=== PATIENT | male | born 1965 | race Caucasian/White ===

== ENCOUNTER 2018-03-10 09:50 | Emergency (ER) | payer BC, OTHER ==
[2018-03-10 09:58] VITALS: RESP 18; TEMP 98.2
[2018-03-10] MEDS ORDERED: DIPH,PERTUS(ACELL)TETVAC-LF 0.5 ML VIAL IM ONE (10:24)
--- NOTE | 2018-03-10 10:44 | ED ---
General Adult HPI - General Chief complaint: Fall Stated complaint: IHS-Head Lac Time Seen by Provider: 03/10/18 10:16 Source: patient, RN notes reviewed Mode of arrival: wheelchair Limitations: no limitations - History of Present Illness Initial comments: Patient 52-year-old male presented to the emergency room today with a chief complaint of a head injury that occurred just prior to arrival. Patient does admit that he was at work. He states he does not remember the fall. Does not remember: His boss. History is provided by his boss is at bedside. He states that he called them telling him that he slipped and hit his head and was bleeding. He does admit that he was at a house and couldn't tell by Lazarus in the snow that it appeared that he came out of the house slipped and believes that he hit the back of his head on a stair edge causing this laceration. Patient states he is unsure if he lost consciousness as he does not remember the accident. States is not on any blood thinners. He does admit some mild low back pain and neck pain. Patient denies any other complaints. Patient denies any recent fever, chills, shortness of breath, chest pain, abdominal pain , nausea or vomiting, numbness or tingling, visual changes, or any other complaints. - Related Data Home Medications Medication Instructions Recorded Confirmed No Known Home Medications 03/10/18 03/10/18 Allergies Allergy/AdvReac Type Severity Reaction Status Date / Time monosodium glutamate [MSG] AdvReac MIGRAINES Verified 03/10/18 10:25 Review of Systems ROS Statement: Those systems with pertinent positive or pertinent negative responses have been documented in the HPI. ROS Other: All systems not noted in ROS Statement are negative. Past Medical History Past Medical History: Osteoarthritis (OA) Additional Past Medical History / Comment(s): 03-20-15 ADMITTED W/ LT LEG SWELLING,PAIN SOB IF LYING DOWN BETTER IF SITS UP- HAD US POSITIVE FOR DVT. CLINCIAL IMPRESSION: PAULETTE PE, DVT, DYSPNEA ASBESTOS EXPOSURE BUT RECENT CHEST X RAY CLEAR, HIATAL HERNIA, MIGRAINES TRIGGERED BY MSG.KIDNEY STONES 11 YEARS AGO PASSED OWN OWN. History of Any Multi-Drug Resistant Organisms: None Reported Past Surgical History: Back Surgery, Orthopedic Surgery, Tonsillectomy Additional Past Surgical History / Comment(s): ROTATOR CUFF SURGERY APPROX 3 WEEKS AGO AT [facility], FUSION C5-C6, CYST REMOVED RT AXILLA AGE 8 Past Anesthesia/Blood Transfusion Reactions: No Reported Reaction Past Psychological History: No Psychological Hx Reported Smoking Status: Never smoker Past Alcohol Use History: None Reported Past Drug Use History: None Reported - Past Family History Father History Unknown: Yes Additional Family Medical History / Comment(s): PT WAS RAISED BY STEP FATHER Mother Family Medical History: Diabetes Mellitus, Hypertension Brother(s) Family Medical History: No Reported History Sister(s) Family Medical History: No Reported History Daughter(s) Family Medical History: Asthma General Exam - General Exam Comments Initial Comments: General: The patient is awake and alert, in no distress, and does not appear acutely ill. Eye: Pupils are equal, round and reactive to light, extra-ocular movements are intact. No nystagmus. There is normal conjunctiva bilaterally. No signs of icterus. Ears, nose, mouth and throat: There are moist mucous membranes and no oral lesions. Neck: The neck is supple, there is no tenderness or JVD. Cardiovascular: There is a regular rate and rhythm. No murmur, rub or gallop is appreciated. Respiratory: Lungs are clear to auscultation, respirations are non-labored, breath sounds are equal. No wheezes, stridor, rales, or rhonchi. Gastrointestinal: Soft, non-distended, non-tender abdomen without masses or organomegaly noted. There is no rebound or guarding present. No CVA tenderness Musculoskeletal: Normal ROM. Normal appearance of cervical, thoracic and lumbar spine with no step-off deformity. Patient has no tenderness midline in cervical, thoracic or lumbar spine. Strength 5/5. Sensation intact. Pulses equal bilaterally 2+. Normal finger nose testing. Normal rapid alternating movements. Strength 5/5 bilaterally both upper and lower extremities. Neurological: A&O x 3. CN II-XII intact, There are no obvious motor or sensory deficits. Coordination appears grossly intact. Speech is normal. Skin: Skin is warm and dry and no rashes or lesions are noted. Psychiatric: Cooperative, appropriate mood & affect, normal judgment. Limitations: no limitations Course Vital Signs 03/10/18 09:55 Temperature 98.2 F Pulse Rate 89 Respiratory 18 Rate Blood Pressure 141/94 O2 Sat by Pulse 94 L Oximetry Medical Decision Making - Medical Decision Making CT the head and neck is negative for any acute abnormality. Results were discussed with the patient. Patient will be discharged home as is doing well at this time. Signs and symptoms of concussion were discussed in detail. Patient does have laceration to back of the scalp. No suturing or nader required. Patient will be discharged home to follow-up family doctor in the next 2 days. Advised to return here to emergency room symptoms increase or worsen or for any other concerns. Disposition Clinical Impression: Concussion, Fall, Scalp laceration Disposition: HOME SELF-CARE Condition: Good Instructions: Concussion (ED) Additional Instructions: Please use medication as discussed. Please follow-up with family doctor in the next 2 days. Please return to emergency room if the symptoms increase or worsen or for any other concerns. Is patient prescribed a controlled substance at d/c from ED?: No Referrals: Alfonso Palm DO [Primary Care Provider] - 1-2 days Time of Disposition: 12:30
--- NOTE | 2018-03-10 11:35 | CT ---
EXAMINATION TYPE: CT brain [facility] DATE OF EXAM: 03/10/2018 COMPARISON: NONE HISTORY: Fall injury striking back of head with headache and neck pain CT DLP: 1521.3 mGycm. Automated Exposure Control for Dose Reduction was Utilized. TECHNIQUE: CT scan of the head and cervical spine are performed without contrast. FINDINGS: There is no acute intracranial hemorrhage, mass effect, or midline shift identified. The ventricles and sulci are within normal limits in size. Septum pellucidum vergae is incidentally see n. The globes are intact and the visualized sinuses are clear. The calvarium is intact. Cervical spine is visualized in its entirety from C1 through upper thoracic levels and demonstrates s traightened alignment without evidence of acute fracture or dislocation. Prevertebral soft tissue ap pears within normal limits. The C1-C2 articulation shows asymmetric right-sided mild to moderate rosey rowing and spurring on the coronal images. There is moderate narrowing of the atlantodental interval . There is anterior fusion plate with artificial disc material and ossific fusion C5-C6 level. There is mild to moderate disc space narrowing with moderate anterior spurring C4-C5 level. There is modera te anterior spurring C6-C7 level. Posterior spur disc complexes are effacing anterior thecal sac at C 3-C4 and C4-C5 level on sagittal images. Review of axial images shows left-sided uncovertebral facet spurring causing mild to moderate narrowi ng at C2-C3 level. Axial images at C4-C5 level show broad-based spur disc complex effacing anterior thecal sac and causi ng moderate to severe right greater than left bilateral neural foraminal narrowing. Lower cervical levels felt within normal limits. Thyroid gland is felt within normal limits. Lung api lyla are clear. IMPRESSION: 1. There is no acute fracture or dislocation evident in the cervical spine. 2. No acute intracranial hemorrhage or midline shift is seen.
--- NOTE | 2018-03-10 11:46 | XR ---
Lumbar spine history: Trauma and pain 3 views of the lumbar spine Correlation to lumbar MRI 01/21/2016 Anterolisthesis grade 1 L4-5 is stable. There is multilevel spondylosis. Loss of disc height present L4-5, L5-S1. Facet arthropathy changes are noted. Lumbar vertebral bodies show preserved height and b one mineralization. IMPRESSION: No acute fracture or subluxation. Degenerative disc disease and facet arthropathy.
[2018-03-10] MEDS ORDERED: IBUPROFEN 600 MG TAB PO STA (12:31)
[2018-03-10 12:53] VITALS: BP 112/74; PULSE 72
== END 2018-03-10 13:10 | disposition home or self-care (01) ==
LOC: EC 09:50
DX: S06.0X0A Concussion without loss of consciousness, initial encounter (principal); S01.01XA Laceration without foreign body of scalp, initial encounter; M54.2 Cervicalgia; M54.5 Low back pain; Z23 Encounter for immunization; Z86.711 Personal history of pulmonary embolism; Z86.718 Personal history of other venous thrombosis and embolism; Z87.442 Personal history of urinary calculi; Z98.1 Arthrodesis status; Z98.890 Other specified postprocedural states; Z88.8 Allergy status to other drugs, medicaments and biological substances; W01.10XA Fall on same level from slipping, tripping and stumbling with subsequent striking against unspecified object, initial encounter; Y92.69 Other specified industrial and construction area as the place of occurrence of the external cause; Y99.0 Civilian activity done for income or pay
CPT/HCPCS: 70450; 72100; 72125; 90471; 90715; 99284

== ENCOUNTER → 2018-04-01 | Outpatient (CLI) | payer OTHER ==
--- NOTE | 2018-04-01 22:48 | MR ---
EXAMINATION TYPE: MR brain wo con DATE OF EXAM: 04/01/2018 COMPARISON: CT brain March 10, 2018. HISTORY: Dizziness, headaches, off balance, hx head trauma TECHNIQUE: Multiplanar, multisequence imaging of the brain and brainstem is performed without IV cont rast. FINDINGS: Diffusion weighted images demonstrate no evidence of a recent infarct or other diffusion abnormality. There is no worrisome extra-axial fluid collection. The ventricular system and cisternal spaces are normal in size and appearance. The brain volume is age appropriate. Septum pellucidum vergae is rede monstrated. T2*weighted images show no suspicious intraparenchymal blood product. There are few scatt ered foci of T2 hyperintensity seen throughout the white matter bilaterally. Approximately 15-20 scat tered lesions are present, lesions are nonspecific in appearance and distribution but most likely on basis of product of chronic small vessel ischemic change in patient this age. Midline structures demonstrate normal morphology. The craniocervical junction appears within normal limits. Normal vascular flow voids are present. The visualized sinuses are clear and the globes are i ntact. IMPRESSION: Msas-ps-[id number] nonspecific white matter changes may be on the basis of product of chron ic small vessel ischemic change in a patient of this age. No suspicious intraparenchymal blood produc t is noted.
--- NOTE | 2018-04-01 23:22 | MR ---
EXAMINATION TYPE: MR lumbar spine wo con DATE OF EXAM: 04/01/2018 COMPARISON: Prior MRI lumbar spine January 21, 2016. Prior lumbar spine x-ray March 10 2018. HISTORY: LBP, tingling/numbness lt leg after fall on ice 3 wks ago TECHNIQUE: Multiplanar, multisequence imaging of the lumbar spine is performed without IV contrast. FINDINGS: Sagittal images of the lumbar spine show vertebral body heights and alignment to remain sat isfactory. Multilevel disc desiccation is redemonstrated but this space heights are fairly well maint ained. Small posterior disc herniation L5-S1 level is redemonstrated with increased posterior signal consistent with annular tear redemonstrated. The conus medullaris remains normal in position and sig nal ending at T12-L1 disc space level. The bone marrow signal intensity is within normal limits. Mil d multilevel anterior spurring is present. Axial images at T12-L1 and L1-L2 levels region is mild facet degenerative changes bilaterally but the spinal canal is preserved and bilateral neural foramina are patent. Axial images at L2-L3 level show kkcz-im-ochrnpjg broad disc bulge mildly effaces the anterior thecal sac 9 axial image 18. There are mild facet degenerative changes seen bilaterally. There is mild left and jlvz-ux-esuvmonl right-sided anterior inferior neural foraminal narrowing. Some progression fro m prior study is felt present. Axial images at L3-L4 level show moderate broad disc bulge effacing the anterior thecal sac on axial image 12. There is mild/moderate facet degenerative changes seen bilaterally. There is lqpp-fq-xxmtsc te bilateral anterior inferior neural foraminal narrowing redemonstrated. No significant change from prior. Axial images at L4-L5 level show moderate to advanced facet degenerative changes and ligamentum flavu m hypertrophy with some effacement of the posterior lateral thecal sac. There is eqpd-kz-fysvsyuv bro ad-based posterior disc protrusion effacing the anterior thecal sac. There is cthq-sp-itfsqxoz bilate ral anterior inferior neural foraminal narrowing seen. No significant change from prior MRI is noted. Axial images at the L5-S1 level shows moderate facet degenerative changes bilaterally. There is centr al disc protrusion seen in the spinal canal is preserved as is prominence of epidural fat at this lev el identified. Bilateral neural foramina are patent. Paraspinal muscle bulk is preserved. IMPRESSION: Multilevel degenerative changes in lumbar spine as detailed above with most prominent fin dings noted L4-L5 level. Some progression in degenerative changes L2-L3 level are noted from prior MR I.
== END | disposition home or self-care (01) ==
LOC: RADMRIMAIN 20:54
PROVIDERS: ATTEND Emergency Medicine
DX: M47.816 Spondylosis without myelopathy or radiculopathy, lumbar region (principal); R90.89 Other abnormal findings on diagnostic imaging of central nervous system; G44.321 Chronic post-traumatic headache, intractable; S00.03XA Contusion of scalp, initial encounter; S13.4XXA Sprain of ligaments of cervical spine, initial encounter; S30.0XXA Contusion of lower back and pelvis, initial encounter; R20.9 Unspecified disturbances of skin sensation
CPT/HCPCS: 70551; 72148

== ENCOUNTER 2021-01-11 08:05 | Inpatient (IN) | payer BC, OTHER ==
[2021-01-11] MEDS ORDERED: DEXAMETHASONE SOD PHOSPHATE 10 MG/ML 1 ML VIAL IVP STA (08:19)
[2021-01-11] MEDS ORDERED: SODIUM CHLORIDE 0.9% 1,000 ML IV STA (08:19)
[2021-01-11] MEDS ORDERED: ACETAMINOPHEN TAB 325 MG TAB PO STA (08:23)
[2021-01-11] MEDS ORDERED: IBUPROFEN 800 MG TAB PO STA (08:23)
[2021-01-11 09:03] LABS: Basophils % (A) 1 %; Eosinophils % (A) 0 %; HCT 50.1 % (39.0-53.0); HGB 16.8 gm/dL (13.0-17.5); Lymphocytes # (A) 0.9 k/uL (1.0-4.8); Lymphocytes % (A) 14 %; MCH 30.6 pg (25.0-35.0); MCHC 33.5 g/dL (31.0-37.0); MCV 91.2 fL (80.0-100.0); Mean Platelet Volume 7.9; Monocytes # (A) 0.2 k/uL (0-1.0); Monocytes % (A) 4 %; Neutrophils # (A) 4.9 k/uL (1.3-7.7); Neutrophils % (A) 80 %; Platelet Count 128 k/uL (150-450); RBC 5.49 m/uL (4.30-5.90); RDW 12.8 % (11.5-15.5); WBC 6.1 k/uL (3.8-10.6)
--- NOTE | 2021-01-11 09:12 | XR ---
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 There are patchy bilateral airspace opacity greatest in the mid and lower lungs. No pleural effusion. IMPRESSION: Patchy bilateral airspace disease especially mid and lower lungs. Correlate for multifocal pneumonia including the possibility of COVID pneumonia.
[2021-01-11 09:43] LABS: INR 0.9 (<1.2); Partial Thromboplastin Time 23.4 sec (22.0-30.0); Prothrombin Time 9.9 sec (9.0-12.0)
[2021-01-11 10:24] LABS: ALT 37 U/L (4-49); AST 36 U/L (17-59); African American GFR (CKD) >90 (>60 ml/min/1.73 sqM); Albumin 2.8 g/dL (3.5-5.0); Alkaline Phosphatase 48 U/L (38-126); Anion Gap 5 mmol/L; Blood Urea Nitrogen 15 mg/dL (9-20); Calcium 7.6 mg/dL (8.4-10.2); Carbon Dioxide 23 mmol/L (22-30); Chloride 103 mmol/L (98-107); Glucose 147 mg/dL (74-99); Non-African American GFR(CKD) 87 (>60 ml/min/1.73 sqM); Potassium 3.9 mmol/L (3.5-5.1); Sodium 131 mmol/L (137-145); Total Bilirubin 0.7 mg/dL (0.2-1.3); Total Protein 5.2 g/dL (6.3-8.2)
[2021-01-11] MEDS ORDERED: NALOXONE 0.4 MG/ML 1 ML VIAL IV PRN (10:47)
--- NOTE | 2021-01-11 11:18 | CT ---
EXAMINATION TYPE: CT chest angio for PE DATE OF EXAM: 01/11/2021 COMPARISON: Chest x-ray earlier today. CTA chest August 01, 2015 HISTORY: Positive d-dimer, shortness of breath, +covid. CT DLP: 513 mGycm. Automated Exposure Control for Dose Reduction was Utilized. CONTRAST: CTA scan of the thorax is performed with IV Contrast, patient injected with 100 mL of Isovue 370, pul monary embolism protocol. MIP Images are created on CT scanner and reviewed. FINDINGS: Exam is suboptimal as patient unable to hold breath. LUNGS: Bilateral multifocal groundglass opacities are confirmed greater in the right lung versus left lung and greater in the lower lungs worse upper lungs were they are more confluent in appearance. No significant pleural effusion or pneumothorax. MEDIASTINUM: There is suboptimal bolus with most dense contrast in the SVC and there is contrast in t he aorta versus pulmonary arteries. There is heterogeneity in the periphery, there is no central pulm onary embolism. Cannot entirely exclude segmental and subsegmental pulmonary emboli on this study. Th ere are prominent borderline enlarged prevascular along with AP window and subcarinal lymph nodes. Mi ldly enlarged bilateral hilar lymph nodes. No cardiomegaly or pericardial effusion is seen. Main pu lmonary artery mildly enlarged at 3.2 cm, CT findings suggesting underlying pulmonary artery hyperten freddy. OTHER: Visualized liver is markedly hypodense consistent with diffuse fatty infiltration. Subareolar flame-shaped gynecomastia. IMPRESSION: Suboptimal study without central acute pulmonary embolism. Bilateral multifocal and confl uent groundglass opacities right greater than left greater in the lower lungs consistent with known c ovid-19 infection correlates with same day x-ray.
[2021-01-11] MEDS: SODIUM CHLORIDE 0.9% 1,000 ML IV SCH ×2 (11:28→20:11)
--- NOTE | 2021-01-11 11:33 | ED ---
Fever HPI - General Chief Complaint: Fever Stated Complaint: SOB, fever, cough Time Seen by Provider: 01/11/21 08:16 Source: patient, RN notes reviewed Mode of arrival: ambulatory Limitations: physical limitation - History of Present Illness Initial Comments: Patient is a 55-year-old male that presents to the emergency department complaining of increased shortness of breath, fatigue He notes that he has become increasingly short of breath with minimal activity over the past several days. He notes this is what brought him into the emergency department get evaluated. Denied being vaccinated for Covid. Patient denied any previous lung issues and does not follow-up with a specialist. He denied any chest pain headache nausea vomiting diarrhea constipation chills. - Related Data Home Medications Medication Instructions Recorded Confirmed Betamethasone Dipropionate 1 applic TOPICAL BID 01/11/21 01/11/21 [Betamethasone Dipropionate 0.05%] Allergies Allergy/AdvReac Type Severity Reaction Status Date / Time monosodium glutamate [MSG] AdvReac MIGRAINES Verified 01/11/21 09:54 Review of Systems ROS Statement: Those systems with pertinent positive or pertinent negative responses have been documented in the HPI. ROS Other: All systems not noted in ROS Statement are negative. Past Medical History Past Medical History: Osteoarthritis (OA) Additional Past Medical History / Comment(s): 03-20-15 ADMITTED W/ LT LEG SWELLING,PAIN SOB IF LYING DOWN BETTER IF SITS UP- HAD US POSITIVE FOR DVT. CLINCIAL IMPRESSION: PAULETTE PE, DVT, DYSPNEA ASBESTOS EXPOSURE BUT RECENT CHEST X RAY CLEAR, HIATAL HERNIA, MIGRAINES TRIGGERED BY MSG.KIDNEY STONES 11 YEARS AGO PASSED OWN OWN. History of Any Multi-Drug Resistant Organisms: None Reported Past Surgical History: Back Surgery, Orthopedic Surgery, Tonsillectomy Additional Past Surgical History / Comment(s): ROTATOR CUFF SURGERY APPROX 3 WEEKS AGO AT [facility], FUSION C5-C6, CYST REMOVED RT AXILLA AGE 8 Past Anesthesia/Blood Transfusion Reactions: No Reported Reaction Past Psychological History: No Psychological Hx Reported Past Alcohol Use History: None Reported Past Drug Use History: None Reported - Past Family History Father History Unknown: Yes Additional Family Medical History / Comment(s): PT WAS RAISED BY STEP FATHER Mother Family Medical History: Diabetes Mellitus, Hypertension Brother(s) Family Medical History: No Reported History Sister(s) Family Medical History: No Reported History Daughter(s) Family Medical History: Asthma General Exam Limitations: no limitations General appearance: alert, in no apparent distress, obese Head exam: Present: atraumatic, normocephalic, normal inspection Eye exam: Present: normal appearance, PERRL, EOMI. Absent: scleral icterus, conjunctival injection, periorbital swelling ENT exam: Present: normal exam, mucous membranes moist Neck exam: Present: normal inspection Respiratory exam: Present: normal lung sounds bilaterally. Absent: respiratory distress, wheezes, rales, rhonchi, stridor Cardiovascular Exam: Present: regular rate, normal rhythm, normal heart sounds. Absent: systolic murmur, diastolic murmur, rubs, gallop, clicks GI/Abdominal exam: Present: soft, normal bowel sounds. Absent: distended, t enderness, guarding, rebound, rigid Extremities exam: Present: normal inspection, full ROM, normal capillary refill. Absent: tenderness, pedal edema, joint swelling, calf tenderness Neurological exam: Present: alert, oriented X3 Psychiatric exam: Present: normal affect, normal mood Skin exam: Present: warm, dry, intact, normal color. Absent: rash Course Vital Signs 01/11/21 01/11/21 08:07 09:32 Temperature 101.1 F H 100.1 F H Pulse Rate 90 86 Respiratory 22 18 Rate Blood Pressure 122/80 O2 Sat by Pulse 85 L 95 Oximetry Medical Decision Making - Medical Decision Making 55-year-old male complaining of shortness of breath, fever and fatigue. Covid test, labs, chest x-ray, 10 mg of Decadron ordered. 3 L of oxygen via nasal cannula ordered. Covid test positive. Labs: D-dimer 0.83, rest of labs unremarkable. 650 mg of Tylenol, 800 mg of Motrin ordered for fever. CTA of the chest ordered for possible pulmonary embolism. Dr. Gilliland was consulted and will accept the admit with pulmonary on consult. Upon arrival patient's oxygen saturation room air was 85% but increased to 95 with 3 L oxygen. Rest of vitals stable. Case discussed with Dr. Mcgovern. - Lab Data Result diagrams: 01/11/21 08:45 01/11/21 10:05 Lab Results 01/11/21 01/11/21 01/11/21 Range/Units 08:45 08:45 08:45 WBC 6.1 (3.8-10.6) k/uL RBC 5.49 (4.30-5.90) m/uL Hgb 16.8 (13.0-17.5) gm/dL Hct 50.1 (39.0-53.0) % MCV 91.2 (80.0-100.0) fL MCH 30.6 (25.0-35.0) pg MCHC 33.5 (31.0-37.0) g/dL RDW 12.8 (11.5-15.5) % Plt Count 128 L (150-450) k/uL MPV 7.9 Neutrophils % 80 % Lymphocytes % 14 % Monocytes % 4 % Eosinophils % 0 % Basophils % 1 % Neutrophils # 4.9 (1.3-7.7) k/uL Lymphocytes # 0.9 L (1.0-4.8) k/uL Monocytes # 0.2 (0-1.0) k/uL Eosinophils # 0.0 (0-0.7) k/uL Basophils # 0.0 (0-0.2) k/uL PT 9.9 (9.0-12.0) sec INR 0.9 (<1.2) APTT 23.4 (22.0-30.0) sec D-Dimer 0.82 H (<0.60) mg/L FEU Sodium (137-145) mmol/L Potassium (3.5-5.1) mmol/L Chloride (98-107) mmol/L Carbon Dioxide (22-30) mmol/L Anion Gap mmol/L BUN (9-20) mg/dL Creatinine (0.66-1.25) mg/dL Est GFR (CKD-EPI)AfAm (>60 ml/min/1.73 sqM) Est GFR (CKD-EPI)NonAf (>60 ml/min/1.73 sqM) Glucose (74-99) mg/dL Plasma Lactic Acid Brandan 1.1 (0.7-2.0) mmol/L Calcium (8.4-10.2) mg/dL Total Bilirubin (0.2-1.3) mg/dL AST (17-59) U/L ALT (4-49) U/L Alkaline Phosphatase (38-126) U/L Troponin I (0.000-0.034) ng/mL Total Protein (6.3-8.2) g/dL Albumin (3.5-5.0) g/dL Coronavirus (PCR) (Not Detectd) 01/11/21 01/11/21 01/11/21 Range/Units 08:45 10:05 10:05 WBC (3.8-10.6) k/uL RBC (4.30-5.90) m/uL Hgb (13.0-17.5) gm/dL Hct (39.0-53.0) % MCV (80.0-100.0) fL MCH (25.0-35.0) pg MCHC (31.0-37.0) g/dL RDW (11.5-15.5) % Plt Count (150-450) k/uL MPV Neutrophils % % Lymphocytes % % Monocytes % % Eosinophils % % Basophils % % Neutrophils # (1.3-7.7) k/uL Lymphocytes # (1.0-4.8) k/uL Monocytes # (0-1.0) k/uL Eosinophils # (0-0.7) k/uL Basophils # (0-0.2) k/uL PT (9.0-12.0) sec INR (<1.2) APTT (22.0-30.0) sec D-Dimer (<0.60) mg/L FEU Sodium 131 L (137-145) mmol/L Potassium 3.9 (3.5-5.1) mmol/L Chloride 103 (98-107) mmol/L Carbon Dioxide 23 (22-30) mmol/L Anion Gap 5 mmol/L BUN 15 (9-20) mg/dL Creatinine 0.98 (0.66-1.25) mg/dL Est GFR (CKD-EPI)AfAm >90 (>60 ml/min/1.73 sqM) Est GFR (CKD-EPI)NonAf 87 (>60 ml/min/1.73 sqM) Glucose 147 H (74-99) mg/dL Plasma Lactic Acid Brandan (0.7-2.0) mmol/L Calcium 7.6 L (8.4-10.2) mg/dL Total Bilirubin 0.7 (0.2-1.3) mg/dL AST 36 (17-59) U/L ALT 37 (4-49) U/L Alkaline Phosphatase 48 (38-126) U/L Troponin I <0.012 (0.000-0.034) ng/mL Total Protein 5.2 L (6.3-8.2) g/dL Albumin 2.8 L (3.5-5.0) g/dL Coronavirus (PCR) Detected A (Not Detectd) - Radiology Data Radiology results: report reviewed, image reviewed CT chest: Suboptimal study without central acute pulmonary embolism. Bilateral multifocal and confluent groundglass opacities right greater than left, greater in the lower lungs consistent with known COVID-19 infection correlates with same-day x-ray. Disposition Clinical Impression: COVID, Hypoxia Disposition: ADMITTED IP TO THIS HOSP Condition: Stable Referrals: Alfonso Palm DO [Primary Care Provider] - 1-2 days Time of Disposition: 11:33
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
[2021-01-11] MEDS: dexAMETHasone 2 MG TAB PO SCH (14:52)
[2021-01-11] MEDS: ENOXAPARIN 40 MG/0.4 ML SYRINGE SQ SCH (14:52)
[2021-01-11] MEDS: ZINC SULFATE 220 MG CAP PO SCH (14:52)
[2021-01-11] MEDS: ASCORBIC ACID 500 MG TAB PO SCH (14:53)
[2021-01-11] MEDS: CHOLECALCIFEROL 25 MCG (1000 IU) TABLET PO SCH (14:53)
[2021-01-11] MEDS ORDERED: REMDESIVIR 200 MG in SODIUM CHLORIDE 0.9% 250 ML IVPB ONE (15:00)
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
--- NOTE | 2021-01-11 19:43 | US ---
EXAMINATION TYPE: US venous doppler duplex LE DATE OF EXAM: 01/11/2021 7:23 PM COMPARISON: Left lower extremity venous Doppler dated 03/20/2015 CLINICAL HISTORY: elevated d-dimer. Prior DVT; Covid -19 SIDE PERFORMED: Bilateral TECHNIQUE: The lower extremity deep venous system is examined utilizing real time linear array sonog gaurav with graded compression, doppler sonography and color-flow sonography. VESSELS IMAGED: Common Femoral Vein Deep Femoral Vein Greater Saphenous Vein * Femoral Vein Popliteal Vein Small Saphenous Vein * Proximal Calf Veins (* superficial vessels) Grayscale, color doppler, spectral doppler imaging performed of the deep veins of the lower extremiti es. Right Leg: Negative for DVT Left Leg: Wall echoes are noted in distal Popliteal Vein and at valves in one of 2 upper calf veins suggestive of chronic changes. Color flow patency is documented here; otherwise left leg is negative for acute DVT. Tech called findings to patient's RN, Eryn, at exam's end. IMPRESSION: 1. Small amount of increased echogenicity arising from the wall of the distal popliteal vein/proximal calf veins with no obstruction of flow, given the history of prior left lower extremity DVT in the p osterior tibial veins (03/20/2015) findings are favored to be on the basis of chronic DVT no evidence for flow occluding acute DVT in the left lower extremity. 2. No sonographic evidence for acute deep vein thrombosis in the right lower extremity.
[2021-01-11] MEDS: ACETAMINOPHEN TAB 325 MG TAB PO PRN (21:12)
[2021-01-12] MEDS: SODIUM CHLORIDE 0.9% 1,000 ML IV SCH ×3 (02:36→17:01)
[2021-01-12] MEDS: ZINC SULFATE 220 MG CAP PO SCH (08:14)
[2021-01-12] MEDS: ENOXAPARIN 40 MG/0.4 ML SYRINGE SQ SCH (08:14)
[2021-01-12] MEDS: CHOLECALCIFEROL 25 MCG (1000 IU) TABLET PO SCH (08:14)
[2021-01-12] MEDS: dexAMETHasone 2 MG TAB PO SCH (08:14)
[2021-01-12] MEDS: ASCORBIC ACID 500 MG TAB PO SCH (08:14)
[2021-01-12] MEDS: ACETAMINOPHEN TAB 325 MG TAB PO PRN ×2 (08:21→17:02)
[2021-01-12] MEDS ORDERED: REMDESIVIR 100 MG in SODIUM CHLORIDE 0.9% 250 ML IVPB SCH (09:00)
--- NOTE | 2021-01-12 12:13 | P.PN ---
Subjective Progress Note Date: 01/12/21 Principal diagnosis: COVID-19 pneumonia 55-year-old male patient of Dr. Palm, with a past medical history of bilateral pulmonary emboli, and left leg DVT, migraine headaches, hiatal hernia, inguinal hernias, osteoarthritis with previous history of right shoulder arthroscopy, cervical fusion, nonsmoker, who came into the emergency department on 01/11/2021 for evaluation of shortness of breath, fatigue, cough, fever. His symptoms started on Thursday01/11/2021 and became progressive. Patient is not vaccinated against COVID-19. Chest x-ray today shows patchy bilateral airspace disease especially in the mid and lower lungs. COVID-19 PCR was negative, his white count is 6.1, hemoglobin is 16.8, platelet count is 128, lymphocyte count is 0.9, d-dimer is 0.82, coagulation profile was within normal limits, sodium is 131, the rest of electrolytes are within normal limits, troponin was less than 0.012, LFTs were within normal limits, lactic acid was 1.1. CT angiogram of the chest showed suboptimal study without central acute pulmonary embolism, and bilateral multifocal and confluent groundglass opacities right greater than left and greater in the lower lungs consistent with history of COVID-19 infection. Pulse ox was 85%, patient was febrile on presentation with a temp of 101.1F, he was placed on 3 L of supplemental oxygen, he is awake and alert, does not appear to be in any acute distress, he is ambulating, and does have exertional dyspnea but no acute distress. He was started on Decadron 10 mg IV push 1, prophylactic Lovenox, and multivitamins The patient is seen today 01/12/2021 in follow-up on the regular medical floor. He is currently sitting up in a chair at the bedside. His oxygen requirements to go up. He is currently on a 15 L nonrebreather mask with O2 saturation 91%. He was on 4 L yesterday. He is having more shortness of breath. 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 D-dimer 0.84. LDH 684. C-reactive protein 7.0. He is on day #2 of Remdesivir. He remains on Decadron, Lovenox, vitamin supplements. 0.9 normal saline at 130 ML's per hour. Objective - Vital Signs Vital signs: Vital Signs Temp 98.4 F 01/12/21 10:45 Pulse 83 01/12/21 10:45 Resp 22 01/12/21 10:45 BP 104/68 01/12/21 10:45 Pulse Ox 89 L 01/12/21 10:45 Intake & Output 01/11/21 01/12/21 01/12/21 18:59 06:59 18:59 Intake Total 222 Output Total 1 Balance -1 222 Weight 108.862 kg Intake: Oral 222 Output: Urine 1 - Exam GENERAL EXAM: Alert, pleasant 55-year-old gentleman, on 15 L high flow nasal cannula, in a chair at the bedside, make with minimal exertion. HEAD: Normocephalic. EYES: Normal reaction of pupils, equal size. NOSE: Clear with pink turbinates. THROAT: No erythema or exudates. NECK: No masses, no JVD. CHEST: No chest wall deformity. LUNGS: Equal air entry with coarse crackles in the bilateral bases. CVS: S1 and S2 normal with no audible murmur, regular rhythm. ABDOMEN: No hepatosplenomegaly, normal bowel sounds, no guarding or rigidity. SPINE: No scoliosis or deformity SKIN: No rashes CENTRAL NERVOUS SYSTEM: No focal deficits, tone is normal in all 4 extremities. EXTREMITIES: There is no peripheral edema. No clubbing, no cyanosis. Peripheral pulses are intact. - Labs CBC & Chem 7: 01/11/21 08:45 01/11/21 10:05 Labs: Abnormal Lab Results - Last 24 Hours (Table) 01/12/21 Range/Units 07:38 D-Dimer 0.84 H (<0.60) mg/L FEU Assessment and Plan Assessment: 1 Acute hypoxic respiratory failure related to COVID-19 pneumonia, onset of symptoms was 5 days prior to presentation. Patient is not vaccinated against COVID-19, Remdesivir started on 01/11/2021 however the patient's pressure requirements have gone up. Remdesivir we'll be discontinued today 01/12/2021 and the patient will be initiated on Baricitinib 2 Previous history of bilateral pulmonary emboli and left leg DVT back in 2016, currently not on any anticoagulation on a regular basis 3 History of osteoarthritis 4 Nonsmoker Plan: The patient was seen and evaluated by Dr. Canales His oxygen requirements have increased This patient AirVo room at 45 L and 90% FiO2 Titrate the FiO2 as tolerated Discontinue Remdesivir Initiate Baricitinib Continue Decadron, Lovenox, vitamin supplements Doppler with chronic DVT in the left leg, no acute DVT Follow-up chest x-ray and labs in the a.m. We will continue to follow I, the cosigning physician, performed a history & physical examination of the p atient. Lungs sounds crackles in the posterior bases. Maintaining O2 saturations in the 90s on AirVo high flow oxygen at 45 L and 90% FiO2. I discussed the assessment and plan of care with my nurse practitioner, Lakeshia Goldstein. I attest to the above note as dictated by her.
[2021-01-12] MEDS: BARICITINIB 2 MG TABLET PO SCH (14:01)
[2021-01-12 16:42] LABS: Glucose,Whole Blood 243 mg/dL (75-99)
--- NOTE | 2021-01-12 20:05 | P.PN ---
Subjective Progress Note Date: 01/12/21 HISTORY OF PRESENT ILLNESS This is a 55-year-old male patient of Dr. 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 Patient states he has not been feeling well since Thursday. He said shortness of breath cough is nonproductive along with fever and chills, exertional dyspnea. He denies having any nausea vomiting or diarrhea. He denies any close contacts to known Covid people. He states his temperature is been up to 102.7 at home. He is not vaccinated. Patient presented to [facility] emergency center and found to be febrile at 101.1, heart rate 90, blood pressure 122/80, pulse ox 85% on room air. CBC revealed platelet count of 128. D-dimer 0.82. Sodium 131 otherwise electrolytes and renal function were normal. Blood sugar 147. Troponin negative. Coronavirus PCR positive. Chest x-ray reveals patchy bilateral airspace disease especially in the mid and lower lungs. Correlate for multifocal pneumonia including Covid 19 pneumonia. CTA of the chest was suboptimal study without central acute pulmonary embolism. Bilateral multifocal and confluent groundglass opacities right greater than left and greater in the lower lungs consistent with known Covid 19 infection. Patient is seen today in the emergency center waiting for bed on the [facility] floor, started on Remdesivir, Lovenox, dexamethasone and vitamin supplements, consult with pulmonary medicine. 01/12: Patient is comfortable, however he requires 40 L of oxygen via airvo sats 88-89%, he feels better today compared to his nonrebreather mask yesterday, patient did not sleep well, patient does not have any cough, however he does have shortness of breath. Patient denies any aspiration, appetite is still marginal, patient has insomnia vitals, blood sugar currently is 243, creatinine of 0.98, d-dimer is 0.84, CRP is elevated, LDH is elevated, venous Doppler, shows chronic DVT, left popliteal, in the posterior tibial veins, without any obstruction of flow. No acute DVT identified CTA, shows suboptimal, without central acute pulmonary emboli, has bilateral multifocal and confluent groundglass opacities, right greater than left, lower lobe, consistent with COVID-19 infection and remdesivir discontinued by pulmonary today REVIEW OF SYSTEMS Constitutional: Reports fever, Reports chills, Reports night sweats. No weight change. Reports weakness,Reports fatigue Reports lethargy. No daytime sleepiness. EENT: No headache. No blurred vision or double vision, no loss of vision. No loss of Hearing, no ringing in the ears, no dizziness. No nasal drainage or congestion. No epistaxis. No sore throat. Lungs: Reports shortness of breath,Reports cough, no sputum production. No wheezing. Cardiovascular: No chest pain, no lower extremity edema. No palpitations. No paroxysmal nocturnal dyspnea. No orthopnea. No lightheadedness or dizziness. No syncopal episodes. Abdominal: No abdominal pain. No nausea, vomiting. No diarrhea. No constipation. No bloody or tarry stools. No loss of appetite. Genitourinary: No dysuria, increased frequency, urgency. No urinary retention. Musculoskeletal: No myalgias. Reports muscle weakness, no gait dysfunction, no frequent falls. No back pain. No neck pain. Integumentary: No wounds, no lesions. No rash or pruritus. No unusual bruising. No change in hair or nails. Neurologic: No aphasia. No facial droop. No change in mentation. No head injury. No headache. No paralysis. No paresthesia. Psychiatric: No depression. No anxiety. No mood swings. Endocrine: No abnormal blood sugars. No weight change. No excessive sweating or thirst. No cold intolerance. Objective - Vital Signs Vital signs: Vital Signs Temp 98.2 F 01/12/21 17:59 Pulse 88 01/12/21 17:59 Resp 24 01/12/21 17:59 BP 115/76 01/12/21 17:59 Pulse Ox 91 L 01/12/21 17:59 Intake & Output 01/12/21 01/12/21 01/13/21 06:59 18:59 06:59 Intake Total 222 Balance 222 Intake: Oral 222 Other: # Voids 4 - Constitutional General appearance: Present: cooperative, mild distress - EENT Eyes: Present: EOMI, PERRLA, dentition normal, poor dentition, normal appearance ENT: Present: NA/AT - Neck Neck: Present: normal ROM - Respiratory Respiratory: bilateral: diminished, negative: dullness, rales, rhonchi - Cardiovascular Rhythm: regular Heart sounds: normal: S1, S2 - Gastrointestinal General gastrointestinal: Present: normal bowel sounds - Integumentary Integumentary: Present: normal, normal turgor - Neurologic Neurologic: Present: CNII-XII intact - Musculoskeletal Musculoskeletal: Present: strength equal bilaterally - Psychiatric Psychiatric: Present: A&O x's 3, appropriate affect, intact judgment & insight - Labs CBC & Chem 7: 01/11/21 08:45 01/11/21 10:05 Labs: Abnormal Lab Results - Last 24 Hours (Table) 01/12/21 01/12/21 01/12/21 Range/Units 07:37 07:38 16:40 D-Dimer 0.84 H (<0.60) mg/L FEU POC Glucose (mg/dL) 243 H (75-99) mg/dL Lactate Dehydrogenase 684 H (120-246) U/L C-Reactive Protein 7.00 H (0.00-0.80) mg/dL Assessment and Plan Plan: ASSESSMENT AND PLAN 1. Acute hypoxic respiratory failure secondary to Covid 19 pneumonia non- vaccinated individual. Patient started on Remdesivir was discontinued by pulmonary, on December 2020 started on baricinib 4 mg d , Lovenox, dexamethasone 6 mg dailyand vitamin supplements, consult with pulmonary medicine., Oxygen supplementation airvo at 40 L 2. History of bilateral pulmonary emboli and DVT in 2015. CTA negative for PE. Not on chronic anticoagulation, patient is on Lovenox 3. Generalized osteoarthritis. 4. Degenerative changes in the cervical spine status post fusion of C5-6. 5. GI prophylaxis. Protonix. 6. DVT prophylaxis. Lovenox. Patient will be admitted to the hospital for a minimum of 2 night stay. DISCHARGE PLAN Home. Impression and plan of care have been directed as dictated by the signing physician. Shakila Mosqueda nurse practitioner acting as scribe for signing physician.
[2021-01-12] MEDS: MELATONIN 3 MG TABLET PO SCH (20:07)
[2021-01-13] MEDS: SODIUM CHLORIDE 0.9% 1,000 ML IV SCH ×3 (01:52→19:44)
[2021-01-13 08:01] LABS: Basophils % (A) 0 %; Eosinophils % (A) 0 %; HGB 13.9 gm/dL (13.0-17.5); Lymphocytes # (A) 0.9 k/uL (1.0-4.8); Lymphocytes % (A) 11 %; MCH 30.2 pg (25.0-35.0); MCV 91.4 fL (80.0-100.0); Mean Platelet Volume 8.2; Monocytes # (A) 0.4 k/uL (0-1.0); Monocytes % (A) 4 %; Neutrophils # (A) 7.4 k/uL (1.3-7.7); Neutrophils % (A) 84 %; Platelet Count 161 k/uL (150-450); RBC 4.59 m/uL (4.30-5.90); RDW 12.9 % (11.5-15.5); WBC 8.8 k/uL (3.8-10.6)
[2021-01-13 08:11] LABS: ALT 39 U/L (4-49); AST 49 U/L (17-59); African American GFR (CKD) >90 (>60 ml/min/1.73 sqM); Albumin 2.7 g/dL (3.5-5.0); Albumin/Globulin Ratio 1.2; Alkaline Phosphatase 53 U/L (38-126); Anion Gap 6 mmol/L; Blood Urea Nitrogen 22 mg/dL (9-20); Calcium 7.9 mg/dL (8.4-10.2); Carbon Dioxide 23 mmol/L (22-30); Chloride 108 mmol/L (98-107); Globulin 2.3 g/dL; Glucose 153 mg/dL (74-99); Non-African American GFR(CKD) >90 (>60 ml/min/1.73 sqM); Potassium 4.1 mmol/L (3.5-5.1); Sodium 137 mmol/L (137-145); Total Bilirubin 0.5 mg/dL (0.2-1.3)
[2021-01-13] MEDS: dexAMETHasone 2 MG TAB PO SCH (08:51)
[2021-01-13] MEDS: ENOXAPARIN 40 MG/0.4 ML SYRINGE SQ SCH (08:51)
[2021-01-13] MEDS: ASCORBIC ACID 500 MG TAB PO SCH (08:51)
[2021-01-13] MEDS: CHOLECALCIFEROL 25 MCG (1000 IU) TABLET PO SCH (08:51)
[2021-01-13] MEDS: ZINC SULFATE 220 MG CAP PO SCH (08:52)
[2021-01-13] MEDS: ACETAMINOPHEN TAB 325 MG TAB PO PRN (08:56)
--- NOTE | 2021-01-13 12:43 | P.PN ---
Subjective Progress Note Date: 01/13/21 HISTORY OF PRESENT ILLNESS This is a 55-year-old male patient of Dr. 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 Patient states he has not been feeling well since Thursday. He said shortness of breath cough is nonproductive along with fever and chills, exertional dyspnea. He denies having any nausea vomiting or diarrhea. He denies any close contacts to known Covid people. He states his temperature is been up to 102.7 at home. He is not vaccinated. Patient presented to [facility] emergency center and found to be febrile at 101.1, heart rate 90, blood pressure 122/80, pulse ox 85% on room air. CBC revealed platelet count of 128. D-dimer 0.82. Sodium 131 otherwise electrolytes and renal function were normal. Blood sugar 147. Troponin negative. Coronavirus PCR positive. Chest x-ray reveals patchy bilateral airspace disease especially in the mid and lower lungs. Correlate for multifocal pneumonia including Covid 19 pneumonia. CTA of the chest was suboptimal study without central acute pulmonary embolism. Bilateral multifocal and confluent groundglass opacities right greater than left and greater in the lower lungs consistent with known Covid 19 infection. Patient is seen today in the emergency center waiting for bed on the [facility] floor, started on Remdesivir, Lovenox, dexamethasone and vitamin supplements, consult with pulmonary medicine. 01/12: Patient is comfortable, however he requires 40 L of oxygen via airvo sats 88-89%, he feels better today compared to his nonrebreather mask yesterday, patient did not sleep well, patient does not have any cough, however he does have shortness of breath. Patient denies any aspiration, appetite is still marginal, patient has insomnia vitals, blood sugar currently is 243, creatinine of 0.98, d-dimer is 0.84, CRP is elevated, LDH is elevated, venous Doppler, shows chronic DVT, left popliteal, in the posterior tibial veins, without any obstruction of flow. No acute DVT identified CTA, shows suboptimal, without central acute pulmonary emboli, has bilateral multifocal and confluent groundglass opacities, right greater than left, lower lobe, consistent with COVID-19 infection and remdesivir discontinued by pulmonary today and is outside of the window for remdesivir 21: Patient is on aerosol 14 L, with nonrebreather mask, 15 L, hypoxemia noted on 88%, worse with coughing, however his nonrebreather mask is very loose. Nurse is worriedwith the turn of events, and requested an ICU transfer, Dr. Canales has seen the patient, and is stable for floor management at this time, patient is not significant tachypnea, and is not tiring out. There is no hemoptysis, and mucus is productive, patient's doing incentive spirometry, up 2 L. REVIEW OF SYSTEMS Constitutional: Reports fever, Reports chills, Reports night sweats. No weight change. Reports weakness,Reports fatigue Reports lethargy. No daytime sleepiness. EENT: No headache. No blurred vision or double vision, no loss of vision. No loss of Hearing, no ringing in the ears, no dizziness. No nasal drainage or congestion. No epistaxis. No sore throat. Lungs: Reports shortness of breath,Reports cough, no sputum production. No wheezing. Cardiovascular: No chest pain, no lower extremity edema. No palpitations. No paroxysmal nocturnal dyspnea. No orthopnea. No lightheadedness or dizziness. No syncopal episodes. Abdominal: No abdominal pain. No nausea, vomiting. No diarrhea. No constipation. No bloody or tarry stools. No loss of appetite. Genitourinary: No dysuria, increased frequency, urgency. No urinary retention. Musculoskeletal: No myalgias. Reports muscle weakness, no gait dysfunction, no frequent falls. No back pain. No neck pain. Integumentary: No wounds, no lesions. No rash or pruritus. No unusual bruising. No change in hair or nails. Neurologic: No aphasia. No facial droop. No change in mentation. No head injury. No headache. No paralysis. No paresthesia. Psychiatric: No depression. No anxiety. No mood swings. Endocrine: No abnormal blood sugars. No weight change. No excessive sweating or thirst. No cold intolerance. ASSESSMENT AND PLAN 1. Acute hypoxic respiratory failure secondary to Covid 19 pneumonia non- vaccinated individual. Patient started on Remdesivir was discontinued by pulmonary, on December 2020 started on baricinib 4 mg d , Lovenox, dexamethasone 6 mg dailyand vitamin supplements, consult with pulmonary medicine., Oxygen supplementation airvo at 40 L rebreather 15 L 2. History of bilateral pulmonary emboli and DVT in 2016. CTA negative for PE. Not on chronic anticoagulation, patient is on Lovenox high dose 3. Generalized osteoarthritis. 4. Degenerative changes in the cervical spine status post fusion of C5-6. 5. GI prophylaxis. Protonix. 6. DVT prophylaxis. Lovenox. Patient will be admitted to the hospital for a minimum of 2 night stay. DISCHARGE PLAN Home. vs IP rehab . will expect to stay here for covid protracted length of time Prognosis guarded Vital Signs Temp 98.4 F 01/13/21 05:20 Pulse 67 01/13/21 10:12 Resp 17 01/13/21 10:12 BP 108/71 01/13/21 10:12 Pulse Ox 90 L 01/13/21 10:12 Intake & Output 01/12/21 01/13/21 01/13/21 18:59 06:59 18:59 Other: # Voids 4 3 # Bowel Movements 1 Laboratory Results WBC 8.8 k/uL (3.8-10.6) 01/13/21 07:34 RBC 4.59 m/uL (4.30-5.90) 01/13/21 07:34 Hgb 13.9 gm/dL (13.0-17.5) 01/13/21 07:34 Hct 42.0 % (39.0-53.0) 01/13/21 07:34 MCV 91.4 fL (80.0-100.0) 01/13/21 07:34 MCH 30.2 pg (25.0-35.0) 01/13/21 07:34 MCHC 33.0 g/dL (31.0-37.0) 01/13/21 07:34 RDW 12.9 % (11.5-15.5) 01/13/21 07:34 Plt Count 161 k/uL (150-450) 01/13/21 07:34 MPV 8.2 01/13/21 07:34 Neutrophils % 84 % 01/13/21 07:34 Lymphocytes % 11 % 01/13/21 07:34 Monocytes % 4 % 01/13/21 07:34 Eosinophils % 0 % 01/13/21 07:34 Basophils % 0 % 01/13/21 07:34 Neutrophils # 7.4 k/uL (1.3-7.7) 01/13/21 07:34 Lymphocytes # 0.9 k/uL (1.0-4.8) L 01/13/21 07:34 Monocytes # 0.4 k/uL (0-1.0) 01/13/21 07:34 Eosinophils # 0.0 k/uL (0-0.7) 01/13/21 07:34 Basophils # 0.0 k/uL (0-0.2) 01/13/21 07:34 PT 9.9 sec (9.0-12.0) 01/11/21 08:45 INR 0.9 (<1.2) 01/11/21 08:45 APTT 23.4 sec (22.0-30.0) 01/11/21 08:45 D-Dimer 0.84 mg/L FEU (<0.60) H 01/12/21 07:38 Sodium 137 mmol/L (137-145) 01/13/21 07:30 Potassium 4.1 mmol/L (3.5-5.1) 01/13/21 07:30 Chloride 108 mmol/L (98-107) H 01/13/21 07:30 Carbon Dioxide 23 mmol/L (22-30) 01/13/21 07:30 Anion Gap 6 mmol/L 01/13/21 07:30 BUN 22 mg/dL (9-20) H 01/13/21 07:30 Creatinine 0.84 mg/dL (0.66-1.25) 01/13/21 07:30 Est GFR (CKD-EPI)AfAm >90 (>60 ml/min/1.73 sqM) 01/13/21 07:30 Est GFR (CKD-EPI)NonAf >90 (>60 ml/min/1.73 sqM) 01/13/21 07:30 Glucose 153 mg/dL (74-99) H 01/13/21 07:30 POC Glucose (mg/dL) 243 mg/dL (75-99) H 01/12/21 16:40 POC Glu [employer] Equipment [employer]er ID Kellie Russell 01/12/21 16:40 Plasma Lactic Acid Brandan 1.1 mmol/L (0.7-2.0) 01/11/21 08:45 Calcium 7.9 mg/dL (8.4-10.2) L 01/13/21 07:30 Total Bilirubin 0.5 mg/dL (0.2-1.3) 01/13/21 07:30 AST 49 U/L (17-59) 01/13/21 07:30 ALT 39 U/L (4-49) 01/13/21 07:30 Alkaline Phosphatase 53 U/L (38-126) 01/13/21 07:30 Lactate Dehydrogenase 684 U/L (120-246) H 01/12/21 07:37 Troponin I <0.012 ng/mL (0.000-0.034) 01/11/21 10:05 C-Reactive Protein 7.00 mg/dL (0.00-0.80) H 01/12/21 07:37 Total Protein 5.0 g/dL (6.3-8.2) L 01/13/21 07:30 Albumin 2.7 g/dL (3.5-5.0) L 01/13/21 07:30 Globulin 2.3 g/dL 01/13/21 07:30 Albumin/Globulin Ratio 1.2 01/13/21 07:30 Coronavirus (PCR) Detected (Not Detectd) A 01/11/21 08:45 Objective - Vital Signs Vital signs: Vital Signs Temp 98.4 F 01/13/21 05:20 Pulse 67 01/13/21 10:12 Resp 17 01/13/21 10:12 BP 108/71 01/13/21 10:12 Pulse Ox 90 L 01/13/21 10:12 Intake & Output 01/12/21 01/13/21 01/13/21 18:59 06:59 18:59 Other: # Voids 4 3 # Bowel Movements 1 - Labs CBC & Chem 7: 01/21/21 05:10 01/21/21 05:10 Labs: Abnormal Lab Results - Last 24 Hours (Table) 01/12/21 01/13/21 01/13/21 Range/Units 16:40 07:30 07:34 Lymphocytes # 0.9 L (1.0-4.8) k/uL Chloride 108 H (98-107) mmol/L BUN 22 H (9-20) mg/dL Glucose 153 H (74-99) mg/dL POC Glucose (mg/dL) 243 H (75-99) mg/dL Calcium 7.9 L (8.4-10.2) mg/dL Total Protein 5.0 L (6.3-8.2) g/dL Albumin 2.7 L (3.5-5.0) g/dL
--- NOTE | 2021-01-13 16:31 | P.PN ---
Subjective Progress Note Date: 01/13/21 Principal diagnosis: COVID-19 pneumonia 55-year-old male patient of Dr. Palm, with a past medical history of bilateral pulmonary emboli, and left leg DVT, migraine headaches, hiatal hernia, inguinal hernias, osteoarthritis with previous history of right shoulder arthroscopy, cervical fusion, nonsmoker, who came into the emergency department on 01/11/2021 for evaluation of shortness of breath, fatigue, cough, fever. His symptoms started on Thursday01/11/2021 and became progressive. Patient is not vaccinated against COVID-19. Chest x-ray today shows patchy bilateral airspace disease especially in the mid and lower lungs. COVID-19 PCR was negative, his white count is 6.1, hemoglobin is 16.8, platelet count is 128, lymphocyte count is 0.9, d-dimer is 0.82, coagulation profile was within normal limits, sodium is 131, the rest of electrolytes are within normal limits, troponin was less than 0.012, LFTs were within normal limits, lactic acid was 1.1. CT angiogram of the chest showed suboptimal study without central acute pulmonary embolism, and bilateral multifocal and confluent groundglass opacities right greater than left and greater in the lower lungs consistent with history of COVID-19 infection. Pulse ox was 85%, patient was febrile on presentation with a temp of 101.1F, he was placed on 3 L of supplemental oxygen, he is awake and alert, does not appear to be in any acute distress, he is ambulating, and does have exertional dyspnea but no acute distress. He was started on Decadron 10 mg IV push 1, prophylactic Lovenox, and multivitamins The patient is seen today 01/12/2021 in follow-up on the regular medical floor. He is currently sitting up in a chair at the bedside. His oxygen requirements to go up. He is currently on a 15 L nonrebreather mask with O2 saturation 91%. He was on 4 L yesterday. He is having more shortness of breath. 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 D-dimer 0.84. LDH 684. C-reactive protein 7.0. He is on day #2 of Remdesivir. He remains on Decadron, Lovenox, vitamin supplements. 0.9 normal saline at 130 ML's per hour. The patient is seen today 01/13/2021 in follow-up on the regular medical floor. He is currently sitting up in a chair at the bedside. Awake and alert. He did have some issues with worsening shortness of breath on minimal exertion. He is on the AirVo high flow oxygen at 4 L and 90% FiO2 plus a nonrebreather mask to maintain O2 saturations in the high 80s and low 90s. He's been afebrile. Hemodynamically stable. White count 8.8. Hemoglobin 13.9. Lymphocytes 0.9. Sodium 137. Potassium 4.1. Creatinine 0.4. He is continued on Baricitinib, Decadron, Lovenox, vitamin supplements. Objective - Vital Signs Vital signs: Vital Signs Temp 99.0 F 01/13/21 16:00 Pulse 66 01/13/21 16:00 Resp 14 01/13/21 16:00 BP 120/76 01/13/21 16:00 Pulse Ox 90 L 01/13/21 16:00 Intake & Output 01/12/21 01/13/21 01/13/21 18:59 06:59 18:59 Other: # Voids 4 3 # Bowel Movements 1 - Exam GENERAL EXAM: Alert, pleasant 55-year-old gentleman, on AirVo high flow oxygen at 40 L and 90% FiO2 plus a nonrebreather mask, in a chair at the bedside, dyspneic with minimal exertion. HEAD: Normocephalic. EYES: Normal reaction of pupils, equal size. NOSE: Clear with pink turbinates. THROAT: No erythema or exudates. NECK: No masses, no JVD. CHEST: No chest wall deformity. LUNGS: Equal air entry with coarse crackles in the bilateral bases. CVS: S1 and S2 normal with no audible murmur, regular rhythm. ABDOMEN: No hepatosplenomegaly, normal bowel sounds, no guarding or rigidity. SPINE: No scoliosis or deformity SKIN: No rashes CENTRAL NERVOUS SYSTEM: No focal deficits, tone is normal in all 4 extremities. EXTREMITIES: There is no peripheral edema. No clubbing, no cyanosis. Peripheral pulses are intact. - Labs CBC & Chem 7: 01/13/21 07:34 01/13/21 07:30 Labs: Abnormal Lab Results - Last 24 Hours (Table) 11/01/13/21 01/13/21 Range/Units 16:40 07:30 07:34 Lymphocytes # 0.9 L (1.0-4.8) k/uL Chloride 108 H (98-107) mmol/L BUN 22 H (9-20) mg/dL Glucose 153 H (74-99) mg/dL POC Glucose (mg/dL) 243 H (75-99) mg/dL Calcium 7.9 L (8.4-10.2) mg/dL Total Protein 5.0 L (6.3-8.2) g/dL Albumin 2.7 L (3.5-5.0) g/dL Assessment and Plan Assessment: 1 Acute hypoxic respiratory failure related to COVID-19 pneumonia, onset of symptoms was 5 days prior to presentation. Patient is not vaccinated against COVID-19, Remdesivir started on 01/11/2021 however the patient's oxygen requirements have gone up. Remdesivir we'll be discontinued today 01/12/2021 and the patient will be initiated on Baricitinib. He is now on AirVo high flow oxygen at 45 L and 90% FiO2 plus a nonrebreather mask. He transferred to the intensive care unit on 01/13/2021. 2 Previous history of bilateral pulmonary emboli and left leg DVT back in 2016, currently not on any anticoagulation on a regular basis. Doppler does reveal a chronic left leg DVT but no acute DVTs bilaterally 3 History of osteoarthritis 4 Nonsmoker Plan: The patient was seen and evaluated by Dr. Canales The patient is more dyspneic today His oxygen requirements have increased Currently on AirVo room at 45 L and 90% FiO2 plus a nonrebreather mask Continue Baricitinib, Decadron, Lovenox, vitamin supplements He'll be transferred to the ICU for closer monitoring Follow-up chest x-ray and labs in a.m. We will continue to follow I, the cosigning physician, performed a history & physical examination of the patient. Lungs sounds crackles in the posterior bases. Maintaining O2 saturations in the 90s on AirVo high flow oxygen at 40 L and 90% FiO2 plus a nonrebreather mask. I discussed the assessment and plan of care with my nurse practitioner, Lakeshia Goldstein. I attest to the above note as dictated by her.
[2021-01-13] MEDS: BARICITINIB 2 MG TABLET PO SCH (16:49)
[2021-01-13] MEDS: MELATONIN 3 MG TABLET PO SCH (19:43)
[2021-01-13] MEDS: DEXMEDETOMIDINE/0.9% NACL(PMX) 400 MCG in EMPTY BAG 1 BAG IV SCH (19:43)
[2021-01-14 04:02] LABS: Basophils % (A) 0 %; Eosinophils % (A) 0 %; HCT 43.8 % (39.0-53.0); HGB 14.4 gm/dL (13.0-17.5); Lymphocytes # (A) 0.8 k/uL (1.0-4.8); Lymphocytes % (A) 11 %; MCH 30.4 pg (25.0-35.0); MCHC 32.9 g/dL (31.0-37.0); MCV 92.2 fL (80.0-100.0); Mean Platelet Volume 8.1; Monocytes # (A) 0.3 k/uL (0-1.0); Monocytes % (A) 4 %; Neutrophils # (A) 6.2 k/uL (1.3-7.7); Neutrophils % (A) 83 %; Platelet Count 165 k/uL (150-450); RBC 4.75 m/uL (4.30-5.90); RDW 12.8 % (11.5-15.5); WBC 7.4 k/uL (3.8-10.6)
[2021-01-14 04:13] LABS: ALT 41 U/L (4-49); AST 49 U/L (17-59); African American GFR (CKD) >90 (>60 ml/min/1.73 sqM); Albumin 2.8 g/dL (3.5-5.0); Alkaline Phosphatase 70 U/L (38-126); Anion Gap 5 mmol/L; Blood Urea Nitrogen 24 mg/dL (9-20); C Reactive Protein 5.2 mg/dL (<1.0); Calcium 8.1 mg/dL (8.4-10.2); Carbon Dioxide 23 mmol/L (22-30); Chloride 107 mmol/L (98-107); Glucose 184 mg/dL (74-99); Non-African American GFR(CKD) >90 (>60 ml/min/1.73 sqM); Potassium 4.7 mmol/L (3.5-5.1); Sodium 135 mmol/L (137-145); Total Bilirubin 0.6 mg/dL (0.2-1.3); Total Protein 5.3 g/dL (6.3-8.2)
[2021-01-14 04:19] LABS: LDH 2929 U/L (313-618)
[2021-01-14] MEDS: DEXMEDETOMIDINE/0.9% NACL(PMX) 400 MCG in EMPTY BAG 1 BAG IV SCH (05:37)
[2021-01-14] MEDS: HEPARIN SOD,PORK IN 0.45% NACL 25,000 UNIT in 0.45% NACL 1 250ML.BAG IV SCH ×2 (08:56→21:04)
[2021-01-14] MEDS: CHOLECALCIFEROL 25 MCG (1000 IU) TABLET PO SCH (08:57)
[2021-01-14] MEDS: ZINC SULFATE 220 MG CAP PO SCH (08:57)
[2021-01-14] MEDS: dexAMETHasone 2 MG TAB PO SCH (08:58)
[2021-01-14] MEDS: ASCORBIC ACID 500 MG TAB PO SCH (08:58)
--- NOTE | 2021-01-14 09:07 | XR ---
EXAMINATION TYPE: XR chest 1V portable DATE OF EXAM: 01/14/2021 COMPARISON: Chest x-ray 01/11/2021 HISTORY: Covid pneumonia TECHNIQUE: Single frontal view of the chest is obtained. FINDINGS: Bilateral airspace disease is present. No evident pneumothorax or pleural effusion. Cardia c mediastinal silhouette is stable. Bones are unchanged. There are overlying artifacts. IMPRESSION: Findings consistent with patient's history
[2021-01-14 09:16] LABS: INR 0.9 (<1.2)
[2021-01-14] MEDS ORDERED: propofoL 100 ML IV ONE (09:17)
[2021-01-14] MEDS: SODIUM CHLORIDE 0.9% 1,000 ML IV SCH ×3 (09:47→21:05)
[2021-01-14 09:48] LABS: Partial Thromboplastin Time 21.7 sec (22.0-30.0)
--- NOTE | 2021-01-14 09:59 | P.PN ---
Subjective Progress Note Date: 01/14/21 Principal diagnosis: Coronavirus associated pneumonia. COVID-19 pneumonia 55-year-old male patient of Dr. Palm, with a past medical history of bilateral pulmonary emboli, and left leg DVT, migraine headaches, hiatal hernia, inguinal hernias, osteoarthritis with previous history of right shoulder arthroscopy, cervical fusion, nonsmoker, who came into the emergency department on 01/11/2021 for evaluation of shortness of breath, fatigue, cough, fever. His symptoms started on Thursday01/11/2021 and became progressive. Patient is not vaccinated against COVID-19. Chest x-ray today shows patchy bilateral airspace disease especially in the mid and lower lungs. COVID-19 PCR was negative, his white count is 6.1, hemoglobin is 16.8, platelet count is 128, lymphocyte count is 0.9, d-dimer is 0.82, coagulation profile was within normal limits, sodium is 131, the rest of electrolytes are within normal limits, troponin was less than 0.012, LFTs were within normal limits, lactic acid was 1.1. CT angiogram of the chest showed suboptimal study without central acute pulmonary embolism, and bilateral multifocal and confluent groundglass opacities right greater than left and greater in the lower lungs consistent with history of COVID-19 infection. Pulse ox was 85%, patient was febrile on presentation with a temp of 101.1F, he was placed on 3 L of supplemental oxygen, he is awake and alert, does not appear to be in any acute distress, he is ambulating, and does have exertional dyspnea but no acute distress. He was started on Decadron 10 mg IV push 1, prophyla ctic Lovenox, and multivitamins The patient is seen today 01/12/2021 in follow-up on the regular medical floor. He is currently sitting up in a chair at the bedside. His oxygen requirements to go up. He is currently on a 15 L nonrebreather mask with O2 saturation 91%. He was on 4 L yesterday. He is having more shortness of breath. 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 D-dimer 0.84. LDH 684. C-reactive protein 7.0. He is on day #2 of Remdesivir. He remains on Decadron, Lovenox, vitamin supplements. 0.9 normal saline at 130 ML's per hour. The patient is seen today 01/13/2021 in follow-up on the regular medical floor. He is currently sitting up in a chair at the bedside. Awake and alert. He did have some issues with worsening shortness of breath on minimal exertion. He is on the AirVo high flow oxygen at 4 L and 90% FiO2 plus a nonrebreather mask to maintain O2 saturations in the high 80s and low 90s. He's been afebrile. Hemodynamically stable. White count 8.8. Hemoglobin 13.9. Lymphocytes 0.9. Sodium 137. Potassium 4.1. Creatinine 0.4. He is continued on Baricitinib, Decadron, Lovenox, vitamin supplements. Progress note dated 01/14/2021. This morning, the patient was on BiPAP, with settings of 14/6 and 100%. He change IPAP of 14-16. The patient's getting saline at 130 mL an hour, and Precedex at 0.4 mcg/kg/h. I did speak to the patient about the possibility of intubation and mechanical ventilation. The patient was also placed on IV heparin, given his prior history of DVT and pulmonary embolism. White count 7.4, hemoglobin 14.4, hematocrit 43.8, platelet count 165,000. D-dimer was 12.04. Sodium 135, potassium 4.7, chlorides 107, CO2 23, anion gap 5, BUN 24, and creatinine 0.82. LDH was 2929. C-reactive protein was 5.2. The patient's chest x-ray shows diffuse bilateral infiltrates. This patient was admitted to the hospital on January 11, and moved to the intensive care unit on January 13 for worsening hypoxemic respiratory failure. Objective - Vital Signs Vital signs: Vital Signs Temp 98.2 F 01/14/21 08:00 Pulse 65 01/14/21 08:00 Resp 23 01/14/21 08:00 BP 127/68 01/14/21 08:00 Pulse Ox 82 L 01/14/21 08:00 Intake & Output 01/13/21 01/14/21 01/14/21 18:59 06:59 18:59 Intake Total 453.886 0.825 Output Total 0 1000 Balance 0 -546.114 0.825 Weight 110 kg Intake: Intake, IV Titration 53.886 0.825 Amount Dexmedetomidine/0.9% NaCl 53.886 (Pmx) 400 mcg In Empty Bag 1 bag @ 0.2 MCG/KG/HR 5.443 mls/hr IV .[id number] BRADY Rx#:[id number] propofoL 1,000 mg In 0.825 Empty Bag 1 bag @ Titrate IV .Q0M [facility] Rx#: [id number] Oral 400 Output: Urine 0 1000 Other: Voiding Method Urinal # Voids 500 - Exam No acute distress, oriented 3, BiPAP mask in place. HEENT examination is grossly unremarkable. Neck supple. Full range of motion. No adenopathy thyromegaly or neck vein distention. Cardiovascular examination reveals regular rhythm rate. S1-S2 normal. No S3 or S4. No discernible murmur noted. Heart sounds are distant. Heart rate 65 bpm. Lungs reveal diffuse bilateral coarse rhonchi. Diffuse bilateral crackles. Breath sounds equal bilaterally. Abdomen soft bowel sounds are heard. No masses or tenderness. Extremities are intact. No cyanosis clubbing or edema. Skin is without rash or lesion. Neurologic examination is brief but nonfocal. - Labs CBC & Chem 7: 01/14/21 03:27 01/14/21 03:27 Labs: Abnormal Lab Results - Last 24 Hours (Table) 01/14/21 01/14/21 01/14/21 Range/Units 03:27 03:27 03:27 Lymphocytes # 0.8 L (1.0-4.8) k/uL APTT (22.0-30.0) sec D-Dimer 12.04 H (<0.60) mg/L FEU Sodium 135 L (137-145) mmol/L BUN 24 H (9-20) mg/dL Glucose 184 H (74-99) mg/dL Calcium 8.1 L (8.4-10.2) mg/dL Lactate Dehydrogenase 2929 H (313-618) U/L C-Reactive Protein 5.2 H (<1.0) mg/dL Total Protein 5.3 L (6.3-8.2) g/dL Albumin 2.8 L (3.5-5.0) g/dL 01/14/21 Range/Units 03:27 Lymphocytes # (1.0-4.8) k/uL APTT 21.7 L (22.0-30.0) sec D-Dimer (<0.60) mg/L FEU Sodium (137-145) mmol/L BUN (9-20) mg/dL Glucose (74-99) mg/dL Calcium (8.4-10.2) mg/dL Lactate Dehydrogenase (313-618) U/L C-Reactive Protein (<1.0) mg/dL Total Protein (6.3-8.2) g/dL Albumin (3.5-5.0) g/dL Assessment and Plan Assessment: Acute hypoxemic respiratory failure secondary to coronavirus associated pneumonia. Previous history of bilateral pulmonary emboli, and left leg DVT, 2016. History of osteoarthritis. No prior history of tobacco use. Plan: Plan dated 01/14/2021. Currently, the patient's on appropriate medication. I did tell the patient, that he may require intubation and mechanical ventilation. Currently, he looks so good despite being on BiPAP, the patient will try to ride it out a bit longer. Should he fatigue, or should his saturations drop, we will do an suad ctive intubation and mechanical ventilation. Will likely need an art line and a central line. Labs are reviewed. Prognosis is guarded. We will continue to follow make recommendations where appropriate. Time with Patient: Greater than 30
--- NOTE | 2021-01-14 10:21 | XR ---
EXAMINATION TYPE: XR chest 1V portable DATE OF EXAM: 01/14/2021 Comparison: 01/14/2021, earlier today Clinical History: 55 year-old male tube placement Findings: ET tube tip 3.1 cm from the charity. NG tube courses below the diaphragm. There is worsening bilateral airspace disease, right greater than left, a new obscuration of the heart margins. No appreciable pn eumothorax. Impression: 1. Satisfactory ET and NG tubes. 2. Considerable interval worsening in bilateral diffuse airspace disease, right greater than left. Th e heart margins are now obscured.
[2021-01-14] MEDS: CISATRACURIUM 200 MG in SODIUM CHLORIDE 0.9% 180 ML IV SCH (10:32)
[2021-01-14 10:50] LABS: ABG Base Excess -1.2 mmol/L; ABG HCO3 26 mmol/L (21-25); ABG Oxygen Saturation 67.3 % (94-97); ABG PCO2 57 mmHg (35-45); ABG PH 7.26 (7.35-7.45); ABG TCO2 28 mmol/L (19-24); Allen Test Performed? Yes
[2021-01-14 10:51] LABS: ABG PO2 41 mmHg (83-108)
[2021-01-14] MEDS ORDERED: SODIUM CHLORIDE 0.9% 1,000 ML IV ONE (11:57)
[2021-01-14] MEDS: ARTIFICIAL TEARS-HYPROMELLOSE DROPS 15 ML BTL BOTH EYES SCH ×3 (12:04→20:03)
[2021-01-14] MEDS: DEXAMETHASONE SOD PHOSPHATE 10 MG/ML 1 ML VIAL IVP SCH (12:05)
--- NOTE | 2021-01-14 12:15 | OP ---
OPERATIVE REPORT PULMONARY/CRITICAL CARE PROCEDURE NOTES: PROCEDURE: Right radial arterial line placement. Indications: Hemodynamic monitoring. OPERATORS: 1. Dr. Steen. 2. Dr. Donis. DESCRIPTION: A time-out was completed verifying correct patient, procedure, site, positioning, and implant(s) or special equipment if applicable. Axel's test was performed to ensure adequate perfusion. The patient's right wrist was prepped and draped in sterile fashion. 1% Lidocaine was used to anesthetize the area. An 18G Arrow arterial line was introduced into the radial artery. The catheter was threaded over the guidewire and the needle was removed with appropriate pulsatile blood return. There was good blood return and waveform. Blood loss was minimal. The catheter was then sutured in place to the skin and a sterile dressing applied by the nurse. Perfusion to the extremity distal to the point of catheter insertion was checked and found to be adequate. The patient tolerated the procedure well and there were no immediate complications. PROCEDURE: Left subclavian triple-lumen catheter placement. PREOPERATIVE DIAGNOSES: 1. Administration of fluids and pressors. 2. Blood gases and blood gas monitoring. POSTOPERATIVE DIAGNOSES: 1. Administration of fluids and pressors. 2. Blood gases and blood gas monitoring. OPERATORS: 1. Dr. Steen. 2. Dr. Donis. DESCRIPTION: A time-out was completed verifying correct patient, procedure, site, positioning, and implant(s) or special equipment if applicable. The patient was placed in a dependent position appropriate for triple lumen catheter placement based on the vein to be cannulated. The patient's left shoulder was prepped and draped in sterile fashion. 1% Lidocaine was used to anesthetize the surrounding skin area. A triple-lumen 9F Cordis catheter was introduced into the left subclavian vein using Seldinger technique. The catheter was threaded smoothly over the guidewire and appropriate blood return was obtained. There was good blood return from all 3 ports. Each lumen of the catheter was evacuated of air and flushed with sterile saline. The catheter was then sutured in place to the skin and a sterile dressing was applied by the nurse. Perfusion to the extremity distal to the point of catheter insertion was checked and found to be adequate. The patient tolerated the procedure well. A chest x-ray was ordered to check placement and rule out pneumothorax. There was no immediate complication. MMODL / IJN: [id number] /
--- NOTE | 2021-01-14 12:33 | XR ---
EXAMINATION TYPE: XR chest 1V portable DATE OF EXAM: 01/14/2021 COMPARISON: Chest x-ray dated 01/14/2021 HISTORY: Status post central venous catheter placement TECHNIQUE: Single frontal view of the chest is obtained. FINDINGS: Left subclavian central venous catheters been placed, distal tip is overlying the cavoatri al junction. There is no evident pneumothorax or pleural effusion. Endotracheal tube and NG tube are overlying appropriate positions, there is bilateral airspace disease. IMPRESSION: No evident complication status post central venous catheter placement
[2021-01-14] MEDS: BARICITINIB 2 MG TABLET PO SCH (15:12)
--- NOTE | 2021-01-14 15:41 | P.PN ---
Subjective Progress Note Date: 01/14/21 HISTORY OF PRESENT ILLNESS This is a 55-year-old male patient of Dr. 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 Patient states he has not been feeling well since Thursday. He said shortness of breath cough is nonproductive along with fever and chills, exertional dyspnea. He denies having any nausea vomiting or diarrhea. He denies any close contacts to known Covid people. He states his temperature is been up to 102.7 at home. He is not vaccinated. Patient presented to [facility] emergency center and found to be febrile at 101.1, heart rate 90, blood pressure 122/80, pulse ox 85% on room air. CBC revealed platelet count of 128. D-dimer 0.82. Sodium 131 otherwise electrolytes and renal function were normal. Blood sugar 147. Troponin negative. Coronavirus PCR positive. Chest x-ray reveals patchy bilateral airspace disease especially in the mid and lower lungs. Correlate for multifocal pneumonia including Covid 19 pneumonia. CTA of the chest was suboptimal study without central acute pulmonary embolism. Bilateral multifocal and confluent groundglass opacities right greater than left and greater in the lower lungs consistent with known Covid 19 infection. Patient is seen today in the emergency center waiting for bed on the [facility] floor, started on Remdesivir, Lovenox, dexamethasone and vitamin supplements, consult with pulmonary medicine. 01/12: Patient is comfortable, however he requires 40 L of oxygen via airvo sats 88-89%, he feels better today compared to his nonrebreather mask yesterday, patient did not sleep well, patient does not have any cough, however he does have shortness of breath. Patient denies any aspiration, appetite is still marginal, patient has insomnia vitals, blood sugar currently is 243, creatinine of 0.98, d-dimer is 0.84, CRP is elevated, LDH is elevated, venous Doppler, shows chronic DVT, left popliteal, in the posterior tibial veins, without any obstruction of flow. No acute DVT identified CTA, shows suboptimal, without central acute pulmonary emboli, has bilateral multifocal and confluent groundglass opacities, right greater than left, lower lobe, consistent with COVID-19 infection and remdesivir discontinued by pulmonary today and is outside of the window for remdesivir 01/13: Patient is on aerosol 14 L, with nonrebreather mask, 15 L, hypoxemia n oted on 88%, worse with coughing, however his nonrebreather mask is very loose. Nurse is worriedwith the turn of events, and requested an ICU transfer, Dr. Canales has seen the patient, and is stable for floor management at this time, patient is not significant tachypnea, and is not tiring out. There is no hemoptysis, and mucus is productive, patient's doing incentive spirometry, up 2 L. 01/14: Patient remains in the intensive care unit, he was intubated this morning as he was desaturating with HIDA percent BiPAP. He has been afebrile, heart rate 73, blood pressure 93/47, pulse ox 90%. CBC is unremarkable. D-dimer 12.04. Sodium 135, creatinine 0.82. LDH 2929, C-reactive protein 5.2. Sputum culture is in progress. He has had good urine output. Chest x-ray reveals no evident convocation from catheters. Bilateral airspace disease. REVIEW OF SYSTEMS Unable to obtain due to intubation ASSESSMENT AND PLAN 1. Acute hypoxic respiratory failure secondary to Covid 19 pneumonia non- vaccinated individual. Patient required intubation 01/14. Patient started on Remdesivir was discontinued by pulmonary, on December 2020 started on baricinib 4 mg daily , heparin drip,, dexamethasone 6 mg daily and vitamin supplements, consult with pulmonary medicine. 2. History of bilateral pulmonary emboli and DVT in 2015. CTA negative for PE. Not on chronic anticoagulation, patient started on heparin drip 3. Generalized osteoarthritis. 4. Degenerative changes in the cervical spine status post fusion of C5-6. 5. GI prophylaxis. Protonix. 6. DVT prophylaxis. Lovenox. Patient will be admitted to the hospital for a minimum of 2 night stay. DISCHARGE PLAN Home. vs IP rehab . will expect to stay here for covid protracted length of time Prognosis guarded Impression and plan of care have been directed as dictated by the signing physician. Shakila Mosqueda nurse practitioner acting as scribe for signing physician. Objective - Vital Signs Vital signs: Vital Signs Temp 98.2 F 01/14/21 08:00 Pulse 89 01/14/21 10:20 Resp 26 H 01/14/21 10:20 BP 143/91 01/14/21 10:20 Pulse Ox 60 L 01/14/21 10:20 Intake & Output 01/13/21 01/14/21 01/14/21 18:59 06:59 18:59 Intake Total 453.886 42.066 Output Total 0 1000 Balance 0 -546.114 42.066 Weight 110 kg Intake: Intake, IV Titration 53.886 42.066 Amount Dexmedetomidine/0.9% NaCl 53.886 25.401 (Pmx) 400 mcg In Empty Bag 1 bag @ 0.2 MCG/KG/HR 5.443 mls/hr IV .[id number] [facility] Rx#:[id number] propofoL 1,000 mg In 16.665 Empty Bag 1 bag @ Titrate IV .Q0M [facility] Rx#: [id number] Oral 400 Output: Urine 0 1000 Other: Voiding Method Urinal # Voids 500 - Labs CBC & Chem 7: 01/14/21 03:27 01/14/21 03:27 Labs: Abnormal Lab Results - Last 24 Hours (Table) 01/14/21 01/14/21 01/14/21 Range/Units 03:27 03:27 03:27 Lymphocytes # 0.8 L (1.0-4.8) k/uL APTT (22.0-30.0) sec D-Dimer 12.04 H (<0.60) mg/L FEU Sodium 135 L (137-145) mmol/L BUN 24 H (9-20) mg/dL Glucose 184 H (74-99) mg/dL Calcium 8.1 L (8.4-10.2) mg/dL Lactate Dehydrogenase 2929 H (313-618) U/L C-Reactive Protein 5.2 H (<1.0) mg/dL Total Protein 5.3 L (6.3-8.2) g/dL Albumin 2.8 L (3.5-5.0) g/dL 01/14/21 Range/Units 03:27 Lymphocytes # (1.0-4.8) k/uL APTT 21.7 L (22.0-30.0) sec D-Dimer (<0.60) mg/L FEU Sodium (137-145) mmol/L BUN (9-20) mg/dL Glucose (74-99) mg/dL Calcium (8.4-10.2) mg/dL Lactate Dehydrogenase (313-618) U/L C-Reactive Protein (<1.0) mg/dL Total Protein (6.3-8.2) g/dL Albumin (3.5-5.0) g/dL
[2021-01-14 17:29] LABS: Glucose,Whole Blood 179 mg/dL (75-99)
[2021-01-14] MEDS: INSULIN ASPART (NovoLOG) 100 UNIT/ML VIAL SQ SCH ×2 (19:40→19:41)
[2021-01-14] MEDS: CHLORHEXIDINE GLUCONATE 15 ML CUP MUCOUS MEM SCH (21:06)
[2021-01-14] MEDS: NOREPINEPHRINE 8 MG in SODIUM CHLORIDE 0.9% 250 ML IV SCH (23:30)
[2021-01-14 23:52] LABS: Glucose,Whole Blood 200 mg/dL (75-99)
[2021-01-15] MEDS: INSULIN ASPART (NovoLOG) 100 UNIT/ML VIAL SQ SCH ×4 (00:04→18:34)
[2021-01-15] MEDS: ARTIFICIAL TEARS-HYPROMELLOSE DROPS 15 ML BTL BOTH EYES SCH ×6 (00:05→20:44)
[2021-01-15] MEDS: CISATRACURIUM 200 MG in SODIUM CHLORIDE 0.9% 180 ML IV SCH (03:53)
[2021-01-15 04:51] LABS: Basophils % (A) 0 %; Eosinophils % (A) 0 %; HCT 42.3 % (39.0-53.0); HGB 13.4 gm/dL (13.0-17.5); Lymphocytes # (A) 0.6 k/uL (1.0-4.8); Lymphocytes % (A) 7 %; MCH 29.8 pg (25.0-35.0); MCHC 31.7 g/dL (31.0-37.0); MCV 94.1 fL (80.0-100.0); Mean Platelet Volume 7.9; Monocytes # (A) 0.4 k/uL (0-1.0); Monocytes % (A) 5 %; Neutrophils # (A) 8.2 k/uL (1.3-7.7); Neutrophils % (A) 87 %; Platelet Count 205 k/uL (150-450); RDW 13.1 % (11.5-15.5); WBC 9.5 k/uL (3.8-10.6)
[2021-01-15 05:54] LABS: Glucose,Whole Blood 195 mg/dL (75-99)
[2021-01-15 06:04] LABS: ALT 183 U/L (4-49); AST 126 U/L (17-59); African American GFR (CKD) >90 (>60 ml/min/1.73 sqM); Albumin 2.7 g/dL (3.5-5.0); Alkaline Phosphatase 109 U/L (38-126); Anion Gap 4 mmol/L; Blood Urea Nitrogen 20 mg/dL (9-20); Calcium 7.9 mg/dL (8.4-10.2); Carbon Dioxide 25 mmol/L (22-30); Chloride 111 mmol/L (98-107); Glucose 215 mg/dL (74-99); Non-African American GFR(CKD) >90 (>60 ml/min/1.73 sqM); Potassium 4.9 mmol/L (3.5-5.1); Sodium 140 mmol/L (137-145); Total Bilirubin 0.5 mg/dL (0.2-1.3); Total Protein 5.4 g/dL (6.3-8.2)
[2021-01-15] MEDS: SODIUM CHLORIDE 0.9% 1,000 ML IV SCH ×3 (06:20→20:44)
[2021-01-15 06:29] LABS: Allen Test Performed? Yes
[2021-01-15 06:37] LABS: ABG HCO3 24 mmol/L (21-25); ABG PCO2 58 mmHg (35-45); ABG PH 7.24 (7.35-7.45); ABG PO2 129 mmHg (83-108)
[2021-01-15 06:38] LABS: ABG Base Excess -3.6 mmol/L; ABG TCO2 18 mmol/L (19-24)
--- NOTE | 2021-01-15 08:09 | XR ---
EXAMINATION TYPE: XR chest 1V portable DATE OF EXAM: 01/15/2021 COMPARISON: Chest x-ray 01/14/2021 HISTORY: Intubated TECHNIQUE: Single frontal view of the chest is obtained. FINDINGS: Endotracheal tube and NG tube, left subclavian central venous catheter are overlying appro priate positions. There are overlying artifacts. There is no evident pneumothorax or pleural effusion . Bilateral airspace disease is again seen. Cardiac mediastinal silhouette is stable. Lung volumes ar e low. IMPRESSION: Correlate for pneumonia versus edema, ARDS
[2021-01-15] MEDS: CHOLECALCIFEROL 25 MCG (1000 IU) TABLET PO SCH (08:32)
[2021-01-15] MEDS: ASCORBIC ACID 500 MG TAB PO SCH (08:32)
[2021-01-15] MEDS: CHLORHEXIDINE GLUCONATE 15 ML CUP MUCOUS MEM SCH ×2 (08:32→20:44)
[2021-01-15] MEDS: ZINC SULFATE 220 MG CAP PO SCH (08:33)
[2021-01-15] MEDS: DEXAMETHASONE SOD PHOSPHATE 10 MG/ML 1 ML VIAL IVP SCH (08:34)
[2021-01-15] MEDS: HYDROmorphone 1 MG/ML 1 ML SYRINGE IVP PRN ×3 (08:57→18:05)
[2021-01-15] MEDS: HEPARIN SOD,PORK IN 0.45% NACL 25,000 UNIT in 0.45% NACL 1 250ML.BAG IV SCH (11:21)
[2021-01-15] MEDS: BARICITINIB 2 MG TABLET PO SCH (11:22)
--- NOTE | 2021-01-15 11:29 | P.PN ---
Subjective Progress Note Date: 01/15/21 Principal diagnosis: Coronavirus associated pneumonia. COVID-19 pneumonia 55-year-old male patient of Dr. Palm, with a past medical history of bilateral pulmonary emboli, and left leg DVT, migraine headaches, hiatal hernia, inguinal hernias, osteoarthritis with previous history of right shoulder arthroscopy, cervical fusion, nonsmoker, who came into the emergency department on 01/11/2021 for evaluation of shortness of breath, fatigue, cough, fever. His symptoms started on Thursday01/11/2021 and became progressive. Patient is not vaccinated against COVID-19. Chest x-ray today shows patchy bilateral airspace disease especially in the mid and lower lungs. COVID-19 PCR was negative, his white count is 6.1, hemoglobin is 16.8, platelet count is 128, lymphocyte count is 0.9, d-dimer is 0.82, coagulation profile was within normal limits, sodium is 131, the rest of electrolytes are within normal limits, troponin was less than 0.012, LFTs were within normal limits, lactic acid was 1.1. CT angiogram of the chest showed suboptimal study without central acute pulmonary embolism, and bilateral multifocal and confluent groundglass opacities right greater than left and greater in the lower lungs consistent with history of COVID-19 infection. Pulse ox was 85%, patient was febrile on presentation with a temp of 101.1F, he was placed on 3 L of supplemental oxygen, he is awake and alert, does not appear to be in any acute distress, he is ambulating, and does have exertional dyspnea but no acute distress. He was started on Decadron 10 mg IV push 1, prophyla ctic Lovenox, and multivitamins The patient is seen today 01/12/2021 in follow-up on the regular medical floor. He is currently sitting up in a chair at the bedside. His oxygen requirements to go up. He is currently on a 15 L nonrebreather mask with O2 saturation 91%. He was on 4 L yesterday. He is having more shortness of breath. 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 D-dimer 0.84. LDH 684. C-reactive protein 7.0. He is on day #2 of Remdesivir. He remains on Decadron, Lovenox, vitamin supplements. 0.9 normal saline at 130 ML's per hour. The patient is seen today 01/13/2021 in follow-up on the regular medical floor. He is currently sitting up in a chair at the bedside. Awake and alert. He did have some issues with worsening shortness of breath on minimal exertion. He is on the AirVo high flow oxygen at 4 L and 90% FiO2 plus a nonrebreather mask to maintain O2 saturations in the high 80s and low 90s. He's been afebrile. Hemodynamically stable. White count 8.8. Hemoglobin 13.9. Lymphocytes 0.9. Sodium 137. Potassium 4.1. Creatinine 0.4. He is continued on Baricitinib, Decadron, Lovenox, vitamin supplements. Progress note dated 01/14/2021. This morning, the patient was on BiPAP, with settings of 14/6 and 100%. He change IPAP of 14-16. The patient's getting saline at 130 mL an hour, and Precedex at 0.4 mcg/kg/h. I did speak to the patient about the possibility of intubation and mechanical ventilation. The patient was also placed on IV heparin, given his prior history of DVT and pulmonary embolism. White count 7.4, hemoglobin 14.4, hematocrit 43.8, platelet count 165,000. D-dimer was 12.04. Sodium 135, potassium 4.7, chlorides 107, CO2 23, anion gap 5, BUN 24, and creatinine 0.82. LDH was 2929. C-reactive protein was 5.2. The patient's chest x-ray shows diffuse bilateral infiltrates. This patient was admitted to the hospital on January 11, and moved to the intensive care unit on January 13 for worsening hypoxemic respiratory failure. Progress note dated 01/15/2021. Yesterday, the patient was intubated and mechanically ventilated, after developing worsening hypoxemic respiratory failure. A central line was placed, as well as an art line. The patient remains on mechanical ventilator. Currently, he's on the volume assist control mode, rate 26, tidal volume 450, FiO2 100%, and PEEP of 15. Arterial blood gases show a PaO2 of 129, pCO2 58, and a pH is 7.24. With that, the rate is increased to 30 breaths per minute, and the FiO2 was reduced down to 80%. The patient remains on propofol, at 50 mcg/kg/m, Nimbex, at 2 mcg/kg/m, and norepinephrine at 0.03 mcg/kg/m. The patient's also getting saline at 130 mL an hour, IV heparin, and vital, at 23 mL an hour, which is goal. White count 9.5, hemoglobin 13.4, hematocrit 42.3, and platelet count 205,000. PTT is 119. Sodium 140, potassium 4.9, chlorides 111, CO2 25, anion gap 4, BUN 20, creatinine 0.88. The patient's albumin was 2.7. AST was 126 with an ALT of 183. The patient's chest x-ray is consistent with d iffuse bilateral infiltrates, consistent with coronavirus associated pneumonia, and acute respiratory distress syndrome. Objective - Vital Signs Vital signs: Vital Signs Temp 99.0 F 01/15/21 08:00 Pulse 56 L 01/15/21 10:15 Resp 20 01/15/21 10:15 BP 105/71 01/15/21 10:15 Pulse Ox 96 01/15/21 10:15 Intake & Output 01/14/21 01/15/21 01/15/21 18:59 06:59 18:59 Intake Total 3580.266 2825.47 787.09 Output Total 975 2170 560 Balance 2605.266 655.47 227.09 Weight 110 kg 111.5 kg Intake: IV 1170 1690 520 Sodium Chloride 0.9% 1, 1170 1690 520 000 ml @ 130 mls/hr IV . Q7H42M [facility] Rx#:[id number] Intake, IV Titration 2288.266 769.47 145.09 Amount Cisatracurium 200 mg In 166.54 65.34 Sodium Chloride 0.9% 180 ml @ 1 MCG/KG/MIN 6.6 mls /hr IV .Q24H [facility] Rx#: [id number] Dexmedetomidine/0.9% NaCl 25.401 (Pmx) 400 mcg In Empty Bag 1 bag @ 0.2 MCG/KG/HR 5.443 mls/hr IV .[id number] [facility] Rx#:[id number] Heparin Sod,Pork in 0.45% 402.93 NaCl 25,000 unit In 0.45 % NaCl 1 250ml.bag @ 18 UNITS/KG/HR 19.8 mls/hr IV .[id number] [facility] Rx#: [id number] Sodium Chloride 0.9% 1, 2000 000 ml @ 999 mls/hr IV . Q1H1M [facility] Rx#:[id number] propofoL 1,000 mg In 262.865 200 79.75 Empty Bag 1 bag @ Titrate IV .Q0M [facility] Rx#: [id number] Tube Feeding 92 276 92 Other 30 90 30 Output: Urine 975 2170 560 Other: Voiding Method Indwelling Catheter Indwelling Catheter Indwelling Catheter ABP, PAP, CO, CI - Last Documented Arterial Blood Pressure 126/55 - Exam No acute distress, sedated and paralyzed, with an orally placed endotracheal tube and NG tube. HEENT examination is grossly unremarkable. Neck supple. Full range of motion. No adenopathy thyromegaly or neck vein distention. Cardiovascular examination reveals regular rhythm rate. S1-S2 normal. No S3 or S4. No discernible murmur noted. Heart sounds are distant. Heart rate 56 bpm. Lungs reveal diffuse bilateral coarse rhonchi. Diffuse bilateral crackles. Breath sounds equal bilaterally. Abdomen soft bowel sounds are heard. No masses or tenderness. Extremities are intact. No cyanosis clubbing or edema. Skin is without rash or lesion. Neurologic examination cannot be adequately assessed given the fact the patient is sedated and paralyzed. - Labs CBC & Chem 7: 01/15/21 04:35 01/15/21 04:35 Labs: Abnormal Lab Results - Last 24 Hours (Table) 01/14/21 01/14/21 01/14/21 Range/Units 15:14 17:27 23:51 Neutrophils # (1.3-7.7) k/uL Lymphocytes # (1.0-4.8) k/uL APTT 58.7 H (22.0-30.0) sec ABG pH (7.35-7.45) ABG pCO2 (35-45) mmHg ABG pO2 (83-108) mmHg ABG Total CO2 (19-24) mmol/L ABG O2 Saturation (94-97) % Chloride (98-107) mmol/L Glucose (74-99) mg/dL POC Glucose (mg/dL) 179 H 200 H (75-99) mg/dL Calcium (8.4-10.2) mg/dL AST (17-59) U/L ALT (4-49) U/L Total Protein (6.3-8.2) g/dL Albumin (3.5-5.0) g/dL 01/15/21 01/15/21 01/15/21 Range/Units 04:35 04:35 04:35 Neutrophils # 8.2 H (1.3-7.7) k/uL Lymphocytes # 0.6 L (1.0-4.8) k/uL APTT 119.0 H* (22.0-30.0) sec ABG pH (7.35-7.45) ABG pCO2 (35-45) mmHg ABG pO2 (83-108) mmHg ABG Total CO2 (19-24) mmol/L ABG O2 Saturation (94-97) % Chloride 111 H (98-107) mmol/L Glucose 215 H (74-99) mg/dL POC Glucose (mg/dL) (75-99) mg/dL Calcium 7.9 L (8.4-10.2) mg/dL AST 126 H (17-59) U/L ALT 183 H (4-49) U/L Total Protein 5.4 L (6.3-8.2) g/dL Albumin 2.7 L (3.5-5.0) g/dL 01/15/21 01/15/21 Range/Units 05:53 06:20 Neutrophils # (1.3-7.7) k/uL Lymphocytes # (1.0-4.8) k/uL APTT (22.0-30.0) sec ABG pH 7.24 L (7.35-7.45) ABG pCO2 58 H (35-45) mmHg ABG pO2 129 H (83-108) mmHg ABG Total CO2 18 L (19-24) mmol/L ABG O2 Saturation 99.0 H (94-97) % Chloride (98-107) mmol/L Glucose (74-99) mg/dL POC Glucose (mg/dL) 195 H (75-99) mg/dL Calcium (8.4-10.2) mg/dL AST (17-59) U/L ALT (4-49) U/L Total Protein (6.3-8.2) g/dL Albumin (3.5-5.0) g/dL Microbiology - Last 24 Hours (Table) 01/14/21 09:40 Gram Stain - Preliminary Sputum Sputum Culture - Preliminary Assessment and Plan Assessment: Acute hypoxemic respiratory failure secondary to coronavirus associated pneumonia, with intubation and mechanical ventilation, initiated on January 14, for worsening hypoxemia. Acute respiratory distress syndrome, secondary to coronavirus associated pneumonia. Previous history of bilateral pulmonary emboli, and left leg DVT, 2016, currently on IV heparin empirically. History of osteoarthritis. No prior history of tobacco use. Plan: Plan dated 01/14/2021. Currently, the patient's on appropriate medication. I did tell the patient, that he may require intubation and mechanical ventilation. Currently, he looks so good despite being on BiPAP, the patient will try to ride it out a bit longer. Should he fatigue, or should his saturations drop, we will do an elective intubation and mechanical ventilation. Will likely need an art line and a central line. Labs are reviewed. Prognosis is guarded. We will continue to follow make recommendations where appropriate. Plan dated 01/15/2021. Yesterday, the patient developed worsening hypoxemic respiratory failure, and was intubated. The patient remains on vitamin C, vitamin D3, and zinc. In addition, the patient is being sedated with, and paralyzed with Nimbex. The patient is getting Dilaudid when necessary. The patient remains on IV heparin, and Decadron. The patient is also getting BASHIR. Obviously, the patient is very critically ill, and we will continue to follow the patient and make recommendations were appropriate. Prognosis is guarded. Time with Patient: Greater than 30
[2021-01-15 11:35] LABS: Glucose,Whole Blood 200 mg/dL (75-99)
--- NOTE | 2021-01-15 12:56 | P.PN ---
Subjective Progress Note Date: 01/15/21 HISTORY OF PRESENT ILLNESS This is a 55-year-old male patient of Dr. 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 Patient states he has not been feeling well since Thursday. He said shortness of breath cough is nonproductive along with fever and chills, exertional dyspnea. He denies having any nausea vomiting or diarrhea. He denies any close contacts to known Covid people. He states his temperature is been up to 102.7 at home. He is not vaccinated. Patient presented to [facility] emergency center and found to be febrile at 101.1, heart rate 90, blood pressure 122/80, pulse ox 85% on room air. CBC revealed platelet count of 128. D-dimer 0.82. Sodium 131 otherwise electrolytes and renal function were normal. Blood sugar 147. Troponin negative. Coronavirus PCR positive. Chest x-ray reveals patchy bilateral airspace disease especially in the mid and lower lungs. Correlate for multifocal pneumonia including Covid 19 pneumonia. CTA of the chest was suboptimal study without central acute pulmonary embolism. Bilateral multifocal and confluent groundglass opacities right greater than left and greater in the lower lungs consistent with known Covid 19 infection. Patient is seen today in the emergency center waiting for bed on the [facility] floor, started on Remdesivir, Lovenox, dexamethasone and vitamin supplements, consult with pulmonary medicine. 01/12: Patient is comfortable, however he requires 40 L of oxygen via airvo sats 88-89%, he feels better today compared to his nonrebreather mask yesterday, patient did not sleep well, patient does not have any cough, however he does have shortness of breath. Patient denies any aspiration, appetite is still marginal, patient has insomnia vitals, blood sugar currently is 243, creatinine of 0.98, d-dimer is 0.84, CRP is elevated, LDH is elevated, venous Doppler, shows chronic DVT, left popliteal, in the posterior tibial veins, without any obstruction of flow. No acute DVT identified CTA, shows suboptimal, without central acute pulmonary emboli, has bilateral multifocal and confluent groundglass opacities, right greater than left, lower lobe, consistent with COVID-19 infection and remdesivir discontinued by pulmonary today and is outside of the window for remdesivir 01/13: Patient is on aerosol 14 L, with nonrebreather mask, 15 L, hypoxemia n oted on 88%, worse with coughing, however his nonrebreather mask is very loose. Nurse is worriedwith the turn of events, and requested an ICU transfer, Dr. Canales has seen the patient, and is stable for floor management at this time, patient is not significant tachypnea, and is not tiring out. There is no hemoptysis, and mucus is productive, patient's doing incentive spirometry, up 2 L. 01/14: Patient remains in the intensive care unit, he was intubated this morning as he was desaturating with BiPAP. He has been afebrile, heart rate 73, blood pressure 93/47, pulse ox 90%. CBC is unremarkable. D-dimer 12.04. Sodium 135, creatinine 0.82. LDH 2929, C-reactive protein 5.2. Sputum culture is in progress. He has had good urine output. Chest x-ray reveals no evident convocation from catheters. Bilateral airspace disease. 01/15: Patient remains in the intensive care intubated and on mechanical ventilation with tidal volume 450, FiO2 80, PEEP of 15. Patient has been started on norepinephrine and remains on propofol, heparin drip, Nimbex. Repeat blood work revealed unremarkable CBC. Creatinine 0.88. Capillary blood glucose running between 195 and 215. AST 126, ALT 183, alkaline phosphatase 109. Sputum culture is in progress. Repeat chest x-ray reveals correlate for pneumonia versus edema, ARDS. Patient is continued on vitamin supplements, heparin drip, dexamethasone and Baricitinib. REVIEW OF SYSTEMS Unable to obtain due to intubation PHYSICAL EXAMINATION Gen: This is a 55-year-old male. He is resting in ICU bed, intubated and on mechanical ventilation, appears to be comfortable. Full examination deferred to the intensive is due to intubation and Covid 19. ASSESSMENT AND PLAN 1. Acute hypoxic respiratory failure secondary to Covid 19 pneumonia non- vaccinated individual. Patient required intubation 01/14. Patient started on Remdesivir was discontinued by pulmonary, on January 12 started on baricinib 4 mg daily , heparin drip, dexamethasone 6 mg daily and vitamin supplements, consult with pulmonary medicine. 2. History of bilateral pulmonary emboli and DVT in 2015. CTA negative for PE. Not on chronic anticoagulation, patient started on heparin drip 3. Generalized osteoarthritis. 4. Degenerative changes in the cervical spine status post fusion of C5-6. 5. GI prophylaxis. Protonix. 6. DVT prophylaxis. Lovenox. DISCHARGE PLAN Home. vs IP rehab . will expect to stay here for covid protracted length of time Prognosis guarded Impression and plan of care have been directed as dictated by the signing physician. Shakila Mosqueda nurse practitioner acting as scribe for signing physician. Objective - Vital Signs Vital signs: Vital Signs Temp 99.0 F 01/15/21 08:00 Pulse 56 L 01/15/21 10:15 Resp 20 01/15/21 10:15 BP 105/71 01/15/21 10:15 Pulse Ox 96 01/15/21 10:15 Intake & Output 01/14/21 01/15/21 01/15/21 18:59 06:59 18:59 Intake Total 3580.266 2825.47 634.09 Output Total 975 2170 460 Balance 2605.266 655.47 174.09 Weight 110 kg 111.5 kg Intake: IV 1170 1690 390 Sodium Chloride 0.9% 1, 1170 1690 390 000 ml @ 130 mls/hr IV . Q7H42M [facility] Rx#:[id number] Intake, IV Titration 2288.266 769.47 145.09 Amount Cisatracurium 200 mg In 166.54 65.34 Sodium Chloride 0.9% 180 ml @ 1 MCG/KG/MIN 6.6 mls /hr IV .Q24H [facility] Rx#: [id number] Dexmedetomidine/0.9% NaCl 25.401 (Pmx) 400 mcg In Empty Bag 1 bag @ 0.2 MCG/KG/HR 5.443 mls/hr IV .[id number] [facility] Rx#:[id number] Heparin Sod,Pork in 0.45% 402.93 NaCl 25,000 unit In 0.45 % NaCl 1 250ml.bag @ 18 UNITS/KG/HR 19.8 mls/hr IV .[id number] [facility] Rx#: [id number] Sodium Chloride 0.9% 1, 2000 000 ml @ 999 mls/hr IV . Q1H1M [facility] Rx#:[id number] propofoL 1,000 mg In 262.865 200 79.75 Empty Bag 1 bag @ Titrate IV .Q0M [facility] Rx#: [id number] Tube Feeding 92 276 69 Other 30 90 30 Output: Urine 975 2170 460 Other: Voiding Method Indwelling Catheter Indwelling Catheter Indwelling Catheter ABP, PAP, CO, CI - Last Documented Arterial Blood Pressure 126/55 - Labs CBC & Chem 7: 01/15/21 04:35 01/15/21 04:35 Labs: Abnormal Lab Results - Last 24 Hours (Table) 01/14/21 01/14/21 01/14/21 Range/Units 15:14 17:27 23:51 Neutrophils # (1.3-7.7) k/uL Lymphocytes # (1.0-4.8) k/uL APTT 58.7 H (22.0-30.0) sec ABG pH (7.35-7.45) ABG pCO2 (35-45) mmHg ABG pO2 (83-108) mmHg ABG Total CO2 (19-24) mmol/L ABG O2 Saturation (94-97) % Chloride (98-107) mmol/L Glucose (74-99) mg/dL POC Glucose (mg/dL) 179 H 200 H (75-99) mg/dL Calcium (8.4-10.2) mg/dL AST (17-59) U/L ALT (4-49) U/L Total Protein (6.3-8.2) g/dL Albumin (3.5-5.0) g/dL 01/15/21 01/15/21 01/15/21 Range/Units 04:35 04:35 04:35 Neutrophils # 8.2 H (1.3-7.7) k/uL Lymphocytes # 0.6 L (1.0-4.8) k/uL APTT 119.0 H* (22.0-30.0) sec ABG pH (7.35-7.45) ABG pCO2 (35-45) mmHg ABG pO2 (83-108) mmHg ABG Total CO2 (19-24) mmol/L ABG O2 Saturation (94-97) % Chloride 111 H (98-107) mmol/L Glucose 215 H (74-99) mg/dL POC Glucose (mg/dL) (75-99) mg/dL Calcium 7.9 L (8.4-10.2) mg/dL AST 126 H (17-59) U/L ALT 183 H (4-49) U/L Total Protein 5.4 L (6.3-8.2) g/dL Albumin 2.7 L (3.5-5.0) g/dL 01/15/21 01/15/21 Range/Units 05:53 06:20 Neutrophils # (1.3-7.7) k/uL Lymphocytes # (1.0-4.8) k/uL APTT (22.0-30.0) sec ABG pH 7.24 L (7.35-7.45) ABG pCO2 58 H (35-45) mmHg ABG pO2 129 H (83-108) mmHg ABG Total CO2 18 L (19-24) mmol/L ABG O2 Saturation 99.0 H (94-97) % Chloride (98-107) mmol/L Glucose (74-99) mg/dL POC Glucose (mg/dL) 195 H (75-99) mg/dL Calcium (8.4-10.2) mg/dL AST (17-59) U/L ALT (4-49) U/L Total Protein (6.3-8.2) g/dL Albumin (3.5-5.0) g/dL Microbiology - Last 24 Hours (Table) 01/14/21 09:40 Gram Stain - Preliminary Sputum Sputum Culture - Preliminary
[2021-01-15 18:16] LABS: Glucose,Whole Blood 233 mg/dL (75-99)
[2021-01-15 23:54] LABS: Glucose,Whole Blood 191 mg/dL (75-99)
[2021-01-16 01:01] LABS: Glucose,Whole Blood 184 mg/dL (75-99)
[2021-01-16] MEDS: ARTIFICIAL TEARS-HYPROMELLOSE DROPS 15 ML BTL BOTH EYES SCH ×6 (01:01→20:23)
[2021-01-16] MEDS: CISATRACURIUM 200 MG in SODIUM CHLORIDE 0.9% 180 ML IV SCH ×2 (01:02→21:32)
[2021-01-16] MEDS: INSULIN ASPART (NovoLOG) 100 UNIT/ML VIAL SQ SCH ×4 (01:04→17:43)
[2021-01-16] MEDS: HYDROmorphone 1 MG/ML 1 ML SYRINGE IVP PRN ×3 (01:49→21:31)
[2021-01-16 05:05] LABS: Glucose,Whole Blood 145 mg/dL (75-99)
[2021-01-16] MEDS: HEPARIN SOD,PORK IN 0.45% NACL 25,000 UNIT in 0.45% NACL 1 250ML.BAG IV SCH ×3 (05:16→19:15)
[2021-01-16 05:17] LABS: Basophils % (A) 0 %; Eosinophils # (A) 0.1 k/uL (0-0.7); Eosinophils % (A) 1 %; HCT 38.5 % (39.0-53.0); HGB 12.4 gm/dL (13.0-17.5); Lymphocytes # (A) 0.9 k/uL (1.0-4.8); Lymphocytes % (A) 10 %; MCH 30.1 pg (25.0-35.0); MCHC 32.3 g/dL (31.0-37.0); MCV 93.3 fL (80.0-100.0); Mean Platelet Volume 8.5; Monocytes # (A) 0.3 k/uL (0-1.0); Monocytes % (A) 3 %; Neutrophils % (A) 85 %; Platelet Count 199 k/uL (150-450); RBC 4.13 m/uL (4.30-5.90); RDW 13.1 % (11.5-15.5); WBC 9.5 k/uL (3.8-10.6)
[2021-01-16 06:06] LABS: ABG Base Excess 1.4 mmol/L; ABG HCO3 26 mmol/L (21-25); ABG Oxygen Saturation 88.6 % (94-97); ABG PCO2 43 mmHg (35-45); ABG TCO2 28 mmol/L (19-24); Allen Test Performed? Yes
[2021-01-16 06:12] LABS: ABG PO2 53 mmHg (83-108)
[2021-01-16] MEDS: HEPARIN SODIUM 1,000 UN/ML (10ML VL) IV PRN (06:45)
[2021-01-16] MEDS: SODIUM CHLORIDE 0.9% 1,000 ML IV SCH ×2 (06:50→15:11)
[2021-01-16] MEDS: NOREPINEPHRINE 8 MG in SODIUM CHLORIDE 0.9% 250 ML IV SCH (06:51)
[2021-01-16] MEDS ORDERED: FUROSEMIDE 10 MG/ML 4 ML VIAL IV STA (08:14)
[2021-01-16] MEDS: LACTULOSE 20 GM/30 ML CUP PO SCH ×3 (08:36→20:57)
[2021-01-16] MEDS: ASCORBIC ACID 500 MG TAB PO SCH (08:37)
[2021-01-16] MEDS: CHLORHEXIDINE GLUCONATE 15 ML CUP MUCOUS MEM SCH ×2 (08:37→20:23)
[2021-01-16] MEDS: CHOLECALCIFEROL 25 MCG (1000 IU) TABLET PO SCH (08:38)
[2021-01-16] MEDS: ZINC SULFATE 220 MG CAP PO SCH (08:39)
[2021-01-16] MEDS: DEXAMETHASONE SOD PHOSPHATE 10 MG/ML 1 ML VIAL IVP SCH (08:39)
--- NOTE | 2021-01-16 09:21 | XR ---
EXAMINATION TYPE: XR chest 1V portable DATE OF EXAM: 01/16/2021 COMPARISON: Chest x-ray 01/15/2021 HISTORY: Intubated TECHNIQUE: Single frontal view of the chest is obtained. FINDINGS: Endotracheal tube is overlying the level of approximately C7-T1. Left subclavian central v enous catheter shows the distal tip near the cavoatrial junction. There are overlying artifacts. No e vident pneumothorax. Lung volumes are low and the patient is rotated. Cardiac mediastinal silhouette is stable. Airspace disease is present bilaterally. IMPRESSION: Endotracheal tube as described. Correlate for pneumonia, ARDS, congestive heart failure . Endotracheal tube as described.
[2021-01-16] MEDS: ACETAMINOPHEN TAB 325 MG TAB PO PRN (09:46)
--- NOTE | 2021-01-16 12:12 | P.PN ---
Subjective Progress Note Date: 01/16/21 Principal diagnosis: Coronavirus associated pneumonia. COVID-19 pneumonia 55-year-old male patient of Dr. Palm, with a past medical history of bilateral pulmonary emboli, and left leg DVT, migraine headaches, hiatal hernia, inguinal hernias, osteoarthritis with previous history of right shoulder arthroscopy, cervical fusion, nonsmoker, who came into the emergency department on 01/11/2021 for evaluation of shortness of breath, fatigue, cough, fever. His symptoms started on Thursday01/11/2021 and became progressive. Patient is not vaccinated against COVID-19. Chest x-ray today shows patchy bilateral airspace disease especially in the mid and lower lungs. COVID-19 PCR was negative, his white count is 6.1, hemoglobin is 16.8, platelet count is 128, lymphocyte count is 0.9, d-dimer is 0.82, coagulation profile was within normal limits, sodium is 131, the rest of electrolytes are within normal limits, troponin was less than 0.012, LFTs were within normal limits, lactic acid was 1.1. CT angiogram of the chest showed suboptimal study without central acute pulmonary embolism, and bilateral multifocal and confluent groundglass opacities right greater than left and greater in the lower lungs consistent with history of COVID-19 infection. Pulse ox was 85%, patient was febrile on presentation with a temp of 101.1F, he was placed on 3 L of supplemental oxygen, he is awake and alert, does not appear to be in any acute distress, he is ambulating, and does have exertional dyspnea but no acute distress. He was started on Decadron 10 mg IV push 1, prophyla ctic Lovenox, and multivitamins The patient is seen today 01/12/2021 in follow-up on the regular medical floor. He is currently sitting up in a chair at the bedside. His oxygen requirements to go up. He is currently on a 15 L nonrebreather mask with O2 saturation 91%. He was on 4 L yesterday. He is having more shortness of breath. 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 D-dimer 0.84. LDH 684. C-reactive protein 7.0. He is on day #2 of Remdesivir. He remains on Decadron, Lovenox, vitamin supplements. 0.9 normal saline at 130 ML's per hour. The patient is seen today 01/13/2021 in follow-up on the regular medical floor. He is currently sitting up in a chair at the bedside. Awake and alert. He did have some issues with worsening shortness of breath on minimal exertion. He is on the AirVo high flow oxygen at 4 L and 90% FiO2 plus a nonrebreather mask to maintain O2 saturations in the high 80s and low 90s. He's been afebrile. Hemodynamically stable. White count 8.8. Hemoglobin 13.9. Lymphocytes 0.9. Sodium 137. Potassium 4.1. Creatinine 0.4. He is continued on Baricitinib, Decadron, Lovenox, vitamin supplements. Progress note dated 01/14/2021. This morning, the patient was on BiPAP, with settings of 14/6 and 100%. He change IPAP of 14-16. The patient's getting saline at 130 mL an hour, and Precedex at 0.4 mcg/kg/h. I did speak to the patient about the possibility of intubation and mechanical ventilation. The patient was also placed on IV heparin, given his prior history of DVT and pulmonary embolism. White count 7.4, hemoglobin 14.4, hematocrit 43.8, platelet count 165,000. D-dimer was 12.04. Sodium 135, potassium 4.7, chlorides 107, CO2 23, anion gap 5, BUN 24, and creatinine 0.82. LDH was 2929. C-reactive protein was 5.2. The patient's chest x-ray shows diffuse bilateral infiltrates. This patient was admitted to the hospital on January 11, and moved to the intensive care unit on January 13 for worsening hypoxemic respiratory failure. Progress note dated 01/15/2021. Yesterday, the patient was intubated and mechanically ventilated, after developing worsening hypoxemic respiratory failure. A central line was placed, as well as an art line. The patient remains on mechanical ventilator. Currently, he's on the volume assist control mode, rate 26, tidal volume 450, FiO2 100%, and PEEP of 15. Arterial blood gases show a PaO2 of 129, pCO2 58, and a pH is 7.24. With that, the rate is increased to 30 breaths per minute, and the FiO2 was reduced down to 80%. The patient remains on propofol, at 50 mcg/kg/m, Nimbex, at 2 mcg/kg/m, and norepinephrine at 0.03 mcg/kg/m. The patient's also getting saline at 130 mL an hour, IV heparin, and vital, at 23 mL an hour, which is goal. White count 9.5, hemoglobin 13.4, hematocrit 42.3, and platelet count 205,000. PTT is 119. Sodium 140, potassium 4.9, chlorides 111, CO2 25, anion gap 4, BUN 20, creatinine 0.88. The patient's albumin was 2.7. AST was 126 with an ALT of 183. The patient's chest x-ray is consistent with d iffuse bilateral infiltrates, consistent with coronavirus associated pneumonia, and acute respiratory distress syndrome. Progress note dated 01/16/2021. 55-year-old male, with coronavirus associated pneumonia. The patient was intubated and mechanically ventilated on January 14 for worsening hypoxemic respiratory failure. He remains on the ventilator. The patient is on the volume assist control mode, rate 30, tidal volume 450, FiO2 80%, PEEP of 15. Arterial blood gases show pO2 of 53, pCO2 43, and a pH is 7.39. Those blood gases were done on 50%, and subsequent currently, he was increased up to 80%. I've reduced him back down to 60%. In addition, the patient's getting saline at 130 mL an hour, which will be reduced down to KVO, heparin, via weightbase protocol, propofol, at 70 mcg/kg/m, Nimbex at 1.25 mcg/kg/m vital 1.2 at 23 mL an hour, which is goal, and norepinephrine, which is been weaned off recently. White count 9.5, hemoglobin 12.4, hematocrit 38.5, platelet count 199,000. PTT is 40.9, d-dimer is 4.98. Electrolytes, for some reason were not drawn. Chest x-ray shows diffuse bilateral infiltrates, consistent with coronavirus associated pneumonia. Objective - Vital Signs Vital signs: Vital Signs Temp 100.4 F H 01/16/21 08:00 Pulse 77 01/16/21 10:30 Resp 30 H 01/16/21 10:30 BP 99/63 01/16/21 11:00 Pulse Ox 88 L 01/16/21 10:30 Intake & Output 01/15/21 01/16/21 01/16/21 18:59 06:59 18:59 Intake Total 2601.862 2759.211 748.65 Output Total 1225 1055 2195 Balance 3695.295 5387.211 -1446.35 Weight 111.6 kg 111.6 kg Intake: IV 1430 1560 320 Sodium Chloride 0.9% 1, 1430 1560 320 000 ml @ 20 mls/hr IV . Q24H [facility] Rx#:[id number] Intake, IV Titration 728.862 847.211 197.65 Amount Cisatracurium 200 mg In 65.34 106.92 Sodium Chloride 0.9% 180 ml @ 1 MCG/KG/MIN 6.6 mls /hr IV .Q24H [facility] Rx#: [id number] Heparin Sod,Pork in 0.45% 102.025 249.432 NaCl 25,000 unit In 0.45 % NaCl 1 250ml.bag @ 18 UNITS/KG/HR 19.8 mls/hr IV .[id number] [facility] Rx#: [id number] Norepinephrine 8 mg In 109.272 4.152 Sodium Chloride 0.9% 250 ml @ 0.02 MCG/KG/MIN 4. 257 mls/hr IV .Q24H [facility] Rx#:[id number] propofoL 1,000 mg In 452.225 486.707 197.65 Empty Bag 1 bag @ Titrate IV .Q0M [facility] Rx#: [id number] Tube Feeding 253 262 101 Other 190 90 130 Output: Urine 1225 1055 2195 Other: Voiding Method Indwelling Catheter Indwelling Catheter Indwelling Catheter ABP, PAP, CO, CI - Last Documented Arterial Blood Pressure 176/173 - Exam No acute distress, sedated and paralyzed, with an orally placed endotracheal tube and NG tube. HEENT examination is grossly unremarkable. Neck supple. Full range of motion. No adenopathy thyromegaly or neck vein distention. Cardiovascular examination reveals regular rhythm rate. S1-S2 normal. No S3 or S4. No discernible murmur noted. Heart sounds are distant. Heart rate 77 bpm. Lungs reveal diffuse bilateral coarse rhonchi. Diffuse bilateral crackles. Breath sounds equal bilaterally. Abdomen soft bowel sounds are heard. No masses or tenderness. Extremities are intact. No cyanosis clubbing or edema. Skin is without rash or lesion. Neurologic examination cannot be adequately assessed given the fact the patient is sedated and paralyzed. - Labs CBC & Chem 7: 01/16/21 05:00 01/15/21 04:35 Labs: Abnormal Lab Results - Last 24 Hours (Table) 01/15/21 01/15/21 01/15/21 Range/Units 11:47 18:14 18:20 RBC (4.30-5.90) m/uL Hgb (13.0-17.5) gm/dL Hct (39.0-53.0) % Neutrophils # (1.3-7.7) k/uL Lymphocytes # (1.0-4.8) k/uL APTT 69.8 H 52.0 H (22.0-30.0) sec D-Dimer (<0.60) mg/L FEU ABG pO2 (83-108) mmHg ABG HCO3 (21-25) mmol/L ABG Total CO2 (19-24) mmol/L ABG O2 Saturation (94-97) % POC Glucose (mg/dL) 233 H (75-99) mg/dL Lactate Dehydrogenase (313-618) U/L 01/15/21 01/16/21 01/16/21 Range/Units 23:52 01:00 05:00 RBC (4.30-5.90) m/uL Hgb (13.0-17.5) gm/dL Hct (39.0-53.0) % Neutrophils # (1.3-7.7) k/uL Lymphocytes # (1.0-4.8) k/uL APTT 40.9 H (22.0-30.0) sec D-Dimer (<0.60) mg/L FEU ABG pO2 (83-108) mmHg ABG HCO3 (21-25) mmol/L ABG Total CO2 (19-24) mmol/L ABG O2 Saturation (94-97) % POC Glucose (mg/dL) 191 H 184 H (75-99) mg/dL Lactate Dehydrogenase (313-618) U/L 01/16/21 01/16/21 01/16/21 Range/Units 05:00 05:00 05:00 RBC 4.13 L (4.30-5.90) m/uL Hgb 12.4 L (13.0-17.5) gm/dL Hct 38.5 L (39.0-53.0) % Neutrophils # 8.0 H (1.3-7.7) k/uL Lymphocytes # 0.9 L (1.0-4.8) k/uL APTT (22.0-30.0) sec D-Dimer 4.98 H (<0.60) mg/L FEU ABG pO2 (83-108) mmHg ABG HCO3 (21-25) mmol/L ABG Total CO2 (19-24) mmol/L ABG O2 Saturation (94-97) % POC Glucose (mg/dL) (75-99) mg/dL Lactate Dehydrogenase 1564 H (313-618) U/L 01/16/21 01/16/21 Range/Units 05:03 06:02 RBC (4.30-5.90) m/uL Hgb (13.0-17.5) gm/dL Hct (39.0-53.0) % Neutrophils # (1.3-7.7) k/uL Lymphocytes # (1.0-4.8) k/uL APTT (22.0-30.0) sec D-Dimer (<0.60) mg/L FEU ABG pO2 53 L* (83-108) mmHg ABG HCO3 26 H (21-25) mmol/L ABG Total CO2 28 H (19-24) mmol/L ABG O2 Saturation 88.6 L (94-97) % POC Glucose (mg/dL) 145 H (75-99) mg/dL Lactate Dehydrogenase (313-618) U/L Microbiology - Last 24 Hours (Table) 01/14/21 09:40 Gram Stain - Preliminary Sputum Sputum Culture - Preliminary Aspergillus species Assessment and Plan Assessment: Acute hypoxemic respiratory failure secondary to coronavirus associated pneumonia, with intubation and mechanical ventilation, initiated on January 14, for worsening hypoxemia. Acute respiratory distress syndrome (ARDS), secondary to coronavirus associated pneumonia. Previous history of bilateral pulmonary emboli, and left leg DVT, 2016, currently on IV heparin empirically. History of osteoarthritis. No prior history of tobacco use. Plan: Plan dated 01/14/2021. Currently, the patient's on appropriate medication. I did tell the patient, that he may require intubation and mechanical ventilation. Currently, he looks so good despite being on BiPAP, the patient will try to ride it out a bit longer. Should he fatigue, or should his saturations drop, we will do an elective intubation and mechanical ventilation. Will likely need an art line and a central line. Labs are reviewed. Prognosis is guarded. We will continue to follow make recommendations where appropriate. Plan dated 01/15/2021. Yesterday, the patient developed worsening hypoxemic respiratory failure, and was intubated. The patient remains on vitamin C, vitamin D3, and zinc. In addition, the patient is being sedated with, and paralyzed with Nimbex. The patient is getting Dilaudid when necessary. The patient remains on IV heparin, and Decadron. The patient is also getting BASHIR. Obviously, the patient is very critically ill, and we will continue to follow the patient and make recommendations were appropriate. Prognosis is guarded. Plan dated 01/16/2021. The patient remains on the mechanical ventilator. We have been able to wean off the norepinephrine. Remains on propofol, and Nimbex. He is getting tube feeds at goal. The patient gets Lasix 40 mg IV push. We will attempt to prone the patient for 16 hours. The FiO2 was changed to 60%. We will continue to follow make recommendations where appropriate. Prognosis is guarded. In addition to vitamins, and Decadron, he remains on BASHIR. Time with Patient: Greater than 30
[2021-01-16 12:21] LABS: Glucose,Whole Blood 190 mg/dL (75-99)
[2021-01-16 12:56] LABS: African American GFR (CKD) >90 (>60 ml/min/1.73 sqM); Anion Gap 1 mmol/L; Blood Urea Nitrogen 19 mg/dL (9-20); Calcium 7.9 mg/dL (8.4-10.2); Carbon Dioxide 26 mmol/L (22-30); Chloride 111 mmol/L (98-107); Glucose 159 mg/dL (74-99); Non-African American GFR(CKD) >90 (>60 ml/min/1.73 sqM); Sodium 138 mmol/L (137-145)
--- NOTE | 2021-01-16 14:41 | P.PN ---
Subjective Progress Note Date: 01/16/21 HISTORY OF PRESENT ILLNESS This is a 55-year-old male patient of Dr. 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 Patient states he has not been feeling well since Thursday. He said shortness of breath cough is nonproductive along with fever and chills, exertional dyspnea. He denies having any nausea vomiting or diarrhea. He denies any close contacts to known Covid people. He states his temperature is been up to 102.7 at home. He is not vaccinated. Patient presented to [facility] emergency center and found to be febrile at 101.1, heart rate 90, blood pressure 122/80, pulse ox 85% on room air. CBC revealed platelet count of 128. D-dimer 0.82. Sodium 131 otherwise electrolytes and renal function were normal. Blood sugar 147. Troponin negative. Coronavirus PCR positive. Chest x-ray reveals patchy bilateral airspace disease especially in the mid and lower lungs. Correlate for multifocal pneumonia including Covid 19 pneumonia. CTA of the chest was suboptimal study without central acute pulmonary embolism. Bilateral multifocal and confluent groundglass opacities right greater than left and greater in the lower lungs consistent with known Covid 19 infection. Patient is seen today in the emergency center waiting for bed on the [facility] floor, started on Remdesivir, Lovenox, dexamethasone and vitamin supplements, consult with pulmonary medicine. 01/12: Patient is comfortable, however he requires 40 L of oxygen via airvo sats 88-89%, he feels better today compared to his nonrebreather mask yesterday, patient did not sleep well, patient does not have any cough, however he does have shortness of breath. Patient denies any aspiration, appetite is still marginal, patient has insomnia vitals, blood sugar currently is 243, creatinine of 0.98, d-dimer is 0.84, CRP is elevated, LDH is elevated, venous Doppler, shows chronic DVT, left popliteal, in the posterior tibial veins, without any obstruction of flow. No acute DVT identified CTA, shows suboptimal, without central acute pulmonary emboli, has bilateral multifocal and confluent groundglass opacities, right greater than left, lower lobe, consistent with COVID-19 infection and remdesivir discontinued by pulmonary today and is outside of the window for remdesivir 01/13: Patient is on aerosol 14 L, with nonrebreather mask, 15 L, hypoxemia n oted on 88%, worse with coughing, however his nonrebreather mask is very loose. Nurse is worriedwith the turn of events, and requested an ICU transfer, Dr. Canales has seen the patient, and is stable for floor management at this time, patient is not significant tachypnea, and is not tiring out. There is no hemoptysis, and mucus is productive, patient's doing incentive spirometry, up 2 L. 01/14: Patient remains in the intensive care unit, he was intubated this morning as he was desaturating with BiPAP. He has been afebrile, heart rate 73, blood pressure 93/47, pulse ox 90%. CBC is unremarkable. D-dimer 12.04. Sodium 135, creatinine 0.82. LDH 2929, C-reactive protein 5.2. Sputum culture is in progress. He has had good urine output. Chest x-ray reveals no evident convocation from catheters. Bilateral airspace disease. 01/15: Patient remains in the intensive care intubated and on mechanical ventilation with tidal volume 450, FiO2 80, PEEP of 15. Patient has been started on norepinephrine and remains on propofol, heparin drip, Nimbex. Repeat blood work revealed unremarkable CBC. Creatinine 0.88. Capillary blood glucose running between 195 and 215. AST 126, ALT 183, alkaline phosphatase 109. Sputum culture is in progress. Repeat chest x-ray reveals correlate for pneumonia versus edema, ARDS. Patient is continued on vitamin supplements, heparin drip, dexamethasone and Baricitinib. patient remains in intensive care intubated on mechanical ventilator at FiO2 60 percent PEEP respiratory rate of 30 tidal volume 450. Continues to maintain saturations between 94-95% on the current settings. Vitals otherwise stable labs reviewed today WBC is 9.5 hemoglobin 12.4 d-dimer is elevated at 4.98. ABG obtained today suggest pH of 7.4 pO2 53 bicarb 26 on 50% FiO2. Creatinine stable at 0.78 glucose is maintained between 145-190. LDH 1564 CRP is elevated at 4. Patient's inflammatory markers trending down. Patient's vent settings increased to 80% for inadequate oxygenation. Chest x-ray reviewed showed bilateral infiltrate consistent with coronavirus associated pneumonia. Patient continues intubated on propofol 70 bike but patient examined Nimbex 1.25 g daily per minute. Patient to receive 1 dose of Lasix today. Continue to remain on baricitinib day 2 REVIEW OF SYSTEMS Unable to obtain due to intubation PHYSICAL EXAMINATION Gen: This is a 55-year-old male. He is resting in ICU bed, intubated and on mechanical ventilation, appears to be comfortable. Full examination deferred to the intensive is due to intubation and Covid 19. ASSESSMENT AND PLAN 1. Acute hypoxic respiratory failure secondary to Covid 19 pneumonia non-vaccin ated individual. Patient required intubation 01/14. Patient started on Remdesivir was discontinued by pulmonary, on January 12 started on baricinib 4 mg daily , heparin drip, dexamethasone 6 mg daily and vitamin supplements, consult with pulmonary medicine. 2. History of bilateral pulmonary emboli and DVT in 2015. CTA negative for PE. Not on chronic anticoagulation, patient started on heparin drip 3. Generalized osteoarthritis. 4. Degenerative changes in the cervical spine status post fusion of C5-6. 5. GI prophylaxis. Protonix. 6. DVT prophylaxis. Lovenox. DISCHARGE PLAN Home. vs IP rehab . will expect to stay here for covid protracted length of time Objective - Vital Signs Vital signs: Vital Signs Temp 97.8 F 01/16/21 04:00 Pulse 66 01/16/21 05:00 Resp 30 H 01/16/21 05:00 BP 99/63 01/16/21 01:30 Pulse Ox 91 L 01/16/21 05:00 Intake & Output 01/15/21 01/15/21 01/16/21 06:59 18:59 06:59 Intake Total 2825.47 2601.862 2377.429 Output Total 2170 1225 980 Balance 655.47 1970.818 8218.429 Weight 111.5 kg 111.6 kg Intake: IV 1690 1430 1430 Sodium Chloride 0.9% 1, 1690 1430 1430 000 ml @ 130 mls/hr IV . [id number] [facility] Rx#:[id number] Intake, IV Titration 769.47 728.862 627.429 Amount Cisatracurium 200 mg In 166.54 65.34 106.92 Sodium Chloride 0.9% 180 ml @ 1 MCG/KG/MIN 6.6 mls /hr IV .Q24H [facility] Rx#: [id number] Heparin Sod,Pork in 0.45% 402.93 102.025 229.65 NaCl 25,000 unit In 0.45 % NaCl 1 250ml.bag @ 18 UNITS/KG/HR 19.8 mls/hr IV .[id number] [facility] Rx#: [id number] Norepinephrine 8 mg In 109.272 4.152 Sodium Chloride 0.9% 250 ml @ 0.02 MCG/KG/MIN 4. 257 mls/hr IV .Q24H [facility] Rx#:[id number] propofoL 1,000 mg In 200 452.225 286.707 Empty Bag 1 bag @ Titrate IV .Q0M [facility] Rx#: [id number] Tube Feeding 276 253 230 Other 90 190 90 Output: Urine 2170 1225 980 Other: Voiding Method Indwelling Catheter Indwelling Catheter Indwelling Catheter ABP, PAP, CO, CI - Last Documented Arterial Blood Pressure 101/60 - Labs CBC & Chem 7: 01/16/21 05:00 01/16/21 05:00 Labs: Abnormal Lab Results - Last 24 Hours (Table) 01/15/21 01/15/21 01/15/21 Range/Units 06:20 11:33 11:47 RBC (4.30-5.90) m/uL Hgb (13.0-17.5) gm/dL Hct (39.0-53.0) % Neutrophils # (1.3-7.7) k/uL Lymphocytes # (1.0-4.8) k/uL APTT 69.8 H (22.0-30.0) sec ABG pH 7.24 L (7.35-7.45) ABG pCO2 58 H (35-45) mmHg ABG pO2 129 H (83-108) mmHg ABG HCO3 (21-25) mmol/L ABG Total CO2 18 L (19-24) mmol/L ABG O2 Saturation 99.0 H (94-97) % POC Glucose (mg/dL) 200 H (75-99) mg/dL Lactate Dehydrogenase (313-618) U/L 01/15/21 01/15/21 01/15/21 Range/Units 18:14 18:20 23:52 RBC (4.30-5.90) m/uL Hgb (13.0-17.5) gm/dL Hct (39.0-53.0) % Neutrophils # (1.3-7.7) k/uL Lymphocytes # (1.0-4.8) k/uL APTT 52.0 H (22.0-30.0) sec ABG pH (7.35-7.45) ABG pCO2 (35-45) mmHg ABG pO2 (83-108) mmHg ABG HCO3 (21-25) mmol/L ABG Total CO2 (19-24) mmol/L ABG O2 Saturation (94-97) % POC Glucose (mg/dL) 233 H 191 H (75-99) mg/dL Lactate Dehydrogenase (313-618) U/L 01/16/21 01/16/21 01/16/21 Range/Units 01:00 05:00 05:00 RBC 4.13 L (4.30-5.90) m/uL Hgb 12.4 L (13.0-17.5) gm/dL Hct 38.5 L (39.0-53.0) % Neutrophils # 8.0 H (1.3-7.7) k/uL Lymphocytes # 0.9 L (1.0-4.8) k/uL APTT 40.9 H (22.0-30.0) sec ABG pH (7.35-7.45) ABG pCO2 (35-45) mmHg ABG pO2 (83-108) mmHg ABG HCO3 (21-25) mmol/L ABG Total CO2 (19-24) mmol/L ABG O2 Saturation (94-97) % POC Glucose (mg/dL) 184 H (75-99) mg/dL Lactate Dehydrogenase (313-618) U/L 01/16/21 01/16/21 01/16/21 Range/Units 05:00 05:03 06:02 RBC (4.30-5.90) m/uL Hgb (13.0-17.5) gm/dL Hct (39.0-53.0) % Neutrophils # (1.3-7.7) k/uL Lymphocytes # (1.0-4.8) k/uL APTT (22.0-30.0) sec ABG pH (7.35-7.45) ABG pCO2 (35-45) mmHg ABG pO2 53 L* (83-108) mmHg ABG HCO3 26 H (21-25) mmol/L ABG Total CO2 28 H (19-24) mmol/L ABG O2 Saturation 88.6 L (94-97) % POC Glucose (mg/dL) 145 H (75-99) mg/dL Lactate Dehydrogenase 1564 H (313-618) U/L
[2021-01-16] MEDS: BARICITINIB 2 MG TABLET PO SCH (14:56)
[2021-01-16 17:19] LABS: Glucose,Whole Blood 196 mg/dL (75-99)
[2021-01-16 23:52] LABS: Glucose,Whole Blood 147 mg/dL (75-99)
[2021-01-17] MEDS: ARTIFICIAL TEARS-HYPROMELLOSE DROPS 15 ML BTL BOTH EYES SCH ×6 (00:02→20:21)
[2021-01-17] MEDS: INSULIN ASPART (NovoLOG) 100 UNIT/ML VIAL SQ SCH ×4 (00:05→18:00)
[2021-01-17] MEDS: HYDROmorphone 1 MG/ML 1 ML SYRINGE IVP PRN ×4 (01:34→17:49)
[2021-01-17 05:24] LABS: Glucose,Whole Blood 126 mg/dL (75-99)
[2021-01-17 05:58] LABS: Basophils % (A) 0 %; Eosinophils # (A) 0.2 k/uL (0-0.7); Eosinophils % (A) 2 %; HCT 37.3 % (39.0-53.0); HGB 12.6 gm/dL (13.0-17.5); Lymphocytes # (A) 0.9 k/uL (1.0-4.8); Lymphocytes % (A) 10 %; MCHC 33.9 g/dL (31.0-37.0); MCV 91.6 fL (80.0-100.0); Mean Platelet Volume 8.2; Monocytes # (A) 0.3 k/uL (0-1.0); Monocytes % (A) 3 %; Neutrophils # (A) 7.8 k/uL (1.3-7.7); Neutrophils % (A) 84 %; Platelet Count 240 k/uL (150-450); RBC 4.07 m/uL (4.30-5.90); RDW 13.5 % (11.5-15.5); WBC 9.2 k/uL (3.8-10.6)
[2021-01-17 06:11] LABS: ABG Base Excess 4.2 mmol/L; ABG HCO3 30 mmol/L (21-25); ABG Oxygen Saturation 95.8 % (94-97); ABG PCO2 53 mmHg (35-45); ABG PH 7.35 (7.35-7.45); ABG PO2 79 mmHg (83-108); ABG TCO2 31 mmol/L (19-24)
[2021-01-17 06:34] LABS: Allen Test Performed? no
[2021-01-17 07:20] LABS: ALT 182 U/L (4-49); AST 71 U/L (17-59); African American GFR (CKD) >90 (>60 ml/min/1.73 sqM); Albumin 2.5 g/dL (3.5-5.0); Alkaline Phosphatase 93 U/L (38-126); Anion Gap 4 mmol/L; Blood Urea Nitrogen 20 mg/dL (9-20); Carbon Dioxide 27 mmol/L (22-30); Chloride 104 mmol/L (98-107); Glucose 135 mg/dL (74-99); Non-African American GFR(CKD) >90 (>60 ml/min/1.73 sqM); Potassium 4.1 mmol/L (3.5-5.1); Sodium 135 mmol/L (137-145); Total Bilirubin 0.5 mg/dL (0.2-1.3); Total Protein 4.8 g/dL (6.3-8.2)
--- NOTE | 2021-01-17 07:41 | XR ---
EXAMINATION TYPE: XR chest 1V portable DATE OF EXAM: 01/17/2021 CLINICAL HISTORY: Difficulty breathing progress study. TECHNIQUE: Single AP portable upright view of the chest is obtained. COMPARISON: Chest x-ray from one day earlier FINDINGS: Stable left subclavian central venous catheter. Stable orogastric tube. Bilateral multifocal mid to lower lung opacities redemonstrated. Some improvement in opacities left m id to lower lung thought present. Cardiac silhouette size stable and upper limits of normal. Surgical change to cervical spine noted. IMPRESSION: Bilateral mid to lower lung opacities consistent with known covid-19 infection, some impr dasia aeration in the left mid to lower lung thought present from one day earlier.
[2021-01-17] MEDS: ASCORBIC ACID 500 MG TAB PO SCH (08:39)
[2021-01-17] MEDS: ACETAMINOPHEN TAB 325 MG TAB PO PRN (08:39)
[2021-01-17] MEDS: ZINC SULFATE 220 MG CAP PO SCH (08:39)
[2021-01-17] MEDS: DEXAMETHASONE SOD PHOSPHATE 10 MG/ML 1 ML VIAL IVP SCH (08:40)
[2021-01-17] MEDS: CHOLECALCIFEROL 25 MCG (1000 IU) TABLET PO SCH (08:40)
[2021-01-17] MEDS: LACTULOSE 20 GM/30 ML CUP PO SCH ×3 (08:46→21:17)
[2021-01-17] MEDS: CHLORHEXIDINE GLUCONATE 15 ML CUP MUCOUS MEM SCH ×2 (08:47→20:22)
[2021-01-17] MEDS: HEPARIN SOD,PORK IN 0.45% NACL 25,000 UNIT in 0.45% NACL 1 250ML.BAG IV SCH (09:57)
[2021-01-17 11:36] LABS: Glucose,Whole Blood 172 mg/dL (75-99)
--- NOTE | 2021-01-17 11:55 | P.PN ---
Subjective Progress Note Date: 01/17/21 Principal diagnosis: Coronavirus associated pneumonia. COVID-19 pneumonia 55-year-old male patient of Dr. Palm, with a past medical history of bilateral pulmonary emboli, and left leg DVT, migraine headaches, hiatal hernia, inguinal hernias, osteoarthritis with previous history of right shoulder arthroscopy, cervical fusion, nonsmoker, who came into the emergency department on 01/11/2021 for evaluation of shortness of breath, fatigue, cough, fever. His symptoms started on Thursday01/11/2021 and became progressive. Patient is not vaccinated against COVID-19. Chest x-ray today shows patchy bilateral airspace disease especially in the mid and lower lungs. COVID-19 PCR was negative, his white count is 6.1, hemoglobin is 16.8, platelet count is 128, lymphocyte count is 0.9, d-dimer is 0.82, coagulation profile was within normal limits, sodium is 131, the rest of electrolytes are within normal limits, troponin was less than 0.012, LFTs were within normal limits, lactic acid was 1.1. CT angiogram of the chest showed suboptimal study without central acute pulmonary embolism, and bilateral multifocal and confluent groundglass opacities right greater than left and greater in the lower lungs consistent with history of COVID-19 infection. Pulse ox was 85%, patient was febrile on presentation with a temp of 101.1F, he was placed on 3 L of supplemental oxygen, he is awake and alert, does not appear to be in any acute distress, he is ambulating, and does have exertional dyspnea but no acute distress. He was started on Decadron 10 mg IV push 1, prophyla ctic Lovenox, and multivitamins The patient is seen today 01/12/2021 in follow-up on the regular medical floor. He is currently sitting up in a chair at the bedside. His oxygen requirements to go up. He is currently on a 15 L nonrebreather mask with O2 saturation 91%. He was on 4 L yesterday. He is having more shortness of breath. 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 D-dimer 0.84. LDH 684. C-reactive protein 7.0. He is on day #2 of Remdesivir. He remains on Decadron, Lovenox, vitamin supplements. 0.9 normal saline at 130 ML's per hour. The patient is seen today 01/13/2021 in follow-up on the regular medical floor. He is currently sitting up in a chair at the bedside. Awake and alert. He did have some issues with worsening shortness of breath on minimal exertion. He is on the AirVo high flow oxygen at 4 L and 90% FiO2 plus a nonrebreather mask to maintain O2 saturations in the high 80s and low 90s. He's been afebrile. Hemodynamically stable. White count 8.8. Hemoglobin 13.9. Lymphocytes 0.9. Sodium 137. Potassium 4.1. Creatinine 0.4. He is continued on Baricitinib, Decadron, Lovenox, vitamin supplements. Progress note dated 01/14/2021. This morning, the patient was on BiPAP, with settings of 14/6 and 100%. He change IPAP of 14-16. The patient's getting saline at 130 mL an hour, and Precedex at 0.4 mcg/kg/h. I did speak to the patient about the possibility of intubation and mechanical ventilation. The patient was also placed on IV heparin, given his prior history of DVT and pulmonary embolism. White count 7.4, hemoglobin 14.4, hematocrit 43.8, platelet count 165,000. D-dimer was 12.04. Sodium 135, potassium 4.7, chlorides 107, CO2 23, anion gap 5, BUN 24, and creatinine 0.82. LDH was 2929. C-reactive protein was 5.2. The patient's chest x-ray shows diffuse bilateral infiltrates. This patient was admitted to the hospital on January 11, and moved to the intensive care unit on January 13 for worsening hypoxemic respiratory failure. Progress note dated 01/15/2021. Yesterday, the patient was intubated and mechanically ventilated, after developing worsening hypoxemic respiratory failure. A central line was placed, as well as an art line. The patient remains on mechanical ventilator. Currently, he's on the volume assist control mode, rate 26, tidal volume 450, FiO2 100%, and PEEP of 15. Arterial blood gases show a PaO2 of 129, pCO2 58, and a pH is 7.24. With that, the rate is increased to 30 breaths per minute, and the FiO2 was reduced down to 80%. The patient remains on propofol, at 50 mcg/kg/m, Nimbex, at 2 mcg/kg/m, and norepinephrine at 0.03 mcg/kg/m. The patient's also getting saline at 130 mL an hour, IV heparin, and vital, at 23 mL an hour, which is goal. White count 9.5, hemoglobin 13.4, hematocrit 42.3, and platelet count 205,000. PTT is 119. Sodium 140, potassium 4.9, chlorides 111, CO2 25, anion gap 4, BUN 20, creatinine 0.88. The patient's albumin was 2.7. AST was 126 with an ALT of 183. The patient's chest x-ray is consistent with d iffuse bilateral infiltrates, consistent with coronavirus associated pneumonia, and acute respiratory distress syndrome. Progress note dated 01/16/2021. 55-year-old male, with coronavirus associated pneumonia. The patient was intubated and mechanically ventilated on January 14 for worsening hypoxemic respiratory failure. He remains on the ventilator. The patient is on the volume assist control mode, rate 30, tidal volume 450, FiO2 80%, PEEP of 15. Arterial blood gases show pO2 of 53, pCO2 43, and a pH is 7.39. Those blood gases were done on 50%, and subsequent currently, he was increased up to 80%. I've reduced him back down to 60%. In addition, the patient's getting saline at 130 mL an hour, which will be reduced down to KVO, heparin, via weightbase protocol, propofol, at 70 mcg/kg/m, Nimbex at 1.25 mcg/kg/m vital 1.2 at 23 mL an hour, which is goal, and norepinephrine, which is been weaned off recently. White count 9.5, hemoglobin 12.4, hematocrit 38.5, platelet count 199,000. PTT is 40.9, d-dimer is 4.98. Electrolytes, for some reason were not drawn. Chest x-ray shows diffuse bilateral infiltrates, consistent with coronavirus associated pneumonia. Progress note dated 01/17/2021. 55-year-old male, with coronavirus pneumonia. The patient was intubated and mechanically ventilated on January 14 for worsening hypoxemic respiratory failure. The patient remains on mechanical ventilator. He is on the volume assist control mode, rate 30, tidal volume 450, FiO2 60%, and PEEP of 15. Blood gases show a PaO2 of 79, CO2 53, and pH 7.35. The patient remains on Nimbex at 2.25 mcg/kg/m, a fall at 70 mcg/kg/m, heparin via weightbase protocol, saline at 20 mL an hour, and vital AF at 14, which is goal. The patient was prolonged for 16 hours yesterday. The patient does have a cuff leak on its endotracheal tube. We'll have anesthesia take a look at it. The 2 may need to be replaced. White count 9.2, he will been 12.6, hematocrit 37.3, and platelet count 340,000. PTT is 48.4. Sodium 135, potassium 4.1, chlorides 104, CO2 27, anion gap 4, BUN 20, with a creatinine 0.73. Albumin is 2.5. Chest x-ray shows diffuse bilateral infiltrates consistent with coronavirus pneumonia. Objective - Vital Signs Vital signs: Vital Signs Temp 100 F H 01/17/21 08:00 Pulse 87 01/17/21 11:00 Resp 30 H 01/17/21 11:00 BP 99/63 01/17/21 11:00 Pulse Ox 90 L 01/17/21 11:00 Intake & Output 01/16/21 01/17/21 01/17/21 18:59 06:59 18:59 Intake Total 1615.05 1356.068 996.680 Output Total 3400 975 330 Balance -1784.95 381.068 666.680 Weight 111.6 kg 111.2 kg Intake: IV 440 240 100 Sodium Chloride 0.9% 1, 440 240 100 000 ml @ 20 mls/hr IV . Q24H [facility] Rx#:[id number] Intake, IV Titration 634.05 706.068 506.680 Amount Cisatracurium 200 mg In 135.3 78.98 Sodium Chloride 0.9% 180 ml @ 1 MCG/KG/MIN 6.6 mls /hr IV .Q24H [facility] Rx#: [id number] Heparin Sod,Pork in 0.45% 136.4 71.5 242.55 NaCl 25,000 unit In 0.45 % NaCl 1 250ml.bag @ 18 UNITS/KG/HR 19.8 mls/hr IV .[id number] [facility] Rx#: [id number] propofoL 1,000 mg In 497.65 499.268 185.150 Empty Bag 1 bag @ Titrate IV .Q0M [facility] Rx#: [id number] Tube Feeding 171 140 70 Other 370 270 320 Output: Urine 3400 975 330 Other: Voiding Method Indwelling Catheter Indwelling Catheter Indwelling Catheter # Bowel Movements 1 ABP, PAP, CO, CI - Last Documented Arterial Blood Pressure 126/54 - Exam No acute distress, sedated and paralyzed, with an orally placed endotracheal tube and NG tube. HEENT examination is grossly unremarkable. Neck supple. Full range of motion. No adenopathy thyromegaly or neck vein distention. Cardiovascular examination reveals regular rhythm rate. S1-S2 normal. No S3 or S4. No discernible murmur noted. Heart sounds are distant. Heart rate 87 bpm. Lungs reveal diffuse bilateral coarse rhonchi. Diffuse bilateral crackles. Breath sounds equal bilaterally. Breath sounds are unchanged. Abdomen soft bowel sounds are heard. No masses or tenderness. Extremities are intact. No cyanosis clubbing or edema. Skin is without rash or lesion. Neurologic examination cannot be adequately assessed given the fact the patient is sedated and paralyzed. - Labs CBC & Chem 7: 01/17/21 05:10 01/17/21 05:10 Labs: Abnormal Lab Results - Last 24 Hours (Table) 01/16/21 01/16/21 01/16/21 Range/Units 05:00 12:15 12:19 RBC (4.30-5.90) m/uL Hgb (13.0-17.5) gm/dL Hct (39.0-53.0) % Neutrophils # (1.3-7.7) k/uL Lymphocytes # (1.0-4.8) k/uL APTT 56.1 H (22.0-30.0) sec ABG pCO2 (35-45) mmHg ABG pO2 (83-108) mmHg ABG HCO3 (21-25) mmol/L ABG Total CO2 (19-24) mmol/L Sodium (137-145) mmol/L Chloride 111 H (98-107) mmol/L Glucose 159 H (74-99) mg/dL POC Glucose (mg/dL) 190 H (75-99) mg/dL Calcium 7.9 L (8.4-10.2) mg/dL AST (17-59) U/L ALT (4-49) U/L C-Reactive Protein 4.0 H (<1.0) mg/dL Total Protein (6.3-8.2) g/dL Albumin (3.5-5.0) g/dL 01/16/21 01/16/21 01/17/21 Range/Units 17:16 23:52 05:10 RBC 4.07 L (4.30-5.90) m/uL Hgb 12.6 L (13.0-17.5) gm/dL Hct 37.3 L (39.0-53.0) % Neutrophils # 7.8 H (1.3-7.7) k/uL Lymphocytes # 0.9 L (1.0-4.8) k/uL APTT (22.0-30.0) sec ABG pCO2 (35-45) mmHg ABG pO2 (83-108) mmHg ABG HCO3 (21-25) mmol/L ABG Total CO2 (19-24) mmol/L Sodium (137-145) mmol/L Chloride (98-107) mmol/L Glucose (74-99) mg/dL POC Glucose (mg/dL) 196 H 147 H (75-99) mg/dL Calcium (8.4-10.2) mg/dL AST (17-59) U/L ALT (4-49) U/L C-Reactive Protein (<1.0) mg/dL Total Protein (6.3-8.2) g/dL Albumin (3.5-5.0) g/dL 01/17/21 01/17/21 01/17/21 Range/Units 05:10 05:10 05:10 RBC (4.30-5.90) m/uL Hgb (13.0-17.5) gm/dL Hct (39.0-53.0) % Neutrophils # (1.3-7.7) k/uL Lymphocytes # (1.0-4.8) k/uL APTT 48.4 H (22.0-30.0) sec ABG pCO2 53 H (35-45) mmHg ABG pO2 79 L (83-108) mmHg ABG HCO3 30 H (21-25) mmol/L ABG Total CO2 31 H (19-24) mmol/L Sodium 135 L (137-145) mmol/L Chloride (98-107) mmol/L Glucose 135 H (74-99) mg/dL POC Glucose (mg/dL) (75-99) mg/dL Calcium 8.0 L (8.4-10.2) mg/dL AST 71 H (17-59) U/L ALT 182 H (4-49) U/L C-Reactive Protein (<1.0) mg/dL Total Protein 4.8 L (6.3-8.2) g/dL Albumin 2.5 L (3.5-5.0) g/dL 01/17/21 01/17/21 Range/Units 05:23 11:34 RBC (4.30-5.90) m/uL Hgb (13.0-17.5) gm/dL Hct (39.0-53.0) % Neutrophils # (1.3-7.7) k/uL Lymphocytes # (1.0-4.8) k/uL APTT (22.0-30.0) sec ABG pCO2 (35-45) mmHg ABG pO2 (83-108) mmHg ABG HCO3 (21-25) mmol/L ABG Total CO2 (19-24) mmol/L Sodium (137-145) mmol/L Chloride (98-107) mmol/L Glucose (74-99) mg/dL POC Glucose (mg/dL) 126 H 172 H (75-99) mg/dL Calcium (8.4-10.2) mg/dL AST (17-59) U/L ALT (4-49) U/L C-Reactive Protein (<1.0) mg/dL Total Protein (6.3-8.2) g/dL Albumin (3.5-5.0) g/dL Microbiology - Last 24 Hours (Table) 01/14/21 09:40 Gram Stain - Preliminary Sputum Sputum Culture - Preliminary Aspergillus species Assessment and Plan Assessment: Acute hypoxemic respiratory failure secondary to coronavirus associated pneumonia, with intubation and mechanical ventilation, initiated on January 14, for worsening hypoxemia. Acute respiratory distress syndrome (ARDS), secondary to coronavirus associated pneumonia. Previous history of bilateral pulmonary emboli, and left leg DVT, 2016, currently on IV heparin empirically. History of osteoarthritis. No prior history of tobacco use. Plan: Plan dated 01/14/2021. Currently, the patient's on appropriate medication. I did tell the patient, that he may require intubation and mechanical ventilation. Currently, he looks so good despite being on BiPAP, the patient will try to ride it out a bit longer. Should he fatigue, or should his saturations drop, we will do an elective intubation and mechanical ventilation. Will likely need an art line and a central line. Labs are reviewed. Prognosis is guarded. We will continue to follow make recommendations where appropriate. Plan dated 01/15/2021. Yesterday, the patient developed worsening hypoxemic respiratory failure, and was intubated. The patient remains on vitamin C, vitamin D3, and zinc. In addition, the patient is being sedated with, and paralyzed with Nimbex. The patient is getting Dilaudid when necessary. The patient remains on IV heparin, and Decadron. The patient is also getting BASHIR. Obviously, the patient is very critically ill, and we will continue to follow the patient and make recommendations were appropriate. Prognosis is guarded. Plan dated 01/16/2021. The patient remains on the mechanical ventilator. We have been able to wean off the norepinephrine. Remains on propofol, and Nimbex. He is getting tube feeds at goal. The patient gets Lasix 40 mg IV push. We will attempt to prone the patient for 16 hours. The FiO2 was changed to 60%. We will continue to follow make recommendations where appropriate. Prognosis is guarded. In addition to vitamins, and Decadron, he remains on BASHIR. Plan dated 01/17/2021. The patient is not quite ready to come off the ventilator. He still requiring 6% FiO2, and PEEP of 15. The patient has shown some improvement since he was intubated a couple days ago. He remains on IV heparin, propofol, and paralysis with Nimbex. The patient was proned for 16 hours yesterday. His endotracheal tube may need to be changed. He remains on vital AF. We will continue to follow and make recommendations were appropriate. Prognosis is certainly guarded. He remains on vitamin C, vitamin D3, zinc, Decadron, and BASHIR. Time with Patient: Greater than 30
[2021-01-17] MEDS: BARICITINIB 2 MG TABLET PO SCH (15:11)
[2021-01-17] MEDS: CISATRACURIUM 200 MG in SODIUM CHLORIDE 0.9% 180 ML IV SCH (15:24)
[2021-01-17] MEDS: SODIUM CHLORIDE 0.9% 1,000 ML IV SCH (15:25)
[2021-01-17 17:42] LABS: Glucose,Whole Blood 174 mg/dL (75-99)
--- NOTE | 2021-01-17 18:56 | XR ---
EXAMINATION TYPE: XR chest 1V portable DATE OF EXAM: 01/17/2021 COMPARISON: 01/17/2021 HISTORY: 55 years Male. STUDY INDICATION GIVEN: reintubation, ngt placement . TECHNIQUE: AP portable chest x-ray in the semiupright position IMPRESSION: Tip of endotracheal tube 2.4 cm above charity. Left subclavian central venous catheter tip at the cavoatrial junction stable. Nasogastric tube courses into the stomach. Bilateral interstitial and airspace opacities are seen again without significant change. No pneumothorax or large effusion appreciated. The cardiomediastinal silhouette is within normal limit. Osseous structures are stable compared to prior.
--- NOTE | 2021-01-17 21:50 | P.PN ---
Subjective Progress Note Date: 01/17/21 HISTORY OF PRESENT ILLNESS This is a 55-year-old male patient of Dr. 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 Patient states he has not been feeling well since Thursday. He said shortness of breath cough is nonproductive along with fever and chills, exertional dyspnea. He denies having any nausea vomiting or diarrhea. He denies any close contacts to known Covid people. He states his temperature is been up to 102.7 at home. He is not vaccinated. Patient presented to [facility] emergency center and found to be febrile at 101.1, heart rate 90, blood pressure 122/80, pulse ox 85% on room air. CBC revealed platelet count of 128. D-dimer 0.82. Sodium 131 otherwise electrolytes and renal function were normal. Blood sugar 147. Troponin negative. Coronavirus PCR positive. Chest x-ray reveals patchy bilateral airspace disease especially in the mid and lower lungs. Correlate for multifocal pneumonia including Covid 19 pneumonia. CTA of the chest was suboptimal study without central acute pulmonary embolism. Bilateral multifocal and confluent groundglass opacities right greater than left and greater in the lower lungs consistent with known Covid 19 infection. Patient is seen today in the emergency center waiting for bed on the [facility] floor, started on Remdesivir, Lovenox, dexamethasone and vitamin supplements, consult with pulmonary medicine. 01/12: Patient is comfortable, however he requires 40 L of oxygen via airvo sats 88-89%, he feels better today compared to his nonrebreather mask yesterday, patient did not sleep well, patient does not have any cough, however he does have shortness of breath. Patient denies any aspiration, appetite is still marginal, patient has insomnia vitals, blood sugar currently is 243, creatinine of 0.98, d-dimer is 0.84, CRP is elevated, LDH is elevated, venous Doppler, shows chronic DVT, left popliteal, in the posterior tibial veins, without any obstruction of flow. No acute DVT identified CTA, shows suboptimal, without central acute pulmonary emboli, has bilateral multifocal and confluent groundglass opacities, right greater than left, lower lobe, consistent with COVID-19 infection and remdesivir discontinued by pulmonary today and is outside of the window for remdesivir 01/13: Patient is on aerosol 14 L, with nonrebreather mask, 15 L, hypoxemia n oted on 88%, worse with coughing, however his nonrebreather mask is very loose. Nurse is worriedwith the turn of events, and requested an ICU transfer, Dr. Canales has seen the patient, and is stable for floor management at this time, patient is not significant tachypnea, and is not tiring out. There is no hemoptysis, and mucus is productive, patient's doing incentive spirometry, up 2 L. 01/14: Patient remains in the intensive care unit, he was intubated this morning as he was desaturating with BiPAP. He has been afebrile, heart rate 73, blood pressure 93/47, pulse ox 90%. CBC is unremarkable. D-dimer 12.04. Sodium 135, creatinine 0.82. LDH 2929, C-reactive protein 5.2. Sputum culture is in progress. He has had good urine output. Chest x-ray reveals no evident convocation from catheters. Bilateral airspace disease. 01/15: Patient remains in the intensive care intubated and on mechanical ventilation with tidal volume 450, FiO2 80, PEEP of 15. Patient has been started on norepinephrine and remains on propofol, heparin drip, Nimbex. Repeat blood work revealed unremarkable CBC. Creatinine 0.88. Capillary blood glucose running between 195 and 215. AST 126, ALT 183, alkaline phosphatase 109. Sputum culture is in progress. Repeat chest x-ray reveals correlate for pneumonia versus edema, ARDS. Patient is continued on vitamin supplements, heparin drip, dexamethasone and Baricitinib. patient remains in intensive care intubated on mechanical ventilator at FiO2 60 percent PEEP respiratory rate of 30 tidal volume 450. Continues to maintain saturations between 94-95% on the current settings. Vitals otherwise stable labs reviewed today WBC is 9.5 hemoglobin 12.4 d-dimer is elevated at 4.98. ABG obtained today suggest pH of 7.4 pO2 53 bicarb 26 on 50% FiO2. Creatinine stable at 0.78 glucose is maintained between 145-190. LDH 1564 CRP is elevated at 4. Patient's inflammatory markers trending down. Patient's vent settings increased to 80% for inadequate oxygenation. Chest x-ray reviewed showed bilateral infiltrate consistent with coronavirus associated pneumonia. Patient continues intubated on propofol 70 bike but patient examined Nimbex 1.25 g daily per minute. Patient to receive 1 dose of Lasix today. Continue to remain on baricitinib day 2 PAtient remains intubaated since . patient continues too remain on assist control, TV 450 , peep 15 and fio2 of 60 %. patient was proned for 16 hours yesterday. CXR was reviewed, COVID pneumonia but no significant change was noted, Will repeat inflammatory markers tomorrow. Vent managment per sludge filtration operator. Patient contines to remain propofol , nimbex. Continue on lovenox, baricitinib, dexamethasone and vit supplement REVIEW OF SYSTEMS Unable to obtain due to intubation PHYSICAL EXAMINATION Gen: This is a 55-year-old male. He is resting in ICU bed, intubated and on mechanical ventilation, appears to be comfortable. Full examination deferred to the intensive is due to intubation and Covid 19. ASSESSMENT AND PLAN 1. Acute hypoxic respiratory failure secondary to Covid 19 pneumonia non- vaccinated individual. Patient required intubation 01/14. Patient started on Remdesivir was discontinued by pulmonary, on January 12 started on baricinib 4 mg daily , heparin drip, dexamethasone 6 mg daily and vitamin supplements, consult with pulmonary medicine. 2. History of bilateral pulmonary emboli and DVT in 2015. CTA negative for PE. Not on chronic anticoagulation, patient started on heparin drip 3. Generalized osteoarthritis. 4. Degenerative changes in the cervical spine status post fusion of C5-6. 5. GI prophylaxis. Protonix. 6. DVT prophylaxis. Lovenox. DISCHARGE PLAN Home. vs IP rehab . will expect to stay here for covid protracted length of time Objective - Vital Signs Vital signs: Vital Signs Temp 98.5 F 01/17/21 04:00 Pulse 69 01/17/21 06:00 Resp 30 H 01/17/21 06:00 BP 99/6 01/16/21 19:30 Pulse Ox 95 01/17/21 06:00 Intake & Output 01/16/21 01/16/21 01/17/21 06:59 18:59 06:59 Intake Total 2759.211 1615.05 1356.068 Output Total 1055 3400 975 Balance 1704.211 -1784.95 381.068 Weight 111.6 kg 111.6 kg Intake: IV 1560 440 240 Sodium Chloride 0.9% 1, 1560 440 240 000 ml @ 20 mls/hr IV . Q24H [facility] Rx#:[id number] Intake, IV Titration 847.211 634.05 706.068 Amount Cisatracurium 200 mg In 106.92 135.3 Sodium Chloride 0.9% 180 ml @ 1 MCG/KG/MIN 6.6 mls /hr IV .Q24H [facility] Rx#: [id number] Heparin Sod,Pork in 0.45% 249.432 136.4 71.5 NaCl 25,000 unit In 0.45 % NaCl 1 250ml.bag @ 18 UNITS/KG/HR 19.8 mls/hr IV .[id number] BRADY Rx#: [id number] Norepinephrine 8 mg In 4.152 Sodium Chloride 0.9% 250 ml @ 0.02 MCG/KG/MIN 4. 257 mls/hr IV .Q24H [facility]ADY Rx#:[id number] propofoL 1,000 mg In 486.707 497.65 499.268 Empty Bag 1 bag @ Titrate IV .Q0M [facility]Y Rx#: [id number] Tube Feeding 262 171 140 Other 90 370 270 Output: Urine 1055 3400 975 Other: Voiding Method Indwelling Catheter Indwelling Catheter Indwelling Catheter # Bowel Movements 1 ABP, PAP, CO, CI - Last Documented Arterial Blood Pressure 104/59 - Labs CBC & Chem 7: 01/17/21 05:10 01/17/21 05:10 Labs: Abnormal Lab Results - Last 24 Hours (Table) 01/16/21 01/16/21 01/16/21 Range/Units 05:00 12:15 12:19 RBC (4.30-5.90) m/uL Hgb (13.0-17.5) gm/dL Hct (39.0-53.0) % Neutrophils # (1.3-7.7) k/uL Lymphocytes # (1.0-4.8) k/uL APTT 56.1 H (22.0-30.0) sec Chloride 111 H (98-107) mmol/L Glucose 159 H (74-99) mg/dL POC Glucose (mg/dL) 190 H (75-99) mg/dL Calcium 7.9 L (8.4-10.2) mg/dL C-Reactive Protein 4.0 H (<1.0) mg/dL 01/16/21 01/16/21 01/17/21 Range/Units 17:16 23:52 05:10 RBC 4.07 L (4.30-5.90) m/uL Hgb 12.6 L (13.0-17.5) gm/dL Hct 37.3 L (39.0-53.0) % Neutrophils # 7.8 H (1.3-7.7) k/uL Lymphocytes # 0.9 L (1.0-4.8) k/uL APTT (22.0-30.0) sec Chloride (98-107) mmol/L Glucose (74-99) mg/dL POC Glucose (mg/dL) 196 H 147 H (75-99) mg/dL Calcium (8.4-10.2) mg/dL C-Reactive Protein (<1.0) mg/dL 01/17/21 Range/Units 05:23 RBC (4.30-5.90) m/uL Hgb (13.0-17.5) gm/dL Hct (39.0-53.0) % Neutrophils # (1.3-7.7) k/uL Lymphocytes # (1.0-4.8) k/uL APTT (22.0-30.0) sec Chloride (98-107) mmol/L Glucose (74-99) mg/dL POC Glucose (mg/dL) 126 H (75-99) mg/dL Calcium (8.4-10.2) mg/dL C-Reactive Protein (<1.0) mg/dL Microbiology - Last 24 Hours (Table) 01/14/21 09:40 Gram Stain - Preliminary Sputum Sputum Culture - Preliminary Aspergillus species
[2021-01-18 00:23] LABS: Glucose,Whole Blood 153 mg/dL (75-99)
[2021-01-18] MEDS: INSULIN ASPART (NovoLOG) 100 UNIT/ML VIAL SQ SCH ×4 (00:26→17:59)
[2021-01-18] MEDS: HYDROmorphone 1 MG/ML 1 ML SYRINGE IVP PRN (00:28)
[2021-01-18] MEDS: ARTIFICIAL TEARS-HYPROMELLOSE DROPS 15 ML BTL BOTH EYES SCH ×6 (00:29→21:55)
[2021-01-18] MEDS: HEPARIN SOD,PORK IN 0.45% NACL 25,000 UNIT in 0.45% NACL 1 250ML.BAG IV SCH ×2 (00:43→12:14)
[2021-01-18] MEDS: CISATRACURIUM 200 MG in SODIUM CHLORIDE 0.9% 180 ML IV SCH ×2 (04:24→14:14)
[2021-01-18 04:35] LABS: Basophils % (A) 0 %; Eosinophils # (A) 0.2 k/uL (0-0.7); Eosinophils % (A) 2 %; HCT 36.6 % (39.0-53.0); HGB 12.2 gm/dL (13.0-17.5); Lymphocytes # (A) 0.9 k/uL (1.0-4.8); Lymphocytes % (A) 12 %; MCH 30.2 pg (25.0-35.0); MCHC 33.2 g/dL (31.0-37.0); MCV 91.1 fL (80.0-100.0); Mean Platelet Volume 8.5; Monocytes # (A) 0.3 k/uL (0-1.0); Monocytes % (A) 4 %; Neutrophils # (A) 6.3 k/uL (1.3-7.7); Neutrophils % (A) 81 %; Platelet Count 249 k/uL (150-450); RBC 4.02 m/uL (4.30-5.90); RDW 13.4 % (11.5-15.5); WBC 7.7 k/uL (3.8-10.6)
[2021-01-18 05:28] LABS: ALT 244 U/L (4-49); AST 100 U/L (17-59); African American GFR (CKD) >90 (>60 ml/min/1.73 sqM); Albumin 2.6 g/dL (3.5-5.0); Alkaline Phosphatase 100 U/L (38-126); Anion Gap 4 mmol/L; Blood Urea Nitrogen 20 mg/dL (9-20); Calcium 8.4 mg/dL (8.4-10.2); Carbon Dioxide 31 mmol/L (22-30); Chloride 103 mmol/L (98-107); Glucose 129 mg/dL (74-99); Non-African American GFR(CKD) >90 (>60 ml/min/1.73 sqM); Sodium 138 mmol/L (137-145); Total Bilirubin 0.5 mg/dL (0.2-1.3); Total Protein 5.1 g/dL (6.3-8.2)
[2021-01-18 06:09] LABS: ABG Base Excess 8.9 mmol/L; ABG HCO3 32 mmol/L (21-25); ABG Oxygen Saturation 97.7 % (94-97); ABG PCO2 44 mmHg (35-45); ABG PH 7.48 (7.35-7.45); ABG PO2 88 mmHg (83-108); ABG TCO2 34 mmol/L (19-24); Allen Test Performed? Yes
--- NOTE | 2021-01-18 08:21 | XR ---
EXAMINATION TYPE: XR chest 1V portable DATE OF EXAM: 01/18/2021 COMPARISON: Chest x-ray 01/17/2021 HISTORY: Intubated TECHNIQUE: Single frontal view of the chest is obtained. FINDINGS: Endotracheal tube, NG tube, left subclavian central venous catheter are overlying appropri ate positions. There is no evident pneumothorax or pleural effusion. Bilateral airspace disease is pr esent. Cardiac mediastinal silhouette is unchanged. IMPRESSION: Correlate for pneumonia, ARDS
[2021-01-18] MEDS: DEXAMETHASONE SOD PHOSPHATE 10 MG/ML 1 ML VIAL IVP SCH (08:25)
[2021-01-18] MEDS: ZINC SULFATE 220 MG CAP PO SCH (08:25)
[2021-01-18] MEDS: CHOLECALCIFEROL 25 MCG (1000 IU) TABLET PO SCH (08:25)
[2021-01-18] MEDS: CHLORHEXIDINE GLUCONATE 15 ML CUP MUCOUS MEM SCH ×2 (08:25→21:55)
[2021-01-18] MEDS: ASCORBIC ACID 500 MG TAB PO SCH (08:25)
[2021-01-18 11:29] LABS: Glucose,Whole Blood 179 mg/dL (75-99)
[2021-01-18] MEDS: LACTULOSE 20 GM/30 ML CUP PO SCH ×3 (12:13→22:00)
[2021-01-18] MEDS: BARICITINIB 2 MG TABLET PO SCH (14:14)
[2021-01-18] MEDS: SODIUM CHLORIDE 0.9% 1,000 ML IV SCH (14:18)
--- NOTE | 2021-01-18 14:47 | P.PN ---
Subjective Progress Note Date: 01/18/21 Principal diagnosis: Coronavirus associated pneumonia. COVID-19 pneumonia 55-year-old male patient of Dr. Palm, with a past medical history of bilateral pulmonary emboli, and left leg DVT, migraine headaches, hiatal hernia, inguinal hernias, osteoarthritis with previous history of right shoulder arthroscopy, cervical fusion, nonsmoker, who came into the emergency department on 01/11/2021 for evaluation of shortness of breath, fatigue, cough, fever. His symptoms started on Thursday01/11/2021 and became progressive. Patient is not vaccinated against COVID-19. Chest x-ray today shows patchy bilateral airspace disease especially in the mid and lower lungs. COVID-19 PCR was negative, his white count is 6.1, hemoglobin is 16.8, platelet count is 128, lymphocyte count is 0.9, d-dimer is 0.82, coagulation profile was within normal limits, sodium is 131, the rest of electrolytes are within normal limits, troponin was less than 0.012, LFTs were within normal limits, lactic acid was 1.1. CT angiogram of the chest showed suboptimal study without central acute pulmonary embolism, and bilateral multifocal and confluent groundglass opacities right greater than left and greater in the lower lungs consistent with history of COVID-19 infection. Pulse ox was 85%, patient was febrile on presentation with a temp of 101.1F, he was placed on 3 L of supplemental oxygen, he is awake and alert, does not appear to be in any acute distress, he is ambulating, and does have exertional dyspnea but no acute distress. He was started on Decadron 10 mg IV push 1, prophyla ctic Lovenox, and multivitamins The patient is seen today 01/12/2021 in follow-up on the regular medical floor. He is currently sitting up in a chair at the bedside. His oxygen requirements to go up. He is currently on a 15 L nonrebreather mask with O2 saturation 91%. He was on 4 L yesterday. He is having more shortness of breath. 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 D-dimer 0.84. LDH 684. C-reactive protein 7.0. He is on day #2 of Remdesivir. He remains on Decadron, Lovenox, vitamin supplements. 0.9 normal saline at 130 ML's per hour. The patient is seen today 01/13/2021 in follow-up on the regular medical floor. He is currently sitting up in a chair at the bedside. Awake and alert. He did have some issues with worsening shortness of breath on minimal exertion. He is on the AirVo high flow oxygen at 4 L and 90% FiO2 plus a nonrebreather mask to maintain O2 saturations in the high 80s and low 90s. He's been afebrile. Hemodynamically stable. White count 8.8. Hemoglobin 13.9. Lymphocytes 0.9. Sodium 137. Potassium 4.1. Creatinine 0.4. He is continued on Baricitinib, Decadron, Lovenox, vitamin supplements. Progress note dated 01/14/2021. This morning, the patient was on BiPAP, with settings of 14/6 and 100%. He change IPAP of 14-16. The patient's getting saline at 130 mL an hour, and Precedex at 0.4 mcg/kg/h. I did speak to the patient about the possibility of intubation and mechanical ventilation. The patient was also placed on IV heparin, given his prior history of DVT and pulmonary embolism. White count 7.4, hemoglobin 14.4, hematocrit 43.8, platelet count 165,000. D-dimer was 12.04. Sodium 135, potassium 4.7, chlorides 107, CO2 23, anion gap 5, BUN 24, and creatinine 0.82. LDH was 2929. C-reactive protein was 5.2. The patient's chest x-ray shows diffuse bilateral infiltrates. This patient was admitted to the hospital on January 11, and moved to the intensive care unit on January 13 for worsening hypoxemic respiratory failure. Progress note dated 01/15/2021. Yesterday, the patient was intubated and mechanically ventilated, after developing worsening hypoxemic respiratory failure. A central line was placed, as well as an art line. The patient remains on mechanical ventilator. Currently, he's on the volume assist control mode, rate 26, tidal volume 450, FiO2 100%, and PEEP of 15. Arterial blood gases show a PaO2 of 129, pCO2 58, and a pH is 7.24. With that, the rate is increased to 30 breaths per minute, and the FiO2 was reduced down to 80%. The patient remains on propofol, at 50 mcg/kg/m, Nimbex, at 2 mcg/kg/m, and norepinephrine at 0.03 mcg/kg/m. The patient's also getting saline at 130 mL an hour, IV heparin, and vital, at 23 mL an hour, which is goal. White count 9.5, hemoglobin 13.4, hematocrit 42.3, and platelet count 205,000. PTT is 119. Sodium 140, potassium 4.9, chlorides 111, CO2 25, anion gap 4, BUN 20, creatinine 0.88. The patient's albumin was 2.7. AST was 126 with an ALT of 183. The patient's chest x-ray is consistent with d iffuse bilateral infiltrates, consistent with coronavirus associated pneumonia, and acute respiratory distress syndrome. Progress note dated 01/16/2021. 55-year-old male, with coronavirus associated pneumonia. The patient was intubated and mechanically ventilated on January 14 for worsening hypoxemic respiratory failure. He remains on the ventilator. The patient is on the volume assist control mode, rate 30, tidal volume 450, FiO2 80%, PEEP of 15. Arterial blood gases show pO2 of 53, pCO2 43, and a pH is 7.39. Those blood gases were done on 50%, and subsequent currently, he was increased up to 80%. I've reduced him back down to 60%. In addition, the patient's getting saline at 130 mL an hour, which will be reduced down to KVO, heparin, via weightbase protocol, propofol, at 70 mcg/kg/m, Nimbex at 1.25 mcg/kg/m vital 1.2 at 23 mL an hour, which is goal, and norepinephrine, which is been weaned off recently. White count 9.5, hemoglobin 12.4, hematocrit 38.5, platelet count 199,000. PTT is 40.9, d-dimer is 4.98. Electrolytes, for some reason were not drawn. Chest x-ray shows diffuse bilateral infiltrates, consistent with coronavirus associated pneumonia. Progress note dated 01/17/2021. 55-year-old male, with coronavirus pneumonia. The patient was intubated and mechanically ventilated on January 14 for worsening hypoxemic respiratory failure. The patient remains on mechanical ventilator. He is on the volume assist control mode, rate 30, tidal volume 450, FiO2 60%, and PEEP of 15. Blood gases show a PaO2 of 79, CO2 53, and pH 7.35. The patient remains on Nimbex at 2.25 mcg/kg/m, a fall at 70 mcg/kg/m, heparin via weightbase protocol, saline at 20 mL an hour, and vital AF at 14, which is goal. The patient was prolonged for 16 hours yesterday. The patient does have a cuff leak on its endotracheal tube. We'll have anesthesia take a look at it. The 2 may need to be replaced. White count 9.2, he will been 12.6, hematocrit 37.3, and platelet count 340,000. PTT is 48.4. Sodium 135, potassium 4.1, chlorides 104, CO2 27, anion gap 4, BUN 20, with a creatinine 0.73. Albumin is 2.5. Chest x-ray shows diffuse bilateral infiltrates consistent with coronavirus pneumonia. Progress note dated 01/18/2021. 55-year-old male, with coronavirus pneumonia. The patient was placed on the mechanical ventilator on January 14, for worsening hypoxemic respiratory failure. He remains on the ventilator. The patient is on the volume assist control mode, rate 30, tidal volume 450, FiO2 55%, and PEEP 15. Blood gases show pO2 of 88, pCO2 of 44, and a pH is 7.48. These blood gases were done actually on 60%. The patient remains on heparin via weightbase protocol, propofol at 70 mcg/kg/m, Nimbex at 2.25 mcg/kg/m, vital AF at 14 mL an hour which is goal. The patient was proned again for 16 hours. White count 7.7, hemoglobin 12.2, hematocrit 36.6, and platelet count 2 49,000. Sodium 138, potassium 4, chlorides 103, CO2 31, anion gap 4, BUN 20, and creatinine 0.73. Chest x-ray shows diffuse bilateral infiltrates, consistent with acute respiratory distress syndrome. Objective - Vital Signs Vital signs: Vital Signs Temp 99.3 F 01/18/21 04:00 Pulse 73 01/18/21 12:00 Resp 30 H 01/18/21 12:00 BP 99/63 01/18/21 10:00 Pulse Ox 93 L 01/18/21 12:00 Intake & Output 01/17/21 01/18/21 01/18/21 18:59 06:59 18:59 Intake Total 5547.478 2276.260 606.983 Output Total 1080 1975 850 Balance 770.993 -440.740 -243.017 Weight 111.2 kg Intake: IV 240 240 20 Sodium Chloride 0.9% 1, 240 240 20 000 ml @ 20 mls/hr IV . Q24H [facility]AD[facility] Rx#:[id number] Intake, IV Titration 882.993 794.260 572.983 Amount Cisatracurium 200 mg In 155.293 186.368 146.025 Sodium Chloride 0.9% 180 ml @ 1 MCG/KG/MIN 6.6 mls /hr IV .Q24H [facility] Rx#: [id number] Heparin Sod,Pork in 0.45% 242.55 243.65 206.958 NaCl 25,000 unit In 0.45 % NaCl 1 250ml.bag @ 18 UNITS/KG/HR 19.8 mls/hr IV .[id number] [facility]AD[facility] Rx#: [id number] Sodium Chloride 0.9% 1, 20 000 ml @ 20 mls/hr IV . Q24H [facility] Rx#:[id number] propofoL 1,000 mg In 485.150 364.242 200 Empty Bag 1 bag @ Titrate IV .Q0M [facility] Rx#: [id number] Tube Feeding 168 140 14 Other 560 360 Output: Urine 1080 1975 850 Other: Voiding Method Indwelling Catheter Indwelling Catheter Indwelling Catheter ABP, PAP, CO, CI - Last Documented Arterial Blood Pressure 108/48 - Exam No acute distress, sedated and paralyzed, with an orally placed endotracheal tube and NG tube. HEENT examination is grossly unremarkable. Neck supple. Full range of motion. No adenopathy thyromegaly or neck vein distention. Cardiovascular examination reveals regular rhythm rate. S1-S2 normal. No S3 or S4. No discernible murmur noted. Heart sounds are distant. Heart rate 73 bpm. Lungs reveal diffuse bilateral coarse rhonchi. Diffuse bilateral crackles. Breath sounds equal bilaterally. Breath sounds are unchanged. Saturations are 93%. Abdomen soft bowel sounds are heard. No masses or tenderness. Extremities are intact. No cyanosis clubbing or edema. Skin is without rash or lesion. Neurologic examination cannot be adequately assessed given the fact the patient is sedated and paralyzed. - Labs CBC & Chem 7: 11/26/21 04:15 01/18/21 04:15 Labs: Abnormal Lab Results - Last 24 Hours (Table) 01/17/21 01/18/21 01/18/21 Range/Units 17:40 00:21 04:15 RBC 4.02 L (4.30-5.90) m/uL Hgb 12.2 L (13.0-17.5) gm/dL Hct 36.6 L (39.0-53.0) % Lymphocytes # 0.9 L (1.0-4.8) k/uL APTT (22.0-30.0) sec ABG pH (7.35-7.45) ABG HCO3 (21-25) mmol/L ABG Total CO2 (19-24) mmol/L ABG O2 Saturation (94-97) % Carbon Dioxide (22-30) mmol/L Glucose (74-99) mg/dL POC Glucose (mg/dL) 174 H 153 H (75-99) mg/dL AST (17-59) U/L ALT (4-49) U/L Total Protein (6.3-8.2) g/dL Albumin (3.5-5.0) g/dL 01/18/21 01/18/21 01/18/21 Range/Units 04:15 06:08 06:23 RBC (4.30-5.90) m/uL Hgb (13.0-17.5) gm/dL Hct (39.0-53.0) % Lymphocytes # (1.0-4.8) k/uL APTT 34.2 H (22.0-30.0) sec ABG pH 7.48 H (7.35-7.45) ABG HCO3 32 H (21-25) mmol/L ABG Total CO2 34 H (19-24) mmol/L ABG O2 Saturation 97.7 H (94-97) % Carbon Dioxide 31 H (22-30) mmol/L Glucose 129 H (74-99) mg/dL POC Glucose (mg/dL) (75-99) mg/dL AST 100 H (17-59) U/L ALT 244 H (4-49) U/L Total Protein 5.1 L (6.3-8.2) g/dL Albumin 2.6 L (3.5-5.0) g/dL 01/18/21 Range/Units 11:27 RBC (4.30-5.90) m/uL Hgb (13.0-17.5) gm/dL Hct (39.0-53.0) % Lymphocytes # (1.0-4.8) k/uL APTT (22.0-30.0) sec ABG pH (7.35-7.45) ABG HCO3 (21-25) mmol/L ABG Total CO2 (19-24) mmol/L ABG O2 Saturation (94-97) % Carbon Dioxide (22-30) mmol/L Glucose (74-99) mg/dL POC Glucose (mg/dL) 179 H (75-99) mg/dL AST (17-59) U/L ALT (4-49) U/L Total Protein (6.3-8.2) g/dL Albumin (3.5-5.0) g/dL Microbiology - Last 24 Hours (Table) 01/14/21 09:40 Gram Stain - Final Sputum Sputum Culture - Final Aspergillus fumigatus Assessment and Plan Assessment: Acute hypoxemic respiratory failure secondary to coronavirus associated pneumonia, with intubation and mechanical ventilation, initiated on January 14, for worsening hypoxemia. Acute respiratory distress syndrome (ARDS), secondary to coronavirus associated pneumonia. Previous history of bilateral pulmonary emboli, and left leg DVT, 2015, currently on IV heparin empirically. History of osteoarthritis. No prior history of tobacco use. Plan: Plan dated 01/14/2021. Currently, the patient's on appropriate medication. I did tell the patient, that he may require intubation and mechanical ventilation. Currently, he looks so good despite being on BiPAP, the patient will try to ride it out a bit longer. Should he fatigue, or should his saturations drop, we will do an elective intubation and mechanical ventilation. Will likely need an art line and a central line. Labs are reviewed. Prognosis is guarded. We will continue to follow make recommendations where appropriate. Plan dated 01/15/2021. Yesterday, the patient developed worsening hypoxemic respiratory failure, and was intubated. The patient remains on vitamin C, vitamin D3, and zinc. In addition, the patient is being sedated with, and paralyzed with Nimbex. The patient is getting Dilaudid when necessary. The patient remains on IV heparin, and Decadron. The patient is also getting BASHIR. Obviously, the patient is very critically ill, and we will continue to follow the patient and make recommendations were appropriate. Prognosis is guarded. Plan dated 01/16/2021. The patient remains on the mechanical ventilator. We have been able to wean off the norepinephrine. Remains on propofol, and Nimbex. He is getting tube feeds at goal. The patient gets Lasix 40 mg IV push. We will attempt to prone the patient for 16 hours. The FiO2 was changed to 60%. We will continue to follow make recommendations where appropriate. Prognosis is guarded. In addition to vitamins, and Decadron, he remains on BASHIR. Plan dated 01/17/2021. The patient is not quite ready to come off the ventilator. He still requiring 6% FiO2, and PEEP of 15. The patient has shown some improvement since he was intubated a couple days ago. He remains on IV heparin, propofol, and paralysis with Nimbex. The patient was proned for 16 hours yesterday. His endotracheal tube may need to be changed. He remains on vital AF. We will continue to follow and make recommendations were appropriate. Prognosis is certainly guarded. He remains on vitamin C, vitamin D3, zinc, Decadron, and BASHIR. Plan dated 01/18/2021. The patient remains on the mechanical ventilator. He remains on heparin, propofol, Nimbex, and tube feeds. The patient's oxygenation has improved a bit, and once he hits an FiO2 of 50% or less, we will be able to start weaning down the PEEP. Patient remains on vitamin C, vitamin D3, zinc, Decadron, and BASHIR. We will continue to follow make recommendations where appropriate. The patient remains on BASHIR. Time with Patient: Greater than 30
[2021-01-18] MEDS: HEPARIN SODIUM 1,000 UN/ML (10ML VL) IV PRN (16:24)
--- NOTE | 2021-01-18 17:17 | P.PN ---
Subjective Progress Note Date: 01/18/21 HISTORY OF PRESENT ILLNESS This is a 55-year-old male patient of Dr. 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 Patient states he has not been feeling well since Thursday. He said shortness of breath cough is nonproductive along with fever and chills, exertional dyspnea. He denies having any nausea vomiting or diarrhea. He denies any close contacts to known Covid people. He states his temperature is been up to 102.7 at home. He is not vaccinated. Patient presented to [facility] emergency center and found to be febrile at 101.1, heart rate 90, blood pressure 122/80, pulse ox 85% on room air. CBC revealed platelet count of 128. D-dimer 0.82. Sodium 131 otherwise electrolytes and renal function were normal. Blood sugar 147. Troponin negative. Coronavirus PCR positive. Chest x-ray reveals patchy bilateral airspace disease especially in the mid and lower lungs. Correlate for multifocal pneumonia including Covid 19 pneumonia. CTA of the chest was suboptimal study without central acute pulmonary embolism. Bilateral multifocal and confluent groundglass opacities right greater than left and greater in the lower lungs consistent with known Covid 19 infection. Patient is seen today in the emergency center waiting for bed on the [facility] floor, started on Remdesivir, Lovenox, dexamethasone and vitamin supplements, consult with pulmonary medicine. 01/12: Patient is comfortable, however he requires 40 L of oxygen via airvo sats 88-89%, he feels better today compared to his nonrebreather mask yesterday, patient did not sleep well, patient does not have any cough, however he does have shortness of breath. Patient denies any aspiration, appetite is still marginal, patient has insomnia vitals, blood sugar currently is 243, creatinine of 0.98, d-dimer is 0.84, CRP is elevated, LDH is elevated, venous Doppler, shows chronic DVT, left popliteal, in the posterior tibial veins, without any obstruction of flow. No acute DVT identified CTA, shows suboptimal, without central acute pulmonary emboli, has bilateral multifocal and confluent groundglass opacities, right greater than left, lower lobe, consistent with COVID-19 infection and remdesivir discontinued by pulmonary today and is outside of the window for remdesivir 01/13: Patient is on aerosol 14 L, with nonrebreather mask, 15 L, hypoxemia n oted on 88%, worse with coughing, however his nonrebreather mask is very loose. Nurse is worriedwith the turn of events, and requested an ICU transfer, Dr. Canales has seen the patient, and is stable for floor management at this time, patient is not significant tachypnea, and is not tiring out. There is no hemoptysis, and mucus is productive, patient's doing incentive spirometry, up 2 L. 01/14: Patient remains in the intensive care unit, he was intubated this morning as he was desaturating with BiPAP. He has been afebrile, heart rate 73, blood pressure 93/47, pulse ox 90%. CBC is unremarkable. D-dimer 12.04. Sodium 135, creatinine 0.82. LDH 2929, C-reactive protein 5.2. Sputum culture is in progress. He has had good urine output. Chest x-ray reveals no evident convocation from catheters. Bilateral airspace disease. 01/15: Patient remains in the intensive care intubated and on mechanical ventilation with tidal volume 450, FiO2 80, PEEP of 15. Patient has been started on norepinephrine and remains on propofol, heparin drip, Nimbex. Repeat blood work revealed unremarkable CBC. Creatinine 0.88. Capillary blood glucose running between 195 and 215. AST 126, ALT 183, alkaline phosphatase 109. Sputum culture is in progress. Repeat chest x-ray reveals correlate for pneumonia versus edema, ARDS. Patient is continued on vitamin supplements, heparin drip, dexamethasone and Baricitinib. patient remains in intensive care intubated on mechanical ventilator at FiO2 60 percent PEEP respiratory rate of 30 tidal volume 450. Continues to maintain saturations between 94-95% on the current settings. Vitals otherwise stable labs reviewed today WBC is 9.5 hemoglobin 12.4 d-dimer is elevated at 4.98. ABG obtained today suggest pH of 7.4 pO2 53 bicarb 26 on 50% FiO2. Creatinine stable at 0.78 glucose is maintained between 145-190. LDH 1564 CRP is elevated at 4. Patient's inflammatory markers trending down. Patient's vent settings increased to 80% for inadequate oxygenation. Chest x-ray reviewed showed bilateral infiltrate consistent with coronavirus associated pneumonia. Patient continues intubated on propofol 70 bike but patient examined Nimbex 1.25 g daily per minute. Patient to receive 1 dose of Lasix today. Continue to remain on baricitinib day 2 PAtient remains intubaated since . patient continues too remain on assist control, TV 450 , peep 15 and fio2 of 60 %. patient was proned for 16 hours yesterday. CXR was reviewed, COVID pneumonia but no significant change was noted, Will repeat inflammatory markers tomorrow. Vent managment per air crew supervisor. Patient contines to remain propofol , nimbex. Continue on lovenox, baricitinib, dexamethasone and vit supplement 01/18 patient continues to remain intubated. Covid pneumonia. Is currently on assist control respiratory rate of 30 tidal volume 450 FiO2 of 55% and PEEP of 15. She is currently on heparin drip, propofol and Nimbex. Patient continues to tolerate prone positioning 16 hours overnight. Continues to receive dexamethasone, vitamin supplement, anticoagulation with heparin, baricitinib. Labs are reviewed patient has a hemoglobin stable at 12.2. This morning pH 7.48 PCO2 44 bicarb 32 creatinine 0.73 AST 100 chest x-ray done this morning suggestive of ARDS and pneumonia REVIEW OF SYSTEMS Unable to obtain due to intubation PHYSICAL EXAMINATION Gen: This is a 55-year-old male. He is resting in ICU bed, intubated and on mechanical ventilation, appears to be comfortable. Full examination deferred to the intensive is due to intubation and Covid 19. ASSESSMENT AND PLAN 1. Acute hypoxic respiratory failure secondary to Covid 19 pneumonia non- vaccinated individual. Patient required intubation 01/14. Patient started on Remdesivir was discontinued by pulmonary, on January 12 started on baricinib 4 mg daily , heparin drip, dexamethasone 6 mg daily and vitamin supplements, consult with pulmonary medicine. 2. History of bilateral pulmonary emboli and DVT in 2016. CTA negative for PE. Not on chronic anticoagulation, patient started on heparin drip 3. Generalized osteoarthritis. 4. Degenerative changes in the cervical spine status post fusion of C5-6. 5. GI prophylaxis. Protonix. 6. DVT prophylaxis. Lovenox. DISCHARGE PLAN Home. vs IP rehab . will expect to stay here for covid protracted length of time Objective - Vital Signs Vital signs: Vital Signs Temp 99.3 F 01/18/21 04:00 Pulse 74 11/26/21 09:00 Resp 30 H 01/18/21 09:00 BP 99/63 01/18/21 09:00 Pulse Ox 94 L 01/18/21 09:00 Intake & Output 01/17/21 01/18/21 01/18/21 18:59 06:59 18:59 Intake Total 8883.192 2819.260 254.175 Output Total 1080 1975 375 Balance 770.993 -440.740 -120.825 Weight 111.2 kg Intake: IV 240 240 20 Sodium Chloride 0.9% 1, 240 240 20 000 ml @ 20 mls/hr IV . Q24H [facility] Rx#:[id number] Intake, IV Titration 882.993 794.260 220.175 Amount Cisatracurium 200 mg In 155.293 186.368 Sodium Chloride 0.9% 180 ml @ 1 MCG/KG/MIN 6.6 mls /hr IV .Q24H [facility]AD[facility] Rx#: [id number] Heparin Sod,Pork in 0.45% 242.55 243.65 120.175 NaCl 25,000 unit In 0.45 % NaCl 1 250ml.bag @ 18 UNITS/KG/HR 19.8 mls/hr IV .[id number] BRADY Rx#: [id number] propofoL 1,000 mg In 485.150 364.242 100 Empty Bag 1 bag @ Titrate IV .Q0M BRADY Rx#: [id number] Tube Feeding 168 140 14 Other 560 360 Output: Urine 1080 1975 375 Other: Voiding Method Indwelling Catheter Indwelling Catheter Indwelling Catheter ABP, PAP, CO, CI - Last Documented Arterial Blood Pressure 112/58 - Labs CBC & Chem 7: 01/18/21 04:15 01/18/21 04:15 Labs: Abnormal Lab Results - Last 24 Hours (Table) 01/17/21 01/17/21 01/18/21 Range/Units 11:34 17:40 00:21 RBC (4.30-5.90) m/uL Hgb (13.0-17.5) gm/dL Hct (39.0-53.0) % Lymphocytes # (1.0-4.8) k/uL APTT (22.0-30.0) sec ABG pH (7.35-7.45) ABG HCO3 (21-25) mmol/L ABG Total CO2 (19-24) mmol/L ABG O2 Saturation (94-97) % Carbon Dioxide (22-30) mmol/L Glucose (74-99) mg/dL POC Glucose (mg/dL) 172 H 174 H 153 H (75-99) mg/dL AST (17-59) U/L ALT (4-49) U/L Total Protein (6.3-8.2) g/dL Albumin (3.5-5.0) g/dL 01/18/21 01/18/21 01/18/21 Range/Units 04:15 04:15 06:08 RBC 4.02 L (4.30-5.90) m/uL Hgb 12.2 L (13.0-17.5) gm/dL Hct 36.6 L (39.0-53.0) % Lymphocytes # 0.9 L (1.0-4.8) k/uL APTT (22.0-30.0) sec ABG pH 7.48 H (7.35-7.45) ABG HCO3 32 H (21-25) mmol/L ABG Total CO2 34 H (19-24) mmol/L ABG O2 Saturation 97.7 H (94-97) % Carbon Dioxide 31 H (22-30) mmol/L Glucose 129 H (74-99) mg/dL POC Glucose (mg/dL) (75-99) mg/dL AST 100 H (17-59) U/L ALT 244 H (4-49) U/L Total Protein 5.1 L (6.3-8.2) g/dL Albumin 2.6 L (3.5-5.0) g/dL 01/18/21 Range/Units 06:23 RBC (4.30-5.90) m/uL Hgb (13.0-17.5) gm/dL Hct (39.0-53.0) % Lymphocytes # (1.0-4.8) k/uL APTT 34.2 H (22.0-30.0) sec ABG pH (7.35-7.45) ABG HCO3 (21-25) mmol/L ABG Total CO2 (19-24) mmol/L ABG O2 Saturation (94-97) % Carbon Dioxide (22-30) mmol/L Glucose (74-99) mg/dL POC Glucose (mg/dL) (75-99) mg/dL AST (17-59) U/L ALT (4-49) U/L Total Protein (6.3-8.2) g/dL Albumin (3.5-5.0) g/dL Microbiology - Last 24 Hours (Table) 01/14/21 09:40 Gram Stain - Final Sputum Sputum Culture - Final Aspergillus fumigatus
[2021-01-18 17:57] LABS: Glucose,Whole Blood 186 mg/dL (75-99)
[2021-01-18] MEDS ORDERED: CISATRACURIUM 2 MG/ML 5 ML VIAL IV ONE (22:03)
[2021-01-19] MEDS: HEPARIN SOD,PORK IN 0.45% NACL 25,000 UNIT in 0.45% NACL 1 250ML.BAG IV SCH ×2 (01:13→15:00)
[2021-01-19] MEDS: ARTIFICIAL TEARS-HYPROMELLOSE DROPS 15 ML BTL BOTH EYES SCH ×6 (01:16→20:30)
[2021-01-19] MEDS: INSULIN ASPART (NovoLOG) 100 UNIT/ML VIAL SQ SCH ×4 (01:24→18:59)
[2021-01-19 01:25] LABS: Glucose,Whole Blood 115 mg/dL (75-99)
[2021-01-19] MEDS: CISATRACURIUM 200 MG in SODIUM CHLORIDE 0.9% 180 ML IV SCH ×3 (02:15→20:58)
[2021-01-19 05:43] LABS: Glucose,Whole Blood 115 mg/dL (75-99)
[2021-01-19 05:57] LABS: Basophils % (A) 0 %; Eosinophils # (A) 0.2 k/uL (0-0.7); Eosinophils % (A) 2 %; HCT 36.1 % (39.0-53.0); Lymphocytes % (A) 13 %; MCH 30.4 pg (25.0-35.0); MCHC 33.3 g/dL (31.0-37.0); MCV 91.2 fL (80.0-100.0); Mean Platelet Volume 8.8; Monocytes # (A) 0.3 k/uL (0-1.0); Monocytes % (A) 3 %; Neutrophils # (A) 6.3 k/uL (1.3-7.7); Neutrophils % (A) 80 %; Platelet Count 309 k/uL (150-450); RBC 3.95 m/uL (4.30-5.90); RDW 13.4 % (11.5-15.5); WBC 7.9 k/uL (3.8-10.6)
[2021-01-19 06:22] LABS: ABG HCO3 32 mmol/L (21-25); ABG Oxygen Saturation 95.6 % (94-97); ABG PCO2 46 mmHg (35-45); ABG PH 7.45 (7.35-7.45); ABG PO2 69 mmHg (83-108); Allen Test Performed? Yes
[2021-01-19 07:00] LABS: ALT 226 U/L (4-49); AST 80 U/L (17-59); African American GFR (CKD) >90 (>60 ml/min/1.73 sqM); Albumin 2.8 g/dL (3.5-5.0); Alkaline Phosphatase 106 U/L (38-126); Anion Gap 4 mmol/L; Blood Urea Nitrogen 23 mg/dL (9-20); Calcium 8.7 mg/dL (8.4-10.2); Carbon Dioxide 32 mmol/L (22-30); Chloride 103 mmol/L (98-107); Glucose 122 mg/dL (74-99); Non-African American GFR(CKD) >90 (>60 ml/min/1.73 sqM); Sodium 139 mmol/L (137-145); Total Bilirubin 0.7 mg/dL (0.2-1.3); Total Protein 5.8 g/dL (6.3-8.2)
--- NOTE | 2021-01-19 07:46 | XR ---
EXAMINATION TYPE: XR chest 1V portable DATE OF EXAM: 01/19/2021 CLINICAL HISTORY: Difficulty breathing progress study. TECHNIQUE: Single AP portable semiupright view of the chest is obtained. COMPARISON: Chest x-ray from one day earlier and older studies FINDINGS: Stable left subclavian central venous catheter. Stable endotracheal and orogastric tube. Bilateral multifocal mid to lower lung increased opacities redemonstrated. Findings may be slightly i mproved in the left lung but worsened in the right lung from one day earlier. Cardiac silhouette size stable and upper limits of normal. Anterior fusion plate lower cervical spine noted. IMPRESSION: Bilateral mid to lower lung opacities consistent with known covid-19 infection, slight im proved aeration in the left lung but worsening right lung opacity is identified from one day earlier.
[2021-01-19] MEDS: HYDROmorphone 1 MG/ML 1 ML SYRINGE IVP PRN ×3 (08:31→17:59)
[2021-01-19] MEDS: CHLORHEXIDINE GLUCONATE 15 ML CUP MUCOUS MEM SCH ×2 (08:31→20:30)
[2021-01-19] MEDS: LACTULOSE 20 GM/30 ML CUP PO SCH (08:31)
[2021-01-19] MEDS: ZINC SULFATE 220 MG CAP PO SCH (08:31)
[2021-01-19] MEDS: CHOLECALCIFEROL 25 MCG (1000 IU) TABLET PO SCH (08:32)
[2021-01-19] MEDS: ASCORBIC ACID 500 MG TAB PO SCH (08:33)
[2021-01-19] MEDS: DEXAMETHASONE SOD PHOSPHATE 10 MG/ML 1 ML VIAL IVP SCH (08:33)
--- NOTE | 2021-01-19 10:24 | P.PN ---
Subjective Progress Note Date: 01/19/21 On today's evaluation on 01/19/2021 patient is seen in the intensive care units, sedated and paralyzed on assist-control mode of ventilation, with a rate of 30, tidal volume was 450, FiO2 of 50% and PEEP of 15, this morning's blood gas shows pO2 of 69, pCO2 of 46, pH of 7.45, this was done on 50% FiO2 and above-mentioned ventilator settings, peak airway pressure is 33, and plateau pressure is 30. today's chest x-ray has been reviewed showing bilateral mid to lower lung opacities consistent with known COVID-19 infection, with slight improvement in aeration of the left lung however right lung opacity has worsened compared to the day earlier. Hemodynamically patient is stable, he is in sinus mechanism with a rate of 66, not requiring any pressor support, urine output and the order of 200-350 ML per hour, patient is tolerating tube feedings. Labs 7 reviewed, white blood cell count is stable at 7.9, hemoglobin is 12.0, PTT is 53.5, patient remains on heparin infusion for past history of DVT in the left leg, sodium is 139, potassium is 4.0, chloride is 103, CO2 32, BUN is 23, creatinine 0.82, AST is 80, ALT is 226, and both of those values are improved from yesterday, alkaline phosphatase at 106, last set of inflammatory markers from 01/16/2021 was showing improvement compared to the admission levels. Objective - Vital Signs Vital signs: Vital Signs Temp 98.6 F 01/19/21 04:00 Pulse 71 01/19/21 09:00 Resp 30 H 01/19/21 09:00 BP 99/63 01/18/21 14:00 Pulse Ox 91 L 01/19/21 09:00 Intake & Output 01/18/21 01/19/21 01/19/21 18:59 06:59 18:59 Intake Total 689.617 4266.800 138.983 Output Total 1985 2300 650 Balance -1100.800 -1286.200 -511.017 Weight 111.2 kg 110.5 kg Intake: IV 60 220 60 Sodium Chloride 0.9% 1, 60 220 60 000 ml @ 20 mls/hr IV . Q24H [facility] Rx#:[id number] Intake, IV Titration 810.200 793.800 78.983 Amount Cisatracurium 200 mg In 146.025 200.00 Sodium Chloride 0.9% 180 ml @ 1 MCG/KG/MIN 6.6 mls /hr IV .Q24H [facility] Rx#: [id number] Heparin Sod,Pork in 0.45% 284.175 172.783 NaCl 25,000 unit In 0.45 % NaCl 1 250ml.bag @ 18 UNITS/KG/HR 19.8 mls/hr IV .[id number] [facility] Rx#: [id number] Sodium Chloride 0.9% 1, 80 000 ml @ 20 mls/hr IV . Q24H [facility] Rx#:[id number] propofoL 1,000 mg In 300 421.017 78.983 Empty Bag 1 bag @ Titrate IV .Q0M [facility] Rx#: [id number] Tube Feeding 14 Output: Urine 1985 2300 650 Other: Voiding Method Indwelling Catheter Indwelling Catheter Indwelling Catheter ABP, PAP, CO, CI - Last Documented Arterial Blood Pressure 107/59 - Exam GENERAL EXAM: Sedated, paralyzed, 55-year-old white male, on assist-control mode of ventilation with a FiO2 of 50% and PEEP of 15 comfortable in no apparent distress. HEAD: Normocephalic/atraumatic. EYES: Normal reaction of pupils, equal size. Conjunctiva pink, sclera white. NOSE: Clear with pink turbinates. THROAT: No erythema or exudates. NECK: No masses, no JVD, no thyroid enlargement, no adenopathy. CHEST: No chest wall deformity. Symmetrical expansion. LUNGS: Equal air entry with no crackles, wheeze, rhonchi or dullness. CVS: Regular rate and rhythm, normal S1 and S2, no gallops, no murmurs, no rubs ABDOMEN: Soft, nontender. No hepatosplenomegaly, normal bowel sounds, no guarding or rigidity. EXTREMITIES: No clubbing, no edema, no cyanosis, 2+ pulses and upper and lower extremities. MUSCULOSKELETAL: Muscle strength and tone normal. SPINE: No scoliosis or deformity SKIN: No rashes CENTRAL NERVOUS SYSTEM: Sedated, and paralyzed No focal deficits, tone is normal in all 4 extremities. - Labs CBC & Chem 7: 01/19/21 05:45 01/19/21 05:45 Labs: Abnormal Lab Results - Last 24 Hours (Table) 01/18/21 01/18/21 01/18/21 Range/Units : 14:18 17:55 RBC (4.30-5.90) m/uL Hgb (13.0-17.5) gm/dL Hct (39.0-53.0) % APTT 35.9 H (22.0-30.0) sec ABG pCO2 (35-45) mmHg ABG pO2 (83-108) mmHg ABG HCO3 (21-25) mmol/L Carbon Dioxide (22-30) mmol/L BUN (9-20) mg/dL Glucose (74-99) mg/dL POC Glucose (mg/dL) 179 H 186 H (75-99) mg/dL AST (17-59) U/L ALT (4-49) U/L Total Protein (6.3-8.2) g/dL Albumin (3.5-5.0) g/dL 01/18/21 01/19/21 01/19/21 Range/Units 21:45 01:23 05:42 RBC (4.30-5.90) m/uL Hgb (13.0-17.5) gm/dL Hct (39.0-53.0) % APTT 78.3 H (22.0-30.0) sec ABG pCO2 (35-45) mmHg ABG pO2 (83-108) mmHg ABG HCO3 (21-25) mmol/L Carbon Dioxide (22-30) mmol/L BUN (9-20) mg/dL Glucose (74-99) mg/dL POC Glucose (mg/dL) 115 H 115 H (75-99) mg/dL AST (17-59) U/L ALT (4-49) U/L Total Protein (6.3-8.2) g/dL Albumin (3.5-5.0) g/dL 01/19/21 01/19/21 01/19/21 Range/Units 05:45 05:45 06:25 RBC 3.95 L (4.30-5.90) m/uL Hgb 12.0 L (13.0-17.5) gm/dL Hct 36.1 L (39.0-53.0) % APTT (22.0-30.0) sec ABG pCO2 46 H (35-45) mmHg ABG pO2 69 L (83-108) mmHg ABG HCO3 32 H (21-25) mmol/L Carbon Dioxide 32 H (22-30) mmol/L BUN 23 H (9-20) mg/dL Glucose 122 H (74-99) mg/dL POC Glucose (mg/dL) (75-99) mg/dL AST 80 H (17-59) U/L ALT 226 H (4-49) U/L Total Protein 5.8 L (6.3-8.2) g/dL Albumin 2.8 L (3.5-5.0) g/dL 01/19/21 Range/Units 07:50 RBC (4.30-5.90) m/uL Hgb (13.0-17.5) gm/dL Hct (39.0-53.0) % APTT 53.5 H (22.0-30.0) sec ABG pCO2 (35-45) mmHg ABG pO2 (83-108) mmHg ABG HCO3 (21-25) mmol/L Carbon Dioxide (22-30) mmol/L BUN (9-20) mg/dL Glucose (74-99) mg/dL POC Glucose (mg/dL) (75-99) mg/dL AST (17-59) U/L ALT (4-49) U/L Total Protein (6.3-8.2) g/dL Albumin (3.5-5.0) g/dL Microbiology - Last 24 Hours (Table) 01/14/21 09:40 Gram Stain - Final Sputum Sputum Culture - Final Aspergillus fumigatus Assessment and Plan Plan: Assessment: #1. Acute hypoxic respiratory failure related to COVID-19 pneumonia, onset of symptoms was 5 days prior to presentation. Patient is not vaccinated against COVID-19, Remdesivir started on 01/11/2021. Patient was intubated on 01/14/2021 and currently remains on assist-control mode of ventilation, FiO2 of 50% and PEEP of 15, sedated and paralyzed. Currently on Baricitinib and Decadron 6 mg daily #2. ARDS with severe hypoxic respiratory failure related to the above #3. Increased inflammatory markers related to acute COVID-19 pneumonia, improved compared to admission levels #4. Increased LFTs possibly related to a viral pneumonia, improving on today's labs #5. Previous history of bilateral pulmonary emboli and left leg DVT back in 2016, currently not on any anticoagulation on a regular basis #6. History of osteoarthritis #7. Nonsmoker Plan: Continue current vent settings Currently down to FiO2 of 50% and PEEP of 15 If remains stable and maintains stable O2 saturations we will attempt paralytic holiday today Continue Diprivan and when necessary Dilaudid for sedation Continue Baricitinib and Decadron Continue Heparin infusion for a possibility of trach and peg in the next few days Continue multivitamins including vitamin C, vitamin D and zinc Continue tube feedings and supportive treatment obtain follow up inflammatory markers, basic labs, cbc, cmp, abg, cxr in am I performed a history & physical examination of the patient and discussed their management with my nurse practitioner, Yuridia Donis. I reviewed the nurse practitioner's note and agree with the documented findings and plan of care. Lung sounds are positive for diminished breath sounds throughout the lung carter. The findings and the impression was discussed with the patient. I at test to the documentation by the nurse practitioner. Time with Patient: Greater than 30
[2021-01-19] MEDS: PANTOPRAZOLE 40 MG/10 ML VIAL IVP SCH (12:01)
[2021-01-19 12:10] LABS: Glucose,Whole Blood 208 mg/dL (75-99)
--- NOTE | 2021-01-19 13:11 | P.PN ---
Subjective Progress Note Date: 01/19/21 HISTORY OF PRESENT ILLNESS This is a 55-year-old male patient of Dr. 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 Patient states he has not been feeling well since Thursday. He said shortness of breath cough is nonproductive along with fever and chills, exertional dyspnea. He denies having any nausea vomiting or diarrhea. He denies any close contacts to known Covid people. He states his temperature is been up to 102.7 at home. He is not vaccinated. Patient presented to [facility] emergency center and found to be febrile at 101.1, heart rate 90, blood pressure 122/80, pulse ox 85% on room air. CBC revealed platelet count of 128. D-dimer 0.82. Sodium 131 otherwise electrolytes and renal function were normal. Blood sugar 147. Troponin negative. Coronavirus PCR positive. Chest x-ray reveals patchy bilateral airspace disease especially in the mid and lower lungs. Correlate for multifocal pneumonia including Covid 19 pneumonia. CTA of the chest was suboptimal study without central acute pulmonary embolism. Bilateral multifocal and confluent groundglass opacities right greater than left and greater in the lower lungs consistent with known Covid 19 infection. Patient is seen today in the emergency center waiting for bed on the [facility] floor, started on Remdesivir, Lovenox, dexamethasone and vitamin supplements, consult with pulmonary medicine. 01/12: Patient is comfortable, however he requires 40 L of oxygen via airvo sats 88-89%, he feels better today compared to his nonrebreather mask yesterday, patient did not sleep well, patient does not have any cough, however he does have shortness of breath. Patient denies any aspiration, appetite is still marginal, patient has insomnia vitals, blood sugar currently is 243, creatinine of 0.98, d-dimer is 0.84, CRP is elevated, LDH is elevated, venous Doppler, shows chronic DVT, left popliteal, in the posterior tibial veins, without any obstruction of flow. No acute DVT identified CTA, shows suboptimal, without central acute pulmonary emboli, has bilateral multifocal and confluent groundglass opacities, right greater than left, lower lobe, consistent with COVID-19 infection and remdesivir discontinued by pulmonary today and is outside of the window for remdesivir 01/13: Patient is on aerosol 14 L, with nonrebreather mask, 15 L, hypoxemia n oted on 88%, worse with coughing, however his nonrebreather mask is very loose. Nurse is worriedwith the turn of events, and requested an ICU transfer, Dr. Canales has seen the patient, and is stable for floor management at this time, patient is not significant tachypnea, and is not tiring out. There is no hemoptysis, and mucus is productive, patient's doing incentive spirometry, up 2 L. 01/14: Patient remains in the intensive care unit, he was intubated this morning as he was desaturating with BiPAP. He has been afebrile, heart rate 73, blood pressure 93/47, pulse ox 90%. CBC is unremarkable. D-dimer 12.04. Sodium 135, creatinine 0.82. LDH 2929, C-reactive protein 5.2. Sputum culture is in progress. He has had good urine output. Chest x-ray reveals no evident convocation from catheters. Bilateral airspace disease. 01/15: Patient remains in the intensive care intubated and on mechanical ventilation with tidal volume 450, FiO2 80, PEEP of 15. Patient has been started on norepinephrine and remains on propofol, heparin drip, Nimbex. Repeat blood work revealed unremarkable CBC. Creatinine 0.88. Capillary blood glucose running between 195 and 215. AST 126, ALT 183, alkaline phosphatase 109. Sputum culture is in progress. Repeat chest x-ray reveals correlate for pneumonia versus edema, ARDS. Patient is continued on vitamin supplements, heparin drip, dexamethasone and Baricitinib. patient remains in intensive care intubated on mechanical ventilator at FiO2 60 percent PEEP respiratory rate of 30 tidal volume 450. Continues to maintain saturations between 94-95% on the current settings. Vitals otherwise stable labs reviewed today WBC is 9.5 hemoglobin 12.4 d-dimer is elevated at 4.98. ABG obtained today suggest pH of 7.4 pO2 53 bicarb 26 on 50% FiO2. Creatinine stable at 0.78 glucose is maintained between 145-190. LDH 1564 CRP is elevated at 4. Patient's inflammatory markers trending down. Patient's vent settings increased to 80% for inadequate oxygenation. Chest x-ray reviewed showed bilateral infiltrate consistent with coronavirus associated pneumonia. Patient continues intubated on propofol 70 bike but patient examined Nimbex 1.25 g daily per minute. Patient to receive 1 dose of Lasix today. Continue to remain on baricitinib day 2 PAtient remains intubaated since . patient continues too remain on assist control, TV 450 , peep 15 and fio2 of 60 %. patient was proned for 16 hours yesterday. CXR was reviewed, COVID pneumonia but no significant change was noted, Will repeat inflammatory markers tomorrow. 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 Patient contines to remain propofol , nimbex. Continue on lovenox, baricitinib, dexamethasone and vit supplement 01/18 patient continues to remain intubated. Covid pneumonia. Is currently on assist control respiratory rate of 30 tidal volume 450 FiO2 of 55% and PEEP of 15. She is currently on heparin drip, propofol and Nimbex. Patient continues to tolerate prone positioning 16 hours overnight. Continues to receive dexamethasone, vitamin supplement, anticoagulation with heparin, baricitinib. Labs are reviewed patient has a hemoglobin stable at 12.2. This morning pH 7.48 PCO2 44 bicarb 32 creatinine 0.73 AST 100 chest x-ray done this morning suggestive of ARDS and pneumonia 01/19 patient continues to remain intubated currently on assist-control vent with a rate of 30 tidal volume 450 FiO2 50 and PEEP of 15. Continues to remain on propofol and Nimbex. Continue heparin drip for anticoagulation. Remains on Baricitinib , vitamin supplementation and dexamethasone. Labs reviewed hemoglobin stable at 12 PTT 53 blood gas obtained today suggest a pH of 7.45 pCO2 46 pO2 69 bicarb 32 BUN 23 creatinine 0.0.8 glucose 122 AST ED ALT 226. inflammation markers ordered for tomorrow last set was obtained on 01/12 REVIEW OF SYSTEMS Unable to obtain due to intubation PHYSICAL EXAMINATION Gen: This is a 55-year-old male. He is resting in ICU bed, intubated and on mechanical ventilation, appears to be comfortable. Full examination deferred to the intensive is due to intubation and Covid 19. ASSESSMENT AND PLAN 1. Acute hypoxic respiratory failure secondary to Covid 19 pneumonia non- vaccinated individual. Patient required intubation 01/14. Patient started on Remdesivir was discontinued by pulmonary, on January 12 started on baricinib 4 mg daily , heparin drip, dexamethasone 6 mg daily and vitamin supplements, vent care per pit worker power shovel 2. History of bilateral pulmonary emboli and DVT in 2016. CTA negative for PE. Not on chronic anticoagulation, patient started on heparin drip 3. Generalized osteoarthritis. 4. Degenerative changes in the cervical spine status post fusion of C5-6. 5. GI prophylaxis. Protonix. 6. DVT prophylaxis. Lovenox. DISCHARGE PLAN Home. vs IP rehab . will expect to stay here for covid protracted length of time Objective - Vital Signs Vital signs: Vital Signs Temp 98.6 F 01/19/21 04:00 Pulse 70 01/19/21 11:00 Resp 30 H 01/19/21 11:00 BP 99/63 01/18/21 14:00 Pulse Ox 94 L 01/19/21 11:00 Intake & Output 01/18/21 01/19/21 01/19/21 18:59 06:59 18:59 Intake Total 731.757 3905.800 478.983 Output Total 1984 2300 875 Balance -1100.800 -1286.200 -396.017 Weight 111.2 kg 110.5 kg Intake: IV 60 220 80 Sodium Chloride 0.9% 1, 60 220 80 000 ml @ 20 mls/hr IV . Q24H [facility] Rx#:[id number] Intake, IV Titration 810.200 793.800 398.983 Amount Cisatracurium 200 mg In 146.025 200.00 200 Sodium Chloride 0.9% 180 ml @ 1 MCG/KG/MIN 6.6 mls /hr IV .Q24H [facility] Rx#: [id number] Heparin Sod,Pork in 0.45% 284.175 172.783 NaCl 25,000 unit In 0.45 % NaCl 1 250ml.bag @ 18 UNITS/KG/HR 19.8 mls/hr IV .[id number] [facility] Rx#: [id number] Sodium Chloride 0.9% 1, 80 20 000 ml @ 20 mls/hr IV . Q24H [facility] Rx#:[id number] propofoL 1,000 mg In 300 421.017 178.983 Empty Bag 1 bag @ Titrate IV .Q0M [facility] Rx#: [id number] Tube Feeding 14 Output: Urine 1984 2300 875 Other: Voiding Method Indwelling Catheter Indwelling Catheter Indwelling Catheter ABP, PAP, CO, CI - Last Documented Arterial Blood Pressure 144/61 - Labs CBC & Chem 7: 01/19/21 05:45 01/19/21 05:45 Labs: Abnormal Lab Results - Last 24 Hours (Table) 01/18/21 01/18/21 01/18/21 Range/Units 14:18 17:55 21:45 RBC (4.30-5.90) m/uL Hgb (13.0-17.5) gm/dL Hct (39.0-53.0) % APTT 35.9 H 78.3 H (22.0-30.0) sec ABG pCO2 (35-45) mmHg ABG pO2 (83-108) mmHg ABG HCO3 (21-25) mmol/L Carbon Dioxide (22-30) mmol/L BUN (9-20) mg/dL Glucose (74-99) mg/dL POC Glucose (mg/dL) 186 H (75-99) mg/dL AST (17-59) U/L ALT (4-49) U/L Total Protein (6.3-8.2) g/dL Albumin (3.5-5.0) g/dL 01/19/21 01/19/21 01/19/21 Range/Units 01:23 05:42 05:45 RBC 3.95 L (4.30-5.90) m/uL Hgb 12.0 L (13.0-17.5) gm/dL Hct 36.1 L (39.0-53.0) % APTT (22.0-30.0) sec ABG pCO2 (35-45) mmHg ABG pO2 (83-108) mmHg ABG HCO3 (21-25) mmol/L Carbon Dioxide (22-30) mmol/L BUN (9-20) mg/dL Glucose (74-99) mg/dL POC Glucose (mg/dL) 115 H 115 H (75-99) mg/dL AST (17-59) U/L ALT (4-49) U/L Total Protein (6.3-8.2) g/dL Albumin (3.5-5.0) g/dL 01/19/21 01/19/21 01/19/21 Range/Units 05:45 06:25 07:50 RBC (4.30-5.90) m/uL Hgb (13.0-17.5) gm/dL Hct (39.0-53.0) % APTT 53.5 H (22.0-30.0) sec ABG pCO2 46 H (35-45) mmHg ABG pO2 69 L (83-108) mmHg ABG HCO3 32 H (21-25) mmol/L Carbon Dioxide 32 H (22-30) mmol/L BUN 23 H (9-20) mg/dL Glucose 122 H (74-99) mg/dL POC Glucose (mg/dL) (75-99) mg/dL AST 80 H (17-59) U/L ALT 226 H (4-49) U/L Total Protein 5.8 L (6.3-8.2) g/dL Albumin 2.8 L (3.5-5.0) g/dL 01/19/21 Range/Units 12:08 RBC (4.30-5.90) m/uL Hgb (13.0-17.5) gm/dL Hct (39.0-53.0) % APTT (22.0-30.0) sec ABG pCO2 (35-45) mmHg ABG pO2 (83-108) mmHg ABG HCO3 (21-25) mmol/L Carbon Dioxide (22-30) mmol/L BUN (9-20) mg/dL Glucose (74-99) mg/dL POC Glucose (mg/dL) 208 H (75-99) mg/dL AST (17-59) U/L ALT (4-49) U/L Total Protein (6.3-8.2) g/dL Albumin (3.5-5.0) g/dL Microbiology - Last 24 Hours (Table) 01/14/21 09:40 Gram Stain - Final Sputum Sputum Culture - Final Aspergillus fumigatus
[2021-01-19] MEDS: BARICITINIB 2 MG TABLET PO SCH (14:02)
[2021-01-19] MEDS: SODIUM CHLORIDE 0.9% 1,000 ML IV SCH (17:05)
[2021-01-19 19:05] LABS: Glucose,Whole Blood 129 mg/dL (75-99)
[2021-01-19 23:40] LABS: Glucose,Whole Blood 117 mg/dL (75-99)
[2021-01-20] MEDS: HEPARIN SOD,PORK IN 0.45% NACL 25,000 UNIT in 0.45% NACL 1 250ML.BAG IV SCH ×2 (01:26→12:25)
[2021-01-20] MEDS: INSULIN ASPART (NovoLOG) 100 UNIT/ML VIAL SQ SCH ×5 (01:28→23:30)
[2021-01-20] MEDS: ARTIFICIAL TEARS-HYPROMELLOSE DROPS 15 ML BTL BOTH EYES SCH ×6 (01:29→21:10)
[2021-01-20] MEDS: HYDROmorphone 1 MG/ML 1 ML SYRINGE IVP PRN ×6 (03:56→21:08)
[2021-01-20 05:43] LABS: Glucose,Whole Blood 106 mg/dL (75-99)
[2021-01-20 05:52] LABS: ABG Base Excess 7.4 mmol/L; ABG HCO3 31 mmol/L (21-25); ABG Oxygen Saturation 96.2 % (94-97); ABG PCO2 43 mmHg (35-45); ABG PH 7.47 (7.35-7.45); ABG PO2 77 mmHg (83-108); ABG TCO2 32 mmol/L (19-24); Allen Test Performed? Yes
[2021-01-20 06:03] LABS: Basophils % (A) 0 %; Eosinophils # (A) 0.2 k/uL (0-0.7); Eosinophils % (A) 3 %; HCT 34.9 % (39.0-53.0); HGB 11.7 gm/dL (13.0-17.5); Lymphocytes # (A) 1.2 k/uL (1.0-4.8); Lymphocytes % (A) 14 %; MCH 30.6 pg (25.0-35.0); MCHC 33.5 g/dL (31.0-37.0); MCV 91.1 fL (80.0-100.0); Mean Platelet Volume 8.7; Monocytes # (A) 0.4 k/uL (0-1.0); Monocytes % (A) 5 %; Neutrophils # (A) 6.2 k/uL (1.3-7.7); Neutrophils % (A) 77 %; Platelet Count 292 k/uL (150-450); RBC 3.83 m/uL (4.30-5.90); RDW 12.8 % (11.5-15.5)
[2021-01-20] MEDS: CISATRACURIUM 200 MG in SODIUM CHLORIDE 0.9% 180 ML IV SCH ×2 (06:59→14:56)
[2021-01-20 08:25] LABS: ALT 243 U/L (4-49); AST 118 U/L (17-59); African American GFR (CKD) >90 (>60 ml/min/1.73 sqM); Albumin 2.7 g/dL (3.5-5.0); Alkaline Phosphatase 120 U/L (38-126); Anion Gap 6 mmol/L; Blood Urea Nitrogen 24 mg/dL (9-20); C Reactive Protein 8.7 mg/dL (<1.0); Calcium 8.4 mg/dL (8.4-10.2); Carbon Dioxide 28 mmol/L (22-30); Chloride 103 mmol/L (98-107); Glucose 120 mg/dL (74-99); LDH 1228 U/L (313-618); Non-African American GFR(CKD) >90 (>60 ml/min/1.73 sqM); Sodium 137 mmol/L (137-145); Total Bilirubin 0.9 mg/dL (0.2-1.3); Total Protein 5.5 g/dL (6.3-8.2)
[2021-01-20] MEDS: CHOLECALCIFEROL 25 MCG (1000 IU) TABLET PO SCH (08:53)
[2021-01-20] MEDS: CHLORHEXIDINE GLUCONATE 15 ML CUP MUCOUS MEM SCH ×2 (08:53→21:08)
[2021-01-20] MEDS: PANTOPRAZOLE 40 MG/10 ML VIAL IVP SCH (08:53)
[2021-01-20] MEDS: ZINC SULFATE 220 MG CAP PO SCH (08:54)
[2021-01-20] MEDS: ASCORBIC ACID 500 MG TAB PO SCH (08:54)
[2021-01-20] MEDS: DEXAMETHASONE SOD PHOSPHATE 10 MG/ML 1 ML VIAL IVP SCH (08:55)
[2021-01-20] MEDS: LACTULOSE 20 GM/30 ML CUP PO SCH (08:55)
--- NOTE | 2021-01-20 11:29 | XR ---
EXAMINATION TYPE: XR chest 1V portable DATE OF EXAM: 01/20/2021 COMPARISON: 01/20/2020 HISTORY: 55 years Male. STUDY INDICATION GIVEN: Tube placement . TECHNIQUE: AP chest radiograph IMPRESSION: Tip of enteric tube at the level of the clavicle. Enteric tube courses into the stomach. Tip of left CVC at the superior cavoatrial junction. Bilateral airspace and interstitial opacities decreased in the interval. No pneumothorax or large effusion. No cardiomegaly. Stable osseous structures.
[2021-01-20 11:41] LABS: Glucose,Whole Blood 169 mg/dL (75-99)
[2021-01-20] MEDS: BARICITINIB 2 MG TABLET PO SCH (13:14)
--- NOTE | 2021-01-20 13:19 | P.PN ---
Subjective Progress Note Date: 01/20/21 Principal diagnosis: Coronavirus associated pneumonia. COVID-19 pneumonia 55-year-old male patient of Dr. Palm, with a past medical history of bilateral pulmonary emboli, and left leg DVT, migraine headaches, hiatal hernia, inguinal hernias, osteoarthritis with previous history of right shoulder arthroscopy, cervical fusion, nonsmoker, who came into the emergency department on 01/11/2021 for evaluation of shortness of breath, fatigue, cough, fever. His symptoms started on Thursday01/11/2021 and became progressive. Patient is not vaccinated against COVID-19. Chest x-ray today shows patchy bilateral airspace disease especially in the mid and lower lungs. COVID-19 PCR was negative, his white count is 6.1, hemoglobin is 16.8, platelet count is 128, lymphocyte count is 0.9, d-dimer is 0.82, coagulation profile was within normal limits, sodium is 131, the rest of electrolytes are within normal limits, troponin was less than 0.012, LFTs were within normal limits, lactic acid was 1.1. CT angiogram of the chest showed suboptimal study without central acute pulmonary embolism, and bilateral multifocal and confluent groundglass opacities right greater than left and greater in the lower lungs consistent with history of COVID-19 infection. Pulse ox was 85%, patient was febrile on presentation with a temp of 101.1F, he was placed on 3 L of supplemental oxygen, he is awake and alert, does not appear to be in any acute distress, he is ambulating, and does have exertional dyspnea but no acute distress. He was started on Decadron 10 mg IV push 1, prophyla ctic Lovenox, and multivitamins The patient is seen today 01/12/2021 in follow-up on the regular medical floor. He is currently sitting up in a chair at the bedside. His oxygen requirements to go up. He is currently on a 15 L nonrebreather mask with O2 saturation 91%. He was on 4 L yesterday. He is having more shortness of breath. 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 D-dimer 0.84. LDH 684. C-reactive protein 7.0. He is on day #2 of Remdesivir. He remains on Decadron, Lovenox, vitamin supplements. 0.9 normal saline at 130 ML's per hour. The patient is seen today 01/13/2021 in follow-up on the regular medical floor. He is currently sitting up in a chair at the bedside. Awake and alert. He did have some issues with worsening shortness of breath on minimal exertion. He is on the AirVo high flow oxygen at 4 L and 90% FiO2 plus a nonrebreather mask to maintain O2 saturations in the high 80s and low 90s. He's been afebrile. Hemodynamically stable. White count 8.8. Hemoglobin 13.9. Lymphocytes 0.9. Sodium 137. Potassium 4.1. Creatinine 0.4. He is continued on Baricitinib, Decadron, Lovenox, vitamin supplements. Progress note dated 01/14/2021. This morning, the patient was on BiPAP, with settings of 14/6 and 100%. He change IPAP of 14-16. The patient's getting saline at 130 mL an hour, and Precedex at 0.4 mcg/kg/h. I did speak to the patient about the possibility of intubation and mechanical ventilation. The patient was also placed on IV heparin, given his prior history of DVT and pulmonary embolism. White count 7.4, hemoglobin 14.4, hematocrit 43.8, platelet count 165,000. D-dimer was 12.04. Sodium 135, potassium 4.7, chlorides 107, CO2 23, anion gap 5, BUN 24, and creatinine 0.82. LDH was 2929. C-reactive protein was 5.2. The patient's chest x-ray shows diffuse bilateral infiltrates. This patient was admitted to the hospital on January 11, and moved to the intensive care unit on January 13 for worsening hypoxemic respiratory failure. Progress note dated 01/15/2021. Yesterday, the patient was intubated and mechanically ventilated, after developing worsening hypoxemic respiratory failure. A central line was placed, as well as an art line. The patient remains on mechanical ventilator. Currently, he's on the volume assist control mode, rate 26, tidal volume 450, FiO2 100%, and PEEP of 15. Arterial blood gases show a PaO2 of 129, pCO2 58, and a pH is 7.24. With that, the rate is increased to 30 breaths per minute, and the FiO2 was reduced down to 80%. The patient remains on propofol, at 50 mcg/kg/m, Nimbex, at 2 mcg/kg/m, and norepinephrine at 0.03 mcg/kg/m. The patient's also getting saline at 130 mL an hour, IV heparin, and vital, at 23 mL an hour, which is goal. White count 9.5, hemoglobin 13.4, hematocrit 42.3, and platelet count 205,000. PTT is 119. Sodium 140, potassium 4.9, chlorides 111, CO2 25, anion gap 4, BUN 20, creatinine 0.88. The patient's albumin was 2.7. AST was 126 with an ALT of 183. The patient's chest x-ray is consistent with d iffuse bilateral infiltrates, consistent with coronavirus associated pneumonia, and acute respiratory distress syndrome. Progress note dated 01/16/2021. 55-year-old male, with coronavirus associated pneumonia. The patient was intubated and mechanically ventilated on January 14 for worsening hypoxemic respiratory failure. He remains on the ventilator. The patient is on the volume assist control mode, rate 30, tidal volume 450, FiO2 80%, PEEP of 15. Arterial blood gases show pO2 of 53, pCO2 43, and a pH is 7.39. Those blood gases were done on 50%, and subsequent currently, he was increased up to 80%. I've reduced him back down to 60%. In addition, the patient's getting saline at 130 mL an hour, which will be reduced down to KVO, heparin, via weightbase protocol, propofol, at 70 mcg/kg/m, Nimbex at 1.25 mcg/kg/m vital 1.2 at 23 mL an hour, which is goal, and norepinephrine, which is been weaned off recently. White count 9.5, hemoglobin 12.4, hematocrit 38.5, platelet count 199,000. PTT is 40.9, d-dimer is 4.98. Electrolytes, for some reason were not drawn. Chest x-ray shows diffuse bilateral infiltrates, consistent with coronavirus associated pneumonia. Progress note dated 01/17/2021. 55-year-old male, with coronavirus pneumonia. The patient was intubated and mechanically ventilated on January 14 for worsening hypoxemic respiratory failure. The patient remains on mechanical ventilator. He is on the volume assist control mode, rate 30, tidal volume 450, FiO2 60%, and PEEP of 15. Blood gases show a PaO2 of 79, CO2 53, and pH 7.35. The patient remains on Nimbex at 2.25 mcg/kg/m, a fall at 70 mcg/kg/m, heparin via weightbase protocol, saline at 20 mL an hour, and vital AF at 14, which is goal. The patient was prolonged for 16 hours yesterday. The patient does have a cuff leak on its endotracheal tube. We'll have anesthesia take a look at it. The 2 may need to be replaced. White count 9.2, he will been 12.6, hematocrit 37.3, and platelet count 340,000. PTT is 48.4. Sodium 135, potassium 4.1, chlorides 104, CO2 27, anion gap 4, BUN 20, with a creatinine 0.73. Albumin is 2.5. Chest x-ray shows diffuse bilateral infiltrates consistent with coronavirus pneumonia. Progress note dated 01/18/2021. 55-year-old male, with coronavirus pneumonia. The patient was placed on the mechanical ventilator on January 14, for worsening hypoxemic respiratory failure. He remains on the ventilator. The patient is on the volume assist control mode, rate 30, tidal volume 450, FiO2 55%, and PEEP 15. Blood gases show pO2 of 88, pCO2 of 44, and a pH is 7.48. These blood gases were done actually on 60%. The patient remains on heparin via weightbase protocol, propofol at 70 mcg/kg/m, Nimbex at 2.25 mcg/kg/m, vital AF at 14 mL an hour which is goal. The patient was proned again for 16 hours. White count 7.7, hemoglobin 12.2, hematocrit 36.6, and platelet count 2 49,000. Sodium 138, potassium 4, chlorides 103, CO2 31, anion gap 4, BUN 20, and creatinine 0.73. Chest x-ray shows diffuse bilateral infiltrates, consistent with acute respiratory distress syndrome. Progress note dated 01/20/2021. 55-year-old male, admitted with a diagnosis of coronavirus associated pneumonia. The patient is again seen in room 254. He remains on the mechanical ventilator. He is on the volume assist control mode, rate 30, tidal volume 450, FiO2 50%, PEEP of 5. Arterial blood gases show a PaO2 of 77, PaCO2 42, and a pH is 7.47. The patient remains on Nimbex at 3 mcg/kg/m, propofol at 50 mcg/kg/m, heparin via weightbase protocol, and vital AF at 14 mL an hour, which is goal. Current labs include a white count of 8, hemoglobin 11.7, hematocrit 34.9, and a platelet count of 292,000. PTT is 44.2. Sodium 137, potassium 4, chlorides 103, CO2 28, anion gap 6, BUN 24, and creatinine 0.73. AST is 118 with an ALT of 243. LDH is 1228. C-reactive protein is 8.7. Chest x-ray continues to show bilateral airspace disease, which is essentially unchanged. Objective - Vital Signs Vital signs: Vital Signs Temp 99.2 F 01/20/21 00:00 Pulse 68 01/20/21 10:00 Resp 30 H 01/20/21 10:00 BP 99/63 01/19/21 18:00 Pulse Ox 91 L 01/20/21 10:00 Intake & Output 01/19/21 01/20/21 01/20/21 18:59 06:59 18:59 Intake Total 1114.180 954.730 302.907 Output Total 1900 2325 600 Balance -785.820 -1370.270 -297.093 Weight 109 kg Intake: IV 220 220 80 Sodium Chloride 0.9% 1, 220 220 80 000 ml @ 20 mls/hr IV . Q24H [facility] Rx#:[id number] Intake, IV Titration 894.180 734.730 222.907 Amount Cisatracurium 200 mg In 236.465 341.55 Sodium Chloride 0.9% 180 ml @ 1 MCG/KG/MIN 6.6 mls /hr IV .Q24H [facility] Rx#: [id number] Heparin Sod,Pork in 0.45% 250 211.744 222.907 NaCl 25,000 unit In 0.45 % NaCl 1 250ml.bag @ 18 UNITS/KG/HR 19.8 mls/hr IV .[id number] [facility] Rx#: [id number] Sodium Chloride 0.9% 1, 20 000 ml @ 20 mls/hr IV . Q24H [facility] Rx#:[id number] propofoL 1,000 mg In 387.715 181.436 Empty Bag 1 bag @ Titrate IV .Q0M PENDING SALE TO [facility] Rx#: [id number] Output: Urine 1900 2325 600 Other: Voiding Method Indwelling Catheter Indwelling Catheter Indwelling Catheter ABP, PAP, CO, CI - Last Documented Arterial Blood Pressure 94/56 - Exam No acute distress, sedated and paralyzed, with an orally placed endotracheal tube and NG tube. HEENT examination is grossly unremarkable. Neck supple. Full range of motion. No adenopathy thyromegaly or neck vein distention. Cardiovascular examination reveals regular rhythm rate. S1-S2 normal. No S3 or S4. No discernible murmur noted. Heart sounds are distant. Heart rate 68 bpm. Lungs reveal diffuse bilateral coarse rhonchi. Diffuse bilateral crackles. Breath sounds equal bilaterally. Breath sounds are unchanged. Saturations are 91%. Abdomen soft bowel sounds are heard. No masses or tenderness. Extremities are intact. No cyanosis clubbing or edema. Skin is without rash or lesion. Neurologic examination cannot be adequately assessed given the fact the patient is sedated and paralyzed. - Labs CBC & Chem 7: 01/20/21 05:40 01/20/21 05:40 Labs: Abnormal Lab Results - Last 24 Hours (Table) 01/19/21 01/19/21 01/20/21 Range/Units 18:54 23:38 05:40 RBC 3.83 L (4.30-5.90) m/uL Hgb 11.7 L (13.0-17.5) gm/dL Hct 34.9 L (39.0-53.0) % APTT (22.0-30.0) sec ABG pH (7.35-7.45) ABG pO2 (83-108) mmHg ABG HCO3 (21-25) mmol/L ABG Total CO2 (19-24) mmol/L BUN (9-20) mg/dL Glucose (74-99) mg/dL POC Glucose (mg/dL) 129 H 117 H (75-99) mg/dL AST (17-59) U/L ALT (4-49) U/L Lactate Dehydrogenase (313-618) U/L C-Reactive Protein (<1.0) mg/dL Total Protein (6.3-8.2) g/dL Albumin (3.5-5.0) g/dL 1101/20/21 01/20/21 Range/Units 05:40 05:40 05:41 RBC (4.30-5.90) m/uL Hgb (13.0-17.5) gm/dL Hct (39.0-53.0) % APTT 44.2 H (22.0-30.0) sec ABG pH (7.35-7.45) ABG pO2 (83-108) mmHg ABG HCO3 (21-25) mmol/L ABG Total CO2 (19-24) mmol/L BUN 24 H (9-20) mg/dL Glucose 120 H (74-99) mg/dL POC Glucose (mg/dL) 106 H (75-99) mg/dL AST 118 H (17-59) U/L ALT 243 H (4-49) U/L Lactate Dehydrogenase 1228 H (313-618) U/L C-Reactive Protein 8.7 H (<1.0) mg/dL Total Protein 5.5 L (6.3-8.2) g/dL Albumin 2.7 L (3.5-5.0) g/dL 01/20/21 01/20/21 Range/Units 05:48 11:39 RBC (4.30-5.90) m/uL Hgb (13.0-17.5) gm/dL Hct (39.0-53.0) % APTT (22.0-30.0) sec ABG pH 7.47 H (7.35-7.45) ABG pO2 77 L (83-108) mmHg ABG HCO3 31 H (21-25) mmol/L ABG Total CO2 32 H (19-24) mmol/L BUN (9-20) mg/dL Glucose (74-99) mg/dL POC Glucose (mg/dL) 169 H (75-99) mg/dL AST (17-59) U/L ALT (4-49) U/L Lactate Dehydrogenase (313-618) U/L C-Reactive Protein (<1.0) mg/dL Total Protein (6.3-8.2) g/dL Albumin (3.5-5.0) g/dL Assessment and Plan Assessment: Acute hypoxemic respiratory failure secondary to coronavirus associated pneumonia, with intubation and mechanical ventilation, initiated on January 14, for worsening hypoxemia. Acute respiratory distress syndrome (ARDS), secondary to coronavirus associated pneumonia. Previous history of bilateral pulmonary emboli, and left leg DVT, 2016, currently on IV heparin empirically. History of osteoarthritis. No prior history of tobacco use. Plan: Plan dated 01/14/2021. Currently, the patient's on appropriate medication. I did tell the patient, that he may require intubation and mechanical ventilation. Currently, he looks so good despite being on BiPAP, the patient will try to ride it out a bit longer. Should he fatigue, or should his saturations drop, we will do an elective intubation and mechanical ventilation. Will likely need an art line and a central line. Labs are reviewed. Prognosis is guarded. We will continue to follow make recommendations where appropriate. Plan dated 01/15/2021. Yesterday, the patient developed worsening hypoxemic respiratory failure, and was intubated. The patient remains on vitamin C, vitamin D3, and zinc. In addition, the patient is being sedated with, and paralyzed with Nimbex. The p atient is getting Dilaudid when necessary. The patient remains on IV heparin, and Decadron. The patient is also getting BASHIR. Obviously, the patient is very critically ill, and we will continue to follow the patient and make recommendations were appropriate. Prognosis is guarded. Plan dated 01/16/2021. The patient remains on the mechanical ventilator. We have been able to wean off the norepinephrine. Remains on propofol, and Nimbex. He is getting tube feeds at goal. The patient gets Lasix 40 mg IV push. We will attempt to prone the patient for 16 hours. The FiO2 was changed to 60%. We will continue to follow make recommendations where appropriate. Prognosis is guarded. In addition to vitamins, and Decadron, he remains on BASHIR. Plan dated 01/17/2021. The patient is not quite ready to come off the ventilator. He still requiring 6% FiO2, and PEEP of 15. The patient has shown some improvement since he was intubated a couple days ago. He remains on IV heparin, propofol, and paralysis with Nimbex. The patient was proned for 16 hours yesterday. His endotracheal tube may need to be changed. He remains on vital AF. We will continue to follow and make recommendations were appropriate. Prognosis is certainly guarded. He remains on vitamin C, vitamin D3, zinc, Decadron, and BASHIR. Plan dated 01/18/2021. The patient remains on the mechanical ventilator. He remains on heparin, propofol, Nimbex, and tube feeds. The patient's oxygenation has improved a bit, and once he hits an FiO2 of 50% or less, we will be able to start weaning down the PEEP. Patient remains on vitamin C, vitamin D3, zinc, Decadron, and BASHIR. We will continue to follow make recommendations where appropriate. The patient remains on BASHIR. Plan dated 01/20/2021. The patient was seen by my nurse practitioner along with me yesterday. The patient remains on the mechanical breathing machine. He remains on heparin, propofol, Nimbex, and tube feeds. In addition, the patient is on vitamin C, vitamin D3, zinc, Decadron, and BASHIR. In my opinion, although last couple of days, the patient's chest x-ray has shown some improvement, and his oxygenation has improved. He is currently on 50% with PEEP of 15. We will continue to follow make recommendations were appropriate. Prognosis is guarded. Medications, x-rays, and labs are all reviewed. Time with Patient: Greater than 30
--- NOTE | 2021-01-20 13:30 | P.PN ---
Subjective Progress Note Date: 01/20/21 HISTORY OF PRESENT ILLNESS This is a 55-year-old male patient of Dr. 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 Patient states he has not been feeling well since Thursday. He said shortness of breath cough is nonproductive along with fever and chills, exertional dyspnea. He denies having any nausea vomiting or diarrhea. He denies any close contacts to known Covid people. He states his temperature is been up to 102.7 at home. He is not vaccinated. Patient presented to [facility] emergency center and found to be febrile at 101.1, heart rate 90, blood pressure 122/80, pulse ox 85% on room air. CBC revealed platelet count of 128. D-dimer 0.82. Sodium 131 otherwise electrolytes and renal function were normal. Blood sugar 147. Troponin negative. Coronavirus PCR positive. Chest x-ray reveals patchy bilateral airspace disease especially in the mid and lower lungs. Correlate for multifocal pneumonia including Covid 19 pneumonia. CTA of the chest was suboptimal study without central acute pulmonary embolism. Bilateral multifocal and confluent groundglass opacities right greater than left and greater in the lower lungs consistent with known Covid 19 infection. Patient is seen today in the emergency center waiting for bed on the [facility] floor, started on Remdesivir, Lovenox, dexamethasone and vitamin supplements, consult with pulmonary medicine. 01/12: Patient is comfortable, however he requires 40 L of oxygen via airvo sats 88-89%, he feels better today compared to his nonrebreather mask yesterday, patient did not sleep well, patient does not have any cough, however he does have shortness of breath. Patient denies any aspiration, appetite is still marginal, patient has insomnia vitals, blood sugar currently is 243, creatinine of 0.98, d-dimer is 0.84, CRP is elevated, LDH is elevated, venous Doppler, shows chronic DVT, left popliteal, in the posterior tibial veins, without any obstruction of flow. No acute DVT identified CTA, shows suboptimal, without central acute pulmonary emboli, has bilateral multifocal and confluent groundglass opacities, right greater than left, lower lobe, consistent with COVID-19 infection and remdesivir discontinued by pulmonary today and is outside of the window for remdesivir 01/13: Patient is on aerosol 14 L, with nonrebreather mask, 15 L, hypoxemia n oted on 88%, worse with coughing, however his nonrebreather mask is very loose. Nurse is worriedwith the turn of events, and requested an ICU transfer, Dr. Canales has seen the patient, and is stable for floor management at this time, patient is not significant tachypnea, and is not tiring out. There is no hemoptysis, and mucus is productive, patient's doing incentive spirometry, up 2 L. 01/14: Patient remains in the intensive care unit, he was intubated this morning as he was desaturating with BiPAP. He has been afebrile, heart rate 73, blood pressure 93/47, pulse ox 90%. CBC is unremarkable. D-dimer 12.04. Sodium 135, creatinine 0.82. LDH 2929, C-reactive protein 5.2. Sputum culture is in progress. He has had good urine output. Chest x-ray reveals no evident convocation from catheters. Bilateral airspace disease. 01/15: Patient remains in the intensive care intubated and on mechanical ventilation with tidal volume 450, FiO2 80, PEEP of 15. Patient has been started on norepinephrine and remains on propofol, heparin drip, Nimbex. Repeat blood work revealed unremarkable CBC. Creatinine 0.88. Capillary blood glucose running between 195 and 215. AST 126, ALT 183, alkaline phosphatase 109. Sputum culture is in progress. Repeat chest x-ray reveals correlate for pneumonia versus edema, ARDS. Patient is continued on vitamin supplements, heparin drip, dexamethasone and Baricitinib. patient remains in intensive care intubated on mechanical ventilator at FiO2 60 percent PEEP respiratory rate of 30 tidal volume 450. Continues to maintain saturations between 94-95% on the current settings. Vitals otherwise stable labs reviewed today WBC is 9.5 hemoglobin 12.4 d-dimer is elevated at 4.98. ABG obtained today suggest pH of 7.4 pO2 53 bicarb 26 on 50% FiO2. Creatinine stable at 0.78 glucose is maintained between 145-190. LDH 1564 CRP is elevated at 4. Patient's inflammatory markers trending down. Patient's vent settings increased to 80% for inadequate oxygenation. Chest x-ray reviewed showed bilateral infiltrate consistent with coronavirus associated pneumonia. Patient continues intubated on propofol 70 bike but patient examined Nimbex 1.25 g daily per minute. Patient to receive 1 dose of Lasix today. Continue to remain on baricitinib day 2 PAtient remains intubaated since . patient continues too remain on assist control, TV 450 , peep 15 and fio2 of 60 %. patient was proned for 16 hours yesterday. CXR was reviewed, COVID pneumonia but no significant change was noted, Will repeat inflammatory markers tomorrow. Vent managment per gardening manager. Patient contines to remain propofol , nimbex. Continue on lovenox, baricitinib, dexamethasone and vit supplement 01/18 patient continues to remain intubated. Covid pneumonia. Is currently on assist control respiratory rate of 30 tidal volume 450 FiO2 of 55% and PEEP of 15. She is currently on heparin drip, propofol and Nimbex. Patient continues to tolerate prone positioning 16 hours overnight. Continues to receive dexamethasone, vitamin supplement, anticoagulation with heparin, baricitinib. Labs are reviewed patient has a hemoglobin stable at 12.2. This morning pH 7.48 PCO2 44 bicarb 32 creatinine 0.73 AST 100 chest x-ray done this morning suggestive of ARDS and pneumonia 01/19 patient continues to remain intubated currently on assist-control vent with a rate of 30 tidal volume 450 FiO2 50 and PEEP of 15. Continues to remain on propofol and Nimbex. Continue heparin drip for anticoagulation. Remains on Baricitinib , vitamin supplementation and dexamethasone. Labs reviewed hemoglobin stable at 12 PTT 53 blood gas obtained today suggest a pH of 7.45 pCO2 46 pO2 69 bicarb 32 BUN 23 creatinine 0.0.8 glucose 122 AST ED ALT 226. inflammation markers ordered for tomorrow last set was obtained on 01/12 01/20Intubated. Vitals reviewed patient's afebrile pulse of 68 respiratory rate 30 blood pressure. 94/56 oxygen 91% on 50% FiO2. Patient remains on assist control, tidal volume 450 respiratory rate 30 FiO2 of 50% and PEEP of 15. He is currently on Pneumovax at 3 mics per KG per minute propofol at 50 Micro-K to Coumadin and heparin drip. Patient labs are reviewed hemoglobin is 11.7. Arterial blood gas at 50% FiO2 has a pH of 7.47 pO2 of 77 bicarb of 31 BUN 24 creatinine 0.7 LDH [id number] CRP 8.70. CRP is slightly elevated with improvement in LDH. Continue to monitor patient with the goal with treatment on heparin, as dexamethasone, vitamin supplementation and Baricitinib . Blood sugar are well controlled. REVIEW OF SYSTEMS Unable to obtain due to intubation PHYSICAL EXAMINATION Gen: This is a 55-year-old male. He is resting in ICU bed, intubated and on mechanical ventilation, appears to be comfortable. Full examination deferred to the intensive is due to intubation and Covid 19. ASSESSMENT AND PLAN 1. Acute hypoxic respiratory failure secondary to Covid 19 pneumonia non- vaccinated individual. Patient required intubation 01/14. Patient started on Remdesivir was discontinued by pulmonary, on January 12 started on baricinib 4 mg daily , heparin drip, dexamethasone 6 mg daily and vitamin supplements, vent care per gardening manager 2. History of bilateral pulmonary emboli and DVT in 2015. CTA negative for PE. Not on chronic anticoagulation, patient started on heparin drip 3. Generalized osteoarthritis. 4. Degenerative changes in the cervical spine status post fusion of C5-6. 5. GI prophylaxis. Protonix. 6. DVT prophylaxis. Lovenox. DISCHARGE PLAN Home. vs IP rehab . will expect to stay here for covid protracted length of time Objective - Vital Signs Vital signs: Vital Signs Temp 99.2 F 01/20/21 00:00 Pulse 65 01/20/21 06:00 Resp 30 H 01/20/21 06:00 BP 99/63 01/19/21 18:00 Pulse Ox 94 L 01/20/21 06:00 Intake & Output 01/19/21 01/20/21 01/20/21 18:59 06:59 18:59 Intake Total 1114.180 954.730 20 Output Total 1900 2325 100 Balance -785.820 -1370.270 -80 Weight 109 kg Intake: IV 220 220 20 Sodium Chloride 0.9% 1, 220 220 20 000 ml @ 20 mls/hr IV . Q24H BRADY Rx#:[id number] Intake, IV Titration 894.180 734.730 Amount Cisatracurium 200 mg In 236.465 341.55 Sodium Chloride 0.9% 180 ml @ 1 MCG/KG/MIN 6.6 mls /hr IV .Q24H BRADY Rx#: [id number] Heparin Sod,Pork in 0.45% 250 211.744 NaCl 25,000 unit In 0.45 % NaCl 1 250ml.bag @ 18 UNITS/KG/HR 19.8 mls/hr IV .[id number] BRADY Rx#: [id number] Sodium Chloride 0.9% 1, 20 000 ml @ 20 mls/hr IV . Q24H BRADY Rx#:[id number] propofoL 1,000 mg In 387.715 181.436 Empty Bag 1 bag @ Titrate IV .Q0M BRADY Rx#: [id number] Output: Urine 1900 2325 100 Other: Voiding Method Indwelling Catheter Indwelling Catheter ABP, PAP, CO, CI - Last Documented Arterial Blood Pressure 124/64 - Labs CBC & Chem 7: 01/20/21 05:40 01/20/21 05:40 Labs: Abnormal Lab Results - Last 24 Hours (Table) 01/19/21 01/19/21 01/19/21 Range/Units 12:08 18:54 23:38 RBC (4.30-5.90) m/uL Hgb (13.0-17.5) gm/dL Hct (39.0-53.0) % APTT (22.0-30.0) sec ABG pH (7.35-7.45) ABG pO2 (83-108) mmHg ABG HCO3 (21-25) mmol/L ABG Total CO2 (19-24) mmol/L BUN (9-20) mg/dL Glucose (74-99) mg/dL POC Glucose (mg/dL) 208 H 129 H 117 H (75-99) mg/dL AST (17-59) U/L ALT (4-49) U/L Lactate Dehydrogenase (313-618) U/L C-Reactive Protein (<1.0) mg/dL Total Protein (6.3-8.2) g/dL Albumin (3.5-5.0) g/dL 01/20/21 01/20/21 01/20/21 Range/Units 05:40 05:40 05:40 RBC 3.83 L (4.30-5.90) m/uL Hgb 11.7 L (13.0-17.5) gm/dL Hct 34.9 L (39.0-53.0) % APTT 44.2 H (22.0-30.0) sec ABG pH (7.35-7.45) ABG pO2 (83-108) mmHg ABG HCO3 (21-25) mmol/L ABG Total CO2 (19-24) mmol/L BUN 24 H (9-20) mg/dL Glucose 120 H (74-99) mg/dL POC Glucose (mg/dL) (75-99) mg/dL AST 118 H (17-59) U/L ALT 243 H (4-49) U/L Lactate Dehydrogenase 1228 H (313-618) U/L C-Reactive Protein 8.7 H (<1.0) mg/dL Total Protein 5.5 L (6.3-8.2) g/dL Albumin 2.7 L (3.5-5.0) g/dL 01/20/21 01/20/21 Range/Units 05:41 05:48 RBC (4.30-5.90) m/uL Hgb (13.0-17.5) gm/dL Hct (39.0-53.0) % APTT (22.0-30.0) sec ABG pH 7.47 H (7.35-7.45) ABG pO2 77 L (83-108) mmHg ABG HCO3 31 H (21-25) mmol/L ABG Total CO2 32 H (19-24) mmol/L BUN (9-20) mg/dL Glucose (74-99) mg/dL POC Glucose (mg/dL) 106 H (75-99) mg/dL AST (17-59) U/L ALT (4-49) U/L Lactate Dehydrogenase (313-618) U/L C-Reactive Protein (<1.0) mg/dL Total Protein (6.3-8.2) g/dL Albumin (3.5-5.0) g/dL
[2021-01-20] MEDS: SODIUM CHLORIDE 0.9% 1,000 ML IV SCH (15:24)
[2021-01-20 18:26] LABS: Glucose,Whole Blood 164 mg/dL (75-99)
[2021-01-21 00:31] LABS: Glucose,Whole Blood 140 mg/dL (75-99)
[2021-01-21] MEDS: HEPARIN SOD,PORK IN 0.45% NACL 25,000 UNIT in 0.45% NACL 1 250ML.BAG IV SCH (00:53)
[2021-01-21] MEDS: CISATRACURIUM 200 MG in SODIUM CHLORIDE 0.9% 180 ML IV SCH ×3 (00:54→23:00)
[2021-01-21] MEDS: HYDROmorphone 1 MG/ML 1 ML SYRINGE IVP PRN ×4 (01:09→07:58)
[2021-01-21] MEDS: ARTIFICIAL TEARS-HYPROMELLOSE DROPS 15 ML BTL BOTH EYES SCH ×6 (01:10→21:48)
[2021-01-21 05:22] LABS: Basophils % (A) 0 %; Eosinophils # (A) 0.2 k/uL (0-0.7); Eosinophils % (A) 2 %; HCT 35.4 % (39.0-53.0); Lymphocytes # (A) 1.1 k/uL (1.0-4.8); Lymphocytes % (A) 14 %; MCH 30.8 pg (25.0-35.0); MCHC 33.8 g/dL (31.0-37.0); Mean Platelet Volume 8.9; Monocytes # (A) 0.4 k/uL (0-1.0); Monocytes % (A) 5 %; Neutrophils # (A) 5.7 k/uL (1.3-7.7); Neutrophils % (A) 78 %; Platelet Count 310 k/uL (150-450); RBC 3.89 m/uL (4.30-5.90); RDW 13.3 % (11.5-15.5); WBC 7.4 k/uL (3.8-10.6)
[2021-01-21 05:30] LABS: ABG Base Excess 8.2 mmol/L; ABG HCO3 32 mmol/L (21-25); ABG Oxygen Saturation 92.9 % (94-97); ABG PCO2 42 mmHg (35-45); ABG PH 7.49 (7.35-7.45); ABG PO2 62 mmHg (83-108); ABG TCO2 33 mmol/L (19-24)
[2021-01-21 06:04] LABS: Glucose,Whole Blood 101 mg/dL (75-99)
[2021-01-21] MEDS: INSULIN ASPART (NovoLOG) 100 UNIT/ML VIAL SQ SCH ×3 (06:07→19:04)
[2021-01-21 06:08] LABS: ALT 261 U/L (4-49); AST 105 U/L (17-59); African American GFR (CKD) >90 (>60 ml/min/1.73 sqM); Albumin 2.9 g/dL (3.5-5.0); Alkaline Phosphatase 135 U/L (38-126); Anion Gap 3 mmol/L; Blood Urea Nitrogen 24 mg/dL (9-20); Calcium 8.7 mg/dL (8.4-10.2); Carbon Dioxide 30 mmol/L (22-30); Chloride 101 mmol/L (98-107); Glucose 121 mg/dL (74-99); LDH 999 U/L (313-618); Non-African American GFR(CKD) >90 (>60 ml/min/1.73 sqM); Potassium 4.1 mmol/L (3.5-5.1); Sodium 134 mmol/L (137-145); Total Bilirubin 0.7 mg/dL (0.2-1.3); Total Protein 6.1 g/dL (6.3-8.2)
[2021-01-21 07:01] LABS: C Reactive Protein 13.5 mg/dL (<1.0)
--- NOTE | 2021-01-21 07:24 | P.PN ---
Subjective Progress Note Date: 01/21/21 This is a 55-year-old male patient who is being seen in the intensive care unit for respiratory failure secondary to COVID-19 related pneumonia. The patient became symptomatic on 01/11/2021 and the patient's condition progressively got worse. The patient is a nonvaccinated individual. The patient is known to have previous history of pulmonary emboli with a left lower extremity DVT and he is also known to have various other comorbidities including osteoarthritis, cervical neck fusion, previous right shoulder surgery related to arthritis. The patient had a CT angiogram at time of admission that showed bilateral multifocal confluent groundglass pulmonary opacities right more than left in the lower lungs and it was suboptimal for pulmonary embolism. He was started on Decadron. He was supported by BiPAP for respiratory support during the course of his illness as the patient became progressively more hypoxic and his oxygen requirements progressively got worse. Ultimately, the patient was intubated and placed on mechanical ventilator. At this point in time, the patient is sedated with propofol and paralyzed with Nimbex. Propofol is running at 50 mcg/kg per minute and Nimbex @ mcg kilogram per minute. The patient is quite secretions of the mechanical ventilator. At this point in time is an assist-control mode at the rate of 30, tidal volume of 450, FiO2 of 50% with a PEEP of 15. The patient continues to show diffuse bilateral pulmonary infiltrates. Chest x-ray was noted. Blood gases was noted and the patient's pH currently is at 7.49 with a pCO2 of 42 and pO2 of 62. His chest x-ray showed bilateral pulmonary infiltrates system was COVID 19 related pneumonia. Note of any pneumothorax. ET tube is sitting at least 3 cm above the charity.. The patient was kept on Decadron and he was also started on Baricitinib per protocol. The d-dimer during the course of the hospitalization was as high as 12 in the based on that the patient was placed on IV heparin on an empiric basis. The inflammatory markers were elevated and LDH was as high as 2929 and the levels have been g radually improving. The CRP level remains elevated at 8.7 the patient has normal renal function the chest x-ray from today shows bilateral pulmonary infiltrates, ET tube is at least 3 cm above the charity and the patient also has a left subclavian triple-lumen catheter in place. In terms of inflammatory markers, his LDH level is down to 999, the patient continues to have mild transaminitis, CRP is at 13.5. White cell count is 7.4. Her net fluid balance over the past several days has been -2.1 and later on 2.3 L as such the patient has been in a negative fluid balance and he has lost at least 6 kg Objective - Vital Signs Vital signs: Vital Signs Temp 97.8 F 01/21/21 04:00 Pulse 60 01/21/21 07:00 Resp 30 H 01/21/21 07:00 BP 99/63 01/20/21 23:00 Pulse Ox 89 L 01/21/21 07:00 Intake & Output 01/20/21 01/21/21 01/21/21 18:59 06:59 18:59 Intake Total 780.317 887.34 548 Output Total 1525 2475 200 Balance -744.683 -1587.66 348 Weight 105.7 kg Intake: IV 200 240 20 Sodium Chloride 0.9% 1, 200 240 20 000 ml @ 20 mls/hr IV . Q24H BRADY Rx#:[id number] Intake, IV Titration 580.317 647.34 Amount Cisatracurium 200 mg In 157.41 197.34 Sodium Chloride 0.9% 180 ml @ 1 MCG/KG/MIN 6.6 mls /hr IV .Q24H BRADY Rx#: [id number] Heparin Sod,Pork in 0.45% 222.907 250 NaCl 25,000 unit In 0.45 % NaCl 1 250ml.bag @ 18 UNITS/KG/HR 19.8 mls/hr IV .[id number] BRADY Rx#: [id number] propofoL 1,000 mg In 200 200 Empty Bag 1 bag @ Titrate IV .Q0M BRADY Rx#: [id number] Tube Feeding 168 Other 360 Output: Urine 1525 2475 200 Other: Voiding Method Indwelling Catheter Indwelling Catheter ABP, PAP, CO, CI - Last Documented Arterial Blood Pressure 107/63 - Exam Gen. appearance -No acute distress, sedated and paralyzed, with an orally placed endotracheal tube and NG tube. HEENT examination is grossly unremarkable. Neck supple. Full range of motion. No adenopathy thyromegaly or neck vein distention. Cardiac exam revealed the PMI to be normally situated and sized. The rhythm was regular and no extrasystoles were noted during several minutes of auscultation. The first and second heart sounds were normal and physiologic splitting of the second heart sound was noted. There were no murmurs, rubs, clicks, or gallops. Lungs reveal diffuse bilateral coarse rhonchi. Diffuse bilateral crackles. Breath sounds equal bilaterally. Breath sounds are unchanged. Saturations are 91%. Abdominal exam revealed normal bowel sounds. The abdomen was soft, non-tender, and without masses, organomegaly, or appreciable enlargement of the abdominal aorta. Extremities are intact. No cyanosis clubbing or edema. Examination of the skin revealed no evidence of significant rashes, suspicious appearing nevi or other concerning lesions.. Neurologic examination cannot be adequately assessed given the fact the patient is sedated and paralyzed. - Labs CBC & Chem 7: 01/21/21 05:10 01/21/21 05:10 Labs: Abnormal Lab Results - Last 24 Hours (Table) 01/20/21 01/20/21 01/20/21 Range/Units 05:40 11:39 18:24 RBC (4.30-5.90) m/uL Hgb (13.0-17.5) gm/dL Hct (39.0-53.0) % APTT (22.0-30.0) sec ABG pH (7.35-7.45) ABG pO2 (83-108) mmHg ABG HCO3 (21-25) mmol/L ABG Total CO2 (19-24) mmol/L ABG O2 Saturation (94-97) % Sodium (137-145) mmol/L BUN 24 H (9-20) mg/dL Glucose 120 H (74-99) mg/dL POC Glucose (mg/dL) 169 H 164 H (75-99) mg/dL AST 118 H (17-59) U/L ALT 243 H (4-49) U/L Alkaline Phosphatase (38-126) U/L Lactate Dehydrogenase 1228 H (313-618) U/L C-Reactive Protein 8.7 H (<1.0) mg/dL Total Protein 5.5 L (6.3-8.2) g/dL Albumin 2.7 L (3.5-5.0) g/dL 01/21/21 01/21/21 01/21/21 Range/Units 00:29 05:10 05:10 RBC 3.89 L (4.30-5.90) m/uL Hgb 12.0 L (13.0-17.5) gm/dL Hct 35.4 L (39.0-53.0) % APTT 47.2 H (22.0-30.0) sec ABG pH (7.35-7.45) ABG pO2 (83-108) mmHg ABG HCO3 (21-25) mmol/L ABG Total CO2 (19-24) mmol/L ABG O2 Saturation (94-97) % Sodium (137-145) mmol/L BUN (9-20) mg/dL Glucose (74-99) mg/dL POC Glucose (mg/dL) 140 H (75-99) mg/dL AST (17-59) U/L ALT (4-49) U/L Alkaline Phosphatase (38-126) U/L Lactate Dehydrogenase (313-618) U/L C-Reactive Protein (<1.0) mg/dL Total Protein (6.3-8.2) g/dL Albumin (3.5-5.0) g/dL 01/21/21 01/21/21 01/21/21 Range/Units 05:10 05:25 06:02 RBC (4.30-5.90) m/uL Hgb (13.0-17.5) gm/dL Hct (39.0-53.0) % APTT (22.0-30.0) sec ABG pH 7.49 H (7.35-7.45) ABG pO2 62 L (83-108) mmHg ABG HCO3 32 H (21-25) mmol/L ABG Total CO2 33 H (19-24) mmol/L ABG O2 Saturation 92.9 L (94-97) % Sodium 134 L (137-145) mmol/L BUN 24 H (9-20) mg/dL Glucose 121 H (74-99) mg/dL POC Glucose (mg/dL) 101 H (75-99) mg/dL AST 105 H (17-59) U/L ALT 261 H (4-49) U/L Alkaline Phosphatase 135 H (38-126) U/L Lactate Dehydrogenase 999 H (313-618) U/L C-Reactive Protein 13.5 H (<1.0) mg/dL Total Protein 6.1 L (6.3-8.2) g/dL Albumin 2.9 L (3.5-5.0) g/dL Assessment and Plan Plan: 1 Acute hypoxemic respiratory failure secondary to coronavirus associated pneumonia, with intubation and mechanical ventilation, initiated on January 14, for worsening hypoxemia. Noted the patient was initially on nasal cannula oxygen supplementation and following that the patient required BiPAP and ultimately the patient to be intubated on 01/14/2021 for respiratory failure se condary to COVID-19 related to pneumonia. Patient is currently on a combination of Decadron and Baricitinib per protocol. The patient is sedated and paralyzed. Chest x-ray was noted. Blood gases was noted. Inflammatory markers including LDH continued to improve. Currently on IV heparin taken account his previous history of DVT and for embolism. D-dimer was as high as 12 levels have been imp roving. 2 Acute respiratory distress syndrome (ARDS), secondary to coronavirus associated pneumonia. 3 Previous history of bilateral pulmonary emboli, and left leg DVT, 2015, currently on IV heparin empirically. 4 History of osteoarthritis. 5 Aspergillus fumigatus in the sputum, likely colonization 6 Liver function tests are mildly elevated as the patient has a mild component of transaminitis, rest of the inflammatory markers are essentially improving including an LDH which is down to 999 Plan: Continue ventilator support. Doppler tidal volume down to 400 and keep the FiO2 at 40% with a PEEP of 15. The peak airway pressures currently are 30. Static pressure is 29. I'm going to repeat the blood gas in 2 hours and make further adjustments. I'm hoping to gradually wean off the PEEP on this patient. Chest x-ray findings were noted. Blood gases was noted. He does have a component of mild alkalosis. Nevertheless, the patient is diuresing well and he has been a negative fluid balance. concerned about the Aspergillus in sputum. The patient remains on Decadron and Baricitinib. I'm going to continue the same coverage for now. I'm going to rep eat a sputum Gram stain and culture. He is afebrile. He is was hemodynamically stable. Recheck d-dimer Stopped IV heparin and put the patient on Lovenox 40 mg subcu for DVT prophylaxis We're going to ultimately give the patient and paralytic holiday. This will be done probably at around noontime today after the blood gases have been checked Continue enteral feeding for nutritional support Check a triglyceride level We'll continue to follow make further recommendations based on his progress. Condition is critical. This evaluation was done and more than 30 minutes Time with Patient: Greater than 30
[2021-01-21] MEDS: CHLORHEXIDINE GLUCONATE 15 ML CUP MUCOUS MEM SCH ×2 (08:22→21:48)
[2021-01-21] MEDS: ASCORBIC ACID 500 MG TAB PO SCH (08:22)
[2021-01-21] MEDS: PANTOPRAZOLE 40 MG/10 ML VIAL IVP SCH (08:23)
[2021-01-21] MEDS: DEXAMETHASONE SOD PHOSPHATE 10 MG/ML 1 ML VIAL IVP SCH (08:23)
[2021-01-21] MEDS: CHOLECALCIFEROL 25 MCG (1000 IU) TABLET PO SCH (08:23)
[2021-01-21] MEDS: ENOXAPARIN 40 MG/0.4 ML SYRINGE SQ SCH (08:23)
[2021-01-21] MEDS: LACTULOSE 20 GM/30 ML CUP PO SCH (08:24)
[2021-01-21] MEDS: ZINC SULFATE 220 MG CAP PO SCH (08:24)
[2021-01-21 08:46] LABS: Allen Test Performed? Yes
[2021-01-21 08:50] LABS: ABG Base Excess 7.6 mmol/L; ABG HCO3 32 mmol/L (21-25); ABG Oxygen Saturation 93.9 % (94-97); ABG PCO2 48 mmHg (35-45); ABG PH 7.43 (7.35-7.45); ABG PO2 70 mmHg (83-108); ABG TCO2 33 mmol/L (19-24)
[2021-01-21] MEDS: fentaNYL (PF). 1,000 MCG in SODIUM CHLORIDE 0.9% 80 ML IV SCH ×2 (08:55→18:06)
--- NOTE | 2021-01-21 09:18 | XR ---
EXAMINATION TYPE: XR chest 1V portable DATE OF EXAM: 01/21/2021 COMPARISON: 01/20/2021 HISTORY: Tube placement TECHNIQUE: Single frontal view of the chest is obtained. FINDINGS: ET tube and NG tube stable. Left-sided central line stable. Diffuse bilateral airspace dis ease stable. Heart size normal. No pneumothorax. Arthropathy of the shoulders. IMPRESSION: Bilateral patchy airspace disease stable.
[2021-01-21 11:40] LABS: Glucose,Whole Blood 174 mg/dL (75-99)
--- NOTE | 2021-01-21 12:28 | US ---
EXAMINATION TYPE: US gallbladder DATE OF EXAM: 01/21/2021 COMPARISON: CLINICAL HISTORY: elevated LFT's. ICU patient. Covid +. Intubated. Paralyzed. Has feeding tube. EXAM MEASUREMENTS: Liver Length: 16.1 cm Gallbladder Wall: 0.2 cm CBD: 0.4 cm Right Kidney: 10.8 x 5.7 x 6.1 cm Pancreas: Echogenic in appearance. Limited visualization of tail. Liver: Echogenic, coarse and slightly heterogenous Gallbladder: limited visualization, no prominent stone seen Evidence for sonographic York's sign: neg CBD: wnl Right Kidney: No hydronephrosis or masses seen IMPRESSION: 1. Nonspecific pattern of liver can be seen with hepatic steatosis or hepatocellular disease includin g hepatitis correlate clinically.
[2021-01-21] MEDS: BARICITINIB 2 MG TABLET PO SCH (13:15)
[2021-01-21 13:19] LABS: Glucose,Whole Blood 180 mg/dL (75-99)
--- NOTE | 2021-01-21 14:54 | P.PN ---
Subjective Progress Note Date: 01/21/21 HISTORY OF PRESENT ILLNESS This is a 55-year-old male patient of Dr. 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 Patient states he has not been feeling well since Thursday. He said shortness of breath cough is nonproductive along with fever and chills, exertional dyspnea. He denies having any nausea vomiting or diarrhea. He denies any close contacts to known Covid people. He states his temperature is been up to 102.7 at home. He is not vaccinated. Patient presented to [facility] emergency center and found to be febrile at 101.1, heart rate 90, blood pressure 122/80, pulse ox 85% on room air. CBC revealed platelet count of 128. D-dimer 0.82. Sodium 131 otherwise electrolytes and renal function were normal. Blood sugar 147. Troponin negative. Coronavirus PCR positive. Chest x-ray reveals patchy bilateral airspace disease especially in the mid and lower lungs. Correlate for multifocal pneumonia including Covid 19 pneumonia. CTA of the chest was suboptimal study without central acute pulmonary embolism. Bilateral multifocal and confluent groundglass opacities right greater than left and greater in the lower lungs consistent with known Covid 19 infection. Patient is seen today in the emergency center waiting for bed on the [facility] floor, started on Remdesivir, Lovenox, dexamethasone and vitamin supplements, consult with pulmonary medicine. 01/12: Patient is comfortable, however he requires 40 L of oxygen via airvo sats 88-89%, he feels better today compared to his nonrebreather mask yesterday, patient did not sleep well, patient does not have any cough, however he does have shortness of breath. Patient denies any aspiration, appetite is still marginal, patient has insomnia vitals, blood sugar currently is 243, creatinine of 0.98, d-dimer is 0.84, CRP is elevated, LDH is elevated, venous Doppler, shows chronic DVT, left popliteal, in the posterior tibial veins, without any obstruction of flow. No acute DVT identified CTA, shows suboptimal, without central acute pulmonary emboli, has bilateral multifocal and confluent groundglass opacities, right greater than left, lower lobe, consistent with COVID-19 infection and remdesivir discontinued by pulmonary today and is outside of the window for remdesivir 01/13: Patient is on aerosol 14 L, with nonrebreather mask, 15 L, hypoxemia n oted on 88%, worse with coughing, however his nonrebreather mask is very loose. Nurse is worriedwith the turn of events, and requested an ICU transfer, Dr. Canales has seen the patient, and is stable for floor management at this time, patient is not significant tachypnea, and is not tiring out. There is no hemoptysis, and mucus is productive, patient's doing incentive spirometry, up 2 L. 01/14: Patient remains in the intensive care unit, he was intubated this morning as he was desaturating with BiPAP. He has been afebrile, heart rate 73, blood pressure 93/47, pulse ox 90%. CBC is unremarkable. D-dimer 12.04. Sodium 135, creatinine 0.82. LDH 2929, C-reactive protein 5.2. Sputum culture is in progress. He has had good urine output. Chest x-ray reveals no evident convocation from catheters. Bilateral airspace disease. 01/15: Patient remains in the intensive care intubated and on mechanical ventilation with tidal volume 450, FiO2 80, PEEP of 15. Patient has been started on norepinephrine and remains on propofol, heparin drip, Nimbex. Repeat blood work revealed unremarkable CBC. Creatinine 0.88. Capillary blood glucose running between 195 and 215. AST 126, ALT 183, alkaline phosphatase 109. Sputum culture is in progress. Repeat chest x-ray reveals correlate for pneumonia versus edema, ARDS. Patient is continued on vitamin supplements, heparin drip, dexamethasone and Baricitinib. patient remains in intensive care intubated on mechanical ventilator at FiO2 60 percent PEEP respiratory rate of 30 tidal volume 450. Continues to maintain saturations between 94-95% on the current settings. Vitals otherwise stable labs reviewed today WBC is 9.5 hemoglobin 12.4 d-dimer is elevated at 4.98. ABG obtained today suggest pH of 7.4 pO2 53 bicarb 26 on 50% FiO2. Creatinine stable at 0.78 glucose is maintained between 145-190. LDH 1564 CRP is elevated at 4. Patient's inflammatory markers trending down. Patient's vent settings increased to 80% for inadequate oxygenation. Chest x-ray reviewed showed bilateral infiltrate consistent with coronavirus associated pneumonia. Patient continues intubated on propofol 70 bike but patient examined Nimbex 1.25 g daily per minute. Patient to receive 1 dose of Lasix today. Continue to remain on baricitinib day 2 PAtient remains intubaated since . patient continues too remain on assist control, TV 450 , peep 15 and fio2 of 60 %. patient was proned for 16 hours yesterday. CXR was reviewed, COVID pneumonia but no significant change was noted, Will repeat inflammatory markers tomorrow. Vent managment per dehydrogenation supervisor. Patient contines to remain propofol , nimbex. Continue on lovenox, baricitinib, dexamethasone and vit supplement 01/18 patient continues to remain intubated. Covid pneumonia. Is currently on assist control respiratory rate of 30 tidal volume 450 FiO2 of 55% and PEEP of 15. She is currently on heparin drip, propofol and Nimbex. Patient continues to tolerate prone positioning 16 hours overnight. Continues to receive dexamethasone, vitamin supplement, anticoagulation with heparin, baricitinib. Labs are reviewed patient has a hemoglobin stable at 12.2. This morning pH 7.48 PCO2 44 bicarb 32 creatinine 0.73 AST 100 chest x-ray done this morning suggestive of ARDS and pneumonia 01/19 patient continues to remain intubated currently on assist-control vent with a rate of 30 tidal volume 450 FiO2 50 and PEEP of 15. Continues to remain on propofol and Nimbex. Continue heparin drip for anticoagulation. Remains on Baricitinib , vitamin supplementation and dexamethasone. Labs reviewed hemoglobin stable at 12 PTT 53 blood gas obtained today suggest a pH of 7.45 pCO2 46 pO2 69 bicarb 32 BUN 23 creatinine 0.0.8 glucose 122 AST ED ALT 226. inflammation markers ordered for tomorrow last set was obtained on 01/12 01/20 Intubated. Vitals reviewed patient's afebrile pulse of 68 respiratory rate 30 blood pressure. 94/56 oxygen 91% on 50% FiO2. Patient remains on assist control, tidal volume 450 respiratory rate 30 FiO2 of 50% and PEEP of 15. He is currently on Pneumovax at 3 mics per KG per minute propofol at 50 Micro-K to Coumadin and heparin drip. Patient labs are reviewed hemoglobin is 11.7. Arterial blood gas at 50% FiO2 has a pH of 7.47 pO2 of 77 bicarb of 31 BUN 24 creatinine 0.7 LDH [id number] CRP 8.70. CRP is slightly elevated with improvement in LDH. Continue to monitor patient with the goal with treatment on heparin, as dexamethasone, vitamin supplementation and Baricitinib . Blood sugar are well controlled. 01/21: Patient remains intubated and on mechanical ventilation with tidal volume 400, FiO2 40 and PEEP of 16. Patient is on propofol and fentanyl drips. He is on tube feedings to be increased to 26 ML's per hour and tolerating. She he has had 100 250 ML's of urine output per hour. He has been afebrile, heart rate 70, respiratory rate 30, blood pressure 115/64, pulse ox 93%. Repeat blood work reveals WBC 7.4, hemoglobin 12, platelet count 310. D-dimer 1.23. Sodium 134, BUN 24 and creatinine 0.73. Blood sugars are running between 101 and 164. AST 105, ALT 261, alkaline phosphatase 135. LDH 999. C-reactive protein 13.5. Albumin 2.9. Gallbladder ultrasound reveals nonspecific pattern of liver can be seen with hepatic steatitis or hepatocellular disease including hepatitis. The chest x-ray reveals bilateral patchy airspace disease stable. REVIEW OF SYSTEMS Unable to obtain due to intubation PHYSICAL EXAMINATION Gen: This is a 55-year-old male. He is resting in ICU bed, intubated and on mechanical ventilation, appears to be comfortable. Full examination deferred to the intensive is due to intubation and Covid 19. ASSESSMENT AND PLAN 1. Acute hypoxic respiratory failure secondary to Covid 19 pneumonia. Patient required intubation 01/14. Patient started on Remdesivir was discontinued by pulmonary, on January 12/2021 started on baricinib 4 mg daily , continue Lovenox 40 mg subcu daily, dexamethasone 6 mg IV push and vitamin supplements, ventilatory management per dehydrogenation supervisor. 2. Acute respiratory distress syndrome secondary to coronavirus pneumonia. 3. History of bilateral pulmonary emboli and DVT in 2016. CTA negative for PE. Not on chronic anticoagulation, patient started on heparin drip 4. Generalized osteoarthritis. 5. Degenerative changes in the cervical spine status post fusion of C5-6. 6. 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 7. Elevated liver function tests, transaminitis. 8. GI prophylaxis. Protonix. 9. DVT prophylaxis. Lovenox. DISCHARGE PLAN Home. vs IP rehab . will expect to stay here for covid protracted length of time Impression and plan of care have been directed as dictated by the signing physician. Shakila Mosqueda nurse practitioner acting as scribe for signing lucero oliver. Objective - Vital Signs Vital signs: Vital Signs Temp 99.0 F 01/21/21 08:00 Pulse 60 01/21/21 11:00 Resp 30 H 01/21/21 11:00 BP 99/63 01/21/21 11:00 Pulse Ox 89 L 01/21/21 11:00 Intake & Output 01/20/21 01/21/21 01/21/21 18:59 06:59 18:59 Intake Total 780.317 987.34 784 Output Total 1525 2475 555 Balance -744.683 -1487.66 229 Weight 105.7 kg 105.7 kg Intake: IV 200 240 100 Sodium Chloride 0.9% 1, 200 240 100 000 ml @ 20 mls/hr IV . Q24H BRADY Rx#:[id number] Intake, IV Titration 580.317 747.34 Amount Cisatracurium 200 mg In 157.41 197.34 Sodium Chloride 0.9% 180 ml @ 1 MCG/KG/MIN 6.6 mls /hr IV .Q24H BRADY Rx#: [id number] Heparin Sod,Pork in 0.45% 222.907 250 NaCl 25,000 unit In 0.45 % NaCl 1 250ml.bag @ 18 UNITS/KG/HR 19.8 mls/hr IV .[id number] BRADY Rx#: [id number] propofoL 1,000 mg In 200 300 Empty Bag 1 bag @ Titrate IV .Q0M BRADY Rx#: [id number] Tube Feeding 224 Other 460 Output: Urine 1525 2475 555 Other: Voiding Method Indwelling Catheter Indwelling Catheter Indwelling Catheter ABP, PAP, CO, CI - Last Documented Arterial Blood Pressure 103/50 - Labs CBC & Chem 7: 01/21/21 05:10 01/21/21 05:10 Labs: Abnormal Lab Results - Last 24 Hours (Table) 01/20/21 01/20/21 01/21/21 Range/Units 11:39 18:24 00:29 RBC (4.30-5.90) m/uL Hgb (13.0-17.5) gm/dL Hct (39.0-53.0) % APTT (22.0-30.0) sec D-Dimer (<0.60) mg/L FEU ABG pH (7.35-7.45) ABG pCO2 (35-45) mmHg ABG pO2 (83-108) mmHg ABG HCO3 (21-25) mmol/L ABG Total CO2 (19-24) mmol/L ABG O2 Saturation (94-97) % Sodium (137-145) mmol/L BUN (9-20) mg/dL Glucose (74-99) mg/dL POC Glucose (mg/dL) 169 H 164 H 140 H (75-99) mg/dL AST (17-59) U/L ALT (4-49) U/L Alkaline Phosphatase (38-126) U/L Lactate Dehydrogenase (313-618) U/L C-Reactive Protein (<1.0) mg/dL Total Protein (6.3-8.2) g/dL Albumin (3.5-5.0) g/dL 01/21/21 01/21/21 01/21/21 Range/Units 05:10 05:10 05:10 RBC 3.89 L (4.30-5.90) m/uL Hgb 12.0 L (13.0-17.5) gm/dL Hct 35.4 L (39.0-53.0) % APTT 47.2 H (22.0-30.0) sec D-Dimer (<0.60) mg/L FEU ABG pH (7.35-7.45) ABG pCO2 (35-45) mmHg ABG pO2 (83-108) mmHg ABG HCO3 (21-25) mmol/L ABG Total CO2 (19-24) mmol/L ABG O2 Saturation (94-97) % Sodium 134 L (137-145) mmol/L BUN 24 H (9-20) mg/dL Glucose 121 H (74-99) mg/dL POC Glucose (mg/dL) (75-99) mg/dL AST 105 H (17-59) U/L ALT 261 H (4-49) U/L Alkaline Phosphatase 135 H (38-126) U/L Lactate Dehydrogenase 999 H (313-618) U/L C-Reactive Protein 13.5 H (<1.0) mg/dL Total Protein 6.1 L (6.3-8.2) g/dL Albumin 2.9 L (3.5-5.0) g/dL 01/21/21 01/21/21 01/21/21 Range/Units 05:10 05:25 06:02 RBC (4.30-5.90) m/uL Hgb (13.0-17.5) gm/dL Hct (39.0-53.0) % APTT (22.0-30.0) sec D-Dimer 1.23 H (<0.60) mg/L FEU ABG pH 7.49 H (7.35-7.45) ABG pCO2 (35-45) mmHg ABG pO2 62 L (83-108) mmHg ABG HCO3 32 H (21-25) mmol/L ABG Total CO2 33 H (19-24) mmol/L ABG O2 Saturation 92.9 L (94-97) % Sodium (137-145) mmol/L BUN (9-20) mg/dL Glucose (74-99) mg/dL POC Glucose (mg/dL) 101 H (75-99) mg/dL AST (17-59) U/L ALT (4-49) U/L Alkaline Phosphatase (38-126) U/L Lactate Dehydrogenase (313-618) U/L C-Reactive Protein (<1.0) mg/dL Total Protein (6.3-8.2) g/dL Albumin (3.5-5.0) g/dL 01/21/21 Range/Units 08:45 RBC (4.30-5.90) m/uL Hgb (13.0-17.5) gm/dL Hct (39.0-53.0) % APTT (22.0-30.0) sec D-Dimer (<0.60) mg/L FEU ABG pH (7.35-7.45) ABG pCO2 48 H (35-45) mmHg ABG pO2 70 L (83-108) mmHg ABG HCO3 32 H (21-25) mmol/L ABG Total CO2 33 H (19-24) mmol/L ABG O2 Saturation 93.9 L (94-97) % Sodium (137-145) mmol/L BUN (9-20) mg/dL Glucose (74-99) mg/dL POC Glucose (mg/dL) (75-99) mg/dL AST (17-59) U/L ALT (4-49) U/L Alkaline Phosphatase (38-126) U/L Lactate Dehydrogenase (313-618) U/L C-Reactive Protein (<1.0) mg/dL Total Protein (6.3-8.2) g/dL Albumin (3.5-5.0) g/dL
[2021-01-21] MEDS: SODIUM CHLORIDE 0.9% 1,000 ML IV SCH (15:04)
[2021-01-21 18:14] LABS: Glucose,Whole Blood 148 mg/dL (75-99)
[2021-01-22 00:20] LABS: Glucose,Whole Blood 94 mg/dL (75-99)
[2021-01-22 01:03] LABS: Glucose,Whole Blood 98 mg/dL (75-99)
[2021-01-22] MEDS: ARTIFICIAL TEARS-HYPROMELLOSE DROPS 15 ML BTL BOTH EYES SCH ×7 (01:03→23:31)
[2021-01-22] MEDS: INSULIN ASPART (NovoLOG) 100 UNIT/ML VIAL SQ SCH ×4 (01:04→18:48)
[2021-01-22] MEDS: fentaNYL (PF). 1,000 MCG in SODIUM CHLORIDE 0.9% 80 ML IV SCH ×4 (03:28→23:07)
[2021-01-22 05:41] LABS: ABG Base Excess 7.9 mmol/L; ABG HCO3 32 mmol/L (21-25); ABG Oxygen Saturation 92.4 % (94-97); ABG PCO2 50 mmHg (35-45); ABG PH 7.42 (7.35-7.45); ABG PO2 65 mmHg (83-108); ABG TCO2 34 mmol/L (19-24); Allen Test Performed? Yes
[2021-01-22 05:58] LABS: Glucose,Whole Blood 112 mg/dL (75-99)
[2021-01-22 06:26] LABS: Basophils % (A) 0 %; Eosinophils # (A) 0.1 k/uL (0-0.7); Eosinophils % (A) 2 %; HCT 34.9 % (39.0-53.0); HGB 11.6 gm/dL (13.0-17.5); Lymphocytes # (A) 1.4 k/uL (1.0-4.8); Lymphocytes % (A) 15 %; MCH 30.6 pg (25.0-35.0); MCHC 33.3 g/dL (31.0-37.0); MCV 91.8 fL (80.0-100.0); Mean Platelet Volume 8.4; Monocytes # (A) 0.5 k/uL (0-1.0); Monocytes % (A) 6 %; Neutrophils % (A) 76 %; Platelet Count 323 k/uL (150-450); RBC 3.81 m/uL (4.30-5.90); RDW 12.8 % (11.5-15.5); WBC 9.1 k/uL (3.8-10.6)
[2021-01-22 06:33] LABS: ALT 260 U/L (4-49); AST 85 U/L (17-59); African American GFR (CKD) >90 (>60 ml/min/1.73 sqM); Albumin 2.8 g/dL (3.5-5.0); Alkaline Phosphatase 132 U/L (38-126); Anion Gap 5 mmol/L; Blood Urea Nitrogen 22 mg/dL (9-20); Calcium 8.7 mg/dL (8.4-10.2); Carbon Dioxide 30 mmol/L (22-30); Chloride 100 mmol/L (98-107); Glucose 120 mg/dL (74-99); LDH 954 U/L (313-618); Non-African American GFR(CKD) >90 (>60 ml/min/1.73 sqM); Potassium 4.4 mmol/L (3.5-5.1); Sodium 135 mmol/L (137-145); Total Bilirubin 0.8 mg/dL (0.2-1.3); Total Protein 5.6 g/dL (6.3-8.2)
[2021-01-22 07:23] LABS: C Reactive Protein 6.8 mg/dL (<1.0)
--- NOTE | 2021-01-22 07:39 | P.PN ---
Subjective Progress Note Date: 01/22/21 This is a 55-year-old male patient who is being seen in the intensive care unit for respiratory failure secondary to COVID-19 related pneumonia. The patient became symptomatic on 01/11/2021 and the patient's condition progressively got worse. The patient is a nonvaccinated individual. The patient is known to have previous history of pulmonary emboli with a left lower extremity DVT and he is also known to have various other comorbidities including osteoarthritis, cervical neck fusion, previous right shoulder surgery related to arthritis. The patient had a CT angiogram at time of admission that showed bilateral multifocal confluent groundglass pulmonary opacities right more than left in the lower lungs and it was suboptimal for pulmonary embolism. He was started on Decadron. He was supported by BiPAP for respiratory support during the course of his illness as the patient became progressively more hypoxic and his oxygen requirements progressively got worse. Ultimately, the patient was intubated and placed on mechanical ventilator. At this point in time, the patient is sedated with propofol and paralyzed with Nimbex. Propofol is running at 50 mcg/kg per minute and Nimbex @ mcg kilogram per minute. The patient is quite secretions of the mechanical ventilator. At this point in time is an assist-control mode at the rate of 30, tidal volume of 450, FiO2 of 50% with a PEEP of 15. The patient continues to show diffuse bilateral pulmonary infiltrates. Chest x-ray was noted. Blood gases was noted and the patient's pH currently is at 7.49 with a pCO2 of 42 and pO2 of 62. His chest x-ray showed bilateral pulmonary infiltrates system was COVID 19 related pneumonia. Note of any pneumothorax. ET tube is sitting at least 3 cm above the charity.. The patient was kept on Decadron and he was also started on Baricitinib per protocol. The d-dimer during the course of the hospitalization was as high as 12 in the based on that the patient was placed on IV heparin on an empiric basis. The inflammatory markers were elevated and LDH was as high as 2929 and the levels have been gradually improving. The CRP level remains elevated at 8.7 the patient has normal renal function the chest x-ray from today shows bilateral pulmonary infiltrates, ET tube is at least 3 cm above the charity and the patient also has a left subclavian triple-lumen catheter in place. In terms of inflammatory markers, his LDH level is down to 999, the patient continues to have mild transaminitis, CRP is at 13.5. White cell count is 7.4. Her net fluid balance over the past several days has been -2.1 and later on 2.3 L as such the patient has been in a negative fluid balance and he has lost at least 6 kg On today's evaluation of 01/22/2021, patient is being seen for a follow-up. The patient is post COVID 19 related pneumonia with respiratory failure and the patient has been on mechanical ventilator, sedated and paralyzed. This morning, the patient is on propofol which is running at 50 mcg/kg per minute and Nimbex is running at 3 mcg/kg per minute. Patient is also on fentanyl at 1 mcg/kg/h. He is quite synchronous with the mechanical ventilator. On today's evaluation, the patient is an assist-control mode with a tidal volume of 400 FiO2 of 40%, PEEP of 13 and the patient has a respiratory rate of 30. The blood gases from today showed a pH of 7.42 with a pCO2 of 50 and pO2 of 65. The peak airway pressure on the mechanical ventilator is 21 which is considerably lower compared to yesterday. The chest x-ray from today is showing diffuse bilateral pulmonary infiltrates consistent with COVID 19 related pneumonia. ET tube is in a good location. No major interval change compared to yesterday. Meanwhile, the patient is still on a combination of Decadron and Baricitinib per protocol. Inflammatory markers have been gradually improving. The patient is LDH level is down to 954 and his CRP level is down to 6.8. The patient is a white cell count of 9.1 with a hemoglobin of 11.6. The patient's has some mild transaminitis which remains unchanged and the LFTs remain slightly elevated. Triglyceride level was 173 from yesterday. No fever. Most recent d-dimer is at 1.23. He is receiving enteral feeding for nutritional support in the form of white cell 1.2 at the rate of 26 mL an hour. He continues to make excellent urine output patient remains in a negative fluid balance of 2.2 L since yesterday. Objective - Vital Signs Vital signs: Vital Signs Temp 97.5 F L 01/22/21 04:00 Pulse 83 01/22/21 06:00 Resp 30 H 01/22/21 06:00 BP 99/63 11/30/21 03:00 Pulse Ox 94 L 01/22/21 06:00 Intake & Output 01/21/21 01/22/21 01/22/21 18:59 06:59 18:59 Intake Total 0036.688 9511.006 Output Total 1730 3175 Balance 54.871 -1617.994 Weight 105.7 kg 109.5 kg Intake: IV 240 260 Sodium Chloride 0.9% 1, 240 260 000 ml @ 20 mls/hr IV . Q24H [facility] Rx#:[id number] Intake, IV Titration 644.871 599.006 Amount Cisatracurium 200 mg In 200 200 Sodium Chloride 0.9% 180 ml @ 1 MCG/KG/MIN 6.6 mls /hr IV .Q24H [facility] Rx#: [id number] fentaNYL (PF). 1,000 mcg 80.772 99.006 In Sodium Chloride 0.9% 80 ml @ 0.5 MCG/KG/HR 5. 285 mls/hr IV .[id number] [facility] Rx#:[id number] propofoL 1,000 mg In 364.099 300 Empty Bag 1 bag @ Titrate IV .Q0M [facility] Rx#: [id number] Tube Feeding 380 338 Other 520 360 Output: Urine 1730 3175 Other: Voiding Method Indwelling Catheter Indwelling Catheter ABP, PAP, CO, CI - Last Documented Arterial Blood Pressure 160/64 - Exam Gen. appearance -No acute distress, sedated and paralyzed, with an orally placed endotracheal tube and NG tube. HEENT examination is grossly unremarkable. Neck supple. Full range of motion. No adenopathy thyromegaly or neck vein distention. Cardiac exam revealed the PMI to be normally situated and sized. The rhythm was regular and no extrasystoles were noted during several minutes of auscultation. The first and second heart sounds were normal and physiologic splitting of the second heart sound was noted. There were no murmurs, rubs, clicks, or gallops. Lungs reveal diffuse bilateral coarse rhonchi. Diffuse bilateral crackles. Breath sounds equal bilaterally. Breath sounds are unchanged. Saturations are 91%. Abdominal exam revealed normal bowel sounds. The abdomen was soft, non-tender, and without masses, organomegaly, or appreciable enlargement of the abdominal aorta. Extremities are intact. No cyanosis clubbing or edema. Examination of the skin revealed no evidence of significant rashes, suspicious appearing nevi or other concerning lesions.. Neurologic examination cannot be adequately assessed given the fact the patient is sedated and paralyzed. - Labs CBC & Chem 7: 01/22/21 05:40 01/22/21 05:40 Labs: Abnormal Lab Results - Last 24 Hours (Table) 01/21/21 01/21/21 01/21/21 Range/Units 05:10 05:10 08:45 RBC (4.30-5.90) m/uL Hgb (13.0-17.5) gm/dL Hct (39.0-53.0) % D-Dimer 1.23 H (<0.60) mg/L FEU ABG pCO2 48 H (35-45) mmHg ABG pO2 70 L (83-108) mmHg ABG HCO3 32 H (21-25) mmol/L ABG Total CO2 33 H (19-24) mmol/L ABG O2 Saturation 93.9 L (94-97) % Sodium (137-145) mmol/L BUN (9-20) mg/dL Glucose (74-99) mg/dL POC Glucose (mg/dL) (75-99) mg/dL AST (17-59) U/L ALT (4-49) U/L Alkaline Phosphatase (38-126) U/L Lactate Dehydrogenase (313-618) U/L C-Reactive Protein (<1.0) mg/dL Total Protein (6.3-8.2) g/dL Albumin (3.5-5.0) g/dL Triglycerides 173.00 H (0.00-149.00) mg/dL 01/21/21 01/21/21 01/21/21 Range/Units 11:38 13:17 18:12 RBC (4.30-5.90) m/uL Hgb (13.0-17.5) gm/dL Hct (39.0-53.0) % D-Dimer (<0.60) mg/L FEU ABG pCO2 (35-45) mmHg ABG pO2 (83-108) mmHg ABG HCO3 (21-25) mmol/L ABG Total CO2 (19-24) mmol/L ABG O2 Saturation (94-97) % Sodium (137-145) mmol/L BUN (9-20) mg/dL Glucose (74-99) mg/dL POC Glucose (mg/dL) 174 H 180 H 148 H (75-99) mg/dL AST (17-59) U/L ALT (4-49) U/L Alkaline Phosphatase (38-126) U/L Lactate Dehydrogenase (313-618) U/L C-Reactive Protein (<1.0) mg/dL Total Protein (6.3-8.2) g/dL Albumin (3.5-5.0) g/dL Triglycerides (0.00-149.00) mg/dL 01/22/21 01/22/21 01/22/21 Range/Units 05:37 05:40 05:40 RBC 3.81 L (4.30-5.90) m/uL Hgb 11.6 L (13.0-17.5) gm/dL Hct 34.9 L (39.0-53.0) % D-Dimer (<0.60) mg/L FEU ABG pCO2 50 H (35-45) mmHg ABG pO2 65 L (83-108) mmHg ABG HCO3 32 H (21-25) mmol/L ABG Total CO2 34 H (19-24) mmol/L ABG O2 Saturation 92.4 L (94-97) % Sodium 135 L (137-145) mmol/L BUN 22 H (9-20) mg/dL Glucose 120 H (74-99) mg/dL POC Glucose (mg/dL) (75-99) mg/dL AST 85 H (17-59) U/L ALT 260 H (4-49) U/L Alkaline Phosphatase 132 H (38-126) U/L Lactate Dehydrogenase 954 H (313-618) U/L C-Reactive Protein 6.8 H (<1.0) mg/dL Total Protein 5.6 L (6.3-8.2) g/dL Albumin 2.8 L (3.5-5.0) g/dL Triglycerides (0.00-149.00) mg/dL 01/22/21 Range/Units 05:57 RBC (4.30-5.90) m/uL Hgb (13.0-17.5) gm/dL Hct (39.0-53.0) % D-Dimer (<0.60) mg/L FEU ABG pCO2 (35-45) mmHg ABG pO2 (83-108) mmHg ABG HCO3 (21-25) mmol/L ABG Total CO2 (19-24) mmol/L ABG O2 Saturation (94-97) % Sodium (137-145) mmol/L BUN (9-20) mg/dL Glucose (74-99) mg/dL POC Glucose (mg/dL) 112 H (75-99) mg/dL AST (17-59) U/L ALT (4-49) U/L Alkaline Phosphatase (38-126) U/L Lactate Dehydrogenase (313-618) U/L C-Reactive Protein (<1.0) mg/dL Total Protein (6.3-8.2) g/dL Albumin (3.5-5.0) g/dL Triglycerides (0.00-149.00) mg/dL Microbiology - Last 24 Hours (Table) 01/21/21 20:18 Sputum Culture - Preliminary Sputum Assessment and Plan Plan: 1 Acute hypoxemic respiratory failure secondary to coronavirus associated pneumonia, with intubation and mechanical ventilation, initiated on January 14, for worsening hypoxemia. Noted the patient was initially on nasal cannula oxygen supplementation and following that the patient required BiPAP and ultimately the patient to be intubated on 01/14/2021 for respiratory failure secondary to COVID-19 related to pneumonia. Patient is currently on a combination of Decadron and Baricitinib per protocol. The patient is sedated and paralyzed. Chest x-ray was noted. Blood gases was noted. Inflammatory markers including LDH continued to improve. The patient is currently on a FiO2 of 40% with a PEEP of 13. There were pressures are not elevated. Chest x-ray findings are stable. He remains on a combination of Decadron and Baricitinib. He is also on Lovenox for DVT prophylaxis. Inflammatory markers are improving and the d-dimer is also low at 1.23. 2 Acute respiratory distress syndrome (ARDS), secondary to coronavirus associated pneumonia. 3 Previous history of bilateral pulmonary emboli, and left leg DVT, 2016, currently on IV heparin empirically. 4 History of osteoarthritis. 5 Aspergillus fumigatus in the sputum, likely colonization 6 Liver function tests are mildly elevated as the patient has a mild component of transaminitis, rest of the inflammatory markers are essentially improving including LDH Plan: Continue ventilator support. Repeat blood gases at around noontime and consider weaning down the PEEP further as long as there is some improvement in his pO2 Chest x-ray and blood gas was noted from today Give the patient another paralytic holiday today and attempt to keep him off paralytics and use a combination of propofol and fentanyl for sedation awaiting follow-up sputum culture, concerned about the Aspergillus in sputum. The patient remains on Decadron and Baricitinib. I'm going to continue the same coverage for now. I'm going to repeat a sputum Gram stain and culture. He is afebrile. He is was hemodynamically stable. d-dimer is lower Lovenox 40 mg subcu for DVT prophylaxis and dry heaving but the same inclusion and poor over Continue enteral feeding for nutritional support We'll continue to follow make further recommendations based on his progress. Condition is critical. This evaluation was done and more than 30 minutes Time with Patient: Greater than 30 Time with Patient: Greater than 30
--- NOTE | 2021-01-22 08:09 | XR ---
EXAMINATION TYPE: XR chest 1V portable DATE OF EXAM: 01/22/2021 COMPARISON: 01/21/2021 HISTORY: Shortness of breath TECHNIQUE: Single frontal view of the chest is obtained. FINDINGS: ET tube and NG tube stable. Left-sided central line stable. Diffuse bilateral airspace dis ease stable. Heart size normal. No pneumothorax. Arthropathy of the shoulders. IMPRESSION: Bilateral patchy diffuse airspace disease stable.
[2021-01-22] MEDS: CHOLECALCIFEROL 25 MCG (1000 IU) TABLET PO SCH (08:46)
[2021-01-22] MEDS: DEXAMETHASONE SOD PHOSPHATE 10 MG/ML 1 ML VIAL IVP SCH (08:46)
[2021-01-22] MEDS: ZINC SULFATE 220 MG CAP PO SCH (08:46)
[2021-01-22] MEDS: ASCORBIC ACID 500 MG TAB PO SCH (08:46)
[2021-01-22] MEDS: CHLORHEXIDINE GLUCONATE 15 ML CUP MUCOUS MEM SCH ×2 (08:46→20:39)
[2021-01-22] MEDS: LACTULOSE 20 GM/30 ML CUP PO SCH (08:46)
[2021-01-22] MEDS: PANTOPRAZOLE 40 MG/10 ML VIAL IVP SCH (08:47)
[2021-01-22] MEDS: ENOXAPARIN 40 MG/0.4 ML SYRINGE SQ SCH (08:47)
[2021-01-22 11:46] LABS: Glucose,Whole Blood 155 mg/dL (75-99)
[2021-01-22 12:52] LABS: ABG Base Excess 6.4 mmol/L; ABG HCO3 31 mmol/L (21-25); ABG Oxygen Saturation 93.2 % (94-97); ABG PCO2 51 mmHg (35-45); ABG PO2 68 mmHg (83-108); ABG TCO2 33 mmol/L (19-24); Allen Test Performed? Yes
--- NOTE | 2021-01-22 15:18 | P.PN ---
Subjective Progress Note Date: 01/22/21 HISTORY OF PRESENT ILLNESS This is a 55-year-old male patient of Dr. 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 Patient states he has not been feeling well since Thursday. He said shortness of breath cough is nonproductive along with fever and chills, exertional dyspnea. He denies having any nausea vomiting or diarrhea. He denies any close contacts to known Covid people. He states his temperature is been up to 102.7 at home. He is not vaccinated. Patient presented to [facility] emergency center and found to be febrile at 101.1, heart rate 90, blood pressure 122/80, pulse ox 85% on room air. CBC revealed platelet count of 128. D-dimer 0.82. Sodium 131 otherwise electrolytes and renal function were normal. Blood sugar 147. Troponin negative. Coronavirus PCR positive. Chest x-ray reveals patchy bilateral airspace disease especially in the mid and lower lungs. Correlate for multifocal pneumonia including Covid 19 pneumonia. CTA of the chest was suboptimal study without central acute pulmonary embolism. Bilateral multifocal and confluent groundglass opacities right greater than left and greater in the lower lungs consistent with known Covid 19 infection. Patient is seen today in the emergency center waiting for bed on the [facility] floor, started on Remdesivir, Lovenox, dexamethasone and vitamin supplements, consult with pulmonary medicine. 01/12: Patient is comfortable, however he requires 40 L of oxygen via airvo sats 88-89%, he feels better today compared to his nonrebreather mask yesterday, patient did not sleep well, patient does not have any cough, however he does have shortness of breath. Patient denies any aspiration, appetite is still marginal, patient has insomnia vitals, blood sugar currently is 243, creatinine of 0.98, d-dimer is 0.84, CRP is elevated, LDH is elevated, venous Doppler, shows chronic DVT, left popliteal, in the posterior tibial veins, without any obstruction of flow. No acute DVT identified CTA, shows suboptimal, without central acute pulmonary emboli, has bilateral multifocal and confluent groundglass opacities, right greater than left, lower lobe, consistent with COVID-19 infection and remdesivir discontinued by pulmonary today and is outside of the window for remdesivir 01/13: Patient is on aerosol 14 L, with nonrebreather mask, 15 L, hypoxemia n oted on 88%, worse with coughing, however his nonrebreather mask is very loose. Nurse is worriedwith the turn of events, and requested an ICU transfer, Dr. Canales has seen the patient, and is stable for floor management at this time, patient is not significant tachypnea, and is not tiring out. There is no hemoptysis, and mucus is productive, patient's doing incentive spirometry, up 2 L. 01/14: Patient remains in the intensive care unit, he was intubated this morning as he was desaturating with BiPAP. He has been afebrile, heart rate 73, blood pressure 93/47, pulse ox 90%. CBC is unremarkable. D-dimer 12.04. Sodium 135, creatinine 0.82. LDH 2929, C-reactive protein 5.2. Sputum culture is in progress. He has had good urine output. Chest x-ray reveals no evident convocation from catheters. Bilateral airspace disease. 01/15: Patient remains in the intensive care intubated and on mechanical ventilation with tidal volume 450, FiO2 80, PEEP of 15. Patient has been started on norepinephrine and remains on propofol, heparin drip, Nimbex. Repeat blood work revealed unremarkable CBC. Creatinine 0.88. Capillary blood glucose running between 195 and 215. AST 126, ALT 183, alkaline phosphatase 109. Sputum culture is in progress. Repeat chest x-ray reveals correlate for pneumonia versus edema, ARDS. Patient is continued on vitamin supplements, heparin drip, dexamethasone and Baricitinib. patient remains in intensive care intubated on mechanical ventilator at FiO2 60 percent PEEP respiratory rate of 30 tidal volume 450. Continues to maintain saturations between 94-95% on the current settings. Vitals otherwise stable labs reviewed today WBC is 9.5 hemoglobin 12.4 d-dimer is elevated at 4.98. ABG obtained today suggest pH of 7.4 pO2 53 bicarb 26 on 50% FiO2. Creatinine stable at 0.78 glucose is maintained between 145-190. LDH 1564 CRP is elevated at 4. Patient's inflammatory markers trending down. Patient's vent settings increased to 80% for inadequate oxygenation. Chest x-ray reviewed showed bilateral infiltrate consistent with coronavirus associated pneumonia. Patient continues intubated on propofol 70 bike but patient examined Nimbex 1.25 g daily per minute. Patient to receive 1 dose of Lasix today. Continue to remain on baricitinib day 2 PAtient remains intubaated since . patient continues too remain on assist control, TV 450 , peep 15 and fio2 of 60 %. patient was proned for 16 hours yesterday. CXR was reviewed, COVID pneumonia but no significant change was noted, Will repeat inflammatory markers tomorrow. Vent managment per stoneworker. Patient contines to remain propofol , nimbex. Continue on lovenox, baricitinib, dexamethasone and vit supplement 01/18 patient continues to remain intubated. Covid pneumonia. Is currently on assist control respiratory rate of 30 tidal volume 450 FiO2 of 55% and PEEP of 15. She is currently on heparin drip, propofol and Nimbex. Patient continues to tolerate prone positioning 16 hours overnight. Continues to receive dexamethasone, vitamin supplement, anticoagulation with heparin, baricitinib. Labs are reviewed patient has a hemoglobin stable at 12.2. This morning pH 7.48 PCO2 44 bicarb 32 creatinine 0.73 AST 100 chest x-ray done this morning suggestive of ARDS and pneumonia 01/19 patient continues to remain intubated currently on assist-control vent with a rate of 30 tidal volume 450 FiO2 50 and PEEP of 15. Continues to remain on propofol and Nimbex. Continue heparin drip for anticoagulation. Remains on Baricitinib , vitamin supplementation and dexamethasone. Labs reviewed hemoglobin stable at 12 PTT 53 blood gas obtained today suggest a pH of 7.45 pCO2 46 pO2 69 bicarb 32 BUN 23 creatinine 0.0.8 glucose 122 AST ED ALT 226. inflammation markers ordered for tomorrow last set was obtained on 01/12 01/20 Intubated. Vitals reviewed patient's afebrile pulse of 68 respiratory rate 30 blood pressure. 94/56 oxygen 91% on 50% FiO2. Patient remains on assist control, tidal volume 450 respiratory rate 30 FiO2 of 50% and PEEP of 15. He is currently on Pneumovax at 3 mics per KG per minute propofol at 50 Micro-K to Coumadin and heparin drip. Patient labs are reviewed hemoglobin is 11.7. Arterial blood gas at 50% FiO2 has a pH of 7.47 pO2 of 77 bicarb of 31 BUN 24 creatinine 0.7 LDH [id number] CRP 8.70. CRP is slightly elevated with improvement in LDH. Continue to monitor patient with the goal with treatment on heparin, as dexamethasone, vitamin supplementation and Baricitinib . Blood sugar are well controlled. 01/21: Patient remains intubated and on mechanical ventilation with tidal volume 400, FiO2 40 and PEEP of 16. Patient is on propofol and fentanyl drips. He is on tube feedings to be increased to 26 ML's per hour and tolerating. She he has had 100 250 ML's of urine output per hour. He has been afebrile, heart rate 70, respiratory rate 30, blood pressure 115/64, pulse ox 93%. Repeat blood work reveals WBC 7.4, hemoglobin 12, platelet count 310. D-dimer 1.23. Sodium 134, BUN 24 and creatinine 0.73. Blood sugars are running between 101 and 164. AST 105, ALT 261, alkaline phosphatase 135. LDH 999. C-reactive protein 13.5. Albumin 2.9. Gallbladder ultrasound reveals nonspecific pattern of liver can be seen with hepatic steatitis or hepatocellular disease including hepatitis. The chest x-ray reveals bilateral patchy airspace disease stable. 01/22: Remains in the intensive care unit intubated and on mechanical ventilation with tidal volume 400, FiO2 40, PEEP of 13. Paralytics for pause this morning and patient had significant drop in his pulse ox. He is currently on propofol, fentanyl and Nimbex. He has been afebrile, heart rate 73, blood pressure 99/63, pulse ox 90%. Repeat blood work reveals hemoglobin 11.6. Creatinine 0.81. Blood sugars are running between 98 and 155. AST 85, ALT 260, alkaline phosphatase 132. LDH 954, C-reactive protein 6.8. Repeat chest x-ray reveals bilateral patchy diffuse airspace disease stable. Patient is continued on Baricitinib, Lovenox 40 mg subcu daily, dexamethasone 6 mg IV push and vitamin supplements REVIEW OF SYSTEMS Unable to obtain due to intubation PHYSICAL EXAMINATION Gen: This is a 55-year-old male. He is resting in ICU bed, intubated and on mechanical ventilation, appears to be comfortable. Full examination deferred to the intensive due to intubation and Covid 19. ASSESSMENT AND PLAN 1. Acute hypoxic respiratory failure secondary to Covid 19 pneumonia. Patient required intubation 01/14. Patient started on Remdesivir was discontinued by pulmonary, on January 12/2021 started on baricinib 4 mg daily, continue Baricitinib, Lovenox 40 mg subcu daily, dexamethasone 6 mg IV push and vitamin supplements, ventilatory management per stoneworker. 2. Acute respiratory distress syndrome secondary to coronavirus pneumonia. 3. History of bilateral pulmonary emboli and DVT in 2016. CTA negative for PE. Not on chronic anticoagulation, patient started on heparin drip 4. Generalized osteoarthritis. 5. Degenerative changes in the cervical spine status post fusion of C5-6. 6. 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 7. Elevated liver function tests, transaminitis. 8. GI prophylaxis. Protonix. 9. DVT prophylaxis. Lovenox. DISCHARGE PLAN Home. vs IP rehab . will expect to stay here for covid protracted length of time Impression and plan of care have been directed as dictated by the signing physician. Shakila Mosqueda nurse practitioner acting as scribe for signing physician. Objective - Vital Signs Vital signs: Vital Signs Temp 98.9 F 01/22/21 08:00 Pulse 63 01/22/21 10:00 Resp 30 H 01/22/21 10:00 BP 99/63 01/22/21 10:00 Pulse Ox 93 L 01/22/21 10:00 Intake & Output 01/21/21 01/22/21 01/22/21 18:59 06:59 18:59 Intake Total 8911.172 5620.006 568.322 Output Total 1730 3175 400 Balance 54.871 -1517.994 168.322 Weight 105.7 kg 109.5 kg Intake: IV 240 260 60 Sodium Chloride 0.9% 1, 240 260 60 000 ml @ 20 mls/hr IV . Q24H [facility] Rx#:[id number] Intake, IV Titration 644.871 699.006 270.322 Amount Cisatracurium 200 mg In 200 200 192.72 Sodium Chloride 0.9% 180 ml @ 1 MCG/KG/MIN 6.6 mls /hr IV .Q24H [facility] Rx#: [id number] fentaNYL (PF). 1,000 mcg 80.772 99.006 77.602 In Sodium Chloride 0.9% 80 ml @ 0.5 MCG/KG/HR 5. 285 mls/hr IV .[id number] [facility] Rx#:[id number] propofoL 1,000 mg In 364.099 400 Empty Bag 1 bag @ Titrate IV .[facility] Rx#: [id number] Tube Feeding 380 338 78 Other 520 360 160 Output: Urine 1730 3175 400 Other: Voiding Method Indwelling Catheter Indwelling Catheter Indwelling Catheter ABP, PAP, CO, CI - Last Documented Arterial Blood Pressure 94/53 - Labs CBC & Chem 7: 01/22/21 05:40 01/22/21 05:40 Labs: Abnormal Lab Results - Last 24 Hours (Table) 01/21/21 01/21/21 01/21/21 Range/Units 05:10 11:38 13:17 RBC (4.30-5.90) m/uL Hgb (13.0-17.5) gm/dL Hct (39.0-53.0) % ABG pCO2 (35-45) mmHg ABG pO2 (83-108) mmHg ABG HCO3 (21-25) mmol/L ABG Total CO2 (19-24) mmol/L ABG O2 Saturation (94-97) % Sodium (137-145) mmol/L BUN (9-20) mg/dL Glucose (74-99) mg/dL POC Glucose (mg/dL) 174 H 180 H (75-99) mg/dL AST (17-59) U/L ALT (4-49) U/L Alkaline Phosphatase (38-126) U/L Lactate Dehydrogenase (313-618) U/L C-Reactive Protein (<1.0) mg/dL Total Protein (6.3-8.2) g/dL Albumin (3.5-5.0) g/dL Triglycerides 173.00 H (0.00-149.00) mg/dL 01/21/21 01/22/21 01/22/21 Range/Units 18:12 05:37 05:40 RBC 3.81 L (4.30-5.90) m/uL Hgb 11.6 L (13.0-17.5) gm/dL Hct 34.9 L (39.0-53.0) % ABG pCO2 50 H (35-45) mmHg ABG pO2 65 L (83-108) mmHg ABG HCO3 32 H (21-25) mmol/L ABG Total CO2 34 H (19-24) mmol/L ABG O2 Saturation 92.4 L (94-97) % Sodium (137-145) mmol/L BUN (9-20) mg/dL Glucose (74-99) mg/dL POC Glucose (mg/dL) 148 H (75-99) mg/dL AST (17-59) U/L ALT (4-49) U/L Alkaline Phosphatase (38-126) U/L Lactate Dehydrogenase (313-618) U/L C-Reactive Protein (<1.0) mg/dL Total Protein (6.3-8.2) g/dL Albumin (3.5-5.0) g/dL Triglycerides (0.00-149.00) mg/dL 01/22/21 01/22/21 Range/Units 05:40 05:57 RBC (4.30-5.90) m/uL Hgb (13.0-17.5) gm/dL Hct (39.0-53.0) % ABG pCO2 (35-45) mmHg ABG pO2 (83-108) mmHg ABG HCO3 (21-25) mmol/L ABG Total CO2 (19-24) mmol/L ABG O2 Saturation (94-97) % Sodium 135 L (137-145) mmol/L BUN 22 H (9-20) mg/dL Glucose 120 H (74-99) mg/dL POC Glucose (mg/dL) 112 H (75-99) mg/dL AST 85 H (17-59) U/L ALT 260 H (4-49) U/L Alkaline Phosphatase 132 H (38-126) U/L Lactate Dehydrogenase 954 H (313-618) U/L C-Reactive Protein 6.8 H (<1.0) mg/dL Total Protein 5.6 L (6.3-8.2) g/dL Albumin 2.8 L (3.5-5.0) g/dL Triglycerides (0.00-149.00) mg/dL Microbiology - Last 24 Hours (Table) 01/21/21 20:18 Gram Stain - Preliminary Sputum Sputum Culture - Preliminary
[2021-01-22] MEDS: BARICITINIB 2 MG TABLET PO SCH (15:30)
[2021-01-22] MEDS: SODIUM CHLORIDE 0.9% 1,000 ML IV SCH (15:34)
[2021-01-22 17:49] LABS: Glucose,Whole Blood 149 mg/dL (75-99)
[2021-01-22] MEDS: CISATRACURIUM 200 MG in SODIUM CHLORIDE 0.9% 180 ML IV SCH (18:15)
[2021-01-23] MEDS: INSULIN ASPART (NovoLOG) 100 UNIT/ML VIAL SQ SCH ×4 (00:03→18:53)
[2021-01-23 00:04] LABS: Glucose,Whole Blood 96 mg/dL (75-99)
[2021-01-23] MEDS: CISATRACURIUM 200 MG in SODIUM CHLORIDE 0.9% 180 ML IV SCH ×3 (02:02→20:19)
[2021-01-23] MEDS: ARTIFICIAL TEARS-HYPROMELLOSE DROPS 15 ML BTL BOTH EYES SCH ×6 (03:35→23:45)
[2021-01-23] MEDS: fentaNYL (PF). 1,000 MCG in SODIUM CHLORIDE 0.9% 80 ML IV SCH ×4 (03:56→23:19)
[2021-01-23 04:25] LABS: Basophils # (A) 0.1 k/uL (0-0.2); Basophils % (A) 1 %; Eosinophils # (A) 0.1 k/uL (0-0.7); Eosinophils % (A) 1 %; HCT 38.5 % (39.0-53.0); HGB 12.9 gm/dL (13.0-17.5); Lymphocytes # (A) 1.4 k/uL (1.0-4.8); Lymphocytes % (A) 17 %; MCH 30.8 pg (25.0-35.0); MCHC 33.4 g/dL (31.0-37.0); MCV 92.2 fL (80.0-100.0); Mean Platelet Volume 8.2; Monocytes # (A) 0.5 k/uL (0-1.0); Monocytes % (A) 6 %; Neutrophils # (A) 6.1 k/uL (1.3-7.7); Neutrophils % (A) 73 %; Platelet Count 337 k/uL (150-450); RBC 4.17 m/uL (4.30-5.90); RDW 13.4 % (11.5-15.5); WBC 8.3 k/uL (3.8-10.6)
[2021-01-23 04:37] LABS: ALT 328 U/L (4-49); AST 111 U/L (17-59); African American GFR (CKD) >90 (>60 ml/min/1.73 sqM); Alkaline Phosphatase 153 U/L (38-126); Anion Gap 6 mmol/L; Blood Urea Nitrogen 18 mg/dL (9-20); Calcium 9.1 mg/dL (8.4-10.2); Carbon Dioxide 30 mmol/L (22-30); Chloride 100 mmol/L (98-107); Glucose 125 mg/dL (74-99); Non-African American GFR(CKD) >90 (>60 ml/min/1.73 sqM); Sodium 136 mmol/L (137-145); Total Bilirubin 0.9 mg/dL (0.2-1.3)
[2021-01-23 05:51] LABS: Glucose,Whole Blood 92 mg/dL (75-99)
[2021-01-23 05:59] LABS: ABG Base Excess 5.8 mmol/L; ABG HCO3 30 mmol/L (21-25); ABG Oxygen Saturation 94.9 % (94-97); ABG PCO2 44 mmHg (35-45); ABG PH 7.45 (7.35-7.45); ABG PO2 72 mmHg (83-108); ABG TCO2 31 mmol/L (19-24); Allen Test Performed? Yes
--- NOTE | 2021-01-23 08:14 | P.PN ---
Subjective Progress Note Date: 01/23/21 This is a 55-year-old male patient who is being seen in the intensive care unit for respiratory failure secondary to COVID-19 related pneumonia. The patient became symptomatic on 01/11/2021 and the patient's condition progressively got worse. The patient is a nonvaccinated individual. The patient is known to have previous history of pulmonary emboli with a left lower extremity DVT and he is also known to have various other comorbidities including osteoarthritis, cervical neck fusion, previous right shoulder surgery related to arthritis. The patient had a CT angiogram at time of admission that showed bilateral multifocal confluent groundglass pulmonary opacities right more than left in the lower lungs and it was suboptimal for pulmonary embolism. He was started on Decadron. He was supported by BiPAP for respiratory support during the course of his illness as the patient became progressively more hypoxic and his oxygen requirements progressively got worse. Ultimately, the patient was intubated and placed on mechanical ventilator. At this point in time, the patient is sedated with propofol and paralyzed with Nimbex. Propofol is running at 50 mcg/kg per minute and Nimbex @ mcg kilogram per minute. The patient is quite secretions of the mechanical ventilator. At this point in time is an assist-control mode at the rate of 30, tidal volume of 450, FiO2 of 50% with a PEEP of 15. The patient continues to show diffuse bilateral pulmonary infiltrates. Chest x-ray was noted. Blood gases was noted and the patient's pH currently is at 7.49 with a pCO2 of 42 and pO2 of 62. His chest x-ray showed bilateral pulmonary infiltrates system was COVID 19 related pneumonia. Note of any pneumothorax. ET tube is sitting at least 3 cm above the charity.. The patient was kept on Decadron and he was also started on Baricitinib per protocol. The d-dimer during the course of the hospitalization was as high as 12 in the based on that the patient was placed on IV heparin on an empiric basis. The inflammatory markers were elevated and LDH was as high as 2929 and the levels have been gradually improving. The CRP level remains elevated at 8.7 the patient has normal renal function the chest x-ray from today shows bilateral pulmonary infiltrates, ET tube is at least 3 cm above the charity and the patient also has a left subclavian triple-lumen catheter in place. In terms of inflammatory markers, his LDH level is down to 999, the patient continues to have mild transaminitis, CRP is at 13.5. White cell count is 7.4. Her net fluid balance over the past several days has been -2.1 and later on 2.3 L as such the patient has been in a negative fluid balance and he has lost at least 6 kg On today's evaluation of 01/22/2021, patient is being seen for a follow-up. The patient is post COVID 19 related pneumonia with respiratory failure and the patient has been on mechanical ventilator, sedated and paralyzed. This morning, the patient is on propofol which is running at 50 mcg/kg per minute and Nimbex is running at 3 mcg/kg per minute. Patient is also on fentanyl at 1 mcg/kg/h. He is quite synchronous with the mechanical ventilator. On today's evaluation, the patient is an assist-control mode with a tidal volume of 400 FiO2 of 40%, PEEP of 13 and the patient has a respiratory rate of 30. The blood gases from today showed a pH of 7.42 with a pCO2 of 50 and pO2 of 65. The peak airway pressure on the mechanical ventilator is 21 which is considerably lower compared to yesterday. The chest x-ray from today is showing diffuse bilateral pulmonary infiltrates consistent with COVID 19 related pneumonia. ET tube is in a good location. No major interval change compared to yesterday. Meanwhile, the patient is still on a combination of Decadron and Baricitinib per protocol. Inflammatory markers have been gradually improving. The patient is LDH level is down to 954 and his CRP level is down to 6.8. The patient is a white cell count of 9.1 with a hemoglobin of 11.6. The patient's has some mild transaminitis which remains unchanged and the LFTs remain slightly elevated. Triglyceride level was 173 from yesterday. No fever. Most recent d-dimer is at 1.23. He is receiving enteral feeding for nutritional support in the form of white cell 1.2 at the rate of 26 mL an hour. He continues to make excellent urine output patient remains in a negative fluid balance of 2.2 L since yesterday. 01/23/2021, patient is being seen for a follow-up. The patient remains intubated on a mechanical ventilator. The patient remains sedated and paralyzed. The patient is a case of COVID 19 related pneumonia with respiratory failure. He has been on a mechanical ventilator since 01/14/2021. This morning, the patient is on propofol running at 75 mcg/kg per minute and the patient is also on fentanyl at 2 mcg/kg/h and the patient is also Nimbex running at 3 mcg/kg per minute. The patient is quite suggestive mechanical ventilator as of yesterday. The patient remains on a mechanical ventilator on assist control mode with a tidal volume of 400 and FiO2 of 40% and a PEEP of 12 which was gradually reduced and a respiratory rate of 30. The blood gases from today shows a pH of 7.45 with a pCO2 of 44 and pO2 of 72. The chest x-ray findings are essentially stable without any interval change compared to yesterday. ET tube remains in a good location. The patient remains on a combination of Decadron and Baricitinib per protocol. Aspergillus was cultured in the sputum which is probably a colonizer. We are repeating the sputum sample for now. The patient is afebrile. No significant leukocytosis the white cell count at 8.3. The rest of the labs are all stable. Normal renal function. He does have abnormalities in his liver function tests and there is some limited rise in the AST and ALP compared to yesterday and the levels being at around 28 and 153 respectively. The LDH level from yesterday was down to 954. The most recent d- dimer was at 1.23. The patient is on Lovenox for DVT prophylaxis. IV heparin was been discontinued. The peak airway pressures 25. The static pressure is 22 on today's evaluation. Objective - Vital Signs Vital signs: Vital Signs Temp 97.6 F 01/23/21 04:00 Pulse 64 01/23/21 07:00 Resp 30 H 01/23/21 07:00 BP 108/65 01/23/21 07:00 Pulse Ox 94 L 01/23/21 07:00 Intake & Output 01/22/21 01/23/21 01/23/21 18:59 06:59 18:59 Intake Total 4594.157 8804.441 52 Output Total 1810 2350 150 Balance -452.039 -820.559 -98 Weight 102.1 kg Intake: IV 220 306 26 Pressure Bags 66 6 Sodium Chloride 0.9% 1 220 240 20 000 ml @ 20 mls/hr IV . Q24H [facility] Rx#:[id number] Intake, IV Titration 571.961 791.441 Amount Cisatracurium 200 mg In 200.00 154.11 Sodium Chloride 0.9% 180 ml @ 1 MCG/KG/MIN 6.6 mls /hr IV .Q24H [facility] Rx#: [id number] fentaNYL (PF). 1,000 mcg 176.696 155.643 In Sodium Chloride 0.9% 80 ml @ 0.5 MCG/KG/HR 5. 285 mls/hr IV .[id number] [facility] Rx#:[id number] propofoL 1,000 mg In 195.265 481.688 Empty Bag 1 bag @ Titrate IV .Q0M [facility] Rx#: [id number] Tube Feeding 286 312 26 Other 280 120 Output: Urine 1810 2350 150 Other: Voiding Method Indwelling Catheter Indwelling Catheter ABP, PAP, CO, CI - Last Documented Arterial Blood Pressure 125/62 - Exam Gen. appearance -No acute distress, sedated and paralyzed, with an orally placed endotracheal tube and NG tube. HEENT examination is grossly unremarkable. Neck supple. Full range of motion. No adenopathy thyromegaly or neck vein distention. Cardiac exam revealed the PMI to be normally situated and sized. The rhythm was regular and no extrasystoles were noted during several minutes of auscultation. The first and second heart sounds were normal and physiologic splitting of the second heart sound was noted. There were no murmurs, rubs, clicks, or gallops. Lungs reveal diffuse bilateral coarse rhonchi. Diffuse bilateral crackles. Breath sounds equal bilaterally. Breath sounds are unchanged. Saturations are 91%. Abdominal exam revealed normal bowel sounds. The abdomen was soft, non-tender, and without masses, organomegaly, or appreciable enlargement of the abdominal aorta. Extremities are intact. No cyanosis clubbing or edema. Examination of the skin revealed no evidence of significant rashes, suspicious appearing nevi or other concerning lesions.. Neurologic examination cannot be adequately assessed given the fact the patient is sedated and paralyzed. - Labs CBC & Chem 7: 01/23/21 04:00 01/23/21 04:00 Labs: Abnormal Lab Results - Last 24 Hours (Table) 01/22/21 01/22/21 01/22/21 Range/Units 11:45 12:47 17:38 RBC (4.30-5.90) m/uL Hgb (13.0-17.5) gm/dL Hct (39.0-53.0) % ABG pCO2 51 H (35-45) mmHg ABG pO2 68 L (83-108) mmHg ABG HCO3 31 H (21-25) mmol/L ABG Total CO2 33 H (19-24) mmol/L ABG O2 Saturation 93.2 L (94-97) % Sodium (137-145) mmol/L Glucose (74-99) mg/dL POC Glucose (mg/dL) 155 H 149 H (75-99) mg/dL AST (17-59) U/L ALT (4-49) U/L Alkaline Phosphatase (38-126) U/L Total Protein (6.3-8.2) g/dL Albumin (3.5-5.0) g/dL 01/23/21 01/23/21 01/23/21 Range/Units 04:00 04:00 05:51 RBC 4.17 L (4.30-5.90) m/uL Hgb 12.9 L (13.0-17.5) gm/dL Hct 38.5 L (39.0-53.0) % ABG pCO2 (35-45) mmHg ABG pO2 72 L (83-108) mmHg ABG HCO3 30 H (21-25) mmol/L ABG Total CO2 31 H (19-24) mmol/L ABG O2 Saturation (94-97) % Sodium 136 L (137-145) mmol/L Glucose 125 H (74-99) mg/dL POC Glucose (mg/dL) (75-99) mg/dL AST 111 H (17-59) U/L ALT 328 H (4-49) U/L Alkaline Phosphatase 153 H (38-126) U/L Total Protein 6.0 L (6.3-8.2) g/dL Albumin 3.0 L (3.5-5.0) g/dL Microbiology - Last 24 Hours (Table) 01/21/21 20:18 Gram Stain - Preliminary Sputum Sputum Culture - Preliminary Assessment and Plan Plan: 1 Acute hypoxemic respiratory failure secondary to coronavirus associated pneumonia, with intubation and mechanical ventilation, initiated on January 14, for worsening hypoxemia. Noted the patient was initially on nasal cannula oxygen supplementation and following that the patient required BiPAP and ul timately the patient to be intubated on 01/14/2021 for respiratory failure secondary to COVID-19 related to pneumonia. Patient is currently on a combination of Decadron and Baricitinib per protocol. The patient is sedated and paralyzed. Chest x-ray was noted. Blood gases was noted. Inflammatory markers including LDH continued to improve. The patient is currently on a FiO2 of 40% with a PEEP of 12. There were pressures are not elevated. Chest x-ray findings are stable. He remains on a combination of Decadron and Baricitinib. He is also on Lovenox for DVT prophylaxis. Inflammatory markers are improving and the d-dimer is also low at 1.23. On today's evaluation of 01/23/2021, the patient is essentially stable and airway pressures remained quite low and the patient is adequately oxygenating and ventilating on the above-mentioned ventilator setting. No significant events over the past 24 hours. 2 Acute respiratory distress syndrome (ARDS), secondary to coronavirus associated pneumonia. 3 Previous history of bilateral pulmonary emboli, and left leg DVT, 2015, currently on LLovenox. 4 History of osteoarthritis. 5 Aspergillus fumigatus in the sputum, likely colonization 6 Liver function tests are mildly elevated as the patient has a mild component of transaminitis, rest of the inflammatory markers are essentially improving including LDH Plan: Continue ventilator support. Reduce the PEEP down to 10 Chest x-ray and blood gas was noted from today, no interval change in the findings are essentially stable Give the patient another paralytic holiday today and attempt to keep him off paralytics and use a combination of propofol and fentanyl for sedation awaiting follow-up sputum culture, concerned about the Aspergillus in sputum. The patient remains on Decadron and Baricitinib. I'm going to continue the same coverage for now. I'm going to repeat a sputum Gram stain and culture. He is afebrile. He is was hemodynamically stable. d-dimer is lower Lovenox 40 mg subcu for DVT prophylaxis and dry heaving but the same inclusion and poor over Continue enteral feeding for nutritional support Patient has been intubated on 01/14/2021. As such, due to the slow on the limited recovered and he is incontinent of the past few days, I think it's reasonable to consider a tracheostomy tube and a PEG tube insertion. I discussed this with the family. I contacted the . She was agreeable to our approach. Based on this, I'm going to put the general surgical consultation for a PEG and trach and hopefully this will help us with his weaning process. We'll continue to follow make further recommendations based on his progress. We'll continue to follow make further recommendations based on his progress. Condition is critical. This evaluation was done and more than 30 minutes Time with Patient: Greater than 30
[2021-01-23] MEDS: CHOLECALCIFEROL 25 MCG (1000 IU) TABLET PO SCH (08:37)
[2021-01-23] MEDS: ASCORBIC ACID 500 MG TAB PO SCH (08:37)
[2021-01-23] MEDS: LACTULOSE 20 GM/30 ML CUP PO SCH (08:37)
[2021-01-23] MEDS: ZINC SULFATE 220 MG CAP PO SCH (08:37)
[2021-01-23] MEDS: PANTOPRAZOLE 40 MG/10 ML VIAL IVP SCH (08:39)
[2021-01-23] MEDS: CHLORHEXIDINE GLUCONATE 15 ML CUP MUCOUS MEM SCH ×2 (08:39→19:47)
[2021-01-23] MEDS: ENOXAPARIN 40 MG/0.4 ML SYRINGE SQ SCH (08:39)
[2021-01-23] MEDS: DEXAMETHASONE SOD PHOSPHATE 10 MG/ML 1 ML VIAL IVP SCH (08:39)
--- NOTE | 2021-01-23 09:05 | XR ---
EXAMINATION TYPE: XR chest 1V portable DATE OF EXAM: 01/23/2021 COMPARISON: 01/22/2021 HISTORY: Shortness of breath TECHNIQUE: Single frontal view of the chest is obtained. FINDINGS: ET tube and NG tube stable. Left-sided central line stable. Diffuse bilateral airspace dis ease stable. Heart size normal. No pneumothorax. Arthropathy of the shoulders. Postsurgical change ov erlying the cervical spine. IMPRESSION: Bilateral patchy diffuse airspace disease stable.
[2021-01-23] MEDS ORDERED: PROPOFOL 10 MG/ML 20 ML VIAL IV ONE ×3 (13:00→17:41)
[2021-01-23 13:18] LABS: Glucose,Whole Blood 193 mg/dL (75-99)
--- NOTE | 2021-01-23 14:24 | P.GSCN ---
History of Present Illness Consult date: 01/23/21 History of present illness: CHIEF COMPLAINT: Shortness of breath and cough Recent consult trach and PEG HISTORY OF PRESENT ILLNESS: This is a 55-year-old male who presented to the hospital on 01/11/2021 with complaints of shortness of breath, fatigue and cough and was diagnosed with COVID-19 pneumonia. Patient required to be intubated on January 14. Patient's PEEP is currently 12. Surgical consult was requested for tracheostomy and PEG tube placement. PAST MEDICAL HISTORY: See list. PAST SURGICAL HISTORY: See list. MEDICATIONS: See list. ALLERGIES: See list. SOCIAL HISTORY: No illicit drug use. REVIEW OF SYSTEMS: CONSTITUTIONAL: Denies fever or chills. HEENT: Denies blurred vision, vision changes, or eye pain. Denies hemoptysis CARDIOVASCULAR: Denies chest pain or pressure. RESPIRATORY: No shortness of breath. GASTROINTESTINAL: Denies any abdominal pain. Denies any nausea or vomiting HEMATOLOGIC: Denies bleeding disorders. GENITOURINARY: Denies any blood in urine or increased urinary frequency. SKIN: Denies pruitis. Denies rash. PHYSICAL EXAM: VITAL SIGNS: Reviewed GENERAL: Well-developed in no acute distress. HEENT: No sclera icterus. Extraocular movements grossly intact. Moist buccal mucosa. Head is atraumatic, normocephalic. No nasal drainage. ABDOMEN: Soft. Nondistended. Nontender NEUROLOGIC: Patient is intubated and being weaned off his sedation. He is able to open his eyes. LABORATORY DATA: WBC is 8.3 Hgb is 12.9 platelets 337 Sodium 136 potassium 4.0 creatinine 0.71 Albumin 3.0 IMAGING: ASSESSMENT: 1. Acute hypoxic respiratory failure secondary to COVID-19 pneumonia requiring mechanical ventilation 2. Moderate protein calorie malnutrition PLAN: -Patient scheduled for tracheostomy and PEG tube placement today with Dr. noble -Hold tube feedings -Hold Lovenox Thank you for this consultation Physician [employer] note has been reviewed by physician. Signing provider agrees with the documented findings, assessment, and plan of care. Past Medical History Past Medical History: Deep Vein Thrombosis (DVT), Osteoarthritis (OA) Additional Past Medical History / Comment(s): PAULETTE PE, DVT. ASBESTOS EXPOSURE, HIATAL HERNIA, MIGRAINES TRIGGERED BY MSG. KIDNEY STONES, PASSED OWN OWN. 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 [employer] Smoking Status: Never smoker Past Alcohol Use History: None Reported Past Drug Use History: None Reported - Past Family History Father History Unknown: Yes Additional Family Medical History / Comment(s): PT WAS RAISED BY STEP FATHER Mother Family Medical History: Diabetes Mellitus, Hypertension Brother(s) Family Medical History: No Reported History Sister(s) Family Medical History: No Reported History Daughter(s) Family Medical History: Asthma Medications and Allergies Home Medications Medication Instructions Recorded Confirmed Type Betamethasone Dipropionate 1 applic TOPICAL BID 01/11/21 01/11/21 History [Betamethasone Dipropionate 0.05%] Allergies Allergy/AdvReac Type Severity Reaction Status Date / Time monosodium glutamate [MSG] AdvReac MIGRAINES Verified 01/11/21 09:54 Surgical - Exam Vital Signs Temp Pulse Resp BP Pulse Ox 101.1 F H 90 22 122/80 85 L 01/11/21 08:07 01/11/21 08:07 01/11/21 08:07 01/11/21 08:07 01/11/21 08:07 Results - Labs 01/23/21 04:00 01/23/21 04:00 Abnormal Lab Results - Last 24 Hours (Table) 01/22/21 01/23/21 01/23/21 Range/Units 17:38 04:00 04:00 RBC 4.17 L (4.30-5.90) m/uL Hgb 12.9 L (13.0-17.5) gm/dL Hct 38.5 L (39.0-53.0) % ABG pO2 (83-108) mmHg ABG HCO3 (21-25) mmol/L ABG Total CO2 (19-24) mmol/L Sodium 136 L (137-145) mmol/L Glucose 125 H (74-99) mg/dL POC Glucose (mg/dL) 149 H (75-99) mg/dL AST 111 H (17-59) U/L ALT 328 H (4-49) U/L Alkaline Phosphatase 153 H (38-126) U/L Total Protein 6.0 L (6.3-8.2) g/dL Albumin 3.0 L (3.5-5.0) g/dL 01/23/21 01/23/21 Range/Units 05:51 13:16 RBC (4.30-5.90) m/uL Hgb (13.0-17.5) gm/dL Hct (39.0-53.0) % ABG pO2 72 L (83-108) mmHg ABG HCO3 30 H (21-25) mmol/L ABG Total CO2 31 H (19-24) mmol/L Sodium (137-145) mmol/L Glucose (74-99) mg/dL POC Glucose (mg/dL) 193 H (75-99) mg/dL AST (17-59) U/L ALT (4-49) U/L Alkaline Phosphatase (38-126) U/L Total Protein (6.3-8.2) g/dL Albumin (3.5-5.0) g/dL Microbiology - Last 24 Hours (Table) 01/21/21 20:18 Gram Stain - Preliminary Sputum Sputum Culture - Preliminary Corynebacterium species Diabetes panel 01/23/21 Range/Units 04:00 Sodium 136 L (137-145) mmol/L Potassium 4.0 (3.5-5.1) mmol/L Chloride 100 (98-107) mmol/L Carbon Dioxide 30 (22-30) mmol/L BUN 18 (9-20) mg/dL Creatinine 0.71 (0.66-1.25) mg/dL Glucose 125 H (74-99) mg/dL Calcium 9.1 (8.4-10.2) mg/dL AST 111 H (17-59) U/L ALT 328 H (4-49) U/L Alkaline Phosphatase 153 H (38-126) U/L Total Protein 6.0 L (6.3-8.2) g/dL Albumin 3.0 L (3.5-5.0) g/dL Calcium panel 01/23/21 Range/Units 04:00 Calcium 9.1 (8.4-10.2) mg/dL Albumin 3.0 L (3.5-5.0) g/dL Pituitary panel 01/23/21 Range/Units 04:00 Sodium 136 L (137-145) mmol/L Potassium 4.0 (3.5-5.1) mmol/L Chloride 100 (98-107) mmol/L Carbon Dioxide 30 (22-30) mmol/L BUN 18 (9-20) mg/dL Creatinine 0.71 (0.66-1.25) mg/dL Glucose 125 H (74-99) mg/dL Calcium 9.1 (8.4-10.2) mg/dL Adrenal panel 01/23/21 Range/Units 04:00 Sodium 136 L (137-145) mmol/L Potassium 4.0 (3.5-5.1) mmol/L Chloride 100 (98-107) mmol/L Carbon Dioxide 30 (22-30) mmol/L BUN 18 (9-20) mg/dL Creatinine 0.71 (0.66-1.25) mg/dL Glucose 125 H (74-99) mg/dL Calcium 9.1 (8.4-10.2) mg/dL Total Bilirubin 0.9 (0.2-1.3) mg/dL AST 111 H (17-59) U/L ALT 328 H (4-49) U/L Alkaline Phosphatase 153 H (38-126) U/L Total Protein 6.0 L (6.3-8.2) g/dL Albumin 3.0 L (3.5-5.0) g/dL
[2021-01-23] MEDS ORDERED: MIDAZOLAM 2 MG/2 ML VIAL ONE (17:41)
[2021-01-23] MEDS ORDERED: fentaNYL (PF) 50 MCG/ML 2 ML AMP ONE (17:41)
[2021-01-23] MEDS ORDERED: KETAMINE 10 MG/ML 20 ML VIAL ONE (17:41)
[2021-01-23 18:42] LABS: Glucose,Whole Blood 93 mg/dL (75-99)
[2021-01-23] MEDS: SODIUM CHLORIDE 0.9% 1,000 ML IV SCH (18:52)
[2021-01-23] MEDS: BARICITINIB 2 MG TABLET PO SCH (19:48)
[2021-01-23 23:44] LABS: Glucose,Whole Blood 87 mg/dL (75-99)
[2021-01-24] MEDS: INSULIN ASPART (NovoLOG) 100 UNIT/ML VIAL SQ SCH ×4 (01:25→18:40)
[2021-01-24] MEDS: fentaNYL (PF). 1,000 MCG in SODIUM CHLORIDE 0.9% 80 ML IV SCH (03:03)
[2021-01-24] MEDS: ARTIFICIAL TEARS-HYPROMELLOSE DROPS 15 ML BTL BOTH EYES SCH ×5 (03:58→19:55)
[2021-01-24 04:02] LABS: Basophils # (A) 0.1 k/uL (0-0.2); Basophils % (A) 1 %; Eosinophils # (A) 0.2 k/uL (0-0.7); Eosinophils % (A) 1 %; HCT 36.8 % (39.0-53.0); HGB 12.3 gm/dL (13.0-17.5); Lymphocytes # (A) 0.8 k/uL (1.0-4.8); Lymphocytes % (A) 5 %; MCH 30.5 pg (25.0-35.0); MCHC 33.4 g/dL (31.0-37.0); MCV 91.3 fL (80.0-100.0); Mean Platelet Volume 7.9; Monocytes # (A) 0.9 k/uL (0-1.0); Monocytes % (A) 5 %; Neutrophils # (A) 15.2 k/uL (1.3-7.7); Neutrophils % (A) 88 %; Platelet Count 329 k/uL (150-450); RBC 4.03 m/uL (4.30-5.90); RDW 12.7 % (11.5-15.5); WBC 17.2 k/uL (3.8-10.6)
[2021-01-24 04:12] LABS: ALT 248 U/L (4-49); AST 54 U/L (17-59); African American GFR (CKD) >90 (>60 ml/min/1.73 sqM); Albumin 2.9 g/dL (3.5-5.0); Alkaline Phosphatase 132 U/L (38-126); Anion Gap 5 mmol/L; Blood Urea Nitrogen 21 mg/dL (9-20); Calcium 8.3 mg/dL (8.4-10.2); Carbon Dioxide 27 mmol/L (22-30); Chloride 98 mmol/L (98-107); Glucose 123 mg/dL (74-99); Non-African American GFR(CKD) >90 (>60 ml/min/1.73 sqM); Potassium 4.5 mmol/L (3.5-5.1); Sodium 130 mmol/L (137-145); Total Protein 5.8 g/dL (6.3-8.2)
[2021-01-24 05:38] LABS: Glucose,Whole Blood 80 mg/dL (75-99)
[2021-01-24 05:44] LABS: ABG Base Excess 3.7 mmol/L; ABG HCO3 29 mmol/L (21-25); ABG Oxygen Saturation 94.2 % (94-97); ABG PCO2 50 mmHg (35-45); ABG PH 7.37 (7.35-7.45); ABG PO2 72 mmHg (83-108); ABG TCO2 30 mmol/L (19-24); Allen Test Performed? Yes
[2021-01-24] MEDS ORDERED: ACETAMINOPHEN IV (For NPO) 1,000 MG in EMPTY BAG 1 BAG IVPB STA (08:13)
[2021-01-24] MEDS: PANTOPRAZOLE 40 MG/10 ML VIAL IVP SCH (08:14)
[2021-01-24] MEDS: DEXAMETHASONE SOD PHOSPHATE 10 MG/ML 1 ML VIAL IVP SCH (08:14)
[2021-01-24] MEDS: CHLORHEXIDINE GLUCONATE 15 ML CUP MUCOUS MEM SCH ×2 (08:14→21:23)
[2021-01-24] MEDS: ENOXAPARIN 40 MG/0.4 ML SYRINGE SQ SCH (08:14)
--- NOTE | 2021-01-24 08:41 | P.PN ---
Subjective Progress Note Date: 01/24/21 This is a 55-year-old male patient who is being seen in the intensive care unit for respiratory failure secondary to COVID-19 related pneumonia. The patient became symptomatic on 01/11/2021 and the patient's condition progressively got worse. The patient is a nonvaccinated individual. The patient is known to have previous history of pulmonary emboli with a left lower extremity DVT and he is also known to have various other comorbidities including osteoarthritis, cervical neck fusion, previous right shoulder surgery related to arthritis. The patient had a CT angiogram at time of admission that showed bilateral multifocal confluent groundglass pulmonary opacities right more than left in the lower lungs and it was suboptimal for pulmonary embolism. He was started on Decadron. He was supported by BiPAP for respiratory support during the course of his illness as the patient became progressively more hypoxic and his oxygen requirements progressively got worse. Ultimately, the patient was intubated and placed on mechanical ventilator. At this point in time, the patient is sedated with propofol and paralyzed with Nimbex. Propofol is running at 50 mcg/kg per minute and Nimbex @ mcg kilogram per minute. The patient is quite secretions of the mechanical ventilator. At this point in time is an assist-control mode at the rate of 30, tidal volume of 450, FiO2 of 50% with a PEEP of 15. The patient continues to show diffuse bilateral pulmonary infiltrates. Chest x-ray was noted. Blood gases was noted and the patient's pH currently is at 7.49 with a pCO2 of 42 and pO2 of 62. His chest x-ray showed bilateral pulmonary infiltrates system was COVID 19 related pneumonia. Note of any pneumothorax. ET tube is sitting at least 3 cm above the charity.. The patient was kept on Decadron and he was also started on Baricitinib per protocol. The d-dimer during the course of the hospitalization was as high as 12 in the based on that the patient was placed on IV heparin on an empiric basis. The inflammatory markers were elevated and LDH was as high as 2929 and the levels have been gradually improving. The CRP level remains elevated at 8.7 the patient has normal renal function the chest x-ray from today shows bilateral pulmonary infiltrates, ET tube is at least 3 cm above the charity and the patient also has a left subclavian triple-lumen catheter in place. In terms of inflammatory markers, his LDH level is down to 999, the patient continues to have mild transaminitis, CRP is at 13.5. White cell count is 7.4. Her net fluid balance over the past several days has been -2.1 and later on 2.3 L as such the patient has been in a negative fluid balance and he has lost at least 6 kg On today's evaluation of 01/22/2021, patient is being seen for a follow-up. The patient is post COVID 19 related pneumonia with respiratory failure and the patient has been on mechanical ventilator, sedated and paralyzed. This morning, the patient is on propofol which is running at 50 mcg/kg per minute and Nimbex is running at 3 mcg/kg per minute. Patient is also on fentanyl at 1 mcg/kg/h. He is quite synchronous with the mechanical ventilator. On today's evaluation, the patient is an assist-control mode with a tidal volume of 400 FiO2 of 40%, PEEP of 13 and the patient has a respiratory rate of 30. The blood gases from today showed a pH of 7.42 with a pCO2 of 50 and pO2 of 65. The peak airway pressure on the mechanical ventilator is 21 which is considerably lower compared to yesterday. The chest x-ray from today is showing diffuse bilateral pulmonary infiltrates consistent with COVID 19 related pneumonia. ET tube is in a good location. No major interval change compared to yesterday. Meanwhile, the patient is still on a combination of Decadron and Baricitinib per protocol. Inflammatory markers have been gradually improving. The patient is LDH level is down to 954 and his CRP level is down to 6.8. The patient is a white cell count of 9.1 with a hemoglobin of 11.6. The patient's has some mild transaminitis which remains unchanged and the LFTs remain slightly elevated. Triglyceride level was 173 from yesterday. No fever. Most recent d-dimer is at 1.23. He is receiving enteral feeding for nutritional support in the form of white cell 1.2 at the rate of 26 mL an hour. He continues to make excellent urine output patient remains in a negative fluid balance of 2.2 L since yesterday. 01/23/2021, patient is being seen for a follow-up. The patient remains intubated on a mechanical ventilator. The patient remains sedated and paralyzed. The patient is a case of COVID 19 related pneumonia with respiratory failure. He has been on a mechanical ventilator since 01/14/2021. This morning, the patient is on propofol running at 75 mcg/kg per minute and the patient is also on fentanyl at 2 mcg/kg/h and the patient is also Nimbex running at 3 mcg/kg per minute. The patient is quite suggestive mechanical ventilator as of yesterday. The patient remains on a mechanical ventilator on assist control mode with a tidal volume of 400 and FiO2 of 40% and a PEEP of 12 which was gradually reduced and a respiratory rate of 30. The blood gases from today shows a pH of 7.45 with a pCO2 of 44 and pO2 of 72. The chest x-ray findings are essentially stable without any interval change compared to yesterday. ET tube remains in a good location. The patient remains on a combination of Decadron and Baricitinib per protocol. Aspergillus was cultured in the sputum which is probably a colonizer. We are repeating the sputum sample for now. The patient is afebrile. No significant leukocytosis the white cell count at 8.3. The rest of the labs are all stable. Normal renal function. He does have abnormalities in his liver function tests and there is some limited rise in the AST and ALP compared to yesterday and the levels being at around 28 and 153 respectively. The LDH level from yesterday was down to 954. The most recent d- dimer was at 1.23. The patient is on Lovenox for DVT prophylaxis. IV heparin was been discontinued. The peak airway pressures 25. The static pressure is 22 on today's evaluation. 01/24/2021, THE PATIENT IS BEING SEEN FOR A FOLLOW-UP IN THE INTENSIVE CARE UNIT. NOTE THAT THE PATIENT HAS BEEN ON A MECHANICAL VENTILATOR FOR 10 DAYS AT LEAST. THE PATIENT WAS PLACED ON A MECHANICAL VENTILATOR ON 01/14/2021. He was sedated and paralyzed. Based on all this, I made recommendations to proceed with a PEG and trach and the family was agreeable. As such the procedures were done yesterday without any major difficulties. The patient is currently off Nimbex. He remains sedated patient is currently on propofol which is running at 55 mcg/kg per minute. This morning, the patient was taken off the paralytics. He open up his eyes. He is not following any commands.. Nevertheless, he is doing sports as eye-opening and his looking around and trying to do some motor activity while laying down in bed. He remains on a mechanical ventilator. For now, the patient has a #[address] tube in [address]. In terms of his vent management, the patient remains on assist control mode at the rate of 30 with a tidal volume of 400 and FiO2 of 50% with a PEEP of 10. No significant orotracheal secretions. Nevertheless, the chest x-ray from today has shown some worsening in the bilateral pulmonary infiltrates more so in the lower lobes. Another concerning thing is that the patient has spiked a temperature and the T- max was 102 and the patient also has developed an acute leukocytosis with a white cell count of 17. Note that he was on a combination of Decadron and Baricitinib. The patient is also has cultures Aspergillus fumigatus in the sputum and the most recent sputum culture was positive for corynebacterium species. As such, infection is obviously a concern in this patient. Hemodynamically stable. Blood work from today shows a white cell count 17, hemoglobin is at 12.3 with a platelet count of 329. Blood gases from today showed a pH of 7.37 with a pCO2 of 50 and pO2 of 72. Sodium is at 1:30, BUN is at 21 with a creatinine of 0.8. LFTs are slightly abnormal with a ALT of 132, AST of 248 and these are essentially lower compared to yesterday's values. The LDH level is down to 954 from few days back. On today's chest x-ray, the tracheostomy tube is in a good location. Fluid balance over the past 24 hours has been in the order of -500 mL. He has been essentially developing a negative fluid balance as the patient is producing adequate amount of urine output over the past several days and this is without diuresis Objective - Vital Signs Vital signs: Vital Signs Temp 102.0 F H 01/24/21 08:00 Pulse 84 01/24/21 08:00 Resp 30 H 01/24/21 08:00 BP 81/53 01/24/21 08:00 Pulse Ox 94 L 01/24/21 08:00 Intake & Output 01/23/21 01/24/21 01/24/21 18:59 06:59 18:59 Intake Total 913.938 4212.044 322.9 Output Total 1680 910 40 Balance -741.020 232.044 282.9 Weight 102.1 kg 102.7 kg Intake: IV 92 312 26 Pressure Bags 72 72 6 Sodium Chloride 0.9% 1, 20 240 20 000 ml @ 20 mls/hr IV . Q24H [facility]AD[facility] Rx#:[id number] Intake, IV Titration 734.980 830.044 296.9 Amount Cisatracurium 200 mg In 179.135 114.4 196.9 Sodium Chloride 0.9% 180 ml @ 1 MCG/KG/MIN 6.6 mls /hr IV .Q24H [facility] Rx#: [id number] fentaNYL (PF). 1,000 mcg 200 155.203 In Sodium Chloride 0.9% 80 ml @ 0.5 MCG/KG/HR 5. 285 mls/hr IV .[id number] [facility]AD[facility] Rx#:[id number] propofoL 1,000 mg In 355.845 560.441 100 Empty Bag 1 bag @ Titrate IV .Q0M [facility]AD[facility] Rx#: [id number] Tube Feeding 52 Other 60 Output: Urine 1675 910 40 Estimated Blood Loss 5 Other: Voiding Method Indwelling Catheter Indwelling Catheter ABP, PAP, CO, CI - Last Documented Arterial Blood Pressure 92/47 - Exam Gen. appearance -No acute distress, sedated and not paralyzed , and the patient has a tracheostomy tube and #[address]iley tracheostomy tube in place. He seems to be opening his eyes spontaneously and moving. Is currently off paralytics. He still sedated. HEENT examination is grossly unremarkable. Neck supple. Full range of motion. No adenopathy thyromegaly or neck vein distention. Cardiac exam revealed the PMI to be normally situated and sized. The rhythm was regular and no extrasystoles were noted during several minutes of auscultation. The first and second heart sounds were normal and physiologic splitting of the second heart sound was noted. There were no murmurs, rubs, clicks, or gallops. Lungs reveal diffuse bilateral coarse rhonchi. Diffuse bilateral crackles. Breath sounds equal bilaterally. Breath sounds are unchanged. Saturations are 91%. Abdominal exam revealed normal bowel sounds. The abdomen was soft, non-tender, and without masses, organomegaly, or appreciable enlargement of the abdominal aorta. The PEG tube is in a good location and there is no abdominal distention. No bleeding around the PEG tube site. Extremities are intact. No cyanosis clubbing or edema. Examination of the skin revealed no evidence of significant rashes, suspicious appearing nevi or other concerning lesions.. Neurologic examination cannot be adequately assessed given the fact the patient is sedated and paralyzed. - Labs CBC & Chem 7: 01/24/21 03:55 01/24/21 03:55 Labs: Abnormal Lab Results - Last 24 Hours (Table) 01/23/21 01/24/21 01/24/21 Range/Units 13:16 03:55 03:55 WBC 17.2 H (3.8-10.6) k/uL RBC 4.03 L (4.30-5.90) m/uL Hgb 12.3 L (13.0-17.5) gm/dL Hct 36.8 L (39.0-53.0) % Neutrophils # 15.2 H (1.3-7.7) k/uL Lymphocytes # 0.8 L (1.0-4.8) k/uL ABG pCO2 (35-45) mmHg ABG pO2 (83-108) mmHg ABG HCO3 (21-25) mmol/L ABG Total CO2 (19-24) mmol/L Sodium 130 L (137-145) mmol/L BUN 21 H (9-20) mg/dL Glucose 123 H (74-99) mg/dL POC Glucose (mg/dL) 193 H (75-99) mg/dL Calcium 8.3 L (8.4-10.2) mg/dL Total Bilirubin 2.0 H (0.2-1.3) mg/dL ALT 248 H (4-49) U/L Alkaline Phosphatase 132 H (38-126) U/L Total Protein 5.8 L (6.3-8.2) g/dL Albumin 2.9 L (3.5-5.0) g/dL 01/24/21 Range/Units 05:40 WBC (3.8-10.6) k/uL RBC (4.30-5.90) m/uL Hgb (13.0-17.5) gm/dL Hct (39.0-53.0) % Neutrophils # (1.3-7.7) k/uL Lymphocytes # (1.0-4.8) k/uL ABG pCO2 50 H (35-45) mmHg ABG pO2 72 L (83-108) mmHg ABG HCO3 29 H (21-25) mmol/L ABG Total CO2 30 H (19-24) mmol/L Sodium (137-145) mmol/L BUN (9-20) mg/dL Glucose (74-99) mg/dL POC Glucose (mg/dL) (75-99) mg/dL Calcium (8.4-10.2) mg/dL Total Bilirubin (0.2-1.3) mg/dL ALT (4-49) U/L Alkaline Phosphatase (38-126) U/L Total Protein (6.3-8.2) g/dL Albumin (3.5-5.0) g/dL Microbiology - Last 24 Hours (Table) 01/21/21 20:18 Gram Stain - Preliminary Sputum Sputum Culture - Preliminary Corynebacterium species Assessment and Plan Plan: 1 Acute hypoxemic respiratory failure secondary to coronavirus associated pneumonia, with intubation and mechanical ventilation, initiated on January 14, for worsening hypoxemia. Noted the patient was initially on nasal cannula oxygen supplementation and following that the patient required BiPAP and ultimat bee the patient to be intubated on 01/14/2021 for respiratory failure secondary to COVID-19 related to pneumonia. Patient is currently on a combination of Decadron and Baricitinib per protocol. The patient is sedated and paralyzed. Chest x-ray was noted. Blood gases was noted. Inflammatory markers including LDH continued to improve. Due to his prolonged respiratory failure, the patient underwent a tracheostomy tube insertion yesterday and this was performed on 01/23/2021. The procedure was not successful and the patient has a #[address] trache[address] tube in place for now. Meanwhile, there is a concern of a superinfection as the patient spiked a fever and he has developed leukocytosis and the patient Aspergillus and charity bacterium and the lungs based on the sputum cultures. Colonization versus infection is being entertained although infections becoming more possible based on new infiltration of the lungs, fever and leukocytosis. 2 Acute respiratory distress syndrome (ARDS), secondary to coronavirus associated pneumonia. 3 Previous history of bilateral pulmonary emboli, and left leg DVT, 2016, currently on Lovenox. 4 History of osteoarthritis. 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 The patient is a tracheostomy tube in place for now. I'm going to switch him to ABC plus mode and keep the tidal volume of 400, dropped a respiratory rate down to 22, inspiratory time is at 0.8 seconds and keep the FiO2 of 50% with a PEEP of 10. We'll monitor the blood gases. Tracheostomy tube is in a good location. Chest x-ray showing some interval worsening of the patient's condition is stable over infection is of concern and the patient will be started on broad-spectrum antibiotics. Check pro calcitonin level Start the patient on voriconazole and monitor LFTs Start the patient on IV cefepime Monitor fever pattern Monitor white count Stop the Baricitinib and continue the Decadron for now Enteral feeding will be started 24 hours after insertion of the PEG Lovenox 40 mg SC prophylaxis We'll continue to follow make further recommendations based on his progress. Condition remains critical. The has been updated on his condition. I had a lengthy discussion with her. This evaluation was done and more than 30 jessie walt. Time with Patient: Greater than 30 Time with Patient: Greater than 30
[2021-01-24] MEDS: CEFEPIME 2 GM in SODIUM CHLORIDE 0.9% 100 ML IVPB SCH ×2 (09:14→16:04)
[2021-01-24] MEDS ORDERED: SODIUM CHLORIDE 0.9% 1,000 ML IV ONE (09:39)
[2021-01-24] MEDS: ASCORBIC ACID 500 MG TAB PO SCH (09:40)
[2021-01-24] MEDS: LACTULOSE 20 GM/30 ML CUP PO SCH (09:40)
[2021-01-24] MEDS: CHOLECALCIFEROL 25 MCG (1000 IU) TABLET PO SCH (09:40)
[2021-01-24] MEDS: ZINC SULFATE 220 MG CAP PO SCH (09:41)
[2021-01-24] MEDS: VORICONAZOLE 200 MG in SODIUM CHLORIDE 0.9% 100 ML IVPB SCH ×2 (09:58→22:50)
--- NOTE | 2021-01-24 10:18 | XR ---
EXAMINATION TYPE: XR chest 1V portable DATE OF EXAM: 01/24/2021 COMPARISON: 01/23/2021 HISTORY: Cough TECHNIQUE: Single frontal view of the chest is obtained. FINDINGS: Tracheostomy tube is new from prior exam with the tip at the proximal thoracic level. Post surgical change cervical spine. NG tube is been removed. Central line stable. Diffuse bilateral infil trate and small effusion stable. Heart enlarged. No pneumothorax. IMPRESSION: Diffuse bilateral infiltrate stable.
[2021-01-24] MEDS: DEXMEDETOMIDINE/0.9% NACL(PMX) 400 MCG in EMPTY BAG 1 BAG IV SCH ×2 (11:25→19:54)
[2021-01-24 12:59] LABS: Glucose,Whole Blood 153 mg/dL (75-99)
--- NOTE | 2021-01-24 14:19 | P.PN ---
Subjective Progress Note Date: 01/23/21 HISTORY OF PRESENT ILLNESS This is a 55-year-old male patient of Dr. 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 Patient states he has not been feeling well since Thursday. He said shortness of breath cough is nonproductive along with fever and chills, exertional dyspnea. He denies having any nausea vomiting or diarrhea. He denies any close contacts to known Covid people. He states his temperature is been up to 102.7 at home. He is not vaccinated. Patient presented to [facility] emergency center and found to be febrile at 101.1, heart rate 90, blood pressure 122/80, pulse ox 85% on room air. CBC revealed platelet count of 128. D-dimer 0.82. Sodium 131 otherwise electrolytes and renal function were normal. Blood sugar 147. Troponin negative. Coronavirus PCR positive. Chest x-ray reveals patchy bilateral airspace disease especially in the mid and lower lungs. Correlate for multifocal pneumonia including Covid 19 pneumonia. CTA of the chest was suboptimal study without central acute pulmonary embolism. Bilateral multifocal and confluent groundglass opacities right greater than left and greater in the lower lungs consistent with known Covid 19 infection. Patient is seen today in the emergency center waiting for bed on the [facility] floor, started on Remdesivir, Lovenox, dexamethasone and vitamin supplements, consult with pulmonary medicine. 01/12: Patient is comfortable, however he requires 40 L of oxygen via airvo sats 88-89%, he feels better today compared to his nonrebreather mask yesterday, patient did not sleep well, patient does not have any cough, however he does have shortness of breath. Patient denies any aspiration, appetite is still marginal, patient has insomnia vitals, blood sugar currently is 243, creatinine of 0.98, d-dimer is 0.84, CRP is elevated, LDH is elevated, venous Doppler, shows chronic DVT, left popliteal, in the posterior tibial veins, without any obstruction of flow. No acute DVT identified CTA, shows suboptimal, without central acute pulmonary emboli, has bilateral multifocal and confluent groundglass opacities, right greater than left, lower lobe, consistent with COVID-19 infection and remdesivir discontinued by pulmonary today and is outside of the window for remdesivir 01/13: Patient is on aerosol 14 L, with nonrebreather mask, 15 L, hypoxemia n oted on 88%, worse with coughing, however his nonrebreather mask is very loose. Nurse is worriedwith the turn of events, and requested an ICU transfer, Dr. Canales has seen the patient, and is stable for floor management at this time, patient is not significant tachypnea, and is not tiring out. There is no hemoptysis, and mucus is productive, patient's doing incentive spirometry, up 2 L. 01/14: Patient remains in the intensive care unit, he was intubated this morning as he was desaturating with BiPAP. He has been afebrile, heart rate 73, blood pressure 93/47, pulse ox 90%. CBC is unremarkable. D-dimer 12.04. Sodium 135, creatinine 0.82. LDH 2929, C-reactive protein 5.2. Sputum culture is in progress. He has had good urine output. Chest x-ray reveals no evident convocation from catheters. Bilateral airspace disease. 01/15: Patient remains in the intensive care intubated and on mechanical ventilation with tidal volume 450, FiO2 80, PEEP of 15. Patient has been started on norepinephrine and remains on propofol, heparin drip, Nimbex. Repeat blood work revealed unremarkable CBC. Creatinine 0.88. Capillary blood glucose running between 195 and 215. AST 126, ALT 183, alkaline phosphatase 109. Sputum culture is in progress. Repeat chest x-ray reveals correlate for pneumonia versus edema, ARDS. Patient is continued on vitamin supplements, heparin drip, dexamethasone and Baricitinib. patient remains in intensive care intubated on mechanical ventilator at FiO2 60 percent PEEP respiratory rate of 30 tidal volume 450. Continues to maintain saturations between 94-95% on the current settings. Vitals otherwise stable labs reviewed today WBC is 9.5 hemoglobin 12.4 d-dimer is elevated at 4.98. ABG obtained today suggest pH of 7.4 pO2 53 bicarb 26 on 50% FiO2. Creatinine stable at 0.78 glucose is maintained between 145-190. LDH 1564 CRP is elevated at 4. Patient's inflammatory markers trending down. Patient's vent settings increased to 80% for inadequate oxygenation. Chest x-ray reviewed showed bilateral infiltrate consistent with coronavirus associated pneumonia. Patient continues intubated on propofol 70 bike but patient examined Nimbex 1.25 g daily per minute. Patient to receive 1 dose of Lasix today. Continue to remain on baricitinib day 2 PAtient remains intubaated since . patient continues too remain on assist control, TV 450 , peep 15 and fio2 of 60 %. patient was proned for 16 hours yesterday. CXR was reviewed, COVID pneumonia but no significant change was noted, Will repeat inflammatory markers tomorrow. Vent managment per talent acquisition specialist. Patient contines to remain propofol , nimbex. Continue on lovenox, baricitinib, dexamethasone and vit supplement 01/18 patient continues to remain intubated. Covid pneumonia. Is currently on assist control respiratory rate of 30 tidal volume 450 FiO2 of 55% and PEEP of 15. She is currently on heparin drip, propofol and Nimbex. Patient continues to tolerate prone positioning 16 hours overnight. Continues to receive dexamethasone, vitamin supplement, anticoagulation with heparin, baricitinib. Labs are reviewed patient has a hemoglobin stable at 12.2. This morning pH 7.48 PCO2 44 bicarb 32 creatinine 0.73 AST 100 chest x-ray done this morning suggestive of ARDS and pneumonia 01/19 patient continues to remain intubated currently on assist-control vent with a rate of 30 tidal volume 450 FiO2 50 and PEEP of 15. Continues to remain on propofol and Nimbex. Continue heparin drip for anticoagulation. Remains on Baricitinib , vitamin supplementation and dexamethasone. Labs reviewed hemoglobin stable at 12 PTT 53 blood gas obtained today suggest a pH of 7.45 pCO2 46 pO2 69 bicarb 32 BUN 23 creatinine 0.0.8 glucose 122 AST ED ALT 226. inflammation markers ordered for tomorrow last set was obtained on 01/12 01/20 Intubated. Vitals reviewed patient's afebrile pulse of 68 respiratory rate 30 blood pressure. 94/56 oxygen 91% on 50% FiO2. Patient remains on assist control, tidal volume 450 respiratory rate 30 FiO2 of 50% and PEEP of 15. He is currently on Pneumovax at 3 mics per KG per minute propofol at 50 Micro-K to Coumadin and heparin drip. Patient labs are reviewed hemoglobin is 11.7. Arterial blood gas at 50% FiO2 has a pH of 7.47 pO2 of 77 bicarb of 31 BUN 24 creatinine 0.7 LDH [id number] CRP 8.70. CRP is slightly elevated with improvement in LDH. Continue to monitor patient with the goal with treatment on heparin, as dexamethasone, vitamin supplementation and Baricitinib . Blood sugar are well controlled. 01/21: Patient remains intubated and on mechanical ventilation with tidal volume 400, FiO2 40 and PEEP of 16. Patient is on propofol and fentanyl drips. He is on tube feedings to be increased to 26 ML's per hour and tolerating. She he has had 100 250 ML's of urine output per hour. He has been afebrile, heart rate 70, respiratory rate 30, blood pressure 115/64, pulse ox 93%. Repeat blood work reveals WBC 7.4, hemoglobin 12, platelet count 310. D-dimer 1.23. Sodium 134, BUN 24 and creatinine 0.73. Blood sugars are running between 101 and 164. AST 105, ALT 261, alkaline phosphatase 135. LDH 999. C-reactive protein 13.5. Albumin 2.9. Gallbladder ultrasound reveals nonspecific pattern of liver can be seen with hepatic steatitis or hepatocellular disease including hepatitis. The chest x-ray reveals bilateral patchy airspace disease stable. 01/22: Remains in the intensive care unit intubated and on mechanical ventilation with tidal volume 400, FiO2 40, PEEP of 13. Paralytics for pause this morning and patient had significant drop in his pulse ox. He is currently on propofol, fentanyl and Nimbex. He has been afebrile, heart rate 73, blood pressure 99/63, pulse ox 90%. Repeat blood work reveals hemoglobin 11.6. Creatinine 0.81. Blood sugars are running between 98 and 155. AST 85, ALT 260, alkaline phosphatase 132. LDH 954, C-reactive protein 6.8. Repeat chest x-ray reveals bilateral patchy diffuse airspace disease stable. Patient is continued on Baricitinib, Lovenox 40 mg subcu daily, dexamethasone 6 mg IV push and vitamin supplements 01/23: Remains in the intensive care unit on mechanical ventilation with tidal volume 400, FiO2 40 and PEEP of 10. Patient is scheduled for trach and PEG tube placement today. He is currently on propofol, fentanyl and Nimbex. Patient remains afebrile, heart rate 69, respiratory rate 30, blood pressure 120/76, pulse ox 93%. Repeat blood work reveals creatinine is 0.71. WBC 8.3, hemoglobin 12.9. AST 111, ALT 328, alkaline phosphatase 153. Blood sugars have been running between 92 and 193. Sputum culture is showing Corynebacterium species from 01/21 and as for callus from 01/14. Repeat chest x-ray reveals bilateral patchy diffuse airspace disease stable. Patient is continued on Baricitinib, Lovenox 40 mg subcu daily, dexamethasone 6 mg IV push and vitamin supplements REVIEW OF SYSTEMS Unable to obtain due to intubation PHYSICAL EXAMINATION Gen: This is a 55-year-old male. He is resting in ICU bed, intubated and on mechanical ventilation, appears to be comfortable. Full examination deferred to the intensive due to intubation and Covid 19. ASSESSMENT AND PLAN 1. Acute hypoxic respiratory failure secondary to Covid 19 pneumonia. Patient required intubation 01/14. Patient is scheduled for trach and PEG tube placement today. Patient started on Remdesivir was discontinued by pulmonary, on January 12/2021 started on baricinib 4 mg daily, continue Baricitinib, Lovenox 40 mg subcu daily, dexamethasone 6 mg IV push and vitamin supplements, ventilatory management per talent acquisition specialist. 2. Acute respiratory distress syndrome secondary to coronavirus pneumonia. 3. History of bilateral pulmonary emboli and DVT in 2016. CTA negative for PE. Not on chronic anticoagulation, patient started on heparin drip 4. Generalized osteoarthritis. 5. Degenerative changes in the cervical spine status post fusion of C5-6. 6. 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 7. Elevated liver function tests, transaminitis. 8. GI prophylaxis. Protonix. 9. DVT prophylaxis. Lovenox. DISCHARGE PLAN Home. vs IP rehab . will expect to stay here for covid protracted length of time Impression and plan of care have been directed as dictated by the signing physician. Shakila Mosqueda nurse practitioner acting as scribe for signing [email or web address] [email or web address]. Objective - Vital Signs Vital signs: Vital Signs Temp 98.8 F 01/23/21 08:00 Pulse 72 01/23/21 10:00 Resp 30 H 01/23/21 10:00 BP 126/77 01/23/21 10:00 Pulse Ox 92 L 01/23/21 10:00 Intake & Output 01/22/21 01/23/21 01/23/21 18:59 06:59 18:59 Intake Total 1914.821 6217.441 455.835 Output Total 1810 2350 525 Balance -452.039 -820.559 -69.165 Weight 102.1 kg 102.1 kg Intake: IV 220 306 44 Pressure Bags 66 24 Sodium Chloride 0.9% 1, 220 240 20 000 ml @ 20 mls/hr IV . Q24H BRADY Rx#:[id number] Intake, IV Titration 571.961 791.441 299.835 Amount Cisatracurium 200 mg In 200.00 154.11 143.99 Sodium Chloride 0.9% 180 ml @ 1 MCG/KG/MIN 6.6 mls /hr IV .Q24H BRADY Rx#: [id number] fentaNYL (PF). 1,000 mcg 176.696 155.643 In Sodium Chloride 0.9% 80 ml @ 0.5 MCG/KG/HR 5. 285 mls/hr IV .[id number] BRADY Rx#:[id number] propofoL 1,000 mg In 195.265 481.688 155.845 Empty Bag 1 bag @ Titrate IV .Q0M BRADY Rx#: [id number] Tube Feeding 286 312 52 Other 280 120 60 Output: Urine 1810 2350 525 Other: Voiding Method Indwelling Catheter Indwelling Catheter Indwelling Catheter ABP, PAP, CO, CI - Last Documented Arterial Blood Pressure 153/70 - Labs CBC & Chem 7: 01/24/21 03:55 01/24/21 03:55 Labs: Abnormal Lab Results - Last 24 Hours (Table) 01/22/21 01/22/21 01/22/21 Range/Units 11:45 12:47 17:38 RBC (4.30-5.90) m/uL Hgb (13.0-17.5) gm/dL Hct (39.0-53.0) % ABG pCO2 51 H (35-45) mmHg ABG pO2 68 L (83-108) mmHg ABG HCO3 31 H (21-25) mmol/L ABG Total CO2 33 H (19-24) mmol/L ABG O2 Saturation 93.2 L (94-97) % Sodium (137-145) mmol/L Glucose (74-99) mg/dL POC Glucose (mg/dL) 155 H 149 H (75-99) mg/dL AST (17-59) U/L ALT (4-49) U/L Alkaline Phosphatase (38-126) U/L Total Protein (6.3-8.2) g/dL Albumin (3.5-5.0) g/dL 01/23/21 01/23/21 01/23/21 Range/Units 04:00 04:00 05:51 RBC 4.17 L (4.30-5.90) m/uL Hgb 12.9 L (13.0-17.5) gm/dL Hct 38.5 L (39.0-53.0) % ABG pCO2 (35-45) mmHg ABG pO2 72 L (83-108) mmHg ABG HCO3 30 H (21-25) mmol/L ABG Total CO2 31 H (19-24) mmol/L ABG O2 Saturation (94-97) % Sodium 136 L (137-145) mmol/L Glucose 125 H (74-99) mg/dL POC Glucose (mg/dL) (75-99) mg/dL AST 111 H (17-59) U/L ALT 328 H (4-49) U/L Alkaline Phosphatase 153 H (38-126) U/L Total Protein 6.0 L (6.3-8.2) g/dL Albumin 3.0 L (3.5-5.0) g/dL Microbiology - Last 24 Hours (Table) 01/21/21 20:18 Gram Stain - Preliminary Sputum Sputum Culture - Preliminary
--- NOTE | 2021-01-24 14:26 | P.PN ---
Subjective Progress Note Date: 01/24/21 HISTORY OF PRESENT ILLNESS This is a 55-year-old male patient of Dr. 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 Patient states he has not been feeling well since Thursday. He said shortness of breath cough is nonproductive along with fever and chills, exertional dyspnea. He denies having any nausea vomiting or diarrhea. He denies any close contacts to known Covid people. He states his temperature is been up to 102.7 at home. He is not vaccinated. Patient presented to [facility] emergency center and found to be febrile at 101.1, heart rate 90, blood pressure 122/80, pulse ox 85% on room air. CBC revealed platelet count of 128. D-dimer 0.82. Sodium 131 otherwise electrolytes and renal function were normal. Blood sugar 147. Troponin negative. Coronavirus PCR positive. Chest x-ray reveals patchy bilateral airspace disease especially in the mid and lower lungs. Correlate for multifocal pneumonia including Covid 19 pneumonia. CTA of the chest was suboptimal study without central acute pulmonary embolism. Bilateral multifocal and confluent groundglass opacities right greater than left and greater in the lower lungs consistent with known Covid 19 infection. Patient is seen today in the emergency center waiting for bed on the [facility] floor, started on Remdesivir, Lovenox, dexamethasone and vitamin supplements, consult with pulmonary medicine. 01/12: Patient is comfortable, however he requires 40 L of oxygen via airvo sats 88-89%, he feels better today compared to his nonrebreather mask yesterday, patient did not sleep well, patient does not have any cough, however he does have shortness of breath. Patient denies any aspiration, appetite is still marginal, patient has insomnia vitals, blood sugar currently is 243, creatinine of 0.98, d-dimer is 0.84, CRP is elevated, LDH is elevated, venous Doppler, shows chronic DVT, left popliteal, in the posterior tibial veins, without any obstruction of flow. No acute DVT identified CTA, shows suboptimal, without central acute pulmonary emboli, has bilateral multifocal and confluent groundglass opacities, right greater than left, lower lobe, consistent with COVID-19 infection and remdesivir discontinued by pulmonary today and is outside of the window for remdesivir 01/13: Patient is on aerosol 14 L, with nonrebreather mask, 15 L, hypoxemia n oted on 88%, worse with coughing, however his nonrebreather mask is very loose. Nurse is worriedwith the turn of events, and requested an ICU transfer, Dr. Canales has seen the patient, and is stable for floor management at this time, patient is not significant tachypnea, and is not tiring out. There is no hemoptysis, and mucus is productive, patient's doing incentive spirometry, up 2 L. 01/14: Patient remains in the intensive care unit, he was intubated this morning as he was desaturating with BiPAP. He has been afebrile, heart rate 73, blood pressure 93/47, pulse ox 90%. CBC is unremarkable. D-dimer 12.04. Sodium 135, creatinine 0.82. LDH 2929, C-reactive protein 5.2. Sputum culture is in progress. He has had good urine output. Chest x-ray reveals no evident convocation from catheters. Bilateral airspace disease. 01/15: Patient remains in the intensive care intubated and on mechanical ventilation with tidal volume 450, FiO2 80, PEEP of 15. Patient has been started on norepinephrine and remains on propofol, heparin drip, Nimbex. Repeat blood work revealed unremarkable CBC. Creatinine 0.88. Capillary blood glucose running between 195 and 215. AST 126, ALT 183, alkaline phosphatase 109. Sputum culture is in progress. Repeat chest x-ray reveals correlate for pneumonia versus edema, ARDS. Patient is continued on vitamin supplements, heparin drip, dexamethasone and Baricitinib. patient remains in intensive care intubated on mechanical ventilator at FiO2 60 percent PEEP respiratory rate of 30 tidal volume 450. Continues to maintain saturations between 94-95% on the current settings. Vitals otherwise stable labs reviewed today WBC is 9.5 hemoglobin 12.4 d-dimer is elevated at 4.98. ABG obtained today suggest pH of 7.4 pO2 53 bicarb 26 on 50% FiO2. Creatinine stable at 0.78 glucose is maintained between 145-190. LDH 1564 CRP is elevated at 4. Patient's inflammatory markers trending down. Patient's vent settings increased to 80% for inadequate oxygenation. Chest x-ray reviewed showed bilateral infiltrate consistent with coronavirus associated pneumonia. Patient continues intubated on propofol 70 bike but patient examined Nimbex 1.25 g daily per minute. Patient to receive 1 dose of Lasix today. Continue to remain on baricitinib day 2 PAtient remains intubaated since . patient continues too remain on assist control, TV 450 , peep 15 and fio2 of 60 %. patient was proned for 16 hours yesterday. CXR was reviewed, COVID pneumonia but no significant change was noted, Will repeat inflammatory markers tomorrow. Vent managment per panel lay up worker. Patient contines to remain propofol , nimbex. Continue on lovenox, baricitinib, dexamethasone and vit supplement 01/18 patient continues to remain intubated. Covid pneumonia. Is currently on assist control respiratory rate of 30 tidal volume 450 FiO2 of 55% and PEEP of 15. She is currently on heparin drip, propofol and Nimbex. Patient continues to tolerate prone positioning 16 hours overnight. Continues to receive dexamethasone, vitamin supplement, anticoagulation with heparin, baricitinib. Labs are reviewed patient has a hemoglobin stable at 12.2. This morning pH 7.48 PCO2 44 bicarb 32 creatinine 0.73 AST 100 chest x-ray done this morning suggestive of ARDS and pneumonia 01/19 patient continues to remain intubated currently on assist-control vent with a rate of 30 tidal volume 450 FiO2 50 and PEEP of 15. Continues to remain on propofol and Nimbex. Continue heparin drip for anticoagulation. Remains on Baricitinib , vitamin supplementation and dexamethasone. Labs reviewed hemoglobin stable at 12 PTT 53 blood gas obtained today suggest a pH of 7.45 pCO2 46 pO2 69 bicarb 32 BUN 23 creatinine 0.0.8 glucose 122 AST ED ALT 226. inflammation markers ordered for tomorrow last set was obtained on 01/12 01/20 Intubated. Vitals reviewed patient's afebrile pulse of 68 respiratory rate 30 blood pressure. 94/56 oxygen 91% on 50% FiO2. Patient remains on assist control, tidal volume 450 respiratory rate 30 FiO2 of 50% and PEEP of 15. He is currently on Pneumovax at 3 mics per KG per minute propofol at 50 Micro-K to Coumadin and heparin drip. Patient labs are reviewed hemoglobin is 11.7. Arterial blood gas at 50% FiO2 has a pH of 7.47 pO2 of 77 bicarb of 31 BUN 24 creatinine 0.7 LDH [id number] CRP 8.70. CRP is slightly elevated with improvement in LDH. Continue to monitor patient with the goal with treatment on heparin, as dexamethasone, vitamin supplementation and Baricitinib . Blood sugar are well controlled. 01/21: Patient remains intubated and on mechanical ventilation with tidal volume 400, FiO2 40 and PEEP of 16. Patient is on propofol and fentanyl drips. He is on tube feedings to be increased to 26 ML's per hour and tolerating. She he has had 100 250 ML's of urine output per hour. He has been afebrile, heart rate 70, respiratory rate 30, blood pressure 115/64, pulse ox 93%. Repeat blood work reveals WBC 7.4, hemoglobin 12, platelet count 310. D-dimer 1.23. Sodium 134, BUN 24 and creatinine 0.73. Blood sugars are running between 101 and 164. AST 105, ALT 261, alkaline phosphatase 135. LDH 999. C-reactive protein 13.5. Albumin 2.9. Gallbladder ultrasound reveals nonspecific pattern of liver can be seen with hepatic steatitis or hepatocellular disease including hepatitis. The chest x-ray reveals bilateral patchy airspace disease stable. 01/22: Remains in the intensive care unit intubated and on mechanical ventilation with tidal volume 400, FiO2 40, PEEP of 13. Paralytics for pause this morning and patient had significant drop in his pulse ox. He is currently on propofol, fentanyl and Nimbex. He has been afebrile, heart rate 73, blood pressure 99/63, pulse ox 90%. Repeat blood work reveals hemoglobin 11.6. Creatinine 0.81. Blood sugars are running between 98 and 155. AST 85, ALT 260, alkaline phosphatase 132. LDH 954, C-reactive protein 6.8. Repeat chest x-ray reveals bilateral patchy diffuse airspace disease stable. Patient is continued on Baricitinib, Lovenox 40 mg subcu daily, dexamethasone 6 mg IV push and vitamin supplements 01/23: Remains in the intensive care unit on mechanical ventilation with tidal volume 400, FiO2 40 and PEEP of 10. Patient is scheduled for trach and PEG tube placement today. He is currently on propofol, fentanyl and Nimbex. Patient remains afebrile, heart rate 69, respiratory rate 30, blood pressure 120/76, pulse ox 93%. Repeat blood work reveals creatinine is 0.71. WBC 8.3, hemoglobin 12.9. AST 111, ALT 328, alkaline phosphatase 153. Blood sugars have been running between 92 and 193. Sputum culture is showing Corynebacterium species from 01/21 and Aspergillus from 01/14. Repeat chest x-ray reveals bilateral patchy diffuse airspace disease stable. Patient is continued on Baricitinib, Lovenox 40 mg subcu daily, dexamethasone 6 mg IV push and vitamin supplements 01/24: Patient is status post trach and PEG tube done yesterday by Dr. Olivares. Patient is off Nimbex and he has his eyes open but not following commands. Patient's is planning to come in today to see him. He remains on ventilator with tidal volume 300, FiO2 50 and PEEP of 10. Repeat chest x-ray reveals diffuse bilateral infiltrate stable. Antibiotics have been changed to ce fepime and patient started on IV Voriconazole. Patient is continued on dexamethasone, Lovenox and vitamin supplements. WBC 17.2, hemoglobin 12.3. Sodium 130, BUN 21 creatinine 0.83. Total bilirubin 2, AST 54, ALT 248, alkaline phosphatase 132. Capillary blood glucose running between 80 and 193. REVIEW OF SYSTEMS. Unable to obtain due to mechanical ventilation PHYSICAL EXAMINATION Gen: This is a 55-year-old male. He is resting in ICU bed, intubated and on mechanical ventilation, appears to be comfortable. Full examination deferred to the intensive due to mechanical ventilation and Covid 19. ASSESSMENT AND PLAN 1. Acute hypoxic respiratory failure secondary to Covid 19 pneumonia. Patient required intubation 01/14. Patient is status post trach and PEG tube placement 01/[address] Olivares. Patient started on Remdesivir was discontinued by pulmonary, on January 12/2021 started on baricinib 4 mg daily, continue Baricitinib, Lovenox 40 mg subcu daily, dexamethasone 6 mg IV push and vitamin supplements, ventilatory management per panel lay up worker. 2. Acute respiratory distress syndrome secondary to coronavirus pneumonia. 3. History of bilateral pulmonary emboli and DVT in 2016. CTA negative for PE. Not on chronic anticoagulation, patient started on heparin drip 4. Generalized osteoarthritis. 5. Degenerative changes in the cervical spine status post fusion of C5-6. 6. 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 7. Elevated liver function tests, transaminitis. 8. GI prophylaxis. Protonix. 9. DVT prophylaxis. Lovenox. DISCHARGE PLAN Home. vs IP rehab . will expect to stay here for covid protracted length of time Impression and plan of care have been directed as dictated by the signing physician. Shakila Mosqueda nurse practitioner acting as scribe for signing physician. Objective - Vital Signs Vital signs: Vital Signs Temp 102.0 F H 01/24/21 08:00 Pulse 98 01/24/21 10:00 Resp 31 H 01/24/21 10:00 BP 81/51 01/24/21 10:00 Pulse Ox 89 L 01/24/21 10:00 Intake & Output 01/23/21 01/24/21 01/24/21 18:59 06:59 18:59 Intake Total 069.471 4377.044 1556.574 Output Total 1680 910 190 Balance -741.020 283.535 0807.574 Weight 102.1 kg 102.7 kg 102.7 kg Intake: IV 92 312 104 Pressure Bags 72 72 24 Sodium Chloride 0.9% 1, 20 240 80 000 ml @ 20 mls/hr IV . Q24H [facility] Rx#:[id number] Intake, IV Titration 734.980 147.343 4951.574 Amount Cisatracurium 200 mg In 179.135 114.4 196.9 Sodium Chloride 0.9% 180 ml @ 1 MCG/KG/MIN 6.6 mls /hr IV .Q24H [facility] Rx#: [id number] Sodium Chloride 0.9% 1, 1000 000 ml @ 999 mls/hr IV . Q1H1M [facility] Rx#:[id number] fentaNYL (PF). 1,000 mcg 200 155.203 69.611 In Sodium Chloride 0.9% 80 ml @ 0.5 MCG/KG/HR 5. 285 mls/hr IV .[id number] [facility] Rx#:[id number] propofoL 1,000 mg In 355.845 560.441 186.063 Empty Bag 1 bag @ Titrate IV .Q0M [facility] Rx#: [id number] Tube Feeding 52 Other 60 Output: Urine 1675 910 190 Estimated Blood Loss 5 Other: Voiding Method Indwelling Catheter Indwelling Catheter ABP, PAP, CO, CI - Last Documented Arterial Blood Pressure 71/33 - Labs CBC & Chem 7: 01/24/21 03:55 01/24/21 03:55 Labs: Abnormal Lab Results - Last 24 Hours (Table) 01/23/21 01/24/21 01/24/21 Range/Units 13:16 03:55 03:55 WBC 17.2 H (3.8-10.6) k/uL RBC 4.03 L (4.30-5.90) m/uL Hgb 12.3 L (13.0-17.5) gm/dL Hct 36.8 L (39.0-53.0) % Neutrophils # 15.2 H (1.3-7.7) k/uL Lymphocytes # 0.8 L (1.0-4.8) k/uL ABG pCO2 (35-45) mmHg ABG pO2 (83-108) mmHg ABG HCO3 (21-25) mmol/L ABG Total CO2 (19-24) mmol/L Sodium 130 L (137-145) mmol/L BUN 21 H (9-20) mg/dL Glucose 123 H (74-99) mg/dL POC Glucose (mg/dL) 193 H (75-99) mg/dL Calcium 8.3 L (8.4-10.2) mg/dL Total Bilirubin 2.0 H (0.2-1.3) mg/dL ALT 248 H (4-49) U/L Alkaline Phosphatase 132 H (38-126) U/L Total Protein 5.8 L (6.3-8.2) g/dL Albumin 2.9 L (3.5-5.0) g/dL 01/24/21 Range/Units 05:40 WBC (3.8-10.6) k/uL RBC (4.30-5.90) m/uL Hgb (13.0-17.5) gm/dL Hct (39.0-53.0) % Neutrophils # (1.3-7.7) k/uL Lymphocytes # (1.0-4.8) k/uL ABG pCO2 50 H (35-45) mmHg ABG pO2 72 L (83-108) mmHg ABG HCO3 29 H (21-25) mmol/L ABG Total CO2 30 H (19-24) mmol/L Sodium (137-145) mmol/L BUN (9-20) mg/dL Glucose (74-99) mg/dL POC Glucose (mg/dL) (75-99) mg/dL Calcium (8.4-10.2) mg/dL Total Bilirubin (0.2-1.3) mg/dL ALT (4-49) U/L Alkaline Phosphatase (38-126) U/L Total Protein (6.3-8.2) g/dL Albumin (3.5-5.0) g/dL Microbiology - Last 24 Hours (Table) 01/21/21 20:18 Gram Stain - Final Sputum Sputum Culture - Final Corynebacterium species
--- NOTE | 2021-01-24 15:03 | P.PN ---
Subjective Progress Note Date: 01/24/21 CHIEF COMPLAINT: COVID-19 pneumonia HISTORY OF PRESENT ILLNESS: Patient remains in the ICU. He is being weaned off of sedation. He status post trach and PEG tube placement. Patient does have some bleeding noted around tracheostomy site. And some dried blood around the PEG tube site. Per nursing staff they've noticed some air escaping from the tracheostomy. Oxygen saturation intact. Patient was hypotensive and had a fever of 102. They had started him on antibiotics, given a fluid bolus and ord ered blood cultures. WBC is up to 17.2 Hgb 12.3 platelets 329 PHYSICAL EXAM: VITAL SIGNS: Reviewed. GENERAL: Well-developed in no acute distress. HEENT: No sclera icterus. Extraocular movements grossly intact. Moist buccal mucosa. Head is atraumatic, normocephalic. Bleeding from tracheostomy site ABDOMEN: Soft. Nondistended. Nontender. PEG tube site with dried blood noted NEUROLOGIC: Alert and oriented. Cranial nerves II through XII grossly intact. ASSESSMENT: 1. Acute hypoxic respiratory failure secondary to COVID-19 pneumonia status post tracheostomy placement 2. Severe protein calorie malnutrition status post PEG tube placement PLAN: -Okay to initiate PEG tube feedings -Continue to monitor tracheostomy -Continue ICU management -Continue supportive care Physician Resource Forester note has been reviewed by physician. Signing provider agrees with the documented findings, assessment, and plan of care. Objective - Vital Signs Vital signs: Vital Signs Temp 101.7 F H 01/24/21 10:00 Pulse 76 01/24/21 13:00 Resp 32 H 01/24/21 13:00 BP 91/54 01/24/21 13:00 Pulse Ox 94 L 01/24/21 13:00 Intake & Output 01/23/21 01/24/21 01/24/21 18:59 06:59 18:59 Intake Total 530.472 7735.044 1720.140 Output Total 1680 910 410 Balance -741.020 693.408 5694.140 Weight 102.1 kg 102.7 kg 102.7 kg Intake: IV 92 312 208 Pressure Bags 72 72 48 Sodium Chloride 0.9% 1, 20 240 160 000 ml @ 20 mls/hr IV . Q24H ON LICENSE OF [facility] Rx#:[id number] Intake, IV Titration 734.980 449.842 4899.140 Amount Cisatracurium 200 mg In 179.135 114.4 196.9 Sodium Chloride 0.9% 180 ml @ 1 MCG/KG/MIN 6.6 mls /hr IV .Q24H ON LICENSE OF [facility] Rx#: [id number] Sodium Chloride 0.9% 1, 1000 000 ml @ 999 mls/hr IV . Q1H1M [facility] Rx#:[id number] fentaNYL (PF). 1,000 mcg 200 155.203 69.611 In Sodium Chloride 0.9% 80 ml @ 0.5 MCG/KG/HR 5. 285 mls/hr IV .[id number] ON LICENSE OF [facility] Rx#:[id number] propofoL 1,000 mg In 355.845 560.441 245.629 Empty Bag 1 bag @ Titrate IV .Q0M ON LICENSE OF [facility] Rx#: [id number] Tube Feeding 52 Other 60 Output: Urine 1675 910 410 Estimated Blood Loss 5 Other: Voiding Method Indwelling Catheter Indwelling Catheter ABP, PAP, CO, CI - Last Documented Arterial Blood Pressure 71/33 - Labs CBC & Chem 7: 01/24/21 03:55 01/24/21 03:55 Labs: Abnormal Lab Results - Last 24 Hours (Table) 01/24/21 01/24/21 01/24/21 Range/Units 03:55 03:55 05:40 WBC 17.2 H (3.8-10.6) k/uL RBC 4.03 L (4.30-5.90) m/uL Hgb 12.3 L (13.0-17.5) gm/dL Hct 36.8 L (39.0-53.0) % Neutrophils # 15.2 H (1.3-7.7) k/uL Lymphocytes # 0.8 L (1.0-4.8) k/uL ABG pCO2 50 H (35-45) mmHg ABG pO2 72 L (83-108) mmHg ABG HCO3 29 H (21-25) mmol/L ABG Total CO2 30 H (19-24) mmol/L Sodium 130 L (137-145) mmol/L BUN 21 H (9-20) mg/dL Glucose 123 H (74-99) mg/dL POC Glucose (mg/dL) (75-99) mg/dL Calcium 8.3 L (8.4-10.2) mg/dL Total Bilirubin 2.0 H (0.2-1.3) mg/dL ALT 248 H (4-49) U/L Alkaline Phosphatase 132 H (38-126) U/L Total Protein 5.8 L (6.3-8.2) g/dL Albumin 2.9 L (3.5-5.0) g/dL 01/24/21 Range/Units 12:57 WBC (3.8-10.6) k/uL RBC (4.30-5.90) m/uL Hgb (13.0-17.5) gm/dL Hct (39.0-53.0) % Neutrophils # (1.3-7.7) k/uL Lymphocytes # (1.0-4.8) k/uL ABG pCO2 (35-45) mmHg ABG pO2 (83-108) mmHg ABG HCO3 (21-25) mmol/L ABG Total CO2 (19-24) mmol/L Sodium (137-145) mmol/L BUN (9-20) mg/dL Glucose (74-99) mg/dL POC Glucose (mg/dL) 153 H (75-99) mg/dL Calcium (8.4-10.2) mg/dL Total Bilirubin (0.2-1.3) mg/dL ALT (4-49) U/L Alkaline Phosphatase (38-126) U/L Total Protein (6.3-8.2) g/dL Albumin (3.5-5.0) g/dL Microbiology - Last 24 Hours (Table) 01/21/21 20:18 Gram Stain - Final Sputum Sputum Culture - Final Corynebacterium species
[2021-01-24] MEDS: SODIUM CHLORIDE 0.9% 1,000 ML IV SCH (15:52)
[2021-01-24] MEDS: ACETAMINOPHEN TAB 325 MG TAB PO PRN (15:52)
[2021-01-24] MEDS: HYDROmorphone 1 MG/ML 1 ML SYRINGE IVP PRN (17:01)
--- NOTE | 2021-01-24 18:00 | XR ---
EXAMINATION: XR chest 1V portable DATE AND TIME: 01/24/2021 5:50 PM CLINICAL INDICATION: PHH; SOB TECHNIQUE: AP portable semiupright COMPARISON: 01/24/2021 5:17 AM FINDINGS: Tracheostomy tube tip at the level of the head of the clavicles, unchanged. Left subclavian central line tip superimposed over the cavoatrial junction, unchanged. EKG leads. A markedly abnormal air space filling processes throughout the right and left lung parenchyma are red emonstrated, overall similar in appearance when compared to the prior study obtained approximately 12 hours ago. No new pulmonary findings. No evidence of pneumothorax or other abnormal gas collection. IMPRESSION: Overall similar lung inflation pattern when compared the prior study.
[2021-01-24 18:33] LABS: Glucose,Whole Blood 134 mg/dL (75-99)
[2021-01-24] MEDS ORDERED: QUEtiapine 50 MG TAB PO SCH (21:00)
[2021-01-24] MEDS ORDERED: SODIUM CHLORIDE 0.9% 2,000 ML IV ONE (21:49)
[2021-01-24] MEDS: NOREPINEPHRINE 4 MG in SODIUM CHLORIDE 0.9% 250 ML IV SCH (22:42)
--- NOTE | 2021-01-24 22:50 | XR ---
EXAMINATION TYPE: XR chest 1V portable DATE OF EXAM: 01/24/2021 COMPARISON: Today HISTORY: Respiratory failure TECHNIQUE: Single view FINDINGS: There is tracheostomy tube. There is a moderate interstitial and airspace edema. Heart size is fairly normal. There is left subclavian catheter with tip in the right atrium. No pneumothorax. T here are chest leads. IMPRESSION: There is bilateral pulmonary airspace edema which is the same or slightly worse than exam 5 hours ago.
[2021-01-24 22:53] LABS: HCT 33.7 % (39.0-53.0); HGB 11.3 gm/dL (13.0-17.5); MCH 31.2 pg (25.0-35.0); MCHC 33.6 g/dL (31.0-37.0); MCV 92.8 fL (80.0-100.0); Mean Platelet Volume 8.4; Platelet Count 266 k/uL (150-450); RBC 3.63 m/uL (4.30-5.90); RDW 12.8 % (11.5-15.5); WBC 7.6 k/uL (3.8-10.6)
[2021-01-24 23:12] LABS: ALT 170 U/L (4-49); AST 58 U/L (17-59); African American GFR (CKD) >90 (>60 ml/min/1.73 sqM); Albumin 2.5 g/dL (3.5-5.0); Alkaline Phosphatase 122 U/L (38-126); Anion Gap 5 mmol/L; Blood Urea Nitrogen 23 mg/dL (9-20); Carbon Dioxide 25 mmol/L (22-30); Chloride 102 mmol/L (98-107); Glucose 113 mg/dL (74-99); Non-African American GFR(CKD) 82 (>60 ml/min/1.73 sqM); Potassium 4.6 mmol/L (3.5-5.1); Sodium 132 mmol/L (137-145); Total Bilirubin 2.9 mg/dL (0.2-1.3); Total Protein 5.2 g/dL (6.3-8.2)
[2021-01-24 23:33] LABS: Glucose,Whole Blood 97 mg/dL (75-99)
[2021-01-25] MEDS: LINEZOLID 600 MG in DEXTROSE/WATER 1 300ML.BAG IVPB SCH ×3 (00:08→23:29)
[2021-01-25] MEDS: INSULIN ASPART (NovoLOG) 100 UNIT/ML VIAL SQ SCH ×4 (00:09→18:31)
[2021-01-25] MEDS: ARTIFICIAL TEARS-HYPROMELLOSE DROPS 15 ML BTL BOTH EYES SCH ×6 (00:09→20:48)
[2021-01-25] MEDS: ACETAMINOPHEN TAB 325 MG TAB PO PRN (00:10)
[2021-01-25] MEDS: HYDROmorphone 1 MG/ML 1 ML SYRINGE IVP PRN ×3 (01:27→11:56)
[2021-01-25] MEDS: CEFEPIME 2 GM in SODIUM CHLORIDE 0.9% 100 ML IVPB SCH ×3 (02:04→15:20)
[2021-01-25] MEDS: DEXMEDETOMIDINE/0.9% NACL(PMX) 400 MCG in EMPTY BAG 1 BAG IV SCH ×2 (04:45→15:08)
[2021-01-25 05:19] LABS: Basophils % (A) 0 %; Eosinophils # (A) 0.1 k/uL (0-0.7); Eosinophils % (A) 1 %; HCT 33.3 % (39.0-53.0); Lymphocytes # (A) 0.4 k/uL (1.0-4.8); Lymphocytes % (A) 5 %; MCH 30.6 pg (25.0-35.0); MCHC 33.1 g/dL (31.0-37.0); MCV 92.3 fL (80.0-100.0); Mean Platelet Volume 7.9; Monocytes # (A) 0.3 k/uL (0-1.0); Monocytes % (A) 3 %; Neutrophils # (A) 7.5 k/uL (1.3-7.7); Neutrophils % (A) 89 %; Platelet Count 280 k/uL (150-450); RBC 3.61 m/uL (4.30-5.90); RDW 12.9 % (11.5-15.5); WBC 8.3 k/uL (3.8-10.6)
[2021-01-25 05:41] LABS: ALT 171 U/L (4-49); AST 64 U/L (17-59); African American GFR (CKD) >90 (>60 ml/min/1.73 sqM); Albumin 2.5 g/dL (3.5-5.0); Alkaline Phosphatase 127 U/L (38-126); Anion Gap 6 mmol/L; Blood Urea Nitrogen 17 mg/dL (9-20); Calcium 7.9 mg/dL (8.4-10.2); Carbon Dioxide 22 mmol/L (22-30); Chloride 108 mmol/L (98-107); Glucose 139 mg/dL (74-99); LDH 1187 U/L (313-618); Non-African American GFR(CKD) >90 (>60 ml/min/1.73 sqM); Potassium 4.8 mmol/L (3.5-5.1); Sodium 136 mmol/L (137-145); Total Bilirubin 2.7 mg/dL (0.2-1.3); Total Protein 5.1 g/dL (6.3-8.2)
[2021-01-25 05:58] LABS: ABG Base Excess -0.8 mmol/L; ABG HCO3 25 mmol/L (21-25); ABG Oxygen Saturation 91.8 % (94-97); ABG PCO2 47 mmHg (35-45); ABG PH 7.34 (7.35-7.45); ABG PO2 64 mmHg (83-108); ABG TCO2 27 mmol/L (19-24); Allen Test Performed? Yes
[2021-01-25 06:13] LABS: C Reactive Protein 32.6 mg/dL (<1.0)
[2021-01-25 06:18] LABS: Glucose,Whole Blood 133 mg/dL (75-99)
--- NOTE | 2021-01-25 07:50 | P.PN ---
Subjective Progress Note Date: 01/25/21 This is a 55-year-old male patient who is being seen in the intensive care unit for respiratory failure secondary to COVID-19 related pneumonia. The patient became symptomatic on 01/11/2021 and the patient's condition progressively got worse. The patient is a nonvaccinated individual. The patient is known to have previous history of pulmonary emboli with a left lower extremity DVT and he is also known to have various other comorbidities including osteoarthritis, cervical neck fusion, previous right shoulder surgery related to arthritis. The patient had a CT angiogram at time of admission that showed bilateral multifocal confluent groundglass pulmonary opacities right more than left in the lower lungs and it was suboptimal for pulmonary embolism. He was started on Decadron. He was supported by BiPAP for respiratory support during the course of his illness as the patient became progressively more hypoxic and his oxygen requirements progressively got worse. Ultimately, the patient was intubated and placed on mechanical ventilator. At this point in time, the patient is sedated with propofol and paralyzed with Nimbex. Propofol is running at 50 mcg/kg per minute and Nimbex @ mcg kilogram per minute. The patient is quite secretions of the mechanical ventilator. At this point in time is an assist-control mode at the rate of 30, tidal volume of 450, FiO2 of 50% with a PEEP of 15. The patient continues to show diffuse bilateral pulmonary infiltrates. Chest x-ray was noted. Blood gases was noted and the patient's pH currently is at 7.49 with a pCO2 of 42 and pO2 of 62. His chest x-ray showed bilateral pulmonary infiltrates system was COVID 19 related pneumonia. Note of any pneumothorax. ET tube is sitting at least 3 cm above the charity.. The patient was kept on Decadron and he was also started on Baricitinib per protocol. The d-dimer during the course of the hospitalization was as high as 12 in the based on that the patient was placed on IV heparin on an empiric basis. The inflammatory markers were elevated and LDH was as high as 2929 and the levels have been gradually improving. The CRP level remains elevated at 8.7 the patient has normal renal function the chest x-ray from today shows bilateral pulmonary infiltrates, ET tube is at least 3 cm above the charity and the patient also has a left subclavian triple-lumen catheter in place. In terms of inflammatory markers, his LDH level is down to 999, the patient continues to have mild transaminitis, CRP is at 13.5. White cell count is 7.4. Her net fluid balance over the past several days has been -2.1 and later on 2.3 L as such the patient has been in a negative fluid balance and he has lost at least 6 kg On today's evaluation of 01/22/2021, patient is being seen for a follow-up. The patient is post COVID 19 related pneumonia with respiratory failure and the patient has been on mechanical ventilator, sedated and paralyzed. This morning, the patient is on propofol which is running at 50 mcg/kg per minute and Nimbex is running at 3 mcg/kg per minute. Patient is also on fentanyl at 1 mcg/kg/h. He is quite synchronous with the mechanical ventilator. On today's evaluation, the patient is an assist-control mode with a tidal volume of 400 FiO2 of 40%, PEEP of 13 and the patient has a respiratory rate of 30. The blood gases from today showed a pH of 7.42 with a pCO2 of 50 and pO2 of 65. The peak airway pressure on the mechanical ventilator is 21 which is considerably lower compared to yesterday. The chest x-ray from today is showing diffuse bilateral pulmonary infiltrates consistent with COVID 19 related pneumonia. ET tube is in a good location. No major interval change compared to yesterday. Meanwhile, the patient is still on a combination of Decadron and Baricitinib per protocol. Inflammatory markers have been gradually improving. The patient is LDH level is down to 954 and his CRP level is down to 6.8. The patient is a white cell count of 9.1 with a hemoglobin of 11.6. The patient's has some mild transaminitis which remains unchanged and the LFTs remain slightly elevated. Triglyceride level was 173 from yesterday. No fever. Most recent d-dimer is at 1.23. He is receiving enteral feeding for nutritional support in the form of white cell 1.2 at the rate of 26 mL an hour. He continues to make excellent urine output patient remains in a negative fluid balance of 2.2 L since yesterday. 01/23/2021, patient is being seen for a follow-up. The patient remains intubated on a mechanical ventilator. The patient remains sedated and paralyzed. The patient is a case of COVID 19 related pneumonia with respiratory failure. He has been on a mechanical ventilator since 01/14/2021. This morning, the patient is on propofol running at 75 mcg/kg per minute and the patient is also on fentanyl at 2 mcg/kg/h and the patient is also Nimbex running at 3 mcg/kg per minute. The patient is quite suggestive mechanical ventilator as of yesterday. The patient remains on a mechanical ventilator on assist control mode with a tidal volume of 400 and FiO2 of 40% and a PEEP of 12 which was gradually reduced and a respiratory rate of 30. The blood gases from today shows a pH of 7.45 with a pCO2 of 44 and pO2 of 72. The chest x-ray findings are essentially stable without any interval change compared to yesterday. ET tube remains in a good location. The patient remains on a combination of Decadron and Baricitinib per protocol. Aspergillus was cultured in the sputum which is probably a colonizer. We are repeating the sputum sample for now. The patient is afebrile. No significant leukocytosis the white cell count at 8.3. The rest of the labs are all stable. Normal renal function. He does have abnormalities in his liver function tests and there is some limited rise in the AST and ALP compared to yesterday and the levels being at around 28 and 153 respectively. The LDH level from yesterday was down to 954. The most recent d- dimer was at 1.23. The patient is on Lovenox for DVT prophylaxis. IV heparin was been discontinued. The peak airway pressures 25. The static pressure is 22 on today's evaluation. 01/24/2021, THE PATIENT IS BEING SEEN FOR A FOLLOW-UP IN THE INTENSIVE CARE UNIT. NOTE THAT THE PATIENT HAS BEEN ON A MECHANICAL VENTILATOR FOR 10 DAYS AT LEAST. THE PATIENT WAS PLACED ON A MECHANICAL VENTILATOR ON 01/14/2021. He was sedated and paralyzed. Based on all this, I made recommendations to proceed with a PEG and trach and the family was agreeable. As such the procedures were done yesterday without any major difficulties. The patient is currently off Nimbex. He remains sedated patient is currently on propofol which is running at 55 mcg/kg per minute. This morning, the patient was taken off the paralytics. He open up his eyes. He is not following any commands.. Nevertheless, he is doing sports as eye-opening and his looking around and trying to do some motor activity while laying down in bed. He remains on a mechanical ventilator. For now, the patient has a #[address] In terms of his vent management, the patient remains on assist control mode at the rate of 30 with a tidal volume of 400 and FiO2 of 50% with a PEEP of 10. No significant orotracheal secretions. Nevertheless, the chest x-ray from today has shown some worsening in the bilateral pulmonary infiltrates more so in the lower lobes. Another concerning thing is that the patient has spiked a temperature and the T- max was 102 and the patient also has developed an acute leukocytosis with a white cell count of 17. Note that he was on a combination of Decadron and Baricitinib. The patient is also has cultures Aspergillus fumigatus in the sputum and the most recent sputum culture was positive for corynebacterium species. As such, infection is obviously a concern in this patient. Hemodynamically stable. Blood work from today shows a white cell count 17, hemoglobin is at 12.3 with a platelet count of 329. Blood gases from today showed a pH of 7.37 with a pCO2 of 50 and pO2 of 72. Sodium is at 1:30, BUN is at 21 with a creatinine of 0.8. LFTs are slightly abnormal with a ALT of 132, AST of 248 and these are essentially lower compared to yesterday's values. The LDH level is down to 954 from few days back. On today's chest x-ray, the tracheostomy tube is in a good location. Fluid balance over the past 24 hours has been in the order of -500 mL. He has been essentially developing a negative fluid balance as the patient is producing adequate amount of urine output over the past several days and this is without diuresis All 3 2020, the patient is being seen for a follow-up. 55-year-old male patient, post COVID 19 related pneumonia with respiratory failure, post PEG and tracheostomy tube insertion. The patient was doing some good progress yesterday. We managed to discontinue the paralytics. We managed also to wean off the sedation and he got to the point where he was fully alert and awake and was following commands. Nevertheless, as the day went on yesterday, the patient became progressively more asynchronous a mechanical ventilator, agitated, tachypneic, hypotensive. Repeat blood work was done. Repeat chest x-ray was done. Repeat blood gases was done. He was becoming obvious that the patient was developing a right lung pneumonia and the patient had worsening consolidation of the right lung and the patient was developing worsening bilateral pulmonary infiltrates. At that point, his antibiotic for further broaden. I had him currently on a combination of cefepime, Zyvox, and voriconazole. Note that his earlier sputum samples have cultures Aspergillus an d Rhino bacteria. He is fever broke and he is currently afebrile. In terms of his blood work, the patient's white cell count currently is at 8.3. He is off the Baricitinib. Pro-calcitonin level is pending for now. Meanwhile, the patient received a total of 2 L of IV fluids. He was started on pressors and norepinephrine infusion is currently running at 0.05 mcg/kg per minute. He is also sedated on propofol which is currently running at 75 g kilogram per minute and the patient is also on Precedex at 0.3 mcg/kg per minute. He is quite 6 is a mechanical ventilator at this point in time. He was started on enteral feeding for nutritional support through his PEG tube. In terms of his blood work, his LDH level is 1108 7 and his CRP level is 32. LFTs are being monitored and the patient is currently on voriconazole. LFTs remains stable with a ALT of 171, AST of 64 patient was started on enteral feeding for nutritional support. He is currently receiving vitamin A at the rate of 20 this is an hour. Urine output is adequate. As mentioned, he is afebrile. He is having respiratory secretions and going we are going to reculture the sputum sample. The patient is also on Decadron. Blood culture and urine culture were sent yesterday. He jumped up to 9.04 and the patient remains on Lovenox for DVT prophylaxis. She remains on a mechanical ventilator. This morning, he is an assist-control at the rate of 22 with a tidal volume of 400 and FiO2 of 40% with a PEEP of 12. The blood gases from today shows a pH of 7.34 with a pCO2 of 47 and pO2 of 64. Current pulse ox is around 96%. Objective - Vital Signs Vital signs: Vital Signs Temp 99.7 F H 01/25/21 04:00 Pulse 73 01/25/21 07:00 Resp 27 H 01/25/21 07:00 BP 95/59 01/25/21 07:00 Pulse Ox 95 01/25/21 07:00 Intake & Output 01/24/21 01/25/21 01/25/21 18:59 06:59 18:59 Intake Total 2607.480 2199.149 45 Output Total 640 2220 40 Balance 9341.229 4234.149 5 Weight 102.7 kg 104.7 kg Intake: IV 309 276 23 Pressure Bags 69 36 3 Sodium Chloride 0.9% 1, 240 240 20 000 ml @ 20 mls/hr IV . Q24H [facility] Rx#:[id number] Intake, IV Titration 8481.590 7587.149 Amount Cisatracurium 200 mg In 196.9 Sodium Chloride 0.9% 180 ml @ 1 MCG/KG/MIN 6.6 mls /hr IV .Q24H [facility] Rx#: [id number] Dexmedetomidine/0.9% NaCl 69.066 84.900 (Pmx) 400 mcg In Empty Bag 1 bag @ 0.2 MCG/KG/HR 5.135 mls/hr IV .[id number] [facility] Rx#:[id number] Linezolid 600 mg In 300 Dextrose/Water 1 300ml. bag @ 150 mls/hr IVPB Q12H [facility] Rx#:[id number] Norepinephrine 4 mg In 142.360 Sodium Chloride 0.9% 250 ml @ 0.05 MCG/KG/MIN 19. 564 mls/hr IV .[id number] [facility] Rx#:[id number] Sodium Chloride 0.9% 1, 1000 2000 000 ml @ 999 mls/hr IV . Q1H1M ONE Rx#:[id number] Voriconazole 200 mg In 100 Sodium Chloride 0.9% 100 ml @ 125 mls/hr IVPB Q12HR [facility] Rx#:[id number] fentaNYL (PF). 1,000 mcg 69.611 In Sodium Chloride 0.9% 80 ml @ 0.5 MCG/KG/HR 5. 285 mls/hr IV .[id number] [facility] Rx#:[id number] propofoL 1,000 mg In 286.063 363.889 Empty Bag 1 bag @ Titrate IV .Q0M [facility] Rx#: [id number] Tube Feeding 30 192 22 Other 180 Output: Urine 640 2220 40 Other: Voiding Method Indwelling Catheter Indwelling Catheter ABP, PAP, CO, CI - Last Documented Arterial Blood Pressure 71/33 - Exam Gen. appearance -No acute distress, sedated and not paralyzed , and the patient has a tracheostomy tube and #[address] in [address]. He seems to be opening his eyes spontaneously and moving. Is currently off paralytics. He still sedated. She remains off paralytics for now. HEENT examination is grossly unremarkable. Neck supple. Full range of motion. No adenopathy thyromegaly or neck vein distention. Cardiac exam revealed the PMI to be normally situated and sized. The rhythm was regular and no extrasystoles were noted during several minutes of auscultation. The first and second heart sounds were normal and physiologic splitting of the second heart sound was noted. There were no murmurs, rubs, clicks, or gallops. Lungs reveal diffuse bilateral coarse rhonchi. Diffuse bilateral crackles. Breath sounds equal bilaterally. Breath sounds are unchanged. Abdominal exam revealed normal bowel sounds. The abdomen was soft, non-tender, and without masses, organomegaly, or appreciable enlargement of the abdominal aorta. The PEG tube is in a good location and there is no abdominal distention. No bleeding around the PEG tube site. Extremities are intact. No cyanosis clubbing or edema. Examination of the skin revealed no evidence of significant rashes, suspicious appearing nevi or other concerning lesions.. Neurologic examination , was done one the patient was off sedation patient was fully awake and he got to the point where he was watching television and he was following simple commands. Nevertheless, he had generalized motor weakness in all 4 extremities due to prolonged mechanical ventilation and sedation paralysis. - Labs CBC & Chem 7: 01/25/21 04:42 01/25/21 04:42 Labs: Abnormal Lab Results - Last 24 Hours (Table) 01/24/21 01/24/21 01/24/21 Range/Units 10:22 12:57 18:31 RBC (4.30-5.90) m/uL Hgb (13.0-17.5) gm/dL Hct (39.0-53.0) % Lymphocytes # (1.0-4.8) k/uL D-Dimer (<0.60) mg/L FEU ABG pH (7.35-7.45) ABG pCO2 (35-45) mmHg ABG pO2 (83-108) mmHg ABG Total CO2 (19-24) mmol/L ABG O2 Saturation (94-97) % Sodium (137-145) mmol/L Chloride (98-107) mmol/L BUN (9-20) mg/dL Glucose (74-99) mg/dL POC Glucose (mg/dL) 153 H 134 H (75-99) mg/dL Calcium (8.4-10.2) mg/dL Total Bilirubin (0.2-1.3) mg/dL AST (17-59) U/L ALT (4-49) U/L Alkaline Phosphatase (38-126) U/L Lactate Dehydrogenase (313-618) U/L C-Reactive Protein (<1.0) mg/dL Total Protein (6.3-8.2) g/dL Albumin (3.5-5.0) g/dL Procalcitonin 0.97 H (0.02-0.09) ng/mL 01/24/21 01/24/21 01/25/21 Range/Units 22:24 22:24 04:42 RBC 3.63 L 3.61 L (4.30-5.90) m/uL Hgb 11.3 L 11.0 L (13.0-17.5) gm/dL Hct 33.7 L 33.3 L (39.0-53.0) % Lymphocytes # 0.4 L (1.0-4.8) k/uL D-Dimer (<0.60) mg/L FEU ABG pH (7.35-7.45) ABG pCO2 (35-45) mmHg ABG pO2 (83-108) mmHg ABG Total CO2 (19-24) mmol/L ABG O2 Saturation (94-97) % Sodium 132 L (137-145) mmol/L Chloride (98-107) mmol/L BUN 23 H (9-20) mg/dL Glucose 113 H (74-99) mg/dL POC Glucose (mg/dL) (75-99) mg/dL Calcium 8.0 L (8.4-10.2) mg/dL Total Bilirubin 2.9 H (0.2-1.3) mg/dL AST (17-59) U/L ALT 170 H (4-49) U/L Alkaline Phosphatase (38-126) U/L Lactate Dehydrogenase (313-618) U/L C-Reactive Protein (<1.0) mg/dL Total Protein 5.2 L (6.3-8.2) g/dL Albumin 2.5 L (3.5-5.0) g/dL Procalcitonin (0.02-0.09) ng/mL 01/25/21 01/25/21 01/25/21 Range/Units 04:42 04:42 05:55 RBC (4.30-5.90) m/uL Hgb (13.0-17.5) gm/dL Hct (39.0-53.0) % Lymphocytes # (1.0-4.8) k/uL D-Dimer 9.04 H (<0.60) mg/L FEU ABG pH 7.34 L (7.35-7.45) ABG pCO2 47 H (35-45) mmHg ABG pO2 64 L (83-108) mmHg ABG Total CO2 27 H (19-24) mmol/L ABG O2 Saturation 91.8 L (94-97) % Sodium 136 L (137-145) mmol/L Chloride 108 H (98-107) mmol/L BUN (9-20) mg/dL Glucose 139 H (74-99) mg/dL POC Glucose (mg/dL) (75-99) mg/dL Calcium 7.9 L (8.4-10.2) mg/dL Total Bilirubin 2.7 H (0.2-1.3) mg/dL AST 64 H (17-59) U/L ALT 171 H (4-49) U/L Alkaline Phosphatase 127 H (38-126) U/L Lactate Dehydrogenase 1187 H (313-618) U/L C-Reactive Protein 32.6 H (<1.0) mg/dL Total Protein 5.1 L (6.3-8.2) g/dL Albumin 2.5 L (3.5-5.0) g/dL Procalcitonin (0.02-0.09) ng/mL 01/25/21 Range/Units 06:06 RBC (4.30-5.90) m/uL Hgb (13.0-17.5) gm/dL Hct (39.0-53.0) % Lymphocytes # (1.0-4.8) k/uL D-Dimer (<0.60) mg/L FEU ABG pH (7.35-7.45) ABG pCO2 (35-45) mmHg ABG pO2 (83-108) mmHg ABG Total CO2 (19-24) mmol/L ABG O2 Saturation (94-97) % Sodium (137-145) mmol/L Chloride (98-107) mmol/L BUN (9-20) mg/dL Glucose (74-99) mg/dL POC Glucose (mg/dL) 133 H (75-99) mg/dL Calcium (8.4-10.2) mg/dL Total Bilirubin (0.2-1.3) mg/dL AST (17-59) U/L ALT (4-49) U/L Alkaline Phosphatase (38-126) U/L Lactate Dehydrogenase (313-618) U/L C-Reactive Protein (<1.0) mg/dL Total Protein (6.3-8.2) g/dL Albumin (3.5-5.0) g/dL Procalcitonin (0.02-0.09) ng/mL Microbiology - Last 24 Hours (Table) 01/24/21 09:55 Urine Culture - Preliminary Urine,Catheterized 01/21/21 20:18 Gram Stain - Final Sputum Sputum Culture - Final Corynebacterium species Assessment and Plan Plan: 1 Acute hypoxemic respiratory failure secondary to coronavirus associated pneumonia, with intubation and mechanical ventilation, initiated on January 14, for worsening hypoxemia. Noted the patient was initially on nasal cannula oxygen supplementation and following that the patient required BiPAP and ultimately the patient to be intubated on 01/14/2021 for respiratory failure secondary to COVID-19 related to pneumonia. Patient is currently on a combination of Decadron and Baricitinib per protocol. The patient is post tracheostomy tube insertion and suggested was inserted on 01/23/2021. Meanwhile the patient has developed superinfection. This could be potentially hospital- acquired with a ventilator associated pneumonia. The patient has grown Aspergillus and Corynebacterium and his sputum. The patient became septic accordingly. The patient became hypotensive. The patient also developed worse nas in his oxygenation. Currently is on a PEEP of salt with an FiO2 of 100%. Chest x-ray shows worsening consolidation of the right lung. The patient is currently covered with a combination of antibiotics and he is on a cefepime, Zyvox and voriconazole combination. Repeat cultures will be done 2 Acute respiratory distress syndrome (ARDS), secondary to coronavirus associated pneumonia. 3 Previous history of bilateral pulmonary emboli, and left leg DVT, 2016, currently on Lovenox. 4 History of osteoarthritis. 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 Acute sepsis with hypotension probably related to respiratory infection/pneumonia, consider a ventilator associated pneumonia. The patient is currently off Baricitinib and the patient on broad-spectrum antibiotics as mentioned the patient is on low-dose norepinephrine infusion. The patient was given a total of 2 L of IV fluids. 8 fever Plan: Continue ventilator support. The patient is a tracheostomy tube in place for now. I'm going to switch him to ABC plus mode and keep the tidal volume of 400, dropped a respiratory rate down to 22, inspiratory time is at 0.8 seconds and keep the FiO2 of 100% with a PEEP of 12. We'll monitor the blood gases. Tracheostomy tube is in a good location. Chest x-ray showing some interval worsening Continue pressors and wean it off gradually to maintain a mean arterial pressure above Continue cefepime, Zyvox and voriconazole as broad-spectrum antibiotic coverage for now. Repeat sputum sample and cultures. Blood cultures were also sent.. The patient remains on Decadron. Baricitinib has been discontinued. Check pro calcitonin level Start the patient on voriconazole and monitor LFTs Start the patient on IV cefepime Monitor fever pattern Monitor white count Stop the Baricitinib and continue the Decadron for now Enteral feeding will be started 24 hours after insertion of the PEG Lovenox 40 mg SC prophylaxis We'll continue to follow make further recommendations based on his progress. Condition remains critical. The has been updated on his condition. I had a lengthy discussion with her. This evaluation was done and more than 30 minutes. Time with Patient: Greater than 30
[2021-01-25] MEDS: DEXAMETHASONE SOD PHOSPHATE 10 MG/ML 1 ML VIAL IVP SCH (08:01)
[2021-01-25] MEDS: PANTOPRAZOLE 40 MG/10 ML VIAL IVP SCH (08:01)
[2021-01-25] MEDS: CHOLECALCIFEROL 25 MCG (1000 IU) TABLET PO SCH (08:03)
[2021-01-25] MEDS: ENOXAPARIN 40 MG/0.4 ML SYRINGE SQ SCH (08:03)
[2021-01-25] MEDS: ASCORBIC ACID 500 MG TAB PO SCH (08:03)
[2021-01-25] MEDS: CHLORHEXIDINE GLUCONATE 15 ML CUP MUCOUS MEM SCH ×2 (08:03→20:48)
[2021-01-25] MEDS: ZINC SULFATE 220 MG CAP PO SCH (08:03)
[2021-01-25] MEDS: LACTULOSE 20 GM/30 ML CUP PO SCH (08:44)
--- NOTE | 2021-01-25 09:13 | XR ---
EXAMINATION TYPE: XR chest 1V portable DATE OF EXAM: 01/25/2021 COMPARISON: 01/24/2021 HISTORY: Shortness of breath TECHNIQUE: Single frontal view of the chest is obtained. FINDINGS: Tracheostomy tube with the tip at the proximal thoracic level. Postsurgical change cervica l spine. NG tube is been removed. Central line stable. Diffuse bilateral infiltrate and small effusio n stable. Heart enlarged. No pneumothorax. IMPRESSION: Diffuse bilateral infiltrate stable.
[2021-01-25] MEDS: VORICONAZOLE 200 MG in SODIUM CHLORIDE 0.9% 100 ML IVPB SCH ×2 (09:22→20:48)
--- NOTE | 2021-01-25 10:16 | P.PCN ---
Date of Procedure: 01/25/21 Operative Findings: Preoperative Diagnosis: COVID pneumonia Postoperative Diagnosis: COVID pneumonia Procedure(s) Performed: Arterial Line: Anesthesia: local Surgeon: Alexandrea Green Plumber Pipe Fitting #1: Yuridia Donis Estimated Blood Loss (ml): 0 Condition: critical Disposition: ICU Description of Procedure: Arterial Line: Indication: Hemodynamic monitoring. A time-out was completed verifying correct patient, procedure, site, positioning, and implant(s) or special equipment if applicable. Allens test was performed to ensure adequate perfusion. The patients left wrist was prepped and draped in sterile fashion. 1% Lidocaine was used to anesthetize the area. An 18G Arrow arterial line was introduced into the radial artery. The catheter was threaded over the guide wire and the needle was removed with appropriate pulsatile blood return. Blood loss was minimal. The catheter was then sutured in place to the skin and a sterile dressing applied. Perfusion to the extremity distal to the point of catheter insertion was checked and found to be adequate. The patient tolerated the procedure well and there were no complications.
[2021-01-25 11:27] LABS: Glucose,Whole Blood 167 mg/dL (75-99)
[2021-01-25 11:54] LABS: Glucose,Whole Blood 173 mg/dL (75-99)
[2021-01-25] MEDS: CISATRACURIUM 200 MG in SODIUM CHLORIDE 0.9% 180 ML IV SCH (12:37)
--- NOTE | 2021-01-25 13:47 | XR ---
EXAMINATION TYPE: XR chest 1V portable DATE OF EXAM: 01/25/2021 CLINICAL HISTORY: Difficulty breathing and hypoxia. TECHNIQUE: Single AP portable semiupright view of the chest is obtained. COMPARISON: Chest x-ray from earlier today and older studies FINDINGS: Stable left internal jugular central venous catheter. Stable tracheostomy tube. Persistent confluent opacities in the mid to lower lungs. Cardiac silhouette size stable and mildly e nlarged. Surgical change cervical spine is partially imaged. IMPRESSION: Cardiomegaly with bilateral confluent mid to lower lung opacities consistent with covid-1 9 infection redemonstrated. No significant change from x-ray earlier today.
--- NOTE | 2021-01-25 14:07 | P.PN ---
Subjective Progress Note Date: 01/25/21 CHIEF COMPLAINT: COVID-19 pneumonia HISTORY OF PRESENT ILLNESS: Patient in the ICU and required mechanical ventilation. Patient is having leaking from history trach site and losing volumes. Oxygen saturation has remained stable. Patient is going to be evaluated by critical care service. Surgeon has been notified. Patient is tolerating tube feeds. Low-grade temp 99.7 WBC 8.3 PHYSICAL EXAM: VITAL SIGNS: Reviewed. GENERAL: Well-developed in no acute distress. HEENT: No sclera icterus. Extraocular movements grossly intact. Moist buccal mucosa. Head is atraumatic, normocephalic. Bleeding from tracheostomy site ABDOMEN: Soft. Nondistended. Nontender. PEG tube site with dried blood noted NEUROLOGIC: Alert and oriented. Cranial nerves II through XII grossly intact. ASSESSMENT: 1. Acute hypoxic respiratory failure secondary to COVID-19 pneumonia status post tracheostomy placement 2. Severe protein calorie malnutrition status post PEG tube placement PLAN: -Continue to monitor tracheostomy air leak -Continue ICU management -Continue supportive care Physician Paper Ruler note has been reviewed by physician. Signing provider agrees with the documented findings, assessment, and plan of care. Objective - Vital Signs Vital signs: Vital Signs Temp 99.7 F H 01/25/21 12:00 Pulse 87 01/25/21 12:00 Resp 33 H 01/25/21 12:00 BP 109/63 01/25/21 11:00 Pulse Ox 95 01/25/21 12:00 Intake & Output 01/24/21 01/25/21 01/25/21 18:59 06:59 18:59 Intake Total 9970.984 7152.149 539.129 Output Total 640 2220 315 Balance 6644.573 3372.149 224.129 Weight 102.7 kg 104.7 kg 104.7 kg Intake: IV 309 276 138 Pressure Bags 69 36 18 Sodium Chloride 0.9% 1, 240 240 120 000 ml @ 20 mls/hr IV . Q24H [facility] Rx#:[id number] Intake, IV Titration 5279.811 3091.149 157.129 Amount Cisatracurium 200 mg In 196.9 0 Sodium Chloride 0.9% 180 ml @ 1 MCG/KG/MIN 6.6 mls /hr IV .Q24H [facility] Rx#: [id number] Dexmedetomidine/0.9% NaCl 69.066 84.900 46.346 (Pmx) 400 mcg In Empty Bag 1 bag @ 0.2 MCG/KG/HR 5.135 mls/hr IV .[id number] [facility] Rx#:[id number] Linezolid 600 mg In 300 Dextrose/Water 1 300ml. bag @ 150 mls/hr IVPB Q12H [facility] Rx#:[id number] Norepinephrine 4 mg In 142.360 Sodium Chloride 0.9% 250 ml @ 0.05 MCG/KG/MIN 19. 564 mls/hr IV .[id number] [facility] Rx#:[id number] Sodium Chloride 0.9% 1, 1000 2000 000 ml @ 999 mls/hr IV . Q1H1M [facility] Rx#:[id number] Voriconazole 200 mg In 100 Sodium Chloride 0.9% 100 ml @ 125 mls/hr IVPB Q12HR [facility] Rx#:[id number] fentaNYL (PF). 1,000 mcg 69.611 In Sodium Chloride 0.9% 80 ml @ 0.5 MCG/KG/HR 5. 285 mls/hr IV .[id number] [facility] Rx#:[id number] propofoL 1,000 mg In 286.063 363.889 110.783 Empty Bag 1 bag @ Titrate IV .Q0M [facility] Rx#: [id number] Tube Feeding 30 192 124 Other 180 120 Output: Urine 640 2220 315 Other: Voiding Method Indwelling Catheter Indwelling Catheter ABP, PAP, CO, CI - Last Documented Arterial Blood Pressure 128/57 - Labs CBC & Chem 7: 01/25/21 04:42 01/25/21 04:42 Labs: Abnormal Lab Results - Last 24 Hours (Table) 01/24/21 01/24/21 01/24/21 Range/Units 10:22 18:31 22:24 RBC 3.63 L (4.30-5.90) m/uL Hgb 11.3 L (13.0-17.5) gm/dL Hct 33.7 L (39.0-53.0) % Lymphocytes # (1.0-4.8) k/uL D-Dimer (<0.60) mg/L FEU ABG pH (7.35-7.45) ABG pCO2 (35-45) mmHg ABG pO2 (83-108) mmHg ABG Total CO2 (19-24) mmol/L ABG O2 Saturation (94-97) % Sodium (137-145) mmol/L Chloride (98-107) mmol/L BUN (9-20) mg/dL Glucose (74-99) mg/dL POC Glucose (mg/dL) 134 H (75-99) mg/dL Calcium (8.4-10.2) mg/dL Total Bilirubin (0.2-1.3) mg/dL AST (17-59) U/L ALT (4-49) U/L Alkaline Phosphatase (38-126) U/L Lactate Dehydrogenase (313-618) U/L C-Reactive Protein (<1.0) mg/dL Total Protein (6.3-8.2) g/dL Albumin (3.5-5.0) g/dL Procalcitonin 0.97 H (0.02-0.09) ng/mL 01/24/21 01/25/21 01/25/21 Range/Units 22:24 04:42 04:42 RBC 3.61 L (4.30-5.90) m/uL Hgb 11.0 L (13.0-17.5) gm/dL Hct 33.3 L (39.0-53.0) % Lymphocytes # 0.4 L (1.0-4.8) k/uL D-Dimer 9.04 H (<0.60) mg/L FEU ABG pH (7.35-7.45) ABG pCO2 (35-45) mmHg ABG pO2 (83-108) mmHg ABG Total CO2 (19-24) mmol/L ABG O2 Saturation (94-97) % Sodium 132 L (137-145) mmol/L Chloride (98-107) mmol/L BUN 23 H (9-20) mg/dL Glucose 113 H (74-99) mg/dL POC Glucose (mg/dL) (75-99) mg/dL Calcium 8.0 L (8.4-10.2) mg/dL Total Bilirubin 2.9 H (0.2-1.3) mg/dL AST (17-59) U/L ALT 170 H (4-49) U/L Alkaline Phosphatase (38-126) U/L Lactate Dehydrogenase (313-618) U/L C-Reactive Protein (<1.0) mg/dL Total Protein 5.2 L (6.3-8.2) g/dL Albumin 2.5 L (3.5-5.0) g/dL Procalcitonin (0.02-0.09) ng/mL 01/25/21 01/25/21 01/25/21 Range/Units 04:42 05:55 06:06 RBC (4.30-5.90) m/uL Hgb (13.0-17.5) gm/dL Hct (39.0-53.0) % Lymphocytes # (1.0-4.8) k/uL D-Dimer (<0.60) mg/L FEU ABG pH 7.34 L (7.35-7.45) ABG pCO2 47 H (35-45) mmHg ABG pO2 64 L (83-108) mmHg ABG Total CO2 27 H (19-24) mmol/L ABG O2 Saturation 91.8 L (94-97) % Sodium 136 L (137-145) mmol/L Chloride 108 H (98-107) mmol/L BUN (9-20) mg/dL Glucose 139 H (74-99) mg/dL POC Glucose (mg/dL) 133 H (75-99) mg/dL Calcium 7.9 L (8.4-10.2) mg/dL Total Bilirubin 2.7 H (0.2-1.3) mg/dL AST 64 H (17-59) U/L ALT 171 H (4-49) U/L Alkaline Phosphatase 127 H (38-126) U/L Lactate Dehydrogenase 1187 H (313-618) U/L C-Reactive Protein 32.6 H (<1.0) mg/dL Total Protein 5.1 L (6.3-8.2) g/dL Albumin 2.5 L (3.5-5.0) g/dL Procalcitonin (0.02-0.09) ng/mL 01/25/21 01/25/21 Range/Units 11:24 11:52 RBC (4.30-5.90) m/uL Hgb (13.0-17.5) gm/dL Hct (39.0-53.0) % Lymphocytes # (1.0-4.8) k/uL D-Dimer (<0.60) mg/L FEU ABG pH (7.35-7.45) ABG pCO2 (35-45) mmHg ABG pO2 (83-108) mmHg ABG Total CO2 (19-24) mmol/L ABG O2 Saturation (94-97) % Sodium (137-145) mmol/L Chloride (98-107) mmol/L BUN (9-20) mg/dL Glucose (74-99) mg/dL POC Glucose (mg/dL) 167 H 173 H (75-99) mg/dL Calcium (8.4-10.2) mg/dL Total Bilirubin (0.2-1.3) mg/dL AST (17-59) U/L ALT (4-49) U/L Alkaline Phosphatase (38-126) U/L Lactate Dehydrogenase (313-618) U/L C-Reactive Protein (<1.0) mg/dL Total Protein (6.3-8.2) g/dL Albumin (3.5-5.0) g/dL Procalcitonin (0.02-0.09) ng/mL Microbiology - Last 24 Hours (Table) 01/24/21 10:22 Blood Culture - Preliminary Blood No Growth after 24 hours 01/24/21 09:55 Urine Culture - Preliminary Urine,Catheterized 01/21/21 20:18 Gram Stain - Final Sputum Sputum Culture - Final Corynebacterium species
--- NOTE | 2021-01-25 14:56 | P.PN ---
Subjective Progress Note Date: 01/25/21 HISTORY OF PRESENT ILLNESS This is a 55-year-old male patient of Dr. 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 Patient states he has not been feeling well since Thursday. He said shortness of breath cough is nonproductive along with fever and chills, exertional dyspnea. He denies having any nausea vomiting or diarrhea. He denies any close contacts to known Covid people. He states his temperature is been up to 102.7 at home. He is not vaccinated. Patient presented to [facility] emergency center and found to be febrile at 101.1, heart rate 90, blood pressure 122/80, pulse ox 85% on room air. CBC revealed platelet count of 128. D-dimer 0.82. Sodium 131 otherwise electrolytes and renal function were normal. Blood sugar 147. Troponin negative. Coronavirus PCR positive. Chest x-ray reveals patchy bilateral airspace disease especially in the mid and lower lungs. Correlate for multifocal pneumonia including Covid 19 pneumonia. CTA of the chest was suboptimal study without central acute pulmonary embolism. Bilateral multifocal and confluent groundglass opacities right greater than left and greater in the lower lungs consistent with known Covid 19 infection. Patient is seen today in the emergency center waiting for bed on the [facility] floor, started on Remdesivir, Lovenox, dexamethasone and vitamin supplements, consult with pulmonary medicine. 01/12: Patient is comfortable, however he requires 40 L of oxygen via airvo sats 88-89%, he feels better today compared to his nonrebreather mask yesterday, patient did not sleep well, patient does not have any cough, however he does have shortness of breath. Patient denies any aspiration, appetite is still marginal, patient has insomnia vitals, blood sugar currently is 243, creatinine of 0.98, d-dimer is 0.84, CRP is elevated, LDH is elevated, venous Doppler, shows chronic DVT, left popliteal, in the posterior tibial veins, without any obstruction of flow. No acute DVT identified CTA, shows suboptimal, without central acute pulmonary emboli, has bilateral multifocal and confluent groundglass opacities, right greater than left, lower lobe, consistent with COVID-19 infection and remdesivir discontinued by pulmonary today and is outside of the window for remdesivir 01/13: Patient is on aerosol 14 L, with nonrebreather mask, 15 L, hypoxemia n oted on 88%, worse with coughing, however his nonrebreather mask is very loose. Nurse is worriedwith the turn of events, and requested an ICU transfer, Dr. Canales has seen the patient, and is stable for floor management at this time, patient is not significant tachypnea, and is not tiring out. There is no hemoptysis, and mucus is productive, patient's doing incentive spirometry, up 2 L. 01/14: Patient remains in the intensive care unit, he was intubated this morning as he was desaturating with BiPAP. He has been afebrile, heart rate 73, blood pressure 93/47, pulse ox 90%. CBC is unremarkable. D-dimer 12.04. Sodium 135, creatinine 0.82. LDH 2929, C-reactive protein 5.2. Sputum culture is in progress. He has had good urine output. Chest x-ray reveals no evident convocation from catheters. Bilateral airspace disease. 01/15: Patient remains in the intensive care intubated and on mechanical ventilation with tidal volume 450, FiO2 80, PEEP of 15. Patient has been started on norepinephrine and remains on propofol, heparin drip, Nimbex. Repeat blood work revealed unremarkable CBC. Creatinine 0.88. Capillary blood glucose running between 195 and 215. AST 126, ALT 183, alkaline phosphatase 109. Sputum culture is in progress. Repeat chest x-ray reveals correlate for pneumonia versus edema, ARDS. Patient is continued on vitamin supplements, heparin drip, dexamethasone and Baricitinib. patient remains in intensive care intubated on mechanical ventilator at FiO2 60 percent PEEP respiratory rate of 30 tidal volume 450. Continues to maintain saturations between 94-95% on the current settings. Vitals otherwise stable labs reviewed today WBC is 9.5 hemoglobin 12.4 d-dimer is elevated at 4.98. ABG obtained today suggest pH of 7.4 pO2 53 bicarb 26 on 50% FiO2. Creatinine stable at 0.78 glucose is maintained between 145-190. LDH 1564 CRP is elevated at 4. Patient's inflammatory markers trending down. Patient's vent settings increased to 80% for inadequate oxygenation. Chest x-ray reviewed showed bilateral infiltrate consistent with coronavirus associated pneumonia. Patient continues intubated on propofol 70 bike but patient examined Nimbex 1.25 g daily per minute. Patient to receive 1 dose of Lasix today. Continue to remain on baricitinib day 2 PAtient remains intubaated since . patient continues too remain on assist control, TV 450 , peep 15 and fio2 of 60 %. patient was proned for 16 hours yesterday. CXR was reviewed, COVID pneumonia but no significant change was noted, Will repeat inflammatory markers tomorrow. Vent managment per medical staff credentialing coordinator. Patient contines to remain propofol , nimbex. Continue on lovenox, baricitinib, dexamethasone and vit supplement 01/18 patient continues to remain intubated. Covid pneumonia. Is currently on assist control respiratory rate of 30 tidal volume 450 FiO2 of 55% and PEEP of 15. She is currently on heparin drip, propofol and Nimbex. Patient continues to tolerate prone positioning 16 hours overnight. Continues to receive dexamethasone, vitamin supplement, anticoagulation with heparin, baricitinib. Labs are reviewed patient has a hemoglobin stable at 12.2. This morning pH 7.48 PCO2 44 bicarb 32 creatinine 0.73 AST 100 chest x-ray done this morning suggestive of ARDS and pneumonia 01/19 patient continues to remain intubated currently on assist-control vent with a rate of 30 tidal volume 450 FiO2 50 and PEEP of 15. Continues to remain on propofol and Nimbex. Continue heparin drip for anticoagulation. Remains on Baricitinib , vitamin supplementation and dexamethasone. Labs reviewed hemoglobin stable at 12 PTT 53 blood gas obtained today suggest a pH of 7.45 pCO2 46 pO2 69 bicarb 32 BUN 23 creatinine 0.0.8 glucose 122 AST ED ALT 226. inflammation markers ordered for tomorrow last set was obtained on 01/12 01/20 Intubated. Vitals reviewed patient's afebrile pulse of 68 respiratory rate 30 blood pressure. 94/56 oxygen 91% on 50% FiO2. Patient remains on assist control, tidal volume 450 respiratory rate 30 FiO2 of 50% and PEEP of 15. He is currently on Pneumovax at 3 mics per KG per minute propofol at 50 Micro-K to Coumadin and heparin drip. Patient labs are reviewed hemoglobin is 11.7. Arterial blood gas at 50% FiO2 has a pH of 7.47 pO2 of 77 bicarb of 31 BUN 24 creatinine 0.7 LDH [id number] CRP 8.70. CRP is slightly elevated with improvement in LDH. Continue to monitor patient with the goal with treatment on heparin, as dexamethasone, vitamin supplementation and Baricitinib . Blood sugar are well controlled. 01/21: Patient remains intubated and on mechanical ventilation with tidal volume 400, FiO2 40 and PEEP of 16. Patient is on propofol and fentanyl drips. He is on tube feedings to be increased to 26 ML's per hour and tolerating. She he has had 100 250 ML's of urine output per hour. He has been afebrile, heart rate 70, respiratory rate 30, blood pressure 115/64, pulse ox 93%. Repeat blood work reveals WBC 7.4, hemoglobin 12, platelet count 310. D-dimer 1.23. Sodium 134, BUN 24 and creatinine 0.73. Blood sugars are running between 101 and 164. AST 105, ALT 261, alkaline phosphatase 135. LDH 999. C-reactive protein 13.5. Albumin 2.9. Gallbladder ultrasound reveals nonspecific pattern of liver can be seen with hepatic steatitis or hepatocellular disease including hepatitis. The chest x-ray reveals bilateral patchy airspace disease stable. 01/22: Remains in the intensive care unit intubated and on mechanical ventilation with tidal volume 400, FiO2 40, PEEP of 13. Paralytics for pause this morning and patient had significant drop in his pulse ox. He is currently on propofol, fentanyl and Nimbex. He has been afebrile, heart rate 73, blood pressure 99/63, pulse ox 90%. Repeat blood work reveals hemoglobin 11.6. Creatinine 0.81. Blood sugars are running between 98 and 155. AST 85, ALT 260, alkaline phosphatase 132. LDH 954, C-reactive protein 6.8. Repeat chest x-ray reveals bilateral patchy diffuse airspace disease stable. Patient is continued on Baricitinib, Lovenox 40 mg subcu daily, dexamethasone 6 mg IV push and vitamin supplements 01/23: Remains in the intensive care unit on mechanical ventilation with tidal volume 400, FiO2 40 and PEEP of 10. Patient is scheduled for trach and PEG tube placement today. He is currently on propofol, fentanyl and Nimbex. Patient remains afebrile, heart rate 69, respiratory rate 30, blood pressure 120/76, pulse ox 93%. Repeat blood work reveals creatinine is 0.71. WBC 8.3, hemoglobin 12.9. AST 111, ALT 328, alkaline phosphatase 153. Blood sugars have been running between 92 and 193. Sputum culture is showing Corynebacterium species from 01/21 and Aspergillus from 01/14. Repeat chest x-ray reveals bilateral patchy diffuse airspace disease stable. Patient is continued on Baricitinib, Lovenox 40 mg subcu daily, dexamethasone 6 mg IV push and vitamin supplements 01/24: Patient is status post trach and PEG tube done yesterday by Dr. Olivares. Patient is off Nimbex and he has his eyes open but not following commands. Patient's is planning to come in today to see him. He remains on ventilator with tidal volume 300, FiO2 50 and PEEP of 10. Repeat chest x-ray reveals diffuse bilateral infiltrate stable. Antibiotics have been changed to ce fepime and patient started on IV Voriconazole. Patient is continued on dexamethasone, Lovenox and vitamin supplements. WBC 17.2, hemoglobin 12.3. Sodium 130, BUN 21 creatinine 0.83. Total bilirubin 2, AST 54, ALT 248, alkaline phosphatase 132. Capillary blood glucose running between 80 and 193. 01/25: Patient remains in the intensive care unit on mechanical ventilation with tidal volume 400, FiO2 is been increased to 100 and PEEP of 12. Patient is currently on propofol, and was started on vasopressors yesterday and is status post 2 L of IV fluid. Temperature max 101.3. Pulse 87, respiratory rate 33, blood pressure 120/57, pulse ox 95%. cafeteria monitor is a sinus rhythm. Repeat blood work reveals WBC 8.3, hemoglobin 11. Sodium 136, chloride 108. Creatinine is 0.83. Calcium 7.9. Total bilirubin 2.7, AST 64, ALT 171, alkaline phosphatase 127. LDH 1187. C-reactive protein 32.6. Blood sugars are running between 133 and 173. Urine culture is showing gram-negative bacilli. Blood culture from 01/24 showing no growth at 24 hours. Repeat chest x-ray reveals clear to megaly with bilateral confluent mid to lower lung opacities consistent with: 19 infection redemonstrated. No significant change. Patient is currently on cefepime, Zyvox and there, so for worsening bilateral pulmonary infiltrate, pneumonia. REVIEW OF SYSTEMS. Unable to obtain due to mechanical ventilation PHYSICAL EXAMINATION Gen: This is a 55-year-old male. He is resting in ICU bed, on mechanical ventilation status post trach and PEG, appears to be comfortable. Full examination deferred to the intensive due to mechanical ventilation and Covid 19. ASSESSMENT AND PLAN 1. Acute hypoxic respiratory failure secondary to Covid 19 pneumonia and possible secondary pneumonia, gram-negative and fungal. Patient required intubation 01/14. Patient is status post trach and PEG tube placement 01/[address] Olivares. Patient started on Remdesivir was discontinued by pulmonary, on January 12/2021 started on baricinib 4 mg daily, Baricitinib discontinued on 01/24. Continue cefepime, dexamethasone, Lovenox, Zyvox, voriconazole, continue ventilatory management per medical staff credentialing coordinator. 2. Acute respiratory distress syndrome secondary to coronavirus pneumonia. 3. Acute septic shock requiring vasopressors. Patient is status post IV fluid bolus and started on vasopressors. 4. History of bilateral pulmonary emboli and DVT in 2015. CTA negative for PE. Not on chronic anticoagulation. 5. Acute transaminitis secondary to Covid 19. 6. Generalized osteoarthritis. 7. Degenerative changes in the cervical spine status post fusion of C5-6. 8. 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 9. Elevated liver function tests, transaminitis. 10. GI prophylaxis. Protonix. 11. DVT prophylaxis. Lovenox. DISCHARGE PLAN Home. vs IP rehab . will expect to stay here for covid protracted length of time Impression and plan of care have been directed as dictated by the signing physician. Shakila Mosqueda nurse practitioner acting as scribe for signing physician. Objective - Vital Signs Vital signs: Vital Signs Temp 99.3 F 01/25/21 08:00 Pulse 82 01/25/21 10:00 Resp 22 01/25/21 10:00 BP 99/57 01/25/21 10:00 Pulse Ox 93 L 01/25/21 10:00 Intake & Output 01/24/21 01/25/21 01/25/21 18:59 06:59 18:59 Intake Total 4474.273 0802.149 305.783 Output Total 640 2220 115 Balance 8110.862 8285.149 190.783 Weight 102.7 kg 104.7 kg 104.7 kg Intake: IV 309 276 69 Pressure Bags 69 36 9 Sodium Chloride 0.9% 1, 240 240 60 000 ml @ 20 mls/hr IV . Q24H [facility] Rx#:[id number] Intake, IV Titration 3612.850 3738.149 110.783 Amount Cisatracurium 200 mg In 196.9 Sodium Chloride 0.9% 180 ml @ 1 MCG/KG/MIN 6.6 mls /hr IV .Q24H [facility] Rx#: [id number] Dexmedetomidine/0.9% NaCl 69.066 84.900 (Pmx) 400 mcg In Empty Bag 1 bag @ 0.2 MCG/KG/HR 5.135 mls/hr IV .[id number] [facility] Rx#:[id number] Linezolid 600 mg In 300 Dextrose/Water 1 300ml. bag @ 150 mls/hr IVPB Q12H [facility] Rx#:[id number] Norepinephrine 4 mg In 142.360 Sodium Chloride 0.9% 250 ml @ 0.05 MCG/KG/MIN 19. 564 mls/hr IV .[id number] [facility] Rx#:[id number] Sodium Chloride 0.9% 1, 1000 2000 000 ml @ 999 mls/hr IV . Q1H1M [facility] Rx#:[id number] Voriconazole 200 mg In 100 Sodium Chloride 0.9% 100 ml @ 125 mls/hr IVPB Q12HR [facility] Rx#:[id number] fentaNYL (PF). 1,000 mcg 69.611 In Sodium Chloride 0.9% 80 ml @ 0.5 MCG/KG/HR 5. 285 mls/hr IV .[id number] [facility] Rx#:[id number] propofoL 1,000 mg In 286.063 363.889 110.783 Empty Bag 1 bag @ Titrate IV .Q0M [facility] Rx#: [id number] Tube Feeding 30 192 66 Other 180 60 Output: Urine 640 2220 115 Other: Voiding Method Indwelling Catheter Indwelling Catheter ABP, PAP, CO, CI - Last Documented Arterial Blood Pressure 71/33 - Labs CBC & Chem 7: 01/25/21 04:42 01/25/21 04:42 Labs: Abnormal Lab Results - Last 24 Hours (Table) 01/24/21 01/24/21 01/24/21 Range/Units 10:22 12:57 18:31 RBC (4.30-5.90) m/uL Hgb (13.0-17.5) gm/dL Hct (39.0-53.0) % Lymphocytes # (1.0-4.8) k/uL D-Dimer (<0.60) mg/L FEU ABG pH (7.35-7.45) ABG pCO2 (35-45) mmHg ABG pO2 (83-108) mmHg ABG Total CO2 (19-24) mmol/L ABG O2 Saturation (94-97) % Sodium (137-145) mmol/L Chloride (98-107) mmol/L BUN (9-20) mg/dL Glucose (74-99) mg/dL POC Glucose (mg/dL) 153 H 134 H (75-99) mg/dL Calcium (8.4-10.2) mg/dL Total Bilirubin (0.2-1.3) mg/dL AST (17-59) U/L ALT (4-49) U/L Alkaline Phosphatase (38-126) U/L Lactate Dehydrogenase (313-618) U/L C-Reactive Protein (<1.0) mg/dL Total Protein (6.3-8.2) g/dL Albumin (3.5-5.0) g/dL Procalcitonin 0.97 H (0.02-0.09) ng/mL 01/24/21 01/24/21 01/25/21 Range/Units 22:24 22:24 04:42 RBC 3.63 L 3.61 L (4.30-5.90) m/uL Hgb 11.3 L 11.0 L (13.0-17.5) gm/dL Hct 33.7 L 33.3 L (39.0-53.0) % Lymphocytes # 0.4 L (1.0-4.8) k/uL D-Dimer (<0.60) mg/L FEU ABG pH (7.35-7.45) ABG pCO2 (35-45) mmHg ABG pO2 (83-108) mmHg ABG Total CO2 (19-24) mmol/L ABG O2 Saturation (94-97) % Sodium 132 L (137-145) mmol/L Chloride (98-107) mmol/L BUN 23 H (9-20) mg/dL Glucose 113 H (74-99) mg/dL POC Glucose (mg/dL) (75-99) mg/dL Calcium 8.0 L (8.4-10.2) mg/dL Total Bilirubin 2.9 H (0.2-1.3) mg/dL AST (17-59) U/L ALT 170 H (4-49) U/L Alkaline Phosphatase (38-126) U/L Lactate Dehydrogenase (313-618) U/L C-Reactive Protein (<1.0) mg/dL Total Protein 5.2 L (6.3-8.2) g/dL Albumin 2.5 L (3.5-5.0) g/dL Procalcitonin (0.02-0.09) ng/mL 01/25/21 01/25/21 01/25/21 Range/Units 04:42 04:42 05:55 RBC (4.30-5.90) m/uL Hgb (13.0-17.5) gm/dL Hct (39.0-53.0) % Lymphocytes # (1.0-4.8) k/uL D-Dimer 9.04 H (<0.60) mg/L FEU ABG pH 7.34 L (7.35-7.45) ABG pCO2 47 H (35-45) mmHg ABG pO2 64 L (83-108) mmHg ABG Total CO2 27 H (19-24) mmol/L ABG O2 Saturation 91.8 L (94-97) % Sodium 136 L (137-145) mmol/L Chloride 108 H (98-107) mmol/L BUN (9-20) mg/dL Glucose 139 H (74-99) mg/dL POC Glucose (mg/dL) (75-99) mg/dL Calcium 7.9 L (8.4-10.2) mg/dL Total Bilirubin 2.7 H (0.2-1.3) mg/dL AST 64 H (17-59) U/L ALT 171 H (4-49) U/L Alkaline Phosphatase 127 H (38-126) U/L Lactate Dehydrogenase 1187 H (313-618) U/L C-Reactive Protein 32.6 H (<1.0) mg/dL Total Protein 5.1 L (6.3-8.2) g/dL Albumin 2.5 L (3.5-5.0) g/dL Procalcitonin (0.02-0.09) ng/mL 01/25/21 01/25/21 Range/Units 06:06 11:24 RBC (4.30-5.90) m/uL Hgb (13.0-17.5) gm/dL Hct (39.0-53.0) % Lymphocytes # (1.0-4.8) k/uL D-Dimer (<0.60) mg/L FEU ABG pH (7.35-7.45) ABG pCO2 (35-45) mmHg ABG pO2 (83-108) mmHg ABG Total CO2 (19-24) mmol/L ABG O2 Saturation (94-97) % Sodium (137-145) mmol/L Chloride (98-107) mmol/L BUN (9-20) mg/dL Glucose (74-99) mg/dL POC Glucose (mg/dL) 133 H 167 H (75-99) mg/dL Calcium (8.4-10.2) mg/dL Total Bilirubin (0.2-1.3) mg/dL AST (17-59) U/L ALT (4-49) U/L Alkaline Phosphatase (38-126) U/L Lactate Dehydrogenase (313-618) U/L C-Reactive Protein (<1.0) mg/dL Total Protein (6.3-8.2) g/dL Albumin (3.5-5.0) g/dL Procalcitonin (0.02-0.09) ng/mL Microbiology - Last 24 Hours (Table) 01/24/21 09:55 Urine Culture - Preliminary Urine,Catheterized 01/21/21 20:18 Gram Stain - Final Sputum Sputum Culture - Final Corynebacterium species
[2021-01-25] MEDS: NOREPINEPHRINE 4 MG in SODIUM CHLORIDE 0.9% 250 ML IV SCH (15:43)
[2021-01-25] MEDS: SODIUM CHLORIDE 0.9% 1,000 ML IV SCH (15:51)
[2021-01-25 17:34] LABS: Glucose,Whole Blood 165 mg/dL (75-99)
[2021-01-25 18:03] LABS: Glucose,Whole Blood 176 mg/dL (75-99)
[2021-01-26 00:34] LABS: Glucose,Whole Blood 163 mg/dL (75-99)
[2021-01-26] MEDS: CEFEPIME 2 GM in SODIUM CHLORIDE 0.9% 100 ML IVPB SCH ×3 (01:01→15:09)
[2021-01-26] MEDS: INSULIN ASPART (NovoLOG) 100 UNIT/ML VIAL SQ SCH ×4 (01:03→18:11)
[2021-01-26] MEDS: ARTIFICIAL TEARS-HYPROMELLOSE DROPS 15 ML BTL BOTH EYES SCH ×6 (01:03→20:06)
[2021-01-26] MEDS: CISATRACURIUM 200 MG in SODIUM CHLORIDE 0.9% 180 ML IV SCH (02:58)
[2021-01-26 04:29] LABS: Basophils % (A) 0 %; Eosinophils % (A) 0 %; HCT 35.1 % (39.0-53.0); HGB 11.1 gm/dL (13.0-17.5); Lymphocytes # (A) 0.5 k/uL (1.0-4.8); Lymphocytes % (A) 6 %; MCHC 31.7 g/dL (31.0-37.0); Mean Platelet Volume 8.4; Monocytes # (A) 0.3 k/uL (0-1.0); Monocytes % (A) 4 %; Neutrophils % (A) 88 %; Platelet Count 291 k/uL (150-450); RBC 3.58 m/uL (4.30-5.90); RDW 13.4 % (11.5-15.5)
[2021-01-26 04:40] LABS: MCV 97.8 fL (80.0-100.0)
[2021-01-26 04:41] LABS: Albumin 2.6 g/dL (3.5-5.0); Calcium 8.4 mg/dL (8.4-10.2); Potassium 5.8 mmol/L (3.5-5.1); Total Bilirubin 1.8 mg/dL (0.2-1.3); Total Protein 5.5 g/dL (6.3-8.2)
[2021-01-26 05:19] LABS: C Reactive Protein 35.7 mg/dL (<1.0)
[2021-01-26 05:41] LABS: ABG Base Excess -4.2 mmol/L; ABG HCO3 24 mmol/L (21-25); ABG Oxygen Saturation 97.7 % (94-97); ABG PCO2 65 mmHg (35-45); ABG PO2 108 mmHg (83-108); ABG TCO2 26 mmol/L (19-24); Allen Test Performed? Yes
[2021-01-26 05:44] LABS: ABG PH 7.18 (7.35-7.45)
[2021-01-26] MEDS: NOREPINEPHRINE 4 MG in SODIUM CHLORIDE 0.9% 250 ML IV SCH ×2 (06:01→13:59)
[2021-01-26 06:44] LABS: Glucose,Whole Blood 154 mg/dL (75-99)
--- NOTE | 2021-01-26 07:25 | XR ---
EXAMINATION TYPE: XR chest 1V portable DATE OF EXAM: 01/26/2021 COMPARISON: 01/25/2021 HISTORY: Shortness of breath. TECHNIQUE: Single frontal view of the chest is obtained. FINDINGS: There is a tracheostomy tube. There is a PICC line entering the left arm and terminating i n the SVC/R junction. There are diffuse airspace opacities unchanged compared to previous. There is no pneumothorax. There is no large pleural effusion. The heart size is normal. The osseous s tructures are intact IMPRESSION: No interval change in the airspace infiltrates.
--- NOTE | 2021-01-26 08:06 | P.PN ---
Subjective Progress Note Date: 01/26/21 This is a 55-year-old male patient who is being seen in the intensive care unit for respiratory failure secondary to COVID-19 related pneumonia. The patient became symptomatic on 01/11/2021 and the patient's condition progressively got worse. The patient is a nonvaccinated individual. The patient is known to have previous history of pulmonary emboli with a left lower extremity DVT and he is also known to have various other comorbidities including osteoarthritis, cervical neck fusion, previous right shoulder surgery related to arthritis. The patient had a CT angiogram at time of admission that showed bilateral multifocal confluent groundglass pulmonary opacities right more than left in the lower lungs and it was suboptimal for pulmonary embolism. He was started on Decadron. He was supported by BiPAP for respiratory support during the course of his illness as the patient became progressively more hypoxic and his oxygen requirements progressively got worse. Ultimately, the patient was intubated and placed on mechanical ventilator. At this point in time, the patient is sedated with propofol and paralyzed with Nimbex. Propofol is running at 50 mcg/kg per minute and Nimbex @ mcg kilogram per minute. The patient is quite secretions of the mechanical ventilator. At this point in time is an assist-control mode at the rate of 30, tidal volume of 450, FiO2 of 50% with a PEEP of 15. The patient continues to show diffuse bilateral pulmonary infiltrates. Chest x-ray was noted. Blood gases was noted and the patient's pH currently is at 7.49 with a pCO2 of 42 and pO2 of 62. His chest x-ray showed bilateral pulmonary infiltrates system was COVID 19 related pneumonia. Note of any pneumothorax. ET tube is sitting at least 3 cm above the charity.. The patient was kept on Decadron and he was also started on Baricitinib per protocol. The d-dimer during the course of the hospitalization was as high as 12 in the based on that the patient was placed on IV heparin on an empiric basis. The inflammatory markers were elevated and LDH was as high as 2929 and the levels have been gradually improving. The CRP level remains elevated at 8.7 the patient has normal renal function the chest x-ray from today shows bilateral pulmonary infiltrates, ET tube is at least 3 cm above the charity and the patient also has a left subclavian triple-lumen catheter in place. In terms of inflammatory markers, his LDH level is down to 999, the patient continues to have mild transaminitis, CRP is at 13.5. White cell count is 7.4. Her net fluid balance over the past several days has been -2.1 and later on 2.3 L as such the patient has been in a negative fluid balance and he has lost at least 6 kg On today's evaluation of 01/22/2021, patient is being seen for a follow-up. The patient is post COVID 19 related pneumonia with respiratory failure and the patient has been on mechanical ventilator, sedated and paralyzed. This morning, the patient is on propofol which is running at 50 mcg/kg per minute and Nimbex is running at 3 mcg/kg per minute. Patient is also on fentanyl at 1 mcg/kg/h. He is quite synchronous with the mechanical ventilator. On today's evaluation, the patient is an assist-control mode with a tidal volume of 400 FiO2 of 40%, PEEP of 13 and the patient has a respiratory rate of 30. The blood gases from today showed a pH of 7.42 with a pCO2 of 50 and pO2 of 65. The peak airway pressure on the mechanical ventilator is 21 which is considerably lower compared to yesterday. The chest x-ray from today is showing diffuse bilateral pulmonary infiltrates consistent with COVID 19 related pneumonia. ET tube is in a good location. No major interval change compared to yesterday. Meanwhile, the patient is still on a combination of Decadron and Baricitinib per protocol. Inflammatory markers have been gradually improving. The patient is LDH level is down to 954 and his CRP level is down to 6.8. The patient is a white cell count of 9.1 with a hemoglobin of 11.6. The patient's has some mild transaminitis which remains unchanged and the LFTs remain slightly elevated. Triglyceride level was 173 from yesterday. No fever. Most recent d-dimer is at 1.23. He is receiving enteral feeding for nutritional support in the form of white cell 1.2 at the rate of 26 mL an hour. He continues to make excellent urine output patient remains in a negative fluid balance of 2.2 L since yesterday. 01/23/2021, patient is being seen for a follow-up. The patient remains intubated on a mechanical ventilator. The patient remains sedated and paralyzed. The patient is a case of COVID 19 related pneumonia with respiratory failure. He has been on a mechanical ventilator since 01/14/2021. This morning, the patient is on propofol running at 75 mcg/kg per minute and the patient is also on fentanyl at 2 mcg/kg/h and the patient is also Nimbex running at 3 mcg/kg per minute. The patient is quite suggestive mechanical ventilator as of yesterday. The patient remains on a mechanical ventilator on assist control mode with a tidal volume of 400 and FiO2 of 40% and a PEEP of 12 which was gradually reduced and a respiratory rate of 30. The blood gases from today shows a pH of 7.45 with a pCO2 of 44 and pO2 of 72. The chest x-ray findings are essentially stable without any interval change compared to yesterday. ET tube remains in a good location. The patient remains on a combination of Decadron and Baricitinib per protocol. Aspergillus was cultured in the sputum which is probably a colonizer. We are repeating the sputum sample for now. The patient is afebrile. No significant leukocytosis the white cell count at 8.3. The rest of the labs are all stable. Normal renal function. He does have abnormalities in his liver function tests and there is some limited rise in the AST and ALP compared to yesterday and the levels being at around 28 and 153 respectively. The LDH level from yesterday was down to 954. The most recent d- dimer was at 1.23. The patient is on Lovenox for DVT prophylaxis. IV heparin was been discontinued. The peak airway pressures 25. The static pressure is 22 on today's evaluation. 01/24/2021, THE PATIENT IS BEING SEEN FOR A FOLLOW-UP IN THE INTENSIVE CARE UNIT. NOTE THAT THE PATIENT HAS BEEN ON A MECHANICAL VENTILATOR FOR 10 DAYS AT LEAST. THE PATIENT WAS PLACED ON A MECHANICAL VENTILATOR ON 01/14/2021. He was sedated and paralyzed. Based on all this, I made recommendations to proceed with a PEG and trach and the family was agreeable. As such the procedures were done yesterday without any major difficulties. The patient is currently off Nimbex. He remains sedated patient is currently on propofol which is running at 55 mcg/kg per minute. This morning, the patient was taken off the paralytics. He open up his eyes. He is not following any commands.. Nevertheless, he is doing sports as eye-opening and his looking around and trying to do some motor activity while laying down in bed. He remains on a mechanical ventilator. For now, the patient has a #[address] In terms of his vent management, the patient remains on assist control mode at the rate of 30 with a tidal volume of 400 and FiO2 of 50% with a PEEP of 10. No significant orotracheal secretions. Nevertheless, the chest x-ray from today has shown some worsening in the bilateral pulmonary infiltrates more so in the lower lobes. Another concerning thing is that the patient has spiked a temperature and the T- max was 102 and the patient also has developed an acute leukocytosis with a white cell count of 17. Note that he was on a combination of Decadron and Baricitinib. The patient is also has cultures Aspergillus fumigatus in the sputum and the most recent sputum culture was positive for corynebacterium species. As such, infection is obviously a concern in this patient. Hemodynamically stable. Blood work from today shows a white cell count 17, hemoglobin is at 12.3 with a platelet count of 329. Blood gases from today showed a pH of 7.37 with a pCO2 of 50 and pO2 of 72. Sodium is at 1:30, BUN is at 21 with a creatinine of 0.8. LFTs are slightly abnormal with a ALT of 132, AST of 248 and these are essentially lower compared to yesterday's values. The LDH level is down to 954 from few days back. On today's chest x-ray, the tracheostomy tube is in a good location. Fluid balance over the past 24 hours has been in the order of -500 mL. He has been essentially developing a negative fluid balance as the patient is producing adequate amount of urine output over the past several days and this is without diuresis All 3 2020, the patient is being seen for a follow-up. 55-year-old male patient, post COVID 19 related pneumonia with respiratory failure, post PEG and tracheostomy tube insertion. The patient was doing some good progress yesterday. We managed to discontinue the paralytics. We managed also to wean off the sedation and he got to the point where he was fully alert and awake and was following commands. Nevertheless, as the day went on yesterday, the patient became progressively more asynchronous a mechanical ventilator, agitated, tachypneic, hypotensive. Repeat blood work was done. Repeat chest x-ray was done. Repeat blood gases was done. He was becoming obvious that the patient was developing a right lung pneumonia and the patient had worsening consolidation of the right lung and the patient was developing worsening bilateral pulmonary infiltrates. At that point, his antibiotic for further broaden. I had him currently on a combination of cefepime, Zyvox, and voriconazole. Note that his earlier sputum samples have cultures Aspergillus an d Rhino bacteria. He is fever broke and he is currently afebrile. In terms of his blood work, the patient's white cell count currently is at 8.3. He is off the Baricitinib. Pro-calcitonin level is pending for now. Meanwhile, the patient received a total of 2 L of IV fluids. He was started on pressors and norepinephrine infusion is currently running at 0.05 mcg/kg per minute. He is also sedated on propofol which is currently running at 75 g kilogram per minute and the patient is also on Precedex at 0.3 mcg/kg per minute. He is quite 6 is a mechanical ventilator at this point in time. He was started on enteral feeding for nutritional support through his PEG tube. In terms of his blood work, his LDH level is 1108 7 and his CRP level is 32. LFTs are being monitored and the patient is currently on voriconazole. LFTs remains stable with a ALT of 171, AST of 64 patient was started on enteral feeding for nutritional support. He is currently receiving vitamin A at the rate of 20 this is an hour. Urine output is adequate. As mentioned, he is afebrile. He is having respiratory secretions and going we are going to reculture the sputum sample. The patient is also on Decadron. Blood culture and urine culture were sent yesterday. He jumped up to 9.04 and the patient remains on Lovenox for DVT prophylaxis. She remains on a mechanical ventilator. This morning, he is an assist-control at the rate of 22 with a tidal volume of 400 and FiO2 of 40% with a PEEP of 12. The blood gases from today shows a pH of 7.34 with a pCO2 of 47 and pO2 of 64. Current pulse ox is around 96%. 01/26/2021, the patient is still sedated and paralyzed. As mentioned earlier, the patient is post tracheostomy tube insertion of PEG tube insertion for prolonge respiratory failure for COVID 19 related pneumonia. He was doing following this procedure and we got to a point where we took him off the paralytics and he was being weaned off the sedation. Nevertheless, he became acutely restless, asynchronous, febrile, hypotensive, and the same time the tracheostomy tube started leaking air due to leaks around the tracheostomy tube stoma. At that point, I had to 3 sedated back and currently is on accommodation propofol and Precedex. Propofol is running at 75 mcg/kg per minute and Precedex currently is at 0.3 mcg/kg per minute. The patient is also paralyzed with Nimbex. He is on a mechanical ventilator. At this point, there is an assist- control mode at the rate of 22 with a tidal volume of 450, PEEP currently is at 12 with an FiO2 of 100%. Chest x-ray still showing bilateral pulmonary infiltrates although there is some limited inferior improvement and infiltration on the left. The patient has a #8 Shiley tracheostomy tube which is high in the trachea and there is you've was very positional in terms of leaks and appropriate positioning was done with the flexion of the neck to reduce the amount of leak down to 25 mL in terms of the returned tidal volume. His current peak airway pressures 33. His pH is at 7.18 with a pCO2 of 65 and pO2 of 108 and accordingly to his FiO2 was dropped down to 80%. Hemodynamically stable. He is afebrile. White cell count is at 8. He is currently on a broad-spectrum antibiotic coverage using a combination of voriconazole, Zyvox and cefepime. He remains on Decadron. A repeat sputum sample was obtained and the urine cultures positive for gram-negative bacillus. Activity being utilized and the patient's enteral feeding for nutritional support. The plan for today is to gradually wean down the FiO2 and give the patient and paralytic holiday. Otherwise, is doing well. He remains on Decadron. Rest of medication was reviewed. Labs were reviewed. Chest x-ray was reviewed. White cell count is at 8 with a hemoglobin of 11.1. Inflammatory markers continue to be elevated. His LDH level is at 1156 and the CRP level is at 5.5. LFTs are still abnormal this being monitored very closely. His AST is at 184 and ALT is at 135 and a bilirubin currently is at 1.8. Calcium level is at 8.4. Serum albumin is at 2.6. Objective - Vital Signs Vital signs: Vital Signs Temp 99.0 F 01/26/21 04:00 Pulse 97 01/26/21 07:00 Resp 22 01/26/21 07:00 BP 104/65 01/26/21 05:00 Pulse Ox 96 01/26/21 07:00 Intake & Output 01/25/21 01/26/21 01/26/21 18:59 06:59 18:59 Intake Total 8034.882 2934.791 40 Output Total 595 480 40 Balance 758.344 787.791 0 Weight 104.7 kg Intake: IV 294 312 26 Pressure Bags 54 72 6 Sodium Chloride 0.9% 1, 240 240 20 000 ml @ 20 mls/hr IV . Q24H [facility] Rx#:[id number] Intake, IV Titration 671.344 697.791 Amount Cisatracurium 200 mg In 0 94.71 Sodium Chloride 0.9% 180 ml @ 1 MCG/KG/MIN 6.6 mls /hr IV .Q24H [facility] Rx#: [id number] Dexmedetomidine/0.9% NaCl 150.922 43.733 (Pmx) 400 mcg In Empty Bag 1 bag @ 0.2 MCG/KG/HR 5.135 mls/hr IV .[id number] [facility] Rx#:[id number] Norepinephrine 4 mg In 147.116 27.782 Sodium Chloride 0.9% 250 ml @ 0.05 MCG/KG/MIN 19. 564 mls/hr IV .[id number] [facility] Rx#:[id number] propofoL 1,000 mg In 373.306 531.566 Empty Bag 1 bag @ Titrate IV .Q0M [facility] Rx#: [id number] Tube Feeding 208 168 14 Other 180 90 Output: Urine 595 480 40 Other: Voiding Method Indwelling Catheter Indwelling Catheter ABP, PAP, CO, CI - Last Documented Arterial Blood Pressure 134/56 - Exam Gen. appearance -No acute distress, sedated and not paralyzed , and the patient has a tracheostomy tube and #[address] tube in place. He seems to be opening his eyes spontaneously and moving. . He still sedated. She remains on paralytics for now. HEENT examination is grossly unremarkable. Neck supple. Full range of motion. No adenopathy thyromegaly or neck vein distention. Cardiac exam revealed the PMI to be normally situated and sized. The rhythm was regular and no extrasystoles were noted during several minutes of auscultation. The first and second heart sounds were normal and physiologic splitting of the second heart sound was noted. There were no murmurs, rubs, clicks, or gallops. Lungs reveal diffuse bilateral coarse rhonchi. Diffuse bilateral crackles. Breath sounds equal bilaterally. Breath sounds are unchanged. Abdominal exam revealed normal bowel sounds. The abdomen was soft, non-tender, and without masses, organomegaly, or appreciable enlargement of the abdominal aorta. The PEG tube is in a good location and there is no abdominal distention. No bleeding around the PEG tube site. Extremities are intact. No cyanosis clubbing or edema. Examination of the skin revealed no evidence of significant rashes, suspicious appearing nevi or other concerning lesions.. Neurologic examination , sedated and paralyzed for now - Labs CBC & Chem 7: 01/26/21 04:05 01/26/21 04:05 Labs: Abnormal Lab Results - Last 24 Hours (Table) 01/25/21 01/25/21 01/25/21 Range/Units 11:24 11:52 17:32 RBC (4.30-5.90) m/uL Hgb (13.0-17.5) gm/dL Hct (39.0-53.0) % Lymphocytes # (1.0-4.8) k/uL ABG pH (7.35-7.45) ABG pCO2 (35-45) mmHg ABG Total CO2 (19-24) mmol/L ABG O2 Saturation (94-97) % Sodium (137-145) mmol/L Potassium (3.5-5.1) mmol/L BUN (9-20) mg/dL Glucose (74-99) mg/dL POC Glucose (mg/dL) 167 H 173 H 165 H (75-99) mg/dL Total Bilirubin (0.2-1.3) mg/dL AST (17-59) U/L ALT (4-49) U/L Alkaline Phosphatase (38-126) U/L Lactate Dehydrogenase (313-618) U/L C-Reactive Protein (<1.0) mg/dL Total Protein (6.3-8.2) g/dL Albumin (3.5-5.0) g/dL 01/25/21 01/26/21 01/26/21 Range/Units 18:02 00:32 04:05 RBC 3.58 L (4.30-5.90) m/uL Hgb 11.1 L (13.0-17.5) gm/dL Hct 35.1 L (39.0-53.0) % Lymphocytes # 0.5 L (1.0-4.8) k/uL ABG pH (7.35-7.45) ABG pCO2 (35-45) mmHg ABG Total CO2 (19-24) mmol/L ABG O2 Saturation (94-97) % Sodium (137-145) mmol/L Potassium (3.5-5.1) mmol/L BUN (9-20) mg/dL Glucose (74-99) mg/dL POC Glucose (mg/dL) 176 H 163 H (75-99) mg/dL Total Bilirubin (0.2-1.3) mg/dL AST (17-59) U/L ALT (4-49) U/L Alkaline Phosphatase (38-126) U/L Lactate Dehydrogenase (313-618) U/L C-Reactive Protein (<1.0) mg/dL Total Protein (6.3-8.2) g/dL Albumin (3.5-5.0) g/dL 01/26/21 01/26/21 01/26/21 Range/Units 04:05 05:37 06:42 RBC (4.30-5.90) m/uL Hgb (13.0-17.5) gm/dL Hct (39.0-53.0) % Lymphocytes # (1.0-4.8) k/uL ABG pH 7.18 L* (7.35-7.45) ABG pCO2 65 H (35-45) mmHg ABG Total CO2 26 H (19-24) mmol/L ABG O2 Saturation 97.7 H (94-97) % Sodium 135 L (137-145) mmol/L Potassium 5.8 H (3.5-5.1) mmol/L BUN 28 H (9-20) mg/dL Glucose 198 H (74-99) mg/dL POC Glucose (mg/dL) 154 H (75-99) mg/dL Total Bilirubin 1.8 H (0.2-1.3) mg/dL AST 101 H (17-59) U/L ALT 194 H (4-49) U/L Alkaline Phosphatase 135 H (38-126) U/L Lactate Dehydrogenase 1156 H (313-618) U/L C-Reactive Protein 35.7 H (<1.0) mg/dL Total Protein 5.5 L (6.3-8.2) g/dL Albumin 2.6 L (3.5-5.0) g/dL Microbiology - Last 24 Hours (Table) 01/25/21 11:50 Sputum Culture - Preliminary Sputum 01/24/21 09:55 Urine Culture - Preliminary Urine,Catheterized Gram Neg Bacilli 01/24/21 10:22 Blood Culture - Preliminary Blood No Growth after 24 hours Assessment and Plan Plan: 1 Acute hypoxemic respiratory failure secondary to coronavirus associated pneumonia, with intubation and mechanical ventilation, initiated on January 14, for worsening hypoxemia. Noted the patient was initially on nasal cannula oxyg en supplementation and following that the patient required BiPAP and ultimately the patient to be intubated on 01/14/2021 for respiratory failure secondary to COVID-19 related to pneumonia. Patient is currently on a combination of Decadron and Baricitinib per protocol. The patient is post tracheostomy tube insertion and suggested was inserted on 01/23/2021. Meanwhile the patient has developed superinfection. This could be potentially hospital-acquired with a ventilator associated pneumonia. Repeat cultures are pending. The current cultures are showing Aspergillus and corynobacterium. The patient had worsening infiltration bilaterally. He was covered with broad-spectrum antibiotics. The pro calcitonin level came back at 0.9. The patient is currently on a combination of Zyvox, cefepime and voriconazole. He is off the Baricitinib for now. Doing essentially stable for now. He was having some leaking around the tracheostomy stoma and the leak was managed by some had positioning. The leak is in order of 25-50 mL with each tidal volume. The catheter pressures are measured. Is still elevated. FIO 00%% with a PEEP of 12. PO2 has improved and the patient will be having his FiO2 weaned 2 Acute respiratory distress syndrome (ARDS), secondary to coronavirus associated pneumonia. 3 Previous history of bilateral pulmonary emboli, and left leg DVT, 2016, currently on Lovenox. 4 History of osteoarthritis. 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 Acute sepsis with hypotension probably related to respiratory infection/pneumonia, consider a ventilator associated pneumonia. The patient is currently off Baricitinib and the patient on broad-spectrum antibiotics as mentioned the patient is on low-dose norepinephrine infusion. The patient was given a total of 2 L of IV fluids.THE PATIENT IS CURRENTLY OFF PRESSORS. THE PATIENT IS NORMOTENSIVE. 8 fever Plan: Continue ventilator support. The patient is a tracheostomy tube in place . He is on VC plus mode and keep the tidal volume of 450, dropped a respiratory rate down to 22, inspiratory time is at 0.8 seconds and keep the FiO2 of 80% with a PEEP of 12. We'll monitor the blood gases. Tracheostomy tube is in a good location. Air leak is positional and a chest x-ray is showing some limited improvement in the bilateral pulmonary infiltration. The patient is currently off pressors Pro calcitonin level is at 0.9 Continue cefepime, Zyvox and voriconazole as broad-spectrum antibiotic coverage for now. Repeat sputum sample and cultures. Blood cultures were also sent.. The patient remains on Decadron. Baricitinib has been discontinued. monitor LFTs Monitor fever pattern Monitor white count Stop the Baricitinib and continue the Decadron for now Enteral feeding will be started 24 hours after insertion of the PEG Lovenox 40 mg SC prophylaxis We'll continue to follow make further recommendations based on his progress. Condition remains critical. The has been updated on his condition. I had a lengthy discussion with her. This evaluation was done and more than 30 minutes. Time with Patient: Greater than 30 Time with Patient: Greater than 30
[2021-01-26] MEDS: HYDROmorphone 1 MG/ML 1 ML SYRINGE IVP PRN ×2 (08:13→17:44)
[2021-01-26] MEDS: ZINC SULFATE 220 MG CAP PO SCH (08:14)
[2021-01-26] MEDS: DEXAMETHASONE SOD PHOSPHATE 10 MG/ML 1 ML VIAL IVP SCH (08:14)
[2021-01-26] MEDS: ENOXAPARIN 40 MG/0.4 ML SYRINGE SQ SCH (08:14)
[2021-01-26] MEDS: LACTULOSE 20 GM/30 ML CUP PO SCH (08:15)
[2021-01-26] MEDS: ASCORBIC ACID 500 MG TAB PO SCH (08:15)
[2021-01-26] MEDS: CHLORHEXIDINE GLUCONATE 15 ML CUP MUCOUS MEM SCH ×2 (08:15→20:41)
[2021-01-26] MEDS: PANTOPRAZOLE 40 MG/10 ML VIAL IVP SCH (08:15)
[2021-01-26] MEDS: CHOLECALCIFEROL 25 MCG (1000 IU) TABLET PO SCH (08:15)
[2021-01-26] MEDS: DEXMEDETOMIDINE/0.9% NACL(PMX) 400 MCG in EMPTY BAG 1 BAG IV SCH (09:44)
--- NOTE | 2021-01-26 11:04 | P.PN ---
Progress Note - Text Progress Note Date: 01/26/21 Patient remains on the ventilator in the ICU. He's had some trouble with his tidal volume. The nursing staff suggested his tracheostomy tubing which appears to help this. On exam his trach site is clean. Packs is clean. COVID-19 pneumonitis., Malnutrition. We'll continue supportive care..
[2021-01-26] MEDS ORDERED: DEXTROSE 50% SYRINGE 50 ML IVP STA (11:05)
[2021-01-26] MEDS ORDERED: SODIUM BICARB 8.4% 50 ML SYR (1 MEQ/ML) IV STA (11:08)
[2021-01-26] MEDS ORDERED: INSULIN REGULAR 100 UNIT/ML VIAL (IV) IV ONE (11:15)
[2021-01-26] MEDS: VORICONAZOLE 200 MG in SODIUM CHLORIDE 0.9% 100 ML IVPB SCH ×2 (11:20→20:41)
[2021-01-26] MEDS ORDERED: SODIUM BICARB 8.4% 50 ML SYR (1 MEQ/ML) ONE (11:22)
[2021-01-26 11:43] LABS: Glucose,Whole Blood 183 mg/dL (75-99)
[2021-01-26] MEDS ORDERED: CALCIUM GLUCONATE 1 GM in SODIUM CHLORIDE 0.9% 100 ML IVPB ONE (11:45)
[2021-01-26] MEDS: LINEZOLID 600 MG in DEXTROSE/WATER 1 300ML.BAG IVPB SCH ×2 (12:16→23:18)
--- NOTE | 2021-01-26 14:18 | P.PN ---
Subjective Progress Note Date: 01/26/21 HISTORY OF PRESENT ILLNESS This is a 55-year-old male patient of Dr. 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 Patient states he has not been feeling well since Thursday. He said shortness of breath cough is nonproductive along with fever and chills, exertional dyspnea. He denies having any nausea vomiting or diarrhea. He denies any close contacts to known Covid people. He states his temperature is been up to 102.7 at home. He is not vaccinated. Patient presented to [facility] emergency center and found to be febrile at 101.1, heart rate 90, blood pressure 122/80, pulse ox 85% on room air. CBC revealed platelet count of 128. D-dimer 0.82. Sodium 131 otherwise electrolytes and renal function were normal. Blood sugar 147. Troponin negative. Coronavirus PCR positive. Chest x-ray reveals patchy bilateral airspace disease especially in the mid and lower lungs. Correlate for multifocal pneumonia including Covid 19 pneumonia. CTA of the chest was suboptimal study without central acute pulmonary embolism. Bilateral multifocal and confluent groundglass opacities right greater than left and greater in the lower lungs consistent with known Covid 19 infection. Patient is seen today in the emergency center waiting for bed on the [facility] floor, started on Remdesivir, Lovenox, dexamethasone and vitamin supplements, consult with pulmonary medicine. 01/12: Patient is comfortable, however he requires 40 L of oxygen via airvo sats 88-89%, he feels better today compared to his nonrebreather mask yesterday, patient did not sleep well, patient does not have any cough, however he does have shortness of breath. Patient denies any aspiration, appetite is still marginal, patient has insomnia vitals, blood sugar currently is 243, creatinine of 0.98, d-dimer is 0.84, CRP is elevated, LDH is elevated, venous Doppler, shows chronic DVT, left popliteal, in the posterior tibial veins, without any obstruction of flow. No acute DVT identified CTA, shows suboptimal, without central acute pulmonary emboli, has bilateral multifocal and confluent groundglass opacities, right greater than left, lower lobe, consistent with COVID-19 infection and remdesivir discontinued by pulmonary today and is outside of the window for remdesivir 01/13: Patient is on aerosol 14 L, with nonrebreather mask, 15 L, hypoxemia n oted on 88%, worse with coughing, however his nonrebreather mask is very loose. Nurse is worriedwith the turn of events, and requested an ICU transfer, Dr. Canales has seen the patient, and is stable for floor management at this time, patient is not significant tachypnea, and is not tiring out. There is no hemoptysis, and mucus is productive, patient's doing incentive spirometry, up 2 L. 01/14: Patient remains in the intensive care unit, he was intubated this morning as he was desaturating with BiPAP. He has been afebrile, heart rate 73, blood pressure 93/47, pulse ox 90%. CBC is unremarkable. D-dimer 12.04. Sodium 135, creatinine 0.82. LDH 2929, C-reactive protein 5.2. Sputum culture is in progress. He has had good urine output. Chest x-ray reveals no evident convocation from catheters. Bilateral airspace disease. 01/15: Patient remains in the intensive care intubated and on mechanical ventilation with tidal volume 450, FiO2 80, PEEP of 15. Patient has been started on norepinephrine and remains on propofol, heparin drip, Nimbex. Repeat blood work revealed unremarkable CBC. Creatinine 0.88. Capillary blood glucose running between 195 and 215. AST 126, ALT 183, alkaline phosphatase 109. Sputum culture is in progress. Repeat chest x-ray reveals correlate for pneumonia versus edema, ARDS. Patient is continued on vitamin supplements, heparin drip, dexamethasone and Baricitinib. patient remains in intensive care intubated on mechanical ventilator at FiO2 60 percent PEEP respiratory rate of 30 tidal volume 450. Continues to maintain saturations between 94-95% on the current settings. Vitals otherwise stable labs reviewed today WBC is 9.5 hemoglobin 12.4 d-dimer is elevated at 4.98. ABG obtained today suggest pH of 7.4 pO2 53 bicarb 26 on 50% FiO2. Creatinine stable at 0.78 glucose is maintained between 145-190. LDH 1564 CRP is elevated at 4. Patient's inflammatory markers trending down. Patient's vent settings increased to 80% for inadequate oxygenation. Chest x-ray reviewed showed bilateral infiltrate consistent with coronavirus associated pneumonia. Patient continues intubated on propofol 70 bike but patient examined Nimbex 1.25 g daily per minute. Patient to receive 1 dose of Lasix today. Continue to remain on baricitinib day 2 PAtient remains intubaated since . patient continues too remain on assist control, TV 450 , peep 15 and fio2 of 60 %. patient was proned for 16 hours yesterday. CXR was reviewed, COVID pneumonia but no significant change was noted, Will repeat inflammatory markers tomorrow. Vent managment per boring machine set up operator jig. Patient contines to remain propofol , nimbex. Continue on lovenox, baricitinib, dexamethasone and vit supplement 01/18 patient continues to remain intubated. Covid pneumonia. Is currently on assist control respiratory rate of 30 tidal volume 450 FiO2 of 55% and PEEP of 15. She is currently on heparin drip, propofol and Nimbex. Patient continues to tolerate prone positioning 16 hours overnight. Continues to receive dexamethasone, vitamin supplement, anticoagulation with heparin, baricitinib. Labs are reviewed patient has a hemoglobin stable at 12.2. This morning pH 7.48 PCO2 44 bicarb 32 creatinine 0.73 AST 100 chest x-ray done this morning suggestive of ARDS and pneumonia 01/19 patient continues to remain intubated currently on assist-control vent with a rate of 30 tidal volume 450 FiO2 50 and PEEP of 15. Continues to remain on propofol and Nimbex. Continue heparin drip for anticoagulation. Remains on Baricitinib , vitamin supplementation and dexamethasone. Labs reviewed hemoglobin stable at 12 PTT 53 blood gas obtained today suggest a pH of 7.45 pCO2 46 pO2 69 bicarb 32 BUN 23 creatinine 0.0.8 glucose 122 AST ED ALT 226. inflammation markers ordered for tomorrow last set was obtained on 01/12 01/20 Intubated. Vitals reviewed patient's afebrile pulse of 68 respiratory rate 30 blood pressure. 94/56 oxygen 91% on 50% FiO2. Patient remains on assist control, tidal volume 450 respiratory rate 30 FiO2 of 50% and PEEP of 15. He is currently on Pneumovax at 3 mics per KG per minute propofol at 50 Micro-K to Coumadin and heparin drip. Patient labs are reviewed hemoglobin is 11.7. Arterial blood gas at 50% FiO2 has a pH of 7.47 pO2 of 77 bicarb of 31 BUN 24 creatinine 0.7 LDH [id number] CRP 8.70. CRP is slightly elevated with improvement in LDH. Continue to monitor patient with the goal with treatment on heparin, as dexamethasone, vitamin supplementation and Baricitinib . Blood sugar are well controlled. 01/21: Patient remains intubated and on mechanical ventilation with tidal volume 400, FiO2 40 and PEEP of 16. Patient is on propofol and fentanyl drips. He is on tube feedings to be increased to 26 ML's per hour and tolerating. She he has had 100 250 ML's of urine output per hour. He has been afebrile, heart rate 70, respiratory rate 30, blood pressure 115/64, pulse ox 93%. Repeat blood work reveals WBC 7.4, hemoglobin 12, platelet count 310. D-dimer 1.23. Sodium 134, BUN 24 and creatinine 0.73. Blood sugars are running between 101 and 164. AST 105, ALT 261, alkaline phosphatase 135. LDH 999. C-reactive protein 13.5. Albumin 2.9. Gallbladder ultrasound reveals nonspecific pattern of liver can be seen with hepatic steatitis or hepatocellular disease including hepatitis. The chest x-ray reveals bilateral patchy airspace disease stable. 01/22: Remains in the intensive care unit intubated and on mechanical ventilation with tidal volume 400, FiO2 40, PEEP of 13. Paralytics for pause this morning and patient had significant drop in his pulse ox. He is currently on propofol, fentanyl and Nimbex. He has been afebrile, heart rate 73, blood pressure 99/63, pulse ox 90%. Repeat blood work reveals hemoglobin 11.6. Creatinine 0.81. Blood sugars are running between 98 and 155. AST 85, ALT 260, alkaline phosphatase 132. LDH 954, C-reactive protein 6.8. Repeat chest x-ray reveals bilateral patchy diffuse airspace disease stable. Patient is continued on Baricitinib, Lovenox 40 mg subcu daily, dexamethasone 6 mg IV push and vitamin supplements 01/23: Remains in the intensive care unit on mechanical ventilation with tidal volume 400, FiO2 40 and PEEP of 10. Patient is scheduled for trach and PEG tube placement today. He is currently on propofol, fentanyl and Nimbex. Patient remains afebrile, heart rate 69, respiratory rate 30, blood pressure 120/76, pulse ox 93%. Repeat blood work reveals creatinine is 0.71. WBC 8.3, hemoglobin 12.9. AST 111, ALT 328, alkaline phosphatase 153. Blood sugars have been running between 92 and 193. Sputum culture is showing Corynebacterium species from 01/21 and Aspergillus from 01/14. Repeat chest x-ray reveals bilateral patchy diffuse airspace disease stable. Patient is continued on Baricitinib, Lovenox 40 mg subcu daily, dexamethasone 6 mg IV push and vitamin supplements 01/24: Patient is status post trach and PEG tube done yesterday by Dr. Olivares. Patient is off Nimbex and he has his eyes open but not following commands. Patient's is planning to come in today to see him. He remains on ventilator with tidal volume 300, FiO2 50 and PEEP of 10. Repeat chest x-ray reveals diffuse bilateral infiltrate stable. Antibiotics have been changed to ce fepime and patient started on IV Voriconazole. Patient is continued on dexamethasone, Lovenox and vitamin supplements. WBC 17.2, hemoglobin 12.3. Sodium 130, BUN 21 creatinine 0.83. Total bilirubin 2, AST 54, ALT 248, alkaline phosphatase 132. Capillary blood glucose running between 80 and 193. 01/25: Patient remains in the intensive care unit on mechanical ventilation with tidal volume 400, FiO2 is been increased to 100 and PEEP of 12. Patient is currently on propofol, and was started on vasopressors yesterday and is status post 2 L of IV fluid. Temperature max 101.3. Pulse 87, respiratory rate 33, blood pressure 120/57, pulse ox 95%. nuclear monitoring technician is a sinus rhythm. Repeat blood work reveals WBC 8.3, hemoglobin 11. Sodium 136, chloride 108. Creatinine is 0.83. Calcium 7.9. Total bilirubin 2.7, AST 64, ALT 171, alkaline phosphatase 127. LDH 1187. C-reactive protein 32.6. Blood sugars are running between 133 and 173. Urine culture is showing gram-negative bacilli. Blood culture from 01/24 showing no growth at 24 hours. Repeat chest x-ray reveals clear to megaly with bilateral confluent mid to lower lung opacities consistent with: 19 infection redemonstrated. No significant change. Patient is currently on cefepime, Zyvox and there, so for worsening bilateral pulmonary infiltrate, pneumonia. 01/26: Patient remains in intensive care unit on mechanical ventilation with tidal volume 450, FiO2 80 and PEEP of 12. He has been afebrile for greater than 24 hours. Heart rate 80, blood pressure 132/70, pulse ox 86%. He does have leaking around the tracheostomy site. Repeat blood work reveals WBC 8, hemoglobin 11.1, platelet count 291. Sodium 135, potassium 5.8, creatinine 1.15. Total bilirubin 1.8, AST 101, ALT 194, alkaline phosphatase 135. LDH 1156. C-reactive protein 35.7. Blood sugars are running between 154 and 183. Patient will be started on Levemir 10 units at bedtime. He is continued on cef epime, Zyvox and voriconazole. REVIEW OF SYSTEMS. Unable to obtain due to mechanical ventilation PHYSICAL EXAMINATION Gen: This is a 55-year-old male. He is resting in ICU bed, on mechanical ventilation status post trach and PEG, appears to be comfortable. Full examination deferred to the intensive due to mechanical ventilation and Covid 19. ASSESSMENT AND PLAN 1. Acute hypoxic respiratory failure secondary to Covid 19 pneumonia and possible secondary pneumonia, gram-negative and fungal. Patient required intubation 01/14. Patient is status post trach and PEG tube placement 01/[address] Olivares. Patient started on Remdesivir was discontinued by pulmonary, on January 12/2021 started on baricinib 4 mg daily, Baricitinib discontinued on 01/24. Continue cefepime, dexamethasone, Lovenox, Zyvox, voriconazole, continue ventilatory management per boring machine set up operator jig. 2. Acute respiratory distress syndrome secondary to coronavirus pneumonia. 3. Acute septic shock requiring vasopressors. Patient is status post IV fluid bolus and started on vasopressors. 4. History of bilateral pulmonary emboli and DVT in 2015. CTA negative for PE. Not on chronic anticoagulation. 5. Acute transaminitis secondary to Covid 19. 6. Generalized osteoarthritis. 7. Degenerative changes in the cervical spine status post fusion of C5-6. 8. 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 9. Elevated liver function tests, transaminitis. 10. Hyperglycemia secondary to steroids. Patient is on NovoLog scale, Levemir 10 units at bedtime added. 11. Severe hyperkalemia status post IV push calcium gluconate, dextrose and regular insulin, IV push sodium bicarb. 12. GI prophylaxis. Protonix. 13. DVT prophylaxis. Lovenox. DISCHARGE PLAN Home. vs IP rehab . will expect to stay here for covid protracted length of time Impression and plan of care have been directed as dictated by the signing physician. Shakila Mosqueda nurse practitioner acting as scribe for signing physician. Objective - Vital Signs Vital signs: Vital Signs Temp 98.5 F 01/26/21 08:00 Pulse 80 01/26/21 10:00 Resp 18 01/26/21 10:00 BP 132/70 01/26/21 10:00 Pulse Ox 99 01/26/21 10:00 Intake & Output 01/25/21 01/26/21 01/26/21 18:59 06:59 18:59 Intake Total 1137.715 8072.791 640.949 Output Total 595 480 340 Balance 758.344 787.791 300.949 Weight 104.7 kg Intake: IV 294 312 104 Pressure Bags 54 72 24 Sodium Chloride 0.9% 1, 240 240 80 000 ml @ 20 mls/hr IV . Q24H BRADY Rx#:[id number] Intake, IV Titration 671.344 697.791 323.949 Amount Cefepime 2 gm In Sodium 100 Chloride 0.9% 100 ml @ 25 mls/hr IVPB Q8HR [facility]AD[facility] Rx# :[id number] Cisatracurium 200 mg In 0 94.71 80.3 Sodium Chloride 0.9% 180 ml @ 1 MCG/KG/MIN 6.6 mls /hr IV .Q24H [facility]ADY Rx#: [id number] Dexmedetomidine/0.9% NaCl 150.922 43.733 4.66 (Pmx) 400 mcg In Empty Bag 1 bag @ 0.2 MCG/KG/HR 5.135 mls/hr IV .[id number] [facility]ADY Rx#:[id number] Norepinephrine 4 mg In 147.116 27.782 Sodium Chloride 0.9% 250 ml @ 0.05 MCG/KG/MIN 19. 564 mls/hr IV .[id number] [facility]ADY Rx#:[id number] propofoL 1,000 mg In 373.306 531.566 138.989 Empty Bag 1 bag @ Titrate IV .Q0M [facility]ADY Rx#: [id number] Tube Feeding 208 168 53 Other 180 90 160 Output: Urine 595 480 340 Other: Voiding Method Indwelling Catheter Indwelling Catheter Indwelling Catheter ABP, PAP, CO, CI - Last Documented Arterial Blood Pressure 86/62 - Labs CBC & Chem 7: 01/26/21 04:05 01/26/21 10:00 Labs: Abnormal Lab Results - Last 24 Hours (Table) 01/25/21 01/25/21 01/25/21 Range/Units 11:24 11:52 17:32 RBC (4.30-5.90) m/uL Hgb (13.0-17.5) gm/dL Hct (39.0-53.0) % Lymphocytes # (1.0-4.8) k/uL ABG pH (7.35-7.45) ABG pCO2 (35-45) mmHg ABG Total CO2 (19-24) mmol/L ABG O2 Saturation (94-97) % Sodium (137-145) mmol/L Potassium (3.5-5.1) mmol/L BUN (9-20) mg/dL Glucose (74-99) mg/dL POC Glucose (mg/dL) 167 H 173 H 165 H (75-99) mg/dL Total Bilirubin (0.2-1.3) mg/dL AST (17-59) U/L ALT (4-49) U/L Alkaline Phosphatase (38-126) U/L Lactate Dehydrogenase (313-618) U/L C-Reactive Protein (<1.0) mg/dL Total Protein (6.3-8.2) g/dL Albumin (3.5-5.0) g/dL 01/25/21 01/26/21 01/26/21 Range/Units 18:02 00:32 04:05 RBC 3.58 L (4.30-5.90) m/uL Hgb 11.1 L (13.0-17.5) gm/dL Hct 35.1 L (39.0-53.0) % Lymphocytes # 0.5 L (1.0-4.8) k/uL ABG pH (7.35-7.45) ABG pCO2 (35-45) mmHg ABG Total CO2 (19-24) mmol/L ABG O2 Saturation (94-97) % Sodium (137-145) mmol/L Potassium (3.5-5.1) mmol/L BUN (9-20) mg/dL Glucose (74-99) mg/dL POC Glucose (mg/dL) 176 H 163 H (75-99) mg/dL Total Bilirubin (0.2-1.3) mg/dL AST (17-59) U/L ALT (4-49) U/L Alkaline Phosphatase (38-126) U/L Lactate Dehydrogenase (313-618) U/L C-Reactive Protein (<1.0) mg/dL Total Protein (6.3-8.2) g/dL Albumin (3.5-5.0) g/dL 01/26/21 01/26/21 01/26/21 Range/Units 04:05 05:37 06:42 RBC (4.30-5.90) m/uL Hgb (13.0-17.5) gm/dL Hct (39.0-53.0) % Lymphocytes # (1.0-4.8) k/uL ABG pH 7.18 L* (7.35-7.45) ABG pCO2 65 H (35-45) mmHg ABG Total CO2 26 H (19-24) mmol/L ABG O2 Saturation 97.7 H (94-97) % Sodium 135 L (137-145) mmol/L Potassium 5.8 H (3.5-5.1) mmol/L BUN 28 H (9-20) mg/dL Glucose 198 H (74-99) mg/dL POC Glucose (mg/dL) 154 H (75-99) mg/dL Total Bilirubin 1.8 H (0.2-1.3) mg/dL AST 101 H (17-59) U/L ALT 194 H (4-49) U/L Alkaline Phosphatase 135 H (38-126) U/L Lactate Dehydrogenase 1156 H (313-618) U/L C-Reactive Protein 35.7 H (<1.0) mg/dL Total Protein 5.5 L (6.3-8.2) g/dL Albumin 2.6 L (3.5-5.0) g/dL 01/26/21 Range/Units 10:00 RBC (4.30-5.90) m/uL Hgb (13.0-17.5) gm/dL Hct (39.0-53.0) % Lymphocytes # (1.0-4.8) k/uL ABG pH (7.35-7.45) ABG pCO2 (35-45) mmHg ABG Total CO2 (19-24) mmol/L ABG O2 Saturation (94-97) % Sodium (137-145) mmol/L Potassium 6.2 H* (3.5-5.1) mmol/L BUN (9-20) mg/dL Glucose (74-99) mg/dL POC Glucose (mg/dL) (75-99) mg/dL Total Bilirubin (0.2-1.3) mg/dL AST (17-59) U/L ALT (4-49) U/L Alkaline Phosphatase (38-126) U/L Lactate Dehydrogenase (313-618) U/L C-Reactive Protein (<1.0) mg/dL Total Protein (6.3-8.2) g/dL Albumin (3.5-5.0) g/dL Microbiology - Last 24 Hours (Table) 01/24/21 09:55 Urine Culture - Final Urine,Catheterized Escherichia coli 01/25/21 11:50 Sputum Culture - Preliminary Sputum 01/24/21 10:22 Blood Culture - Preliminary Blood No Growth after 24 hours
[2021-01-26] MEDS: SODIUM CHLORIDE 0.9% 1,000 ML IV SCH (15:09)
[2021-01-26 17:55] LABS: Glucose,Whole Blood 201 mg/dL (75-99)
[2021-01-26] MEDS: INSULIN DETEMIR (LEVEMIR) 100 UNIT/ML SYR SQ SCH (20:41)
[2021-01-26 23:33] LABS: Glucose,Whole Blood 171 mg/dL (75-99)
[2021-01-26] MEDS: fentaNYL (PF). 1,000 MCG in SODIUM CHLORIDE 0.9% 80 ML IV SCH (23:41)
[2021-01-27] MEDS: ARTIFICIAL TEARS-HYPROMELLOSE DROPS 15 ML BTL BOTH EYES SCH ×6 (00:39→21:11)
[2021-01-27] MEDS: CEFEPIME 2 GM in SODIUM CHLORIDE 0.9% 100 ML IVPB SCH ×3 (00:39→15:46)
[2021-01-27] MEDS: INSULIN ASPART (NovoLOG) 100 UNIT/ML VIAL SQ SCH ×4 (00:39→18:15)
[2021-01-27] MEDS: NOREPINEPHRINE 4 MG in SODIUM CHLORIDE 0.9% 250 ML IV SCH ×2 (02:46→14:18)
[2021-01-27 04:58] LABS: Basophils % (A) 0 %; Eosinophils % (A) 0 %; HCT 31.9 % (39.0-53.0); HGB 10.7 gm/dL (13.0-17.5); Lymphocytes # (A) 0.6 k/uL (1.0-4.8); Lymphocytes % (A) 6 %; MCH 31.8 pg (25.0-35.0); MCHC 33.4 g/dL (31.0-37.0); Mean Platelet Volume 8.8; Monocytes # (A) 0.4 k/uL (0-1.0); Monocytes % (A) 4 %; Neutrophils # (A) 8.6 k/uL (1.3-7.7); Neutrophils % (A) 88 %; Platelet Count 317 k/uL (150-450); RBC 3.36 m/uL (4.30-5.90); RDW 13.4 % (11.5-15.5); WBC 9.8 k/uL (3.8-10.6)
[2021-01-27 05:05] LABS: ABG Base Excess 2.1 mmol/L; ABG HCO3 27 mmol/L (21-25); ABG Oxygen Saturation 93.3 % (94-97); ABG PCO2 45 mmHg (35-45); ABG PH 7.39 (7.35-7.45); ABG PO2 61 mmHg (83-108); ABG TCO2 29 mmol/L (19-24); Allen Test Performed? Yes
[2021-01-27 05:16] LABS: Albumin 2.5 g/dL (3.5-5.0); Calcium 8.8 mg/dL (8.4-10.2); Potassium 4.4 mmol/L (3.5-5.1); Total Bilirubin 1.4 mg/dL (0.2-1.3); Total Protein 5.3 g/dL (6.3-8.2)
[2021-01-27 05:35] LABS: C Reactive Protein 16.3 mg/dL (<1.0)
--- NOTE | 2021-01-27 06:36 | XR ---
EXAMINATION TYPE: XR chest 1V portable DATE OF EXAM: 01/27/2021 COMPARISON: 01/26/2021 HISTORY: Shortness of breath TECHNIQUE: Single frontal view of the chest is obtained. FINDINGS: There has been no change in the tracheostomy tube and left-sided central venous catheter. There is been no significant interval change in the diffuse partially consolidative infiltrates. There is no pneumothorax or large pleural effusion. IMPRESSION: No significant interval change in the bilateral infiltrates.
--- NOTE | 2021-01-27 08:05 | P.PN ---
Subjective Progress Note Date: 01/27/21 This is a 55-year-old male patient who is being seen in the intensive care unit for respiratory failure secondary to COVID-19 related pneumonia. The patient became symptomatic on 01/11/2021 and the patient's condition progressively got worse. The patient is a nonvaccinated individual. The patient is known to have previous history of pulmonary emboli with a left lower extremity DVT and he is also known to have various other comorbidities including osteoarthritis, cervical neck fusion, previous right shoulder surgery related to arthritis. The patient had a CT angiogram at time of admission that showed bilateral multifocal confluent groundglass pulmonary opacities right more than left in the lower lungs and it was suboptimal for pulmonary embolism. He was started on Decadron. He was supported by BiPAP for respiratory support during the course of his illness as the patient became progressively more hypoxic and his oxygen requirements progressively got worse. Ultimately, the patient was intubated and placed on mechanical ventilator. At this point in time, the patient is sedated with propofol and paralyzed with Nimbex. Propofol is running at 50 mcg/kg per minute and Nimbex @ mcg kilogram per minute. The patient is quite secretions of the mechanical ventilator. At this point in time is an assist-control mode at the rate of 30, tidal volume of 450, FiO2 of 50% with a PEEP of 15. The patient continues to show diffuse bilateral pulmonary infiltrates. Chest x-ray was noted. Blood gases was noted and the patient's pH currently is at 7.49 with a pCO2 of 42 and pO2 of 62. His chest x-ray showed bilateral pulmonary infiltrates system was COVID 19 related pneumonia. Note of any pneumothorax. ET tube is sitting at least 3 cm above the charity.. The patient was kept on Decadron and he was also started on Baricitinib per protocol. The d-dimer during the course of the hospitalization was as high as 12 in the based on that the patient was placed on IV heparin on an empiric basis. The inflammatory markers were elevated and LDH was as high as 2929 and the levels have been gradually improving. The CRP level remains elevated at 8.7 the patient has normal renal function the chest x-ray from today shows bilateral pulmonary infiltrates, ET tube is at least 3 cm above the charity and the patient also has a left subclavian triple-lumen catheter in place. In terms of inflammatory markers, his LDH level is down to 999, the patient continues to have mild transaminitis, CRP is at 13.5. White cell count is 7.4. Her net fluid balance over the past several days has been -2.1 and later on 2.3 L as such the patient has been in a negative fluid balance and he has lost at least 6 kg On today's evaluation of 01/22/2021, patient is being seen for a follow-up. The patient is post COVID 19 related pneumonia with respiratory failure and the patient has been on mechanical ventilator, sedated and paralyzed. This morning, the patient is on propofol which is running at 50 mcg/kg per minute and Nimbex is running at 3 mcg/kg per minute. Patient is also on fentanyl at 1 mcg/kg/h. He is quite synchronous with the mechanical ventilator. On today's evaluation, the patient is an assist-control mode with a tidal volume of 400 FiO2 of 40%, PEEP of 13 and the patient has a respiratory rate of 30. The blood gases from today showed a pH of 7.42 with a pCO2 of 50 and pO2 of 65. The peak airway pressure on the mechanical ventilator is 21 which is considerably lower compared to yesterday. The chest x-ray from today is showing diffuse bilateral pulmonary infiltrates consistent with COVID 19 related pneumonia. ET tube is in a good location. No major interval change compared to yesterday. Meanwhile, the patient is still on a combination of Decadron and Baricitinib per protocol. Inflammatory markers have been gradually improving. The patient is LDH level is down to 954 and his CRP level is down to 6.8. The patient is a white cell count of 9.1 with a hemoglobin of 11.6. The patient's has some mild transaminitis which remains unchanged and the LFTs remain slightly elevated. Triglyceride level was 173 from yesterday. No fever. Most recent d-dimer is at 1.23. He is receiving enteral feeding for nutritional support in the form of white cell 1.2 at the rate of 26 mL an hour. He continues to make excellent urine output patient remains in a negative fluid balance of 2.2 L since yesterday. 01/23/2021, patient is being seen for a follow-up. The patient remains intubated on a mechanical ventilator. The patient remains sedated and paralyzed. The patient is a case of COVID 19 related pneumonia with respiratory failure. He has been on a mechanical ventilator since 01/14/2021. This morning, the patient is on propofol running at 75 mcg/kg per minute and the patient is also on fentanyl at 2 mcg/kg/h and the patient is also Nimbex running at 3 mcg/kg per minute. The patient is quite suggestive mechanical ventilator as of yesterday. The patient remains on a mechanical ventilator on assist control mode with a tidal volume of 400 and FiO2 of 40% and a PEEP of 12 which was gradually reduced and a respiratory rate of 30. The blood gases from today shows a pH of 7.45 with a pCO2 of 44 and pO2 of 72. The chest x-ray findings are essentially stable without any interval change compared to yesterday. ET tube remains in a good location. The patient remains on a combination of Decadron and Baricitinib per protocol. Aspergillus was cultured in the sputum which is probably a colonizer. We are repeating the sputum sample for now. The patient is afebrile. No significant leukocytosis the white cell count at 8.3. The rest of the labs are all stable. Normal renal function. He does have abnormalities in his liver function tests and there is some limited rise in the AST and ALP compared to yesterday and the levels being at around 28 and 153 respectively. The LDH level from yesterday was down to 954. The most recent d- dimer was at 1.23. The patient is on Lovenox for DVT prophylaxis. IV heparin was been discontinued. The peak airway pressures 25. The static pressure is 22 on today's evaluation. 01/24/2021, THE PATIENT IS BEING SEEN FOR A FOLLOW-UP IN THE INTENSIVE CARE UNIT. NOTE THAT THE PATIENT HAS BEEN ON A MECHANICAL VENTILATOR FOR 10 DAYS AT LEAST. THE PATIENT WAS PLACED ON A MECHANICAL VENTILATOR ON 01/14/2021. He was sedated and paralyzed. Based on all this, I made recommendations to proceed with a PEG and trach and the family was agreeable. As such the procedures were done yesterday without any major difficulties. The patient is currently off Nimbex. He remains sedated patient is currently on propofol which is running at 55 mcg/kg per minute. This morning, the patient was taken off the paralytics. He open up his eyes. He is not following any commands.. Nevertheless, he is doing sports as eye-opening and his looking around and trying to do some motor activity while laying down in bed. He remains on a mechanical ventilator. For now, the patient has a #[address] In terms of his vent management, the patient remains on assist control mode at the rate of 30 with a tidal volume of 400 and FiO2 of 50% with a PEEP of 10. No significant orotracheal secretions. Nevertheless, the chest x-ray from today has shown some worsening in the bilateral pulmonary infiltrates more so in the lower lobes. Another concerning thing is that the patient has spiked a temperature and the T- max was 102 and the patient also has developed an acute leukocytosis with a white cell count of 17. Note that he was on a combination of Decadron and Baricitinib. The patient is also has cultures Aspergillus fumigatus in the sputum and the most recent sputum culture was positive for corynebacterium species. As such, infection is obviously a concern in this patient. Hemodynamically stable. Blood work from today shows a white cell count 17, hemoglobin is at 12.3 with a platelet count of 329. Blood gases from today showed a pH of 7.37 with a pCO2 of 50 and pO2 of 72. Sodium is at 1:30, BUN is at 21 with a creatinine of 0.8. LFTs are slightly abnormal with a ALT of 132, AST of 248 and these are essentially lower compared to yesterday's values. The LDH level is down to 954 from few days back. On today's chest x-ray, the tracheostomy tube is in a good location. Fluid balance over the past 24 hours has been in the order of -500 mL. He has been essentially developing a negative fluid balance as the patient is producing adequate amount of urine output over the past several days and this is without diuresis All 3 2020, the patient is being seen for a follow-up. 55-year-old male patient, post COVID 19 related pneumonia with respiratory failure, post PEG and tracheostomy tube insertion. The patient was doing some good progress yesterday. We managed to discontinue the paralytics. We managed also to wean off the sedation and he got to the point where he was fully alert and awake and was following commands. Nevertheless, as the day went on yesterday, the patient became progressively more asynchronous a mechanical ventilator, agitated, tachypneic, hypotensive. Repeat blood work was done. Repeat chest x-ray was done. Repeat blood gases was done. He was becoming obvious that the patient was developing a right lung pneumonia and the patient had worsening consolidation of the right lung and the patient was developing worsening bilateral pulmonary infiltrates. At that point, his antibiotic for further broaden. I had him currently on a combination of cefepime, Zyvox, and voriconazole. Note that his earlier sputum samples have cultures Aspergillus an d Rhino bacteria. He is fever broke and he is currently afebrile. In terms of his blood work, the patient's white cell count currently is at 8.3. He is off the Baricitinib. Pro-calcitonin level is pending for now. Meanwhile, the patient received a total of 2 L of IV fluids. He was started on pressors and norepinephrine infusion is currently running at 0.05 mcg/kg per minute. He is also sedated on propofol which is currently running at 75 g kilogram per minute and the patient is also on Precedex at 0.3 mcg/kg per minute. He is quite 6 is a mechanical ventilator at this point in time. He was started on enteral feeding for nutritional support through his PEG tube. In terms of his blood work, his LDH level is 1108 7 and his CRP level is 32. LFTs are being monitored and the patient is currently on voriconazole. LFTs remains stable with a ALT of 171, AST of 64 patient was started on enteral feeding for nutritional support. He is currently receiving vitamin A at the rate of 20 this is an hour. Urine output is adequate. As mentioned, he is afebrile. He is having respiratory secretions and going we are going to reculture the sputum sample. The patient is also on Decadron. Blood culture and urine culture were sent yesterday. He jumped up to 9.04 and the patient remains on Lovenox for DVT prophylaxis. She remains on a mechanical ventilator. This morning, he is an assist-control at the rate of 22 with a tidal volume of 400 and FiO2 of 40% with a PEEP of 12. The blood gases from today shows a pH of 7.34 with a pCO2 of 47 and pO2 of 64. Current pulse ox is around 96%. 01/26/2021, the patient is still sedated and paralyzed. As mentioned earlier, the patient is post tracheostomy tube insertion of PEG tube insertion for prolonge respiratory failure for COVID 19 related pneumonia. He was doing following this procedure and we got to a point where we took him off the paralytics and he was being weaned off the sedation. Nevertheless, he became acutely restless, asynchronous, febrile, hypotensive, and the same time the tracheostomy tube started leaking air due to leaks around the tracheostomy tube stoma. At that point, I had to 3 sedated back and currently is on accommodation propofol and Precedex. Propofol is running at 75 mcg/kg per minute and Precedex currently is at 0.3 mcg/kg per minute. The patient is also paralyzed with Nimbex. He is on a mechanical ventilator. At this point, there is an assist- control mode at the rate of 22 with a tidal volume of 450, PEEP currently is at 12 with an FiO2 of 100%. Chest x-ray still showing bilateral pulmonary infiltrates although there is some limited inferior improvement and infiltration on the left. The patient has a #8 Shiley tracheostomy tube which is high in the trachea and there is you've was very positional in terms of leaks and appropriate positioning was done with the flexion of the neck to reduce the amount of leak down to 25 mL in terms of the returned tidal volume. His current peak airway pressures 33. His pH is at 7.18 with a pCO2 of 65 and pO2 of 108 and accordingly to his FiO2 was dropped down to 80%. Hemodynamically stable. He is afebrile. White cell count is at 8. He is currently on a broad-spectrum antibiotic coverage using a combination of voriconazole, Zyvox and cefepime. He remains on Decadron. A repeat sputum sample was obtained and the urine cultures positive for gram-negative bacillus. Activity being utilized and the patient's enteral feeding for nutritional support. The plan for today is to gradually wean down the FiO2 and give the patient and paralytic holiday. Otherwise, is doing well. He remains on Decadron. Rest of medication was reviewed. Labs were reviewed. Chest x-ray was reviewed. White cell count is at 8 with a hemoglobin of 11.1. Inflammatory markers continue to be elevated. His LDH level is at 1156 and the CRP level is at 5.5. LFTs are still abnormal this being monitored very closely. His AST is at 184 and ALT is at 135 and a bilirubin currently is at 1.8. Calcium level is at 8.4. Serum albumin is at 2.6. 01/27/2021, the patient's condition has a more stabilized. Since yesterday, the patient was taken off paralytics and the patient is currently on propofol running at 75 mcg/kg per minute. He seems to be quite intense a mechanical ventilator. He is also arousable with stimulation. He does have some occa sional cough. No spontaneous eye opening. He is quite synchronous with the mechanical ventilator. I have him on VC plus mode at the rate of 22 with a tidal volume of 450 and PEEP of 12 and FiO2 is currently down to 60%. Chest x- ray shows bilateral pulmonary infiltrates, slightly improved compared to yesterday. He was having significant amount of air leak around his tracheostomy tube and we were able to manage that with some had manipulation and positioning of the tracheostomy tube. The patient has a #[address] On today's evaluation, the leaks are minimal. His peak airway pressures around 33. 70 pressures around 30. The patient had a blood gas today that s howed a pH of 7.39 with a pCO2 of 45 and a pO2 of 61 and this was on FiO2 of 60%. The sputum sample is positive for Aspergillus and charity bacterium and the patient remains on a broad-spectrum antibiotics including Zyvox, voriconazole, and IV cefepime. His urine culture also turner and former automatic to be positive for E. coli. Meanwhile, the patient is hemodynamically stable. I'm a bit concerned about his kidney function. Creatinine today was up to 1.28 and the patient is producing adequate amount of urine output in the order of 50-60 mL an hour. In terms of his inflammatory markers, the patient has a d-dimer of 5.45 and LDH is 1073, improved compared to yesterday and his CRP level is down to 16.3. Meanwhile, he is still being treated with Decadron at a dose of 60 mg IV every 24 hours. He was taken off the Baricitinib several days ago. He remains on Lovenox for DVT prophylaxis at a dose of 40 mg subcu every 24 hours. He remains on Levemir insulin 10 units a day in addition to NovoLog sliding scale coverage. No other significant events overnight. He did have a bout of hyperkalemia and the potassium level was as high as 6.2 and this was managed appropriately and the potassium level is improved. Hemodynamically stable. No pressors. Liver function tests have been abnormal yet stable. The patient has not produced any bowel movement activity at. The patient was started on lactulose. Objective - Vital Signs Vital signs: Vital Signs Temp 98.5 F 01/26/21 08:00 Pulse 77 01/27/21 07:00 Resp 36 H 01/27/21 07:00 BP 108/63 01/27/21 05:00 Pulse Ox 94 L 01/27/21 07:00 Intake & Output 01/26/21 01/27/21 01/27/21 18:59 06:59 18:59 Intake Total 1820.775 906.733 39 Output Total 865 780 50 Balance 955.775 126.733 -11 Intake: IV 364 312 26 Pressure Bags 84 72 6 Sodium Chloride 0.9% 1, 280 240 20 000 ml @ 20 mls/hr IV . Q24H [facility] Rx#:[id number] Intake, IV Titration 1032.775 288.733 Amount Cefepime 2 gm In Sodium 100 Chloride 0.9% 100 ml @ 25 mls/hr IVPB Q8HR [facility] Rx# :[id number] Cisatracurium 200 mg In 80.3 Sodium Chloride 0.9% 180 ml @ 1 MCG/KG/MIN 6.6 mls /hr IV .Q24H [facility] Rx#: [id number] Dexmedetomidine/0.9% NaCl 4.66 (Pmx) 400 mcg In Empty Bag 1 bag @ 0.2 MCG/KG/HR 5.135 mls/hr IV .[id number] [facility] Rx#:[id number] Linezolid 600 mg In 300 Dextrose/Water 1 300ml. bag @ 150 mls/hr IVPB Q12H [facility] Rx#:[id number] Norepinephrine 4 mg In 14.869 Sodium Chloride 0.9% 250 ml @ 0.05 MCG/KG/MIN 19. 564 mls/hr IV .[id number] [facility] Rx#:[id number] Voriconazole 200 mg In 100 Sodium Chloride 0.9% 100 ml @ 125 mls/hr IVPB Q12HR [facility] Rx#:[id number] propofoL 1,000 mg In 432.946 288.733 Empty Bag 1 bag @ Titrate IV .Q0M [facility] Rx#: [id number] Tube Feeding 144 156 13 Other 280 150 Output: Urine 865 780 50 Other: Voiding Method Indwelling Catheter Indwelling Catheter ABP, PAP, CO, CI - Last Documented Arterial Blood Pressure 118/59 - Exam Gen. appearance -No acute distress, sedated and not paralyzed , and the patient has a tracheostomy tube and #[address] tube in place. He seems to be opening his eyes spontaneously and moving. . He still sedated. She remains off paralytics for now. HEENT examination is grossly unremarkable. Neck supple. Full range of motion. No adenopathy thyromegaly or neck vein distention. Cardiac exam revealed the PMI to be normally situated and sized. The rhythm was regular and no extrasystoles were noted during several minutes of auscultation. The first and second heart sounds were normal and physiologic splitting of the second heart sound was noted. There were no murmurs, rubs, clicks, or gallops. Lungs reveal diffuse bilateral coarse rhonchi. Diffuse bilateral crackles. Breath sounds equal bilaterally. Breath sounds are unchanged. Abdominal exam revealed normal bowel sounds. The abdomen was soft, non-tender, and without masses, organomegaly, or appreciable enlargement of the abdominal aorta. The PEG tube is in a good location and there is no abdominal distention. No bleeding around the PEG tube site. Extremities are intact. No cyanosis clubbing or edema. Examination of the skin revealed no evidence of significant rashes, suspicious appearing nevi or other concerning lesions.. Neurologic examination , sedated and off paralyzed for now - Labs CBC & Chem 7: 01/27/21 04:15 01/27/21 04:15 Labs: Abnormal Lab Results - Last 24 Hours (Table) 01/26/21 01/26/21 01/26/21 Range/Units 10:00 11:41 17:54 RBC (4.30-5.90) m/uL Hgb (13.0-17.5) gm/dL Hct (39.0-53.0) % Neutrophils # (1.3-7.7) k/uL Lymphocytes # (1.0-4.8) k/uL D-Dimer (<0.60) mg/L FEU ABG pO2 (83-108) mmHg ABG HCO3 (21-25) mmol/L ABG Total CO2 (19-24) mmol/L ABG O2 Saturation (94-97) % Sodium (137-145) mmol/L Potassium 6.2 H* (3.5-5.1) mmol/L BUN (9-20) mg/dL Creatinine (0.66-1.25) mg/dL Glucose (74-99) mg/dL POC Glucose (mg/dL) 183 H 201 H (75-99) mg/dL Total Bilirubin (0.2-1.3) mg/dL AST (17-59) U/L ALT (4-49) U/L Alkaline Phosphatase (38-126) U/L Lactate Dehydrogenase (313-618) U/L C-Reactive Protein (<1.0) mg/dL Total Protein (6.3-8.2) g/dL Albumin (3.5-5.0) g/dL 01/26/21 01/27/21 01/27/21 Range/Units 23:32 04:15 04:15 RBC 3.36 L (4.30-5.90) m/uL Hgb 10.7 L (13.0-17.5) gm/dL Hct 31.9 L (39.0-53.0) % Neutrophils # 8.6 H (1.3-7.7) k/uL Lymphocytes # 0.6 L (1.0-4.8) k/uL D-Dimer 5.45 H (<0.60) mg/L FEU ABG pO2 (83-108) mmHg ABG HCO3 (21-25) mmol/L ABG Total CO2 (19-24) mmol/L ABG O2 Saturation (94-97) % Sodium (137-145) mmol/L Potassium (3.5-5.1) mmol/L BUN (9-20) mg/dL Creatinine (0.66-1.25) mg/dL Glucose (74-99) mg/dL POC Glucose (mg/dL) 171 H (75-99) mg/dL Total Bilirubin (0.2-1.3) mg/dL AST (17-59) U/L ALT (4-49) U/L Alkaline Phosphatase (38-126) U/L Lactate Dehydrogenase (313-618) U/L C-Reactive Protein (<1.0) mg/dL Total Protein (6.3-8.2) g/dL Albumin (3.5-5.0) g/dL 01/27/21 01/27/21 Range/Units 04:15 05:04 RBC (4.30-5.90) m/uL Hgb (13.0-17.5) gm/dL Hct (39.0-53.0) % Neutrophils # (1.3-7.7) k/uL Lymphocytes # (1.0-4.8) k/uL D-Dimer (<0.60) mg/L FEU ABG pO2 61 L (83-108) mmHg ABG HCO3 27 H (21-25) mmol/L ABG Total CO2 29 H (19-24) mmol/L ABG O2 Saturation 93.3 L (94-97) % Sodium 135 L (137-145) mmol/L Potassium (3.5-5.1) mmol/L BUN 37 H (9-20) mg/dL Creatinine 1.28 H (0.66-1.25) mg/dL Glucose 162 H (74-99) mg/dL POC Glucose (mg/dL) (75-99) mg/dL Total Bilirubin 1.4 H (0.2-1.3) mg/dL AST 153 H (17-59) U/L ALT 282 H (4-49) U/L Alkaline Phosphatase 138 H (38-126) U/L Lactate Dehydrogenase 1073 H (313-618) U/L C-Reactive Protein 16.3 H (<1.0) mg/dL Total Protein 5.3 L (6.3-8.2) g/dL Albumin 2.5 L (3.5-5.0) g/dL Microbiology - Last 24 Hours (Table) 01/25/21 11:50 Gram Stain - Preliminary Sputum Sputum Culture - Preliminary 01/24/21 10:22 Blood Culture - Preliminary Blood No Growth after 48 hours 01/24/21 09:55 Urine Culture - Final Urine,Catheterized Escherichia coli Assessment and Plan Plan: 1 Acute hypoxemic respiratory failure secondary to coronavirus associated pneumonia, with intubation and mechanical ventilation, initiated on January 14, for worsening hypoxemia. Noted the patient was initially on nasal cannula oxygen supplementation and following that the patient required BiPAP and ultimately the patient to be intubated on 01/14/2021 for respiratory failure secondary to COVID-19 related to pneumonia. Patient is currently on a combination of Decadron and Baricitinib per protocol. The patient is post tracheostomy tube insertion and suggested was inserted on 01/23/2021. Meanwhile the patient has developed superinfection. This could be potentially hospital- acquired with a ventilator associated pneumonia. Repeat cultures are pending. The current cultures are showing Aspergillus and corynobacterium. The patient had worsening infiltration bilaterally. He was covered with broad-spectrum antibiotics. The pro calcitonin level came back at 0.9. The patient is currently on a combination of Zyvox, cefepime and voriconazole. He is off the B aricitinib for now. Doing essentially stable for now. He was having some leaking around the tracheostomy stoma and the leak was managed by some had positioning. The leak is in order of 25-50 mL with each tidal volume. The catheter pressures are measured. Is still elevated. FIO 60%% with a PEEP of 12. I would suggest getting the same treatment. No ventilator changes for today. Repeat a sputum Gram stain and culture to make sure there is no new microorganism growing. His chest x-ray on today's evaluation is slightly improved although the patient continues to have bilateral pulmonary infiltrates. The air leak around the tracheostomy tube is also improving with positional adjustments in the leak is minimal at this point in time. 2 Acute respiratory distress syndrome (ARDS), secondary to coronavirus associated pneumonia. 3 Previous history of bilateral pulmonary emboli, and left leg DVT, 2016, currently on Lovenox. 4 History of osteoarthritis. 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 Acute sepsis with hypotension probably related to respiratory infection/pneumonia, consider a ventilator associated pneumonia. The patient is currently off Baricitinib and the patient on broad-spectrum antibiotics as mentioned the patient is on low-dose norepinephrine infusion. The patient was given a total of 2 L of IV fluids.THE PATIENT IS CURRENTLY OFF PRESSORS. THE PATIENT IS NORMOTENSIVE. 8 fever 9 ITZEL and cr is 1.28, adequate UO Plan: Continue ventilator support. The patient is a tracheostomy tube in place . He is on VC plus mode and keep the tidal volume of 450, dropped a respiratory rate down to 22, inspiratory time is at 0.8 seconds and keep the FiO2 of 60% with a PEEP of 12. We'll monitor the blood gases. Tracheostomy tube is in a good location. Air leak is positional and a chest x-ray is showing some limited improvement in the bilateral pulmonary infiltration. The patient is currently off pressors Pro calcitonin level is to be repeated Continue cefepime, Zyvox and voriconazole as broad-spectrum antibiotic coverage for now. Repeat sputum sample and cultures. Blood cultures were also sent.. The patient remains on Decadron. Baricitinib has been discontinued. monitor LFTs Monitor fever pattern Monitor white count, currently @ 9.8 Stop the Baricitinib and continue the Decadron for now Enteral feeding will be started 24 hours after insertion of the PEG Lovenox 40 mg SC prophylaxis We'll continue to follow make further recommendations based on his progress. Condition remains critical. The has been updated on his condition. I had a lengthy discussion with her. This evaluation was done and more than 30 minutes. Time with Patient: Greater than 30 Time with Patient: Greater than 30
[2021-01-27] MEDS: CHLORHEXIDINE GLUCONATE 15 ML CUP MUCOUS MEM SCH ×2 (08:39→21:11)
[2021-01-27] MEDS: CHOLECALCIFEROL 25 MCG (1000 IU) TABLET PO SCH (08:39)
[2021-01-27] MEDS: ZINC SULFATE 220 MG CAP PO SCH (08:39)
[2021-01-27] MEDS: LACTULOSE 20 GM/30 ML CUP PO SCH (08:40)
[2021-01-27] MEDS: DEXAMETHASONE SOD PHOSPHATE 10 MG/ML 1 ML VIAL IVP SCH (08:40)
[2021-01-27] MEDS: ENOXAPARIN 40 MG/0.4 ML SYRINGE SQ SCH (08:40)
[2021-01-27] MEDS: ASCORBIC ACID 500 MG TAB PO SCH (08:40)
[2021-01-27] MEDS: PANTOPRAZOLE 40 MG/10 ML VIAL IVP SCH (08:40)
[2021-01-27] MEDS: VORICONAZOLE 200 MG in SODIUM CHLORIDE 0.9% 100 ML IVPB SCH ×2 (09:48→22:03)
[2021-01-27] MEDS: LINEZOLID 600 MG in DEXTROSE/WATER 1 300ML.BAG IVPB SCH ×2 (10:33→23:38)
[2021-01-27] MEDS: HYDROmorphone 1 MG/ML 1 ML SYRINGE IVP PRN ×2 (11:29→16:27)
[2021-01-27] MEDS: ACETAMINOPHEN TAB 325 MG TAB PO PRN (11:30)
[2021-01-27 12:13] LABS: ABG Base Excess 0.9 mmol/L; ABG HCO3 26 mmol/L (21-25); ABG Oxygen Saturation 97.1 % (94-97); ABG PCO2 47 mmHg (35-45); ABG PH 7.36 (7.35-7.45); ABG PO2 88 mmHg (83-108); ABG TCO2 28 mmol/L (19-24); Allen Test Performed? Yes
[2021-01-27 12:18] LABS: Glucose,Whole Blood 168 mg/dL (75-99)
[2021-01-27] MEDS: fentaNYL (PF). 1,000 MCG in SODIUM CHLORIDE 0.9% 80 ML IV SCH (14:18)
--- NOTE | 2021-01-27 14:22 | P.PN ---
Subjective Progress Note Date: 01/27/21 HISTORY OF PRESENT ILLNESS This is a 55-year-old male patient of Dr. 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 Patient states he has not been feeling well since Thursday. He said shortness of breath cough is nonproductive along with fever and chills, exertional dyspnea. He denies having any nausea vomiting or diarrhea. He denies any close contacts to known Covid people. He states his temperature is been up to 102.7 at home. He is not vaccinated. Patient presented to [facility] emergency center and found to be febrile at 101.1, heart rate 90, blood pressure 122/80, pulse ox 85% on room air. CBC revealed platelet count of 128. D-dimer 0.82. Sodium 131 otherwise electrolytes and renal function were normal. Blood sugar 147. Troponin negative. Coronavirus PCR positive. Chest x-ray reveals patchy bilateral airspace disease especially in the mid and lower lungs. Correlate for multifocal pneumonia including Covid 19 pneumonia. CTA of the chest was suboptimal study without central acute pulmonary embolism. Bilateral multifocal and confluent groundglass opacities right greater than left and greater in the lower lungs consistent with known Covid 19 infection. Patient is seen today in the emergency center waiting for bed on the [facility] floor, started on Remdesivir, Lovenox, dexamethasone and vitamin supplements, consult with pulmonary medicine. 01/12: Patient is comfortable, however he requires 40 L of oxygen via airvo sats 88-89%, he feels better today compared to his nonrebreather mask yesterday, patient did not sleep well, patient does not have any cough, however he does have shortness of breath. Patient denies any aspiration, appetite is still marginal, patient has insomnia vitals, blood sugar currently is 243, creatinine of 0.98, d-dimer is 0.84, CRP is elevated, LDH is elevated, venous Doppler, shows chronic DVT, left popliteal, in the posterior tibial veins, without any obstruction of flow. No acute DVT identified CTA, shows suboptimal, without central acute pulmonary emboli, has bilateral multifocal and confluent groundglass opacities, right greater than left, lower lobe, consistent with COVID-19 infection and remdesivir discontinued by pulmonary today and is outside of the window for remdesivir 01/13: Patient is on aerosol 14 L, with nonrebreather mask, 15 L, hypoxemia n oted on 88%, worse with coughing, however his nonrebreather mask is very loose. Nurse is worriedwith the turn of events, and requested an ICU transfer, Dr. Canales has seen the patient, and is stable for floor management at this time, patient is not significant tachypnea, and is not tiring out. There is no hemoptysis, and mucus is productive, patient's doing incentive spirometry, up 2 L. 01/14: Patient remains in the intensive care unit, he was intubated this morning as he was desaturating with BiPAP. He has been afebrile, heart rate 73, blood pressure 93/47, pulse ox 90%. CBC is unremarkable. D-dimer 12.04. Sodium 135, creatinine 0.82. LDH 2929, C-reactive protein 5.2. Sputum culture is in progress. He has had good urine output. Chest x-ray reveals no evident convocation from catheters. Bilateral airspace disease. 01/15: Patient remains in the intensive care intubated and on mechanical ventilation with tidal volume 450, FiO2 80, PEEP of 15. Patient has been started on norepinephrine and remains on propofol, heparin drip, Nimbex. Repeat blood work revealed unremarkable CBC. Creatinine 0.88. Capillary blood glucose running between 195 and 215. AST 126, ALT 183, alkaline phosphatase 109. Sputum culture is in progress. Repeat chest x-ray reveals correlate for pneumonia versus edema, ARDS. Patient is continued on vitamin supplements, heparin drip, dexamethasone and Baricitinib. patient remains in intensive care intubated on mechanical ventilator at FiO2 60 percent PEEP respiratory rate of 30 tidal volume 450. Continues to maintain saturations between 94-95% on the current settings. Vitals otherwise stable labs reviewed today WBC is 9.5 hemoglobin 12.4 d-dimer is elevated at 4.98. ABG obtained today suggest pH of 7.4 pO2 53 bicarb 26 on 50% FiO2. Creatinine stable at 0.78 glucose is maintained between 145-190. LDH 1564 CRP is elevated at 4. Patient's inflammatory markers trending down. Patient's vent settings increased to 80% for inadequate oxygenation. Chest x-ray reviewed showed bilateral infiltrate consistent with coronavirus associated pneumonia. Patient continues intubated on propofol 70 bike but patient examined Nimbex 1.25 g daily per minute. Patient to receive 1 dose of Lasix today. Continue to remain on baricitinib day 2 PAtient remains intubaated since . patient continues too remain on assist control, TV 450 , peep 15 and fio2 of 60 %. patient was proned for 16 hours yesterday. CXR was reviewed, COVID pneumonia but no significant change was noted, Will repeat inflammatory markers tomorrow. Vent managment per teacher dancing. Patient contines to remain propofol , nimbex. Continue on lovenox, baricitinib, dexamethasone and vit supplement 01/18 patient continues to remain intubated. Covid pneumonia. Is currently on assist control respiratory rate of 30 tidal volume 450 FiO2 of 55% and PEEP of 15. She is currently on heparin drip, propofol and Nimbex. Patient continues to tolerate prone positioning 16 hours overnight. Continues to receive dexamethasone, vitamin supplement, anticoagulation with heparin, baricitinib. Labs are reviewed patient has a hemoglobin stable at 12.2. This morning pH 7.48 PCO2 44 bicarb 32 creatinine 0.73 AST 100 chest x-ray done this morning suggestive of ARDS and pneumonia 01/19 patient continues to remain intubated currently on assist-control vent with a rate of 30 tidal volume 450 FiO2 50 and PEEP of 15. Continues to remain on propofol and Nimbex. Continue heparin drip for anticoagulation. Remains on Baricitinib , vitamin supplementation and dexamethasone. Labs reviewed hemoglobin stable at 12 PTT 53 blood gas obtained today suggest a pH of 7.45 pCO2 46 pO2 69 bicarb 32 BUN 23 creatinine 0.0.8 glucose 122 AST ED ALT 226. inflammation markers ordered for tomorrow last set was obtained on 01/12 01/20 Intubated. Vitals reviewed patient's afebrile pulse of 68 respiratory rate 30 blood pressure. 94/56 oxygen 91% on 50% FiO2. Patient remains on assist control, tidal volume 450 respiratory rate 30 FiO2 of 50% and PEEP of 15. He is currently on Pneumovax at 3 mics per KG per minute propofol at 50 Micro-K to Coumadin and heparin drip. Patient labs are reviewed hemoglobin is 11.7. Arterial blood gas at 50% FiO2 has a pH of 7.47 pO2 of 77 bicarb of 31 BUN 24 creatinine 0.7 LDH [id number] CRP 8.70. CRP is slightly elevated with improvement in LDH. Continue to monitor patient with the goal with treatment on heparin, as dexamethasone, vitamin supplementation and Baricitinib . Blood sugar are well controlled. 01/21: Patient remains intubated and on mechanical ventilation with tidal volume 400, FiO2 40 and PEEP of 16. Patient is on propofol and fentanyl drips. He is on tube feedings to be increased to 26 ML's per hour and tolerating. She he has had 100 250 ML's of urine output per hour. He has been afebrile, heart rate 70, respiratory rate 30, blood pressure 115/64, pulse ox 93%. Repeat blood work reveals WBC 7.4, hemoglobin 12, platelet count 310. D-dimer 1.23. Sodium 134, BUN 24 and creatinine 0.73. Blood sugars are running between 101 and 164. AST 105, ALT 261, alkaline phosphatase 135. LDH 999. C-reactive protein 13.5. Albumin 2.9. Gallbladder ultrasound reveals nonspecific pattern of liver can be seen with hepatic steatitis or hepatocellular disease including hepatitis. The chest x-ray reveals bilateral patchy airspace disease stable. 01/22: Remains in the intensive care unit intubated and on mechanical ventilation with tidal volume 400, FiO2 40, PEEP of 13. Paralytics for pause this morning and patient had significant drop in his pulse ox. He is currently on propofol, fentanyl and Nimbex. He has been afebrile, heart rate 73, blood pressure 99/63, pulse ox 90%. Repeat blood work reveals hemoglobin 11.6. Creatinine 0.81. Blood sugars are running between 98 and 155. AST 85, ALT 260, alkaline phosphatase 132. LDH 954, C-reactive protein 6.8. Repeat chest x-ray reveals bilateral patchy diffuse airspace disease stable. Patient is continued on Baricitinib, Lovenox 40 mg subcu daily, dexamethasone 6 mg IV push and vitamin supplements 01/23: Remains in the intensive care unit on mechanical ventilation with tidal volume 400, FiO2 40 and PEEP of 10. Patient is scheduled for trach and PEG tube placement today. He is currently on propofol, fentanyl and Nimbex. Patient remains afebrile, heart rate 69, respiratory rate 30, blood pressure 120/76, pulse ox 93%. Repeat blood work reveals creatinine is 0.71. WBC 8.3, hemoglobin 12.9. AST 111, ALT 328, alkaline phosphatase 153. Blood sugars have been running between 92 and 193. Sputum culture is showing Corynebacterium species from 01/21 and Aspergillus from 01/14. Repeat chest x-ray reveals bilateral patchy diffuse airspace disease stable. Patient is continued on Baricitinib, Lovenox 40 mg subcu daily, dexamethasone 6 mg IV push and vitamin supplements 01/24: Patient is status post trach and PEG tube done yesterday by Dr. Olivares. Patient is off Nimbex and he has his eyes open but not following commands. Patient's is planning to come in today to see him. He remains on ventilator with tidal volume 300, FiO2 50 and PEEP of 10. Repeat chest x-ray reveals diffuse bilateral infiltrate stable. Antibiotics have been changed to ce fepime and patient started on IV Voriconazole. Patient is continued on dexamethasone, Lovenox and vitamin supplements. WBC 17.2, hemoglobin 12.3. Sodium 130, BUN 21 creatinine 0.83. Total bilirubin 2, AST 54, ALT 248, alkaline phosphatase 132. Capillary blood glucose running between 80 and 193. 01/25: Patient remains in the intensive care unit on mechanical ventilation with tidal volume 400, FiO2 is been increased to 100 and PEEP of 12. Patient is currently on propofol, and was started on vasopressors yesterday and is status post 2 L of IV fluid. Temperature max 101.3. Pulse 87, respiratory rate 33, blood pressure 120/57, pulse ox 95%. monitor car operator is a sinus rhythm. Repeat blood work reveals WBC 8.3, hemoglobin 11. Sodium 136, chloride 108. Creatinine is 0.83. Calcium 7.9. Total bilirubin 2.7, AST 64, ALT 171, alkaline phosphatase 127. LDH 1187. C-reactive protein 32.6. Blood sugars are running between 133 and 173. Urine culture is showing gram-negative bacilli. Blood culture from 01/24 showing no growth at 24 hours. Repeat chest x-ray reveals clear to megaly with bilateral confluent mid to lower lung opacities consistent with: 19 infection redemonstrated. No significant change. Patient is currently on cefepime, Zyvox and there, so for worsening bilateral pulmonary infiltrate, pneumonia. 01/26: Patient remains in intensive care unit on mechanical ventilation with tidal volume 450, FiO2 80 and PEEP of 12. He has been afebrile for greater than 24 hours. Heart rate 80, blood pressure 132/70, pulse ox 86%. He does have leaking around the tracheostomy site. Repeat blood work reveals WBC 8, hemoglobin 11.1, platelet count 291. Sodium 135, potassium 5.8, creatinine 1.15. Total bilirubin 1.8, AST 101, ALT 194, alkaline phosphatase 135. LDH 1156. C-reactive protein 35.7. Blood sugars are running between 154 and 183. Patient will be started on Levemir 10 units at bedtime. He is continued on cef epime, Zyvox and voriconazole. 01/27: Patient remains intubated and on mechanical ventilation with tidal volume 400 50, FiO2 60, PEEP of 12. Plan is to try and wean oxygen down today. Tracheostomy tube has been manipulated and repositioned. He is not requiring vasopressors, currently on propofol. Chest x-ray reveals no significant interval change. Patient has had good urine output with BUN of 37 creatinine 1.28. Other lab work reveals WBC 9.8, hemoglobin 10.7. D-dimer 5.45. Total bilirubin 1.4, AST 153, ALT 282, alkaline phosphatase 138, LDH 1073. C-reactive protein 16.3. ProCalcitonin 10.1. REVIEW OF SYSTEMS. Unable to obtain due to mechanical ventilation PHYSICAL EXAMINATION Gen: This is a 55-year-old male. He is resting in ICU bed, on mechanical ventilation status post trach and PEG, appears to be comfortable. Full examination deferred to the intensive due to mechanical ventilation and Covid 19. ASSESSMENT AND PLAN 1. Acute hypoxic respiratory failure secondary to Covid 19 pneumonia and possible secondary pneumonia, gram-negative and fungal. Patient required intubation 01/14. Patient is status post trach and PEG tube placement 01/[address] Olivares. Patient started on Remdesivir was discontinued by pulmonary, on January 12/2021 started on baricinib 4 mg daily, Baricitinib discontinued on 01/24. Continue cefepime, dexamethasone, Lovenox, Zyvox, voriconazole, continue ventilatory management per teacher dancing. 2. Acute respiratory distress syndrome secondary to coronavirus pneumonia. 3. Acute septic shock requiring vasopressors. Patient is status post IV fluid bolus and off vasopressors. 4. History of bilateral pulmonary emboli and DVT in 2015. CTA negative for PE. Not on chronic anticoagulation. 5. Acute transaminitis secondary to Covid 19. 6. Generalized osteoarthritis. 7. Degenerative changes in the cervical spine status post fusion of C5-6. 8. 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 9. Elevated liver function tests, transaminitis. 10. Hyperglycemia secondary to steroids. Patient is on NovoLog scale, Levemir 10 units at bedtime added. 11. Severe hyperkalemia status post IV push calcium gluconate, dextrose and regular insulin, IV push sodium bicarb. 12. GI prophylaxis. Protonix. 13. DVT prophylaxis. Lovenox. DISCHARGE PLAN Home. vs IP rehab . will expect to stay here for covid protracted length of time Impression and plan of care have been directed as dictated by the signing physician. Shakila Mosqueda nurse practitioner acting as scribe for signing physician. Objective - Vital Signs Vital signs: Vital Signs Temp 100.2 F H 01/27/21 09:00 Pulse 82 01/27/21 10:00 Resp 6 L 01/27/21 10:00 BP 105/66 01/27/21 10:00 Pulse Ox 93 L 01/27/21 10:00 Intake & Output 01/26/21 01/27/21 01/27/21 18:59 06:59 18:59 Intake Total 1820.775 906.733 604.460 Output Total 865 780 435 Balance 955.775 126.733 169.460 Intake: IV 364 312 104 Pressure Bags 84 72 24 Sodium Chloride 0.9% 1, 280 240 80 000 ml @ 20 mls/hr IV . Q24H BRADY Rx#:[id number] Intake, IV Titration 1032.775 288.733 288.460 Amount Cefepime 2 gm In Sodium 100 100 Chloride 0.9% 100 ml @ 25 mls/hr IVPB Q8HR BRADY Rx# :[id number] Cisatracurium 200 mg In 80.3 Sodium Chloride 0.9% 180 ml @ 1 MCG/KG/MIN 6.6 mls /hr IV .Q24H [facility]ADY Rx#: [id number] Dexmedetomidine/0.9% NaCl 4.66 (Pmx) 400 mcg In Empty Bag 1 bag @ 0.2 MCG/KG/HR 5.135 mls/hr IV .[id number] BRADY Rx#:[id number] Linezolid 600 mg In 300 Dextrose/Water 1 300ml. bag @ 150 mls/hr IVPB Q12H [facility]ADY Rx#:[id number] Norepinephrine 4 mg In 14.869 Sodium Chloride 0.9% 250 ml @ 0.05 MCG/KG/MIN 19. 564 mls/hr IV .[id number] [facility]ADY Rx#:[id number] Voriconazole 200 mg In 100 Sodium Chloride 0.9% 100 ml @ 125 mls/hr IVPB Q12HR [facility]ADY Rx#:[id number] propofoL 1,000 mg In 432.946 288.733 188.460 Empty Bag 1 bag @ Titrate IV .Q0M BRADY Rx#: [id number] Tube Feeding 144 156 52 Other 280 150 160 Output: Urine 865 780 435 Other: Voiding Method Indwelling Catheter Indwelling Catheter Indwelling Catheter ABP, PAP, CO, CI - Last Documented Arterial Blood Pressure 142/60 - Labs CBC & Chem 7: 01/27/21 04:15 01/27/21 04:15 Labs: Abnormal Lab Results - Last 24 Hours (Table) 01/26/21 01/26/21 01/26/21 Range/Units 11:41 17:54 23:32 RBC (4.30-5.90) m/uL Hgb (13.0-17.5) gm/dL Hct (39.0-53.0) % Neutrophils # (1.3-7.7) k/uL Lymphocytes # (1.0-4.8) k/uL D-Dimer (<0.60) mg/L FEU ABG pO2 (83-108) mmHg ABG HCO3 (21-25) mmol/L ABG Total CO2 (19-24) mmol/L ABG O2 Saturation (94-97) % Sodium (137-145) mmol/L BUN (9-20) mg/dL Creatinine (0.66-1.25) mg/dL Glucose (74-99) mg/dL POC Glucose (mg/dL) 183 H 201 H 171 H (75-99) mg/dL Total Bilirubin (0.2-1.3) mg/dL AST (17-59) U/L ALT (4-49) U/L Alkaline Phosphatase (38-126) U/L Lactate Dehydrogenase (313-618) U/L C-Reactive Protein (<1.0) mg/dL Total Protein (6.3-8.2) g/dL Albumin (3.5-5.0) g/dL 01/27/21 01/27/21 01/27/21 Range/Units 04:15 04:15 04:15 RBC 3.36 L (4.30-5.90) m/uL Hgb 10.7 L (13.0-17.5) gm/dL Hct 31.9 L (39.0-53.0) % Neutrophils # 8.6 H (1.3-7.7) k/uL Lymphocytes # 0.6 L (1.0-4.8) k/uL D-Dimer 5.45 H (<0.60) mg/L FEU ABG pO2 (83-108) mmHg ABG HCO3 (21-25) mmol/L ABG Total CO2 (19-24) mmol/L ABG O2 Saturation (94-97) % Sodium 135 L (137-145) mmol/L BUN 37 H (9-20) mg/dL Creatinine 1.28 H (0.66-1.25) mg/dL Glucose 162 H (74-99) mg/dL POC Glucose (mg/dL) (75-99) mg/dL Total Bilirubin 1.4 H (0.2-1.3) mg/dL AST 153 H (17-59) U/L ALT 282 H (4-49) U/L Alkaline Phosphatase 138 H (38-126) U/L Lactate Dehydrogenase 1073 H (313-618) U/L C-Reactive Protein 16.3 H (<1.0) mg/dL Total Protein 5.3 L (6.3-8.2) g/dL Albumin 2.5 L (3.5-5.0) g/dL 01/27/21 Range/Units 05:04 RBC (4.30-5.90) m/uL Hgb (13.0-17.5) gm/dL Hct (39.0-53.0) % Neutrophils # (1.3-7.7) k/uL Lymphocytes # (1.0-4.8) k/uL D-Dimer (<0.60) mg/L FEU ABG pO2 61 L (83-108) mmHg ABG HCO3 27 H (21-25) mmol/L ABG Total CO2 29 H (19-24) mmol/L ABG O2 Saturation 93.3 L (94-97) % Sodium (137-145) mmol/L BUN (9-20) mg/dL Creatinine (0.66-1.25) mg/dL Glucose (74-99) mg/dL POC Glucose (mg/dL) (75-99) mg/dL Total Bilirubin (0.2-1.3) mg/dL AST (17-59) U/L ALT (4-49) U/L Alkaline Phosphatase (38-126) U/L Lactate Dehydrogenase (313-618) U/L C-Reactive Protein (<1.0) mg/dL Total Protein (6.3-8.2) g/dL Albumin (3.5-5.0) g/dL Microbiology - Last 24 Hours (Table) 01/25/21 11:50 Gram Stain - Preliminary Sputum Sputum Culture - Preliminary 01/24/21 10:22 Blood Culture - Preliminary Blood No Growth after 48 hours 01/24/21 09:55 Urine Culture - Final Urine,Catheterized Escherichia coli
[2021-01-27] MEDS: SODIUM CHLORIDE 0.9% 1,000 ML IV SCH (15:24)
[2021-01-27 18:03] LABS: Glucose,Whole Blood 186 mg/dL (75-99)
[2021-01-27] MEDS: INSULIN DETEMIR (LEVEMIR) 100 UNIT/ML SYR SQ SCH (21:11)
[2021-01-27 23:33] LABS: Glucose,Whole Blood 203 mg/dL (75-99)
[2021-01-28] MEDS: CEFEPIME 2 GM in SODIUM CHLORIDE 0.9% 100 ML IVPB SCH ×4 (01:08→23:21)
[2021-01-28] MEDS: INSULIN ASPART (NovoLOG) 100 UNIT/ML VIAL SQ SCH ×4 (01:10→18:16)
[2021-01-28] MEDS: ARTIFICIAL TEARS-HYPROMELLOSE DROPS 15 ML BTL BOTH EYES SCH ×7 (01:10→23:21)
[2021-01-28 05:15] LABS: Basophils % (A) 0 %; Eosinophils # (A) 0.1 k/uL (0-0.7); Eosinophils % (A) 1 %; HCT 30.9 % (39.0-53.0); HGB 10.5 gm/dL (13.0-17.5); Lymphocytes # (A) 0.8 k/uL (1.0-4.8); Lymphocytes % (A) 8 %; MCH 31.5 pg (25.0-35.0); MCHC 34.1 g/dL (31.0-37.0); MCV 92.5 fL (80.0-100.0); Mean Platelet Volume 8.2; Monocytes # (A) 0.5 k/uL (0-1.0); Monocytes % (A) 5 %; Neutrophils # (A) 8.4 k/uL (1.3-7.7); Neutrophils % (A) 84 %; Platelet Count 285 k/uL (150-450); RBC 3.34 m/uL (4.30-5.90); RDW 13.1 % (11.5-15.5)
[2021-01-28 05:30] LABS: Albumin 2.6 g/dL (3.5-5.0); C Reactive Protein 6.2 mg/dL (<1.0); Calcium 8.9 mg/dL (8.4-10.2); Total Bilirubin 1.3 mg/dL (0.2-1.3); Total Protein 5.6 g/dL (6.3-8.2)
[2021-01-28 06:01] LABS: ABG Base Excess 0.9 mmol/L; ABG HCO3 25 mmol/L (21-25); ABG Oxygen Saturation 94.8 % (94-97); ABG PCO2 39 mmHg (35-45); ABG PH 7.42 (7.35-7.45); ABG PO2 65 mmHg (83-108); ABG TCO2 27 mmol/L (19-24)
[2021-01-28 06:20] LABS: Allen Test Performed? No
[2021-01-28] MEDS: HYDROmorphone 1 MG/ML 1 ML SYRINGE IVP PRN ×5 (06:26→21:47)
[2021-01-28] MEDS: NOREPINEPHRINE 4 MG in SODIUM CHLORIDE 0.9% 250 ML IV SCH ×2 (06:26→19:00)
--- NOTE | 2021-01-28 08:17 | XR ---
EXAMINATION TYPE: XR chest 1V portable DATE OF EXAM: 01/28/2021 COMPARISON: Chest x-ray 01/27/2021 HISTORY: Abnormal chest x-ray, pneumonia TECHNIQUE: Single frontal view of the chest is obtained. FINDINGS: There is not a significant interval change. Left subclavian central venous catheter shows the distal tip near the cavoatrial junction level, tracheostomy tube, postop changes to the cervical spine again noted and stable. No evident pneumothorax or pleural effusion. Cardiac mediastinal silhou ette is unchanged. Lung volumes are low, patient is rotated. There are overlying artifacts. IMPRESSION: Findings are similar to prior exam, correlate for pneumonia, edema
[2021-01-28] MEDS: CHLORHEXIDINE GLUCONATE 15 ML CUP MUCOUS MEM SCH ×2 (09:04→21:06)
[2021-01-28] MEDS: ASCORBIC ACID 500 MG TAB PO SCH (09:04)
[2021-01-28] MEDS: CHOLECALCIFEROL 25 MCG (1000 IU) TABLET PO SCH (09:05)
[2021-01-28] MEDS: DEXAMETHASONE SOD PHOSPHATE 10 MG/ML 1 ML VIAL IVP SCH ×2 (09:05→21:06)
[2021-01-28] MEDS: ENOXAPARIN 40 MG/0.4 ML SYRINGE SQ SCH (09:05)
[2021-01-28] MEDS: LACTULOSE 20 GM/30 ML CUP PO SCH (09:05)
[2021-01-28] MEDS: ZINC SULFATE 220 MG CAP PO SCH (09:06)
[2021-01-28] MEDS: PANTOPRAZOLE 40 MG/10 ML VIAL IVP SCH (09:06)
[2021-01-28] MEDS: VORICONAZOLE 200 MG in SODIUM CHLORIDE 0.9% 100 ML IVPB SCH ×2 (09:33→23:21)
[2021-01-28] MEDS: CISATRACURIUM 200 MG in SODIUM CHLORIDE 0.9% 180 ML IV SCH (09:36)
[2021-01-28] MEDS: fentaNYL (PF). 1,000 MCG in SODIUM CHLORIDE 0.9% 80 ML IV SCH (09:37)
[2021-01-28] MEDS: LINEZOLID 600 MG in DEXTROSE/WATER 1 300ML.BAG IVPB SCH ×2 (10:39→23:21)
[2021-01-28] MEDS: DEXMEDETOMIDINE/0.9% NACL(PMX) 400 MCG in EMPTY BAG 1 BAG IV SCH (11:35)
--- NOTE | 2021-01-28 11:47 | P.PN ---
Subjective Progress Note Date: 01/28/21 Principal diagnosis: Acute hypoxic respiratory failure secondary to COVID-19 pneumonia 01/27/2021, the patient's condition has a more stabilized. Since yesterday, the patient was taken off paralytics and the patient is currently on propofol running at 75 mcg/kg per minute. He seems to be quite intense a mechanical ventilator. He is also arousable with stimulation. He does have some occasional cough. No spontaneous eye opening. He is quite synchronous with the mechanical ventilator. I have him on VC plus mode at the rate of 22 with a tidal volume of 450 and PEEP of 12 and FiO2 is currently down to 60%. Chest x- ray shows bilateral pulmonary infiltrates, slightly improved compared to yesterday. He was having significant amount of air leak around his tracheostomy tube and we were able to manage that with some had manipulation and positioning of the tracheostomy tube. The patient has a #[address] tube in [address] On today's evaluation, the leaks are minimal. His peak airway pressures around 33. 70 pressures around 30. The patient had a blood gas today that showed a pH of 7.39 with a pCO2 of 45 and a pO2 of 61 and this was on FiO2 of 60%. The sputum sample is positive for Aspergillus and charity bacterium and the patient remains on a broad-spectrum antibiotics including Zyvox, voriconazole, and IV cefepime. 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 Meanwhile, the patient is hemodynamically stable. I'm a bit concerned about his kidney function. Creatinine today was up to 1.28 and the patient is producing adequate amount of urine output in the order of 50-60 mL an hour. In terms of his inflammatory markers, the patient has a d-dimer of 5.45 and LDH is 1073, improved compared to yesterday and his CRP level is down to 16.3. Meanwhile, he is still being treated with Decadron at a dose of 60 mg IV every 24 hours. He was taken off the Baricitinib several days ago. He remains on Lovenox for DVT prophylaxis at a dose of 40 mg subcu every 24 hours. He remains on Levemir insulin 10 units a day in addition to NovoLog sliding scale coverage. No other significant events overnight. He did have a bout of hyperkalemia and the potassium level was as high as 6.2 and this was managed appropriately and the potassium level is improved. Hemodynamically stable. No pressors. Liver function tests have been abnormal yet stable. The patient has not produced any bowel movement activity at. The patient was started on lactulose. Reevaluated today on 01/28/2021, patient remains in the ICU, intubated and mechanically ventilated. Patient is on volume control plus the rate of 20 to tell volume 450 FiO2 60% PEEP of 10. ABG showed a pO2 of 65 pCO2 39 pH of 7.42 on 50% FiO2. Remains on propofol at 55 mcg/kg/m, not requiring any other sedatives, he is off paralytics. Patient is status post tracheostomy and PEG tube placement on 01/23. Patient is on enteral feeding using vital AF at 1 3 mL per hour. He is also on Decadron at 60 mg IV push twice a day. Patient is arousable, follows very simple instructions. Chest x-ray continues to show bilateral Infiltrates, right more so than left. Tracheostomy seems to be intact. ABC is relatively normal d-dimer is 5.63 electrolytes are normal , BUN is 38 creatinine 1.18 liver enzymes are a bit elevated ALT of 250 AST of 95 LDH is 1025 C-reactive protein 6.2. Patient remains on the COVID-19 cocktail, he is also on voriconazole. Zyvox. Decadron 6 mg IV push twice a day. Cefepime. Objective - Vital Signs Vital signs: Vital Signs Temp 99.2 F 01/28/21 08:00 Pulse 77 01/28/21 11:00 Resp 27 H 01/28/21 11:00 BP 121/74 01/28/21 11:00 Pulse Ox 93 L 01/28/21 11:00 Intake & Output 01/27/21 01/28/21 01/28/21 18:59 06:59 18:59 Intake Total 3359.179 9058 598.963 Output Total 1425 1165 585 Balance 408.460 134 13.963 Weight 104.7 kg Intake: IV 452 506 230 Pressure Bags 72 66 30 Sodium Chloride 0.9% 1, 380 440 200 000 ml @ 20 mls/hr IV . Q24H [facility] Rx#:[id number] Intake, IV Titration 988.460 500 143.963 Amount Cefepime 2 gm In Sodium 200 Chloride 0.9% 100 ml @ 25 mls/hr IVPB Q8HR [facility] Rx# :[id number] Linezolid 600 mg In 300 Dextrose/Water 1 300ml. bag @ 150 mls/hr IVPB Q12H [facility] Rx#:[id number] Voriconazole 200 mg In 100 Sodium Chloride 0.9% 100 ml @ 125 mls/hr IVPB Q12HR [facility] Rx#:[id number] propofoL 1,000 mg In 388.460 500 143.963 Empty Bag 1 bag @ Titrate IV .Q0M [facility] Rx#: [id number] Tube Feeding 143 143 65 Other 250 150 160 Output: Urine 1425 1165 585 Other: Voiding Method Indwelling Catheter Indwelling Catheter Indwelling Catheter ABP, PAP, CO, CI - Last Documented Arterial Blood Pressure 120/52 - Exam Physical Exam: Revealed a 55-year-old white male in no distress. On mechanical ventilation. Patient has a tracheostomy in place. Head: Atraumatic, normocephalic. Tracheostomy is intact. HEENT:[Neck is supple.] [No neck masses.] [No thyromegaly.] [No JVD.] Intact tracheostomy is noted. Chest: Symmetrical chest expansion crackles at the bases bilaterally. Cardiac Exam: [Normal S1 and S2, no S3 gallop, no murmur.] Abdomen: [Soft, nontender, no megaly, no rebound, no guarding, normal bowel sounds.] PEG tube is intact. Extremities: 1+ bipedal edema, no clubbing, no cyanosis. Neurological Exam: Early arousable, patient is on propofol, follows very simple instructions. Psychiatric: Could not assess. Skin: No rashes. - Labs CBC & Chem 7: 01/28/21 04:55 01/28/21 04:55 Labs: Abnormal Lab Results - Last 24 Hours (Table) 01/27/21 01/27/21 01/27/21 Range/Units 04:15 12:12 12:16 RBC (4.30-5.90) m/uL Hgb (13.0-17.5) gm/dL Hct (39.0-53.0) % Neutrophils # (1.3-7.7) k/uL Lymphocytes # (1.0-4.8) k/uL D-Dimer (<0.60) mg/L FEU ABG pCO2 47 H (35-45) mmHg ABG pO2 (83-108) mmHg ABG HCO3 26 H (21-25) mmol/L ABG Total CO2 28 H (19-24) mmol/L ABG O2 Saturation 97.1 H (94-97) % Chloride (98-107) mmol/L BUN (9-20) mg/dL Glucose (74-99) mg/dL POC Glucose (mg/dL) 168 H (75-99) mg/dL AST (17-59) U/L ALT (4-49) U/L Alkaline Phosphatase (38-126) U/L Lactate Dehydrogenase (313-618) U/L C-Reactive Protein (<1.0) mg/dL Total Protein (6.3-8.2) g/dL Albumin (3.5-5.0) g/dL Procalcitonin 10.10 H (0.02-0.09) ng/mL 01/27/21 01/27/21 01/28/21 Range/Units 18:02 23:32 04:55 RBC 3.34 L (4.30-5.90) m/uL Hgb 10.5 L (13.0-17.5) gm/dL Hct 30.9 L (39.0-53.0) % Neutrophils # 8.4 H (1.3-7.7) k/uL Lymphocytes # 0.8 L (1.0-4.8) k/uL D-Dimer (<0.60) mg/L FEU ABG pCO2 (35-45) mmHg ABG pO2 (83-108) mmHg ABG HCO3 (21-25) mmol/L ABG Total CO2 (19-24) mmol/L ABG O2 Saturation (94-97) % Chloride (98-107) mmol/L BUN (9-20) mg/dL Glucose (74-99) mg/dL POC Glucose (mg/dL) 186 H 203 H (75-99) mg/dL AST (17-59) U/L ALT (4-49) U/L Alkaline Phosphatase (38-126) U/L Lactate Dehydrogenase (313-618) U/L C-Reactive Protein (<1.0) mg/dL Total Protein (6.3-8.2) g/dL Albumin (3.5-5.0) g/dL Procalcitonin (0.02-0.09) ng/mL 01/28/21 01/28/21 01/28/21 Range/Units 04:55 04:55 05:21 RBC (4.30-5.90) m/uL Hgb (13.0-17.5) gm/dL Hct (39.0-53.0) % Neutrophils # (1.3-7.7) k/uL Lymphocytes # (1.0-4.8) k/uL D-Dimer 5.63 H (<0.60) mg/L FEU ABG pCO2 (35-45) mmHg ABG pO2 65 L (83-108) mmHg ABG HCO3 (21-25) mmol/L ABG Total CO2 27 H (19-24) mmol/L ABG O2 Saturation (94-97) % Chloride 109 H (98-107) mmol/L BUN 38 H (9-20) mg/dL Glucose 139 H (74-99) mg/dL POC Glucose (mg/dL) (75-99) mg/dL AST 95 H (17-59) U/L ALT 250 H (4-49) U/L Alkaline Phosphatase 154 H (38-126) U/L Lactate Dehydrogenase 1025 H (313-618) U/L C-Reactive Protein 6.2 H (<1.0) mg/dL Total Protein 5.6 L (6.3-8.2) g/dL Albumin 2.6 L (3.5-5.0) g/dL Procalcitonin (0.02-0.09) ng/mL Microbiology - Last 24 Hours (Table) 01/27/21 08:00 Gram Stain - Preliminary Sputum Sputum Culture - Preliminary 01/25/21 11:50 Gram Stain - Final Sputum Sputum Culture - Final Mine albicans 01/24/21 10:22 Blood Culture - Preliminary Blood No Growth after 72 hours Assessment and Plan Assessment: Impression: Acute hypoxic respiratory failure secondary to COVID-19 pneumonia, intubated on 01/14, treated initially with Decadron and baricitinib, underwent tracheostomy on 01/23 and PEG tube placement. Developed superinfection requiring antibiotics and antifungal treatment. Sputum cultures have grown Aspergillus and corynebacterium. Patient is now on Zyvox, cefepime, and voriconazole. And he is off baricitinib, intermittently crept tracheostomy is noted. But not much of a loss of tidal volume. Today the patient will remain on 60% FiO2 and PEEP of 10, will titrate his FiO2 as tolerated. Likely drop down to 50%. ARDS associated with COVID-19 pneumonia Degenerative joint disease Aspergillus fumigatus and sputum Elevated liver enzymes secondary to COVID-19 infection Acute sepsis secondary to pneumonia and suspect septic shock, required pressors for a short period of time. Acute kidney injury secondary to COVID-19 infection/pneumonia. Recommendation: Continue ventilatory support, try to titrate FiO2 to 50% if possible and keep the PEEP at 10 for now. Continue daily assessment of mental status off sedation. Continue antibiotics and antifungals for now. Continue to monitor inflammatory markers and liver profile. As well as renal profile. Daily x-rays of the chest. Continue enteral feeding and nutritional support. Hemodynamic support if necessary. Continue Lovenox. Continue Decadron. Continue COVID-19 cocktail. Overall prognosis remains relatively guarded, patient remains critically ill. Critical care time is over 30 minutes. Time with Patient: Greater than 30
--- NOTE | 2021-01-28 11:49 | P.PN ---
Subjective Progress Note Date: 01/28/21 CHIEF COMPLAINT: COVID-19 pneumonia HISTORY OF PRESENT ILLNESS: Patient in the ICU and required mechanical ventilation. Patient is status post trach and PEG tube placement. Patient is able to maintain his tidal volumes. He is also tolerating his tube feeds. No residual. He did have a bowel movement. They are working on weaning off of sedation. Patient has a low-grade temp of 100.2. WBC is 10 PHYSICAL EXAM: VITAL SIGNS: Reviewed. GENERAL: Well-developed in no acute distress. HEENT: No sclera icterus. Extraocular movements grossly intact. Moist buccal mucosa. Head is atraumatic, normocephalic. Tracheostomy site clean dry and intact ABDOMEN: Soft. Nondistended. Nontender. PEG tube site clean dry and intact NEUROLOGIC: Alert and oriented. Cranial nerves II through XII grossly intact. ASSESSMENT: 1. Acute hypoxic respiratory failure secondary to COVID-19 pneumonia status post tracheostomy placement 2. Severe protein calorie malnutrition status post PEG tube placement PLAN: -Continue to monitor tracheostomy -Continue ICU management -Continue supportive care Physician Rn Surgical note has been reviewed by physician. Signing provider agrees with the documented findings, assessment, and plan of care. Objective - Vital Signs Vital signs: Vital Signs Temp 99.2 F 01/28/21 08:00 Pulse 77 01/28/21 11:00 Resp 27 H 01/28/21 11:00 BP 121/74 01/28/21 11:00 Pulse Ox 93 L 01/28/21 11:00 Intake & Output 01/27/21 01/28/21 01/28/21 18:59 06:59 18:59 Intake Total 6449.809 3482 598.963 Output Total 1425 1165 585 Balance 408.460 134 13.963 Weight 104.7 kg Intake: IV 452 506 230 Pressure Bags 72 66 30 Sodium Chloride 0.9% 1, 380 440 200 000 ml @ 20 mls/hr IV . Q24H [facility] Rx#:[id number] Intake, IV Titration 988.460 500 143.963 Amount Cefepime 2 gm In Sodium 200 Chloride 0.9% 100 ml @ 25 mls/hr IVPB Q8HR [facility] Rx# :[id number] Linezolid 600 mg In 300 Dextrose/Water 1 300ml. bag @ 150 mls/hr IVPB Q12H [facility] Rx#:[id number] Voriconazole 200 mg In 100 Sodium Chloride 0.9% 100 ml @ 125 mls/hr IVPB Q12HR [facility] Rx#:[id number] propofoL 1,000 mg In 388.460 500 143.963 Empty Bag 1 bag @ Titrate IV .Q0M [facility] Rx#: [id number] Tube Feeding 143 143 65 Other 250 150 160 Output: Urine 1425 1165 585 Other: Voiding Method Indwelling Catheter Indwelling Catheter Indwelling Catheter ABP, PAP, CO, CI - Last Documented Arterial Blood Pressure 120/52 - Labs CBC & Chem 7: 01/28/21 04:55 01/28/21 04:55 Labs: Abnormal Lab Results - Last 24 Hours (Table) 01/27/21 01/27/21 01/27/21 Range/Units 04:15 12:12 12:16 RBC (4.30-5.90) m/uL Hgb (13.0-17.5) gm/dL Hct (39.0-53.0) % Neutrophils # (1.3-7.7) k/uL Lymphocytes # (1.0-4.8) k/uL D-Dimer (<0.60) mg/L FEU ABG pCO2 47 H (35-45) mmHg ABG pO2 (83-108) mmHg ABG HCO3 26 H (21-25) mmol/L ABG Total CO2 28 H (19-24) mmol/L ABG O2 Saturation 97.1 H (94-97) % Chloride (98-107) mmol/L BUN (9-20) mg/dL Glucose (74-99) mg/dL POC Glucose (mg/dL) 168 H (75-99) mg/dL AST (17-59) U/L ALT (4-49) U/L Alkaline Phosphatase (38-126) U/L Lactate Dehydrogenase (313-618) U/L C-Reactive Protein (<1.0) mg/dL Total Protein (6.3-8.2) g/dL Albumin (3.5-5.0) g/dL Procalcitonin 10.10 H (0.02-0.09) ng/mL 01/27/21 01/27/21 01/28/21 Range/Units 18:02 23:32 04:55 RBC 3.34 L (4.30-5.90) m/uL Hgb 10.5 L (13.0-17.5) gm/dL Hct 30.9 L (39.0-53.0) % Neutrophils # 8.4 H (1.3-7.7) k/uL Lymphocytes # 0.8 L (1.0-4.8) k/uL D-Dimer (<0.60) mg/L FEU ABG pCO2 (35-45) mmHg ABG pO2 (83-108) mmHg ABG HCO3 (21-25) mmol/L ABG Total CO2 (19-24) mmol/L ABG O2 Saturation (94-97) % Chloride (98-107) mmol/L BUN (9-20) mg/dL Glucose (74-99) mg/dL POC Glucose (mg/dL) 186 H 203 H (75-99) mg/dL AST (17-59) U/L ALT (4-49) U/L Alkaline Phosphatase (38-126) U/L Lactate Dehydrogenase (313-618) U/L C-Reactive Protein (<1.0) mg/dL Total Protein (6.3-8.2) g/dL Albumin (3.5-5.0) g/dL Procalcitonin (0.02-0.09) ng/mL 01/28/21 01/28/21 01/28/21 Range/Units 04:55 04:55 05:21 RBC (4.30-5.90) m/uL Hgb (13.0-17.5) gm/dL Hct (39.0-53.0) % Neutrophils # (1.3-7.7) k/uL Lymphocytes # (1.0-4.8) k/uL D-Dimer 5.63 H (<0.60) mg/L FEU ABG pCO2 (35-45) mmHg ABG pO2 65 L (83-108) mmHg ABG HCO3 (21-25) mmol/L ABG Total CO2 27 H (19-24) mmol/L ABG O2 Saturation (94-97) % Chloride 109 H (98-107) mmol/L BUN 38 H (9-20) mg/dL Glucose 139 H (74-99) mg/dL POC Glucose (mg/dL) (75-99) mg/dL AST 95 H (17-59) U/L ALT 250 H (4-49) U/L Alkaline Phosphatase 154 H (38-126) U/L Lactate Dehydrogenase 1025 H (313-618) U/L C-Reactive Protein 6.2 H (<1.0) mg/dL Total Protein 5.6 L (6.3-8.2) g/dL Albumin 2.6 L (3.5-5.0) g/dL Procalcitonin (0.02-0.09) ng/mL Microbiology - Last 24 Hours (Table) 01/27/21 08:00 Gram Stain - Preliminary Sputum Sputum Culture - Preliminary 01/25/21 11:50 Gram Stain - Final Sputum Sputum Culture - Final Mine albicans 01/24/21 10:22 Blood Culture - Preliminary Blood No Growth after 72 hours
[2021-01-28 12:38] LABS: Glucose,Whole Blood 174 mg/dL (75-99)
--- NOTE | 2021-01-28 15:27 | P.PN ---
Subjective Progress Note Date: 01/28/21 HISTORY OF PRESENT ILLNESS This is a 55-year-old male patient of Dr. 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 Patient states he has not been feeling well since Thursday. He said shortness of breath cough is nonproductive along with fever and chills, exertional dyspnea. He denies having any nausea vomiting or diarrhea. He denies any close contacts to known Covid people. He states his temperature is been up to 102.7 at home. He is not vaccinated. Patient presented to [facility] emergency center and found to be febrile at 101.1, heart rate 90, blood pressure 122/80, pulse ox 85% on room air. CBC revealed platelet count of 128. D-dimer 0.82. Sodium 131 otherwise electrolytes and renal function were normal. Blood sugar 147. Troponin negative. Coronavirus PCR positive. Chest x-ray reveals patchy bilateral airspace disease especially in the mid and lower lungs. Correlate for multifocal pneumonia including Covid 19 pneumonia. CTA of the chest was suboptimal study without central acute pulmonary embolism. Bilateral multifocal and confluent groundglass opacities right greater than left and greater in the lower lungs consistent with known Covid 19 infection. Patient is seen today in the emergency center waiting for bed on the [facility] floor, started on Remdesivir, Lovenox, dexamethasone and vitamin supplements, consult with pulmonary medicine. 01/12: Patient is comfortable, however he requires 40 L of oxygen via airvo sats 88-89%, he feels better today compared to his nonrebreather mask yesterday, patient did not sleep well, patient does not have any cough, however he does have shortness of breath. Patient denies any aspiration, appetite is still marginal, patient has insomnia vitals, blood sugar currently is 243, creatinine of 0.98, d-dimer is 0.84, CRP is elevated, LDH is elevated, venous Doppler, shows chronic DVT, left popliteal, in the posterior tibial veins, without any obstruction of flow. No acute DVT identified CTA, shows suboptimal, without central acute pulmonary emboli, has bilateral multifocal and confluent groundglass opacities, right greater than left, lower lobe, consistent with COVID-19 infection and remdesivir discontinued by pulmonary today and is outside of the window for remdesivir 01/13: Patient is on aerosol 14 L, with nonrebreather mask, 15 L, hypoxemia n oted on 88%, worse with coughing, however his nonrebreather mask is very loose. Nurse is worriedwith the turn of events, and requested an ICU transfer, Dr. Canales has seen the patient, and is stable for floor management at this time, patient is not significant tachypnea, and is not tiring out. There is no hemoptysis, and mucus is productive, patient's doing incentive spirometry, up 2 L. 01/14: Patient remains in the intensive care unit, he was intubated this morning as he was desaturating with BiPAP. He has been afebrile, heart rate 73, blood pressure 93/47, pulse ox 90%. CBC is unremarkable. D-dimer 12.04. Sodium 135, creatinine 0.82. LDH 2929, C-reactive protein 5.2. Sputum culture is in progress. He has had good urine output. Chest x-ray reveals no evident convocation from catheters. Bilateral airspace disease. 01/15: Patient remains in the intensive care intubated and on mechanical ventilation with tidal volume 450, FiO2 80, PEEP of 15. Patient has been started on norepinephrine and remains on propofol, heparin drip, Nimbex. Repeat blood work revealed unremarkable CBC. Creatinine 0.88. Capillary blood glucose running between 195 and 215. AST 126, ALT 183, alkaline phosphatase 109. Sputum culture is in progress. Repeat chest x-ray reveals correlate for pneumonia versus edema, ARDS. Patient is continued on vitamin supplements, heparin drip, dexamethasone and Baricitinib. patient remains in intensive care intubated on mechanical ventilator at FiO2 60 percent PEEP respiratory rate of 30 tidal volume 450. Continues to maintain saturations between 94-95% on the current settings. Vitals otherwise stable labs reviewed today WBC is 9.5 hemoglobin 12.4 d-dimer is elevated at 4.98. ABG obtained today suggest pH of 7.4 pO2 53 bicarb 26 on 50% FiO2. Creatinine stable at 0.78 glucose is maintained between 145-190. LDH 1564 CRP is elevated at 4. Patient's inflammatory markers trending down. Patient's vent settings increased to 80% for inadequate oxygenation. Chest x-ray reviewed showed bilateral infiltrate consistent with coronavirus associated pneumonia. Patient continues intubated on propofol 70 bike but patient examined Nimbex 1.25 g daily per minute. Patient to receive 1 dose of Lasix today. Continue to remain on baricitinib day 2 PAtient remains intubaated since . patient continues too remain on assist control, TV 450 , peep 15 and fio2 of 60 %. patient was proned for 16 hours yesterday. CXR was reviewed, COVID pneumonia but no significant change was noted, Will repeat inflammatory markers tomorrow. Vent managment per route aide. Patient contines to remain propofol , nimbex. Continue on lovenox, baricitinib, dexamethasone and vit supplement 01/18 patient continues to remain intubated. Covid pneumonia. Is currently on assist control respiratory rate of 30 tidal volume 450 FiO2 of 55% and PEEP of 15. She is currently on heparin drip, propofol and Nimbex. Patient continues to tolerate prone positioning 16 hours overnight. Continues to receive dexamethasone, vitamin supplement, anticoagulation with heparin, baricitinib. Labs are reviewed patient has a hemoglobin stable at 12.2. This morning pH 7.48 PCO2 44 bicarb 32 creatinine 0.73 AST 100 chest x-ray done this morning suggestive of ARDS and pneumonia 01/19 patient continues to remain intubated currently on assist-control vent with a rate of 30 tidal volume 450 FiO2 50 and PEEP of 15. Continues to remain on propofol and Nimbex. Continue heparin drip for anticoagulation. Remains on Baricitinib , vitamin supplementation and dexamethasone. Labs reviewed hemoglobin stable at 12 PTT 53 blood gas obtained today suggest a pH of 7.45 pCO2 46 pO2 69 bicarb 32 BUN 23 creatinine 0.0.8 glucose 122 AST ED ALT 226. inflammation markers ordered for tomorrow last set was obtained on 01/12 01/20 Intubated. Vitals reviewed patient's afebrile pulse of 68 respiratory rate 30 blood pressure. 94/56 oxygen 91% on 50% FiO2. Patient remains on assist control, tidal volume 450 respiratory rate 30 FiO2 of 50% and PEEP of 15. He is currently on Pneumovax at 3 mics per KG per minute propofol at 50 Micro-K to Coumadin and heparin drip. Patient labs are reviewed hemoglobin is 11.7. Arterial blood gas at 50% FiO2 has a pH of 7.47 pO2 of 77 bicarb of 31 BUN 24 creatinine 0.7 LDH [id number] CRP 8.70. CRP is slightly elevated with improvement in LDH. Continue to monitor patient with the goal with treatment on heparin, as dexamethasone, vitamin supplementation and Baricitinib . Blood sugar are well controlled. 01/21: Patient remains intubated and on mechanical ventilation with tidal volume 400, FiO2 40 and PEEP of 16. Patient is on propofol and fentanyl drips. He is on tube feedings to be increased to 26 ML's per hour and tolerating. She he has had 100 250 ML's of urine output per hour. He has been afebrile, heart rate 70, respiratory rate 30, blood pressure 115/64, pulse ox 93%. Repeat blood work reveals WBC 7.4, hemoglobin 12, platelet count 310. D-dimer 1.23. Sodium 134, BUN 24 and creatinine 0.73. Blood sugars are running between 101 and 164. AST 105, ALT 261, alkaline phosphatase 135. LDH 999. C-reactive protein 13.5. Albumin 2.9. Gallbladder ultrasound reveals nonspecific pattern of liver can be seen with hepatic steatitis or hepatocellular disease including hepatitis. The chest x-ray reveals bilateral patchy airspace disease stable. 01/22: Remains in the intensive care unit intubated and on mechanical ventilation with tidal volume 400, FiO2 40, PEEP of 13. Paralytics for pause this morning and patient had significant drop in his pulse ox. He is currently on propofol, fentanyl and Nimbex. He has been afebrile, heart rate 73, blood pressure 99/63, pulse ox 90%. Repeat blood work reveals hemoglobin 11.6. Creatinine 0.81. Blood sugars are running between 98 and 155. AST 85, ALT 260, alkaline phosphatase 132. LDH 954, C-reactive protein 6.8. Repeat chest x-ray reveals bilateral patchy diffuse airspace disease stable. Patient is continued on Baricitinib, Lovenox 40 mg subcu daily, dexamethasone 6 mg IV push and vitamin supplements 01/23: Remains in the intensive care unit on mechanical ventilation with tidal volume 400, FiO2 40 and PEEP of 10. Patient is scheduled for trach and PEG tube placement today. He is currently on propofol, fentanyl and Nimbex. Patient remains afebrile, heart rate 69, respiratory rate 30, blood pressure 120/76, pulse ox 93%. Repeat blood work reveals creatinine is 0.71. WBC 8.3, hemoglobin 12.9. AST 111, ALT 328, alkaline phosphatase 153. Blood sugars have been running between 92 and 193. Sputum culture is showing Corynebacterium species from 01/21 and Aspergillus from 01/14. Repeat chest x-ray reveals bilateral patchy diffuse airspace disease stable. Patient is continued on Baricitinib, Lovenox 40 mg subcu daily, dexamethasone 6 mg IV push and vitamin supplements 01/24: Patient is status post trach and PEG tube done yesterday by Dr. Olivares. Patient is off Nimbex and he has his eyes open but not following commands. Patient's is planning to come in today to see him. He remains on ventilator with tidal volume 300, FiO2 50 and PEEP of 10. Repeat chest x-ray reveals diffuse bilateral infiltrate stable. Antibiotics have been changed to ce fepime and patient started on IV Voriconazole. Patient is continued on dexamethasone, Lovenox and vitamin supplements. WBC 17.2, hemoglobin 12.3. Sodium 130, BUN 21 creatinine 0.83. Total bilirubin 2, AST 54, ALT 248, alkaline phosphatase 132. Capillary blood glucose running between 80 and 193. 01/25: Patient remains in the intensive care unit on mechanical ventilation with tidal volume 400, FiO2 is been increased to 100 and PEEP of 12. Patient is currently on propofol, and was started on vasopressors yesterday and is status post 2 L of IV fluid. Temperature max 101.3. Pulse 87, respiratory rate 33, blood pressure 120/57, pulse ox 95%. front desk monitor is a sinus rhythm. Repeat blood work reveals WBC 8.3, hemoglobin 11. Sodium 136, chloride 108. Creatinine is 0.83. Calcium 7.9. Total bilirubin 2.7, AST 64, ALT 171, alkaline phosphatase 127. LDH 1187. C-reactive protein 32.6. Blood sugars are running between 133 and 173. Urine culture is showing gram-negative bacilli. Blood culture from 01/24 showing no growth at 24 hours. Repeat chest x-ray reveals clear to megaly with bilateral confluent mid to lower lung opacities consistent with: 19 infection redemonstrated. No significant change. Patient is currently on cefepime, Zyvox and there, so for worsening bilateral pulmonary infiltrate, pneumonia. 01/26: Patient remains in intensive care unit on mechanical ventilation with tidal volume 450, FiO2 80 and PEEP of 12. He has been afebrile for greater than 24 hours. Heart rate 80, blood pressure 132/70, pulse ox 86%. He does have leaking around the tracheostomy site. Repeat blood work reveals WBC 8, hemoglobin 11.1, platelet count 291. Sodium 135, potassium 5.8, creatinine 1.15. Total bilirubin 1.8, AST 101, ALT 194, alkaline phosphatase 135. LDH 1156. C-reactive protein 35.7. Blood sugars are running between 154 and 183. Patient will be started on Levemir 10 units at bedtime. He is continued on cef epime, Zyvox and voriconazole. 01/27: Patient remains intubated and on mechanical ventilation with tidal volume 400 50, FiO2 60, PEEP of 12. Plan is to try and wean oxygen down today. Tracheostomy tube has been manipulated and repositioned. He is not requiring vasopressors, currently on propofol. Chest x-ray reveals no significant interval change. Patient has had good urine output with BUN of 37 creatinine 1.28. Other lab work reveals WBC 9.8, hemoglobin 10.7. D-dimer 5.45. Total bilirubin 1.4, AST 153, ALT 282, alkaline phosphatase 138, LDH 1073. C-reactive protein 16.3. ProCalcitonin 10.1. 01/28: Remains in the intensive care unit, intubated and on mechanical ventilation with tidal volume 450, FiO2 of 60 and PEEP of 10. Patient is responsive, follows a few simple commands. He is currently on antibiotics in the form of cefepime, Zyvox and voriconazole. Patient is also continued on Decadron and Lovenox. Repeat blood work reveals WBC of 10, hemoglobin 10.5. D- dimer 5.63. C-reactive protein 6.2. LDH 1025. Total bilirubin 1.3, AST 95, ALT 250. Patient is on tube feedings at goal. He has had good urine output. Social work will start process for discharge to select specialty with anticipation of him being ready by the end of the week. REVIEW OF SYSTEMS. Unable to obtain due to mechanical ventilation PHYSICAL EXAMINATION Gen: This is a 55-year-old male. He is resting in ICU bed, on mechanical ventilation status post trach and PEG, appears to be comfortable. Full examination deferred to the intensive due to mechanical ventilation and Covid 19. ASSESSMENT AND PLAN 1. Acute hypoxic respiratory failure secondary to Covid 19 pneumonia and possible secondary pneumonia, gram-negative and fungal. Patient required intubation 01/14. Patient is status post trach and PEG tube placement 01/[address] Olivares. Patient started on Remdesivir was discontinued by pulmonary, on January 12/2021 started on baricinib 4 mg daily, Baricitinib discontinued on 01/24. Continue cefepime, dexamethasone, Lovenox, Zyvox, voriconazole, continue ventilatory management per route aide. 2. Acute respiratory distress syndrome secondary to coronavirus pneumonia. 3. Acute septic shock requiring vasopressors. Patient is status post IV fluid bolus and off vasopressors. 4. History of bilateral pulmonary emboli and DVT in 2015. CTA negative for PE. Not on chronic anticoagulation. 5. Acute transaminitis secondary to Covid 19. 6. Generalized osteoarthritis. 7. Degenerative changes in the cervical spine status post fusion of C5-6. 8. 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 9. Elevated liver function tests, transaminitis. 10. Hyperglycemia secondary to steroids. Patient is on NovoLog scale, Levemir 10 units at bedtime added. 11. Severe hyperkalemia status post IV push calcium gluconate, dextrose and regular insulin, IV push sodium bicarb. 12. GI prophylaxis. Protonix. 13. DVT prophylaxis. Lovenox. DISCHARGE PLAN Home. vs IP rehab . will expect to stay here for covid protracted length of time Impression and plan of care have been directed as dictated by the signing physician. Shakila Mosqueda nurse practitioner acting as scribe for signing physician. Objective - Vital Signs Vital signs: Vital Signs Temp 98.6 F 01/27/21 20:00 Pulse 69 01/28/21 07:00 Resp 27 H 01/28/21 08:00 BP 96/60 01/27/21 21:00 Pulse Ox 94 L 01/28/21 08:00 Intake & Output 01/27/21 01/28/21 01/28/21 18:59 06:59 18:59 Intake Total 9029.108 5961 202.963 Output Total 1425 1165 125 Balance 408.460 134 77.963 Weight 104.7 kg Intake: IV 452 506 46 Pressure Bags 72 66 6 Sodium Chloride 0.9% 1, 380 440 40 000 ml @ 20 mls/hr IV . Q24H [facility] Rx#:[id number] Intake, IV Titration 988.460 500 143.963 Amount Cefepime 2 gm In Sodium 200 Chloride 0.9% 100 ml @ 25 mls/hr IVPB Q8HR [facility] Rx# :[id number] Linezolid 600 mg In 300 Dextrose/Water 1 300ml. bag @ 150 mls/hr IVPB Q12H [facility] Rx#:[id number] Voriconazole 200 mg In 100 Sodium Chloride 0.9% 100 ml @ 125 mls/hr IVPB Q12HR [facility] Rx#:[id number] propofoL 1,000 mg In 388.460 500 143.963 Empty Bag 1 bag @ Titrate IV .Q0M [facility] Rx#: [id number] Tube Feeding 143 143 13 Other 250 150 Output: Urine 1425 1165 125 Other: Voiding Method Indwelling Catheter Indwelling Catheter Indwelling Catheter ABP, PAP, CO, CI - Last Documented Arterial Blood Pressure 133/60 - Labs CBC & Chem 7: 01/28/21 04:55 01/28/21 04:55 Labs: Abnormal Lab Results - Last 24 Hours (Table) 01/27/21 01/27/21 01/27/21 Range/Units 04:15 12:12 12:16 RBC (4.30-5.90) m/uL Hgb (13.0-17.5) gm/dL Hct (39.0-53.0) % Neutrophils # (1.3-7.7) k/uL Lymphocytes # (1.0-4.8) k/uL D-Dimer (<0.60) mg/L FEU ABG pCO2 47 H (35-45) mmHg ABG pO2 (83-108) mmHg ABG HCO3 26 H (21-25) mmol/L ABG Total CO2 28 H (19-24) mmol/L ABG O2 Saturation 97.1 H (94-97) % Chloride (98-107) mmol/L BUN (9-20) mg/dL Glucose (74-99) mg/dL POC Glucose (mg/dL) 168 H (75-99) mg/dL AST (17-59) U/L ALT (4-49) U/L Alkaline Phosphatase (38-126) U/L Lactate Dehydrogenase (313-618) U/L C-Reactive Protein (<1.0) mg/dL Total Protein (6.3-8.2) g/dL Albumin (3.5-5.0) g/dL Procalcitonin 10.10 H (0.02-0.09) ng/mL 01/27/21 01/27/21 01/28/21 Range/Units 18:02 23:32 04:55 RBC 3.34 L (4.30-5.90) m/uL Hgb 10.5 L (13.0-17.5) gm/dL Hct 30.9 L (39.0-53.0) % Neutrophils # 8.4 H (1.3-7.7) k/uL Lymphocytes # 0.8 L (1.0-4.8) k/uL D-Dimer (<0.60) mg/L FEU ABG pCO2 (35-45) mmHg ABG pO2 (83-108) mmHg ABG HCO3 (21-25) mmol/L ABG Total CO2 (19-24) mmol/L ABG O2 Saturation (94-97) % Chloride (98-107) mmol/L BUN (9-20) mg/dL Glucose (74-99) mg/dL POC Glucose (mg/dL) 186 H 203 H (75-99) mg/dL AST (17-59) U/L ALT (4-49) U/L Alkaline Phosphatase (38-126) U/L Lactate Dehydrogenase (313-618) U/L C-Reactive Protein (<1.0) mg/dL Total Protein (6.3-8.2) g/dL Albumin (3.5-5.0) g/dL Procalcitonin (0.02-0.09) ng/mL 01/28/21 01/28/21 01/28/21 Range/Units 04:55 04:55 05:21 RBC (4.30-5.90) m/uL Hgb (13.0-17.5) gm/dL Hct (39.0-53.0) % Neutrophils # (1.3-7.7) k/uL Lymphocytes # (1.0-4.8) k/uL D-Dimer 5.63 H (<0.60) mg/L FEU ABG pCO2 (35-45) mmHg ABG pO2 65 L (83-108) mmHg ABG HCO3 (21-25) mmol/L ABG Total CO2 27 H (19-24) mmol/L ABG O2 Saturation (94-97) % Chloride 109 H (98-107) mmol/L BUN 38 H (9-20) mg/dL Glucose 139 H (74-99) mg/dL POC Glucose (mg/dL) (75-99) mg/dL AST 95 H (17-59) U/L ALT 250 H (4-49) U/L Alkaline Phosphatase 154 H (38-126) U/L Lactate Dehydrogenase 1025 H (313-618) U/L C-Reactive Protein 6.2 H (<1.0) mg/dL Total Protein 5.6 L (6.3-8.2) g/dL Albumin 2.6 L (3.5-5.0) g/dL Procalcitonin (0.02-0.09) ng/mL Microbiology - Last 24 Hours (Table) 01/27/21 08:00 Gram Stain - Preliminary Sputum Sputum Culture - Preliminary 01/25/21 11:50 Gram Stain - Final Sputum Sputum Culture - Final Mine albicans 01/24/21 10:22 Blood Culture - Preliminary Blood No Growth after 72 hours
[2021-01-28] MEDS: SODIUM CHLORIDE 0.9% 1,000 ML IV SCH (16:14)
[2021-01-28 18:12] LABS: Glucose,Whole Blood 177 mg/dL (75-99)
[2021-01-28] MEDS: INSULIN DETEMIR (LEVEMIR) 100 UNIT/ML SYR SQ SCH (21:06)
[2021-01-29 00:55] LABS: Glucose,Whole Blood 160 mg/dL (75-99)
[2021-01-29] MEDS: INSULIN ASPART (NovoLOG) 100 UNIT/ML VIAL SQ SCH ×4 (01:21→19:07)
[2021-01-29 04:42] LABS: Basophils # (A) 0.1 k/uL (0-0.2); Basophils % (A) 1 %; Eosinophils % (A) 0 %; HCT 33.5 % (39.0-53.0); HGB 11.4 gm/dL (13.0-17.5); Lymphocytes # (A) 0.7 k/uL (1.0-4.8); Lymphocytes % (A) 6 %; MCH 31.3 pg (25.0-35.0); MCHC 34.1 g/dL (31.0-37.0); MCV 91.8 fL (80.0-100.0); Mean Platelet Volume 8.4; Monocytes # (A) 0.5 k/uL (0-1.0); Monocytes % (A) 5 %; Neutrophils # (A) 9.6 k/uL (1.3-7.7); Neutrophils % (A) 87 %; Platelet Count 324 k/uL (150-450); RBC 3.65 m/uL (4.30-5.90); RDW 13.6 % (11.5-15.5); WBC 11.1 k/uL (3.8-10.6)
[2021-01-29 04:58] LABS: ALT 204 U/L (4-49); AST 60 U/L (17-59); African American GFR (CKD) >90 (>60 ml/min/1.73 sqM); Albumin 2.8 g/dL (3.5-5.0); Alkaline Phosphatase 158 U/L (38-126); Anion Gap 9 mmol/L; Blood Urea Nitrogen 39 mg/dL (9-20); C Reactive Protein 5.5 mg/dL (<1.0); Calcium 8.9 mg/dL (8.4-10.2); Carbon Dioxide 23 mmol/L (22-30); Chloride 107 mmol/L (98-107); Glucose 156 mg/dL (74-99); LDH 1352 U/L (313-618); Non-African American GFR(CKD) 80 (>60 ml/min/1.73 sqM); Potassium 4.2 mmol/L (3.5-5.1); Sodium 139 mmol/L (137-145); Total Bilirubin 1.1 mg/dL (0.2-1.3); Total Protein 5.9 g/dL (6.3-8.2)
[2021-01-29 05:35] LABS: ABG Base Excess 2.1 mmol/L; ABG HCO3 26 mmol/L (21-25); ABG Oxygen Saturation 94.6 % (94-97); ABG PCO2 37 mmHg (35-45); ABG PH 7.45 (7.35-7.45); ABG PO2 65 mmHg (83-108); ABG TCO2 27 mmol/L (19-24); Allen Test Performed? Yes
[2021-01-29] MEDS: ARTIFICIAL TEARS-HYPROMELLOSE DROPS 15 ML BTL BOTH EYES SCH ×5 (06:49→20:00)
[2021-01-29] MEDS: NOREPINEPHRINE 4 MG in SODIUM CHLORIDE 0.9% 250 ML IV SCH ×2 (07:01→19:07)
[2021-01-29] MEDS: DEXMEDETOMIDINE/0.9% NACL(PMX) 400 MCG in EMPTY BAG 1 BAG IV SCH (07:01)
[2021-01-29] MEDS: LACTULOSE 20 GM/30 ML CUP PO SCH (08:15)
[2021-01-29] MEDS: CEFEPIME 2 GM in SODIUM CHLORIDE 0.9% 100 ML IVPB SCH ×2 (08:15→16:00)
[2021-01-29] MEDS: ENOXAPARIN 40 MG/0.4 ML SYRINGE SQ SCH (08:15)
[2021-01-29] MEDS: CHLORHEXIDINE GLUCONATE 15 ML CUP MUCOUS MEM SCH ×2 (08:15→21:16)
[2021-01-29] MEDS: ASCORBIC ACID 500 MG TAB PO SCH (08:15)
[2021-01-29] MEDS: CHOLECALCIFEROL 25 MCG (1000 IU) TABLET PO SCH (08:15)
[2021-01-29] MEDS: VORICONAZOLE 200 MG in SODIUM CHLORIDE 0.9% 100 ML IVPB SCH ×2 (08:16→21:17)
[2021-01-29] MEDS: PANTOPRAZOLE 40 MG/10 ML VIAL IVP SCH (08:16)
[2021-01-29] MEDS: DEXAMETHASONE SOD PHOSPHATE 10 MG/ML 1 ML VIAL IVP SCH ×2 (08:16→21:16)
[2021-01-29] MEDS: ZINC SULFATE 220 MG CAP PO SCH (08:17)
[2021-01-29] MEDS: HYDROmorphone 1 MG/ML 1 ML SYRINGE IVP PRN ×4 (09:50→21:55)
[2021-01-29] MEDS: CISATRACURIUM 200 MG in SODIUM CHLORIDE 0.9% 180 ML IV SCH (11:30)
[2021-01-29] MEDS: LINEZOLID 600 MG in DEXTROSE/WATER 1 300ML.BAG IVPB SCH ×2 (11:36→21:59)
[2021-01-29] MEDS: QUEtiapine 50 MG TAB PO SCH ×2 (11:36→21:17)
[2021-01-29 12:52] LABS: Glucose,Whole Blood 197 mg/dL (75-99)
--- NOTE | 2021-01-29 13:05 | P.PN ---
Subjective Progress Note Date: 01/29/21 CHIEF COMPLAINT: COVID-19 pneumonia HISTORY OF PRESENT ILLNESS: Patient in the ICU and requiring mechanical ventilation. Patient is status post trach and PEG tube placement. Patient is able to maintain his tidal volumes. He is also tolerating his tube feeds. No residual. He is having bowel movements. Patient was weaned off sedation. Afebrile. WBC 11.1 Patient seen and examined with Dr. Olivares PHYSICAL EXAM: VITAL SIGNS: Reviewed. GENERAL: Well-developed in no acute distress. HEENT: No sclera icterus. Extraocular movements grossly intact. Moist buccal mucosa. Head is atraumatic, normocephalic. Tracheostomy site clean dry and intact ABDOMEN: Soft. Nondistended. Nontender. PEG tube site clean dry and intact NEUROLOGIC: Awake ASSESSMENT: 1. Acute hypoxic respiratory failure secondary to COVID-19 pneumonia status post tracheostomy placement 2. Severe protein calorie malnutrition status post PEG tube placement PLAN: -Continue to monitor tracheostomy -Continue ICU management -Continue supportive care Physician Observation Nurse note has been reviewed by physician. Signing provider agrees with the documented findings, assessment, and plan of care. Objective - Vital Signs Vital signs: Vital Signs Temp 99.2 F 01/29/21 08:00 Pulse 84 01/29/21 11:00 Resp 24 01/29/21 11:00 BP 149/76 01/29/21 11:00 Pulse Ox 93 L 01/29/21 11:00 Intake & Output 01/28/21 01/29/21 01/29/21 18:59 06:59 18:59 Intake Total 9957.653 6462.864 870.269 Output Total 1270 1100 575 Balance 986.008 3387.864 295.269 Weight 104.7 kg 107 kg Intake: IV 552 552 230 Pressure Bags 72 72 30 Sodium Chloride 0.9% 1, 480 480 200 000 ml @ 20 mls/hr IV . Q24H [facility] Rx#:[id number] Intake, IV Titration 265.958 0010.864 365.269 Amount Cefepime 2 gm In Sodium 100 100 Chloride 0.9% 100 ml @ 25 mls/hr IVPB Q8HR [facility] Rx# :[id number] Linezolid 600 mg In 1200 Dextrose/Water 1 300ml. bag @ 150 mls/hr IVPB Q12H [facility] Rx#:[id number] Voriconazole 200 mg In 100 100 Sodium Chloride 0.9% 100 ml @ 125 mls/hr IVPB Q12HR [facility] Rx#:[id number] propofoL 1,000 mg In 338.978 293.864 165.269 Empty Bag 1 bag @ Titrate IV .Q0M [facility] Rx#: [id number] Tube Feeding 226 276 115 Other 280 160 Output: Urine 1270 1100 575 Other: Voiding Method Indwelling Catheter Indwelling Catheter Indwelling Catheter # Bowel Movements 1 ABP, PAP, CO, CI - Last Documented Arterial Blood Pressure 150/62 - Labs CBC & Chem 7: 01/29/21 04:09 01/29/21 04:09 Labs: Abnormal Lab Results - Last 24 Hours (Table) 01/28/21 01/29/21 01/29/21 Range/Units 18:09 00:53 04:09 WBC 11.1 H (3.8-10.6) k/uL RBC 3.65 L (4.30-5.90) m/uL Hgb 11.4 L (13.0-17.5) gm/dL Hct 33.5 L (39.0-53.0) % Neutrophils # 9.6 H (1.3-7.7) k/uL Lymphocytes # 0.7 L (1.0-4.8) k/uL ABG pO2 (83-108) mmHg ABG HCO3 (21-25) mmol/L ABG Total CO2 (19-24) mmol/L BUN (9-20) mg/dL Glucose (74-99) mg/dL POC Glucose (mg/dL) 177 H 160 H (75-99) mg/dL AST (17-59) U/L ALT (4-49) U/L Alkaline Phosphatase (38-126) U/L Lactate Dehydrogenase (313-618) U/L C-Reactive Protein (<1.0) mg/dL Total Protein (6.3-8.2) g/dL Albumin (3.5-5.0) g/dL 01/29/21 01/29/21 01/29/21 Range/Units 04:09 05:30 12:51 WBC (3.8-10.6) k/uL RBC (4.30-5.90) m/uL Hgb (13.0-17.5) gm/dL Hct (39.0-53.0) % Neutrophils # (1.3-7.7) k/uL Lymphocytes # (1.0-4.8) k/uL ABG pO2 65 L (83-108) mmHg ABG HCO3 26 H (21-25) mmol/L ABG Total CO2 27 H (19-24) mmol/L BUN 39 H (9-20) mg/dL Glucose 156 H (74-99) mg/dL POC Glucose (mg/dL) 197 H (75-99) mg/dL AST 60 H (17-59) U/L ALT 204 H (4-49) U/L Alkaline Phosphatase 158 H (38-126) U/L Lactate Dehydrogenase 1352 H (313-618) U/L C-Reactive Protein 5.5 H (<1.0) mg/dL Total Protein 5.9 L (6.3-8.2) g/dL Albumin 2.8 L (3.5-5.0) g/dL Microbiology - Last 24 Hours (Table) 01/24/21 10:22 Blood Culture - Preliminary Blood No Growth after 120 hours 01/27/21 08:00 Gram Stain - Final Sputum Sputum Culture - Final Mine albicans
--- NOTE | 2021-01-29 13:40 | P.PN ---
Subjective Progress Note Date: 01/29/21 Principal diagnosis: Acute hypoxic respiratory failure secondary to COVID-19 pneumonia 01/27/2021, the patient's condition has a more stabilized. Since yesterday, the patient was taken off paralytics and the patient is currently on propofol running at 75 mcg/kg per minute. He seems to be quite intense a mechanical ventilator. He is also arousable with stimulation. He does have some occasional cough. No spontaneous eye opening. He is quite synchronous with the mechanical ventilator. I have him on VC plus mode at the rate of 22 with a tidal volume of 450 and PEEP of 12 and FiO2 is currently down to 60%. Chest x- ray shows bilateral pulmonary infiltrates, slightly improved compared to yesterday. He was having significant amount of air leak around his tracheostomy tube and we were able to manage that with some had manipulation and positioning of the tracheostomy tube. The patient has a #[address] tube in place. On today's evaluation, the leaks are minimal. His peak airway pressures around 33. 70 pressures around 30. The patient had a blood gas today that showed a pH of 7.39 with a pCO2 of 45 and a pO2 of 61 and this was on FiO2 of 60%. The sputum sample is positive for Aspergillus and charity bacterium and the patient remains on a broad-spectrum antibiotics including Zyvox, voriconazole, and IV cefepime. His urine culture also last turner to be positive for E. coli. Meanwhile, the patient is hemodynamically stable. I'm a bit concerned about his kidney function. Creatinine today was up to 1.28 and the patient is producing adequate amount of urine output in the order of 50-60 mL an hour. In terms of his inflammatory markers, the patient has a d-dimer of 5.45 and LDH is 1073, improved compared to yesterday and his CRP level is down to 16.3. Meanwhile, he is still being treated with Decadron at a dose of 60 mg IV every 24 hours. He was taken off the Baricitinib several days ago. He remains on Lovenox for DVT prophylaxis at a dose of 40 mg subcu every 24 hours. He remains on Levemir insulin 10 units a day in addition to NovoLog sliding scale coverage. No other significant events overnight. He did have a bout of hyperkalemia and the potassium level was as high as 6.2 and this was managed appropriately and the potassium level is improved. Hemodynamically stable. No pressors. Liver function tests have been abnormal yet stable. The patient has not produced any bowel movement activity at. The patient was started on lactulose. Reevaluated today on 01/28/2021, patient remains in the ICU, intubated and mechanically ventilated. Patient is on volume control plus the rate of 20 to tell volume 450 FiO2 60% PEEP of 10. ABG showed a pO2 of 65 pCO2 39 pH of 7.42 on 50% FiO2. Remains on propofol at 55 mcg/kg/m, not requiring any other sedatives, he is off paralytics. Patient is status post tracheostomy and PEG tube placement on 01/23. Patient is on enteral feeding using vital AF at 1 3 mL per hour. He is also on Decadron at 60 mg IV push twice a day. Patient is arousable, follows very simple instructions. Chest x-ray continues to show bilateral Infiltrates, right more so than left. Tracheostomy seems to be intact. ABC is relatively normal d-dimer is 5.63 electrolytes are normal , BUN is 38 creatinine 1.18 liver enzymes are a bit elevated ALT of 250 AST of 95 LDH is 1025 C-reactive protein 6.2. Patient remains on the COVID-19 cocktail, he is also on voriconazole. Zyvox. Decadron 6 mg IV push twice a day. Cefepime. Reevaluated today on 01/29/2021, remains intubated and mechanically ventilated. Patient is on volume control plus of 450, rate 22 FiO2 60% PEEP of 10 ABG showed a pO2 of 65 pCO2 of 37 pH of 7.45. Hence no changes were made in the ventilator settings. LDH remains elevated at 135 to propofol is at 55, patient is off norepinephrine, off Precedex, he is off fentanyl, and he is doing relatively well considering his overall picture, patient had intermittent episodes of a gitation and restlessness, and I have recommended we start the patient on Seroquel 50 mg twice a day. And hopefully can titrate the upper fall down and possibly discontinue. Chest x-ray continues to show bilateral interstitial infiltrates, not much of the changes noted on the chest x-ray. WBC count today is 11.1 hemoglobin 11.4. Basic metabolic profile is normal BUN is 39 creatinine is 1.05. LDH is noted to be a bit elevated today compared to yesterday 1352. Objective - Vital Signs Vital signs: Vital Signs Temp 99.2 F 01/29/21 12:00 Pulse 75 01/29/21 13:00 Resp 25 H 01/29/21 13:00 BP 160/87 01/29/21 13:00 Pulse Ox 93 L 01/29/21 12:00 Intake & Output 01/28/21 01/29/21 01/29/21 18:59 06:59 18:59 Intake Total 0737.411 6478.864 1038.269 Output Total 1270 1100 775 Balance 464.735 3209.864 263.269 Weight 104.7 kg 107 kg Intake: IV 552 552 322 Pressure Bags 72 72 42 Sodium Chloride 0.9% 1, 480 480 280 000 ml @ 20 mls/hr IV . Q24H [facility]AD[facility] Rx#:[id number] Intake, IV Titration 333.862 5505.864 365.269 Amount Cefepime 2 gm In Sodium 100 100 Chloride 0.9% 100 ml @ 25 mls/hr IVPB Q8HR [facility] Rx# :[id number] Linezolid 600 mg In 1200 Dextrose/Water 1 300ml. bag @ 150 mls/hr IVPB Q12H [facility] Rx#:[id number] Voriconazole 200 mg In 100 100 Sodium Chloride 0.9% 100 ml @ 125 mls/hr IVPB Q12HR [facility] Rx#:[id number] propofoL 1,000 mg In 338.978 293.864 165.269 Empty Bag 1 bag @ Titrate IV .Q0M [facility] Rx#: [id number] Tube Feeding 226 276 161 Other 280 190 Output: Urine 1270 1100 775 Other: Voiding Method Indwelling Catheter Indwelling Catheter Indwelling Catheter # Bowel Movements 1 ABP, PAP, CO, CI - Last Documented Arterial Blood Pressure 81/78 - Exam Physical Exam: Revealed a 55-year-old white male in no distress. Intubated and mechanically ventilated via tracheostomy. Head: Atraumatic, normocephalic. Tracheostomy is intact. HEENT:[Neck is supple.] [No neck masses.] [No thyromegaly.] [No JVD.] Intact tracheostomy is noted. Chest: Symmetrical chest expansion crackles at the bases bilaterally. Cardiac Exam: [Normal S1 and S2, no S3 gallop, no murmur.] Abdomen: [Soft, nontender, no megaly, no rebound, no guarding, normal bowel sounds.] PEG tube is intact. Extremities: 1+ bipedal edema, no clubbing, no cyanosis. Neurological Exam: Awake, follows instructions in spite of being on propofol. But seems to be generally weak. closes eyes, wiggles toes, close his hands. Psychiatric: Could not assess. Skin: No rashes. - Labs CBC & Chem 7: 01/29/21 04:09 01/29/21 04:09 Labs: Abnormal Lab Results - Last 24 Hours (Table) 01/28/21 01/29/21 01/29/21 Range/Units 18:09 00:53 04:09 WBC 11.1 H (3.8-10.6) k/uL RBC 3.65 L (4.30-5.90) m/uL Hgb 11.4 L (13.0-17.5) gm/dL Hct 33.5 L (39.0-53.0) % Neutrophils # 9.6 H (1.3-7.7) k/uL Lymphocytes # 0.7 L (1.0-4.8) k/uL ABG pO2 (83-108) mmHg ABG HCO3 (21-25) mmol/L ABG Total CO2 (19-24) mmol/L BUN (9-20) mg/dL Glucose (74-99) mg/dL POC Glucose (mg/dL) 177 H 160 H (75-99) mg/dL AST (17-59) U/L ALT (4-49) U/L Alkaline Phosphatase (38-126) U/L Lactate Dehydrogenase (313-618) U/L C-Reactive Protein (<1.0) mg/dL Total Protein (6.3-8.2) g/dL Albumin (3.5-5.0) g/dL 01/29/21 01/29/21 01/29/21 Range/Units 04:09 05:30 12:51 WBC (3.8-10.6) k/uL RBC (4.30-5.90) m/uL Hgb (13.0-17.5) gm/dL Hct (39.0-53.0) % Neutrophils # (1.3-7.7) k/uL Lymphocytes # (1.0-4.8) k/uL ABG pO2 65 L (83-108) mmHg ABG HCO3 26 H (21-25) mmol/L ABG Total CO2 27 H (19-24) mmol/L BUN 39 H (9-20) mg/dL Glucose 156 H (74-99) mg/dL POC Glucose (mg/dL) 197 H (75-99) mg/dL AST 60 H (17-59) U/L ALT 204 H (4-49) U/L Alkaline Phosphatase 158 H (38-126) U/L Lactate Dehydrogenase 1352 H (313-618) U/L C-Reactive Protein 5.5 H (<1.0) mg/dL Total Protein 5.9 L (6.3-8.2) g/dL Albumin 2.8 L (3.5-5.0) g/dL Microbiology - Last 24 Hours (Table) 01/24/21 10:22 Blood Culture - Preliminary Blood No Growth after 120 hours 01/27/21 08:00 Gram Stain - Final Sputum Sputum Culture - Final Mine albicans Assessment and Plan Assessment: Impression: Acute hypoxic respiratory failure secondary to COVID-19 pneumonia, intubated on 01/14, treated initially with Decadron and baricitinib, underwent tracheostomy on 01/23 and PEG tube placement. Developed superinfection requiring antibiotics and antifungal treatment. Sputum cultures have grown Aspergillus and corynebacterium. Patient is now on Zyvox, cefepime, and voriconazole. And he is off baricitinib, ARDS associated with COVID-19 pneumonia Degenerative joint disease Aspergillus fumigatus and sputum Elevated liver enzymes secondary to COVID-19 infection Acute sepsis secondary to pneumonia and suspect septic shock, required pressors for a short period of time. Acute kidney injury secondary to COVID-19 infection/pneumonia. Recommendation: Continue ventilatory support, continue to titrate the FiO2 accordingly. Continue tracheostomy care. Start patient on Seroquel. 50 twice a day. Continue antibiotics and antifungals for now. Continue to monitor inflammatory markers and liver profile. As well as renal profile. Continue enteral feeding and nutritional support. Hemodynamic support if necessary. Continue Lovenox. Continue Decadron. Continue COVID-19 cocktail. Overall prognosis remains relatively guarded, patient remains critically ill. Patient may have to be considered for possible transfer to selective specialty in the next few days. Critical care time is over 30 minutes. Time with Patient: Greater than 30
[2021-01-29] MEDS: SODIUM CHLORIDE 0.9% 1,000 ML IV SCH (14:35)
--- NOTE | 2021-01-29 14:50 | P.PN ---
Subjective Progress Note Date: 01/29/21 HISTORY OF PRESENT ILLNESS This is a 55-year-old male patient of Dr. 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 Patient states he has not been feeling well since Thursday. He said shortness of breath cough is nonproductive along with fever and chills, exertional dyspnea. He denies having any nausea vomiting or diarrhea. He denies any close contacts to known Covid people. He states his temperature is been up to 102.7 at home. He is not vaccinated. Patient presented to [facility] emergency center and found to be febrile at 101.1, heart rate 90, blood pressure 122/80, pulse ox 85% on room air. CBC revealed platelet count of 128. D-dimer 0.82. Sodium 131 otherwise electrolytes and renal function were normal. Blood sugar 147. Troponin negative. Coronavirus PCR positive. Chest x-ray reveals patchy bilateral airspace disease especially in the mid and lower lungs. Correlate for multifocal pneumonia including Covid 19 pneumonia. CTA of the chest was suboptimal study without central acute pulmonary embolism. Bilateral multifocal and confluent groundglass opacities right greater than left and greater in the lower lungs consistent with known Covid 19 infection. Patient is seen today in the emergency center waiting for bed on the [facility] floor, started on Remdesivir, Lovenox, dexamethasone and vitamin supplements, consult with pulmonary medicine. 01/12: Patient is comfortable, however he requires 40 L of oxygen via airvo sats 88-89%, he feels better today compared to his nonrebreather mask yesterday, patient did not sleep well, patient does not have any cough, however he does have shortness of breath. Patient denies any aspiration, appetite is still marginal, patient has insomnia vitals, blood sugar currently is 243, creatinine of 0.98, d-dimer is 0.84, CRP is elevated, LDH is elevated, venous Doppler, shows chronic DVT, left popliteal, in the posterior tibial veins, without any obstruction of flow. No acute DVT identified CTA, shows suboptimal, without central acute pulmonary emboli, has bilateral multifocal and confluent groundglass opacities, right greater than left, lower lobe, consistent with COVID-19 infection and remdesivir discontinued by pulmonary today and is outside of the window for remdesivir 01/13: Patient is on aerosol 14 L, with nonrebreather mask, 15 L, hypoxemia n oted on 88%, worse with coughing, however his nonrebreather mask is very loose. Nurse is worriedwith the turn of events, and requested an ICU transfer, Dr. Canales has seen the patient, and is stable for floor management at this time, patient is not significant tachypnea, and is not tiring out. There is no hemoptysis, and mucus is productive, patient's doing incentive spirometry, up 2 L. 01/14: Patient remains in the intensive care unit, he was intubated this morning as he was desaturating with BiPAP. He has been afebrile, heart rate 73, blood pressure 93/47, pulse ox 90%. CBC is unremarkable. D-dimer 12.04. Sodium 135, creatinine 0.82. LDH 2929, C-reactive protein 5.2. Sputum culture is in progress. He has had good urine output. Chest x-ray reveals no evident convocation from catheters. Bilateral airspace disease. 01/15: Patient remains in the intensive care intubated and on mechanical ventilation with tidal volume 450, FiO2 80, PEEP of 15. Patient has been started on norepinephrine and remains on propofol, heparin drip, Nimbex. Repeat blood work revealed unremarkable CBC. Creatinine 0.88. Capillary blood glucose running between 195 and 215. AST 126, ALT 183, alkaline phosphatase 109. Sputum culture is in progress. Repeat chest x-ray reveals correlate for pneumonia versus edema, ARDS. Patient is continued on vitamin supplements, heparin drip, dexamethasone and Baricitinib. patient remains in intensive care intubated on mechanical ventilator at FiO2 60 percent PEEP respiratory rate of 30 tidal volume 450. Continues to maintain saturations between 94-95% on the current settings. Vitals otherwise stable labs reviewed today WBC is 9.5 hemoglobin 12.4 d-dimer is elevated at 4.98. ABG obtained today suggest pH of 7.4 pO2 53 bicarb 26 on 50% FiO2. Creatinine stable at 0.78 glucose is maintained between 145-190. LDH 1564 CRP is elevated at 4. Patient's inflammatory markers trending down. Patient's vent settings increased to 80% for inadequate oxygenation. Chest x-ray reviewed showed bilateral infiltrate consistent with coronavirus associated pneumonia. Patient continues intubated on propofol 70 bike but patient examined Nimbex 1.25 g daily per minute. Patient to receive 1 dose of Lasix today. Continue to remain on baricitinib day 2 PAtient remains intubaated since . patient continues too remain on assist control, TV 450 , peep 15 and fio2 of 60 %. patient was proned for 16 hours yesterday. CXR was reviewed, COVID pneumonia but no significant change was noted, Will repeat inflammatory markers tomorrow. Vent managment per knife cutter. Patient contines to remain propofol , nimbex. Continue on lovenox, baricitinib, dexamethasone and vit supplement 01/18 patient continues to remain intubated. Covid pneumonia. Is currently on assist control respiratory rate of 30 tidal volume 450 FiO2 of 55% and PEEP of 15. She is currently on heparin drip, propofol and Nimbex. Patient continues to tolerate prone positioning 16 hours overnight. Continues to receive dexamethasone, vitamin supplement, anticoagulation with heparin, baricitinib. Labs are reviewed patient has a hemoglobin stable at 12.2. This morning pH 7.48 PCO2 44 bicarb 32 creatinine 0.73 AST 100 chest x-ray done this morning suggestive of ARDS and pneumonia 01/19 patient continues to remain intubated currently on assist-control vent with a rate of 30 tidal volume 450 FiO2 50 and PEEP of 15. Continues to remain on propofol and Nimbex. Continue heparin drip for anticoagulation. Remains on Baricitinib , vitamin supplementation and dexamethasone. Labs reviewed hemoglobin stable at 12 PTT 53 blood gas obtained today suggest a pH of 7.45 pCO2 46 pO2 69 bicarb 32 BUN 23 creatinine 0.0.8 glucose 122 AST ED ALT 226. inflammation markers ordered for tomorrow last set was obtained on 01/12 01/20 Intubated. Vitals reviewed patient's afebrile pulse of 68 respiratory rate 30 blood pressure. 94/56 oxygen 91% on 50% FiO2. Patient remains on assist control, tidal volume 450 respiratory rate 30 FiO2 of 50% and PEEP of 15. He is currently on Pneumovax at 3 mics per KG per minute propofol at 50 Micro-K to Coumadin and heparin drip. Patient labs are reviewed hemoglobin is 11.7. Arterial blood gas at 50% FiO2 has a pH of 7.47 pO2 of 77 bicarb of 31 BUN 24 creatinine 0.7 LDH [id number] CRP 8.70. CRP is slightly elevated with improvement in LDH. Continue to monitor patient with the goal with treatment on heparin, as dexamethasone, vitamin supplementation and Baricitinib . Blood sugar are well controlled. 01/21: Patient remains intubated and on mechanical ventilation with tidal volume 400, FiO2 40 and PEEP of 16. Patient is on propofol and fentanyl drips. He is on tube feedings to be increased to 26 ML's per hour and tolerating. She he has had 100 250 ML's of urine output per hour. He has been afebrile, heart rate 70, respiratory rate 30, blood pressure 115/64, pulse ox 93%. Repeat blood work reveals WBC 7.4, hemoglobin 12, platelet count 310. D-dimer 1.23. Sodium 134, BUN 24 and creatinine 0.73. Blood sugars are running between 101 and 164. AST 105, ALT 261, alkaline phosphatase 135. LDH 999. C-reactive protein 13.5. Albumin 2.9. Gallbladder ultrasound reveals nonspecific pattern of liver can be seen with hepatic steatitis or hepatocellular disease including hepatitis. The chest x-ray reveals bilateral patchy airspace disease stable. 01/22: Remains in the intensive care unit intubated and on mechanical ventilation with tidal volume 400, FiO2 40, PEEP of 13. Paralytics for pause this morning and patient had significant drop in his pulse ox. He is currently on propofol, fentanyl and Nimbex. He has been afebrile, heart rate 73, blood pressure 99/63, pulse ox 90%. Repeat blood work reveals hemoglobin 11.6. Creatinine 0.81. Blood sugars are running between 98 and 155. AST 85, ALT 260, alkaline phosphatase 132. LDH 954, C-reactive protein 6.8. Repeat chest x-ray reveals bilateral patchy diffuse airspace disease stable. Patient is continued on Baricitinib, Lovenox 40 mg subcu daily, dexamethasone 6 mg IV push and vitamin supplements 01/23: Remains in the intensive care unit on mechanical ventilation with tidal volume 400, FiO2 40 and PEEP of 10. Patient is scheduled for trach and PEG tube placement today. He is currently on propofol, fentanyl and Nimbex. Patient remains afebrile, heart rate 69, respiratory rate 30, blood pressure 120/76, pulse ox 93%. Repeat blood work reveals creatinine is 0.71. WBC 8.3, hemoglobin 12.9. AST 111, ALT 328, alkaline phosphatase 153. Blood sugars have been running between 92 and 193. Sputum culture is showing Corynebacterium species from 01/21 and Aspergillus from 01/14. Repeat chest x-ray reveals bilateral patchy diffuse airspace disease stable. Patient is continued on Baricitinib, Lovenox 40 mg subcu daily, dexamethasone 6 mg IV push and vitamin supplements 01/24: Patient is status post trach and PEG tube done yesterday by Dr. Olivares. Patient is off Nimbex and he has his eyes open but not following commands. Patient's is planning to come in today to see him. He remains on ventilator with tidal volume 300, FiO2 50 and PEEP of 10. Repeat chest x-ray reveals diffuse bilateral infiltrate stable. Antibiotics have been changed to ce fepime and patient started on IV Voriconazole. Patient is continued on dexamethasone, Lovenox and vitamin supplements. WBC 17.2, hemoglobin 12.3. Sodium 130, BUN 21 creatinine 0.83. Total bilirubin 2, AST 54, ALT 248, alkaline phosphatase 132. Capillary blood glucose running between 80 and 193. 01/25: Patient remains in the intensive care unit on mechanical ventilation with tidal volume 400, FiO2 is been increased to 100 and PEEP of 12. Patient is currently on propofol, and was started on vasopressors yesterday and is status post 2 L of IV fluid. Temperature max 101.3. Pulse 87, respiratory rate 33, blood pressure 120/57, pulse ox 95%. director client services is a sinus rhythm. Repeat blood work reveals WBC 8.3, hemoglobin 11. Sodium 136, chloride 108. Creatinine is 0.83. Calcium 7.9. Total bilirubin 2.7, AST 64, ALT 171, alkaline phosphatase 127. LDH 1187. C-reactive protein 32.6. Blood sugars are running between 133 and 173. Urine culture is showing gram-negative bacilli. Blood culture from 01/24 showing no growth at 24 hours. Repeat chest x-ray reveals clear to megaly with bilateral confluent mid to lower lung opacities consistent with: 19 infection redemonstrated. No significant change. Patient is currently on cefepime, Zyvox and there, so for worsening bilateral pulmonary infiltrate, pneumonia. 01/26: Patient remains in intensive care unit on mechanical ventilation with tidal volume 450, FiO2 80 and PEEP of 12. He has been afebrile for greater than 24 hours. Heart rate 80, blood pressure 132/70, pulse ox 86%. He does have leaking around the tracheostomy site. Repeat blood work reveals WBC 8, hemoglobin 11.1, platelet count 291. Sodium 135, potassium 5.8, creatinine 1.15. Total bilirubin 1.8, AST 101, ALT 194, alkaline phosphatase 135. LDH 1156. C-reactive protein 35.7. Blood sugars are running between 154 and 183. Patient will be started on Levemir 10 units at bedtime. He is continued on cef epime, Zyvox and voriconazole. 01/27: Patient remains intubated and on mechanical ventilation with tidal volume 400 50, FiO2 60, PEEP of 12. Plan is to try and wean oxygen down today. Tracheostomy tube has been manipulated and repositioned. He is not requiring vasopressors, currently on propofol. Chest x-ray reveals no significant interval change. Patient has had good urine output with BUN of 37 creatinine 1.28. Other lab work reveals WBC 9.8, hemoglobin 10.7. D-dimer 5.45. Total bilirubin 1.4, AST 153, ALT 282, alkaline phosphatase 138, LDH 1073. C-reactive protein 16.3. ProCalcitonin 10.1. 01/28: Remains in the intensive care unit, intubated and on mechanical ventilation with tidal volume 450, FiO2 of 60 and PEEP of 10. Patient is responsive, follows a few simple commands. He is currently on antibiotics in the form of cefepime, Zyvox and voriconazole. Patient is also continued on Decadron and Lovenox. Repeat blood work reveals WBC of 10, hemoglobin 10.5. D- dimer 5.63. C-reactive protein 6.2. LDH 1025. Total bilirubin 1.3, AST 95, ALT 250. Patient is on tube feedings at goal. He has had good urine output. Social work will start process for discharge to [facility] specialty with anticipation of him being ready by the end of the week. 01/29 patient is currently in the ICU on with tracheostomy with tidal volume 450 FiO2 decreased to 55 this morning with PEEP of 10. Patient is responsive get agitated once propofol is discontinued. Patient is getting of diarrheal ordered every few hours to help with pain control. Currently stays on antibiotic in the form of cefepime, Zyvox and voriconazole. Urine output is appropriate in her on 75 200 mL per hour. Continues to remain on Decadron and Lovenox. He's currently off norepinephrine off Precedex is off fentanyl. Chest x-ray reviewed has bilateral interstitial infiltrate not changed. Labs reviewed, WBC 11.1 h emoglobin is 11.4 R blood gas this morning on 60% FiO2 suggest EF pO2 of 65 bicarb 26 blood sugar controlled ranging from 156-197. Ventilator management per pulmonary as reduce the FiO2 to 55 . Repeat blood gas in 24 hours. Patient initiating Seroquel 50 twice a day for agitation. Discussion with the nurse was made to reduce the Seroquel to 25 twice a day if patient appears to be sedated REVIEW OF SYSTEMS. Unable to obtain due to mechanical ventilation PHYSICAL EXAMINATION Gen: This is a 55-year-old male. He is resting in ICU bed, on mechanical ventilation status post trach and PEG, appears to be comfortable. Full examination deferred to the intensive due to mechanical ventilation and Covid 19. ASSESSMENT AND PLAN 1. Acute hypoxic respiratory failure secondary to Covid 19 pneumonia and possi ble secondary pneumonia, gram-negative and fungal. Patient required intubation 01/14. Patient is status post trach and PEG tube placement 01/[address] Olivares. Patient started on Remdesivir was discontinued by pulmonary, on January 12/2021 started on baricinib 4 mg daily, Baricitinib discontinued on 01/24. Continue cefepime, dexamethasone, Lovenox, Zyvox, voriconazole, continue ventilatory management per knife cutter. 2. Acute respiratory distress syndrome secondary to coronavirus pneumonia. 3. Acute septic shock requiring vasopressors. Patient is status post IV fluid bolus and off vasopressors. 4. History of bilateral pulmonary emboli and DVT in 2015. CTA negative for PE. Not on chronic anticoagulation. 5. Acute transaminitis secondary to Covid 19. 6. Generalized osteoarthritis. 7. Degenerative changes in the cervical spine status post fusion of C5-6. 8. 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 9. Elevated liver function tests, transaminitis. 10. Hyperglycemia secondary to steroids. Patient is on NovoLog scale, Levemir 10 units at bedtime added. 11. Severe hyperkalemia status post IV push calcium gluconate, dextrose and regular insulin, IV push sodium bicarb. 12. GI prophylaxis. Protonix. 13. DVT prophylaxis. Lovenox. 14 acute agitation on ventilator initiating Seroquel 50 twice a day per knife cutter. Probably to continue on Seroquel 50 twice a day at this moment. With plan to taper off Seroquel to bedtime. DISCHARGE PLAN Home. vs IP rehab . will expect to stay here for covid protracted length of time Objective - Vital Signs Vital signs: Vital Signs Temp 99.2 F 01/29/21 08:00 Pulse 67 01/29/21 08:00 Resp 35 H 01/29/21 08:00 BP 136/73 01/29/21 08:00 Pulse Ox 93 L 01/29/21 08:00 Intake & Output 01/28/21 01/29/21 01/29/21 18:59 06:59 18:59 Intake Total 2606.705 7334.864 572.861 Output Total 1270 1100 345 Balance 901.517 7898.864 227.861 Weight 104.7 kg 107 kg Intake: IV 552 552 92 Pressure Bags 72 72 12 Sodium Chloride 0.9% 1, 480 480 80 000 ml @ 20 mls/hr IV . Q24H [facility]AD[facility] Rx#:[id number] Intake, IV Titration 436.722 2921.864 274.861 Amount Cefepime 2 gm In Sodium 100 100 Chloride 0.9% 100 ml @ 25 mls/hr IVPB Q8HR [facility] Rx# :[id number] Linezolid 600 mg In 1200 Dextrose/Water 1 300ml. bag @ 150 mls/hr IVPB Q12H [facility] Rx#:[id number] Voriconazole 200 mg In 100 100 Sodium Chloride 0.9% 100 ml @ 125 mls/hr IVPB Q12HR [facility] Rx#:[id number] propofoL 1,000 mg In 338.978 293.864 74.861 Empty Bag 1 bag @ Titrate IV .Q0M [facility] Rx#: [id number] Tube Feeding 226 276 46 Other 280 160 Output: Urine 1270 1100 345 Other: Voiding Method Indwelling Catheter Indwelling Catheter Indwelling Catheter # Bowel Movements 1 ABP, PAP, CO, CI - Last Documented Arterial Blood Pressure 77/62 - Labs CBC & Chem 7: 01/29/21 04:09 01/29/21 04:09 Labs: Abnormal Lab Results - Last 24 Hours (Table) 01/28/21 01/28/21 01/29/21 Range/Units 12:34 18:09 00:53 WBC (3.8-10.6) k/uL RBC (4.30-5.90) m/uL Hgb (13.0-17.5) gm/dL Hct (39.0-53.0) % Neutrophils # (1.3-7.7) k/uL Lymphocytes # (1.0-4.8) k/uL ABG pO2 (83-108) mmHg ABG HCO3 (21-25) mmol/L ABG Total CO2 (19-24) mmol/L BUN (9-20) mg/dL Glucose (74-99) mg/dL POC Glucose (mg/dL) 174 H 177 H 160 H (75-99) mg/dL AST (17-59) U/L ALT (4-49) U/L Alkaline Phosphatase (38-126) U/L Lactate Dehydrogenase (313-618) U/L C-Reactive Protein (<1.0) mg/dL Total Protein (6.3-8.2) g/dL Albumin (3.5-5.0) g/dL 01/29/21 01/29/21 01/29/21 Range/Units 04:09 04:09 05:30 WBC 11.1 H (3.8-10.6) k/uL RBC 3.65 L (4.30-5.90) m/uL Hgb 11.4 L (13.0-17.5) gm/dL Hct 33.5 L (39.0-53.0) % Neutrophils # 9.6 H (1.3-7.7) k/uL Lymphocytes # 0.7 L (1.0-4.8) k/uL ABG pO2 65 L (83-108) mmHg ABG HCO3 26 H (21-25) mmol/L ABG Total CO2 27 H (19-24) mmol/L BUN 39 H (9-20) mg/dL Glucose 156 H (74-99) mg/dL POC Glucose (mg/dL) (75-99) mg/dL AST 60 H (17-59) U/L ALT 204 H (4-49) U/L Alkaline Phosphatase 158 H (38-126) U/L Lactate Dehydrogenase 1352 H (313-618) U/L C-Reactive Protein 5.5 H (<1.0) mg/dL Total Protein 5.9 L (6.3-8.2) g/dL Albumin 2.8 L (3.5-5.0) g/dL Microbiology - Last 24 Hours (Table) 01/27/21 08:00 Gram Stain - Final Sputum Sputum Culture - Final Mine albicans 01/24/21 10:22 Blood Culture - Preliminary Blood No Growth after 96 hours
[2021-01-29] MEDS ORDERED: LIDOCAINE 1% INJ 10MG/ML (20 ML MDV) SQ ONE (17:06)
--- NOTE | 2021-01-29 17:40 | XR ---
EXAMINATION TYPE: XR chest 1V confirm line [facility] DATE OF EXAM: 01/29/2021 COMPARISON: NONE HISTORY: Line placement TECHNIQUE: 2 views FINDINGS: There is pulmonary interstitial and airspace edema. There is tracheostomy tube. There is le ft subclavian catheter with tip in the right atrium. There are chest leads. There is right subclavian catheter with tip in the superior vena cava. IMPRESSION: Pulmonary interstitial and airspace edema without change compared to yesterday.
[2021-01-29 18:20] LABS: Glucose,Whole Blood 161 mg/dL (75-99)
[2021-01-29] MEDS: INSULIN DETEMIR (LEVEMIR) 100 UNIT/ML SYR SQ SCH (21:17)
[2021-01-29] MEDS ORDERED: PROPOFOL 10 MG/ML 100 ML VIAL IV ONE (23:17)
[2021-01-30 02:16] LABS: Glucose,Whole Blood 152 mg/dL (75-99)
[2021-01-30] MEDS ORDERED: PROPOFOL 10 MG/ML 100 ML VIAL IV ONE (02:37)
[2021-01-30] MEDS ORDERED: HYDROmorphone 1 MG/ML 1 ML SYRINGE ONE (02:37)
[2021-01-30] MEDS: DEXMEDETOMIDINE/0.9% NACL(PMX) 400 MCG in EMPTY BAG 1 BAG IV SCH ×2 (04:22→10:31)
[2021-01-30] MEDS: ARTIFICIAL TEARS-HYPROMELLOSE DROPS 15 ML BTL BOTH EYES SCH ×2 (04:28→05:28)
[2021-01-30] MEDS: INSULIN ASPART (NovoLOG) 100 UNIT/ML VIAL SQ SCH ×4 (05:29→17:49)
[2021-01-30] MEDS: CEFEPIME 2 GM in SODIUM CHLORIDE 0.9% 100 ML IVPB SCH ×2 (05:30→08:43)
[2021-01-30 05:46] LABS: ABG Base Excess 2.1 mmol/L; ABG HCO3 27 mmol/L (21-25); ABG Oxygen Saturation 93.9 % (94-97); ABG PCO2 43 mmHg (35-45); ABG PH 7.41 (7.35-7.45); ABG PO2 65 mmHg (83-108); ABG TCO2 28 mmol/L (19-24)
[2021-01-30 05:49] LABS: HCT 32.9 % (39.0-53.0); HGB 10.6 gm/dL (13.0-17.5); Hypochromasia Slight; MCH 31.2 pg (25.0-35.0); MCHC 32.3 g/dL (31.0-37.0); MCV 96.6 fL (80.0-100.0); Platelet Count 285 k/uL (150-450); WBC 9.2 k/uL (3.8-10.6)
[2021-01-30 06:02] LABS: Albumin 2.6 g/dL (3.5-5.0); Calcium 8.4 mg/dL (8.4-10.2); Potassium 4.1 mmol/L (3.5-5.1); Total Bilirubin 0.8 mg/dL (0.2-1.3); Total Protein 5.4 g/dL (6.3-8.2)
[2021-01-30 06:12] LABS: Allen Test Performed? no
[2021-01-30 06:34] LABS: Glucose,Whole Blood 158 mg/dL (75-99)
[2021-01-30] MEDS: SODIUM CHLORIDE 0.9% 1,000 ML IV SCH (07:00)
[2021-01-30 08:37] LABS: Band Neutrophils % 5 %; Eosinophils # (M) 0.64 k/uL (0-0.7); Lymphocytes # (M) 0.74 k/uL (1.0-4.8); Metamyelocytes # (M) 0.37 k/uL (0); Metamyelocytes % 4 %; Monocytes # (M) 0.37 k/uL (0-1.0); Myelocytes % 12 %; Neutrophils % (M) 63 %; Nucleated Red Blood Cells 0 /100 WBC (0-0); Total Cells Counted 200
[2021-01-30] MEDS: NOREPINEPHRINE 4 MG in SODIUM CHLORIDE 0.9% 250 ML IV SCH ×2 (08:37→22:56)
[2021-01-30] MEDS: ASCORBIC ACID 500 MG TAB PO SCH (08:43)
[2021-01-30] MEDS: CHOLECALCIFEROL 25 MCG (1000 IU) TABLET PO SCH (08:43)
[2021-01-30] MEDS: CHLORHEXIDINE GLUCONATE 15 ML CUP MUCOUS MEM SCH ×2 (08:44→22:56)
[2021-01-30] MEDS: ZINC SULFATE 220 MG CAP PO SCH (08:44)
[2021-01-30] MEDS: QUEtiapine 50 MG TAB PO SCH ×2 (08:44→22:55)
[2021-01-30] MEDS: ENOXAPARIN 40 MG/0.4 ML SYRINGE SQ SCH (08:44)
[2021-01-30] MEDS: PANTOPRAZOLE 40 MG/10 ML VIAL IVP SCH (08:44)
[2021-01-30] MEDS: HYDROmorphone 1 MG/ML 1 ML SYRINGE IVP PRN ×5 (08:44→23:14)
[2021-01-30] MEDS: LACTULOSE 20 GM/30 ML CUP PO SCH (08:45)
[2021-01-30] MEDS: VORICONAZOLE 200 MG in SODIUM CHLORIDE 0.9% 100 ML IVPB SCH ×2 (08:46→22:55)
[2021-01-30] MEDS: DEXAMETHASONE SOD PHOSPHATE 10 MG/ML 1 ML VIAL IVP SCH ×2 (08:51→22:56)
--- NOTE | 2021-01-30 08:55 | XR ---
EXAMINATION TYPE: XR chest 1V portable DATE OF EXAM: 01/30/2021 COMPARISON: 01/29/2021 HISTORY: Shortness of breath TECHNIQUE: Single frontal view of the chest is obtained. FINDINGS: Tracheostomy tube and central line with right-sided PICC line noted. Diffuse interstitial and alveolar infiltrate seen. Heart size stable. No pneumothorax. IMPRESSION: Stable bilateral diffuse infiltrates
[2021-01-30] MEDS: LINEZOLID 600 MG in DEXTROSE/WATER 1 300ML.BAG IVPB SCH ×2 (11:15→22:56)
[2021-01-30 12:03] LABS: Glucose,Whole Blood 142 mg/dL (75-99)
--- NOTE | 2021-01-30 12:06 | P.PN ---
Subjective Progress Note Date: 01/30/21 Principal diagnosis: Acute hypoxic respiratory failure secondary to COVID-19 pneumonia 01/27/2021, the patient's condition has a more stabilized. Since yesterday, the patient was taken off paralytics and the patient is currently on propofol running at 75 mcg/kg per minute. He seems to be quite intense a mechanical ventilator. He is also arousable with stimulation. He does have some occasional cough. No spontaneous eye opening. He is quite synchronous with the mechanical ventilator. I have him on VC plus mode at the rate of 22 with a tidal volume of 450 and PEEP of 12 and FiO2 is currently down to 60%. Chest x- ray shows bilateral pulmonary infiltrates, slightly improved compared to yesterday. He was having significant amount of air leak around his tracheostomy tube and we were able to manage that with some had manipulation and positioning of the tracheostomy tube. The patient has a #[address] tube in place. On today's evaluation, the leaks are minimal. His peak airway pressures around 33. 70 pressures around 30. The patient had a blood gas today that showed a pH of 7.39 with a pCO2 of 45 and a pO2 of 61 and this was on FiO2 of 60%. The sputum sample is positive for Aspergillus and charity bacterium and the patient remains on a broad-spectrum antibiotics including Zyvox, voriconazole, and IV cefepime. 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 Meanwhile, the patient is hemodynamically stable. I'm a bit concerned about his kidney function. Creatinine today was up to 1.28 and the patient is producing adequate amount of urine output in the order of 50-60 mL an hour. In terms of his inflammatory markers, the patient has a d-dimer of 5.45 and LDH is 1073, improved compared to yesterday and his CRP level is down to 16.3. Meanwhile, he is still being treated with Decadron at a dose of 60 mg IV every 24 hours. He was taken off the Baricitinib several days ago. He remains on Lovenox for DVT prophylaxis at a dose of 40 mg subcu every 24 hours. He remains on Levemir insulin 10 units a day in addition to NovoLog sliding scale coverage. No other significant events overnight. He did have a bout of hyperkalemia and the potassium level was as high as 6.2 and this was managed appropriately and the potassium level is improved. Hemodynamically stable. No pressors. Liver function tests have been abnormal yet stable. The patient has not produced any bowel movement activity at. The patient was started on lactulose. Reevaluated today on 01/28/2021, patient remains in the ICU, intubated and mechanically ventilated. Patient is on volume control plus the rate of 20 to tell volume 450 FiO2 60% PEEP of 10. ABG showed a pO2 of 65 pCO2 39 pH of 7.42 on 50% FiO2. Remains on propofol at 55 mcg/kg/m, not requiring any other sedatives, he is off paralytics. Patient is status post tracheostomy and PEG tube placement on 01/23. Patient is on enteral feeding using vital AF at 1 3 mL per hour. He is also on Decadron at 60 mg IV push twice a day. Patient is arousable, follows very simple instructions. Chest x-ray continues to show bilateral Infiltrates, right more so than left. Tracheostomy seems to be intact. ABC is relatively normal d-dimer is 5.63 electrolytes are normal , BUN is 38 creatinine 1.18 liver enzymes are a bit elevated ALT of 250 AST of 95 LDH is 1025 C-reactive protein 6.2. Patient remains on the COVID-19 cocktail, he is also on voriconazole. Zyvox. Decadron 6 mg IV push twice a day. Cefepime. Reevaluated today on 01/29/2021, remains intubated and mechanically ventilated. Patient is on volume control plus of 450, rate 22 FiO2 60% PEEP of 10 ABG showed a pO2 of 65 pCO2 of 37 pH of 7.45. Hence no changes were made in the ventilator settings. LDH remains elevated at 135 to propofol is at 55, patient is off norepinephrine, off Precedex, he is off fentanyl, and he is doing relatively well considering his overall picture, patient had intermittent episodes of a gitation and restlessness, and I have recommended we start the patient on Seroquel 50 mg twice a day. And hopefully can titrate the upper fall down and possibly discontinue. Chest x-ray continues to show bilateral interstitial infiltrates, not much of the changes noted on the chest x-ray. WBC count today is 11.1 hemoglobin 11.4. Basic metabolic profile is normal BUN is 39 creatinine is 1.05. LDH is noted to be a bit elevated today compared to yesterday 1352. Reevaluated today on 01/30/2021, remains in the ICU, intubated, patient is status post tracheostomy and PEG tube placement, he is on assist control rate of 22 volume control +450 FiO2 50% PEEP is at 10. Patient remains on propofol, he is at 50 mcg/kg/m, arousable, follows very simple instructions, hence I plan to discontinue propofol altogether and switch the patient to Precedex. Patient remains on enteral feedings, tolerating enteral feedings well, patient is not requiring any pressors, he is hemodynamically stable. Chest x-ray continues to show bilateral infiltrates. CBC today showed the reset of 9.2 hemoglobin 10.6. ABG today showed a pO2 of 65 pCO2 of 43 pH of 7.41 this is on a 55% FiO2. Basic metabolic profile is normal renal profile is improved with BUN 34 creatinine 1.16. Objective - Vital Signs Vital signs: Vital Signs Temp 98.2 F 01/30/21 08:00 Pulse 85 01/30/21 11:00 Resp 26 H 01/30/21 11:00 BP 110/57 01/29/21 17:00 Pulse Ox 97 01/30/21 11:00 Intake & Output 01/29/21 01/30/21 01/30/21 18:59 06:59 18:59 Intake Total 7124.750 4335.000 649.966 Output Total 1180 1230 440 Balance 568.269 180.000 209.966 Weight 107.5 kg 107.5 kg Intake: IV 552 952 330 Cefepime 2 gm In Sodium 100 Chloride 0.9% 100 ml @ 25 mls/hr IVPB Q8HR [facility] Rx# :[id number] Linezolid 600 mg In 300 Dextrose/Water 1 300ml. bag @ 150 mls/hr IVPB Q12H [facility] Rx#:[id number] Pressure Bags 72 72 30 Sodium Chloride 0.9% 1, 480 480 100 000 ml @ 20 mls/hr IV . Q24H [facility] Rx#:[id number] Voriconazole 200 mg In 100 100 Sodium Chloride 0.9% 100 ml @ 125 mls/hr IVPB Q12HR [facility] Rx#:[id number] Intake, IV Titration 565.269 200.000 67.966 Amount Cefepime 2 gm In Sodium 200 Chloride 0.9% 100 ml @ 25 mls/hr IVPB Q8HR [facility] Rx# :[id number] Dexmedetomidine/0.9% NaCl 3.766 (Pmx) 400 mcg In Empty Bag 1 bag @ 0.2 MCG/KG/HR 5.135 mls/hr IV .[id number] [facility] Rx#:[id number] Voriconazole 200 mg In 100 Sodium Chloride 0.9% 100 ml @ 125 mls/hr IVPB Q12HR [facility] Rx#:[id number] propofoL 1,000 mg In 265.269 200.000 64.2 Empty Bag 1 bag @ Titrate IV .Q0M [facility] Rx#: [id number] Tube Feeding 276 138 92 Other 355 120 160 Output: Urine 1180 1230 440 Other: Voiding Method Indwelling Catheter Indwelling Catheter Indwelling Catheter ABP, PAP, CO, CI - Last Documented Arterial Blood Pressure 167/81 - Exam Physical Exam: Revealed a 55-year-old white male in no distress. Intubated and mechanically ventilated via tracheostomy. Head: Atraumatic, normocephalic. Tracheostomy is intact. HEENT:[Neck is supple.] [No neck masses.] [No thyromegaly.] [No JVD.] Intact tracheostomy is noted. Chest: Symmetrical chest expansion crackles at the bases bilaterally. Cardiac Exam: [Normal S1 and S2, no S3 gallop, no murmur.] Abdomen: [Soft, nontender, no megaly, no rebound, no guarding, normal bowel sounds.] PEG tube is intact. Extremities: 1+ bipedal edema, no clubbing, no cyanosis. Neurological Exam: Awake, follows instructions in spite of being on propofol. But seems to be generally weak. closes eyes, wiggles toes, close his hands. Patient is significantly weak. Psychiatric: Depressed mood, blunt affect, appropriate mental status considering the patient is on propofol at 50 mcg/kg/m. Skin: No rashes. - Labs CBC & Chem 7: 01/30/21 04:42 01/30/21 04:42 Labs: Abnormal Lab Results - Last 24 Hours (Table) 01/29/21 01/29/21 01/30/21 Range/Units 12:51 18:17 00:02 RBC (4.30-5.90) m/uL Hgb (13.0-17.5) gm/dL Hct (39.0-53.0) % Lymphocytes # (Manual) (1.0-4.8) k/uL Metamyelocytes # (Man) (0) k/uL Myelocytes # (Manual) (0) k/uL ABG pO2 (83-108) mmHg ABG HCO3 (21-25) mmol/L ABG Total CO2 (19-24) mmol/L ABG O2 Saturation (94-97) % Chloride (98-107) mmol/L BUN (9-20) mg/dL Glucose (74-99) mg/dL POC Glucose (mg/dL) 197 H 161 H 152 H (75-99) mg/dL ALT (4-49) U/L Alkaline Phosphatase (38-126) U/L Total Protein (6.3-8.2) g/dL Albumin (3.5-5.0) g/dL 01/30/21 01/30/21 01/30/21 Range/Units 04:42 04:42 05:44 RBC 3.40 L (4.30-5.90) m/uL Hgb 10.6 L (13.0-17.5) gm/dL Hct 32.9 L (39.0-53.0) % Lymphocytes # (Manual) 0.74 L (1.0-4.8) k/uL Metamyelocytes # (Man) 0.37 H (0) k/uL Myelocytes # (Manual) 1.10 H (0) k/uL ABG pO2 65 L (83-108) mmHg ABG HCO3 27 H (21-25) mmol/L ABG Total CO2 28 H (19-24) mmol/L ABG O2 Saturation 93.9 L (94-97) % Chloride 108 H (98-107) mmol/L BUN 34 H (9-20) mg/dL Glucose 171 H (74-99) mg/dL POC Glucose (mg/dL) (75-99) mg/dL ALT 140 H (4-49) U/L Alkaline Phosphatase 131 H (38-126) U/L Total Protein 5.4 L (6.3-8.2) g/dL Albumin 2.6 L (3.5-5.0) g/dL 01/30/21 Range/Units 06:31 RBC (4.30-5.90) m/uL Hgb (13.0-17.5) gm/dL Hct (39.0-53.0) % Lymphocytes # (Manual) (1.0-4.8) k/uL Metamyelocytes # (Man) (0) k/uL Myelocytes # (Manual) (0) k/uL ABG pO2 (83-108) mmHg ABG HCO3 (21-25) mmol/L ABG Total CO2 (19-24) mmol/L ABG O2 Saturation (94-97) % Chloride (98-107) mmol/L BUN (9-20) mg/dL Glucose (74-99) mg/dL POC Glucose (mg/dL) 158 H (75-99) mg/dL ALT (4-49) U/L Alkaline Phosphatase (38-126) U/L Total Protein (6.3-8.2) g/dL Albumin (3.5-5.0) g/dL Microbiology - Last 24 Hours (Table) 01/24/21 10:22 Blood Culture - Preliminary Blood No Growth after 120 hours 01/27/21 08:00 Gram Stain - Final Sputum Sputum Culture - Final Mine albicans Assessment and Plan Assessment: Impression: Acute hypoxic respiratory failure secondary to COVID-19 pneumonia, intubated on 01/14, treated initially with Decadron and baricitinib, underwent tracheostomy on 01/23 and PEG tube placement. Developed superinfection requiring antibiotics and antifungal treatment. Sputum cultures have grown Aspergillus and corynebacterium. Patient is now on Zyvox, cefepime, and voriconazole. And he is off baricitinib, ARDS associated with COVID-19 pneumonia Degenerative joint disease Aspergillus fumigatus and sputum Elevated liver enzymes secondary to COVID-19 infection Acute sepsis secondary to pneumonia and suspect septic shock, required pressors for a short period of time. Acute kidney injury secondary to COVID-19 infection/pneumonia. Suspect critical illness polyneuropathy Patient will need a long course of rehabilitation. Recommendation: Continue ventilatory support, continue to titrate the FiO2 accordingly. Continue tracheostomy care. Continue Seroquel. Hopefully we can discontinue propofol today and start patient on Precedex. Continue antibiotics and antifungals for now. Continue to monitor inflammatory markers and liver profile. As well as renal profile. Continue enteral feeding and nutritional support. Continue Lovenox. Continue Decadron. Continue COVID-19 cocktail. Overall prognosis remains relatively guarded Will consult select care specialty on this patient, and hopefully arrange for transfer the patient to selective specialty in the next couple of days. Nonetheless, the patient remains critically ill. Critical care time is over 30 minutes. Time with Patient: Greater than 30
--- NOTE | 2021-01-30 12:41 | P.PN ---
Subjective Progress Note Date: 01/30/21 CHIEF COMPLAINT: COVID-19 pneumonia HISTORY OF PRESENT ILLNESS: Patient in the ICU and requiring mechanical ventilation. Patient is status post trach and PEG tube placement. Patient is able to maintain his tidal volumes. He is still having some leaking of air from the trach site. He is also tolerating his tube feeds. No residual. He is having bowel movements. Patient was weaned off sedation. Afebrile. WBC 9.2 Hgb 10.6 Patient seen and examined with Dr. Olivares PHYSICAL EXAM: VITAL SIGNS: Reviewed. GENERAL: Well-developed in no acute distress. HEENT: No sclera icterus. Extraocular movements grossly intact. Moist buccal mucosa. Head is atraumatic, normocephalic. Tracheostomy site clean dry and intact ABDOMEN: Soft. Nondistended. Nontender. PEG tube site clean dry and intact NEUROLOGIC: Awake ASSESSMENT: 1. Acute hypoxic respiratory failure secondary to COVID-19 pneumonia status post tracheostomy placement 2. Severe protein calorie malnutrition status post PEG tube placement PLAN: -Continue to monitor tracheostomy -Continue ICU management -Continue supportive care Physician Ruling Technician note has been reviewed by physician. Signing provider agrees with the documented findings, assessment, and plan of care. Objective - Vital Signs Vital signs: Vital Signs Temp 98.2 F 01/30/21 08:00 Pulse 85 01/30/21 11:00 Resp 26 H 01/30/21 11:00 BP 110/57 01/29/21 17:00 Pulse Ox 97 01/30/21 11:00 Intake & Output 01/29/21 01/30/21 01/30/21 18:59 06:59 18:59 Intake Total 5806.920 1161.000 656.899 Output Total 1180 1230 440 Balance 568.269 180.000 216.899 Weight 107.5 kg 107.5 kg Intake: IV 552 952 330 Cefepime 2 gm In Sodium 100 Chloride 0.9% 100 ml @ 25 mls/hr IVPB Q8HR [facility] Rx# :[id number] Linezolid 600 mg In 300 Dextrose/Water 1 300ml. bag @ 150 mls/hr IVPB Q12H [facility] Rx#:[id number] Pressure Bags 72 72 30 Sodium Chloride 0.9% 1, 480 480 100 000 ml @ 20 mls/hr IV . Q24H [facility] Rx#:[id number] Voriconazole 200 mg In 100 100 Sodium Chloride 0.9% 100 ml @ 125 mls/hr IVPB Q12HR [facility] Rx#:[id number] Intake, IV Titration 565.269 200.000 74.899 Amount Cefepime 2 gm In Sodium 200 Chloride 0.9% 100 ml @ 25 mls/hr IVPB Q8HR [facility] Rx# :[id number] Dexmedetomidine/0.9% NaCl 10.699 (Pmx) 400 mcg In Empty Bag 1 bag @ 0.2 MCG/KG/HR 5.135 mls/hr IV .[id number] [facility] Rx#:[id number] Voriconazole 200 mg In 100 Sodium Chloride 0.9% 100 ml @ 125 mls/hr IVPB Q12HR [facility] Rx#:[id number] propofoL 1,000 mg In 265.269 200.000 64.2 Empty Bag 1 bag @ Titrate IV .Q0M [facility] Rx#: [id number] Tube Feeding 276 138 92 Other 355 120 160 Output: Urine 1180 1230 440 Other: Voiding Method Indwelling Catheter Indwelling Catheter Indwelling Catheter ABP, PAP, CO, CI - Last Documented Arterial Blood Pressure 167/81 - Labs CBC & Chem 7: 01/30/21 04:42 01/30/21 04:42 Labs: Abnormal Lab Results - Last 24 Hours (Table) 01/29/21 01/29/21 01/30/21 Range/Units 12:51 18:17 00:02 RBC (4.30-5.90) m/uL Hgb (13.0-17.5) gm/dL Hct (39.0-53.0) % Lymphocytes # (Manual) (1.0-4.8) k/uL Metamyelocytes # (Man) (0) k/uL Myelocytes # (Manual) (0) k/uL ABG pO2 (83-108) mmHg ABG HCO3 (21-25) mmol/L ABG Total CO2 (19-24) mmol/L ABG O2 Saturation (94-97) % Chloride (98-107) mmol/L BUN (9-20) mg/dL Glucose (74-99) mg/dL POC Glucose (mg/dL) 197 H 161 H 152 H (75-99) mg/dL ALT (4-49) U/L Alkaline Phosphatase (38-126) U/L Total Protein (6.3-8.2) g/dL Albumin (3.5-5.0) g/dL 01/30/21 01/30/21 01/30/21 Range/Units 04:42 04:42 05:44 RBC 3.40 L (4.30-5.90) m/uL Hgb 10.6 L (13.0-17.5) gm/dL Hct 32.9 L (39.0-53.0) % Lymphocytes # (Manual) 0.74 L (1.0-4.8) k/uL Metamyelocytes # (Man) 0.37 H (0) k/uL Myelocytes # (Manual) 1.10 H (0) k/uL ABG pO2 65 L (83-108) mmHg ABG HCO3 27 H (21-25) mmol/L ABG Total CO2 28 H (19-24) mmol/L ABG O2 Saturation 93.9 L (94-97) % Chloride 108 H (98-107) mmol/L BUN 34 H (9-20) mg/dL Glucose 171 H (74-99) mg/dL POC Glucose (mg/dL) (75-99) mg/dL ALT 140 H (4-49) U/L Alkaline Phosphatase 131 H (38-126) U/L Total Protein 5.4 L (6.3-8.2) g/dL Albumin 2.6 L (3.5-5.0) g/dL 01/30/21 01/30/21 Range/Units 06:31 11:49 RBC (4.30-5.90) m/uL Hgb (13.0-17.5) gm/dL Hct (39.0-53.0) % Lymphocytes # (Manual) (1.0-4.8) k/uL Metamyelocytes # (Man) (0) k/uL Myelocytes # (Manual) (0) k/uL ABG pO2 (83-108) mmHg ABG HCO3 (21-25) mmol/L ABG Total CO2 (19-24) mmol/L ABG O2 Saturation (94-97) % Chloride (98-107) mmol/L BUN (9-20) mg/dL Glucose (74-99) mg/dL POC Glucose (mg/dL) 158 H 142 H (75-99) mg/dL ALT (4-49) U/L Alkaline Phosphatase (38-126) U/L Total Protein (6.3-8.2) g/dL Albumin (3.5-5.0) g/dL Microbiology - Last 24 Hours (Table) 01/24/21 10:22 Blood Culture - Preliminary Blood No Growth after 120 hours 01/27/21 08:00 Gram Stain - Final Sputum Sputum Culture - Final Mine albicans
--- NOTE | 2021-01-30 13:25 | IR ---
PICC LINE PLACEMENT: HISTORY: Infection requiring long-term antibiotic therapy PROCEDURE: Ultrasound guidance of PICC line placement. COMPLICATIONS: None ANESTHESIA: 1. 1% Lidocaine locally. FINDINGS/TECHNIQUE: The procedure was explained to the patient. The risks, complications, benefits and alternatives were discussed and any questions were answered. Informed consent was obtained. The patient was placed supine on the fluoroscopic table and prepped and draped in the usual sterile fash ion. Utilizing a 21 gauge needle and sonographic guidance, access in the right basilic vein was ach ieved and there is placement of a 0.018 guidewire. The vein is patent. A 5-F. sheath was placed ove r the guidewire. The guidewire and dilator were removed and a 5-F. Double lumen PICC line was placed through the sheath with the chest x-ray confirming the tip at the level of the SVC. The sheath was removed, the catheter was flushed and sutured into position. The patient was stable throughout the p rocedure and remained stable upon discharge from the Department of Radiology. The vein puncture was patent under ultrasound. A duval scale image was obtained to document patency of the vein punctured. All elements of the maximal barrier technique were utilized. IMPRESSION: 1. Successful PICC line placement under ultrasound performed bedside within the ICU.
--- NOTE | 2021-01-30 14:52 | P.PN ---
Subjective Progress Note Date: 01/30/21 HISTORY OF PRESENT ILLNESS This is a 55-year-old male patient of Dr. 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 Patient states he has not been feeling well since Thursday. He said shortness of breath cough is nonproductive along with fever and chills, exertional dyspnea. He denies having any nausea vomiting or diarrhea. He denies any close contacts to known Covid people. He states his temperature is been up to 102.7 at home. He is not vaccinated. Patient presented to [facility] emergency center and found to be febrile at 101.1, heart rate 90, blood pressure 122/80, pulse ox 85% on room air. CBC revealed platelet count of 128. D-dimer 0.82. Sodium 131 otherwise electrolytes and renal function were normal. Blood sugar 147. Troponin negative. Coronavirus PCR positive. Chest x-ray reveals patchy bilateral airspace disease especially in the mid and lower lungs. Correlate for multifocal pneumonia including Covid 19 pneumonia. CTA of the chest was suboptimal study without central acute pulmonary embolism. Bilateral multifocal and confluent groundglass opacities right greater than left and greater in the lower lungs consistent with known Covid 19 infection. Patient is seen today in the emergency center waiting for bed on the [facility] floor, started on Remdesivir, Lovenox, dexamethasone and vitamin supplements, consult with pulmonary medicine. 01/12: Patient is comfortable, however he requires 40 L of oxygen via airvo sats 88-89%, he feels better today compared to his nonrebreather mask yesterday, patient did not sleep well, patient does not have any cough, however he does have shortness of breath. Patient denies any aspiration, appetite is still marginal, patient has insomnia vitals, blood sugar currently is 243, creatinine of 0.98, d-dimer is 0.84, CRP is elevated, LDH is elevated, venous Doppler, shows chronic DVT, left popliteal, in the posterior tibial veins, without any obstruction of flow. No acute DVT identified CTA, shows suboptimal, without central acute pulmonary emboli, has bilateral multifocal and confluent groundglass opacities, right greater than left, lower lobe, consistent with COVID-19 infection and remdesivir discontinued by pulmonary today and is outside of the window for remdesivir 01/13: Patient is on aerosol 14 L, with nonrebreather mask, 15 L, hypoxemia n oted on 88%, worse with coughing, however his nonrebreather mask is very loose. Nurse is worriedwith the turn of events, and requested an ICU transfer, Dr. Canales has seen the patient, and is stable for floor management at this time, patient is not significant tachypnea, and is not tiring out. There is no hemoptysis, and mucus is productive, patient's doing incentive spirometry, up 2 L. 01/14: Patient remains in the intensive care unit, he was intubated this morning as he was desaturating with BiPAP. He has been afebrile, heart rate 73, blood pressure 93/47, pulse ox 90%. CBC is unremarkable. D-dimer 12.04. Sodium 135, creatinine 0.82. LDH 2929, C-reactive protein 5.2. Sputum culture is in progress. He has had good urine output. Chest x-ray reveals no evident convocation from catheters. Bilateral airspace disease. 01/15: Patient remains in the intensive care intubated and on mechanical ventilation with tidal volume 450, FiO2 80, PEEP of 15. Patient has been started on norepinephrine and remains on propofol, heparin drip, Nimbex. Repeat blood work revealed unremarkable CBC. Creatinine 0.88. Capillary blood glucose running between 195 and 215. AST 126, ALT 183, alkaline phosphatase 109. Sputum culture is in progress. Repeat chest x-ray reveals correlate for pneumonia versus edema, ARDS. Patient is continued on vitamin supplements, heparin drip, dexamethasone and Baricitinib. patient remains in intensive care intubated on mechanical ventilator at FiO2 60 percent PEEP respiratory rate of 30 tidal volume 450. Continues to maintain saturations between 94-95% on the current settings. Vitals otherwise stable labs reviewed today WBC is 9.5 hemoglobin 12.4 d-dimer is elevated at 4.98. ABG obtained today suggest pH of 7.4 pO2 53 bicarb 26 on 50% FiO2. Creatinine stable at 0.78 glucose is maintained between 145-190. LDH 1564 CRP is elevated at 4. Patient's inflammatory markers trending down. Patient's vent settings increased to 80% for inadequate oxygenation. Chest x-ray reviewed showed bilateral infiltrate consistent with coronavirus associated pneumonia. Patient continues intubated on propofol 70 bike but patient examined Nimbex 1.25 g daily per minute. Patient to receive 1 dose of Lasix today. Continue to remain on baricitinib day 2 PAtient remains intubaated since . patient continues too remain on assist control, TV 450 , peep 15 and fio2 of 60 %. patient was proned for 16 hours yesterday. CXR was reviewed, COVID pneumonia but no significant change was noted, Will repeat inflammatory markers tomorrow. Vent managment per tumbling instructor. Patient contines to remain propofol , nimbex. Continue on lovenox, baricitinib, dexamethasone and vit supplement 01/18 patient continues to remain intubated. Covid pneumonia. Is currently on assist control respiratory rate of 30 tidal volume 450 FiO2 of 55% and PEEP of 15. She is currently on heparin drip, propofol and Nimbex. Patient continues to tolerate prone positioning 16 hours overnight. Continues to receive dexamethasone, vitamin supplement, anticoagulation with heparin, baricitinib. Labs are reviewed patient has a hemoglobin stable at 12.2. This morning pH 7.48 PCO2 44 bicarb 32 creatinine 0.73 AST 100 chest x-ray done this morning suggestive of ARDS and pneumonia 01/19 patient continues to remain intubated currently on assist-control vent with a rate of 30 tidal volume 450 FiO2 50 and PEEP of 15. Continues to remain on propofol and Nimbex. Continue heparin drip for anticoagulation. Remains on Baricitinib , vitamin supplementation and dexamethasone. Labs reviewed hemoglobin stable at 12 PTT 53 blood gas obtained today suggest a pH of 7.45 pCO2 46 pO2 69 bicarb 32 BUN 23 creatinine 0.0.8 glucose 122 AST ED ALT 226. inflammation markers ordered for tomorrow last set was obtained on 01/12 01/20 Intubated. Vitals reviewed patient's afebrile pulse of 68 respiratory rate 30 blood pressure. 94/56 oxygen 91% on 50% FiO2. Patient remains on assist control, tidal volume 450 respiratory rate 30 FiO2 of 50% and PEEP of 15. He is currently on Pneumovax at 3 mics per KG per minute propofol at 50 Micro-K to Coumadin and heparin drip. Patient labs are reviewed hemoglobin is 11.7. Arterial blood gas at 50% FiO2 has a pH of 7.47 pO2 of 77 bicarb of 31 BUN 24 creatinine 0.7 LDH [id number] CRP 8.70. CRP is slightly elevated with improvement in LDH. Continue to monitor patient with the goal with treatment on heparin, as dexamethasone, vitamin supplementation and Baricitinib . Blood sugar are well controlled. 01/21: Patient remains intubated and on mechanical ventilation with tidal volume 400, FiO2 40 and PEEP of 16. Patient is on propofol and fentanyl drips. He is on tube feedings to be increased to 26 ML's per hour and tolerating. She he has had 100 250 ML's of urine output per hour. He has been afebrile, heart rate 70, respiratory rate 30, blood pressure 115/64, pulse ox 93%. Repeat blood work reveals WBC 7.4, hemoglobin 12, platelet count 310. D-dimer 1.23. Sodium 134, BUN 24 and creatinine 0.73. Blood sugars are running between 101 and 164. AST 105, ALT 261, alkaline phosphatase 135. LDH 999. C-reactive protein 13.5. Albumin 2.9. Gallbladder ultrasound reveals nonspecific pattern of liver can be seen with hepatic steatitis or hepatocellular disease including hepatitis. The chest x-ray reveals bilateral patchy airspace disease stable. 01/22: Remains in the intensive care unit intubated and on mechanical ventilation with tidal volume 400, FiO2 40, PEEP of 13. Paralytics for pause this morning and patient had significant drop in his pulse ox. He is currently on propofol, fentanyl and Nimbex. He has been afebrile, heart rate 73, blood pressure 99/63, pulse ox 90%. Repeat blood work reveals hemoglobin 11.6. Creatinine 0.81. Blood sugars are running between 98 and 155. AST 85, ALT 260, alkaline phosphatase 132. LDH 954, C-reactive protein 6.8. Repeat chest x-ray reveals bilateral patchy diffuse airspace disease stable. Patient is continued on Baricitinib, Lovenox 40 mg subcu daily, dexamethasone 6 mg IV push and vitamin supplements 01/23: Remains in the intensive care unit on mechanical ventilation with tidal volume 400, FiO2 40 and PEEP of 10. Patient is scheduled for trach and PEG tube placement today. He is currently on propofol, fentanyl and Nimbex. Patient remains afebrile, heart rate 69, respiratory rate 30, blood pressure 120/76, pulse ox 93%. Repeat blood work reveals creatinine is 0.71. WBC 8.3, hemoglobin 12.9. AST 111, ALT 328, alkaline phosphatase 153. Blood sugars have been running between 92 and 193. Sputum culture is showing Corynebacterium species from 01/21 and Aspergillus from 01/14. Repeat chest x-ray reveals bilateral patchy diffuse airspace disease stable. Patient is continued on Baricitinib, Lovenox 40 mg subcu daily, dexamethasone 6 mg IV push and vitamin supplements 01/24: Patient is status post trach and PEG tube done yesterday by Dr. Olivares. Patient is off Nimbex and he has his eyes open but not following commands. Patient's is planning to come in today to see him. He remains on ventilator with tidal volume 300, FiO2 50 and PEEP of 10. Repeat chest x-ray reveals diffuse bilateral infiltrate stable. Antibiotics have been changed to ce fepime and patient started on IV Voriconazole. Patient is continued on dexamethasone, Lovenox and vitamin supplements. WBC 17.2, hemoglobin 12.3. Sodium 130, BUN 21 creatinine 0.83. Total bilirubin 2, AST 54, ALT 248, alkaline phosphatase 132. Capillary blood glucose running between 80 and 193. 01/25: Patient remains in the intensive care unit on mechanical ventilation with tidal volume 400, FiO2 is been increased to 100 and PEEP of 12. Patient is currently on propofol, and was started on vasopressors yesterday and is status post 2 L of IV fluid. Temperature max 101.3. Pulse 87, respiratory rate 33, blood pressure 120/57, pulse ox 95%. statement request clerk is a sinus rhythm. Repeat blood work reveals WBC 8.3, hemoglobin 11. Sodium 136, chloride 108. Creatinine is 0.83. Calcium 7.9. Total bilirubin 2.7, AST 64, ALT 171, alkaline phosphatase 127. LDH 1187. C-reactive protein 32.6. Blood sugars are running between 133 and 173. Urine culture is showing gram-negative bacilli. Blood culture from 01/24 showing no growth at 24 hours. Repeat chest x-ray reveals clear to megaly with bilateral confluent mid to lower lung opacities consistent with: 19 infection redemonstrated. No significant change. Patient is currently on cefepime, Zyvox and there, so for worsening bilateral pulmonary infiltrate, pneumonia. 01/26: Patient remains in intensive care unit on mechanical ventilation with tidal volume 450, FiO2 80 and PEEP of 12. He has been afebrile for greater than 24 hours. Heart rate 80, blood pressure 132/70, pulse ox 86%. He does have leaking around the tracheostomy site. Repeat blood work reveals WBC 8, hemoglobin 11.1, platelet count 291. Sodium 135, potassium 5.8, creatinine 1.15. Total bilirubin 1.8, AST 101, ALT 194, alkaline phosphatase 135. LDH 1156. C-reactive protein 35.7. Blood sugars are running between 154 and 183. Patient will be started on Levemir 10 units at bedtime. He is continued on cef epime, Zyvox and voriconazole. 01/27: Patient remains intubated and on mechanical ventilation with tidal volume 400 50, FiO2 60, PEEP of 12. Plan is to try and wean oxygen down today. Tracheostomy tube has been manipulated and repositioned. He is not requiring vasopressors, currently on propofol. Chest x-ray reveals no significant interval change. Patient has had good urine output with BUN of 37 creatinine 1.28. Other lab work reveals WBC 9.8, hemoglobin 10.7. D-dimer 5.45. Total bilirubin 1.4, AST 153, ALT 282, alkaline phosphatase 138, LDH 1073. C-reactive protein 16.3. ProCalcitonin 10.1. 01/28: Remains in the intensive care unit, intubated and on mechanical ventilation with tidal volume 450, FiO2 of 60 and PEEP of 10. Patient is responsive, follows a few simple commands. He is currently on antibiotics in the form of cefepime, Zyvox and voriconazole. Patient is also continued on Decadron and Lovenox. Repeat blood work reveals WBC of 10, hemoglobin 10.5. D- dimer 5.63. C-reactive protein 6.2. LDH 1025. Total bilirubin 1.3, AST 95, ALT 250. Patient is on tube feedings at goal. He has had good urine output. Social work will [facility] anticipation of him being ready by the end of the week. 01/29 patient is currently in the ICU on with tracheostomy with tidal volume 450 FiO2 decreased to 55 this morning with PEEP of 10. Patient is responsive get agitated once propofol is discontinued. Patient is getting of diarrheal ordered every few hours to help with pain control. Currently stays on antibiotic in the form of cefepime, Zyvox and voriconazole. Urine output is appropriate in her on 75 200 mL per hour. Continues to remain on Decadron and Lovenox. He's currently off norepinephrine off Precedex is off fentanyl. Chest x-ray reviewed has bilateral interstitial infiltrate not changed. Labs reviewed, WBC 11.1 h emoglobin is 11.4 R blood gas this morning on 60% FiO2 suggest EF pO2 of 65 bicarb 26 blood sugar controlled ranging from 156-197. Ventilator management per pulmonary as reduce the FiO2 to 55 . Repeat blood gas in 24 hours. Patient initiating Seroquel 50 twice a day for agitation. Discussion with the nurse was made to reduce the Seroquel to 25 twice a day if patient appears to be sedated 01/30: Patient remains in intensive care unit, intubated status post tracheostomy and PEG tube placement. He is on tidal volume 450, FiO2 of 50 and PEEP is down to 10. He is able to follow some simple commands. Pulmonary medicine is planning to discontinue propofol and switched to Precedex. He is on tube feedings. Social work is following for possible discharge to [facility] by the end of the week. REVIEW OF SYSTEMS. Unable to obtain due to mechanical ventilation PHYSICAL EXAMINATION Gen: This is a 55-year-old male. He is resting in ICU bed, on mechanical ventilation status post trach and PEG, appears to be comfortable. Full examination deferred to the intensive due to mechanical ventilation and Covid 19. ASSESSMENT AND PLAN 1. Acute hypoxic respiratory failure secondary to Covid 19 pneumonia and possible secondary pneumonia, gram-negative and fungal. Patient required intubation 01/14. Patient is status post trach and PEG tube placement 01/[address] Olivares. Patient started on Remdesivir was discontinued by pulmonary, on January 12/2021 started on baricinib 4 mg daily, Baricitinib discontinued on 01/24. Continue cefepime, dexamethasone, Lovenox, Zyvox, voriconazole, continue ventilatory management per tumbling instructor. 2. Acute respiratory distress syndrome secondary to coronavirus pneumonia. 3. Acute septic shock requiring vasopressors. Patient is status post IV fluid bolus and off vasopressors. 4. History of bilateral pulmonary emboli and DVT in 2015. CTA negative for PE. Not on chronic anticoagulation. 5. Acute transaminitis secondary to Covid 19. 6. Generalized osteoarthritis. 7. Degenerative changes in the cervical spine status post fusion of C5-6. 8. 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 9. Elevated liver function tests, transaminitis. 10. Hyperglycemia secondary to steroids. Patient is on NovoLog scale, Levemir 10 units at bedtime added. 11. Severe hyperkalemia status post IV push calcium gluconate, dextrose and regular insulin, IV push sodium bicarb. 12. GI prophylaxis. Protonix. 13. DVT prophylaxis. Lovenox. 14. Acute agitation on ventilator initiating Seroquel 50 twice a day per tumbling instructor. Probably to continue on Seroquel 50 twice a day at this moment. With plan to taper off Seroquel to bedtime. DISCHARGE PLAN [facility] and plan of care have been directed as dictated by the signing physician. Shakila Mosqueda nurse practitioner acting as scribe for signing physician. Objective - Vital Signs Vital signs: Vital Signs Temp 98.2 F 01/30/21 08:00 Pulse 85 01/30/21 11:00 Resp 26 H 01/30/21 11:00 BP 110/57 01/29/21 17:00 Pulse Ox 97 01/30/21 11:00 Intake & Output 01/29/21 01/30/21 01/30/21 18:59 06:59 18:59 Intake Total 7824.174 7024.000 656.899 Output Total 1180 1230 440 Balance 568.269 180.000 216.899 Weight 107.5 kg 107.5 kg Intake: IV 552 952 330 Cefepime 2 gm In Sodium 100 Chloride 0.9% 100 ml @ 25 mls/hr IVPB Q8HR [facility] Rx# :[id number] Linezolid 600 mg In 300 Dextrose/Water 1 300ml. bag @ 150 mls/hr IVPB Q12H [facility] Rx#:[id number] Pressure Bags 72 72 30 Sodium Chloride 0.9% 1, 480 480 100 000 ml @ 20 mls/hr IV . Q24H [facility] Rx#:[id number] Voriconazole 200 mg In 100 100 Sodium Chloride 0.9% 100 ml @ 125 mls/hr IVPB Q12HR [facility] Rx#:[id number] Intake, IV Titration 565.269 200.000 74.899 Amount Cefepime 2 gm In Sodium 200 Chloride 0.9% 100 ml @ 25 mls/hr IVPB Q8HR [facility] Rx# :[id number] Dexmedetomidine/0.9% NaCl 10.699 (Pmx) 400 mcg In Empty Bag 1 bag @ 0.2 MCG/KG/HR 5.135 mls/hr IV .[id number] [facility] Rx#:[id number] Voriconazole 200 mg In 100 Sodium Chloride 0.9% 100 ml @ 125 mls/hr IVPB Q12HR [facility] Rx#:[id number] propofoL 1,000 mg In 265.269 200.000 64.2 Empty Bag 1 bag @ Titrate IV .Q0M [facility] Rx#: [id number] Tube Feeding 276 138 92 Other 355 120 160 Output: Urine 1180 1230 440 Other: Voiding Method Indwelling Catheter Indwelling Catheter Indwelling Catheter ABP, PAP, CO, CI - Last Documented Arterial Blood Pressure 167/81 - Labs CBC & Chem 7: 01/30/21 04:42 01/30/21 04:42 Labs: Abnormal Lab Results - Last 24 Hours (Table) 01/29/21 01/29/21 01/30/21 Range/Units 12:51 18:17 00:02 RBC (4.30-5.90) m/uL Hgb (13.0-17.5) gm/dL Hct (39.0-53.0) % Lymphocytes # (Manual) (1.0-4.8) k/uL Metamyelocytes # (Man) (0) k/uL Myelocytes # (Manual) (0) k/uL ABG pO2 (83-108) mmHg ABG HCO3 (21-25) mmol/L ABG Total CO2 (19-24) mmol/L ABG O2 Saturation (94-97) % Chloride (98-107) mmol/L BUN (9-20) mg/dL Glucose (74-99) mg/dL POC Glucose (mg/dL) 197 H 161 H 152 H (75-99) mg/dL ALT (4-49) U/L Alkaline Phosphatase (38-126) U/L Total Protein (6.3-8.2) g/dL Albumin (3.5-5.0) g/dL 01/30/21 01/30/21 01/30/21 Range/Units 04:42 04:42 05:44 RBC 3.40 L (4.30-5.90) m/uL Hgb 10.6 L (13.0-17.5) gm/dL Hct 32.9 L (39.0-53.0) % Lymphocytes # (Manual) 0.74 L (1.0-4.8) k/uL Metamyelocytes # (Man) 0.37 H (0) k/uL Myelocytes # (Manual) 1.10 H (0) k/uL ABG pO2 65 L (83-108) mmHg ABG HCO3 27 H (21-25) mmol/L ABG Total CO2 28 H (19-24) mmol/L ABG O2 Saturation 93.9 L (94-97) % Chloride 108 H (98-107) mmol/L BUN 34 H (9-20) mg/dL Glucose 171 H (74-99) mg/dL POC Glucose (mg/dL) (75-99) mg/dL ALT 140 H (4-49) U/L Alkaline Phosphatase 131 H (38-126) U/L Total Protein 5.4 L (6.3-8.2) g/dL Albumin 2.6 L (3.5-5.0) g/dL 01/30/21 01/30/21 Range/Units 06:31 11:49 RBC (4.30-5.90) m/uL Hgb (13.0-17.5) gm/dL Hct (39.0-53.0) % Lymphocytes # (Manual) (1.0-4.8) k/uL Metamyelocytes # (Man) (0) k/uL Myelocytes # (Manual) (0) k/uL ABG pO2 (83-108) mmHg ABG HCO3 (21-25) mmol/L ABG Total CO2 (19-24) mmol/L ABG O2 Saturation (94-97) % Chloride (98-107) mmol/L BUN (9-20) mg/dL Glucose (74-99) mg/dL POC Glucose (mg/dL) 158 H 142 H (75-99) mg/dL ALT (4-49) U/L Alkaline Phosphatase (38-126) U/L Total Protein (6.3-8.2) g/dL Albumin (3.5-5.0) g/dL Microbiology - Last 24 Hours (Table) 01/24/21 10:22 Blood Culture - Preliminary Blood No Growth after 120 hours 01/27/21 08:00 Gram Stain - Final Sputum Sputum Culture - Final Mine albicans
[2021-01-30 17:55] LABS: Glucose,Whole Blood 194 mg/dL (75-99)
[2021-01-30] MEDS: INSULIN DETEMIR (LEVEMIR) 100 UNIT/ML SYR SQ SCH (22:56)
[2021-01-31 01:10] LABS: Glucose,Whole Blood 145 mg/dL (75-99)
[2021-01-31] MEDS: INSULIN ASPART (NovoLOG) 100 UNIT/ML VIAL SQ SCH ×4 (01:15→17:56)
[2021-01-31 04:52] LABS: ABG Base Excess 2.9 mmol/L; ABG HCO3 27 mmol/L (21-25); ABG PCO2 38 mmHg (35-45); ABG PH 7.46 (7.35-7.45); ABG TCO2 28 mmol/L (19-24); Allen Test Performed? Yes
[2021-01-31 04:54] LABS: ABG PO2 58 mmHg (83-108)
[2021-01-31 05:02] LABS: ALT 110 U/L (4-49); AST 31 U/L (17-59); African American GFR (CKD) >90 (>60 ml/min/1.73 sqM); Albumin 2.8 g/dL (3.5-5.0); Alkaline Phosphatase 127 U/L (38-126); Anion Gap 5 mmol/L; Blood Urea Nitrogen 33 mg/dL (9-20); Calcium 8.7 mg/dL (8.4-10.2); Carbon Dioxide 25 mmol/L (22-30); Chloride 107 mmol/L (98-107); Glucose 104 mg/dL (74-99); HCT 35.1 % (39.0-53.0); HGB 11.4 gm/dL (13.0-17.5); MCH 30.9 pg (25.0-35.0); MCHC 32.5 g/dL (31.0-37.0); MCV 95.2 fL (80.0-100.0); Mean Platelet Volume 8.2; Non-African American GFR(CKD) 83 (>60 ml/min/1.73 sqM); Platelet Count 310 k/uL (150-450); Potassium 3.7 mmol/L (3.5-5.1); RBC 3.68 m/uL (4.30-5.90); Sodium 137 mmol/L (137-145); Total Bilirubin 0.9 mg/dL (0.2-1.3); Total Protein 5.9 g/dL (6.3-8.2); WBC 10.8 k/uL (3.8-10.6)
[2021-01-31 06:06] LABS: Band Neutrophils % 13 %; Eosinophils # (M) 0.86 k/uL (0-0.7); Lymphocytes # (M) 0.97 k/uL (1.0-4.8); Metamyelocytes # (M) 0.86 k/uL (0); Metamyelocytes % 8 %; Monocytes # (M) 0.22 k/uL (0-1.0); Myelocytes # (M) 0.22 k/uL (0); Myelocytes % 2 %; Neutrophils % (M) 58 %; Nucleated Red Blood Cells 0 /100 WBC (0-0); Total Cells Counted 200
[2021-01-31 06:07] LABS: Toxic Granulation Present
[2021-01-31] MEDS: HYDROmorphone 1 MG/ML 1 ML SYRINGE IVP PRN ×3 (06:48→15:12)
[2021-01-31] MEDS: SODIUM CHLORIDE 0.9% 1,000 ML IV SCH (07:00)
[2021-01-31] MEDS ORDERED: Potassium Replacement Protocol 1 EACH MISC MISCELLANE PRN (07:32)
[2021-01-31] MEDS ORDERED: POTASSIUM BICARBONATE/CIT AC 20 MEQ TABLET.EFF NG-TUBE SCH (08:00)
--- NOTE | 2021-01-31 08:40 | XR ---
EXAMINATION TYPE: XR chest 1V portable DATE OF EXAM: 01/31/2021 COMPARISON: 01/30/2021 HISTORY: Shortness of breath TECHNIQUE: Single frontal view of the chest is obtained. FINDINGS: Tracheostomy tube and right-sided PICC line noted. Diffuse interstitial and alveolar infil trate seen. Heart size stable. No pneumothorax. Postsurgical change overlying the cervical spine. Lef t-sided central line has been removed. IMPRESSION: Diffuse bilateral infiltrate stable.
[2021-01-31] MEDS: CHLORHEXIDINE GLUCONATE 15 ML CUP MUCOUS MEM SCH ×2 (08:44→21:48)
[2021-01-31] MEDS: QUEtiapine 50 MG TAB PO SCH (08:44)
[2021-01-31] MEDS: ZINC SULFATE 220 MG CAP PO SCH (08:44)
[2021-01-31] MEDS: PANTOPRAZOLE 40 MG/10 ML VIAL IVP SCH (08:44)
[2021-01-31] MEDS: DEXAMETHASONE SOD PHOSPHATE 10 MG/ML 1 ML VIAL IVP SCH ×2 (08:45→21:48)
[2021-01-31] MEDS: ASCORBIC ACID 500 MG TAB PO SCH (08:45)
[2021-01-31] MEDS: ENOXAPARIN 40 MG/0.4 ML SYRINGE SQ SCH (08:45)
[2021-01-31] MEDS: CHOLECALCIFEROL 25 MCG (1000 IU) TABLET PO SCH (08:45)
[2021-01-31] MEDS: LACTULOSE 20 GM/30 ML CUP PO SCH (08:48)
[2021-01-31] MEDS: VORICONAZOLE 200 MG in SODIUM CHLORIDE 0.9% 100 ML IVPB SCH ×2 (08:52→21:49)
[2021-01-31] MEDS: LINEZOLID 600 MG in DEXTROSE/WATER 1 300ML.BAG IVPB SCH ×2 (09:55→23:15)
[2021-01-31] MEDS: NOREPINEPHRINE 4 MG in SODIUM CHLORIDE 0.9% 250 ML IV SCH (10:52)
[2021-01-31 11:33] LABS: Glucose,Whole Blood 157 mg/dL (75-99)
--- NOTE | 2021-01-31 12:19 | P.PN ---
Subjective Progress Note Date: 01/31/21 Principal diagnosis: Acute hypoxic respiratory failure secondary to COVID-19 pneumonia 01/27/2021, the patient's condition has a more stabilized. Since yesterday, the patient was taken off paralytics and the patient is currently on propofol running at 75 mcg/kg per minute. He seems to be quite intense a mechanical ventilator. He is also arousable with stimulation. He does have some occasional cough. No spontaneous eye opening. He is quite synchronous with the mechanical ventilator. I have him on VC plus mode at the rate of 22 with a tidal volume of 450 and PEEP of 12 and FiO2 is currently down to 60%. Chest x- ray shows bilateral pulmonary infiltrates, slightly improved compared to yesterday. He was having significant amount of air leak around his tracheostomy tube and we were able to manage that with some had manipulation and positioning of the tracheostomy tube. The patient has a #[address] tube in [address]. On today's evaluation, the leaks are minimal. His peak airway pressures around 33. 70 pressures around 30. The patient had a blood gas today that showed a pH of 7.39 with a pCO2 of 45 and a pO2 of 61 and this was on FiO2 of 60%. The sputum sample is positive for Aspergillus and charity bacterium and the patient remains on a broad-spectrum antibiotics including Zyvox, voriconazole, and IV cefepime. His urine culture also cabin outfitter to be positive for E. coli. Meanwhile, the patient is hemodynamically stable. I'm a bit concerned about his kidney function. Creatinine today was up to 1.28 and the patient is producing adequate amount of urine output in the order of 50-60 mL an hour. In terms of his inflammatory markers, the patient has a d-dimer of 5.45 and LDH is 1073, improved compared to yesterday and his CRP level is down to 16.3. Meanwhile, he is still being treated with Decadron at a dose of 60 mg IV every 24 hours. He was taken off the Baricitinib several days ago. He remains on Lovenox for DVT prophylaxis at a dose of 40 mg subcu every 24 hours. He remains on Levemir insulin 10 units a day in addition to NovoLog sliding scale coverage. No other significant events overnight. He did have a bout of hyperkalemia and the potassium level was as high as 6.2 and this was managed appropriately and the potassium level is improved. Hemodynamically stable. No pressors. Liver function tests have been abnormal yet stable. The patient has not produced any bowel movement activity at. The patient was started on lactulose. Reevaluated today on 01/28/2021, patient remains in the ICU, intubated and mechanically ventilated. Patient is on volume control plus the rate of 20 to tell volume 450 FiO2 60% PEEP of 10. ABG showed a pO2 of 65 pCO2 39 pH of 7.42 on 50% FiO2. Remains on propofol at 55 mcg/kg/m, not requiring any other sedatives, he is off paralytics. Patient is status post tracheostomy and PEG tube placement on 01/23. Patient is on enteral feeding using vital AF at 1 3 mL per hour. He is also on Decadron at 60 mg IV push twice a day. Patient is arousable, follows very simple instructions. Chest x-ray continues to show bilateral Infiltrates, right more so than left. Tracheostomy seems to be intact. ABC is relatively normal d-dimer is 5.63 electrolytes are normal , BUN is 38 creatinine 1.18 liver enzymes are a bit elevated ALT of 250 AST of 95 LDH is 1025 C-reactive protein 6.2. Patient remains on the COVID-19 cocktail, he is also on voriconazole. Zyvox. Decadron 6 mg IV push twice a day. Cefepime. Reevaluated today on 01/29/2021, remains intubated and mechanically ventilated. Patient is on volume control plus of 450, rate 22 FiO2 60% PEEP of 10 ABG showed a pO2 of 65 pCO2 of 37 pH of 7.45. Hence no changes were made in the ventilator settings. LDH remains elevated at 135 to propofol is at 55, patient is off norepinephrine, off Precedex, he is off fentanyl, and he is doing relatively well considering his overall picture, patient had intermittent episodes of a gitation and restlessness, and I have recommended we start the patient on Seroquel 50 mg twice a day. And hopefully can titrate the upper fall down and possibly discontinue. Chest x-ray continues to show bilateral interstitial infiltrates, not much of the changes noted on the chest x-ray. WBC count today is 11.1 hemoglobin 11.4. Basic metabolic profile is normal BUN is 39 creatinine is 1.05. LDH is noted to be a bit elevated today compared to yesterday 1352. Reevaluated today on 01/30/2021, remains in the ICU, intubated, patient is status post tracheostomy and PEG tube placement, he is on assist control rate of 22 volume control +450 FiO2 50% PEEP is at 10. Patient remains on propofol, he is at 50 mcg/kg/m, arousable, follows very simple instructions, hence I plan to discontinue propofol altogether and switch the patient to Precedex. Patient remains on enteral feedings, tolerating enteral feedings well, patient is not requiring any pressors, he is hemodynamically stable. Chest x-ray continues to show bilateral infiltrates. CBC today showed the reset of 9.2 hemoglobin 10.6. ABG today showed a pO2 of 65 pCO2 of 43 pH of 7.41 this is on a 55% FiO2. Basic metabolic profile is normal renal profile is improved with BUN 34 creatinine 1.16. Reevaluated today on 01/31/2021, patient remains in the ICU, intubated and mechanically ventilated. He is on assist control rate of 22, volume control +450 FiO2 50% PEEP is at 10. ABG showed a pO2 of 58 pCO2 of 38 pH of 7.46. Patient is still requiring propofol, he could not tolerate switching propofol to Precedex as he became extremely agitated and restless tachypneic and tachycardic, hence he was placed back on propofol at 60 mcg/kg/m. Chest x-ray continues to show bilateral infiltrates. Improved compared to his initial baseline chest x-ray. CBC is relatively unremarkable electrolytes are unremarkable. Renal profile is normal. Patient remains on enteral feeding via PEG tube. Remains on the COVID-19 cocktail, remains on Decadron. Remains on Lovenox 40 mg subcu daily. He is on Dilaudid when necessary. Remains on Protonix, Seroquel was added a few days ago, and I will likely increase the dose. Patient is still on Zyvox and he is on voriconazole. Patient is off cefepime. Objective - Vital Signs Vital signs: Vital Signs Temp 99.9 F H 01/31/21 12:00 Pulse 89 01/31/21 12:00 Resp 27 H 01/31/21 12:00 BP 136/87 01/31/21 07:00 Pulse Ox 91 L 01/31/21 12:00 Intake & Output 01/30/21 01/31/21 01/31/21 18:59 06:59 18:59 Intake Total 2895.473 7573 774.405 Output Total 1125 1275 675 Balance 451.289 7 99.405 Weight 107.5 kg Intake: IV 780 576 515 Cefepime 2 gm In Sodium 100 Chloride 0.9% 100 ml @ 25 mls/hr IVPB Q8HR [facility] Rx# :[id number] Linezolid 600 mg In 300 300 300 Dextrose/Water 1 300ml. bag @ 150 mls/hr IVPB Q12H [facility] Rx#:[id number] Pressure Bags 60 36 15 Sodium Chloride 0.9% 1, 220 240 100 000 ml @ 20 mls/hr IV . Q24H [facility] Rx#:[id number] Voriconazole 200 mg In 100 100 Sodium Chloride 0.9% 100 ml @ 125 mls/hr IVPB Q12HR [facility] Rx#:[id number] Intake, IV Titration 293.289 400 57.405 Amount Dexmedetomidine/0.9% NaCl 15.591 (Pmx) 400 mcg In Empty Bag 1 bag @ 0.2 MCG/KG/HR 5.135 mls/hr IV .[id number] [facility] Rx#:[id number] propofoL 1,000 mg In 277.698 400 57.405 Empty Bag 1 bag @ Titrate IV .Q0M [facility] Rx#: [id number] Tube Feeding 253 276 92 Other 250 30 110 Output: Urine 1125 1275 675 Other: Voiding Method Indwelling Catheter Indwelling Catheter Indwelling Catheter ABP, PAP, CO, CI - Last Documented Arterial Blood Pressure 142/59 - Exam Physical Exam: Revealed a 55-year-old white male in no distress. Intubated and mechanically ventilated via tracheostomy. Head: Atraumatic, normocephalic. Tracheostomy is intact. HEENT:[Neck is supple.] [No neck masses.] [No thyromegaly.] [No JVD.] Intact tracheostomy is noted. Chest: Symmetrical chest expansion crackles at the bases bilaterally. Cardiac Exam: [Normal S1 and S2, no S3 gallop, no murmur.] Abdomen: [Soft, nontender, no megaly, no rebound, no guarding, normal bowel sounds.] PEG tube is intact. Extremities: 1+ bipedal edema, no clubbing, no cyanosis. Neurological Exam: Awake, follows simple instructions in spite of being on propofol. But seems to be generally weak. Psychiatric: Depressed mood, blunt affect, appropriate mental status considering the patient is on propofol at 60 mcg/kg/m. Skin: No rashes. - Labs CBC & Chem 7: 01/31/21 04:05 01/31/21 04:05 Labs: Abnormal Lab Results - Last 24 Hours (Table) 01/30/21 01/31/21 01/31/21 Range/Units 17:42 01:07 04:05 WBC 10.8 H (3.8-10.6) k/uL RBC 3.68 L (4.30-5.90) m/uL Hgb 11.4 L (13.0-17.5) gm/dL Hct 35.1 L (39.0-53.0) % Lymphocytes # (Manual) 0.97 L (1.0-4.8) k/uL Eosinophils # (Manual) 0.86 H (0-0.7) k/uL Metamyelocytes # (Man) 0.86 H (0) k/uL Myelocytes # (Manual) 0.22 H (0) k/uL ABG pH (7.35-7.45) ABG pO2 (83-108) mmHg ABG HCO3 (21-25) mmol/L ABG Total CO2 (19-24) mmol/L ABG O2 Saturation (94-97) % BUN (9-20) mg/dL Glucose (74-99) mg/dL POC Glucose (mg/dL) 194 H 145 H (75-99) mg/dL ALT (4-49) U/L Alkaline Phosphatase (38-126) U/L Total Protein (6.3-8.2) g/dL Albumin (3.5-5.0) g/dL 01/31/21 01/31/21 01/31/21 Range/Units 04:05 04:46 11:31 WBC (3.8-10.6) k/uL RBC (4.30-5.90) m/uL Hgb (13.0-17.5) gm/dL Hct (39.0-53.0) % Lymphocytes # (Manual) (1.0-4.8) k/uL Eosinophils # (Manual) (0-0.7) k/uL Metamyelocytes # (Man) (0) k/uL Myelocytes # (Manual) (0) k/uL ABG pH 7.46 H (7.35-7.45) ABG pO2 58 L* (83-108) mmHg ABG HCO3 27 H (21-25) mmol/L ABG Total CO2 28 H (19-24) mmol/L ABG O2 Saturation 92.0 L (94-97) % BUN 33 H (9-20) mg/dL Glucose 104 H (74-99) mg/dL POC Glucose (mg/dL) 157 H (75-99) mg/dL ALT 110 H (4-49) U/L Alkaline Phosphatase 127 H (38-126) U/L Total Protein 5.9 L (6.3-8.2) g/dL Albumin 2.8 L (3.5-5.0) g/dL Microbiology - Last 24 Hours (Table) 01/24/21 10:22 Blood Culture - Final Blood No Growth after 144 hours Assessment and Plan Assessment: Impression: Acute hypoxic respiratory failure secondary to COVID-19 pneumonia, intubated on 01/14, treated initially with Decadron and baricitinib, underwent tracheostomy on 01/23 and PEG tube placement. Developed superinfection requiring antibiotics and antifungal treatment. Sputum cultures have grown Aspergillus and corynebacterium. Patient is now on Zyvox, and voriconazole. And he is off baricitinib, ARDS associated with COVID-19 pneumonia Degenerative joint disease Aspergillus fumigatus and sputum, hence voriconazole was added. Elevated liver enzymes secondary to COVID-19 infection Acute sepsis secondary to pneumonia and suspect septic shock, required pressors for a short period of time. Acute kidney injury secondary to COVID-19 infection/pneumonia. Suspect critical illness polyneuropathy Patient will need a long course of rehabilitation. Recommendation: Continue ventilatory support, continue to titrate the FiO2 accordingly. Continue tracheostomy care. Continue propofol and hopefully taper and titrated down as much as possible Continue antibiotics and antifungals for now. Continue to monitor inflammatory markers and liver profile. As well as renal profile. Continue enteral feeding and nutritional support. Continue Lovenox. Continue Decadron. Continue COVID-19 cocktail. Overall prognosis remains relatively guarded [facility] mostly because of insurance issues. patient remains critically ill. Critical care time is over 30 minutes. Time with Patient: Greater than 30
--- NOTE | 2021-01-31 14:08 | P.PN ---
Subjective Progress Note Date: 01/31/21 CHIEF COMPLAINT: COVID-19 pneumonia HISTORY OF PRESENT ILLNESS: Patient in the ICU and requiring mechanical ventilation. Patient is status post trach and PEG tube placement. Patient is able to maintain his tidal volumes. He is still having some leaking of air from the trach site. He is also tolerating his tube feeds. No residual. He is having bowel movements. Afebrile. WBC 10.8 Patient seen and examined with Dr. Olivares PHYSICAL EXAM: VITAL SIGNS: Reviewed. GENERAL: Well-developed in no acute distress. HEENT: No sclera icterus. Extraocular movements grossly intact. Moist buccal mucosa. Head is atraumatic, normocephalic. Tracheostomy site clean dry and intact ABDOMEN: Soft. Nondistended. Nontender. PEG tube site clean dry and intact NEUROLOGIC: Awake ASSESSMENT: 1. Acute hypoxic respiratory failure secondary to COVID-19 pneumonia status post tracheostomy placement 2. Severe protein calorie malnutrition status post PEG tube placement PLAN: -Continue to monitor tracheostomy air leak -Continue ICU management -Continue supportive care Physician Stringed Instrument Repairer note has been reviewed by physician. Signing provider agrees with the documented findings, assessment, and plan of care. Objective - Vital Signs Vital signs: Vital Signs Temp 99.9 F H 01/31/21 12:00 Pulse 89 01/31/21 12:00 Resp 27 H 01/31/21 12:00 BP 136/87 01/31/21 07:00 Pulse Ox 91 L 01/31/21 12:00 Intake & Output 01/30/21 01/31/21 01/31/21 18:59 06:59 18:59 Intake Total 3501.866 0172 967.881 Output Total 1125 1275 800 Balance 451.289 7 167.881 Weight 107.5 kg Intake: IV 780 576 538 Cefepime 2 gm In Sodium 100 Chloride 0.9% 100 ml @ 25 mls/hr IVPB Q8HR [facility] Rx# :[id number] Linezolid 600 mg In 300 300 300 Dextrose/Water 1 300ml. bag @ 150 mls/hr IVPB Q12H [facility] Rx#:[id number] Pressure Bags 60 36 18 Sodium Chloride 0.9% 1, 220 240 120 000 ml @ 20 mls/hr IV . Q24H [facility] Rx#:[id number] Voriconazole 200 mg In 100 100 Sodium Chloride 0.9% 100 ml @ 125 mls/hr IVPB Q12HR [facility] Rx#:[id number] Intake, IV Titration 293.289 400 144.881 Amount Dexmedetomidine/0.9% NaCl 15.591 (Pmx) 400 mcg In Empty Bag 1 bag @ 0.2 MCG/KG/HR 5.135 mls/hr IV .[id number] [facility] Rx#:[id number] propofoL 1,000 mg In 277.698 400 144.881 Empty Bag 1 bag @ Titrate IV .Q0M [facility] Rx#: [id number] Tube Feeding 253 276 115 Other 250 30 170 Output: Urine 1125 1275 800 Other: Voiding Method Indwelling Catheter Indwelling Catheter Indwelling Catheter ABP, PAP, CO, CI - Last Documented Arterial Blood Pressure 142/59 - Labs CBC & Chem 7: 01/31/21 04:05 01/31/21 04:05 Labs: Abnormal Lab Results - Last 24 Hours (Table) 01/30/21 01/31/21 01/31/21 Range/Units 17:42 01:07 04:05 WBC 10.8 H (3.8-10.6) k/uL RBC 3.68 L (4.30-5.90) m/uL Hgb 11.4 L (13.0-17.5) gm/dL Hct 35.1 L (39.0-53.0) % Lymphocytes # (Manual) 0.97 L (1.0-4.8) k/uL Eosinophils # (Manual) 0.86 H (0-0.7) k/uL Metamyelocytes # (Man) 0.86 H (0) k/uL Myelocytes # (Manual) 0.22 H (0) k/uL ABG pH (7.35-7.45) ABG pO2 (83-108) mmHg ABG HCO3 (21-25) mmol/L ABG Total CO2 (19-24) mmol/L ABG O2 Saturation (94-97) % BUN (9-20) mg/dL Glucose (74-99) mg/dL POC Glucose (mg/dL) 194 H 145 H (75-99) mg/dL ALT (4-49) U/L Alkaline Phosphatase (38-126) U/L Total Protein (6.3-8.2) g/dL Albumin (3.5-5.0) g/dL 01/31/21 01/31/21 01/31/21 Range/Units 04:05 04:46 11:31 WBC (3.8-10.6) k/uL RBC (4.30-5.90) m/uL Hgb (13.0-17.5) gm/dL Hct (39.0-53.0) % Lymphocytes # (Manual) (1.0-4.8) k/uL Eosinophils # (Manual) (0-0.7) k/uL Metamyelocytes # (Man) (0) k/uL Myelocytes # (Manual) (0) k/uL ABG pH 7.46 H (7.35-7.45) ABG pO2 58 L* (83-108) mmHg ABG HCO3 27 H (21-25) mmol/L ABG Total CO2 28 H (19-24) mmol/L ABG O2 Saturation 92.0 L (94-97) % BUN 33 H (9-20) mg/dL Glucose 104 H (74-99) mg/dL POC Glucose (mg/dL) 157 H (75-99) mg/dL ALT 110 H (4-49) U/L Alkaline Phosphatase 127 H (38-126) U/L Total Protein 5.9 L (6.3-8.2) g/dL Albumin 2.8 L (3.5-5.0) g/dL Microbiology - Last 24 Hours (Table) 01/24/21 10:22 Blood Culture - Final Blood No Growth after 144 hours
--- NOTE | 2021-01-31 16:01 | P.PN ---
Subjective Progress Note Date: 01/31/21 HISTORY OF PRESENT ILLNESS This is a 55-year-old male patient of Dr. 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 Patient states he has not been feeling well since Thursday. He said shortness of breath cough is nonproductive along with fever and chills, exertional dyspnea. He denies having any nausea vomiting or diarrhea. He denies any close contacts to known Covid people. He states his temperature is been up to 102.7 at home. He is not vaccinated. Patient presented to [facility] emergency center and found to be febrile at 101.1, heart rate 90, blood pressure 122/80, pulse ox 85% on room air. CBC revealed platelet count of 128. D-dimer 0.82. Sodium 131 otherwise electrolytes and renal function were normal. Blood sugar 147. Troponin negative. Coronavirus PCR positive. Chest x-ray reveals patchy bilateral airspace disease especially in the mid and lower lungs. Correlate for multifocal pneumonia including Covid 19 pneumonia. CTA of the chest was suboptimal study without central acute pulmonary embolism. Bilateral multifocal and confluent groundglass opacities right greater than left and greater in the lower lungs consistent with known Covid 19 infection. Patient is seen today in the emergency center waiting for bed on the [facility] floor, started on Remdesivir, Lovenox, dexamethasone and vitamin supplements, consult with pulmonary medicine. 01/12: Patient is comfortable, however he requires 40 L of oxygen via airvo sats 88-89%, he feels better today compared to his nonrebreather mask yesterday, patient did not sleep well, patient does not have any cough, however he does have shortness of breath. Patient denies any aspiration, appetite is still marginal, patient has insomnia vitals, blood sugar currently is 243, creatinine of 0.98, d-dimer is 0.84, CRP is elevated, LDH is elevated, venous Doppler, shows chronic DVT, left popliteal, in the posterior tibial veins, without any obstruction of flow. No acute DVT identified CTA, shows suboptimal, without central acute pulmonary emboli, has bilateral multifocal and confluent groundglass opacities, right greater than left, lower lobe, consistent with COVID-19 infection and remdesivir discontinued by pulmonary today and is outside of the window for remdesivir 01/13: Patient is on aerosol 14 L, with nonrebreather mask, 15 L, hypoxemia n oted on 88%, worse with coughing, however his nonrebreather mask is very loose. Nurse is worriedwith the turn of events, and requested an ICU transfer, Dr. Canales has seen the patient, and is stable for floor management at this time, patient is not significant tachypnea, and is not tiring out. There is no hemoptysis, and mucus is productive, patient's doing incentive spirometry, up 2 L. 01/14: Patient remains in the intensive care unit, he was intubated this morning as he was desaturating with BiPAP. He has been afebrile, heart rate 73, blood pressure 93/47, pulse ox 90%. CBC is unremarkable. D-dimer 12.04. Sodium 135, creatinine 0.82. LDH 2929, C-reactive protein 5.2. Sputum culture is in progress. He has had good urine output. Chest x-ray reveals no evident convocation from catheters. Bilateral airspace disease. 01/15: Patient remains in the intensive care intubated and on mechanical ventilation with tidal volume 450, FiO2 80, PEEP of 15. Patient has been started on norepinephrine and remains on propofol, heparin drip, Nimbex. Repeat blood work revealed unremarkable CBC. Creatinine 0.88. Capillary blood glucose running between 195 and 215. AST 126, ALT 183, alkaline phosphatase 109. Sputum culture is in progress. Repeat chest x-ray reveals correlate for pneumonia versus edema, ARDS. Patient is continued on vitamin supplements, heparin drip, dexamethasone and Baricitinib. patient remains in intensive care intubated on mechanical ventilator at FiO2 60 percent PEEP respiratory rate of 30 tidal volume 450. Continues to maintain saturations between 94-95% on the current settings. Vitals otherwise stable labs reviewed today WBC is 9.5 hemoglobin 12.4 d-dimer is elevated at 4.98. ABG obtained today suggest pH of 7.4 pO2 53 bicarb 26 on 50% FiO2. Creatinine stable at 0.78 glucose is maintained between 145-190. LDH 1564 CRP is elevated at 4. Patient's inflammatory markers trending down. Patient's vent settings increased to 80% for inadequate oxygenation. Chest x-ray reviewed showed bilateral infiltrate consistent with coronavirus associated pneumonia. Patient continues intubated on propofol 70 bike but patient examined Nimbex 1.25 g daily per minute. Patient to receive 1 dose of Lasix today. Continue to remain on baricitinib day 2 PAtient remains intubaated since . patient continues too remain on assist control, TV 450 , peep 15 and fio2 of 60 %. patient was proned for 16 hours yesterday. CXR was reviewed, COVID pneumonia but no significant change was noted, Will repeat inflammatory markers tomorrow. Vent managment per precision instrument maker. Patient contines to remain propofol , nimbex. Continue on lovenox, baricitinib, dexamethasone and vit supplement 01/18 patient continues to remain intubated. Covid pneumonia. Is currently on assist control respiratory rate of 30 tidal volume 450 FiO2 of 55% and PEEP of 15. She is currently on heparin drip, propofol and Nimbex. Patient continues to tolerate prone positioning 16 hours overnight. Continues to receive dexamethasone, vitamin supplement, anticoagulation with heparin, baricitinib. Labs are reviewed patient has a hemoglobin stable at 12.2. This morning pH 7.48 PCO2 44 bicarb 32 creatinine 0.73 AST 100 chest x-ray done this morning suggestive of ARDS and pneumonia 01/19 patient continues to remain intubated currently on assist-control vent with a rate of 30 tidal volume 450 FiO2 50 and PEEP of 15. Continues to remain on propofol and Nimbex. Continue heparin drip for anticoagulation. Remains on Baricitinib , vitamin supplementation and dexamethasone. Labs reviewed hemoglobin stable at 12 PTT 53 blood gas obtained today suggest a pH of 7.45 pCO2 46 pO2 69 bicarb 32 BUN 23 creatinine 0.0.8 glucose 122 AST ED ALT 226. inflammation markers ordered for tomorrow last set was obtained on 01/12 01/20 Intubated. Vitals reviewed patient's afebrile pulse of 68 respiratory rate 30 blood pressure. 94/56 oxygen 91% on 50% FiO2. Patient remains on assist control, tidal volume 450 respiratory rate 30 FiO2 of 50% and PEEP of 15. He is currently on Pneumovax at 3 mics per KG per minute propofol at 50 Micro-K to Coumadin and heparin drip. Patient labs are reviewed hemoglobin is 11.7. Arterial blood gas at 50% FiO2 has a pH of 7.47 pO2 of 77 bicarb of 31 BUN 24 creatinine 0.7 LDH [id number] CRP 8.70. CRP is slightly elevated with improvement in LDH. Continue to monitor patient with the goal with treatment on heparin, as dexamethasone, vitamin supplementation and Baricitinib . Blood sugar are well controlled. 01/21: Patient remains intubated and on mechanical ventilation with tidal volume 400, FiO2 40 and PEEP of 16. Patient is on propofol and fentanyl drips. He is on tube feedings to be increased to 26 ML's per hour and tolerating. She he has had 100 250 ML's of urine output per hour. He has been afebrile, heart rate 70, respiratory rate 30, blood pressure 115/64, pulse ox 93%. Repeat blood work reveals WBC 7.4, hemoglobin 12, platelet count 310. D-dimer 1.23. Sodium 134, BUN 24 and creatinine 0.73. Blood sugars are running between 101 and 164. AST 105, ALT 261, alkaline phosphatase 135. LDH 999. C-reactive protein 13.5. Albumin 2.9. Gallbladder ultrasound reveals nonspecific pattern of liver can be seen with hepatic steatitis or hepatocellular disease including hepatitis. The chest x-ray reveals bilateral patchy airspace disease stable. 01/22: Remains in the intensive care unit intubated and on mechanical ventilation with tidal volume 400, FiO2 40, PEEP of 13. Paralytics for pause this morning and patient had significant drop in his pulse ox. He is currently on propofol, fentanyl and Nimbex. He has been afebrile, heart rate 73, blood pressure 99/63, pulse ox 90%. Repeat blood work reveals hemoglobin 11.6. Creatinine 0.81. Blood sugars are running between 98 and 155. AST 85, ALT 260, alkaline phosphatase 132. LDH 954, C-reactive protein 6.8. Repeat chest x-ray reveals bilateral patchy diffuse airspace disease stable. Patient is continued on Baricitinib, Lovenox 40 mg subcu daily, dexamethasone 6 mg IV push and vitamin supplements 01/23: Remains in the intensive care unit on mechanical ventilation with tidal volume 400, FiO2 40 and PEEP of 10. Patient is scheduled for trach and PEG tube placement today. He is currently on propofol, fentanyl and Nimbex. Patient remains afebrile, heart rate 69, respiratory rate 30, blood pressure 120/76, pulse ox 93%. Repeat blood work reveals creatinine is 0.71. WBC 8.3, hemoglobin 12.9. AST 111, ALT 328, alkaline phosphatase 153. Blood sugars have been running between 92 and 193. Sputum culture is showing Corynebacterium species from 01/21 and Aspergillus from 01/14. Repeat chest x-ray reveals bilateral patchy diffuse airspace disease stable. Patient is continued on Baricitinib, Lovenox 40 mg subcu daily, dexamethasone 6 mg IV push and vitamin supplements 01/24: Patient is status post trach and PEG tube done yesterday by Dr. Olivares. Patient is off Nimbex and he has his eyes open but not following commands. Patient's is planning to come in today to see him. He remains on ventilator with tidal volume 300, FiO2 50 and PEEP of 10. Repeat chest x-ray reveals diffuse bilateral infiltrate stable. Antibiotics have been changed to ce fepime and patient started on IV Voriconazole. Patient is continued on dexamethasone, Lovenox and vitamin supplements. WBC 17.2, hemoglobin 12.3. Sodium 130, BUN 21 creatinine 0.83. Total bilirubin 2, AST 54, ALT 248, alkaline phosphatase 132. Capillary blood glucose running between 80 and 193. 01/25: Patient remains in the intensive care unit on mechanical ventilation with tidal volume 400, FiO2 is been increased to 100 and PEEP of 12. Patient is currently on propofol, and was started on vasopressors yesterday and is status post 2 L of IV fluid. Temperature max 101.3. Pulse 87, respiratory rate 33, blood pressure 120/57, pulse ox 95%. 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 Repeat blood work reveals WBC 8.3, hemoglobin 11. Sodium 136, chloride 108. Creatinine is 0.83. Calcium 7.9. Total bilirubin 2.7, AST 64, ALT 171, alkaline phosphatase 127. LDH 1187. C-reactive protein 32.6. Blood sugars are running between 133 and 173. Urine culture is showing gram-negative bacilli. Blood culture from 01/24 showing no growth at 24 hours. Repeat chest x-ray reveals clear to megaly with bilateral confluent mid to lower lung opacities consistent with: 19 infection redemonstrated. No significant change. Patient is currently on cefepime, Zyvox and there, so for worsening bilateral pulmonary infiltrate, pneumonia. 01/26: Patient remains in intensive care unit on mechanical ventilation with tidal volume 450, FiO2 80 and PEEP of 12. He has been afebrile for greater than 24 hours. Heart rate 80, blood pressure 132/70, pulse ox 86%. He does have leaking around the tracheostomy site. Repeat blood work reveals WBC 8, hemoglobin 11.1, platelet count 291. Sodium 135, potassium 5.8, creatinine 1.15. Total bilirubin 1.8, AST 101, ALT 194, alkaline phosphatase 135. LDH 1156. C-reactive protein 35.7. Blood sugars are running between 154 and 183. Patient will be started on Levemir 10 units at bedtime. He is continued on cef epime, Zyvox and voriconazole. 01/27: Patient remains intubated and on mechanical ventilation with tidal volume 400 50, FiO2 60, PEEP of 12. Plan is to try and wean oxygen down today. Tracheostomy tube has been manipulated and repositioned. He is not requiring vasopressors, currently on propofol. Chest x-ray reveals no significant interval change. Patient has had good urine output with BUN of 37 creatinine 1.28. Other lab work reveals WBC 9.8, hemoglobin 10.7. D-dimer 5.45. Total bilirubin 1.4, AST 153, ALT 282, alkaline phosphatase 138, LDH 1073. C-reactive protein 16.3. ProCalcitonin 10.1. 01/28: Remains in the intensive care unit, intubated and on mechanical ventilation with tidal volume 450, FiO2 of 60 and PEEP of 10. Patient is responsive, follows a few simple commands. He is currently on antibiotics in the form of cefepime, Zyvox and voriconazole. Patient is also continued on Decadron and Lovenox. Repeat blood work reveals WBC of 10, hemoglobin 10.5. D- dimer 5.63. C-reactive protein 6.2. LDH 1025. Total bilirubin 1.3, AST 95, ALT 250. Patient is on tube feedings at goal. He has had good urine output. Social work will start process for discharge to select specialty with anticipation of him being ready by the end of the week. 01/29 patient is currently in the ICU on with tracheostomy with tidal volume 450 FiO2 decreased to 55 this morning with PEEP of 10. Patient is responsive get agitated once propofol is discontinued. Patient is getting of diarrheal ordered every few hours to help with pain control. Currently stays on antibiotic in the form of cefepime, Zyvox and voriconazole. Urine output is appropriate in her on 75 200 mL per hour. Continues to remain on Decadron and Lovenox. He's currently off norepinephrine off Precedex is off fentanyl. Chest x-ray reviewed has bilateral interstitial infiltrate not changed. Labs reviewed, WBC 11.1 h emoglobin is 11.4 R blood gas this morning on 60% FiO2 suggest EF pO2 of 65 bicarb 26 blood sugar controlled ranging from 156-197. Ventilator management per pulmonary as reduce the FiO2 to 55 . Repeat blood gas in 24 hours. Patient initiating Seroquel 50 twice a day for agitation. Discussion with the nurse was made to reduce the Seroquel to 25 twice a day if patient appears to be sedated 01/30: Patient remains in intensive care unit, intubated status post tracheostomy and PEG tube placement. He is on tidal volume 450, FiO2 of 50 and PEEP is down to 10. He is able to follow some simple commands. Pulmonary medicine is planning to discontinue propofol and switched to Precedex. He is on tube feedings. Social work is following for possible discharge to [facility] by the end of the week. 01/31: Patient remains in the intensive care unit intubated and on mechanical ventilation status post PEG tube and trach. Tidal volume 450, FiO2 50 and PEEP of 10. Patient is on propofol. He is on PEG tube feedings at goal. Patient is continued on Lovenox, Decadron, supplements. Cefepime has been discontinued and he is continued on Zyvox and 4, his old. Social work is following closely for discharge planning however at this time, there are no facilities that will accept the patient. REVIEW OF SYSTEMS. Unable to obtain due to mechanical ventilation PHYSICAL EXAMINATION Gen: This is a 55-year-old male. He is resting in ICU bed, on mechanical ventilation status post trach and PEG, appears to be comfortable. HEENT: Head is atraumatic, normocephalic. Pupils equal, round. Sclerae is anicteric. Tracheostomy intact. NECK: Supple. No JVD. No lymphadenopathy. LUNGS: Crackles bilaterally. No accessory muscle usage. No intercostal retractions. HEART: Regular rate and rhythm. No murmur. ABDOMEN: Soft. Bowel sounds are present. No masses. No tenderness. PEG tube in place. EXTREMITIES: No pedal edema. No calf tenderness. NEUROLOGICAL: Patient is awake, and able to follow simple commands. ASSESSMENT AND PLAN 1. Acute hypoxic respiratory failure secondary to Covid 19 pneumonia and possible secondary pneumonia, gram-negative and fungal. Patient required intubation 01/14. Patient is status post trach and PEG tube placement 01/[address] Olivares. Patient started on Remdesivir was discontinued by pulmonary, on January 12/2021 started on baricinib 4 mg daily, Baricitinib discontinued on 01/24. Continue dexamethasone, Lovenox, Zyvox, voriconazole, continue ventilator y management per precision instrument maker. 2. Acute respiratory distress syndrome secondary to coronavirus pneumonia. 3. Acute septic shock requiring vasopressors. Patient is status post IV fluid bolus and off vasopressors. 4. History of bilateral pulmonary emboli and DVT in 2015. CTA negative for PE. Not on chronic anticoagulation. 5. Acute transaminitis secondary to Covid 19. 6. Generalized osteoarthritis. 7. Degenerative changes in the cervical spine status post fusion of C5-6. 8. 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 9. Elevated liver function tests, transaminitis. 10. Hyperglycemia secondary to steroids. Patient is on NovoLog scale, Levemir 10 units at bedtime added. 11. Severe hyperkalemia status post IV push calcium gluconate, dextrose and regular insulin, IV push sodium bicarb. 12. GI prophylaxis. Protonix. 13. DVT prophylaxis. Lovenox. 14. Acute agitation on ventilator area precision instrument maker has increased Seroquel to 150 mg twice daily. DISCHARGE PLAN TBD Impression and plan of care have been directed as dictated by the signing p melody. Shakila Mosqueda nurse practitioner acting as scribe for signing physician. Objective - Vital Signs Vital signs: Vital Signs Temp 99.9 F H 01/31/21 12:00 Pulse 89 01/31/21 12:00 Resp 27 H 01/31/21 12:00 BP 136/87 01/31/21 07:00 Pulse Ox 91 L 01/31/21 12:00 Intake & Output 01/30/21 01/31/21 01/31/21 18:59 06:59 18:59 Intake Total 3684.036 4136 957.830 Output Total 1125 1275 800 Balance 451.289 7 157.830 Weight 107.5 kg Intake: IV 780 576 538 Cefepime 2 gm In Sodium 100 Chloride 0.9% 100 ml @ 25 mls/hr IVPB Q8HR [facility]AD[facility] Rx# :[id number] Linezolid 600 mg In 300 300 300 Dextrose/Water 1 300ml. bag @ 150 mls/hr IVPB Q12H [facility] Rx#:[id number] Pressure Bags 60 36 18 Sodium Chloride 0.9% 1, 220 240 120 000 ml @ 20 mls/hr IV . Q24H [facility] Rx#:[id number] Voriconazole 200 mg In 100 100 Sodium Chloride 0.9% 100 ml @ 125 mls/hr IVPB Q12HR BRADY Rx#:[id number] Intake, IV Titration 293.289 400 134.830 Amount Dexmedetomidine/0.9% NaCl 15.591 (Pmx) 400 mcg In Empty Bag 1 bag @ 0.2 MCG/KG/HR 5.135 mls/hr IV .[id number] [facility]ADY Rx#:[id number] propofoL 1,000 mg In 277.698 400 134.830 Empty Bag 1 bag @ Titrate IV .Q0M BRADY Rx#: [id number] Tube Feeding 253 276 115 Other 250 30 170 Output: Urine 1125 1275 800 Other: Voiding Method Indwelling Catheter Indwelling Catheter Indwelling Catheter ABP, PAP, CO, CI - Last Documented Arterial Blood Pressure 142/59 - Labs CBC & Chem 7: 01/31/21 04:05 01/31/21 04:05 Labs: Abnormal Lab Results - Last 24 Hours (Table) 01/30/21 01/31/21 01/31/21 Range/Units 17:42 01:07 04:05 WBC 10.8 H (3.8-10.6) k/uL RBC 3.68 L (4.30-5.90) m/uL Hgb 11.4 L (13.0-17.5) gm/dL Hct 35.1 L (39.0-53.0) % Lymphocytes # (Manual) 0.97 L (1.0-4.8) k/uL Eosinophils # (Manual) 0.86 H (0-0.7) k/uL Metamyelocytes # (Man) 0.86 H (0) k/uL Myelocytes # (Manual) 0.22 H (0) k/uL ABG pH (7.35-7.45) ABG pO2 (83-108) mmHg ABG HCO3 (21-25) mmol/L ABG Total CO2 (19-24) mmol/L ABG O2 Saturation (94-97) % BUN (9-20) mg/dL Glucose (74-99) mg/dL POC Glucose (mg/dL) 194 H 145 H (75-99) mg/dL ALT (4-49) U/L Alkaline Phosphatase (38-126) U/L Total Protein (6.3-8.2) g/dL Albumin (3.5-5.0) g/dL 01/31/21 01/31/21 01/31/21 Range/Units 04:05 04:46 11:31 WBC (3.8-10.6) k/uL RBC (4.30-5.90) m/uL Hgb (13.0-17.5) gm/dL Hct (39.0-53.0) % Lymphocytes # (Manual) (1.0-4.8) k/uL Eosinophils # (Manual) (0-0.7) k/uL Metamyelocytes # (Man) (0) k/uL Myelocytes # (Manual) (0) k/uL ABG pH 7.46 H (7.35-7.45) ABG pO2 58 L* (83-108) mmHg ABG HCO3 27 H (21-25) mmol/L ABG Total CO2 28 H (19-24) mmol/L ABG O2 Saturation 92.0 L (94-97) % BUN 33 H (9-20) mg/dL Glucose 104 H (74-99) mg/dL POC Glucose (mg/dL) 157 H (75-99) mg/dL ALT 110 H (4-49) U/L Alkaline Phosphatase 127 H (38-126) U/L Total Protein 5.9 L (6.3-8.2) g/dL Albumin 2.8 L (3.5-5.0) g/dL Microbiology - Last 24 Hours (Table) 01/24/21 10:22 Blood Culture - Final Blood No Growth after 144 hours
[2021-01-31 17:49] LABS: Glucose,Whole Blood 138 mg/dL (75-99)
[2021-01-31] MEDS: DEXMEDETOMIDINE/0.9% NACL(PMX) 400 MCG in EMPTY BAG 1 BAG IV SCH (18:04)
[2021-01-31] MEDS: QUEtiapine 100 MG TAB PO SCH (21:49)
[2021-01-31] MEDS: INSULIN DETEMIR (LEVEMIR) 100 UNIT/ML SYR SQ SCH (21:49)
[2021-02-01 00:41] LABS: Glucose,Whole Blood 123 mg/dL (75-99)
[2021-02-01] MEDS: NOREPINEPHRINE 4 MG in SODIUM CHLORIDE 0.9% 250 ML IV SCH ×2 (00:55→13:02)
[2021-02-01] MEDS: INSULIN ASPART (NovoLOG) 100 UNIT/ML VIAL SQ SCH ×4 (00:56→17:36)
[2021-02-01 04:44] LABS: ALT 84 U/L (4-49); AST 23 U/L (17-59); African American GFR (CKD) >90 (>60 ml/min/1.73 sqM); Albumin 2.6 g/dL (3.5-5.0); Alkaline Phosphatase 114 U/L (38-126); Anion Gap 5 mmol/L; Blood Urea Nitrogen 31 mg/dL (9-20); Calcium 8.4 mg/dL (8.4-10.2); Carbon Dioxide 26 mmol/L (22-30); Chloride 107 mmol/L (98-107); Glucose 178 mg/dL (74-99); Non-African American GFR(CKD) 87 (>60 ml/min/1.73 sqM); Potassium 3.9 mmol/L (3.5-5.1); Sodium 138 mmol/L (137-145); Total Bilirubin 0.7 mg/dL (0.2-1.3); Total Protein 5.4 g/dL (6.3-8.2)
[2021-02-01 05:38] LABS: Basophils % (A) 0 %; Eosinophils # (A) 0.4 k/uL (0-0.7); Eosinophils % (A) 4 %; HGB 10.4 gm/dL (13.0-17.5); Lymphocytes # (A) 0.6 k/uL (1.0-4.8); Lymphocytes % (A) 7 %; MCH 30.9 pg (25.0-35.0); MCHC 32.5 g/dL (31.0-37.0); MCV 94.9 fL (80.0-100.0); Mean Platelet Volume 8.4; Monocytes # (A) 0.4 k/uL (0-1.0); Monocytes % (A) 4 %; Neutrophils # (A) 7.8 k/uL (1.3-7.7); Neutrophils % (A) 85 %; Platelet Count 261 k/uL (150-450); RBC 3.37 m/uL (4.30-5.90); RDW 13.5 % (11.5-15.5); WBC 9.2 k/uL (3.8-10.6)
[2021-02-01 06:01] LABS: ABG HCO3 26 mmol/L (21-25); ABG Oxygen Saturation 93.2 % (94-97); ABG PCO2 40 mmHg (35-45); ABG PH 7.43 (7.35-7.45); ABG PO2 63 mmHg (83-108); ABG TCO2 28 mmol/L (19-24); Allen Test Performed? Yes
[2021-02-01] MEDS ORDERED: POTASSIUM BICARBONATE/CIT AC 20 MEQ TABLET.EFF NG-TUBE SCH (08:00)
[2021-02-01] MEDS: LACTULOSE 20 GM/30 ML CUP PO SCH (08:13)
[2021-02-01] MEDS: CHOLECALCIFEROL 25 MCG (1000 IU) TABLET PO SCH (08:14)
[2021-02-01] MEDS: ZINC SULFATE 220 MG CAP PO SCH (08:14)
[2021-02-01] MEDS: CHLORHEXIDINE GLUCONATE 15 ML CUP MUCOUS MEM SCH ×2 (08:14→20:27)
[2021-02-01] MEDS: PANTOPRAZOLE 40 MG/10 ML VIAL IVP SCH (08:14)
[2021-02-01] MEDS: DEXAMETHASONE SOD PHOSPHATE 10 MG/ML 1 ML VIAL IVP SCH ×2 (08:14→20:27)
[2021-02-01] MEDS: ENOXAPARIN 40 MG/0.4 ML SYRINGE SQ SCH (08:15)
[2021-02-01] MEDS: ASCORBIC ACID 500 MG TAB PO SCH (08:15)
[2021-02-01] MEDS: QUEtiapine 100 MG TAB PO SCH ×2 (08:21→20:27)
[2021-02-01] MEDS: VORICONAZOLE 200 MG in SODIUM CHLORIDE 0.9% 100 ML IVPB SCH ×2 (08:38→20:27)
--- NOTE | 2021-02-01 10:31 | P.PN ---
<Karlie Walker - Last Filed: 02/01/21 10:28> Subjective Progress Note Date: 02/01/21 CHIEF COMPLAINT: COVID-19 pneumonia HISTORY OF PRESENT ILLNESS: Patient in the ICU and requiring mechanical ventilation. Patient is status post trach and PEG tube placement. Patient is able to maintain his tidal volumes. He is still having some leaking of air from the trach site. He is also tolerating his tube feeds. His PEG tube feedings are at goal. No residual. He is having bowel movements. Afebrile. WBC 10.2 Patient no longer in Covid isolation PHYSICAL EXAM: VITAL SIGNS: Reviewed. GENERAL: Well-developed in no acute distress. HEENT: No sclera icterus. Extraocular movements grossly intact. Moist buccal mucosa. Head is atraumatic, normocephalic. Tracheostomy site clean dry and intact ABDOMEN: Soft. Nondistended. Nontender. PEG tube site clean dry and intact NEUROLOGIC: Awake ASSESSMENT: 1. Acute hypoxic respiratory failure secondary to COVID-19 pneumonia status post tracheostomy placement 2. Severe protein calorie malnutrition status post PEG tube placement PLAN: -Continue to monitor tracheostomy air leak -Continue ICU management -Continue supportive care Physician Alarm Security Or Surveillance Monitor note has been reviewed by physician. Signing provider agrees with the documented findings, assessment, and plan of care. Objective - Vital Signs Vital signs: Vital Signs Temp 98.4 F 02/01/21 08:00 Pulse 78 02/01/21 09:00 Resp 28 H 02/01/21 09:00 BP 122/68 02/01/21 07:00 Pulse Ox 91 L 02/01/21 09:00 Intake & Output 01/31/21 02/01/21 02/01/21 18:59 06:59 18:59 Intake Total 1479.912 955.419 491 Output Total 1525 885 400 Balance -45.088 70.419 91 Weight 107.5 kg Intake: IV 676 353 269 Linezolid 600 mg In 300 Dextrose/Water 1 300ml. bag @ 150 mls/hr IVPB Q12H [facility] Rx#:[id number] Pressure Bags 36 33 9 Sodium Chloride 0.9% 1, 240 220 60 000 ml @ 20 mls/hr IV . Q24H [facility] Rx#:[id number] Voriconazole 200 mg In 100 100 200 Sodium Chloride 0.9% 100 ml @ 125 mls/hr IVPB Q12HR [facility] Rx#:[id number] Intake, IV Titration 320.912 259.419 100 Amount propofoL 1,000 mg In 320.912 259.419 100 Empty Bag 1 bag @ Titrate IV .Q0M [facility] Rx#: [id number] Tube Feeding 253 253 92 Other 230 90 30 Output: Urine 1525 885 400 Other: Voiding Method Indwelling Catheter Indwelling Catheter Indwelling Catheter ABP, PAP, CO, CI - Last Documented Arterial Blood Pressure 116/61 - Labs CBC & Chem 7: 02/01/21 04:10 02/01/21 04:10 Labs: Abnormal Lab Results - Last 24 Hours (Table) 01/31/21 01/31/21 02/01/21 Range/Units 11:31 17:48 00:39 RBC (4.30-5.90) m/uL Hgb (13.0-17.5) gm/dL Hct (39.0-53.0) % Neutrophils # (1.3-7.7) k/uL Lymphocytes # (1.0-4.8) k/uL ABG pO2 (83-108) mmHg ABG HCO3 (21-25) mmol/L ABG Total CO2 (19-24) mmol/L ABG O2 Saturation (94-97) % BUN (9-20) mg/dL Glucose (74-99) mg/dL POC Glucose (mg/dL) 157 H 138 H 123 H (75-99) mg/dL ALT (4-49) U/L Total Protein (6.3-8.2) g/dL Albumin (3.5-5.0) g/dL 02/01/21 02/01/21 02/01/21 Range/Units 04:10 04:10 05:56 RBC 3.37 L (4.30-5.90) m/uL Hgb 10.4 L (13.0-17.5) gm/dL Hct 32.0 L (39.0-53.0) % Neutrophils # 7.8 H (1.3-7.7) k/uL Lymphocytes # 0.6 L (1.0-4.8) k/uL ABG pO2 63 L (83-108) mmHg ABG HCO3 26 H (21-25) mmol/L ABG Total CO2 28 H (19-24) mmol/L ABG O2 Saturation 93.2 L (94-97) % BUN 31 H (9-20) mg/dL Glucose 178 H (74-99) mg/dL POC Glucose (mg/dL) (75-99) mg/dL ALT 84 H (4-49) U/L Total Protein 5.4 L (6.3-8.2) g/dL Albumin 2.6 L (3.5-5.0) g/dL <Johnathon Calderón - Last Filed: 02/01/21 16:50> Subjective As above. No new issues with the patient's trach or PEG tube. He is tolerating tube feeds at goal. Continue ICU care. Objective - Vital Signs Vital signs: Vital Signs Temp 98.7 F 02/01/21 16:00 Pulse 79 02/01/21 16:00 Resp 23 02/01/21 16:00 BP 122/68 02/01/21 07:00 Pulse Ox 92 L 02/01/21 16:00 Intake & Output 01/31/21 02/01/21 02/01/21 18:59 06:59 18:59 Intake Total 1479.912 807.622 7036.578 Output Total 6421 521 2546 Balance -45.088 70.419 -117.422 Weight 107.5 kg Intake: IV 998 360 8470 Linezolid 600 mg In 300 600 Dextrose/Water 1 300ml. bag @ 150 mls/hr IVPB Q12H [facility] Rx#:[id number] Pressure Bags 36 33 30 Sodium Chloride 0.9% 1, 240 220 200 000 ml @ 20 mls/hr IV . Q24H [facility] Rx#:[id number] Voriconazole 200 mg In 100 100 200 Sodium Chloride 0.9% 100 ml @ 125 mls/hr IVPB Q12HR [facility] Rx#:[id number] Intake, IV Titration 320.912 259.419 198.578 Amount propofoL 1,000 mg In 320.912 259.419 198.578 Empty Bag 1 bag @ Titrate IV .Q0M [facility] Rx#: [id number] Tube Feeding 253 253 319 Other 230 90 60 Output: Urine 1388 435 6070 Other: Voiding Method Indwelling Catheter Indwelling Catheter Indwelling Catheter ABP, PAP, CO, CI - Last Documented Arterial Blood Pressure 146/60 - Labs CBC & Chem 7: 02/01/21 04:10 02/01/21 04:10 Labs: Abnormal Lab Results - Last 24 Hours (Table) 01/31/21 02/01/21 02/01/21 Range/Units 17:48 00:39 04:10 RBC 3.37 L (4.30-5.90) m/uL Hgb 10.4 L (13.0-17.5) gm/dL Hct 32.0 L (39.0-53.0) % Neutrophils # 7.8 H (1.3-7.7) k/uL Lymphocytes # 0.6 L (1.0-4.8) k/uL ABG pO2 (83-108) mmHg ABG HCO3 (21-25) mmol/L ABG Total CO2 (19-24) mmol/L ABG O2 Saturation (94-97) % BUN (9-20) mg/dL Glucose (74-99) mg/dL POC Glucose (mg/dL) 138 H 123 H (75-99) mg/dL ALT (4-49) U/L Total Protein (6.3-8.2) g/dL Albumin (3.5-5.0) g/dL 02/01/21 02/01/21 02/01/21 Range/Units 04:10 05:56 11:39 RBC (4.30-5.90) m/uL Hgb (13.0-17.5) gm/dL Hct (39.0-53.0) % Neutrophils # (1.3-7.7) k/uL Lymphocytes # (1.0-4.8) k/uL ABG pO2 63 L (83-108) mmHg ABG HCO3 26 H (21-25) mmol/L ABG Total CO2 28 H (19-24) mmol/L ABG O2 Saturation 93.2 L (94-97) % BUN 31 H (9-20) mg/dL Glucose 178 H (74-99) mg/dL POC Glucose (mg/dL) 167 H (75-99) mg/dL ALT 84 H (4-49) U/L Total Protein 5.4 L (6.3-8.2) g/dL Albumin 2.6 L (3.5-5.0) g/dL
--- NOTE | 2021-02-01 10:38 | XR ---
EXAMINATION TYPE: XR chest 1V portable DATE OF EXAM: 02/01/2021 COMPARISON: Chest x-ray 01/31/2021 HISTORY: Shortness of breath TECHNIQUE: Single frontal view of the chest is obtained. FINDINGS: Tracheostomy tube is overlying the tracheal air column, is a right-sided PICC line with di stal tip overlying superior vena cava. No evident pneumothorax or pleural effusion. Bilateral airspac e disease persists. There are overlying artifacts. Cardiac mediastinal silhouette is stable. Postop c hange noted to the cervical spine. IMPRESSION: There is no significant interval change. Correlate for pneumonia, ARDS.
[2021-02-01] MEDS: LINEZOLID 600 MG in DEXTROSE/WATER 1 300ML.BAG IVPB SCH (10:40)
[2021-02-01 11:41] LABS: Glucose,Whole Blood 167 mg/dL (75-99)
[2021-02-01] MEDS ORDERED: FUROSEMIDE 10 MG/ML 4 ML VIAL IV STA (12:09)
--- NOTE | 2021-02-01 12:37 | P.PN ---
Subjective Progress Note Date: 02/01/21 Principal diagnosis: Acute hypoxic respiratory failure secondary to COVID-19 pneumonia 01/27/2021, the patient's condition has a more stabilized. Since yesterday, the patient was taken off paralytics and the patient is currently on propofol running at 75 mcg/kg per minute. He seems to be quite intense a mechanical ventilator. He is also arousable with stimulation. He does have some occasional cough. No spontaneous eye opening. He is quite synchronous with the mechanical ventilator. I have him on VC plus mode at the rate of 22 with a tidal volume of 450 and PEEP of 12 and FiO2 is currently down to 60%. Chest x- ray shows bilateral pulmonary infiltrates, slightly improved compared to yesterday. He was having significant amount of air leak around his tracheostomy tube and we were able to manage that with some had manipulation and positioning of the tracheostomy tube. The patient has a #[address] tube in place. On today's evaluation, the leaks are minimal. His peak airway pressures around 33. 70 pressures around 30. The patient had a blood gas today that showed a pH of 7.39 with a pCO2 of 45 and a pO2 of 61 and this was on FiO2 of 60%. The sputum sample is positive for Aspergillus and charity bacterium and the patient remains on a broad-spectrum antibiotics including Zyvox, voriconazole, and IV cefepime. His urine culture also belt turner to be positive for E. coli. Meanwhile, the patient is hemodynamically stable. I'm a bit concerned about his kidney function. Creatinine today was up to 1.28 and the patient is producing adequate amount of urine output in the order of 50-60 mL an hour. In terms of his inflammatory markers, the patient has a d-dimer of 5.45 and LDH is 1073, improved compared to yesterday and his CRP level is down to 16.3. Meanwhile, he is still being treated with Decadron at a dose of 60 mg IV every 24 hours. He was taken off the Baricitinib several days ago. He remains on Lovenox for DVT prophylaxis at a dose of 40 mg subcu every 24 hours. He remains on Levemir insulin 10 units a day in addition to NovoLog sliding scale coverage. No other significant events overnight. He did have a bout of hyperkalemia and the potassium level was as high as 6.2 and this was managed appropriately and the potassium level is improved. Hemodynamically stable. No pressors. Liver function tests have been abnormal yet stable. The patient has not produced any bowel movement activity at. The patient was started on lactulose. Reevaluated today on 01/28/2021, patient remains in the ICU, intubated and mechanically ventilated. Patient is on volume control plus the rate of 20 to tell volume 450 FiO2 60% PEEP of 10. ABG showed a pO2 of 65 pCO2 39 pH of 7.42 on 50% FiO2. Remains on propofol at 55 mcg/kg/m, not requiring any other sedatives, he is off paralytics. Patient is status post tracheostomy and PEG tube placement on 01/23. Patient is on enteral feeding using vital AF at 1 3 mL per hour. He is also on Decadron at 60 mg IV push twice a day. Patient is arousable, follows very simple instructions. Chest x-ray continues to show bilateral Infiltrates, right more so than left. Tracheostomy seems to be intact. ABC is relatively normal d-dimer is 5.63 electrolytes are normal , BUN is 38 creatinine 1.18 liver enzymes are a bit elevated ALT of 250 AST of 95 LDH is 1025 C-reactive protein 6.2. Patient remains on the COVID-19 cocktail, he is also on voriconazole. Zyvox. Decadron 6 mg IV push twice a day. Cefepime. Reevaluated today on 01/29/2021, remains intubated and mechanically ventilated. Patient is on volume control plus of 450, rate 22 FiO2 60% PEEP of 10 ABG showed a pO2 of 65 pCO2 of 37 pH of 7.45. Hence no changes were made in the ventilator settings. LDH remains elevated at 135 to propofol is at 55, patient is off norepinephrine, off Precedex, he is off fentanyl, and he is doing relatively well considering his overall picture, patient had intermittent episodes of a gitation and restlessness, and I have recommended we start the patient on Seroquel 50 mg twice a day. And hopefully can titrate the upper fall down and possibly discontinue. Chest x-ray continues to show bilateral interstitial infiltrates, not much of the changes noted on the chest x-ray. WBC count today is 11.1 hemoglobin 11.4. Basic metabolic profile is normal BUN is 39 creatinine is 1.05. LDH is noted to be a bit elevated today compared to yesterday 1352. Reevaluated today on 01/30/2021, remains in the ICU, intubated, patient is status post tracheostomy and PEG tube placement, he is on assist control rate of 22 volume control +450 FiO2 50% PEEP is at 10. Patient remains on propofol, he is at 50 mcg/kg/m, arousable, follows very simple instructions, hence I plan to discontinue propofol altogether and switch the patient to Precedex. Patient remains on enteral feedings, tolerating enteral feedings well, patient is not requiring any pressors, he is hemodynamically stable. Chest x-ray continues to show bilateral infiltrates. CBC today showed the reset of 9.2 hemoglobin 10.6. ABG today showed a pO2 of 65 pCO2 of 43 pH of 7.41 this is on a 55% FiO2. Basic metabolic profile is normal renal profile is improved with BUN 34 creatinine 1.16. Reevaluated today on 01/31/2021, patient remains in the ICU, intubated and mechanically ventilated. He is on assist control rate of 22, volume control +450 FiO2 50% PEEP is at 10. ABG showed a pO2 of 58 pCO2 of 38 pH of 7.46. Patient is still requiring propofol, he could not tolerate switching propofol to Precedex as he became extremely agitated and restless tachypneic and tachycardic, hence he was placed back on propofol at 60 mcg/kg/m. Chest x-ray continues to show bilateral infiltrates. Improved compared to his initial baseline chest x-ray. CBC is relatively unremarkable electrolytes are unremarkable. Renal profile is normal. Patient remains on enteral feeding via PEG tube. Remains on the COVID-19 cocktail, remains on Decadron. Remains on Lovenox 40 mg subcu daily. He is on Dilaudid when necessary. Remains on Protonix, Seroquel was added a few days ago, and I will likely increase the dose. Patient is still on Zyvox and he is on voriconazole. Patient is off cefepime. Reevaluated today on 02/01/2021, patient remains in the ICU, intubated and mechanically ventilated, continues to have tracheostomy in place, and seems to be intact. Patient is awake, maintain on propofol at 40 mcg/kg/m, however I have instructed the nursing staff today to cut down the propofol and hopefully discontinued if possible as long as the patient remains calm and not agitated. We have tried in the past titrating propofol and with dried Precedex on this patient, and nothing seems to help, however I went ahead and increased his dose of Seroquel. Hoping we could get the patient off propofol. Patient is on volum e control +450 rate of 22 of 10 FiO2 50%. ABG is marginal with a pO2 of 63 pCO2 of 40 pH of 7.43. WBC count 9.2 hemoglobin 10.4 electrodes are normal renal profile is normal. Chest x-ray continues to show bilateral infiltrates, not much of a change noted. Medications lund, patient remains on Decadron 6 mg IV push twice a day, he is on Lovenox 40 mg subcu daily, lactulose, Zyvox, voriconazole, Seroquel 100 twice a day, Protonix 40 mg IV push daily, he is not requiring any pressors, and he is off cefepime. Objective - Vital Signs Vital signs: Vital Signs Temp 98.6 F 02/01/21 12:00 Pulse 68 02/01/21 12:00 Resp 14 02/01/21 12:00 BP 122/68 02/01/21 07:00 Pulse Ox 90 L 02/01/21 12:00 Intake & Output 01/31/21 02/01/21 02/01/21 18:59 06:59 18:59 Intake Total 1479.912 446.573 5022.229 Output Total 1525 885 800 Balance -45.088 70.419 212.229 Weight 107.5 kg Intake: IV 676 353 638 Linezolid 600 mg In 300 300 Dextrose/Water 1 300ml. bag @ 150 mls/hr IVPB Q12H [facility] Rx#:[id number] Pressure Bags 36 33 18 Sodium Chloride 0.9% 1, 240 220 120 000 ml @ 20 mls/hr IV . Q24H [facility] Rx#:[id number] Voriconazole 200 mg In 100 100 200 Sodium Chloride 0.9% 100 ml @ 125 mls/hr IVPB Q12HR [facility] Rx#:[id number] Intake, IV Titration 320.912 259.419 131.229 Amount propofoL 1,000 mg In 320.912 259.419 131.229 Empty Bag 1 bag @ Titrate IV .Q0M [facility] Rx#: [id number] Tube Feeding 253 253 183 Other 230 90 60 Output: Urine 1525 885 800 Other: Voiding Method Indwelling Catheter Indwelling Catheter Indwelling Catheter ABP, PAP, CO, CI - Last Documented Arterial Blood Pressure 141/65 - Exam Physical Exam: Revealed a 55-year-old white male in no distress. Intubated and mechanically ventilated via tracheostomy. Which seems to be intact. Head: Atraumatic, normocephalic. Tracheostomy is intact. HEENT:[Neck is supple.] [No neck masses.] [No thyromegaly.] [No JVD.] Intact tracheostomy is noted. Chest: Symmetrical chest expansion crackles at the bases bilaterally. Cardiac Exam: [Normal S1 and S2, no S3 gallop, no murmur.] Abdomen: [Soft, nontender, no megaly, no rebound, no guarding, normal bowel sounds.] PEG tube is intact. Extremities: 1+ bipedal edema, no clubbing, no cyanosis. Neurological Exam: Awake, follows simple instructions in spite of being on propofol. Profoundly weak. Psychiatric: Depressed mood, blunt affect, appropriate mental status Skin: No rashes. - Labs CBC & Chem 7: 02/01/21 04:10 02/01/21 04:10 Labs: Abnormal Lab Results - Last 24 Hours (Table) 01/31/21 02/01/21 02/01/21 Range/Units 17:48 00:39 04:10 RBC 3.37 L (4.30-5.90) m/uL Hgb 10.4 L (13.0-17.5) gm/dL Hct 32.0 L (39.0-53.0) % Neutrophils # 7.8 H (1.3-7.7) k/uL Lymphocytes # 0.6 L (1.0-4.8) k/uL ABG pO2 (83-108) mmHg ABG HCO3 (21-25) mmol/L ABG Total CO2 (19-24) mmol/L ABG O2 Saturation (94-97) % BUN (9-20) mg/dL Glucose (74-99) mg/dL POC Glucose (mg/dL) 138 H 123 H (75-99) mg/dL ALT (4-49) U/L Total Protein (6.3-8.2) g/dL Albumin (3.5-5.0) g/dL 02/01/21 02/01/21 02/01/21 Range/Units 04:10 05:56 11:39 RBC (4.30-5.90) m/uL Hgb (13.0-17.5) gm/dL Hct (39.0-53.0) % Neutrophils # (1.3-7.7) k/uL Lymphocytes # (1.0-4.8) k/uL ABG pO2 63 L (83-108) mmHg ABG HCO3 26 H (21-25) mmol/L ABG Total CO2 28 H (19-24) mmol/L ABG O2 Saturation 93.2 L (94-97) % BUN 31 H (9-20) mg/dL Glucose 178 H (74-99) mg/dL POC Glucose (mg/dL) 167 H (75-99) mg/dL ALT 84 H (4-49) U/L Total Protein 5.4 L (6.3-8.2) g/dL Albumin 2.6 L (3.5-5.0) g/dL Assessment and Plan Assessment: Impression: Acute hypoxic respiratory failure secondary to COVID-19 pneumonia, intubated on 01/14, treated initially with Decadron and baricitinib, underwent tracheostomy on 01/23 and PEG tube placement. Developed superinfection requiring antibiotics and antifungal treatment. Sputum cultures have grown Aspergillus and corynebacterium. Patient is now on Zyvox, and voriconazole. And he is off bar icitinib, ARDS associated with COVID-19 pneumonia Degenerative joint disease Aspergillus fumigatus and sputum, hence voriconazole was added. Elevated liver enzymes secondary to COVID-19 infection Acute sepsis secondary to pneumonia and suspect septic shock, required pressors for a short period of time. Acute kidney injury secondary to COVID-19 infection/pneumonia. Suspect critical illness polyneuropathy Patient will need a long course of rehabilitation. Recommendation: Continue ventilatory support, continue to titrate the FiO2 accordingly. No changes were made on his ventilator settings, patient will remain on volume control plus of 450 rate of 22 PEEP of 10 FiO2 50%. Continue tracheostomy care. Taper and possibly discontinue propofol. Continue antibiotics and antifungals for now. Continue enteral feeding and nutritional support. Continue Lovenox. Continue Decadron. Continue COVID-19 cocktail. Overall prognosis remains relatively guarded patient remains critically ill. Patient is not ready to be weaned or D cannulated from mechanical ventilation at this point yet. Critical care time is over 30 minutes. Time with Patient: Greater than 30
[2021-02-01] MEDS: DEXMEDETOMIDINE/0.9% NACL(PMX) 400 MCG in EMPTY BAG 1 BAG IV SCH (13:21)
[2021-02-01] MEDS: SODIUM CHLORIDE 0.9% 1,000 ML IV SCH (14:35)
--- NOTE | 2021-02-01 14:47 | P.PN ---
Subjective Progress Note Date: 02/01/21 HISTORY OF PRESENT ILLNESS This is a 55-year-old male patient of Dr. 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 Patient states he has not been feeling well since Thursday. He said shortness of breath cough is nonproductive along with fever and chills, exertional dyspnea. He denies having any nausea vomiting or diarrhea. He denies any close contacts to known Covid people. He states his temperature is been up to 102.7 at home. He is not vaccinated. Patient presented to [facility] emergency center and found to be febrile at 101.1, heart rate 90, blood pressure 122/80, pulse ox 85% on room air. CBC revealed platelet count of 128. D-dimer 0.82. Sodium 131 otherwise electrolytes and renal function were normal. Blood sugar 147. Troponin negative. Coronavirus PCR positive. Chest x-ray reveals patchy bilateral airspace disease especially in the mid and lower lungs. Correlate for multifocal pneumonia including Covid 19 pneumonia. CTA of the chest was suboptimal study without central acute pulmonary embolism. Bilateral multifocal and confluent groundglass opacities right greater than left and greater in the lower lungs consistent with known Covid 19 infection. Patient is seen today in the emergency center waiting for bed on the [facility] floor, started on Remdesivir, Lovenox, dexamethasone and vitamin supplements, consult with pulmonary medicine. 01/12: Patient is comfortable, however he requires 40 L of oxygen via airvo sats 88-89%, he feels better today compared to his nonrebreather mask yesterday, patient did not sleep well, patient does not have any cough, however he does have shortness of breath. Patient denies any aspiration, appetite is still marginal, patient has insomnia vitals, blood sugar currently is 243, creatinine of 0.98, d-dimer is 0.84, CRP is elevated, LDH is elevated, venous Doppler, shows chronic DVT, left popliteal, in the posterior tibial veins, without any obstruction of flow. No acute DVT identified CTA, shows suboptimal, without central acute pulmonary emboli, has bilateral multifocal and confluent groundglass opacities, right greater than left, lower lobe, consistent with COVID-19 infection and remdesivir discontinued by pulmonary today and is outside of the window for remdesivir 01/13: Patient is on aerosol 14 L, with nonrebreather mask, 15 L, hypoxemia n oted on 88%, worse with coughing, however his nonrebreather mask is very loose. Nurse is worriedwith the turn of events, and requested an ICU transfer, Dr. Canales has seen the patient, and is stable for floor management at this time, patient is not significant tachypnea, and is not tiring out. There is no hemoptysis, and mucus is productive, patient's doing incentive spirometry, up 2 L. 01/14: Patient remains in the intensive care unit, he was intubated this morning as he was desaturating with BiPAP. He has been afebrile, heart rate 73, blood pressure 93/47, pulse ox 90%. CBC is unremarkable. D-dimer 12.04. Sodium 135, creatinine 0.82. LDH 2929, C-reactive protein 5.2. Sputum culture is in progress. He has had good urine output. Chest x-ray reveals no evident convocation from catheters. Bilateral airspace disease. 01/15: Patient remains in the intensive care intubated and on mechanical ventilation with tidal volume 450, FiO2 80, PEEP of 15. Patient has been started on norepinephrine and remains on propofol, heparin drip, Nimbex. Repeat blood work revealed unremarkable CBC. Creatinine 0.88. Capillary blood glucose running between 195 and 215. AST 126, ALT 183, alkaline phosphatase 109. Sputum culture is in progress. Repeat chest x-ray reveals correlate for pneumonia versus edema, ARDS. Patient is continued on vitamin supplements, heparin drip, dexamethasone and Baricitinib. patient remains in intensive care intubated on mechanical ventilator at FiO2 60 percent PEEP respiratory rate of 30 tidal volume 450. Continues to maintain saturations between 94-95% on the current settings. Vitals otherwise stable labs reviewed today WBC is 9.5 hemoglobin 12.4 d-dimer is elevated at 4.98. ABG obtained today suggest pH of 7.4 pO2 53 bicarb 26 on 50% FiO2. Creatinine stable at 0.78 glucose is maintained between 145-190. LDH 1564 CRP is elevated at 4. Patient's inflammatory markers trending down. Patient's vent settings increased to 80% for inadequate oxygenation. Chest x-ray reviewed showed bilateral infiltrate consistent with coronavirus associated pneumonia. Patient continues intubated on propofol 70 bike but patient examined Nimbex 1.25 g daily per minute. Patient to receive 1 dose of Lasix today. Continue to remain on baricitinib day 2 PAtient remains intubaated since . patient continues too remain on assist control, TV 450 , peep 15 and fio2 of 60 %. patient was proned for 16 hours yesterday. CXR was reviewed, COVID pneumonia but no significant change was noted, Will repeat inflammatory markers tomorrow. Vent managment per flash welder. Patient contines to remain propofol , nimbex. Continue on lovenox, baricitinib, dexamethasone and vit supplement 01/18 patient continues to remain intubated. Covid pneumonia. Is currently on assist control respiratory rate of 30 tidal volume 450 FiO2 of 55% and PEEP of 15. She is currently on heparin drip, propofol and Nimbex. Patient continues to tolerate prone positioning 16 hours overnight. Continues to receive dexamethasone, vitamin supplement, anticoagulation with heparin, baricitinib. Labs are reviewed patient has a hemoglobin stable at 12.2. This morning pH 7.48 PCO2 44 bicarb 32 creatinine 0.73 AST 100 chest x-ray done this morning suggestive of ARDS and pneumonia 01/19 patient continues to remain intubated currently on assist-control vent with a rate of 30 tidal volume 450 FiO2 50 and PEEP of 15. Continues to remain on propofol and Nimbex. Continue heparin drip for anticoagulation. Remains on Baricitinib , vitamin supplementation and dexamethasone. Labs reviewed hemoglobin stable at 12 PTT 53 blood gas obtained today suggest a pH of 7.45 pCO2 46 pO2 69 bicarb 32 BUN 23 creatinine 0.0.8 glucose 122 AST ED ALT 226. inflammation markers ordered for tomorrow last set was obtained on 01/12 01/20 Intubated. Vitals reviewed patient's afebrile pulse of 68 respiratory rate 30 blood pressure. 94/56 oxygen 91% on 50% FiO2. Patient remains on assist control, tidal volume 450 respiratory rate 30 FiO2 of 50% and PEEP of 15. He is currently on Pneumovax at 3 mics per KG per minute propofol at 50 Micro-K to Coumadin and heparin drip. Patient labs are reviewed hemoglobin is 11.7. Arterial blood gas at 50% FiO2 has a pH of 7.47 pO2 of 77 bicarb of 31 BUN 24 creatinine 0.7 LDH [id number] CRP 8.70. CRP is slightly elevated with improvement in LDH. Continue to monitor patient with the goal with treatment on heparin, as dexamethasone, vitamin supplementation and Baricitinib . Blood sugar are well controlled. 01/21: Patient remains intubated and on mechanical ventilation with tidal volume 400, FiO2 40 and PEEP of 16. Patient is on propofol and fentanyl drips. He is on tube feedings to be increased to 26 ML's per hour and tolerating. She he has had 100 250 ML's of urine output per hour. He has been afebrile, heart rate 70, respiratory rate 30, blood pressure 115/64, pulse ox 93%. Repeat blood work reveals WBC 7.4, hemoglobin 12, platelet count 310. D-dimer 1.23. Sodium 134, BUN 24 and creatinine 0.73. Blood sugars are running between 101 and 164. AST 105, ALT 261, alkaline phosphatase 135. LDH 999. C-reactive protein 13.5. Albumin 2.9. Gallbladder ultrasound reveals nonspecific pattern of liver can be seen with hepatic steatitis or hepatocellular disease including hepatitis. The chest x-ray reveals bilateral patchy airspace disease stable. 01/22: Remains in the intensive care unit intubated and on mechanical ventilation with tidal volume 400, FiO2 40, PEEP of 13. Paralytics for pause this morning and patient had significant drop in his pulse ox. He is currently on propofol, fentanyl and Nimbex. He has been afebrile, heart rate 73, blood pressure 99/63, pulse ox 90%. Repeat blood work reveals hemoglobin 11.6. Creatinine 0.81. Blood sugars are running between 98 and 155. AST 85, ALT 260, alkaline phosphatase 132. LDH 954, C-reactive protein 6.8. Repeat chest x-ray reveals bilateral patchy diffuse airspace disease stable. Patient is continued on Baricitinib, Lovenox 40 mg subcu daily, dexamethasone 6 mg IV push and vitamin supplements 01/23: Remains in the intensive care unit on mechanical ventilation with tidal volume 400, FiO2 40 and PEEP of 10. Patient is scheduled for trach and PEG tube placement today. He is currently on propofol, fentanyl and Nimbex. Patient remains afebrile, heart rate 69, respiratory rate 30, blood pressure 120/76, pulse ox 93%. Repeat blood work reveals creatinine is 0.71. WBC 8.3, hemoglobin 12.9. AST 111, ALT 328, alkaline phosphatase 153. Blood sugars have been running between 92 and 193. Sputum culture is showing Corynebacterium species from 01/21 and Aspergillus from 01/14. Repeat chest x-ray reveals bilateral patchy diffuse airspace disease stable. Patient is continued on Baricitinib, Lovenox 40 mg subcu daily, dexamethasone 6 mg IV push and vitamin supplements 01/24: Patient is status post trach and PEG tube done yesterday by Dr. Olivares. Patient is off Nimbex and he has his eyes open but not following commands. Patient's is planning to come in today to see him. He remains on ventilator with tidal volume 300, FiO2 50 and PEEP of 10. Repeat chest x-ray reveals diffuse bilateral infiltrate stable. Antibiotics have been changed to ce fepime and patient started on IV Voriconazole. Patient is continued on dexamethasone, Lovenox and vitamin supplements. WBC 17.2, hemoglobin 12.3. Sodium 130, BUN 21 creatinine 0.83. Total bilirubin 2, AST 54, ALT 248, alkaline phosphatase 132. Capillary blood glucose running between 80 and 193. 01/25: Patient remains in the intensive care unit on mechanical ventilation with tidal volume 400, FiO2 is been increased to 100 and PEEP of 12. Patient is currently on propofol, and was started on vasopressors yesterday and is status post 2 L of IV fluid. Temperature max 101.3. Pulse 87, respiratory rate 33, blood pressure 120/57, pulse ox 95%. compliance monitor is a sinus rhythm. Repeat blood work reveals WBC 8.3, hemoglobin 11. Sodium 136, chloride 108. Creatinine is 0.83. Calcium 7.9. Total bilirubin 2.7, AST 64, ALT 171, alkaline phosphatase 127. LDH 1187. C-reactive protein 32.6. Blood sugars are running between 133 and 173. Urine culture is showing gram-negative bacilli. Blood culture from 01/24 showing no growth at 24 hours. Repeat chest x-ray reveals clear to megaly with bilateral confluent mid to lower lung opacities consistent with: 19 infection redemonstrated. No significant change. Patient is currently on cefepime, Zyvox and there, so for worsening bilateral pulmonary infiltrate, pneumonia. 01/26: Patient remains in intensive care unit on mechanical ventilation with tidal volume 450, FiO2 80 and PEEP of 12. He has been afebrile for greater than 24 hours. Heart rate 80, blood pressure 132/70, pulse ox 86%. He does have leaking around the tracheostomy site. Repeat blood work reveals WBC 8, hemoglobin 11.1, platelet count 291. Sodium 135, potassium 5.8, creatinine 1.15. Total bilirubin 1.8, AST 101, ALT 194, alkaline phosphatase 135. LDH 1156. C-reactive protein 35.7. Blood sugars are running between 154 and 183. Patient will be started on Levemir 10 units at bedtime. He is continued on cef epime, Zyvox and voriconazole. 01/27: Patient remains intubated and on mechanical ventilation with tidal volume 400 50, FiO2 60, PEEP of 12. Plan is to try and wean oxygen down today. Tracheostomy tube has been manipulated and repositioned. He is not requiring vasopressors, currently on propofol. Chest x-ray reveals no significant interval change. Patient has had good urine output with BUN of 37 creatinine 1.28. Other lab work reveals WBC 9.8, hemoglobin 10.7. D-dimer 5.45. Total bilirubin 1.4, AST 153, ALT 282, alkaline phosphatase 138, LDH 1073. C-reactive protein 16.3. ProCalcitonin 10.1. 01/28: Remains in the intensive care unit, intubated and on mechanical ventilation with tidal volume 450, FiO2 of 60 and PEEP of 10. Patient is responsive, follows a few simple commands. He is currently on antibiotics in the form of cefepime, Zyvox and voriconazole. Patient is also continued on Decadron and Lovenox. Repeat blood work reveals WBC of 10, hemoglobin 10.5. D- dimer 5.63. C-reactive protein 6.2. LDH 1025. Total bilirubin 1.3, AST 95, ALT 250. Patient is on tube feedings at goal. He has had good urine output. Social work will start process for discharge to select specialty with anticipation of him being ready by the end of the week. 01/29 patient is currently in the ICU on with tracheostomy with tidal volume 450 FiO2 decreased to 55 this morning with PEEP of 10. Patient is responsive get agitated once propofol is discontinued. Patient is getting of diarrheal ordered every few hours to help with pain control. Currently stays on antibiotic in the form of cefepime, Zyvox and voriconazole. Urine output is appropriate in her on 75 200 mL per hour. Continues to remain on Decadron and Lovenox. He's currently off norepinephrine off Precedex is off fentanyl. Chest x-ray reviewed has bilateral interstitial infiltrate not changed. Labs reviewed, WBC 11.1 h emoglobin is 11.4 R blood gas this morning on 60% FiO2 suggest EF pO2 of 65 bicarb 26 blood sugar controlled ranging from 156-197. Ventilator management per pulmonary as reduce the FiO2 to 55 . Repeat blood gas in 24 hours. Patient initiating Seroquel 50 twice a day for agitation. Discussion with the nurse was made to reduce the Seroquel to 25 twice a day if patient appears to be sedated 01/30: Patient remains in intensive care unit, intubated status post tracheostomy and PEG tube placement. He is on tidal volume 450, FiO2 of 50 and PEEP is down to 10. He is able to follow some simple commands. Pulmonary medicine is planning to discontinue propofol and switched to Precedex. He is on tube feedings. Social work is following for possible discharge to [facility] by the end of the week. 01/31: Patient remains in the intensive care unit intubated and on mechanical ventilation status post PEG tube and trach. Tidal volume 450, FiO2 50 and PEEP of 10. Patient is on propofol. He is on PEG tube feedings at goal. Patient is continued on Lovenox, Decadron, supplements. Cefepime has been discontinued and he is continued on Zyvox and 4, his old. Social work is following closely for discharge planning however at this time, there are no facilities that will accept the patient. 02/01: Patient is out of Covid isolation. Patient remains on mechanical ventilation with tidal volume 450, FiO2 50, PEEP of 10. Patient is on propofol which is to be weaned off today. He still has Sim catheter with good urine output. Feedings are at goal. Patient has occasional cough, mild edema. Patient is refusing IV Dilaudid for pain. Bowel movements been soft but no diarrhea. Patient is afebrile, heart rate 68, respiratory rate 24, blood pressure 130/75, pulse ox 92%. REVIEW OF SYSTEMS. Unable to obtain due to mechanical ventilation PHYSICAL EXAMINATION Gen: This is a 55-year-old male. He is resting in ICU bed, on mechanical ventilation status post trach and PEG, appears to be comfortable. HEENT: Head is atraumatic, normocephalic. Pupils equal, round. Sclerae is anicteric. Tracheostomy intact. NECK: Supple. No JVD. No lymphadenopathy. LUNGS: Crackles bilaterally. No accessory muscle usage. No intercostal retractions. HEART: Regular rate and rhythm. No murmur. ABDOMEN: Soft. Bowel sounds are present. No masses. No tenderness. PEG tube in place. EXTREMITIES: No pedal edema. No calf tenderness. NEUROLOGICAL: Patient is awake, and able to follow simple commands. ASSESSMENT AND PLAN 1. Acute hypoxic respiratory failure secondary to Covid 19 pneumonia and possi ble secondary pneumonia, gram-negative and fungal. Patient required intubation 01/14. Patient is status post trach and PEG tube placement 01/[address] Olivares. Patient started on Remdesivir was discontinued by pulmonary, on January 12/2021 started on baricinib 4 mg daily, Baricitinib discontinued on 01/24. Continue dexamethasone, Lovenox, Zyvox, voriconazole, continue ventilatory management per flash welder. 2. Acute respiratory distress syndrome secondary to coronavirus pneumonia. 3. Acute septic shock requiring vasopressors. Patient is status post IV fluid bolus and off vasopressors. 4. History of bilateral pulmonary emboli and DVT in 2015. CTA negative for PE. Not on chronic anticoagulation. 5. Acute transaminitis secondary to Covid 19. 6. Generalized osteoarthritis. 7. Degenerative changes in the cervical spine status post fusion of C5-6. 8. 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 9. Elevated liver function tests, transaminitis. 10. Hyperglycemia secondary to steroids. Patient is on NovoLog scale, Levemir 10 units at bedtime added. 11. Severe hyperkalemia status post IV push calcium gluconate, dextrose and regular insulin, IV push sodium bicarb. 12. GI prophylaxis. Protonix. 13. DVT prophylaxis. Lovenox. 14. Acute agitation on ventilator area flash welder has increased Seroquel to 100 mg twice daily by flash welder. DISCHARGE PLAN TBD Impression and plan of care have been directed as dictated by the signing physician. Shakila Mosqueda nurse practitioner acting as scribe for signing physician. Objective - Vital Signs Vital signs: Vital Signs Temp 98.4 F 02/01/21 08:00 Pulse 68 02/01/21 11:00 Resp 24 02/01/21 11:00 BP 122/68 02/01/21 07:00 Pulse Ox 92 L 02/01/21 11:00 Intake & Output 01/31/21 02/01/21 02/01/21 18:59 06:59 18:59 Intake Total 1479.912 955.419 925.229 Output Total 1525 885 600 Balance -45.088 70.419 325.229 Weight 107.5 kg Intake: IV 676 353 615 Linezolid 600 mg In 300 300 Dextrose/Water 1 300ml. bag @ 150 mls/hr IVPB Q12H BRADY Rx#:[id number] Pressure Bags 36 33 15 Sodium Chloride 0.9% 1, 240 220 100 000 ml @ 20 mls/hr IV . Q24H [facility]ADY Rx#:[id number] Voriconazole 200 mg In 100 100 200 Sodium Chloride 0.9% 100 ml @ 125 mls/hr IVPB Q12HR BRADY Rx#:[id number] Intake, IV Titration 320.912 259.419 131.229 Amount propofoL 1,000 mg In 320.912 259.419 131.229 Empty Bag 1 bag @ Titrate IV .Q0M BRADY Rx#: [id number] Tube Feeding 253 253 149 Other 230 90 30 Output: Urine 1525 885 600 Other: Voiding Method Indwelling Catheter Indwelling Catheter Indwelling Catheter ABP, PAP, CO, CI - Last Documented Arterial Blood Pressure 89/75 - Labs CBC & Chem 7: 02/01/21 04:10 02/01/21 04:10 Labs: Abnormal Lab Results - Last 24 Hours (Table) 01/31/21 02/01/21 02/01/21 Range/Units 17:48 00:39 04:10 RBC 3.37 L (4.30-5.90) m/uL Hgb 10.4 L (13.0-17.5) gm/dL Hct 32.0 L (39.0-53.0) % Neutrophils # 7.8 H (1.3-7.7) k/uL Lymphocytes # 0.6 L (1.0-4.8) k/uL ABG pO2 (83-108) mmHg ABG HCO3 (21-25) mmol/L ABG Total CO2 (19-24) mmol/L ABG O2 Saturation (94-97) % BUN (9-20) mg/dL Glucose (74-99) mg/dL POC Glucose (mg/dL) 138 H 123 H (75-99) mg/dL ALT (4-49) U/L Total Protein (6.3-8.2) g/dL Albumin (3.5-5.0) g/dL 02/01/21 02/01/21 02/01/21 Range/Units 04:10 05:56 11:39 RBC (4.30-5.90) m/uL Hgb (13.0-17.5) gm/dL Hct (39.0-53.0) % Neutrophils # (1.3-7.7) k/uL Lymphocytes # (1.0-4.8) k/uL ABG pO2 63 L (83-108) mmHg ABG HCO3 26 H (21-25) mmol/L ABG Total CO2 28 H (19-24) mmol/L ABG O2 Saturation 93.2 L (94-97) % BUN 31 H (9-20) mg/dL Glucose 178 H (74-99) mg/dL POC Glucose (mg/dL) 167 H (75-99) mg/dL ALT 84 H (4-49) U/L Total Protein 5.4 L (6.3-8.2) g/dL Albumin 2.6 L (3.5-5.0) g/dL
[2021-02-01 17:34] LABS: Glucose,Whole Blood 157 mg/dL (75-99)
[2021-02-01] MEDS: INSULIN DETEMIR (LEVEMIR) 100 UNIT/ML SYR SQ SCH (20:27)
[2021-02-02 00:47] LABS: Glucose,Whole Blood 166 mg/dL (75-99)
[2021-02-02] MEDS: INSULIN ASPART (NovoLOG) 100 UNIT/ML VIAL SQ SCH ×4 (00:48→18:04)
[2021-02-02] MEDS: LINEZOLID 600 MG in DEXTROSE/WATER 1 300ML.BAG IVPB SCH ×3 (00:52→23:26)
[2021-02-02 05:15] LABS: Glucose,Whole Blood 202 mg/dL (75-99)
[2021-02-02 05:23] LABS: Basophils % (A) 0 %; Eosinophils # (A) 0.4 k/uL (0-0.7); Eosinophils % (A) 4 %; HCT 35.9 % (39.0-53.0); HGB 11.6 gm/dL (13.0-17.5); Lymphocytes % (A) 10 %; MCH 30.9 pg (25.0-35.0); MCHC 32.4 g/dL (31.0-37.0); MCV 95.2 fL (80.0-100.0); Mean Platelet Volume 7.9; Monocytes # (A) 0.4 k/uL (0-1.0); Monocytes % (A) 4 %; Neutrophils # (A) 7.5 k/uL (1.3-7.7); Neutrophils % (A) 80 %; Platelet Count 277 k/uL (150-450); RBC 3.77 m/uL (4.30-5.90); RDW 14.2 % (11.5-15.5); WBC 9.4 k/uL (3.8-10.6)
[2021-02-02] MEDS: NOREPINEPHRINE 4 MG in SODIUM CHLORIDE 0.9% 250 ML IV SCH ×2 (05:33→12:44)
[2021-02-02 05:41] LABS: African American GFR (CKD) >90 (>60 ml/min/1.73 sqM); Anion Gap 7 mmol/L; Blood Urea Nitrogen 33 mg/dL (9-20); Calcium 8.7 mg/dL (8.4-10.2); Carbon Dioxide 28 mmol/L (22-30); Chloride 105 mmol/L (98-107); Glucose 186 mg/dL (74-99); Non-African American GFR(CKD) 84 (>60 ml/min/1.73 sqM); Potassium 3.6 mmol/L (3.5-5.1); Sodium 140 mmol/L (137-145)
[2021-02-02 05:51] LABS: ABG Base Excess 7.3 mmol/L; ABG HCO3 31 mmol/L (21-25); ABG Oxygen Saturation 95.9 % (94-97); ABG PCO2 42 mmHg (35-45); ABG PH 7.47 (7.35-7.45); ABG PO2 75 mmHg (83-108); ABG TCO2 32 mmol/L (19-24); Allen Test Performed? Yes
--- NOTE | 2021-02-02 07:16 | XR ---
EXAMINATION TYPE: XR chest 1V DATE OF EXAM: 02/02/2021 COMPARISON: Chest x-ray 02/01/2021 HISTORY: Abnormal chest x-ray, pneumonia, intubated TECHNIQUE: Single frontal view of the chest is obtained. FINDINGS: Tracheostomy tube and right-sided PICC line are stable. No evident pneumothorax or pleural effusion. Bilateral airspace disease is present. Cardiac mediastinal silhouette is unchanged. IMPRESSION: Similar to prior exam, correlate for pneumonia, ARDS
[2021-02-02] MEDS: CHLORHEXIDINE GLUCONATE 15 ML CUP MUCOUS MEM SCH ×2 (09:32→21:14)
[2021-02-02] MEDS: CHOLECALCIFEROL 25 MCG (1000 IU) TABLET PO SCH (09:32)
[2021-02-02] MEDS: ASCORBIC ACID 500 MG TAB PO SCH (09:40)
[2021-02-02] MEDS: DEXAMETHASONE SOD PHOSPHATE 10 MG/ML 1 ML VIAL IVP SCH ×2 (09:40→21:15)
[2021-02-02] MEDS: ZINC SULFATE 220 MG CAP PO SCH (09:40)
[2021-02-02] MEDS: LACTULOSE 20 GM/30 ML CUP PO SCH (09:41)
[2021-02-02] MEDS: QUEtiapine 100 MG TAB PO SCH ×2 (09:41→21:15)
[2021-02-02] MEDS: PANTOPRAZOLE 40 MG/10 ML VIAL IVP SCH (09:41)
[2021-02-02] MEDS: ENOXAPARIN 40 MG/0.4 ML SYRINGE SQ SCH (09:41)
--- NOTE | 2021-02-02 10:22 | P.PN ---
Subjective Progress Note Date: 02/02/21 HISTORY OF PRESENT ILLNESS This is a 55-year-old male patient of Dr. 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 Patient states he has not been feeling well since Thursday. He said shortness of breath cough is nonproductive along with fever and chills, exertional dyspnea. He denies having any nausea vomiting or diarrhea. He denies any close contacts to known Covid people. He states his temperature is been up to 102.7 at home. He is not vaccinated. Patient presented to [facility] emergency center and found to be febrile at 101.1, heart rate 90, blood pressure 122/80, pulse ox 85% on room air. CBC revealed platelet count of 128. D-dimer 0.82. Sodium 131 otherwise electrolytes and renal function were normal. Blood sugar 147. Troponin negative. Coronavirus PCR positive. Chest x-ray reveals patchy bilateral airspace disease especially in the mid and lower lungs. Correlate for multifocal pneumonia including Covid 19 pneumonia. CTA of the chest was suboptimal study without central acute pulmonary embolism. Bilateral multifocal and confluent groundglass opacities right greater than left and greater in the lower lungs consistent with known Covid 19 infection. Patient is seen today in the emergency center waiting for bed on the [facility] floor, started on Remdesivir, Lovenox, dexamethasone and vitamin supplements, consult with pulmonary medicine. 01/12: Patient is comfortable, however he requires 40 L of oxygen via airvo sats 88-89%, he feels better today compared to his nonrebreather mask yesterday, patient did not sleep well, patient does not have any cough, however he does have shortness of breath. Patient denies any aspiration, appetite is still marginal, patient has insomnia vitals, blood sugar currently is 243, creatinine of 0.98, d-dimer is 0.84, CRP is elevated, LDH is elevated, venous Doppler, shows chronic DVT, left popliteal, in the posterior tibial veins, without any obstruction of flow. No acute DVT identified CTA, shows suboptimal, without central acute pulmonary emboli, has bilateral multifocal and confluent groundglass opacities, right greater than left, lower lobe, consistent with COVID-19 infection and remdesivir discontinued by pulmonary today and is outside of the window for remdesivir 01/13: Patient is on aerosol 14 L, with nonrebreather mask, 15 L, hypoxemia no cheng on 88%, worse with coughing, however his nonrebreather mask is very loose. Nurse is worriedwith the turn of events, and requested an ICU transfer, Dr. Canales has seen the patient, and is stable for floor management at this time, patient is not significant tachypnea, and is not tiring out. There is no hemoptysis, and mucus is productive, patient's doing incentive spirometry, up 2 L. 01/14: Patient remains in the intensive care unit, he was intubated this morning as he was desaturating with BiPAP. He has been afebrile, heart rate 73, blood pressure 93/47, pulse ox 90%. CBC is unremarkable. D-dimer 12.04. Sodium 135, creatinine 0.82. LDH 2929, C-reactive protein 5.2. Sputum culture is in progress. He has had good urine output. Chest x-ray reveals no evident convocation from catheters. Bilateral airspace disease. 01/15: Patient remains in the intensive care intubated and on mechanical ventilation with tidal volume 450, FiO2 80, PEEP of 15. Patient has been started on norepinephrine and remains on propofol, heparin drip, Nimbex. Repeat blood work revealed unremarkable CBC. Creatinine 0.88. Capillary blood glucose running between 195 and 215. AST 126, ALT 183, alkaline phosphatase 109. Sputum culture is in progress. Repeat chest x-ray reveals correlate for pneumonia versus edema, ARDS. Patient is continued on vitamin supplements, heparin drip, dexamethasone and Baricitinib. patient remains in intensive care intubated on mechanical ventilator at FiO2 60 percent PEEP respiratory rate of 30 tidal volume 450. Continues to maintain saturations between 94-95% on the current settings. Vitals otherwise stable labs reviewed today WBC is 9.5 hemoglobin 12.4 d-dimer is elevated at 4.98. ABG obtained today suggest pH of 7.4 pO2 53 bicarb 26 on 50% FiO2. Creatinine stable at 0.78 glucose is maintained between 145-190. LDH 1564 CRP is elevated at 4. Patient's inflammatory markers trending down. Patient's vent settings increased to 80% for inadequate oxygenation. Chest x-ray reviewed showed bilateral infiltrate consistent with coronavirus associated pneumonia. Patient continues intubated on propofol 70 bike but patient examined Nimbex 1.25 g daily per minute. Patient to receive 1 dose of Lasix today. Continue to remain on baricitinib day 2 PAtient remains intubaated since . patient continues too remain on assist control, TV 450 , peep 15 and fio2 of 60 %. patient was proned for 16 hours yesterday. CXR was reviewed, COVID pneumonia but no significant change was noted, Will repeat inflammatory markers tomorrow. Vent managment per sewing machine maintenance mechanic. Patient contines to remain propofol , nimbex. Continue on lovenox, baricitinib, dexamethasone and vit supplement 01/18 patient continues to remain intubated. Covid pneumonia. Is currently on assist control respiratory rate of 30 tidal volume 450 FiO2 of 55% and PEEP of 15. She is currently on heparin drip, propofol and Nimbex. Patient continues to tolerate prone positioning 16 hours overnight. Continues to receive dexamethasone, vitamin supplement, anticoagulation with heparin, baricitinib. Labs are reviewed patient has a hemoglobin stable at 12.2. This morning pH 7.48 PCO2 44 bicarb 32 creatinine 0.73 AST 100 chest x-ray done this morning suggestive of ARDS and pneumonia 01/19 patient continues to remain intubated currently on assist-control vent with a rate of 30 tidal volume 450 FiO2 50 and PEEP of 15. Continues to remain on propofol and Nimbex. Continue heparin drip for anticoagulation. Remains on Baricitinib , vitamin supplementation and dexamethasone. Labs reviewed hemoglobin stable at 12 PTT 53 blood gas obtained today suggest a pH of 7.45 pCO2 46 pO2 69 bicarb 32 BUN 23 creatinine 0.0.8 glucose 122 AST ED ALT 226. inflammation markers ordered for tomorrow last set was obtained on 01/12 01/20 Intubated. Vitals reviewed patient's afebrile pulse of 68 respiratory rate 30 blood pressure. 94/56 oxygen 91% on 50% FiO2. Patient remains on assist control, tidal volume 450 respiratory rate 30 FiO2 of 50% and PEEP of 15. He is currently on Pneumovax at 3 mics per KG per minute propofol at 50 Micro-K to Coumadin and heparin drip. Patient labs are reviewed hemoglobin is 11.7. Arterial blood gas at 50% FiO2 has a pH of 7.47 pO2 of 77 bicarb of 31 BUN 24 creatinine 0.7 LDH [id number] CRP 8.70. CRP is slightly elevated with improvement in LDH. Continue to monitor patient with the goal with treatment on heparin, as dexamethasone, vitamin supplementation and Baricitinib . Blood sugar are well controlled. 01/21: Patient remains intubated and on mechanical ventilation with tidal volume 400, FiO2 40 and PEEP of 16. Patient is on propofol and fentanyl drips. He is on tube feedings to be increased to 26 ML's per hour and tolerating. She he has had 100 250 ML's of urine output per hour. He has been afebrile, heart rate 70, respiratory rate 30, blood pressure 115/64, pulse ox 93%. Repeat blood work reveals WBC 7.4, hemoglobin 12, platelet count 310. D-dimer 1.23. Sodium 134, BUN 24 and creatinine 0.73. Blood sugars are running between 101 and 164. AST 105, ALT 261, alkaline phosphatase 135. LDH 999. C-reactive protein 13.5. Albumin 2.9. Gallbladder ultrasound reveals nonspecific pattern of liver can be seen with hepatic steatitis or hepatocellular disease including hepatitis. The chest x-ray reveals bilateral patchy airspace disease stable. 01/22: Remains in the intensive care unit intubated and on mechanical ventilation with tidal volume 400, FiO2 40, PEEP of 13. Paralytics for pause this morning and patient had significant drop in his pulse ox. He is currently on propofol, fentanyl and Nimbex. He has been afebrile, heart rate 73, blood pressure 99/63, pulse ox 90%. Repeat blood work reveals hemoglobin 11.6. Creatinine 0.81. Blood sugars are running between 98 and 155. AST 85, ALT 260, alkaline phosphatase 132. LDH 954, C-reactive protein 6.8. Repeat chest x-ray reveals bilateral patchy diffuse airspace disease stable. Patient is continued on Baricitinib, Lovenox 40 mg subcu daily, dexamethasone 6 mg IV push and vitamin supplements 01/23: Remains in the intensive care unit on mechanical ventilation with tidal volume 400, FiO2 40 and PEEP of 10. Patient is scheduled for trach and PEG tube placement today. He is currently on propofol, fentanyl and Nimbex. Patient remains afebrile, heart rate 69, respiratory rate 30, blood pressure 120/76, pulse ox 93%. Repeat blood work reveals creatinine is 0.71. WBC 8.3, hemoglobin 12.9. AST 111, ALT 328, alkaline phosphatase 153. Blood sugars have been running between 92 and 193. Sputum culture is showing Corynebacterium species from 01/21 and Aspergillus from 01/14. Repeat chest x-ray reveals bilateral patchy diffuse airspace disease stable. Patient is continued on Baricitinib, Lovenox 40 mg subcu daily, dexamethasone 6 mg IV push and vitamin supplements 01/24: Patient is status post trach and PEG tube done yesterday by Dr. Olivares. Patient is off Nimbex and he has his eyes open but not following commands. Patient's is planning to come in today to see him. He remains on ventilator with tidal volume 300, FiO2 50 and PEEP of 10. Repeat chest x-ray reveals diffuse bilateral infiltrate stable. Antibiotics have been changed to cefepime and patient started on IV Voriconazole. Patient is continued on dexamethasone, Lovenox and vitamin supplements. WBC 17.2, hemoglobin 12.3. Sodium 130, BUN 21 creatinine 0.83. Total bilirubin 2, AST 54, ALT 248, alkaline phosphatase 132. Capillary blood glucose running between 80 and 193. 01/25: Patient remains in the intensive care unit on mechanical ventilation with tidal volume 400, FiO2 is been increased to 100 and PEEP of 12. Patient is currently on propofol, and was started on vasopressors yesterday and is status post 2 L of IV fluid. Temperature max 101.3. Pulse 87, respiratory rate 33, blood pressure 120/57, pulse ox 95%. bus monitor is a sinus rhythm. Repeat blood work reveals WBC 8.3, hemoglobin 11. Sodium 136, chloride 108. Creatinine is 0.83. Calcium 7.9. Total bilirubin 2.7, AST 64, ALT 171, alkaline phosphatase 127. LDH 1187. C-reactive protein 32.6. Blood sugars are running between 133 and 173. Urine culture is showing gram-negative bacilli. Blood culture from 01/24 showing no growth at 24 hours. Repeat chest x-ray reveals clear to megaly with bilateral confluent mid to lower lung opacities consistent with: 19 infection redemonstrated. No significant change. Patient is currently on cefepime, Zyvox and there, so for worsening bilateral pulmonary infiltrate, pneumonia. 01/26: Patient remains in intensive care unit on mechanical ventilation with tidal volume 450, FiO2 80 and PEEP of 12. He has been afebrile for greater than 24 hours. Heart rate 80, blood pressure 132/70, pulse ox 86%. He does have leaking around the tracheostomy site. Repeat blood work reveals WBC 8, hemoglobin 11.1, platelet count 291. Sodium 135, potassium 5.8, creatinine 1.15. Total bilirubin 1.8, AST 101, ALT 194, alkaline phosphatase 135. LDH 1156. C-reactive protein 35.7. Blood sugars are running between 154 and 183. Patient will be started on Levemir 10 units at bedtime. He is continued on cefe pime, Zyvox and voriconazole. 01/27: Patient remains intubated and on mechanical ventilation with tidal volume 400 50, FiO2 60, PEEP of 12. Plan is to try and wean oxygen down today. Tracheostomy tube has been manipulated and repositioned. He is not requiring vasopressors, currently on propofol. Chest x-ray reveals no significant interval change. Patient has had good urine output with BUN of 37 creatinine 1.28. Other lab work reveals WBC 9.8, hemoglobin 10.7. D-dimer 5.45. Total bilirubin 1.4, AST 153, ALT 282, alkaline phosphatase 138, LDH 1073. C-reactive protein 16.3. ProCalcitonin 10.1. 01/28: Remains in the intensive care unit, intubated and on mechanical ventilation with tidal volume 450, FiO2 of 60 and PEEP of 10. Patient is responsive, follows a few simple commands. He is currently on antibiotics in the form of cefepime, Zyvox and voriconazole. Patient is also continued on Decadron and Lovenox. Repeat blood work reveals WBC of 10, hemoglobin 10.5. D- dimer 5.63. C-reactive protein 6.2. LDH 1025. Total bilirubin 1.3, AST 95, ALT 250. Patient is on tube feedings at goal. He has had good urine output. Social work will start process for discharge to select specialty with anticipation of him being ready by the end of the week. 01/29 patient is currently in the ICU on with tracheostomy with tidal volume 450 FiO2 decreased to 55 this morning with PEEP of 10. Patient is responsive get agitated once propofol is discontinued. Patient is getting of diarrheal ordered every few hours to help with pain control. Currently stays on antibiotic in the form of cefepime, Zyvox and voriconazole. Urine output is appropriate in her on 75 200 mL per hour. Continues to remain on Decadron and Lovenox. He's currently off norepinephrine off Precedex is off fentanyl. Chest x-ray reviewed has bilateral interstitial infiltrate not changed. Labs reviewed, WBC 11.1 he moglobin is 11.4 R blood gas this morning on 60% FiO2 suggest EF pO2 of 65 bicarb 26 blood sugar controlled ranging from 156-197. Ventilator management per pulmonary as reduce the FiO2 to 55 . Repeat blood gas in 24 hours. Patient initiating Seroquel 50 twice a day for agitation. Discussion with the nurse was made to reduce the Seroquel to 25 twice a day if patient appears to be sedated 01/30: Patient remains in intensive care unit, intubated status post tracheostomy and PEG tube placement. He is on tidal volume 450, FiO2 of 50 and PEEP is down to 10. He is able to follow some simple commands. Pulmonary medicine is planning to discontinue propofol and switched to Precedex. He is on tube feedings. Social work is following for possible discharge to [facility] by the end of the week. 01/31: Patient remains in the intensive care unit intubated and on mechanical ventilation status post PEG tube and trach. Tidal volume 450, FiO2 50 and PEEP of 10. Patient is on propofol. He is on PEG tube feedings at goal. Patient is continued on Lovenox, Decadron, supplements. Cefepime has been discontinued and he is continued on Zyvox and 4, his old. Social work is following closely for discharge planning however at this time, there are no facilities that will accept the patient. 02/01: Patient is out of Covid isolation. Patient remains on mechanical ventilation with tidal volume 450, FiO2 50, PEEP of 10. Patient is on propofol which is to be weaned off today. He still has Sim catheter with good urine output. Feedings are at goal. Patient has occasional cough, mild edema. Patient is refusing IV Dilaudid for pain. Bowel movements been soft but no diarrhea. Patient is afebrile, heart rate 68, respiratory rate 24, blood pressure 130/75, pulse ox 92%. 02/02: Patient is seen in ICU he is currently out of Covid isolation. Remains on mechanical ventilation with trach. Tidal volume 450, rate of 22 with a PEEP of 8 FiO2 of 50%. Patient is currently on propofol which will continue to be weaned today with the addition of Ativan. Sim catheter in place with good urine output. Feedings are at goal. Does have occasional cough, mild edema. REVIEW OF SYSTEMS. Unable to obtain due to mechanical ventilation PHYSICAL EXAMINATION Gen: This is a 55-year-old male. He is resting in ICU bed, on mechanical ventilation status post trach and PEG, appears to be comfortable. HEENT: Head is atraumatic, normocephalic. Pupils equal, round. Sclerae is anicteric. Tracheostomy intact. NECK: Supple. No JVD. No lymphadenopathy. LUNGS: Crackles bilaterally. No accessory muscle usage. No intercostal retractions. HEART: Regular rate and rhythm. No murmur. ABDOMEN: Soft. Bowel sounds are present. No masses. No tenderness. PEG tube in place. EXTREMITIES: No pedal edema. No calf tenderness. NEUROLOGICAL: Patient is awake, and able to follow simple commands. ASSESSMENT AND PLAN 1. Acute hypoxic respiratory failure secondary to Covid 19 pneumonia and possible secondary pneumonia, gram-negative and fungal. Patient required intubation 01/14. Patient is status post trach and PEG tube placement 01/[address] Olivares. Patient started on Remdesivir was discontinued by pulmonary, on January 12/2021 started on baricinib 4 mg daily, Baricitinib discontinued on 03/27. Continue dexamethasone, Lovenox, Zyvox, voriconazole, continue ventilatory management per sewing machine maintenance mechanic. 2. Acute respiratory distress syndrome secondary to coronavirus pneumonia. 3. Acute septic shock requiring vasopressors. Patient is status post IV fluid bolus and off vasopressors. 4. History of bilateral pulmonary emboli and DVT in 2015. CTA negative for PE. Not on chronic anticoagulation. 5. Acute transaminitis secondary to Covid 19. 6. Generalized osteoarthritis. 7. Degenerative changes in the cervical spine status post fusion of C5-6. 8. 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 9. Elevated liver function tests, transaminitis. 10. Hyperglycemia secondary to steroids. Patient is on NovoLog scale, Levemir 10 units at bedtime added. 11. Severe hyperkalemia status post IV push calcium gluconate, dextrose and regular insulin, IV push sodium bicarb. 12. GI prophylaxis. Protonix. 13. DVT prophylaxis. Lovenox. 14. Acute agitation on ventilator area sewing machine maintenance mechanic has increased Seroquel to 100 mg twice daily by sewing machine maintenance mechanic. DISCHARGE PLAN TBD Impression and plan of care have been directed as dictated by the signing physician. Elisabeth Smith nurse practitioner acting as scribe for signing physician. Objective - Vital Signs Vital signs: Vital Signs Temp 99.0 F 02/02/21 08:00 Pulse 68 02/02/21 09:00 Resp 22 02/02/21 09:00 BP 114/67 02/02/21 09:00 Pulse Ox 98 02/02/21 09:00 Intake & Output 02/01/21 02/02/21 02/02/21 18:59 06:59 18:59 Intake Total 0813.770 5563.577 201 Output Total 2250 1125 250 Balance -436.000 123.577 -49 Weight 107.5 kg 99 kg Intake: IV 1099 613 69 Linezolid 600 mg In 600 300 Dextrose/Water 1 300ml. bag @ 150 mls/hr IVPB Q12H BRADY Rx#:[id number] Pressure Bags 39 33 9 Sodium Chloride 0.9% 1, 260 180 60 000 ml @ 20 mls/hr IV . Q24H BRADY Rx#:[id number] Voriconazole 200 mg In 200 100 Sodium Chloride 0.9% 100 ml @ 125 mls/hr IVPB Q12HR BRADY Rx#:[id number] Intake, IV Titration 200.000 171.577 Amount propofoL 1,000 mg In 200.000 171.577 Empty Bag 1 bag @ Titrate IV .Q0M BRADY Rx#: [id number] Tube Feeding 455 374 102 Other 60 90 30 Output: Urine 2250 1125 250 Other: Voiding Method Indwelling Catheter Indwelling Catheter ABP, PAP, CO, CI - Last Documented Arterial Blood Pressure 112/64 - Labs CBC & Chem 7: 02/02/21 05:05 02/02/21 05:05 Labs: Abnormal Lab Results - Last 24 Hours (Table) 02/01/21 02/01/21 02/02/21 Range/Units 11:39 17:30 00:45 RBC (4.30-5.90) m/uL Hgb (13.0-17.5) gm/dL Hct (39.0-53.0) % ABG pH (7.35-7.45) ABG pO2 (83-108) mmHg ABG HCO3 (21-25) mmol/L ABG Total CO2 (19-24) mmol/L BUN (9-20) mg/dL Glucose (74-99) mg/dL POC Glucose (mg/dL) 167 H 157 H 166 H (75-99) mg/dL 02/02/21 02/02/21 02/02/21 Range/Units 05:05 05:05 05:11 RBC 3.77 L (4.30-5.90) m/uL Hgb 11.6 L (13.0-17.5) gm/dL Hct 35.9 L (39.0-53.0) % ABG pH (7.35-7.45) ABG pO2 (83-108) mmHg ABG HCO3 (21-25) mmol/L ABG Total CO2 (19-24) mmol/L BUN 33 H (9-20) mg/dL Glucose 186 H (74-99) mg/dL POC Glucose (mg/dL) 202 H (75-99) mg/dL 02/02/21 Range/Units 05:45 RBC (4.30-5.90) m/uL Hgb (13.0-17.5) gm/dL Hct (39.0-53.0) % ABG pH 7.47 H (7.35-7.45) ABG pO2 75 L (83-108) mmHg ABG HCO3 31 H (21-25) mmol/L ABG Total CO2 32 H (19-24) mmol/L BUN (9-20) mg/dL Glucose (74-99) mg/dL POC Glucose (mg/dL) (75-99) mg/dL
[2021-02-02] MEDS: DEXMEDETOMIDINE/0.9% NACL(PMX) 400 MCG in EMPTY BAG 1 BAG IV SCH (10:24)
[2021-02-02] MEDS: VORICONAZOLE 200 MG in SODIUM CHLORIDE 0.9% 100 ML IVPB SCH ×2 (11:19→21:15)
--- NOTE | 2021-02-02 11:39 | P.PN ---
Subjective Progress Note Date: 02/02/21 Principal diagnosis: Acute hypoxic respiratory failure secondary to COVID-19 pneumonia 01/27/2021, the patient's condition has a more stabilized. Since yesterday, the patient was taken off paralytics and the patient is currently on propofol running at 75 mcg/kg per minute. He seems to be quite intense a mechanical ventilator. He is also arousable with stimulation. He does have some occasional cough. No spontaneous eye opening. He is quite synchronous with the mechanical ventilator. I have him on VC plus mode at the rate of 22 with a tidal volume of 450 and PEEP of 12 and FiO2 is currently down to 60%. Chest x- ray shows bilateral pulmonary infiltrates, slightly improved compared to yesterday. He was having significant amount of air leak around his tracheostomy tube and we were able to manage that with some had manipulation and positioning of the tracheostomy tube. The patient has a #[address] tube in [address] On today's evaluation, the leaks are minimal. His peak airway pressures around 33. 70 pressures around 30. The patient had a blood gas today that showed a pH of 7.39 with a pCO2 of 45 and a pO2 of 61 and this was on FiO2 of 60%. The sputum sample is positive for Aspergillus and charity bacterium and the patient remains on a broad-spectrum antibiotics including Zyvox, voriconazole, and IV cefepime. His urine culture also shirt turner to be positive for E. coli. Meanwhile, the patient is hemodynamically stable. I'm a bit concerned about his kidney function. Creatinine today was up to 1.28 and the patient is producing adequate amount of urine output in the order of 50-60 mL an hour. In terms of his inflammatory markers, the patient has a d-dimer of 5.45 and LDH is 1073, improved compared to yesterday and his CRP level is down to 16.3. Meanwhile, he is still being treated with Decadron at a dose of 60 mg IV every 24 hours. He was taken off the Baricitinib several days ago. He remains on Lovenox for DVT prophylaxis at a dose of 40 mg subcu every 24 hours. He remains on Levemir insulin 10 units a day in addition to NovoLog sliding scale coverage. No other significant events overnight. He did have a bout of hyperkalemia and the potassium level was as high as 6.2 and this was managed appropriately and the potassium level is improved. Hemodynamically stable. No pressors. Liver function tests have been abnormal yet stable. The patient has not produced any bowel movement activity at. The patient was started on lactulose. Reevaluated today on 01/28/2021, patient remains in the ICU, intubated and mechanically ventilated. Patient is on volume control plus the rate of 20 to tell volume 450 FiO2 60% PEEP of 10. ABG showed a pO2 of 65 pCO2 39 pH of 7.42 on 50% FiO2. Remains on propofol at 55 mcg/kg/m, not requiring any other sedatives, he is off paralytics. Patient is status post tracheostomy and PEG tube placement on 01/23. Patient is on enteral feeding using vital AF at 1 3 mL per hour. He is also on Decadron at 60 mg IV push twice a day. Patient is arousable, follows very simple instructions. Chest x-ray continues to show bilateral Infiltrates, right more so than left. Tracheostomy seems to be intact. ABC is relatively normal d-dimer is 5.63 electrolytes are normal , BUN is 38 creatinine 1.18 liver enzymes are a bit elevated ALT of 250 AST of 95 LDH is 1025 C-reactive protein 6.2. Patient remains on the COVID-19 cocktail, he is also on voriconazole. Zyvox. Decadron 6 mg IV push twice a day. Cefepime. Reevaluated today on 01/29/2021, remains intubated and mechanically ventilated. Patient is on volume control plus of 450, rate 22 FiO2 60% PEEP of 10 ABG showed a pO2 of 65 pCO2 of 37 pH of 7.45. Hence no changes were made in the ventilator settings. LDH remains elevated at 135 to propofol is at 55, patient is off norepinephrine, off Precedex, he is off fentanyl, and he is doing relatively well considering his overall picture, patient had intermittent episodes of a gitation and restlessness, and I have recommended we start the patient on Seroquel 50 mg twice a day. And hopefully can titrate the upper fall down and possibly discontinue. Chest x-ray continues to show bilateral interstitial infiltrates, not much of the changes noted on the chest x-ray. WBC count today is 11.1 hemoglobin 11.4. Basic metabolic profile is normal BUN is 39 creatinine is 1.05. LDH is noted to be a bit elevated today compared to yesterday 1352. Reevaluated today on 01/30/2021, remains in the ICU, intubated, patient is status post tracheostomy and PEG tube placement, he is on assist control rate of 22 volume control +450 FiO2 50% PEEP is at 10. Patient remains on propofol, he is at 50 mcg/kg/m, arousable, follows very simple instructions, hence I plan to discontinue propofol altogether and switch the patient to Precedex. Patient remains on enteral feedings, tolerating enteral feedings well, patient is not requiring any pressors, he is hemodynamically stable. Chest x-ray continues to show bilateral infiltrates. CBC today showed the reset of 9.2 hemoglobin 10.6. ABG today showed a pO2 of 65 pCO2 of 43 pH of 7.41 this is on a 55% FiO2. Basic metabolic profile is normal renal profile is improved with BUN 34 creatinine 1.16. Reevaluated today on 01/31/2021, patient remains in the ICU, intubated and mechanically ventilated. He is on assist control rate of 22, volume control +450 FiO2 50% PEEP is at 10. ABG showed a pO2 of 58 pCO2 of 38 pH of 7.46. Patient is still requiring propofol, he could not tolerate switching propofol to Precedex as he became extremely agitated and restless tachypneic and tachycardic, hence he was placed back on propofol at 60 mcg/kg/m. Chest x-ray continues to show bilateral infiltrates. Improved compared to his initial baseline chest x-ray. CBC is relatively unremarkable electrolytes are unremarkable. Renal profile is normal. Patient remains on enteral feeding via PEG tube. Remains on the COVID-19 cocktail, remains on Decadron. Remains on Lovenox 40 mg subcu daily. He is on Dilaudid when necessary. Remains on Protonix, Seroquel was added a few days ago, and I will likely increase the dose. Patient is still on Zyvox and he is on voriconazole. Patient is off cefepime. Reevaluated today on 02/01/2021, patient remains in the ICU, intubated and mechanically ventilated, continues to have tracheostomy in place, and seems to be intact. Patient is awake, maintain on propofol at 40 mcg/kg/m, however I have instructed the nursing staff today to cut down the propofol and hopefully discontinued if possible as long as the patient remains calm and not agitated. We have tried in the past titrating propofol and with dried Precedex on this patient, and nothing seems to help, however I went ahead and increased his dose of Seroquel. Hoping we could get the patient off propofol. Patient is on volum e control +450 rate of 22 of 10 FiO2 50%. ABG is marginal with a pO2 of 63 pCO2 of 40 pH of 7.43. WBC count 9.2 hemoglobin 10.4 electrodes are normal renal profile is normal. Chest x-ray continues to show bilateral infiltrates, not much of a change noted. Medications lund, patient remains on Decadron 6 mg IV push twice a day, he is on Lovenox 40 mg subcu daily, lactulose, Zyvox, voriconazole, Seroquel 100 twice a day, Protonix 40 mg IV push daily, he is not requiring any pressors, and he is off cefepime. Reevaluated today on 02/02/2021, patient is basically about the same. Remains intubated and mechanically ventilated. Remains on propofol at 30 mcg/kg/m, not requiring any other sedation medication, patient had poor tolerance to Precedex. Today I recommended a trial of Ativan 1 mg IV push every 4 hours when necessary, hoping we can taper down and possibly discontinue propofol al together. Patient is hemodynamically stable, not requiring any pressors. Remains on assist control rate of 22 volume control plus of 450 FiO2 50% remains on antibiotics and antifungal. Remains on Protonix for GI prophylaxis. And he is off cefepime. ABG today showed a pO2 of 75 pCO2 of 42 pH of 7.47. WBC count is 9.4 hemoglobin 11.6. Electrolytes and renal profile are normal. Patient remains on the COVID-19 cocktail. Lovenox 40 mg subcu daily. He remains on Zyvox. Remains on ascorbic acid. And on zinc. Patient is also on vitamin D P Objective - Vital Signs Vital signs: Vital Signs Temp 99.0 F 02/02/21 08:00 Pulse 59 L 02/02/21 11:00 Resp 22 02/02/21 11:00 BP 116/76 02/02/21 11:00 Pulse Ox 88 L 02/02/21 11:00 Intake & Output 02/01/21 02/02/21 02/02/21 18:59 06:59 18:59 Intake Total 7491.544 4189.577 295 Output Total 2250 1125 500 Balance -436.000 123.577 -205 Weight 107.5 kg 99 kg Intake: IV 1099 613 95 Linezolid 600 mg In 600 300 Dextrose/Water 1 300ml. bag @ 150 mls/hr IVPB Q12H BRAD[facility] Rx#:[id number] Pressure Bags 39 33 15 Sodium Chloride 0.9% 1, 260 180 80 000 ml @ 20 mls/hr IV . Q24H [facility] Rx#:[id number] Voriconazole 200 mg In 200 100 Sodium Chloride 0.9% 100 ml @ 125 mls/hr IVPB Q12HR [facility]AD[facility] Rx#:[id number] Intake, IV Titration 200.000 171.577 Amount propofoL 1,000 mg In 200.000 171.577 Empty Bag 1 bag @ Titrate IV .Q0M BRADY Rx#: [id number] Tube Feeding 455 374 170 Other 60 90 30 Output: Urine 2250 1125 500 Other: Voiding Method Indwelling Catheter Indwelling Catheter Indwelling Catheter ABP, PAP, CO, CI - Last Documented Arterial Blood Pressure 112/64 - Exam Physical Exam: Revealed a 55-year-old white male in no distress. Head: Atraumatic, normocephalic. HEENT:[Neck is supple.] [No neck masses.] [No thyromegaly.] [No JVD.] Intact tracheostomy is noted. Chest: Symmetrical chest expansion crackles at the bases bilaterally. Cardiac Exam: [Normal S1 and S2, no S3 gallop, no murmur.] Abdomen: [Soft, nontender, no megaly, no rebound, no guarding, normal bowel sounds.] PEG tube is intact. Extremities: 1+ bipedal edema, no clubbing, no cyanosis. Neurological Exam: Awake, follows simple instructions , seems to be in better spirits today. And more awake compared to yesterday. Psychiatric: Normal mood, affect and normal mental status examination. Seems to be appropriate Skin: No rashes. - Labs CBC & Chem 7: 02/02/21 05:05 02/02/21 05:05 Labs: Abnormal Lab Results - Last 24 Hours (Table) 02/01/21 02/01/21 02/02/21 Range/Units 11:39 17:30 00:45 RBC (4.30-5.90) m/uL Hgb (13.0-17.5) gm/dL Hct (39.0-53.0) % ABG pH (7.35-7.45) ABG pO2 (83-108) mmHg ABG HCO3 (21-25) mmol/L ABG Total CO2 (19-24) mmol/L BUN (9-20) mg/dL Glucose (74-99) mg/dL POC Glucose (mg/dL) 167 H 157 H 166 H (75-99) mg/dL 02/02/21 02/02/21 02/02/21 Range/Units 05:05 05:05 05:11 RBC 3.77 L (4.30-5.90) m/uL Hgb 11.6 L (13.0-17.5) gm/dL Hct 35.9 L (39.0-53.0) % ABG pH (7.35-7.45) ABG pO2 (83-108) mmHg ABG HCO3 (21-25) mmol/L ABG Total CO2 (19-24) mmol/L BUN 33 H (9-20) mg/dL Glucose 186 H (74-99) mg/dL POC Glucose (mg/dL) 202 H (75-99) mg/dL 02/02/21 Range/Units 05:45 RBC (4.30-5.90) m/uL Hgb (13.0-17.5) gm/dL Hct (39.0-53.0) % ABG pH 7.47 H (7.35-7.45) ABG pO2 75 L (83-108) mmHg ABG HCO3 31 H (21-25) mmol/L ABG Total CO2 32 H (19-24) mmol/L BUN (9-20) mg/dL Glucose (74-99) mg/dL POC Glucose (mg/dL) (75-99) mg/dL Assessment and Plan Assessment: Impression: Acute hypoxic respiratory failure secondary to COVID-19 pneumonia, intubated on 01/14, treated initially with Decadron and baricitinib, underwent tracheostomy on 01/23 and PEG tube placement. Developed superinfection requiring antibiotics and antifungal treatment. Sputum cultures have grown Aspergillus and corynebacterium. Patient is now on Zyvox, and voriconazole. And he is off baricitinib, ARDS associated with COVID-19 pneumonia Degenerative joint disease Aspergillus fumigatus and sputum, hence voriconazole was added. Elevated liver enzymes secondary to COVID-19 infection Acute kidney injury secondary to COVID-19 infection/pneumonia. Resolved. Suspect critical illness polyneuropathy Patient will need a long course of rehabilitation. Recommendation: Continue ventilatory support, still trying to wean off propofol, and possibly eventually give the patient a trial of pressure support mode of mechanical ventilation and CPAP. And hoping we could even eventually decannulate this patient down the line. Continue tracheostomy care. Use Ativan and taper propofol accordingly. Hopefully discontinue propofol. Continue antibiotics and antifungals for now. Continue enteral feeding and nutritional support. Continue Lovenox. Continue Decadron. Continue COVID-19 cocktail. patient remains critically ill. Critical care time is over 30 minutes. Time with Patient: Greater than 30
[2021-02-02 11:42] LABS: Glucose,Whole Blood 144 mg/dL (75-99)
[2021-02-02] MEDS: LORazepam 2 MG/ML INJ IV PRN (11:52)
--- NOTE | 2021-02-02 11:59 | P.PN ---
Subjective Progress Note Date: 02/02/21 Principal diagnosis: Respiratory failure Patient doing well today. His family is present at the bedside. He is awake. He is able to communicate. Denies pain. Tolerating tube feeds at goal. Objective - Vital Signs Vital signs: Vital Signs Temp 99.0 F 02/02/21 08:00 Pulse 59 L 02/02/21 11:00 Resp 22 02/02/21 11:00 BP 116/76 02/02/21 11:00 Pulse Ox 88 L 02/02/21 11:00 Intake & Output 02/01/21 02/02/21 02/02/21 18:59 06:59 18:59 Intake Total 3374.205 4452.577 295 Output Total 2250 1125 500 Balance -436.000 123.577 -205 Weight 107.5 kg 99 kg Intake: IV 1099 613 95 Linezolid 600 mg In 600 300 Dextrose/Water 1 300ml. bag @ 150 mls/hr IVPB Q12H [facility] Rx#:[id number] Pressure Bags 39 33 15 Sodium Chloride 0.9% 1, 260 180 80 000 ml @ 20 mls/hr IV . Q24H [facility] Rx#:[id number] Voriconazole 200 mg In 200 100 Sodium Chloride 0.9% 100 ml @ 125 mls/hr IVPB Q12HR [facility] Rx#:[id number] Intake, IV Titration 200.000 171.577 Amount propofoL 1,000 mg In 200.000 171.577 Empty Bag 1 bag @ Titrate IV .Q0M [facility]ADY Rx#: [id number] Tube Feeding 455 374 170 Other 60 90 30 Output: Urine 2250 1125 500 Other: Voiding Method Indwelling Catheter Indwelling Catheter Indwelling Catheter ABP, PAP, CO, CI - Last Documented Arterial Blood Pressure 112/64 - Exam Tracheostomy site without drainage at this time, no erythema Abdomen: Soft, nontender, nondistended, PEG tube in place - Labs CBC & Chem 7: 02/02/21 05:05 02/02/21 05:05 Labs: Abnormal Lab Results - Last 24 Hours (Table) 02/01/21 02/02/21 02/02/21 Range/Units 17:30 00:45 05:05 RBC 3.77 L (4.30-5.90) m/uL Hgb 11.6 L (13.0-17.5) gm/dL Hct 35.9 L (39.0-53.0) % ABG pH (7.35-7.45) ABG pO2 (83-108) mmHg ABG HCO3 (21-25) mmol/L ABG Total CO2 (19-24) mmol/L BUN (9-20) mg/dL Glucose (74-99) mg/dL POC Glucose (mg/dL) 157 H 166 H (75-99) mg/dL 02/02/21 02/02/21 02/02/21 Range/Units 05:05 05:11 05:45 RBC (4.30-5.90) m/uL Hgb (13.0-17.5) gm/dL Hct (39.0-53.0) % ABG pH 7.47 H (7.35-7.45) ABG pO2 75 L (83-108) mmHg ABG HCO3 31 H (21-25) mmol/L ABG Total CO2 32 H (19-24) mmol/L BUN 33 H (9-20) mg/dL Glucose 186 H (74-99) mg/dL POC Glucose (mg/dL) 202 H (75-99) mg/dL 02/02/21 Range/Units 11:40 RBC (4.30-5.90) m/uL Hgb (13.0-17.5) gm/dL Hct (39.0-53.0) % ABG pH (7.35-7.45) ABG pO2 (83-108) mmHg ABG HCO3 (21-25) mmol/L ABG Total CO2 (19-24) mmol/L BUN (9-20) mg/dL Glucose (74-99) mg/dL POC Glucose (mg/dL) 144 H (75-99) mg/dL Assessment and Plan (1) COVID Narrative/Plan: Patient doing much better at this time. Continue weaning trials and supportive care. Continue tube feeds at goal. Current Visit: Yes Status: Acute Code(s): U07.1 - COVID-19 SNOMED Code(s): 776110328
[2021-02-02] MEDS ORDERED: POTASSIUM BICARBONATE/CIT AC 20 MEQ TABLET.EFF NG-TUBE SCH (12:00)
[2021-02-02 17:57] LABS: Glucose,Whole Blood 145 mg/dL (75-99)
[2021-02-02] MEDS: SODIUM CHLORIDE 0.9% 1,000 ML IV SCH (18:05)
[2021-02-02] MEDS: INSULIN DETEMIR (LEVEMIR) 100 UNIT/ML SYR SQ SCH (21:15)
[2021-02-03 00:12] LABS: Glucose,Whole Blood 173 mg/dL (75-99)
[2021-02-03] MEDS: INSULIN ASPART (NovoLOG) 100 UNIT/ML VIAL SQ SCH ×5 (00:27→23:42)
[2021-02-03] MEDS: LORazepam 2 MG/ML INJ IV PRN ×2 (00:39→13:37)
[2021-02-03 05:45] LABS: Glucose,Whole Blood 219 mg/dL (75-99)
[2021-02-03 05:45] LABS: ABG Base Excess 7.2 mmol/L; ABG HCO3 31 mmol/L (21-25); ABG Oxygen Saturation 94.3 % (94-97); ABG PCO2 43 mmHg (35-45); ABG PH 7.47 (7.35-7.45); ABG PO2 67 mmHg (83-108); ABG TCO2 32 mmol/L (19-24); Allen Test Performed? Yes
[2021-02-03 05:56] LABS: HCT 32.7 % (39.0-53.0); HGB 10.9 gm/dL (13.0-17.5); MCH 31.3 pg (25.0-35.0); MCHC 33.2 g/dL (31.0-37.0); MCV 94.2 fL (80.0-100.0); Mean Platelet Volume 8.4; Platelet Count 235 k/uL (150-450); RBC 3.48 m/uL (4.30-5.90); RDW 13.5 % (11.5-15.5); WBC 9.2 k/uL (3.8-10.6)
[2021-02-03] MEDS: NOREPINEPHRINE 4 MG in SODIUM CHLORIDE 0.9% 250 ML IV SCH ×2 (06:05→15:06)
[2021-02-03] MEDS: DEXMEDETOMIDINE/0.9% NACL(PMX) 400 MCG in EMPTY BAG 1 BAG IV SCH (06:06)
[2021-02-03 06:22] LABS: African American GFR (CKD) >90 (>60 ml/min/1.73 sqM); Anion Gap 1 mmol/L; Blood Urea Nitrogen 38 mg/dL (9-20); Calcium 8.6 mg/dL (8.4-10.2); Carbon Dioxide 31 mmol/L (22-30); Chloride 104 mmol/L (98-107); Glucose 227 mg/dL (74-99); Non-African American GFR(CKD) 89 (>60 ml/min/1.73 sqM); Potassium 4.1 mmol/L (3.5-5.1); Sodium 136 mmol/L (137-145)
--- NOTE | 2021-02-03 06:33 | XR ---
EXAMINATION TYPE: XR chest 1V portable DATE OF EXAM: 02/03/2021 5:22 AM COMPARISON:Chest radiograph from one day prior. CLINICAL INDICATION:Male, 55 years old with history of covid, pna, trach; TECHNIQUE: Portable AP radiograph of the chest.. FINDINGS: Lungs/Pleura: Similar multifocal airspace opacities. No evidence of pneumothorax or pleural effusion. Pulmonary vascularity: Unremarkable. Heart/mediastinum: Cardiomediastinal silhouette is partially obscured due to overlying and adjacent o pacities. Musculoskeletal: No acute osseous pathology. Lines/Tubes: Tracheostomy cannula tip projecting over the trachea. Right-sided PICC line with distal tip at the cavoatrial junction. Partially visualized PEG tube. IMPRESSION: 1. Similar multifocal pneumonia. 2. Stable support lines and tubes.
[2021-02-03] MEDS: CHOLECALCIFEROL 25 MCG (1000 IU) TABLET PO SCH (07:48)
[2021-02-03] MEDS: CHLORHEXIDINE GLUCONATE 15 ML CUP MUCOUS MEM SCH ×2 (07:48→20:43)
[2021-02-03] MEDS: LACTULOSE 20 GM/30 ML CUP PO SCH (07:48)
[2021-02-03] MEDS: ENOXAPARIN 40 MG/0.4 ML SYRINGE SQ SCH (07:49)
[2021-02-03] MEDS: ZINC SULFATE 220 MG CAP PO SCH (07:49)
[2021-02-03] MEDS: ASCORBIC ACID 500 MG TAB PO SCH (07:49)
[2021-02-03] MEDS: DEXAMETHASONE SOD PHOSPHATE 10 MG/ML 1 ML VIAL IVP SCH ×2 (07:49→20:42)
[2021-02-03] MEDS: QUEtiapine 100 MG TAB PO SCH ×2 (07:49→20:43)
[2021-02-03] MEDS: PANTOPRAZOLE 40 MG/10 ML VIAL IVP SCH (07:55)
[2021-02-03] MEDS: VORICONAZOLE 200 MG in SODIUM CHLORIDE 0.9% 100 ML IVPB SCH ×2 (07:55→20:42)
--- NOTE | 2021-02-03 09:49 | P.PN ---
Subjective Progress Note Date: 02/03/21 HISTORY OF PRESENT ILLNESS This is a 55-year-old male patient of Dr. 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 Patient states he has not been feeling well since Thursday. He said shortness of breath cough is nonproductive along with fever and chills, exertional dyspnea. He denies having any nausea vomiting or diarrhea. He denies any close contacts to known Covid people. He states his temperature is been up to 102.7 at home. He is not vaccinated. Patient presented to [facility] emergency center and found to be febrile at 101.1, heart rate 90, blood pressure 122/80, pulse ox 85% on room air. CBC revealed platelet count of 128. D-dimer 0.82. Sodium 131 otherwise electrolytes and renal function were normal. Blood sugar 147. Troponin negative. Coronavirus PCR positive. Chest x-ray reveals patchy bilateral airspace disease especially in the mid and lower lungs. Correlate for multifocal pneumonia including Covid 19 pneumonia. CTA of the chest was suboptimal study without central acute pulmonary embolism. Bilateral multifocal and confluent groundglass opacities right greater than left and greater in the lower lungs consistent with known Covid 19 infection. Patient is seen today in the emergency center waiting for bed on the [facility] floor, started on Remdesivir, Lovenox, dexamethasone and vitamin supplements, consult with pulmonary medicine. 01/12: Patient is comfortable, however he requires 40 L of oxygen via airvo sats 88-89%, he feels better today compared to his nonrebreather mask yesterday, patient did not sleep well, patient does not have any cough, however he does have shortness of breath. Patient denies any aspiration, appetite is still marginal, patient has insomnia vitals, blood sugar currently is 243, creatinine of 0.98, d-dimer is 0.84, CRP is elevated, LDH is elevated, venous Doppler, shows chronic DVT, left popliteal, in the posterior tibial veins, without any obstruction of flow. No acute DVT identified CTA, shows suboptimal, without central acute pulmonary emboli, has bilateral multifocal and confluent groundglass opacities, right greater than left, lower lobe, consistent with COVID-19 infection and remdesivir discontinued by pulmonary today and is outside of the window for remdesivir 01/13: Patient is on aerosol 14 L, with nonrebreather mask, 15 L, hypoxemia no cheng on 88%, worse with coughing, however his nonrebreather mask is very loose. Nurse is worriedwith the turn of events, and requested an ICU transfer, Dr. Canales has seen the patient, and is stable for floor management at this time, patient is not significant tachypnea, and is not tiring out. There is no hemoptysis, and mucus is productive, patient's doing incentive spirometry, up 2 L. 01/14: Patient remains in the intensive care unit, he was intubated this morning as he was desaturating with BiPAP. He has been afebrile, heart rate 73, blood pressure 93/47, pulse ox 90%. CBC is unremarkable. D-dimer 12.04. Sodium 135, creatinine 0.82. LDH 2929, C-reactive protein 5.2. Sputum culture is in progress. He has had good urine output. Chest x-ray reveals no evident convocation from catheters. Bilateral airspace disease. 01/15: Patient remains in the intensive care intubated and on mechanical ventilation with tidal volume 450, FiO2 80, PEEP of 15. Patient has been started on norepinephrine and remains on propofol, heparin drip, Nimbex. Repeat blood work revealed unremarkable CBC. Creatinine 0.88. Capillary blood glucose running between 195 and 215. AST 126, ALT 183, alkaline phosphatase 109. Sputum culture is in progress. Repeat chest x-ray reveals correlate for pneumonia versus edema, ARDS. Patient is continued on vitamin supplements, heparin drip, dexamethasone and Baricitinib. patient remains in intensive care intubated on mechanical ventilator at FiO2 60 percent PEEP respiratory rate of 30 tidal volume 450. Continues to maintain saturations between 94-95% on the current settings. Vitals otherwise stable labs reviewed today WBC is 9.5 hemoglobin 12.4 d-dimer is elevated at 4.98. ABG obtained today suggest pH of 7.4 pO2 53 bicarb 26 on 50% FiO2. Creatinine stable at 0.78 glucose is maintained between 145-190. LDH 1564 CRP is elevated at 4. Patient's inflammatory markers trending down. Patient's vent settings increased to 80% for inadequate oxygenation. Chest x-ray reviewed showed bilateral infiltrate consistent with coronavirus associated pneumonia. Patient continues intubated on propofol 70 bike but patient examined Nimbex 1.25 g daily per minute. Patient to receive 1 dose of Lasix today. Continue to remain on baricitinib day 2 PAtient remains intubaated since . patient continues too remain on assist control, TV 450 , peep 15 and fio2 of 60 %. patient was proned for 16 hours yesterday. CXR was reviewed, COVID pneumonia but no significant change was noted, Will repeat inflammatory markers tomorrow. Vent managment per belt weaver. Patient contines to remain propofol , nimbex. Continue on lovenox, baricitinib, dexamethasone and vit supplement 01/18 patient continues to remain intubated. Covid pneumonia. Is currently on assist control respiratory rate of 30 tidal volume 450 FiO2 of 55% and PEEP of 15. She is currently on heparin drip, propofol and Nimbex. Patient continues to tolerate prone positioning 16 hours overnight. Continues to receive dexamethasone, vitamin supplement, anticoagulation with heparin, baricitinib. Labs are reviewed patient has a hemoglobin stable at 12.2. This morning pH 7.48 PCO2 44 bicarb 32 creatinine 0.73 AST 100 chest x-ray done this morning suggestive of ARDS and pneumonia 01/19 patient continues to remain intubated currently on assist-control vent with a rate of 30 tidal volume 450 FiO2 50 and PEEP of 15. Continues to remain on propofol and Nimbex. Continue heparin drip for anticoagulation. Remains on Baricitinib , vitamin supplementation and dexamethasone. Labs reviewed hemoglobin stable at 12 PTT 53 blood gas obtained today suggest a pH of 7.45 pCO2 46 pO2 69 bicarb 32 BUN 23 creatinine 0.0.8 glucose 122 AST ED ALT 226. inflammation markers ordered for tomorrow last set was obtained on 01/12 01/20 Intubated. Vitals reviewed patient's afebrile pulse of 68 respiratory rate 30 blood pressure. 94/56 oxygen 91% on 50% FiO2. Patient remains on assist control, tidal volume 450 respiratory rate 30 FiO2 of 50% and PEEP of 15. He is currently on Pneumovax at 3 mics per KG per minute propofol at 50 Micro-K to Coumadin and heparin drip. Patient labs are reviewed hemoglobin is 11.7. Arterial blood gas at 50% FiO2 has a pH of 7.47 pO2 of 77 bicarb of 31 BUN 24 creatinine 0.7 LDH [id number] CRP 8.70. CRP is slightly elevated with improvement in LDH. Continue to monitor patient with the goal with treatment on heparin, as dexamethasone, vitamin supplementation and Baricitinib . Blood sugar are well controlled. 01/21: Patient remains intubated and on mechanical ventilation with tidal volume 400, FiO2 40 and PEEP of 16. Patient is on propofol and fentanyl drips. He is on tube feedings to be increased to 26 ML's per hour and tolerating. She he has had 100 250 ML's of urine output per hour. He has been afebrile, heart rate 70, respiratory rate 30, blood pressure 115/64, pulse ox 93%. Repeat blood work reveals WBC 7.4, hemoglobin 12, platelet count 310. D-dimer 1.23. Sodium 134, BUN 24 and creatinine 0.73. Blood sugars are running between 101 and 164. AST 105, ALT 261, alkaline phosphatase 135. LDH 999. C-reactive protein 13.5. Albumin 2.9. Gallbladder ultrasound reveals nonspecific pattern of liver can be seen with hepatic steatitis or hepatocellular disease including hepatitis. The chest x-ray reveals bilateral patchy airspace disease stable. 01/22: Remains in the intensive care unit intubated and on mechanical ventilation with tidal volume 400, FiO2 40, PEEP of 13. Paralytics for pause this morning and patient had significant drop in his pulse ox. He is currently on propofol, fentanyl and Nimbex. He has been afebrile, heart rate 73, blood pressure 99/63, pulse ox 90%. Repeat blood work reveals hemoglobin 11.6. Creatinine 0.81. Blood sugars are running between 98 and 155. AST 85, ALT 260, alkaline phosphatase 132. LDH 954, C-reactive protein 6.8. Repeat chest x-ray reveals bilateral patchy diffuse airspace disease stable. Patient is continued on Baricitinib, Lovenox 40 mg subcu daily, dexamethasone 6 mg IV push and vitamin supplements 01/23: Remains in the intensive care unit on mechanical ventilation with tidal volume 400, FiO2 40 and PEEP of 10. Patient is scheduled for trach and PEG tube placement today. He is currently on propofol, fentanyl and Nimbex. Patient remains afebrile, heart rate 69, respiratory rate 30, blood pressure 120/76, pulse ox 93%. Repeat blood work reveals creatinine is 0.71. WBC 8.3, hemoglobin 12.9. AST 111, ALT 328, alkaline phosphatase 153. Blood sugars have been running between 92 and 193. Sputum culture is showing Corynebacterium species from 01/21 and Aspergillus from 01/14. Repeat chest x-ray reveals bilateral patchy diffuse airspace disease stable. Patient is continued on Baricitinib, Lovenox 40 mg subcu daily, dexamethasone 6 mg IV push and vitamin supplements 01/24: Patient is status post trach and PEG tube done yesterday by Dr. Olivares. Patient is off Nimbex and he has his eyes open but not following commands. Patient's is planning to come in today to see him. He remains on ventilator with tidal volume 300, FiO2 50 and PEEP of 10. Repeat chest x-ray reveals diffuse bilateral infiltrate stable. Antibiotics have been changed to cefepime and patient started on IV Voriconazole. Patient is continued on dexamethasone, Lovenox and vitamin supplements. WBC 17.2, hemoglobin 12.3. Sodium 130, BUN 21 creatinine 0.83. Total bilirubin 2, AST 54, ALT 248, alkaline phosphatase 132. Capillary blood glucose running between 80 and 193. 01/25: Patient remains in the intensive care unit on mechanical ventilation with tidal volume 400, FiO2 is been increased to 100 and PEEP of 12. Patient is currently on propofol, and was started on vasopressors yesterday and is status post 2 L of IV fluid. Temperature max 101.3. Pulse 87, respiratory rate 33, blood pressure 120/57, pulse ox 95%. service station manager is a sinus rhythm. Repeat blood work reveals WBC 8.3, hemoglobin 11. Sodium 136, chloride 108. Creatinine is 0.83. Calcium 7.9. Total bilirubin 2.7, AST 64, ALT 171, alkaline phosphatase 127. LDH 1187. C-reactive protein 32.6. Blood sugars are running between 133 and 173. Urine culture is showing gram-negative bacilli. Blood culture from 01/24 showing no growth at 24 hours. Repeat chest x-ray reveals clear to megaly with bilateral confluent mid to lower lung opacities consistent with: 19 infection redemonstrated. No significant change. Patient is currently on cefepime, Zyvox and there, so for worsening bilateral pulmonary infiltrate, pneumonia. 01/26: Patient remains in intensive care unit on mechanical ventilation with tidal volume 450, FiO2 80 and PEEP of 12. He has been afebrile for greater than 24 hours. Heart rate 80, blood pressure 132/70, pulse ox 86%. He does have leaking around the tracheostomy site. Repeat blood work reveals WBC 8, hemoglobin 11.1, platelet count 291. Sodium 135, potassium 5.8, creatinine 1.15. Total bilirubin 1.8, AST 101, ALT 194, alkaline phosphatase 135. LDH 1156. C-reactive protein 35.7. Blood sugars are running between 154 and 183. Patient will be started on Levemir 10 units at bedtime. He is continued on cefe pime, Zyvox and voriconazole. 01/27: Patient remains intubated and on mechanical ventilation with tidal volume 400 50, FiO2 60, PEEP of 12. Plan is to try and wean oxygen down today. Tracheostomy tube has been manipulated and repositioned. He is not requiring vasopressors, currently on propofol. Chest x-ray reveals no significant interval change. Patient has had good urine output with BUN of 37 creatinine 1.28. Other lab work reveals WBC 9.8, hemoglobin 10.7. D-dimer 5.45. Total bilirubin 1.4, AST 153, ALT 282, alkaline phosphatase 138, LDH 1073. C-reactive protein 16.3. ProCalcitonin 10.1. 01/28: Remains in the intensive care unit, intubated and on mechanical ventilation with tidal volume 450, FiO2 of 60 and PEEP of 10. Patient is responsive, follows a few simple commands. He is currently on antibiotics in the form of cefepime, Zyvox and voriconazole. Patient is also continued on Decadron and Lovenox. Repeat blood work reveals WBC of 10, hemoglobin 10.5. D- dimer 5.63. C-reactive protein 6.2. LDH 1025. Total bilirubin 1.3, AST 95, ALT 250. Patient is on tube feedings at goal. He has had good urine output. Social work will start process for discharge to select specialty with anticipation of him being ready by the end of the week. 01/29 patient is currently in the ICU on with tracheostomy with tidal volume 450 FiO2 decreased to 55 this morning with PEEP of 10. Patient is responsive get agitated once propofol is discontinued. Patient is getting of diarrheal ordered every few hours to help with pain control. Currently stays on antibiotic in the form of cefepime, Zyvox and voriconazole. Urine output is appropriate in her on 75 200 mL per hour. Continues to remain on Decadron and Lovenox. He's currently off norepinephrine off Precedex is off fentanyl. Chest x-ray reviewed has bilateral interstitial infiltrate not changed. Labs reviewed, WBC 11.1 he moglobin is 11.4 R blood gas this morning on 60% FiO2 suggest EF pO2 of 65 bicarb 26 blood sugar controlled ranging from 156-197. Ventilator management per pulmonary as reduce the FiO2 to 55 . Repeat blood gas in 24 hours. Patient initiating Seroquel 50 twice a day for agitation. Discussion with the nurse was made to reduce the Seroquel to 25 twice a day if patient appears to be sedated 01/30: Patient remains in intensive care unit, intubated status post tracheostomy and PEG tube placement. He is on tidal volume 450, FiO2 of 50 and PEEP is down to 10. He is able to follow some simple commands. Pulmonary medicine is planning to discontinue propofol and switched to Precedex. He is on tube feedings. Social work is following for possible discharge to [facility] by the end of the week. 01/31: Patient remains in the intensive care unit intubated and on mechanical ventilation status post PEG tube and trach. Tidal volume 450, FiO2 50 and PEEP of 10. Patient is on propofol. He is on PEG tube feedings at goal. Patient is continued on Lovenox, Decadron, supplements. Cefepime has been discontinued and he is continued on Zyvox and 4, his old. Social work is following closely for discharge planning however at this time, there are no facilities that will accept the patient. 02/01: Patient is out of Covid isolation. Patient remains on mechanical ventilation with tidal volume 450, FiO2 50, PEEP of 10. Patient is on propofol which is to be weaned off today. He still has Sim catheter with good urine output. Feedings are at goal. Patient has occasional cough, mild edema. Patient is refusing IV Dilaudid for pain. Bowel movements been soft but no diarrhea. Patient is afebrile, heart rate 68, respiratory rate 24, blood pressure 130/75, pulse ox 92%. 02/02: Patient is seen in ICU he is currently out of Covid isolation. Remains on mechanical ventilation with trach. Tidal volume 450, rate of 22 with a PEEP of 8 FiO2 of 50%. Patient is currently on propofol which will continue to be weaned today with the addition of Ativan. Sim catheter in place with good urine output. Feedings are at goal. Does have occasional cough, mild edema. 02/03: Patient is seen in ICU remains on mechanical ventilation with trach. Tidal volume 450 rate of 22 with a PEEP of 6 FiO2 of 45%. Patient is off of propofol. Discussion for transitioned to CPAP machine for today. Sim catheter in place with good urine output. Feedings are at goal. Patient does have occasional cough continues have mild edema. Patient is able to follow commands bilateral upper extremity strength equal. REVIEW OF SYSTEMS. Constitutional: No fever, no chills, no night sweats. No weight change. Reports weakness, no fatigue or lethargy. No daytime sleepiness. EENT: No headache. No blurred vision or double vision, no loss of vision. No loss of Hearing, no ringing in the ears, no dizziness. No nasal drainage or congestion. No epistaxis. No sore throat. Lungs: No shortness of breath, reports cough, no sputum production. No wheezing. Cardiovascular: No chest pain, no lower extremity edema. No palpitations. No paroxysmal nocturnal dyspnea. No orthopnea. No lightheadedness or dizziness. No syncopal episodes. Abdominal: no abdominal discomfort. No nausea, vomiting. no diarrhea. No constipation. No bloody or tarry stools. no loss of appetite. Genitourinary: No dysuria, increased frequency, urgency. No urinary retention. Musculoskeletal: No myalgias. No muscle weakness, no gait dysfunction, no frequent falls. No back pain. No neck pain. Integumentary: No wounds, no lesions. No rash or pruritus. No unusual bruising. No change in hair or nails. Neurologic: No aphasia. No facial droop. No change in mentation. No head injury. No headache. No paralysis. No paresthesia. Psychiatric: No depression. No anxiety. No mood swings. Endocrine: No abnormal blood sugars. No weight change. No excessive sweating or thirst. PHYSICAL EXAMINATION Gen: This is a 55-year-old male. He is resting in ICU bed, on mechanical ventilation status post trach and PEG, appears to be comfortable, able to follow commands. HEENT: Head is atraumatic, normocephalic. Pupils equal, round. Sclerae is anict salty. Tracheostomy intact. NECK: Supple. No JVD. No lymphadenopathy. LUNGS: Crackles bilaterally. No accessory muscle usage. No intercostal retractions. HEART: Regular rate and rhythm. No murmur. ABDOMEN: Soft. Bowel sounds are present. No masses. No tenderness. PEG tube in place. EXTREMITIES: No pedal edema. No calf tenderness. NEUROLOGICAL: Patient is awake, and able to follow simple commands. ASSESSMENT AND PLAN 1. Acute hypoxic respiratory failure secondary to Covid 19 pneumonia and possible secondary pneumonia, gram-negative and fungal. Patient required intubation 01/14. Patient is status post trach and PEG tube placement 01/[address] Olivares. Patient started on Remdesivir was discontinued by pulmonary, on January 12/2021 started on baricinib 4 mg daily, Baricitinib discontinued on 01/24. Continue dexamethasone, Lovenox, Zyvox, voriconazole, continue ventilatory management per belt weaver. 2. Acute respiratory distress syndrome secondary to coronavirus pneumonia. 3. Acute septic shock requiring vasopressors. Patient is status post IV fluid bolus and off vasopressors. 4. History of bilateral pulmonary emboli and DVT in 2015. CTA negative for PE. Not on chronic anticoagulation. 5. Acute transaminitis secondary to Covid 19. 6. Generalized osteoarthritis. 7. Degenerative changes in the cervical spine status post fusion of C5-6. 8. 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 9. Elevated liver function tests, transaminitis. 10. Hyperglycemia secondary to steroids. Patient is on NovoLog scale, Levemir 10 units at bedtime added. 11. Severe hyperkalemia status post IV push calcium gluconate, dextrose and regular insulin, IV push sodium bicarb. 12. GI prophylaxis. Protonix. 13. DVT prophylaxis. Lovenox. 14. Acute agitation on ventilator area belt weaver has increased Seroquel to 100 mg twice daily by belt weaver. DISCHARGE PLAN TBD Impression and plan of care have been directed as dictated by the signing physician. Elisabeth Smith nurse practitioner acting as scribe for signing physician. Objective - Vital Signs Vital signs: Vital Signs Temp 98.9 F 02/03/21 08:00 Pulse 67 02/03/21 08:00 Resp 22 02/03/21 08:00 BP 112/64 02/03/21 07:00 Pulse Ox 95 02/03/21 08:00 Intake & Output 02/02/21 02/03/21 02/03/21 18:59 06:59 18:59 Intake Total 0529.557 9908 476 Output Total 1500 580 115 Balance -446.000 643 361 Weight 99 kg 102 kg Intake: IV 676 613 346 Linezolid 600 mg In 300 300 300 Dextrose/Water 1 300ml. bag @ 150 mls/hr IVPB Q12H BRADY Rx#:[id number] Pressure Bags 36 33 6 Sodium Chloride 0.9% 1, 240 160 40 000 ml @ 20 mls/hr IV . Q24H BRADY Rx#:[id number] Voriconazole 200 mg In 100 120 Sodium Chloride 0.9% 100 ml @ 125 mls/hr IVPB Q12HR BRADY Rx#:[id number] Intake, IV Titration 100.000 Amount propofoL 1,000 mg In 100.000 Empty Bag 1 bag @ Titrate IV .Q0M BRADY Rx#: [id number] Tube Feeding 248 520 100 Other 30 90 30 Output: Urine 1500 580 115 Other: Voiding Method Indwelling Catheter Indwelling Catheter Indwelling Catheter # Bowel Movements 1 ABP, PAP, CO, CI - Last Documented Arterial Blood Pressure 129/68 - Labs CBC & Chem 7: 02/03/21 05:35 02/03/21 05:35 Labs: Abnormal Lab Results - Last 24 Hours (Table) 02/02/21 02/02/21 02/03/21 Range/Units 11:40 17:54 00:10 RBC (4.30-5.90) m/uL Hgb (13.0-17.5) gm/dL Hct (39.0-53.0) % ABG pH (7.35-7.45) ABG pO2 (83-108) mmHg ABG HCO3 (21-25) mmol/L ABG Total CO2 (19-24) mmol/L Sodium (137-145) mmol/L Carbon Dioxide (22-30) mmol/L BUN (9-20) mg/dL Glucose (74-99) mg/dL POC Glucose (mg/dL) 144 H 145 H 173 H (75-99) mg/dL 02/03/21 02/03/21 02/03/21 Range/Units 05:35 05:35 05:40 RBC 3.48 L (4.30-5.90) m/uL Hgb 10.9 L (13.0-17.5) gm/dL Hct 32.7 L (39.0-53.0) % ABG pH 7.47 H (7.35-7.45) ABG pO2 67 L (83-108) mmHg ABG HCO3 31 H (21-25) mmol/L ABG Total CO2 32 H (19-24) mmol/L Sodium 136 L (137-145) mmol/L Carbon Dioxide 31 H (22-30) mmol/L BUN 38 H (9-20) mg/dL Glucose 227 H (74-99) mg/dL POC Glucose (mg/dL) (75-99) mg/dL 02/03/21 Range/Units 05:44 RBC (4.30-5.90) m/uL Hgb (13.0-17.5) gm/dL Hct (39.0-53.0) % ABG pH (7.35-7.45) ABG pO2 (83-108) mmHg ABG HCO3 (21-25) mmol/L ABG Total CO2 (19-24) mmol/L Sodium (137-145) mmol/L Carbon Dioxide (22-30) mmol/L BUN (9-20) mg/dL Glucose (74-99) mg/dL POC Glucose (mg/dL) 219 H (75-99) mg/dL
--- NOTE | 2021-02-03 10:08 | P.PN ---
Subjective Progress Note Date: 02/03/21 Principal diagnosis: Respiratory failure Patient doing well today. Tolerating tube feeds at goal. Sedation is been held. No complaints. Objective - Vital Signs Vital signs: Vital Signs Temp 98.9 F 02/03/21 08:00 Pulse 51 L 02/03/21 10:00 Resp 22 02/03/21 10:00 BP 143/89 02/03/21 10:00 Pulse Ox 92 L 02/03/21 10:00 Intake & Output 02/02/21 02/03/21 02/03/21 18:59 06:59 18:59 Intake Total 5389.108 9973 622 Output Total 1500 580 265 Balance -446.000 643 357 Weight 99 kg 102 kg Intake: IV 676 613 392 Linezolid 600 mg In 300 300 300 Dextrose/Water 1 300ml. bag @ 150 mls/hr IVPB Q12H [facility] Rx#:[id number] Pressure Bags 36 33 12 Sodium Chloride 0.9% 1, 240 160 80 000 ml @ 20 mls/hr IV . Q24H [facility] Rx#:[id number] Voriconazole 200 mg In 100 120 Sodium Chloride 0.9% 100 ml @ 125 mls/hr IVPB Q12HR [facility] Rx#:[id number] Intake, IV Titration 100.000 Amount propofoL 1,000 mg In 100.000 Empty Bag 1 bag @ Titrate IV .Q0M [facility] Rx#: [id number] Tube Feeding 248 520 200 Other 30 90 30 Output: Urine 1500 580 265 Other: Voiding Method Indwelling Catheter Indwelling Catheter Indwelling Catheter # Bowel Movements 1 ABP, PAP, CO, CI - Last Documented Arterial Blood Pressure 127/118 - Exam Tracheostomy site without drainage at this time, no erythema Abdomen: Soft, nontender, nondistended, PEG tube in place - Labs CBC & Chem 7: 02/03/21 05:35 02/03/21 05:35 Labs: Abnormal Lab Results - Last 24 Hours (Table) 02/02/21 02/02/21 02/03/21 Range/Units 11:40 17:54 00:10 RBC (4.30-5.90) m/uL Hgb (13.0-17.5) gm/dL Hct (39.0-53.0) % ABG pH (7.35-7.45) ABG pO2 (83-108) mmHg ABG HCO3 (21-25) mmol/L ABG Total CO2 (19-24) mmol/L Sodium (137-145) mmol/L Carbon Dioxide (22-30) mmol/L BUN (9-20) mg/dL Glucose (74-99) mg/dL POC Glucose (mg/dL) 144 H 145 H 173 H (75-99) mg/dL 02/03/21 02/03/21 02/03/21 Range/Units 05:35 05:35 05:40 RBC 3.48 L (4.30-5.90) m/uL Hgb 10.9 L (13.0-17.5) gm/dL Hct 32.7 L (39.0-53.0) % ABG pH 7.47 H (7.35-7.45) ABG pO2 67 L (83-108) mmHg ABG HCO3 31 H (21-25) mmol/L ABG Total CO2 32 H (19-24) mmol/L Sodium 136 L (137-145) mmol/L Carbon Dioxide 31 H (22-30) mmol/L BUN 38 H (9-20) mg/dL Glucose 227 H (74-99) mg/dL POC Glucose (mg/dL) (75-99) mg/dL 02/03/21 Range/Units 05:44 RBC (4.30-5.90) m/uL Hgb (13.0-17.5) gm/dL Hct (39.0-53.0) % ABG pH (7.35-7.45) ABG pO2 (83-108) mmHg ABG HCO3 (21-25) mmol/L ABG Total CO2 (19-24) mmol/L Sodium (137-145) mmol/L Carbon Dioxide (22-30) mmol/L BUN (9-20) mg/dL Glucose (74-99) mg/dL POC Glucose (mg/dL) 219 H (75-99) mg/dL Assessment and Plan (1) COVID Narrative/Plan: Patient doing well at this time. Continue tube feeds at goal. Monitor tracheo stomy and PEG tube sites. Current Visit: Yes Status: Acute Code(s): U07.1 - COVID-19 SNOMED Code(s): 028298460
[2021-02-03] MEDS: LINEZOLID 600 MG in DEXTROSE/WATER 1 300ML.BAG IVPB SCH ×2 (10:14→23:29)
[2021-02-03 11:40] LABS: Glucose,Whole Blood 172 mg/dL (75-99)
--- NOTE | 2021-02-03 12:21 | P.PN ---
Subjective Progress Note Date: 02/03/21 Principal diagnosis: Acute hypoxic respiratory failure secondary to COVID-19 pneumonia 01/27/2021, the patient's condition has a more stabilized. Since yesterday, the patient was taken off paralytics and the patient is currently on propofol running at 75 mcg/kg per minute. He seems to be quite intense a mechanical ventilator. He is also arousable with stimulation. He does have some occasional cough. No spontaneous eye opening. He is quite synchronous with the mechanical ventilator. I have him on VC plus mode at the rate of 22 with a tidal volume of 450 and PEEP of 12 and FiO2 is currently down to 60%. Chest x- ray shows bilateral pulmonary infiltrates, slightly improved compared to yesterday. He was having significant amount of air leak around his tracheostomy tube and we were able to manage that with some had manipulation and positioning of the tracheostomy tube. The patient has a #[address] trache[address] tube in place. On today's evaluation, the leaks are minimal. His peak airway pressures around 33. 70 pressures around 30. The patient had a blood gas today that showed a pH of 7.39 with a pCO2 of 45 and a pO2 of 61 and this was on FiO2 of 60%. The sputum sample is positive for Aspergillus and charity bacterium and the patient remains on a broad-spectrum antibiotics including Zyvox, voriconazole, and IV cefepime. His urine culture also rim turning finisher to be positive for E. coli. Meanwhile, the patient is hemodynamically stable. I'm a bit concerned about his kidney function. Creatinine today was up to 1.28 and the patient is producing adequate amount of urine output in the order of 50-60 mL an hour. In terms of his inflammatory markers, the patient has a d-dimer of 5.45 and LDH is 1073, improved compared to yesterday and his CRP level is down to 16.3. Meanwhile, he is still being treated with Decadron at a dose of 60 mg IV every 24 hours. He was taken off the Baricitinib several days ago. He remains on Lovenox for DVT prophylaxis at a dose of 40 mg subcu every 24 hours. He remains on Levemir insulin 10 units a day in addition to NovoLog sliding scale coverage. No other significant events overnight. He did have a bout of hyperkalemia and the potassium level was as high as 6.2 and this was managed appropriately and the potassium level is improved. Hemodynamically stable. No pressors. Liver function tests have been abnormal yet stable. The patient has not produced any bowel movement activity at. The patient was started on lactulose. Reevaluated today on 01/28/2021, patient remains in the ICU, intubated and mechanically ventilated. Patient is on volume control plus the rate of 20 to tell volume 450 FiO2 60% PEEP of 10. ABG showed a pO2 of 65 pCO2 39 pH of 7.42 on 50% FiO2. Remains on propofol at 55 mcg/kg/m, not requiring any other sedatives, he is off paralytics. Patient is status post tracheostomy and PEG tube placement on 01/23. Patient is on enteral feeding using vital AF at 1 3 mL per hour. He is also on Decadron at 60 mg IV push twice a day. Patient is arousable, follows very simple instructions. Chest x-ray continues to show bilateral Infiltrates, right more so than left. Tracheostomy seems to be intact. ABC is relatively normal d-dimer is 5.63 electrolytes are normal , BUN is 38 creatinine 1.18 liver enzymes are a bit elevated ALT of 250 AST of 95 LDH is 1025 C-reactive protein 6.2. Patient remains on the COVID-19 cocktail, he is also on voriconazole. Zyvox. Decadron 6 mg IV push twice a day. Cefepime. Reevaluated today on 01/29/2021, remains intubated and mechanically ventilated. Patient is on volume control plus of 450, rate 22 FiO2 60% PEEP of 10 ABG showed a pO2 of 65 pCO2 of 37 pH of 7.45. Hence no changes were made in the ventilator settings. LDH remains elevated at 135 to propofol is at 55, patient is off norepinephrine, off Precedex, he is off fentanyl, and he is doing relatively well considering his overall picture, patient had intermittent episodes of a gitation and restlessness, and I have recommended we start the patient on Seroquel 50 mg twice a day. And hopefully can titrate the upper fall down and possibly discontinue. Chest x-ray continues to show bilateral interstitial infiltrates, not much of the changes noted on the chest x-ray. WBC count today is 11.1 hemoglobin 11.4. Basic metabolic profile is normal BUN is 39 creatinine is 1.05. LDH is noted to be a bit elevated today compared to yesterday 1352. Reevaluated today on 01/30/2021, remains in the ICU, intubated, patient is status post tracheostomy and PEG tube placement, he is on assist control rate of 22 volume control +450 FiO2 50% PEEP is at 10. Patient remains on propofol, he is at 50 mcg/kg/m, arousable, follows very simple instructions, hence I plan to discontinue propofol altogether and switch the patient to Precedex. Patient remains on enteral feedings, tolerating enteral feedings well, patient is not requiring any pressors, he is hemodynamically stable. Chest x-ray continues to show bilateral infiltrates. CBC today showed the reset of 9.2 hemoglobin 10.6. ABG today showed a pO2 of 65 pCO2 of 43 pH of 7.41 this is on a 55% FiO2. Basic metabolic profile is normal renal profile is improved with BUN 34 creatinine 1.16. Reevaluated today on 01/31/2021, patient remains in the ICU, intubated and mechanically ventilated. He is on assist control rate of 22, volume control +450 FiO2 50% PEEP is at 10. ABG showed a pO2 of 58 pCO2 of 38 pH of 7.46. Patient is still requiring propofol, he could not tolerate switching propofol to Precedex as he became extremely agitated and restless tachypneic and tachycardic, hence he was placed back on propofol at 60 mcg/kg/m. Chest x-ray continues to show bilateral infiltrates. Improved compared to his initial baseline chest x-ray. CBC is relatively unremarkable electrolytes are unremarkable. Renal profile is normal. Patient remains on enteral feeding via PEG tube. Remains on the COVID-19 cocktail, remains on Decadron. Remains on Lovenox 40 mg subcu daily. He is on Dilaudid when necessary. Remains on Protonix, Seroquel was added a few days ago, and I will likely increase the dose. Patient is still on Zyvox and he is on voriconazole. Patient is off cefepime. Reevaluated today on 02/01/2021, patient remains in the ICU, intubated and mechanically ventilated, continues to have tracheostomy in place, and seems to be intact. Patient is awake, maintain on propofol at 40 mcg/kg/m, however I have instructed the nursing staff today to cut down the propofol and hopefully discontinued if possible as long as the patient remains calm and not agitated. We have tried in the past titrating propofol and with dried Precedex on this patient, and nothing seems to help, however I went ahead and increased his dose of Seroquel. Hoping we could get the patient off propofol. Patient is on volum e control +450 rate of 22 of 10 FiO2 50%. ABG is marginal with a pO2 of 63 pCO2 of 40 pH of 7.43. WBC count 9.2 hemoglobin 10.4 electrodes are normal renal profile is normal. Chest x-ray continues to show bilateral infiltrates, not much of a change noted. Medications lund, patient remains on Decadron 6 mg IV push twice a day, he is on Lovenox 40 mg subcu daily, lactulose, Zyvox, voriconazole, Seroquel 100 twice a day, Protonix 40 mg IV push daily, he is not requiring any pressors, and he is off cefepime. Reevaluated today on 02/02/2021, patient is basically about the same. Remains intubated and mechanically ventilated. Remains on propofol at 30 mcg/kg/m, not requiring any other sedation medication, patient had poor tolerance to Precedex. Today I recommended a trial of Ativan 1 mg IV push every 4 hours when necessary, hoping we can taper down and possibly discontinue propofol al together. Patient is hemodynamically stable, not requiring any pressors. Remains on assist control rate of 22 volume control plus of 450 FiO2 50% remains on antibiotics and antifungal. Remains on Protonix for GI prophylaxis. And he is off cefepime. ABG today showed a pO2 of 75 pCO2 of 42 pH of 7.47. WBC count is 9.4 hemoglobin 11.6. Electrolytes and renal profile are normal. Patient remains on the COVID-19 cocktail. Lovenox 40 mg subcu daily. He remains on Zyvox. Remains on ascorbic acid. And on zinc. Patient is also on vitamin D Reevaluated today on 02/03/2021, patient remains in the ICU, intubated and mechanically ventilated. Finally the patient is off propofol, he is on Ativan when necessary, he is also on Seroquel, and overall I believe the patient is making a significant improvement in his intermittent episodes of agitations, and his requirement for sedation. Today I reviewed his ventilator settings and he is on assist control rate of 22 tidal volume 450 FiO2 50% PEEP of 6. His chest x-ray continues to show some bibasilar infiltrates bilaterally. Minimal impr ovement compared to his baseline. ABG showed a pO2 of 67 pCO2 43 pH of 7.47 hence I recommended that that the patient goes on a trial of weaning with a pressure support of 10 and CPAP. WBC count is 9.2 hemoglobin is 10.9. Medication list was reviewed, patient is on vitamin C, Peridex, vitamin D, Decadron 6 mg IV push twice a day, Lovenox 40 mg subcu daily, Dilaudid when necessary, Ativan when necessary, Zyvox 600 mg IV to 12 hours, Protonix 40 mg IV push daily Seroquel 100 mg by mouth twice a day voriconazole, and zinc. Objective - Vital Signs Vital signs: Vital Signs Temp 98.9 F 02/03/21 08:00 Pulse 51 L 02/03/21 10:00 Resp 22 02/03/21 10:00 BP 143/89 02/03/21 10:00 Pulse Ox 92 L 02/03/21 10:00 Intake & Output 02/02/21 02/03/21 02/03/21 18:59 06:59 18:59 Intake Total 9818.195 3496 695 Output Total 1500 580 415 Balance -446.000 643 280 Weight 99 kg 102 kg Intake: IV 676 613 415 Linezolid 600 mg In 300 300 300 Dextrose/Water 1 300ml. bag @ 150 mls/hr IVPB Q12H [facility] Rx#:[id number] Pressure Bags 36 33 15 Sodium Chloride 0.9% 1, 240 160 100 000 ml @ 20 mls/hr IV . Q24H [facility] Rx#:[id number] Voriconazole 200 mg In 100 120 Sodium Chloride 0.9% 100 ml @ 125 mls/hr IVPB Q12HR [facility] Rx#:[id number] Intake, IV Titration 100.000 Amount propofoL 1,000 mg In 100.000 Empty Bag 1 bag @ Titrate IV .Q0M [facility] Rx#: [id number] Tube Feeding 248 520 250 Other 30 90 30 Output: Urine 1500 580 415 Other: Voiding Method Indwelling Catheter Indwelling Catheter Indwelling Catheter # Bowel Movements 1 ABP, PAP, CO, CI - Last Documented Arterial Blood Pressure 127/118 - Exam Physical Exam: Revealed a 55-year-old white male in no distress. Head: Atraumatic, normocephalic. Tracheostomy is unremarkable. HEENT:[Neck is supple.] [No neck masses.] [No thyromegaly.] [No JVD.] Chest: Symmetrical chest expansion crackles at the bases bilaterally. Cardiac Exam: [Normal S1 and S2, no S3 gallop, no murmur.] Abdomen: [Soft, nontender, no megaly, no rebound, no guarding, normal bowel sounds.] PEG tube is intact. Extremities: 1+ bipedal edema, no clubbing, no cyanosis. Neurological Exam: Awake alert oriented 3 in the gross focal deficit except for generalized weakness Psychiatric: Normal mood, affect and normal mental status examination. Seems to be appropriate Skin: No rashes. - Labs CBC & Chem 7: 02/03/21 05:35 02/03/21 05:35 Labs: Abnormal Lab Results - Last 24 Hours (Table) 02/02/21 02/03/21 02/03/21 Range/Units 17:54 00:10 05:35 RBC 3.48 L (4.30-5.90) m/uL Hgb 10.9 L (13.0-17.5) gm/dL Hct 32.7 L (39.0-53.0) % ABG pH (7.35-7.45) ABG pO2 (83-108) mmHg ABG HCO3 (21-25) mmol/L ABG Total CO2 (19-24) mmol/L Sodium (137-145) mmol/L Carbon Dioxide (22-30) mmol/L BUN (9-20) mg/dL Glucose (74-99) mg/dL POC Glucose (mg/dL) 145 H 173 H (75-99) mg/dL 02/03/21 02/03/21 02/03/21 Range/Units 05:35 05:40 05:44 RBC (4.30-5.90) m/uL Hgb (13.0-17.5) gm/dL Hct (39.0-53.0) % ABG pH 7.47 H (7.35-7.45) ABG pO2 67 L (83-108) mmHg ABG HCO3 31 H (21-25) mmol/L ABG Total CO2 32 H (19-24) mmol/L Sodium 136 L (137-145) mmol/L Carbon Dioxide 31 H (22-30) mmol/L BUN 38 H (9-20) mg/dL Glucose 227 H (74-99) mg/dL POC Glucose (mg/dL) 219 H (75-99) mg/dL 02/03/21 Range/Units 11:38 RBC (4.30-5.90) m/uL Hgb (13.0-17.5) gm/dL Hct (39.0-53.0) % ABG pH (7.35-7.45) ABG pO2 (83-108) mmHg ABG HCO3 (21-25) mmol/L ABG Total CO2 (19-24) mmol/L Sodium (137-145) mmol/L Carbon Dioxide (22-30) mmol/L BUN (9-20) mg/dL Glucose (74-99) mg/dL POC Glucose (mg/dL) 172 H (75-99) mg/dL Assessment and Plan Assessment: Impression: Acute hypoxic respiratory failure secondary to COVID-19 pneumonia, intubated on 01/14, treated initially with Decadron and baricitinib, underwent tracheostomy on 01/23 and PEG tube placement. Developed superinfection requiring antibiotics and antifungal treatment. Sputum cultures have grown Aspergillus and cor ynebacterium. Patient is now on Zyvox, and voriconazole. And he is off baricitinib, ARDS associated with COVID-19 pneumonia Degenerative joint disease Aspergillus fumigatus and sputum Elevated liver enzymes secondary to COVID-19 infection Acute kidney injury secondary to COVID-19 infection/pneumonia. Resolved. critical illness polyneuropathy Patient will need a long course of rehabilit ation. Recommendation: Continue ventilatory support, however today I plan to give the patient a weaning trial with a pressure support of 10 and CPAP. And hopefully in the next 24 hours the patient could even go on trach collar. Continue tracheostomy care. Continue Ativan when necessary. Continue antibiotics and antifungals patient is on Zyvox and on voriconazole Continue enteral feeding and nutritional support. Patient has a PEG tube in place. Continue Lovenox. Continue Decadron. Continue COVID-19 cocktail. patient remains critically ill. Critical care time is over 30 minutes. Time with Patient: Greater than 30
[2021-02-03] MEDS: SODIUM CHLORIDE 0.9% 1,000 ML IV SCH (17:01)
[2021-02-03 18:02] LABS: Glucose,Whole Blood 220 mg/dL (75-99)
[2021-02-03] MEDS: INSULIN DETEMIR (LEVEMIR) 100 UNIT/ML SYR SQ SCH (20:42)
[2021-02-03 23:41] LABS: Glucose,Whole Blood 185 mg/dL (75-99)
[2021-02-04 05:13] LABS: ABG Base Excess 7.4 mmol/L; ABG HCO3 30 mmol/L (21-25); ABG Oxygen Saturation 97.6 % (94-97); ABG PCO2 37 mmHg (35-45); ABG PH 7.52 (7.35-7.45); ABG PO2 87 mmHg (83-108); ABG TCO2 31 mmol/L (19-24); Allen Test Performed? Yes
[2021-02-04 05:20] LABS: Glucose,Whole Blood 211 mg/dL (75-99)
[2021-02-04 05:47] LABS: African American GFR (CKD) >90 (>60 ml/min/1.73 sqM); Anion Gap 5 mmol/L; Blood Urea Nitrogen 40 mg/dL (9-20); Calcium 8.5 mg/dL (8.4-10.2); Carbon Dioxide 29 mmol/L (22-30); Chloride 101 mmol/L (98-107); Glucose 210 mg/dL (74-99); Non-African American GFR(CKD) 89 (>60 ml/min/1.73 sqM); Potassium 4.3 mmol/L (3.5-5.1); Sodium 135 mmol/L (137-145)
[2021-02-04 05:54] LABS: HCT 33.7 % (39.0-53.0); HGB 11.1 gm/dL (13.0-17.5); MCH 31.4 pg (25.0-35.0); MCHC 32.8 g/dL (31.0-37.0); MCV 95.6 fL (80.0-100.0); Mean Platelet Volume 8.2; Platelet Count 230 k/uL (150-450); RBC 3.53 m/uL (4.30-5.90); RDW 13.9 % (11.5-15.5); WBC 9.9 k/uL (3.8-10.6)
[2021-02-04] MEDS: DEXMEDETOMIDINE/0.9% NACL(PMX) 400 MCG in EMPTY BAG 1 BAG IV SCH (06:55)
[2021-02-04] MEDS: NOREPINEPHRINE 4 MG in SODIUM CHLORIDE 0.9% 250 ML IV SCH (06:56)
[2021-02-04 06:58] LABS: Glucose,Whole Blood 163 mg/dL (75-99)
[2021-02-04] MEDS: LORazepam 2 MG/ML INJ IV PRN (07:00)
[2021-02-04] MEDS: INSULIN ASPART (NovoLOG) 100 UNIT/ML VIAL SQ SCH ×3 (07:00→18:07)
--- NOTE | 2021-02-04 08:20 | XR ---
EXAMINATION TYPE: XR chest 1V portable DATE OF EXAM: 02/04/2021 COMPARISON: Chest x-ray 02/03/2021 HISTORY: Pneumonia, tracheostomy tube placement, Covid TECHNIQUE: Single frontal view of the chest is obtained. FINDINGS: Bilateral airspace disease shows a similar appearance. Tracheostomy tube is not centered o rosa the tracheal air column, findings somewhat change from prior exam. Right-sided PICC line is in pl judy. No evident pneumothorax or pleural effusion. Cardiac mediastinal silhouette shows a similar appe arance. There are overlying leads. Postop change noted to the cervical spine. IMPRESSION: Correlate for tracheostomy tube placement, consider follow-up as indicated. Results rela yed telephonically to the patient's nurse at the time of interpretation, to [place]. Findings consistent with Covid pneumonia, consider ARDS.
[2021-02-04] MEDS: ZINC SULFATE 220 MG CAP PO SCH (09:50)
[2021-02-04] MEDS: CHOLECALCIFEROL 25 MCG (1000 IU) TABLET PO SCH (09:50)
[2021-02-04] MEDS: ENOXAPARIN 40 MG/0.4 ML SYRINGE SQ SCH (09:51)
[2021-02-04] MEDS: QUEtiapine 100 MG TAB PO SCH ×2 (09:51→20:37)
[2021-02-04] MEDS: DEXAMETHASONE SOD PHOSPHATE 10 MG/ML 1 ML VIAL IVP SCH ×2 (09:51→20:36)
[2021-02-04] MEDS: CHLORHEXIDINE GLUCONATE 15 ML CUP MUCOUS MEM SCH ×2 (09:51→20:36)
[2021-02-04] MEDS: ASCORBIC ACID 500 MG TAB PO SCH (09:51)
[2021-02-04] MEDS: PANTOPRAZOLE 40 MG/10 ML VIAL IVP SCH (09:52)
[2021-02-04 11:48] LABS: Glucose,Whole Blood 125 mg/dL (75-99)
--- NOTE | 2021-02-04 12:37 | P.PN ---
Subjective Progress Note Date: 02/04/21 CHIEF COMPLAINT: COVID-19 pneumonia HISTORY OF PRESENT ILLNESS: Patient in the ICU and is on trach collar. Patient is status post trach and PEG tube placement. Patient is sitting at bedside chair. His tube feeds are at goal. No residual reported. Afebrile. WBC 9.9 PHYSICAL EXAM: VITAL SIGNS: Reviewed. GENERAL: Well-developed in no acute distress. HEENT: No sclera icterus. Extraocular movements grossly intact. Moist buccal mucosa. Head is atraumatic, normocephalic. Tracheostomy site clean dry and intact ABDOMEN: Soft. Nondistended. Nontender. PEG tube site clean dry and intact NEUROLOGIC: Awake ASSESSMENT: 1. Acute hypoxic respiratory failure secondary to COVID-19 pneumonia status post tracheostomy placement 2. Severe protein calorie malnutrition status post PEG tube placement PLAN: -Continue to monitor tracheostomy and PEG tube sites -Continue ICU management -Continue supportive care Physician [facility] Manager note has been reviewed by physician. Signing provider agrees with the documented findings, assessment, and plan of care. Objective - Vital Signs Vital signs: Vital Signs Temp 98.3 F 02/04/21 08:00 Pulse 88 02/04/21 11:00 Resp 27 H 02/04/21 11:00 BP 106/79 02/04/21 11:00 Pulse Ox 78 L 02/04/21 11:00 Intake & Output 02/03/21 02/04/21 02/04/21 18:59 06:59 18:59 Intake Total 1266 1256 492 Output Total 1370 1225 770 Balance -104 31 -278 Intake: IV 576 566 78 Linezolid 600 mg In 300 300 Dextrose/Water 1 300ml. bag @ 150 mls/hr IVPB Q12H [facility] Rx#:[id number] Pressure Bags 36 36 18 Sodium Chloride 0.9% 1, 240 130 60 000 ml @ 20 mls/hr IV . Q24H [facility] Rx#:[id number] Voriconazole 200 mg In 100 Sodium Chloride 0.9% 100 ml @ 125 mls/hr IVPB Q12HR [facility] Rx#:[id number] Tube Feeding 600 600 284 Other 90 90 130 Output: Urine 1370 1225 770 Other: Voiding Method Indwelling Catheter Indwelling Catheter Indwelling Catheter ABP, PAP, CO, CI - Last Documented Arterial Blood Pressure 118/93 - Labs CBC & Chem 7: 02/04/21 05:00 02/04/21 05:00 Labs: Abnormal Lab Results - Last 24 Hours (Table) 02/03/21 02/03/21 02/04/21 Range/Units 18:01 23:39 05:00 RBC 3.53 L (4.30-5.90) m/uL Hgb 11.1 L (13.0-17.5) gm/dL Hct 33.7 L (39.0-53.0) % ABG pH (7.35-7.45) ABG HCO3 (21-25) mmol/L ABG Total CO2 (19-24) mmol/L ABG O2 Saturation (94-97) % Sodium (137-145) mmol/L BUN (9-20) mg/dL Glucose (74-99) mg/dL POC Glucose (mg/dL) 220 H 185 H (75-99) mg/dL 02/04/21 02/04/21 02/04/21 Range/Units 05:00 05:12 05:19 RBC (4.30-5.90) m/uL Hgb (13.0-17.5) gm/dL Hct (39.0-53.0) % ABG pH 7.52 H (7.35-7.45) ABG HCO3 30 H (21-25) mmol/L ABG Total CO2 31 H (19-24) mmol/L ABG O2 Saturation 97.6 H (94-97) % Sodium 135 L (137-145) mmol/L BUN 40 H (9-20) mg/dL Glucose 210 H (74-99) mg/dL POC Glucose (mg/dL) 211 H (75-99) mg/dL 02/04/21 02/04/21 Range/Units 06:57 11:46 RBC (4.30-5.90) m/uL Hgb (13.0-17.5) gm/dL Hct (39.0-53.0) % ABG pH (7.35-7.45) ABG HCO3 (21-25) mmol/L ABG Total CO2 (19-24) mmol/L ABG O2 Saturation (94-97) % Sodium (137-145) mmol/L BUN (9-20) mg/dL Glucose (74-99) mg/dL POC Glucose (mg/dL) 163 H 125 H (75-99) mg/dL
--- NOTE | 2021-02-04 13:20 | P.PN ---
Subjective Progress Note Date: 02/04/21 Principal diagnosis: Coronavirus associated pneumonia. COVID-19 pneumonia 55-year-old male patient of Dr. Palm, with a past medical history of bilateral pulmonary emboli, and left leg DVT, migraine headaches, hiatal hernia, inguinal hernias, osteoarthritis with previous history of right shoulder arthroscopy, cervical fusion, nonsmoker, who came into the emergency department on 01/11/2021 for evaluation of shortness of breath, fatigue, cough, fever. His symptoms started on Thursday01/11/2021 and became progressive. Patient is not vaccinated against COVID-19. Chest x-ray today shows patchy bilateral airspace disease especially in the mid and lower lungs. COVID-19 PCR was negative, his white count is 6.1, hemoglobin is 16.8, platelet count is 128, lymphocyte count is 0.9, d-dimer is 0.82, coagulation profile was within normal limits, sodium is 131, the rest of electrolytes are within normal limits, troponin was less than 0.012, LFTs were within normal limits, lactic acid was 1.1. CT angiogram of the chest showed suboptimal study without central acute pulmonary embolism, and bilateral multifocal and confluent groundglass opacities right greater than left and greater in the lower lungs consistent with history of COVID-19 infection. Pulse ox was 85%, patient was febrile on presentation with a temp of 101.1F, he was placed on 3 L of supplemental oxygen, he is awake and alert, does not appear to be in any acute distress, he is ambulating, and does have exertional dyspnea but no acute distress. He was started on Decadron 10 mg IV push 1, prophyla ctic Lovenox, and multivitamins The patient is seen today 01/12/2021 in follow-up on the regular medical floor. He is currently sitting up in a chair at the bedside. His oxygen requirements to go up. He is currently on a 15 L nonrebreather mask with O2 saturation 91%. He was on 4 L yesterday. He is having more shortness of breath. 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 D-dimer 0.84. LDH 684. C-reactive protein 7.0. He is on day #2 of Remdesivir. He remains on Decadron, Lovenox, vitamin supplements. 0.9 normal saline at 130 ML's per hour. The patient is seen today 01/13/2021 in follow-up on the regular medical floor. He is currently sitting up in a chair at the bedside. Awake and alert. He did have some issues with worsening shortness of breath on minimal exertion. He is on the AirVo high flow oxygen at 4 L and 90% FiO2 plus a nonrebreather mask to maintain O2 saturations in the high 80s and low 90s. He's been afebrile. Hemodynamically stable. White count 8.8. Hemoglobin 13.9. Lymphocytes 0.9. Sodium 137. Potassium 4.1. Creatinine 0.4. He is continued on Baricitinib, Decadron, Lovenox, vitamin supplements. Progress note dated 01/14/2021. This morning, the patient was on BiPAP, with settings of 14/6 and 100%. He change IPAP of 14-16. The patient's getting saline at 130 mL an hour, and Precedex at 0.4 mcg/kg/h. I did speak to the patient about the possibility of intubation and mechanical ventilation. The patient was also placed on IV heparin, given his prior history of DVT and pulmonary embolism. White count 7.4, hemoglobin 14.4, hematocrit 43.8, platelet count 165,000. D-dimer was 12.04. Sodium 135, potassium 4.7, chlorides 107, CO2 23, anion gap 5, BUN 24, and creatinine 0.82. LDH was 2929. C-reactive protein was 5.2. The patient's chest x-ray shows diffuse bilateral infiltrates. This patient was admitted to the hospital on January 11, and moved to the intensive care unit on January 13 for worsening hypoxemic respiratory failure. Progress note dated 01/15/2021. Yesterday, the patient was intubated and mechanically ventilated, after developing worsening hypoxemic respiratory failure. A central line was placed, as well as an art line. The patient remains on mechanical ventilator. Currently, he's on the volume assist control mode, rate 26, tidal volume 450, FiO2 100%, and PEEP of 15. Arterial blood gases show a PaO2 of 129, pCO2 58, and a pH is 7.24. With that, the rate is increased to 30 breaths per minute, and the FiO2 was reduced down to 80%. The patient remains on propofol, at 50 mcg/kg/m, Nimbex, at 2 mcg/kg/m, and norepinephrine at 0.03 mcg/kg/m. The patient's also getting saline at 130 mL an hour, IV heparin, and vital, at 23 mL an hour, which is goal. White count 9.5, hemoglobin 13.4, hematocrit 42.3, and platelet count 205,000. PTT is 119. Sodium 140, potassium 4.9, chlorides 111, CO2 25, anion gap 4, BUN 20, creatinine 0.88. The patient's albumin was 2.7. AST was 126 with an ALT of 183. The patient's chest x-ray is consistent with d iffuse bilateral infiltrates, consistent with coronavirus associated pneumonia, and acute respiratory distress syndrome. Progress note dated 01/16/2021. 55-year-old male, with coronavirus associated pneumonia. The patient was intubated and mechanically ventilated on January 14 for worsening hypoxemic respiratory failure. He remains on the ventilator. The patient is on the volume assist control mode, rate 30, tidal volume 450, FiO2 80%, PEEP of 15. Arterial blood gases show pO2 of 53, pCO2 43, and a pH is 7.39. Those blood gases were done on 50%, and subsequent currently, he was increased up to 80%. I've reduced him back down to 60%. In addition, the patient's getting saline at 130 mL an hour, which will be reduced down to KVO, heparin, via weightbase protocol, propofol, at 70 mcg/kg/m, Nimbex at 1.25 mcg/kg/m vital 1.2 at 23 mL an hour, which is goal, and norepinephrine, which is been weaned off recently. White count 9.5, hemoglobin 12.4, hematocrit 38.5, platelet count 199,000. PTT is 40.9, d-dimer is 4.98. Electrolytes, for some reason were not drawn. Chest x-ray shows diffuse bilateral infiltrates, consistent with coronavirus associated pneumonia. Progress note dated 01/17/2021. 55-year-old male, with coronavirus pneumonia. The patient was intubated and mechanically ventilated on January 14 for worsening hypoxemic respiratory failure. The patient remains on mechanical ventilator. He is on the volume assist control mode, rate 30, tidal volume 450, FiO2 60%, and PEEP of 15. Blood gases show a PaO2 of 79, CO2 53, and pH 7.35. The patient remains on Nimbex at 2.25 mcg/kg/m, a fall at 70 mcg/kg/m, heparin via weightbase protocol, saline at 20 mL an hour, and vital AF at 14, which is goal. The patient was prolonged for 16 hours yesterday. The patient does have a cuff leak on its endotracheal tube. We'll have anesthesia take a look at it. The 2 may need to be replaced. White count 9.2, he will been 12.6, hematocrit 37.3, and platelet count 340,000. PTT is 48.4. Sodium 135, potassium 4.1, chlorides 104, CO2 27, anion gap 4, BUN 20, with a creatinine 0.73. Albumin is 2.5. Chest x-ray shows diffuse bilateral infiltrates consistent with coronavirus pneumonia. Progress note dated 01/18/2021. 55-year-old male, with coronavirus pneumonia. The patient was placed on the mechanical ventilator on January 14, for worsening hypoxemic respiratory failure. He remains on the ventilator. The patient is on the volume assist control mode, rate 30, tidal volume 450, FiO2 55%, and PEEP 15. Blood gases show pO2 of 88, pCO2 of 44, and a pH is 7.48. These blood gases were done actually on 60%. The patient remains on heparin via weightbase protocol, propofol at 70 mcg/kg/m, Nimbex at 2.25 mcg/kg/m, vital AF at 14 mL an hour which is goal. The patient was proned again for 16 hours. White count 7.7, hemoglobin 12.2, hematocrit 36.6, and platelet count 2 49,000. Sodium 138, potassium 4, chlorides 103, CO2 31, anion gap 4, BUN 20, and creatinine 0.73. Chest x-ray shows diffuse bilateral infiltrates, consistent with acute respiratory distress syndrome. Progress note dated 01/20/2021. 55-year-old male, admitted with a diagnosis of coronavirus associated pneumonia. The patient is again seen in room 254. He remains on the mechanical ventilator. He is on the volume assist control mode, rate 30, tidal volume 450, FiO2 50%, PEEP of 5. Arterial blood gases show a PaO2 of 77, PaCO2 42, and a pH is 7.47. The patient remains on Nimbex at 3 mcg/kg/m, propofol at 50 mcg/kg/m, heparin via weightbase protocol, and vital AF at 14 mL an hour, which is goal. Current labs include a white count of 8, hemoglobin 11.7, hematocrit 34.9, and a platelet count of 292,000. PTT is 44.2. Sodium 137, potassium 4, chlorides 103, CO2 28, anion gap 6, BUN 24, and creatinine 0.73. AST is 118 with an ALT of 243. LDH is 1228. C-reactive protein is 8.7. Chest x-ray continues to show bilateral airspace disease, which is essentially unchanged. Reevaluated today on 01/31/2021, patient remains in the ICU, intubated and mechanically ventilated. He is on assist control rate of 22, volume control +450 FiO2 50% PEEP is at 10. ABG showed a pO2 of 58 pCO2 of 38 pH of 7.46. Patient is still requiring propofol, he could not tolerate switching propofol to Precedex as he became extremely agitated and restless tachypneic and tachycardic, hence he was placed back on propofol at 60 mcg/kg/m. Chest x-ray continues to show bilateral infiltrates. Improved compared to his initial baseline chest x-ray. CBC is relatively unremarkable electrolytes are unremarkable. Renal profile is normal. Patient remains on enteral feeding via PEG tube. Remains on the COVID-19 cocktail, remains on Decadron. Remains on Lovenox 40 mg subcu daily. He is on Dilaudid when necessary. Remains on Protonix, Seroquel was added a few days ago, and I will likely increase the dose. Patient is still on Zyvox and he is on voriconazole. Patient is off cefepime. Reevaluated today on 02/01/2021, patient remains in the ICU, intubated and mechanically ventilated, continues to have tracheostomy in place, and seems to be intact. Patient is awake, maintain on propofol at 40 mcg/kg/m, however I have instructed the nursing staff today to cut down the propofol and hopefully discontinued if possible as long as the patient remains calm and not agitated. We have tried in the past titrating propofol and with dried Precedex on this patient, and nothing seems to help, however I went ahead and increased his dose of Seroquel. Hoping we could get the patient off propofol. Patient is on volume control +450 rate of 22 of 10 FiO2 50%. ABG is marginal with a pO2 of 63 pCO2 of 40 pH of 7.43. WBC count 9.2 hemoglobin 10.4 electrodes are normal renal profile is normal. Chest x-ray continues to show bilateral infiltrates, not much of a change noted. Medications lund, patient remains on Decadron 6 mg IV push twice a day, he is on Lovenox 40 mg subcu daily, lactulose, Zyvox, voriconazole, Seroquel 100 twice a day, Protonix 40 mg IV push daily, he is not requiring any pressors, and he is off cefepime. Reevaluated today on 02/02/2021, patient is basically about the same. Remains intubated and mechanically ventilated. Remains on propofol at 30 mcg/kg/m, not requiring any other sedation medication, patient had poor tolerance to Precedex. Today I recommended a trial of Ativan 1 mg IV push every 4 hours when necessary, hoping we can taper down and possibly discontinue propofol altogether. Patient is hemodynamically stable, not requiring any pressors. Remains on assist control rate of 22 volume control plus of 450 FiO2 50% remains on antibiotics and antifungal. Remains on Protonix for GI prophylaxis. And he is off cefepime. ABG today showed a pO2 of 75 pCO2 of 42 pH of 7.47. WBC count is 9.4 hemoglobin 11.6. Electrolytes and renal profile are normal. Patient remains on the COVID-19 cocktail. Lovenox 40 mg subcu daily. He remain s on Zyvox. Remains on ascorbic acid. And on zinc. Patient is also on vitamin D Reevaluated today on 02/03/2021, patient remains in the ICU, intubated and mechanically ventilated. Finally the patient is off propofol, he is on Ativan when necessary, he is also on Seroquel, and overall I believe the patient is making a significant improvement in his intermittent episodes of agitations, and his requirement for sedation. Today I reviewed his ventilator settings and he is on assist control rate of 22 tidal volume 450 FiO2 50% PEEP of 6. His chest x-ray continues to show some bibasilar infiltrates bilaterally. Minimal improvement compared to his baseline. ABG showed a pO2 of 67 pCO2 43 pH of 7.47 hence I recommended that that the patient goes on a trial of weaning with a pressure support of 10 and CPAP. WBC count is 9.2 hemoglobin is 10.9. Medication list was reviewed, patient is on vitamin C, Peridex, vitamin D, Decadron 6 mg IV push twice a day, Lovenox 40 mg subcu daily, Dilaudid when necessary, Ativan when necessary, Zyvox 600 mg IV to 12 hours, Protonix 40 mg IV push daily Seroquel 100 mg by mouth twice a day voriconazole, and zinc. Progress note dated 02/04/2021. 55-year-old male, seen in room 251. The patient was admitted on January 11. He came in with woodruff virus associated pneumonia. He came to the intensive care unit on January 13, and was intubated on the . The patient underwent tracheostomy and PEG tube placement on January 23. Currently, he sitting at the bedside. He is on pressure support of 10 and CPAP of 5 and 45%. He's been on that for 24 hours. He looks very comfortable. I told respiratory therapist that we could try to transition him to a trach collar. The patient is receiving saline at KVO. He is getting vital AF at 50 mL an hour, which is goal. The patient is on multiple antibiotics including voriconazole and Zyvox, neither of which needs to be continued. Blood gases showed a pO2 of 87, pCO2 of 37, and a pH is 7.52. White count 9.9, hemoglobin 11.1, hematocrit 33.7, platelet count 230,000. Sodium 135, potassium 4.3, chlorides 101, CO2 29, anion gap 5, BUN 40, creatinine 0.96. Chest x-ray shows diffuse bilateral infiltrates consistent with coronavirus pneumonia and/or ARDS. Objective - Vital Signs Vital signs: Vital Signs Temp 98.5 F 02/04/21 12:00 Pulse 56 L 02/04/21 13:00 Resp 19 02/04/21 13:00 BP 105/69 02/04/21 13:00 Pulse Ox 97 02/04/21 13:00 Intake & Output 02/03/21 02/04/21 02/04/21 18:59 06:59 18:59 Intake Total 1266 1256 585 Output Total 1370 1225 870 Balance -104 31 -285 Intake: IV 576 566 91 Linezolid 600 mg In 300 300 Dextrose/Water 1 300ml. bag @ 150 mls/hr IVPB Q12H [facility]AD[facility] Rx#:[id number] Pressure Bags 36 36 21 Sodium Chloride 0.9% 1, 240 130 70 000 ml @ 20 mls/hr IV . Q24H [facility]AD[facility] Rx#:[id number] Voriconazole 200 mg In 100 Sodium Chloride 0.9% 100 ml @ 125 mls/hr IVPB Q12HR [facility]AD[facility] Rx#:[id number] Tube Feeding 600 600 334 Other 90 90 160 Output: Urine 1370 1225 870 Other: Voiding Method Indwelling Catheter Indwelling Catheter Indwelling Catheter ABP, PAP, CO, CI - Last Documented Arterial Blood Pressure 118/93 - Exam No acute distress, oriented 3, sitting at the bedside, on pressure support and CPAP. HEENT examination is grossly unremarkable. Neck supple. Full range of motion. No adenopathy thyromegaly or neck vein di stention. Midline tracheostomy tube noted in good position. Cardiovascular examination reveals regular rhythm rate. S1-S2 normal. No S3 or S4. No discernible murmur noted. Heart sounds are distant. Heart rate 56 bpm. Lungs reveal guarded bilateral rhonchi. Breath sounds equal bilaterally. No wheezes or crackles. Saturations 97%. Abdomen soft bowel sounds are heard. No masses or tenderness. PEG tube noted. Extremities are intact. No cyanosis clubbing or edema. Skin is without rash or lesion. Neurologic examination is brief but nonfocal. - Labs CBC & Chem 7: 02/04/21 05:00 02/04/21 05:00 Labs: Abnormal Lab Results - Last 24 Hours (Table) 02/03/21 02/03/21 02/04/21 Range/Units 18:01 23:39 05:00 RBC 3.53 L (4.30-5.90) m/uL Hgb 11.1 L (13.0-17.5) gm/dL Hct 33.7 L (39.0-53.0) % ABG pH (7.35-7.45) ABG HCO3 (21-25) mmol/L ABG Total CO2 (19-24) mmol/L ABG O2 Saturation (94-97) % Sodium (137-145) mmol/L BUN (9-20) mg/dL Glucose (74-99) mg/dL POC Glucose (mg/dL) 220 H 185 H (75-99) mg/dL 02/04/21 02/04/21 02/04/21 Range/Units 05:00 05:12 05:19 RBC (4.30-5.90) m/uL Hgb (13.0-17.5) gm/dL Hct (39.0-53.0) % ABG pH 7.52 H (7.35-7.45) ABG HCO3 30 H (21-25) mmol/L ABG Total CO2 31 H (19-24) mmol/L ABG O2 Saturation 97.6 H (94-97) % Sodium 135 L (137-145) mmol/L BUN 40 H (9-20) mg/dL Glucose 210 H (74-99) mg/dL POC Glucose (mg/dL) 211 H (75-99) mg/dL 02/04/21 02/04/21 Range/Units 06:57 11:46 RBC (4.30-5.90) m/uL Hgb (13.0-17.5) gm/dL Hct (39.0-53.0) % ABG pH (7.35-7.45) ABG HCO3 (21-25) mmol/L ABG Total CO2 (19-24) mmol/L ABG O2 Saturation (94-97) % Sodium (137-145) mmol/L BUN (9-20) mg/dL Glucose (74-99) mg/dL POC Glucose (mg/dL) 163 H 125 H (75-99) mg/dL Assessment and Plan Assessment: Acute hypoxemic respiratory failure secondary to coronavirus associated pneumonia, with intubation and mechanical ventilation, initiated on January 14, for worsening hypoxemia, and subsequent tracheostomy and PEG tube placement on January 23. Acute respiratory distress syndrome (ARDS), secondary to coronavirus associated pneumonia. Previous history of bilateral pulmonary emboli, and left leg DVT, 2016, currently on IV heparin empirically. Critical illness polyneuropathy. History of osteoarthritis. No prior history of tobacco use. Acute kidney injury, resolved. Plan: Plan dated 01/14/2021. Currently, the patient's on appropriate medication. I did tell the patient, that he may require intubation and mechanical ventilation. Currently, he looks so good despite being on BiPAP, the patient will try to ride it out a bit longer. Should he fatigue, or should his saturations drop, we will do an elective intubation and mechanical ventilation. Will likely need an art line and a central line. Labs are reviewed. Prognosis is guarded. We will continue to follow make recommendations where appropriate. Plan dated 01/15/2021. Yesterday, the patient developed worsening hypoxemic respiratory failure, and was intubated. The patient remains on vitamin C, vitamin D3, and zinc. In addition, the patient is being sedated with, and paralyzed with Nimbex. The patient is getting Dilaudid when necessary. The patient remains on IV heparin, and Decadron. The patient is also getting BASHIR. Obviously, the patient is very critically ill, and we will continue to follow the patient and make recommendations were appropriate. Prognosis is guarded. Plan dated 01/16/2021. The patient remains on the mechanical ventilator. We have been able to wean off the norepinephrine. Remains on propofol, and Nimbex. He is getting tube feeds at goal. The patient gets Lasix 40 mg IV push. We will attempt to prone the patient for 16 hours. The FiO2 was changed to 60%. We will continue to follow make recommendations where appropriate. Prognosis is guarded. In addition to vitamins, and Decadron, he remains on BASHIR. Plan dated 01/17/2021. The patient is not quite ready to come off the ventilator. He still requiring 6% FiO2, and PEEP of 15. The patient has shown some improvement since he was intubated a couple days ago. He remains on IV heparin, propofol, and paralysis with Nimbex. The patient was proned for 16 hours yesterday. His endotracheal tube may need to be changed. He remains on vital AF. We will continue to follow and make recommendations were appropriate. Prognosis is certainly guarded. He remains on vitamin C, vitamin D3, zinc, Decadron, and BASHIR. Plan dated 01/18/2021. The patient remains on the mechanical ventilator. He remains on heparin, propofol, Nimbex, and tube feeds. The patient's oxygenation has improved a bit, and once he hits an FiO2 of 50% or less, we will be able to start weaning down t he PEEP. Patient remains on vitamin C, vitamin D3, zinc, Decadron, and BASHIR. We will continue to follow make recommendations where appropriate. The patient remains on BASHIR. Plan dated 01/20/2021. The patient was seen by my nurse practitioner along with me yesterday. The patient remains on the mechanical breathing machine. He remains on heparin, propofol, Nimbex, and tube feeds. In addition, the patient is on vitamin C, vitamin D3, zinc, Decadron, and BASHIR. In my opinion, although last couple of days, the patient's chest x-ray has shown some improvement, and his oxygenation has improved. He is currently on 50% with PEEP of 15. We will continue to follow make recommendations were appropriate. Prognosis is guarded. Medications, x-rays, and labs are all reviewed. Plan dated 02/04/2021. The patient had a tracheostomy and PEG tube placement placed on January 23. Currently he is resting comfortably at bedside, on pressure support of 10 and CPAP of 5. He is receiving 45% FiO2. We are going to try to get him onto trach collar today. We'll DC the voriconazole and Zyvox. The patient continues on saline at KVO and tube feeds at goal of 50 mL an hour. Blood gases show pO2 of 87, pCO2 37, and a pH is 7.52. We will continue to follow and make recommendations where appropriate. Prognosis is still guarded. Time with Patient: Greater than 30
--- NOTE | 2021-02-04 14:15 | P.PN ---
Subjective Progress Note Date: 02/04/21 HISTORY OF PRESENT ILLNESS This is a 55-year-old male patient of Dr. 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 Patient states he has not been feeling well since Thursday. He said shortness of breath cough is nonproductive along with fever and chills, exertional dyspnea. He denies having any nausea vomiting or diarrhea. He denies any close contacts to known Covid people. He states his temperature is been up to 102.7 at home. He is not vaccinated. Patient presented to [facility] emergency center and found to be febrile at 101.1, heart rate 90, blood pressure 122/80, pulse ox 85% on room air. CBC revealed platelet count of 128. D-dimer 0.82. Sodium 131 otherwise electrolytes and renal function were normal. Blood sugar 147. Troponin negative. Coronavirus PCR positive. Chest x-ray reveals patchy bilateral airspace disease especially in the mid and lower lungs. Correlate for multifocal pneumonia including Covid 19 pneumonia. CTA of the chest was suboptimal study without central acute pulmonary embolism. Bilateral multifocal and confluent groundglass opacities right greater than left and greater in the lower lungs consistent with known Covid 19 infection. Patient is seen today in the emergency center waiting for bed on the [facility] floor, started on Remdesivir, Lovenox, dexamethasone and vitamin supplements, consult with pulmonary medicine. 01/12: Patient is comfortable, however he requires 40 L of oxygen via airvo sats 88-89%, he feels better today compared to his nonrebreather mask yesterday, patient did not sleep well, patient does not have any cough, however he does have shortness of breath. Patient denies any aspiration, appetite is still marginal, patient has insomnia vitals, blood sugar currently is 243, creatinine of 0.98, d-dimer is 0.84, CRP is elevated, LDH is elevated, venous Doppler, shows chronic DVT, left popliteal, in the posterior tibial veins, without any obstruction of flow. No acute DVT identified CTA, shows suboptimal, without central acute pulmonary emboli, has bilateral multifocal and confluent groundglass opacities, right greater than left, lower lobe, consistent with COVID-19 infection and remdesivir discontinued by pulmonary today and is outside of the window for remdesivir 01/13: Patient is on aerosol 14 L, with nonrebreather mask, 15 L, hypoxemia n oted on 88%, worse with coughing, however his nonrebreather mask is very loose. Nurse is worriedwith the turn of events, and requested an ICU transfer, Dr. Canales has seen the patient, and is stable for floor management at this time, patient is not significant tachypnea, and is not tiring out. There is no hemoptysis, and mucus is productive, patient's doing incentive spirometry, up 2 L. 01/14: Patient remains in the intensive care unit, he was intubated this morning as he was desaturating with BiPAP. He has been afebrile, heart rate 73, blood pressure 93/47, pulse ox 90%. CBC is unremarkable. D-dimer 12.04. Sodium 135, creatinine 0.82. LDH 2929, C-reactive protein 5.2. Sputum culture is in progress. He has had good urine output. Chest x-ray reveals no evident convocation from catheters. Bilateral airspace disease. 01/15: Patient remains in the intensive care intubated and on mechanical ventilation with tidal volume 450, FiO2 80, PEEP of 15. Patient has been started on norepinephrine and remains on propofol, heparin drip, Nimbex. Repeat blood work revealed unremarkable CBC. Creatinine 0.88. Capillary blood glucose running between 195 and 215. AST 126, ALT 183, alkaline phosphatase 109. Sputum culture is in progress. Repeat chest x-ray reveals correlate for pneumonia versus edema, ARDS. Patient is continued on vitamin supplements, heparin drip, dexamethasone and Baricitinib. patient remains in intensive care intubated on mechanical ventilator at FiO2 60 percent PEEP respiratory rate of 30 tidal volume 450. Continues to maintain saturations between 94-95% on the current settings. Vitals otherwise stable labs reviewed today WBC is 9.5 hemoglobin 12.4 d-dimer is elevated at 4.98. ABG obtained today suggest pH of 7.4 pO2 53 bicarb 26 on 50% FiO2. Creatinine stable at 0.78 glucose is maintained between 145-190. LDH 1564 CRP is elevated at 4. Patient's inflammatory markers trending down. Patient's vent settings increased to 80% for inadequate oxygenation. Chest x-ray reviewed showed bilateral infiltrate consistent with coronavirus associated pneumonia. Patient continues intubated on propofol 70 bike but patient examined Nimbex 1.25 g daily per minute. Patient to receive 1 dose of Lasix today. Continue to remain on baricitinib day 2 PAtient remains intubaated since . patient continues too remain on assist control, TV 450 , peep 15 and fio2 of 60 %. patient was proned for 16 hours yesterday. CXR was reviewed, COVID pneumonia but no significant change was noted, Will repeat inflammatory markers tomorrow. Vent managment per shop repairer. Patient contines to remain propofol , nimbex. Continue on lovenox, baricitinib, dexamethasone and vit supplement 01/18 patient continues to remain intubated. Covid pneumonia. Is currently on assist control respiratory rate of 30 tidal volume 450 FiO2 of 55% and PEEP of 15. She is currently on heparin drip, propofol and Nimbex. Patient continues to tolerate prone positioning 16 hours overnight. Continues to receive dexamethasone, vitamin supplement, anticoagulation with heparin, baricitinib. Labs are reviewed patient has a hemoglobin stable at 12.2. This morning pH 7.48 PCO2 44 bicarb 32 creatinine 0.73 AST 100 chest x-ray done this morning suggestive of ARDS and pneumonia 01/19 patient continues to remain intubated currently on assist-control vent with a rate of 30 tidal volume 450 FiO2 50 and PEEP of 15. Continues to remain on propofol and Nimbex. Continue heparin drip for anticoagulation. Remains on Baricitinib , vitamin supplementation and dexamethasone. Labs reviewed hemoglobin stable at 12 PTT 53 blood gas obtained today suggest a pH of 7.45 pCO2 46 pO2 69 bicarb 32 BUN 23 creatinine 0.0.8 glucose 122 AST ED ALT 226. inflammation markers ordered for tomorrow last set was obtained on 01/12 01/20 Intubated. Vitals reviewed patient's afebrile pulse of 68 respiratory rate 30 blood pressure. 94/56 oxygen 91% on 50% FiO2. Patient remains on assist control, tidal volume 450 respiratory rate 30 FiO2 of 50% and PEEP of 15. He is currently on Pneumovax at 3 mics per KG per minute propofol at 50 Micro-K to Coumadin and heparin drip. Patient labs are reviewed hemoglobin is 11.7. Arterial blood gas at 50% FiO2 has a pH of 7.47 pO2 of 77 bicarb of 31 BUN 24 creatinine 0.7 LDH [id number] CRP 8.70. CRP is slightly elevated with improvement in LDH. Continue to monitor patient with the goal with treatment on heparin, as dexamethasone, vitamin supplementation and Baricitinib . Blood sugar are well controlled. 01/21: Patient remains intubated and on mechanical ventilation with tidal volume 400, FiO2 40 and PEEP of 16. Patient is on propofol and fentanyl drips. He is on tube feedings to be increased to 26 ML's per hour and tolerating. She he has had 100 250 ML's of urine output per hour. He has been afebrile, heart rate 70, respiratory rate 30, blood pressure 115/64, pulse ox 93%. Repeat blood work reveals WBC 7.4, hemoglobin 12, platelet count 310. D-dimer 1.23. Sodium 134, BUN 24 and creatinine 0.73. Blood sugars are running between 101 and 164. AST 105, ALT 261, alkaline phosphatase 135. LDH 999. C-reactive protein 13.5. Albumin 2.9. Gallbladder ultrasound reveals nonspecific pattern of liver can be seen with hepatic steatitis or hepatocellular disease including hepatitis. The chest x-ray reveals bilateral patchy airspace disease stable. 01/22: Remains in the intensive care unit intubated and on mechanical ventilation with tidal volume 400, FiO2 40, PEEP of 13. Paralytics for pause this morning and patient had significant drop in his pulse ox. He is currently on propofol, fentanyl and Nimbex. He has been afebrile, heart rate 73, blood pressure 99/63, pulse ox 90%. Repeat blood work reveals hemoglobin 11.6. Creatinine 0.81. Blood sugars are running between 98 and 155. AST 85, ALT 260, alkaline phosphatase 132. LDH 954, C-reactive protein 6.8. Repeat chest x-ray reveals bilateral patchy diffuse airspace disease stable. Patient is continued on Baricitinib, Lovenox 40 mg subcu daily, dexamethasone 6 mg IV push and vitamin supplements 01/23: Remains in the intensive care unit on mechanical ventilation with tidal volume 400, FiO2 40 and PEEP of 10. Patient is scheduled for trach and PEG tube placement today. He is currently on propofol, fentanyl and Nimbex. Patient remains afebrile, heart rate 69, respiratory rate 30, blood pressure 120/76, pulse ox 93%. Repeat blood work reveals creatinine is 0.71. WBC 8.3, hemoglobin 12.9. AST 111, ALT 328, alkaline phosphatase 153. Blood sugars have been running between 92 and 193. Sputum culture is showing Corynebacterium species from 01/21 and Aspergillus from 01/14. Repeat chest x-ray reveals bilateral patchy diffuse airspace disease stable. Patient is continued on Baricitinib, Lovenox 40 mg subcu daily, dexamethasone 6 mg IV push and vitamin supplements 01/24: Patient is status post trach and PEG tube done yesterday by Dr. Olivares. Patient is off Nimbex and he has his eyes open but not following commands. Patient's is planning to come in today to see him. He remains on ventilator with tidal volume 300, FiO2 50 and PEEP of 10. Repeat chest x-ray reveals diffuse bilateral infiltrate stable. Antibiotics have been changed to ce fepime and patient started on IV Voriconazole. Patient is continued on dexamethasone, Lovenox and vitamin supplements. WBC 17.2, hemoglobin 12.3. Sodium 130, BUN 21 creatinine 0.83. Total bilirubin 2, AST 54, ALT 248, alkaline phosphatase 132. Capillary blood glucose running between 80 and 193. 01/25: Patient remains in the intensive care unit on mechanical ventilation with tidal volume 400, FiO2 is been increased to 100 and PEEP of 12. Patient is currently on propofol, and was started on vasopressors yesterday and is status post 2 L of IV fluid. Temperature max 101.3. Pulse 87, respiratory rate 33, blood pressure 120/57, pulse ox 95%. monitoring analyst is a sinus rhythm. Repeat blood work reveals WBC 8.3, hemoglobin 11. Sodium 136, chloride 108. Creatinine is 0.83. Calcium 7.9. Total bilirubin 2.7, AST 64, ALT 171, alkaline phosphatase 127. LDH 1187. C-reactive protein 32.6. Blood sugars are running between 133 and 173. Urine culture is showing gram-negative bacilli. Blood culture from 01/24 showing no growth at 24 hours. Repeat chest x-ray reveals clear to megaly with bilateral confluent mid to lower lung opacities consistent with: 19 infection redemonstrated. No significant change. Patient is currently on cefepime, Zyvox and there, so for worsening bilateral pulmonary infiltrate, pneumonia. 01/26: Patient remains in intensive care unit on mechanical ventilation with tidal volume 450, FiO2 80 and PEEP of 12. He has been afebrile for greater than 24 hours. Heart rate 80, blood pressure 132/70, pulse ox 86%. He does have leaking around the tracheostomy site. Repeat blood work reveals WBC 8, hemoglobin 11.1, platelet count 291. Sodium 135, potassium 5.8, creatinine 1.15. Total bilirubin 1.8, AST 101, ALT 194, alkaline phosphatase 135. LDH 1156. C-reactive protein 35.7. Blood sugars are running between 154 and 183. Patient will be started on Levemir 10 units at bedtime. He is continued on cef epime, Zyvox and voriconazole. 01/27: Patient remains intubated and on mechanical ventilation with tidal volume 400 50, FiO2 60, PEEP of 12. Plan is to try and wean oxygen down today. Tracheostomy tube has been manipulated and repositioned. He is not requiring vasopressors, currently on propofol. Chest x-ray reveals no significant interval change. Patient has had good urine output with BUN of 37 creatinine 1.28. Other lab work reveals WBC 9.8, hemoglobin 10.7. D-dimer 5.45. Total bilirubin 1.4, AST 153, ALT 282, alkaline phosphatase 138, LDH 1073. C-reactive protein 16.3. ProCalcitonin 10.1. 01/28: Remains in the intensive care unit, intubated and on mechanical ventilation with tidal volume 450, FiO2 of 60 and PEEP of 10. Patient is responsive, follows a few simple commands. He is currently on antibiotics in the form of cefepime, Zyvox and voriconazole. Patient is also continued on Decadron and Lovenox. Repeat blood work reveals WBC of 10, hemoglobin 10.5. D- dimer 5.63. C-reactive protein 6.2. LDH 1025. Total bilirubin 1.3, AST 95, ALT 250. Patient is on tube feedings at goal. He has had good urine output. Social work will start process for discharge to select specialty with anticipation of him being ready by the end of the week. 01/29 patient is currently in the ICU on with tracheostomy with tidal volume 450 FiO2 decreased to 55 this morning with PEEP of 10. Patient is responsive get agitated once propofol is discontinued. Patient is getting of diarrheal ordered every few hours to help with pain control. Currently stays on antibiotic in the form of cefepime, Zyvox and voriconazole. Urine output is appropriate in her on 75 200 mL per hour. Continues to remain on Decadron and Lovenox. He's currently off norepinephrine off Precedex is off fentanyl. Chest x-ray reviewed has bilateral interstitial infiltrate not changed. Labs reviewed, WBC 11.1 h emoglobin is 11.4 R blood gas this morning on 60% FiO2 suggest EF pO2 of 65 bicarb 26 blood sugar controlled ranging from 156-197. Ventilator management per pulmonary as reduce the FiO2 to 55 . Repeat blood gas in 24 hours. Patient initiating Seroquel 50 twice a day for agitation. Discussion with the nurse was made to reduce the Seroquel to 25 twice a day if patient appears to be sedated 01/30: Patient remains in intensive care unit, intubated status post tracheostomy and PEG tube placement. He is on tidal volume 450, FiO2 of 50 and PEEP is down to 10. He is able to follow some simple commands. Pulmonary medicine is planning to discontinue propofol and switched to Precedex. He is on tube feedings. Social work is following for possible discharge to [facility] by the end of the week. 01/31: Patient remains in the intensive care unit intubated and on mechanical ventilation status post PEG tube and trach. Tidal volume 450, FiO2 50 and PEEP of 10. Patient is on propofol. He is on PEG tube feedings at goal. Patient is continued on Lovenox, Decadron, supplements. Cefepime has been discontinued and he is continued on Zyvox and 4, his old. Social work is following closely for discharge planning however at this time, there are no facilities that will accept the patient. 02/01: Patient is out of Covid isolation. Patient remains on mechanical ventilation with tidal volume 450, FiO2 50, PEEP of 10. Patient is on propofol which is to be weaned off today. He still has Sim catheter with good urine output. Feedings are at goal. Patient has occasional cough, mild edema. Patient is refusing IV Dilaudid for pain. Bowel movements been soft but no diarrhea. Patient is afebrile, heart rate 68, respiratory rate 24, blood pressure 130/75, pulse ox 92%. 02/02: Patient is seen in ICU he is currently out of Covid isolation. Remains on mechanical ventilation with trach. Tidal volume 450, rate of 22 with a PEEP of 8 FiO2 of 50%. Patient is currently on propofol which will continue to be weaned today with the addition of Ativan. Sim catheter in place with good urine output. Feedings are at goal. Does have occasional cough, mild edema. 02/03: Patient is seen in ICU remains on mechanical ventilation with trach. Tidal volume 450 rate of 22 with a PEEP of 6 FiO2 of 45%. Patient is off of propofol. Discussion for transitioned to CPAP machine for today. Sim catheter in place with good urine output. Feedings are at goal. Patient does have occasional cough continues have mild edema. Patient is able to follow commands bilateral upper extremity strength equal. 02/04: Patient remains in the intensive care unit. He is currently on trach collar at 40% FiO2 with pulse ox of 97%. He is afebrile, heart rate in the 50s to 80s, blood pressure 105/69. Repeat blood work reveals WBC 9.9, hemoglobin 11.1, platelet count 230. Sodium 135, potassium 4.3, chloride 101, CO2 29, BUN 40 creatinine 0.96. Blood sugars are running between 125 and 211. Repeat chest x-ray reveals findings consistent with Covid pneumonia consider ARDS. Patient is now slowly progressing and his goal is to get home by [place]. REVIEW OF SYSTEMS. Constitutional: No fever, no chills, no night sweats. No weight change. Reports weakness, no fatigue or lethargy. No daytime sleepiness. EENT: No headache. No blurred vision or double vision, no loss of vision. No loss of Hearing, no ringing in the ears, no dizziness. No nasal drainage or congestion. No epistaxis. No sore throat. Lungs: No shortness of breath, noted cough, no sputum production. No wheezing. Cardiovascular: No chest pain, no lower extremity edema. No palpitations. No paroxysmal nocturnal dyspnea. No orthopnea. No lightheadedness or dizziness. No syncopal episodes. Abdominal: no abdominal discomfort. No nausea, vomiting. no diarrhea. No constipation. No bloody or tarry stools. no loss of appetite. Genitourinary: No dysuria, increased frequency, urgency. No urinary retention. Musculoskeletal: No myalgias. No muscle weakness, no gait dysfunction, no frequent falls. No back pain. No neck pain. Integumentary: No wounds, no lesions. No rash or pruritus. No unusual bruising. No change in hair or nails. Neurologic: No aphasia. No facial droop. No change in mentation. No head injury. No headache. No paralysis. No paresthesia. Psychiatric: No depression. No anxiety. No mood swings. Endocrine: No abnormal blood sugars. No weight change. No excessive sweating or thirst. PHYSICAL EXAMINATION Gen: This is a 55-year-old male. He is resting in ICU bed, on trach collar at 40% FiO2, status post trach and PEG, patient has significant coughing at this time of eval. HEENT: Head is atraumatic, normocephalic. Pupils equal, round. Sclerae is anicteric. Tracheostomy intact. NECK: Supple. No JVD. No lymphadenopathy. LUNGS: Crackles bilaterally. No accessory muscle usage. No intercostal retractions. HEART: Regular rate and rhythm. No murmur. ABDOMEN: Soft. Bowel sounds are present. No masses. No tenderness. PEG tube in place. EXTREMITIES: No pedal edema. No calf tenderness. NEUROLOGICAL: Patient is awake, and able to follow simple commands. ASSESSMENT AND PLAN 1. Acute hypoxic respiratory failure secondary to Covid 19 pneumonia and possible secondary pneumonia, gram-negative and fungal. Patient required intubation 01/14. Patient is status post trach and PEG tube placement 01/[address] Olivares. Patient started on Remdesivir was discontinued by pulmonary, on January 12/2021 started on baricinib 4 mg daily, Baricitinib discontinued on 01/24. Continue dexamethasone, Lovenox, and supplements. 2. Acute respiratory distress syndrome secondary to coronavirus pneumonia. 3. Acute septic shock requiring vasopressors. Patient is status post IV fluid bolus and off vasopressors. 4. History of bilateral pulmonary emboli and DVT in 2016. CTA negative for PE. Not on chronic anticoagulation. 5. Acute transaminitis secondary to Covid 19. 6. Generalized osteoarthritis. 7. Degenerative changes in the cervical spine status post fusion of C5-6. 8. 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 9. Elevated liver function tests, transaminitis. 10. Hyperglycemia secondary to steroids. Patient is on NovoLog scale, Levemir 10 units at bedtime added. 11. Severe hyperkalemia, resolved. 12. GI prophylaxis. Protonix. 13. DVT prophylaxis. Lovenox. 14. Acute agitation on ventilator area shop repairer has increased Seroquel to 100 mg twice daily by shop repairer. DISCHARGE PLAN TBD Impression and plan of care have been directed as dictated by the signing physician. Shakila Mosqueda nurse practitioner acting as scribe for signing physician. Objective - Vital Signs Vital signs: Vital Signs Temp 98.3 F 02/04/21 08:00 Pulse 63 02/04/21 10:00 Resp 29 H 02/04/21 10:00 BP 109/67 02/04/21 10:00 Pulse Ox 98 02/04/21 10:00 Intake & Output 02/03/21 02/04/21 02/04/21 18:59 06:59 18:59 Intake Total 1266 1256 236 Output Total 1370 1225 390 Balance -104 31 -154 Intake: IV 576 566 52 Linezolid 600 mg In 300 300 Dextrose/Water 1 300ml. bag @ 150 mls/hr IVPB Q12H [facility] Rx#:[id number] Pressure Bags 36 36 12 Sodium Chloride 0.9% 1, 240 130 40 000 ml @ 20 mls/hr IV . Q24H [facility] Rx#:[id number] Voriconazole 200 mg In 100 Sodium Chloride 0.9% 100 ml @ 125 mls/hr IVPB Q12HR [facility] Rx#:[id number] Tube Feeding 600 600 184 Other 90 90 Output: Urine 1370 1225 390 Other: Voiding Method Indwelling Catheter Indwelling Catheter Indwelling Catheter ABP, PAP, CO, CI - Last Documented Arterial Blood Pressure 118/93 - Labs CBC & Chem 7: 02/04/21 05:00 02/04/21 05:00 Labs: Abnormal Lab Results - Last 24 Hours (Table) 02/03/21 02/03/21 02/03/21 Range/Units 11:38 18:01 23:39 RBC (4.30-5.90) m/uL Hgb (13.0-17.5) gm/dL Hct (39.0-53.0) % ABG pH (7.35-7.45) ABG HCO3 (21-25) mmol/L ABG Total CO2 (19-24) mmol/L ABG O2 Saturation (94-97) % Sodium (137-145) mmol/L BUN (9-20) mg/dL Glucose (74-99) mg/dL POC Glucose (mg/dL) 172 H 220 H 185 H (75-99) mg/dL 02/04/21 02/04/21 02/04/21 Range/Units 05:00 05:00 05:12 RBC 3.53 L (4.30-5.90) m/uL Hgb 11.1 L (13.0-17.5) gm/dL Hct 33.7 L (39.0-53.0) % ABG pH 7.52 H (7.35-7.45) ABG HCO3 30 H (21-25) mmol/L ABG Total CO2 31 H (19-24) mmol/L ABG O2 Saturation 97.6 H (94-97) % Sodium 135 L (137-145) mmol/L BUN 40 H (9-20) mg/dL Glucose 210 H (74-99) mg/dL POC Glucose (mg/dL) (75-99) mg/dL 02/04/21 02/04/21 Range/Units 05:19 06:57 RBC (4.30-5.90) m/uL Hgb (13.0-17.5) gm/dL Hct (39.0-53.0) % ABG pH (7.35-7.45) ABG HCO3 (21-25) mmol/L ABG Total CO2 (19-24) mmol/L ABG O2 Saturation (94-97) % Sodium (137-145) mmol/L BUN (9-20) mg/dL Glucose (74-99) mg/dL POC Glucose (mg/dL) 211 H 163 H (75-99) mg/dL
[2021-02-04] MEDS: ACETAMINOPHEN TAB 325 MG TAB PO PRN (17:42)
[2021-02-04] MEDS: SODIUM CHLORIDE 0.9% 1,000 ML IV SCH (17:43)
[2021-02-04 17:56] LABS: Glucose,Whole Blood 197 mg/dL (75-99)
[2021-02-04] MEDS: INSULIN DETEMIR (LEVEMIR) 100 UNIT/ML SYR SQ SCH (20:37)
[2021-02-04] MEDS ORDERED: BUTALB/APAP/CAFF 50-325-40MG TAB PO PRN (20:52)
[2021-02-05 03:47] LABS: Basophils % (A) 0 %; Eosinophils # (A) 0.2 k/uL (0-0.7); Eosinophils % (A) 2 %; HGB 11.7 gm/dL (13.0-17.5); Lymphocytes # (A) 1.1 k/uL (1.0-4.8); Lymphocytes % (A) 10 %; MCH 30.1 pg (25.0-35.0); MCHC 31.5 g/dL (31.0-37.0); MCV 95.5 fL (80.0-100.0); Mean Platelet Volume 8.1; Monocytes # (A) 0.4 k/uL (0-1.0); Monocytes % (A) 4 %; Neutrophils # (A) 9.4 k/uL (1.3-7.7); Neutrophils % (A) 83 %; Platelet Count 218 k/uL (150-450); RBC 3.88 m/uL (4.30-5.90); RDW 13.3 % (11.5-15.5); WBC 11.2 k/uL (3.8-10.6)
[2021-02-05 03:52] LABS: African American GFR (CKD) >90 (>60 ml/min/1.73 sqM); Anion Gap 5 mmol/L; Blood Urea Nitrogen 38 mg/dL (9-20); Calcium 8.9 mg/dL (8.4-10.2); Carbon Dioxide 32 mmol/L (22-30); Chloride 99 mmol/L (98-107); Glucose 213 mg/dL (74-99); Non-African American GFR(CKD) 84 (>60 ml/min/1.73 sqM); Sodium 136 mmol/L (137-145)
[2021-02-05 05:44] LABS: Glucose,Whole Blood 168 mg/dL (75-99)
[2021-02-05] MEDS: INSULIN ASPART (NovoLOG) 100 UNIT/ML VIAL SQ SCH ×4 (06:04→18:02)
--- NOTE | 2021-02-05 08:25 | XR ---
EXAMINATION TYPE: XR chest 1V portable DATE OF EXAM: 02/05/2021 COMPARISON: Chest x-ray dated 02/04/2021 HISTORY: Covid pneumonia TECHNIQUE: Single frontal view of the chest is obtained. FINDINGS: Tracheostomy tube, right-sided PICC line again noted and are overlying appropriate positio ns, patient shows bilateral airspace disease in a similar appearance, lung volumes are low. There is no evident pneumothorax or pleural effusion. Cardiomediastinal silhouette is unchanged. There are ove rlying leads. IMPRESSION: Findings consistent with patient's history of pneumonia
[2021-02-05] MEDS: ZINC SULFATE 220 MG CAP PO SCH (08:32)
[2021-02-05] MEDS: ASCORBIC ACID 500 MG TAB PO SCH (08:32)
[2021-02-05] MEDS: CHLORHEXIDINE GLUCONATE 15 ML CUP MUCOUS MEM SCH ×2 (08:32→21:06)
[2021-02-05] MEDS: PANTOPRAZOLE 40 MG/10 ML VIAL IVP SCH (08:32)
[2021-02-05] MEDS: CHOLECALCIFEROL 25 MCG (1000 IU) TABLET PO SCH (08:32)
[2021-02-05] MEDS: DEXAMETHASONE SOD PHOSPHATE 10 MG/ML 1 ML VIAL IVP SCH (08:32)
[2021-02-05] MEDS: ENOXAPARIN 40 MG/0.4 ML SYRINGE SQ SCH (08:34)
[2021-02-05] MEDS: QUEtiapine 100 MG TAB PO SCH ×2 (08:34→21:06)
[2021-02-05] MEDS: SODIUM CHLORIDE 0.9% 1,000 ML IV SCH (08:34)
--- NOTE | 2021-02-05 09:24 | P.PN ---
Subjective Progress Note Date: 02/05/21 Principal diagnosis: Coronavirus associated pneumonia. COVID-19 pneumonia 55-year-old male patient of Dr. Palm, with a past medical history of bilateral pulmonary emboli, and left leg DVT, migraine headaches, hiatal hernia, inguinal hernias, osteoarthritis with previous history of right shoulder arthroscopy, cervical fusion, nonsmoker, who came into the emergency department on 01/11/2021 for evaluation of shortness of breath, fatigue, cough, fever. His symptoms started on Thursday01/11/2021 and became progressive. Patient is not vaccinated against COVID-19. Chest x-ray today shows patchy bilateral airspace disease especially in the mid and lower lungs. COVID-19 PCR was negative, his white count is 6.1, hemoglobin is 16.8, platelet count is 128, lymphocyte count is 0.9, d-dimer is 0.82, coagulation profile was within normal limits, sodium is 131, the rest of electrolytes are within normal limits, troponin was less than 0.012, LFTs were within normal limits, lactic acid was 1.1. CT angiogram of the chest showed suboptimal study without central acute pulmonary embolism, and bilateral multifocal and confluent groundglass opacities right greater than left and greater in the lower lungs consistent with history of COVID-19 infection. Pulse ox was 85%, patient was febrile on presentation with a temp of 101.1F, he was placed on 3 L of supplemental oxygen, he is awake and alert, does not appear to be in any acute distress, he is ambulating, and does have exertional dyspnea but no acute distress. He was started on Decadron 10 mg IV push 1, prophyla ctic Lovenox, and multivitamins The patient is seen today 01/12/2021 in follow-up on the regular medical floor. He is currently sitting up in a chair at the bedside. His oxygen requirements to go up. He is currently on a 15 L nonrebreather mask with O2 saturation 91%. He was on 4 L yesterday. He is having more shortness of breath. 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 D-dimer 0.84. LDH 684. C-reactive protein 7.0. He is on day #2 of Remdesivir. He remains on Decadron, Lovenox, vitamin supplements. 0.9 normal saline at 130 ML's per hour. The patient is seen today 01/13/2021 in follow-up on the regular medical floor. He is currently sitting up in a chair at the bedside. Awake and alert. He did have some issues with worsening shortness of breath on minimal exertion. He is on the AirVo high flow oxygen at 4 L and 90% FiO2 plus a nonrebreather mask to maintain O2 saturations in the high 80s and low 90s. He's been afebrile. Hemodynamically stable. White count 8.8. Hemoglobin 13.9. Lymphocytes 0.9. Sodium 137. Potassium 4.1. Creatinine 0.4. He is continued on Baricitinib, Decadron, Lovenox, vitamin supplements. Progress note dated 01/14/2021. This morning, the patient was on BiPAP, with settings of 14/6 and 100%. He change IPAP of 14-16. The patient's getting saline at 130 mL an hour, and Precedex at 0.4 mcg/kg/h. I did speak to the patient about the possibility of intubation and mechanical ventilation. The patient was also placed on IV heparin, given his prior history of DVT and pulmonary embolism. White count 7.4, hemoglobin 14.4, hematocrit 43.8, platelet count 165,000. D-dimer was 12.04. Sodium 135, potassium 4.7, chlorides 107, CO2 23, anion gap 5, BUN 24, and creatinine 0.82. LDH was 2929. C-reactive protein was 5.2. The patient's chest x-ray shows diffuse bilateral infiltrates. This patient was admitted to the hospital on January 11, and moved to the intensive care unit on January 13 for worsening hypoxemic respiratory failure. Progress note dated 01/15/2021. Yesterday, the patient was intubated and mechanically ventilated, after developing worsening hypoxemic respiratory failure. A central line was placed, as well as an art line. The patient remains on mechanical ventilator. Currently, he's on the volume assist control mode, rate 26, tidal volume 450, FiO2 100%, and PEEP of 15. Arterial blood gases show a PaO2 of 129, pCO2 58, and a pH is 7.24. With that, the rate is increased to 30 breaths per minute, and the FiO2 was reduced down to 80%. The patient remains on propofol, at 50 mcg/kg/m, Nimbex, at 2 mcg/kg/m, and norepinephrine at 0.03 mcg/kg/m. The patient's also getting saline at 130 mL an hour, IV heparin, and vital, at 23 mL an hour, which is goal. White count 9.5, hemoglobin 13.4, hematocrit 42.3, and platelet count 205,000. PTT is 119. Sodium 140, potassium 4.9, chlorides 111, CO2 25, anion gap 4, BUN 20, creatinine 0.88. The patient's albumin was 2.7. AST was 126 with an ALT of 183. The patient's chest x-ray is consistent with d iffuse bilateral infiltrates, consistent with coronavirus associated pneumonia, and acute respiratory distress syndrome. Progress note dated 01/16/2021. 55-year-old male, with coronavirus associated pneumonia. The patient was intubated and mechanically ventilated on January 14 for worsening hypoxemic respiratory failure. He remains on the ventilator. The patient is on the volume assist control mode, rate 30, tidal volume 450, FiO2 80%, PEEP of 15. Arterial blood gases show pO2 of 53, pCO2 43, and a pH is 7.39. Those blood gases were done on 50%, and subsequent currently, he was increased up to 80%. I've reduced him back down to 60%. In addition, the patient's getting saline at 130 mL an hour, which will be reduced down to KVO, heparin, via weightbase protocol, propofol, at 70 mcg/kg/m, Nimbex at 1.25 mcg/kg/m vital 1.2 at 23 mL an hour, which is goal, and norepinephrine, which is been weaned off recently. White count 9.5, hemoglobin 12.4, hematocrit 38.5, platelet count 199,000. PTT is 40.9, d-dimer is 4.98. Electrolytes, for some reason were not drawn. Chest x-ray shows diffuse bilateral infiltrates, consistent with coronavirus associated pneumonia. Progress note dated 01/17/2021. 55-year-old male, with coronavirus pneumonia. The patient was intubated and mechanically ventilated on January 14 for worsening hypoxemic respiratory failure. The patient remains on mechanical ventilator. He is on the volume assist control mode, rate 30, tidal volume 450, FiO2 60%, and PEEP of 15. Blood gases show a PaO2 of 79, CO2 53, and pH 7.35. The patient remains on Nimbex at 2.25 mcg/kg/m, a fall at 70 mcg/kg/m, heparin via weightbase protocol, saline at 20 mL an hour, and vital AF at 14, which is goal. The patient was prolonged for 16 hours yesterday. The patient does have a cuff leak on its endotracheal tube. We'll have anesthesia take a look at it. The 2 may need to be replaced. White count 9.2, he will been 12.6, hematocrit 37.3, and platelet count 340,000. PTT is 48.4. Sodium 135, potassium 4.1, chlorides 104, CO2 27, anion gap 4, BUN 20, with a creatinine 0.73. Albumin is 2.5. Chest x-ray shows diffuse bilateral infiltrates consistent with coronavirus pneumonia. Progress note dated 01/18/2021. 55-year-old male, with coronavirus pneumonia. The patient was placed on the mechanical ventilator on January 14, for worsening hypoxemic respiratory failure. He remains on the ventilator. The patient is on the volume assist control mode, rate 30, tidal volume 450, FiO2 55%, and PEEP 15. Blood gases show pO2 of 88, pCO2 of 44, and a pH is 7.48. These blood gases were done actually on 60%. The patient remains on heparin via weightbase protocol, propofol at 70 mcg/kg/m, Nimbex at 2.25 mcg/kg/m, vital AF at 14 mL an hour which is goal. The patient was proned again for 16 hours. White count 7.7, hemoglobin 12.2, hematocrit 36.6, and platelet count 2 49,000. Sodium 138, potassium 4, chlorides 103, CO2 31, anion gap 4, BUN 20, and creatinine 0.73. Chest x-ray shows diffuse bilateral infiltrates, consistent with acute respiratory distress syndrome. Progress note dated 01/20/2021. 55-year-old male, admitted with a diagnosis of coronavirus associated pneumonia. The patient is again seen in room 254. He remains on the mechanical ventilator. He is on the volume assist control mode, rate 30, tidal volume 450, FiO2 50%, PEEP of 5. Arterial blood gases show a PaO2 of 77, PaCO2 42, and a pH is 7.47. The patient remains on Nimbex at 3 mcg/kg/m, propofol at 50 mcg/kg/m, heparin via weightbase protocol, and vital AF at 14 mL an hour, which is goal. Current labs include a white count of 8, hemoglobin 11.7, hematocrit 34.9, and a platelet count of 292,000. PTT is 44.2. Sodium 137, potassium 4, chlorides 103, CO2 28, anion gap 6, BUN 24, and creatinine 0.73. AST is 118 with an ALT of 243. LDH is 1228. C-reactive protein is 8.7. Chest x-ray continues to show bilateral airspace disease, which is essentially unchanged. Reevaluated today on 01/31/2021, patient remains in the ICU, intubated and mechanically ventilated. He is on assist control rate of 22, volume control +450 FiO2 50% PEEP is at 10. ABG showed a pO2 of 58 pCO2 of 38 pH of 7.46. Patient is still requiring propofol, he could not tolerate switching propofol to Precedex as he became extremely agitated and restless tachypneic and tachycardic, hence he was placed back on propofol at 60 mcg/kg/m. Chest x-ray continues to show bilateral infiltrates. Improved compared to his initial baseline chest x-ray. CBC is relatively unremarkable electrolytes are unremarkable. Renal profile is normal. Patient remains on enteral feeding via PEG tube. Remains on the COVID-19 cocktail, remains on Decadron. Remains on Lovenox 40 mg subcu daily. He is on Dilaudid when necessary. Remains on Protonix, Seroquel was added a few days ago, and I will likely increase the dose. Patient is still on Zyvox and he is on voriconazole. Patient is off cefepime. Reevaluated today on 02/01/2021, patient remains in the ICU, intubated and mechanically ventilated, continues to have tracheostomy in place, and seems to be intact. Patient is awake, maintain on propofol at 40 mcg/kg/m, however I have instructed the nursing staff today to cut down the propofol and hopefully discontinued if possible as long as the patient remains calm and not agitated. We have tried in the past titrating propofol and with dried Precedex on this patient, and nothing seems to help, however I went ahead and increased his dose of Seroquel. Hoping we could get the patient off propofol. Patient is on volume control +450 rate of 22 of 10 FiO2 50%. ABG is marginal with a pO2 of 63 pCO2 of 40 pH of 7.43. WBC count 9.2 hemoglobin 10.4 electrodes are normal renal profile is normal. Chest x-ray continues to show bilateral infiltrates, not much of a change noted. Medications lund, patient remains on Decadron 6 mg IV push twice a day, he is on Lovenox 40 mg subcu daily, lactulose, Zyvox, voriconazole, Seroquel 100 twice a day, Protonix 40 mg IV push daily, he is not requiring any pressors, and he is off cefepime. Reevaluated today on 02/02/2021, patient is basically about the same. Remains intubated and mechanically ventilated. Remains on propofol at 30 mcg/kg/m, not requiring any other sedation medication, patient had poor tolerance to Precedex. Today I recommended a trial of Ativan 1 mg IV push every 4 hours when necessary, hoping we can taper down and possibly discontinue propofol altogether. Patient is hemodynamically stable, not requiring any pressors. Remains on assist control rate of 22 volume control plus of 450 FiO2 50% remains on antibiotics and antifungal. Remains on Protonix for GI prophylaxis. And he is off cefepime. ABG today showed a pO2 of 75 pCO2 of 42 pH of 7.47. WBC count is 9.4 hemoglobin 11.6. Electrolytes and renal profile are normal. Patient remains on the COVID-19 cocktail. Lovenox 40 mg subcu daily. He remain s on Zyvox. Remains on ascorbic acid. And on zinc. Patient is also on vitamin D Reevaluated today on 02/03/2021, patient remains in the ICU, intubated and mechanically ventilated. Finally the patient is off propofol, he is on Ativan when necessary, he is also on Seroquel, and overall I believe the patient is making a significant improvement in his intermittent episodes of agitations, and his requirement for sedation. Today I reviewed his ventilator settings and he is on assist control rate of 22 tidal volume 450 FiO2 50% PEEP of 6. His chest x-ray continues to show some bibasilar infiltrates bilaterally. Minimal improvement compared to his baseline. ABG showed a pO2 of 67 pCO2 43 pH of 7.47 hence I recommended that that the patient goes on a trial of weaning with a pressure support of 10 and CPAP. WBC count is 9.2 hemoglobin is 10.9. Medication list was reviewed, patient is on vitamin C, Peridex, vitamin D, Decadron 6 mg IV push twice a day, Lovenox 40 mg subcu daily, Dilaudid when necessary, Ativan when necessary, Zyvox 600 mg IV to 12 hours, Protonix 40 mg IV push daily Seroquel 100 mg by mouth twice a day voriconazole, and zinc. Progress note dated 02/04/2021. 55-year-old male, seen in room 251. The patient was admitted on January 11. He came in with woodruff virus associated pneumonia. He came to the intensive care unit on January 13, and was intubated on the . The patient underwent tracheostomy and PEG tube placement on January 23. Currently, he sitting at the bedside. He is on pressure support of 10 and CPAP of 5 and 45%. He's been on that for 24 hours. He looks very comfortable. I told respiratory therapist that we could try to transition him to a trach collar. The patient is receiving saline at KVO. He is getting vital AF at 50 mL an hour, which is goal. The patient is on multiple antibiotics including voriconazole and Zyvox, neither of which needs to be continued. Blood gases showed a pO2 of 87, pCO2 of 37, and a pH is 7.52. White count 9.9, hemoglobin 11.1, hematocrit 33.7, platelet count 230,000. Sodium 135, potassium 4.3, chlorides 101, CO2 29, anion gap 5, BUN 40, creatinine 0.96. Chest x-ray shows diffuse bilateral infiltrates consistent with coronavirus pneumonia and/or ARDS. Progress note dated 02/05/2021. 55-year-old male, again seen in room 251. The patient was admitted on January 11. He was admitted with a diagnosis of coronavirus associated pneumonia. He came to the intensive care unit on January 13, and was intubated for respiratory failure on the . The patient underwent tracheostomy and PEG tube placement on January 23. Since yesterday, at 10 AM, he's been on 40% trach collar. He seems to be doing relatively well. He is not receiving any IV fluids. He is getting vital AF at 50 mL an hour, which is goal. If E stable tomorrow, he can move out of the intensive care unit. Currently, white count is 11.2, hemoglobin 11.7, hematocrit 37, and platelet count 318,000. Sodium 136, p otassium 5, chlorides 99, CO2 32, anion gap 5, BUN 38, creatinine 1. Chest x- rays consistent with diffuse bilateral infiltrates, and is essentially unchanged. Objective - Vital Signs Vital signs: Vital Signs Temp 98.9 F 02/05/21 08:00 Pulse 67 02/05/21 09:00 Resp 21 02/05/21 09:00 BP 97/63 02/05/21 09:00 Pulse Ox 89 L 02/05/21 09:00 Intake & Output 02/04/21 02/05/21 02/05/21 18:59 06:59 18:59 Intake Total 930 783 50 Output Total 1570 1470 150 Balance -640 -687 -100 Weight 97.2 kg Intake: IV 156 93 Pressure Bags 36 3 Sodium Chloride 0.9% 1, 120 90 000 ml @ 20 mls/hr IV . Q24H ON LICENSE OF [facility] Rx#:[id number] Tube Feeding 584 600 50 Other 190 90 Output: Urine 1570 1470 150 Other: Voiding Method Indwelling Catheter Indwelling Catheter Indwelling Catheter ABP, PAP, CO, CI - Last Documented Arterial Blood Pressure 118/93 - Exam No acute distress, oriented 3, laying in the bed, on trach collar. HEENT examination is grossly unremarkable. Neck supple. Full range of motion. No adenopathy thyromegaly or neck vein distention. Midline tracheostomy tube noted in good position. Cardiovascular examination reveals regular rhythm rate. S1-S2 normal. No S3 or S4. No discernible murmur noted. Heart sounds are distant. Heart rate 67 bpm. Lungs reveal guarded bilateral rhonchi. Breath sounds equal bilaterally. No wheezes or crackles. Saturations 95%. Abdomen soft bowel sounds are heard. No masses or tenderness. PEG tube noted. Extremities are intact. No cyanosis clubbing or edema. Skin is without rash or lesion. Neurologic examination is brief but nonfocal. - Labs CBC & Chem 7: 02/05/21 02:52 02/05/21 02:52 Labs: Abnormal Lab Results - Last 24 Hours (Table) 02/04/21 02/04/21 02/05/21 Range/Units 11:46 17:55 02:52 WBC 11.2 H (3.8-10.6) k/uL RBC 3.88 L (4.30-5.90) m/uL Hgb 11.7 L (13.0-17.5) gm/dL Hct 37.0 L (39.0-53.0) % Neutrophils # 9.4 H (1.3-7.7) k/uL Sodium (137-145) mmol/L Carbon Dioxide (22-30) mmol/L BUN (9-20) mg/dL Glucose (74-99) mg/dL POC Glucose (mg/dL) 125 H 197 H (75-99) mg/dL 02/05/21 02/05/21 Range/Units 02:52 05:42 WBC (3.8-10.6) k/uL RBC (4.30-5.90) m/uL Hgb (13.0-17.5) gm/dL Hct (39.0-53.0) % Neutrophils # (1.3-7.7) k/uL Sodium 136 L (137-145) mmol/L Carbon Dioxide 32 H (22-30) mmol/L BUN 38 H (9-20) mg/dL Glucose 213 H (74-99) mg/dL POC Glucose (mg/dL) 168 H (75-99) mg/dL Assessment and Plan Assessment: Acute hypoxemic respiratory failure secondary to coronavirus associated pneumonia, with intubation and mechanical ventilation, initiated on January 14, for worsening hypoxemia, and subsequent tracheostomy and PEG tube placement on January 23, 2021. Acute respiratory distress syndrome (ARDS), secondary to coronavirus associated pneumonia. Previous history of bilateral pulmonary emboli, and left leg DVT, 2016, currently on IV heparin empirically. Critical illness polyneuropathy. History of osteoarthritis. No prior history of tobacco use. Acute kidney injury, resolved. Plan: Plan dated 01/14/2021. Currently, the patient's on appropriate medication. I did tell the patient, that he may require intubation and mechanical ventilation. Currently, he looks so good despite being on BiPAP, the patient will try to ride it out a bit longer. Should he fatigue, or should his saturations drop, we will do an elective intubation and mechanical ventilation. Will likely need an art line and a central line. Labs are reviewed. Prognosis is guarded. We will continue to follow make recommendations where appropriate. Plan dated 01/15/2021. Yesterday, the patient developed worsening hypoxemic respiratory failure, and was intubated. The patient remains on vitamin C, vitamin D3, and zinc. In ad dition, the patient is being sedated with, and paralyzed with Nimbex. The patient is getting Dilaudid when necessary. The patient remains on IV heparin, and Decadron. The patient is also getting BASHIR. Obviously, the patient is very critically ill, and we will continue to follow the patient and make recommendations were appropriate. Prognosis is guarded. Plan dated 01/16/2021. The patient remains on the mechanical ventilator. We have been able to wean off the norepinephrine. Remains on propofol, and Nimbex. He is getting tube feeds at goal. The patient gets Lasix 40 mg IV push. We will attempt to prone the patient for 16 hours. The FiO2 was changed to 60%. We will continue to follow make recommendations where appropriate. Prognosis is guarded. In addition to vitamins, and Decadron, he remains on BASHIR. Plan dated 01/17/2021. The patient is not quite ready to come off the ventilator. He still requiring 6% FiO2, and PEEP of 15. The patient has shown some improvement since he was intubated a couple days ago. He remains on IV heparin, propofol, and paralysis with Nimbex. The patient was proned for 16 hours yesterday. His endotracheal tube may need to be changed. He remains on vital AF. We will continue to follow and make recommendations were appropriate. Prognosis is certainly guarded. He remains on vitamin C, vitamin D3, zinc, Decadron, and BASHIR. Plan dated 01/18/2021. The patient remains on the mechanical ventilator. He remains on heparin, propofol, Nimbex, and tube feeds. The patient's oxygenation has improved a bit, and once he hits an FiO2 of 50% or less, we will be able to start weaning down the PEEP. Patient remains on vitamin C, vitamin D3, zinc, Decadron, and BASHIR. We will continue to follow make recommendations where appropriate. The patient remains on BASHIR. Plan dated 01/20/2021. The patient was seen by my nurse practitioner along with me yesterday. The patient remains on the mechanical breathing machine. He remains on heparin, propofol, Nimbex, and tube feeds. In addition, the patient is on vitamin C, vitamin D3, zinc, Decadron, and BASHIR. In my opinion, although last couple of days, the patient's chest x-ray has shown some improvement, and his oxygenation has improved. He is currently on 50% with PEEP of 15. We will continue to follow make recommendations were appropriate. Prognosis is guarded. Medications, x-rays, and labs are all reviewed. Plan dated 02/04/2021. The patient had a tracheostomy and PEG tube placement placed on January 23. Currently he is resting comfortably at bedside, on pressure support of 10 and CPAP of 5. He is receiving 45% FiO2. We are going to try to get him onto trach collar today. We'll DC the voriconazole and Zyvox. The patient continues on saline at KVO and tube feeds at goal of 50 mL an hour. Blood gases show pO2 of 87, pCO2 37, and a pH is 7.52. We will continue to follow and make recommendations where appropriate. Prognosis is still guarded. Plan dated 02/05/2021. The patient has been on trach collar since 10:00 yesterday. He is doing very well. The patient is not receiving any IV fluids. The patient remains on vitamin C, vitamin D3, and zinc. In addition, the patient is on Lovenox and Decadron. Additional recommendations and suggestions are forthcoming. Prognosis is guarded. I will cut back on the Decadron to once a day. Time with Patient: Greater than 30
--- NOTE | 2021-02-05 12:23 | P.PN ---
Subjective Progress Note Date: 02/05/21 HISTORY OF PRESENT ILLNESS This is a 55-year-old male patient of Dr. 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 Patient states he has not been feeling well since Thursday. He said shortness of breath cough is nonproductive along with fever and chills, exertional dyspnea. He denies having any nausea vomiting or diarrhea. He denies any close contacts to known Covid people. He states his temperature is been up to 102.7 at home. He is not vaccinated. Patient presented to [facility] emergency center and found to be febrile at 101.1, heart rate 90, blood pressure 122/80, pulse ox 85% on room air. CBC revealed platelet count of 128. D-dimer 0.82. Sodium 131 otherwise electrolytes and renal function were normal. Blood sugar 147. Troponin negative. Coronavirus PCR positive. Chest x-ray reveals patchy bilateral airspace disease especially in the mid and lower lungs. Correlate for multifocal pneumonia including Covid 19 pneumonia. CTA of the chest was suboptimal study without central acute pulmonary embolism. Bilateral multifocal and confluent groundglass opacities right greater than left and greater in the lower lungs consistent with known Covid 19 infection. Patient is seen today in the emergency center waiting for bed on the [facility] floor, started on Remdesivir, Lovenox, dexamethasone and vitamin supplements, consult with pulmonary medicine. 01/12: Patient is comfortable, however he requires 40 L of oxygen via airvo sats 88-89%, he feels better today compared to his nonrebreather mask yesterday, patient did not sleep well, patient does not have any cough, however he does have shortness of breath. Patient denies any aspiration, appetite is still marginal, patient has insomnia vitals, blood sugar currently is 243, creatinine of 0.98, d-dimer is 0.84, CRP is elevated, LDH is elevated, venous Doppler, shows chronic DVT, left popliteal, in the posterior tibial veins, without any obstruction of flow. No acute DVT identified CTA, shows suboptimal, without central acute pulmonary emboli, has bilateral multifocal and confluent groundglass opacities, right greater than left, lower lobe, consistent with COVID-19 infection and remdesivir discontinued by pulmonary today and is outside of the window for remdesivir 01/13: Patient is on aerosol 14 L, with nonrebreather mask, 15 L, hypoxemia n oted on 88%, worse with coughing, however his nonrebreather mask is very loose. Nurse is worriedwith the turn of events, and requested an ICU transfer, Dr. Canales has seen the patient, and is stable for floor management at this time, patient is not significant tachypnea, and is not tiring out. There is no hemoptysis, and mucus is productive, patient's doing incentive spirometry, up 2 L. 01/14: Patient remains in the intensive care unit, he was intubated this morning as he was desaturating with BiPAP. He has been afebrile, heart rate 73, blood pressure 93/47, pulse ox 90%. CBC is unremarkable. D-dimer 12.04. Sodium 135, creatinine 0.82. LDH 2929, C-reactive protein 5.2. Sputum culture is in progress. He has had good urine output. Chest x-ray reveals no evident convocation from catheters. Bilateral airspace disease. 01/15: Patient remains in the intensive care intubated and on mechanical ventilation with tidal volume 450, FiO2 80, PEEP of 15. Patient has been started on norepinephrine and remains on propofol, heparin drip, Nimbex. Repeat blood work revealed unremarkable CBC. Creatinine 0.88. Capillary blood glucose running between 195 and 215. AST 126, ALT 183, alkaline phosphatase 109. Sputum culture is in progress. Repeat chest x-ray reveals correlate for pneumonia versus edema, ARDS. Patient is continued on vitamin supplements, heparin drip, dexamethasone and Baricitinib. patient remains in intensive care intubated on mechanical ventilator at FiO2 60 percent PEEP respiratory rate of 30 tidal volume 450. Continues to maintain saturations between 94-95% on the current settings. Vitals otherwise stable labs reviewed today WBC is 9.5 hemoglobin 12.4 d-dimer is elevated at 4.98. ABG obtained today suggest pH of 7.4 pO2 53 bicarb 26 on 50% FiO2. Creatinine stable at 0.78 glucose is maintained between 145-190. LDH 1564 CRP is elevated at 4. Patient's inflammatory markers trending down. Patient's vent settings increased to 80% for inadequate oxygenation. Chest x-ray reviewed showed bilateral infiltrate consistent with coronavirus associated pneumonia. Patient continues intubated on propofol 70 bike but patient examined Nimbex 1.25 g daily per minute. Patient to receive 1 dose of Lasix today. Continue to remain on baricitinib day 2 PAtient remains intubaated since . patient continues too remain on assist control, TV 450 , peep 15 and fio2 of 60 %. patient was proned for 16 hours yesterday. CXR was reviewed, COVID pneumonia but no significant change was noted, Will repeat inflammatory markers tomorrow. Vent managment per superintendent distribution. Patient contines to remain propofol , nimbex. Continue on lovenox, baricitinib, dexamethasone and vit supplement 01/18 patient continues to remain intubated. Covid pneumonia. Is currently on assist control respiratory rate of 30 tidal volume 450 FiO2 of 55% and PEEP of 15. She is currently on heparin drip, propofol and Nimbex. Patient continues to tolerate prone positioning 16 hours overnight. Continues to receive dexamethasone, vitamin supplement, anticoagulation with heparin, baricitinib. Labs are reviewed patient has a hemoglobin stable at 12.2. This morning pH 7.48 PCO2 44 bicarb 32 creatinine 0.73 AST 100 chest x-ray done this morning suggestive of ARDS and pneumonia 01/19 patient continues to remain intubated currently on assist-control vent with a rate of 30 tidal volume 450 FiO2 50 and PEEP of 15. Continues to remain on propofol and Nimbex. Continue heparin drip for anticoagulation. Remains on Baricitinib , vitamin supplementation and dexamethasone. Labs reviewed hemoglobin stable at 12 PTT 53 blood gas obtained today suggest a pH of 7.45 pCO2 46 pO2 69 bicarb 32 BUN 23 creatinine 0.0.8 glucose 122 AST ED ALT 226. inflammation markers ordered for tomorrow last set was obtained on 01/12 01/20 Intubated. Vitals reviewed patient's afebrile pulse of 68 respiratory rate 30 blood pressure. 94/56 oxygen 91% on 50% FiO2. Patient remains on assist control, tidal volume 450 respiratory rate 30 FiO2 of 50% and PEEP of 15. He is currently on Pneumovax at 3 mics per KG per minute propofol at 50 Micro-K to Coumadin and heparin drip. Patient labs are reviewed hemoglobin is 11.7. Arterial blood gas at 50% FiO2 has a pH of 7.47 pO2 of 77 bicarb of 31 BUN 24 creatinine 0.7 LDH [id number] CRP 8.70. CRP is slightly elevated with improvement in LDH. Continue to monitor patient with the goal with treatment on heparin, as dexamethasone, vitamin supplementation and Baricitinib . Blood sugar are well controlled. 01/21: Patient remains intubated and on mechanical ventilation with tidal volume 400, FiO2 40 and PEEP of 16. Patient is on propofol and fentanyl drips. He is on tube feedings to be increased to 26 ML's per hour and tolerating. She he has had 100 250 ML's of urine output per hour. He has been afebrile, heart rate 70, respiratory rate 30, blood pressure 115/64, pulse ox 93%. Repeat blood work reveals WBC 7.4, hemoglobin 12, platelet count 310. D-dimer 1.23. Sodium 134, BUN 24 and creatinine 0.73. Blood sugars are running between 101 and 164. AST 105, ALT 261, alkaline phosphatase 135. LDH 999. C-reactive protein 13.5. Albumin 2.9. Gallbladder ultrasound reveals nonspecific pattern of liver can be seen with hepatic steatitis or hepatocellular disease including hepatitis. The chest x-ray reveals bilateral patchy airspace disease stable. 01/22: Remains in the intensive care unit intubated and on mechanical ventilation with tidal volume 400, FiO2 40, PEEP of 13. Paralytics for pause this morning and patient had significant drop in his pulse ox. He is currently on propofol, fentanyl and Nimbex. He has been afebrile, heart rate 73, blood pressure 99/63, pulse ox 90%. Repeat blood work reveals hemoglobin 11.6. Creatinine 0.81. Blood sugars are running between 98 and 155. AST 85, ALT 260, alkaline phosphatase 132. LDH 954, C-reactive protein 6.8. Repeat chest x-ray reveals bilateral patchy diffuse airspace disease stable. Patient is continued on Baricitinib, Lovenox 40 mg subcu daily, dexamethasone 6 mg IV push and vitamin supplements 01/23: Remains in the intensive care unit on mechanical ventilation with tidal volume 400, FiO2 40 and PEEP of 10. Patient is scheduled for trach and PEG tube placement today. He is currently on propofol, fentanyl and Nimbex. Patient remains afebrile, heart rate 69, respiratory rate 30, blood pressure 120/76, pulse ox 93%. Repeat blood work reveals creatinine is 0.71. WBC 8.3, hemoglobin 12.9. AST 111, ALT 328, alkaline phosphatase 153. Blood sugars have been running between 92 and 193. Sputum culture is showing Corynebacterium species from 01/21 and Aspergillus from 01/14. Repeat chest x-ray reveals bilateral patchy diffuse airspace disease stable. Patient is continued on Baricitinib, Lovenox 40 mg subcu daily, dexamethasone 6 mg IV push and vitamin supplements 01/24: Patient is status post trach and PEG tube done yesterday by Dr. Olivares. Patient is off Nimbex and he has his eyes open but not following commands. Patient's is planning to come in today to see him. He remains on ventilator with tidal volume 300, FiO2 50 and PEEP of 10. Repeat chest x-ray reveals diffuse bilateral infiltrate stable. Antibiotics have been changed to ce fepime and patient started on IV Voriconazole. Patient is continued on dexamethasone, Lovenox and vitamin supplements. WBC 17.2, hemoglobin 12.3. Sodium 130, BUN 21 creatinine 0.83. Total bilirubin 2, AST 54, ALT 248, alkaline phosphatase 132. Capillary blood glucose running between 80 and 193. 01/25: Patient remains in the intensive care unit on mechanical ventilation with tidal volume 400, FiO2 is been increased to 100 and PEEP of 12. Patient is currently on propofol, and was started on vasopressors yesterday and is status post 2 L of IV fluid. Temperature max 101.3. Pulse 87, respiratory rate 33, blood pressure 120/57, pulse ox 95%. quality assurance monitor body is a sinus rhythm. Repeat blood work reveals WBC 8.3, hemoglobin 11. Sodium 136, chloride 108. Creatinine is 0.83. Calcium 7.9. Total bilirubin 2.7, AST 64, ALT 171, alkaline phosphatase 127. LDH 1187. C-reactive protein 32.6. Blood sugars are running between 133 and 173. Urine culture is showing gram-negative bacilli. Blood culture from 01/24 showing no growth at 24 hours. Repeat chest x-ray reveals clear to megaly with bilateral confluent mid to lower lung opacities consistent with: 19 infection redemonstrated. No significant change. Patient is currently on cefepime, Zyvox and there, so for worsening bilateral pulmonary infiltrate, pneumonia. 01/26: Patient remains in intensive care unit on mechanical ventilation with tidal volume 450, FiO2 80 and PEEP of 12. He has been afebrile for greater than 24 hours. Heart rate 80, blood pressure 132/70, pulse ox 86%. He does have leaking around the tracheostomy site. Repeat blood work reveals WBC 8, hemoglobin 11.1, platelet count 291. Sodium 135, potassium 5.8, creatinine 1.15. Total bilirubin 1.8, AST 101, ALT 194, alkaline phosphatase 135. LDH 1156. C-reactive protein 35.7. Blood sugars are running between 154 and 183. Patient will be started on Levemir 10 units at bedtime. He is continued on cef epime, Zyvox and voriconazole. 01/27: Patient remains intubated and on mechanical ventilation with tidal volume 400 50, FiO2 60, PEEP of 12. Plan is to try and wean oxygen down today. Tracheostomy tube has been manipulated and repositioned. He is not requiring vasopressors, currently on propofol. Chest x-ray reveals no significant interval change. Patient has had good urine output with BUN of 37 creatinine 1.28. Other lab work reveals WBC 9.8, hemoglobin 10.7. D-dimer 5.45. Total bilirubin 1.4, AST 153, ALT 282, alkaline phosphatase 138, LDH 1073. C-reactive protein 16.3. ProCalcitonin 10.1. 01/28: Remains in the intensive care unit, intubated and on mechanical ventilation with tidal volume 450, FiO2 of 60 and PEEP of 10. Patient is responsive, follows a few simple commands. He is currently on antibiotics in the form of cefepime, Zyvox and voriconazole. Patient is also continued on Decadron and Lovenox. Repeat blood work reveals WBC of 10, hemoglobin 10.5. D- dimer 5.63. C-reactive protein 6.2. LDH 1025. Total bilirubin 1.3, AST 95, ALT 250. Patient is on tube feedings at goal. He has had good urine output. Social work will start process for discharge to select specialty with anticipation of him being ready by the end of the week. 01/29 patient is currently in the ICU on with tracheostomy with tidal volume 450 FiO2 decreased to 55 this morning with PEEP of 10. Patient is responsive get agitated once propofol is discontinued. Patient is getting of diarrheal ordered every few hours to help with pain control. Currently stays on antibiotic in the form of cefepime, Zyvox and voriconazole. Urine output is appropriate in her on 75 200 mL per hour. Continues to remain on Decadron and Lovenox. He's currently off norepinephrine off Precedex is off fentanyl. Chest x-ray reviewed has bilateral interstitial infiltrate not changed. Labs reviewed, WBC 11.1 h emoglobin is 11.4 R blood gas this morning on 60% FiO2 suggest EF pO2 of 65 bicarb 26 blood sugar controlled ranging from 156-197. Ventilator management per pulmonary as reduce the FiO2 to 55 . Repeat blood gas in 24 hours. Patient initiating Seroquel 50 twice a day for agitation. Discussion with the nurse was made to reduce the Seroquel to 25 twice a day if patient appears to be sedated 01/30: Patient remains in intensive care unit, intubated status post tracheostomy and PEG tube placement. He is on tidal volume 450, FiO2 of 50 and PEEP is down to 10. He is able to follow some simple commands. Pulmonary medicine is planning to discontinue propofol and switched to Precedex. He is on tube feedings. Social work is following for possible discharge to [facility] by the end of the week. 01/31: Patient remains in the intensive care unit intubated and on mechanical ventilation status post PEG tube and trach. Tidal volume 450, FiO2 50 and PEEP of 10. Patient is on propofol. He is on PEG tube feedings at goal. Patient is continued on Lovenox, Decadron, supplements. Cefepime has been discontinued and he is continued on Zyvox and 4, his old. Social work is following closely for discharge planning however at this time, there are no facilities that will accept the patient. 02/01: Patient is out of Covid isolation. Patient remains on mechanical ventilation with tidal volume 450, FiO2 50, PEEP of 10. Patient is on propofol which is to be weaned off today. He still has Sim catheter with good urine output. Feedings are at goal. Patient has occasional cough, mild edema. Patient is refusing IV Dilaudid for pain. Bowel movements been soft but no diarrhea. Patient is afebrile, heart rate 68, respiratory rate 24, blood pressure 130/75, pulse ox 92%. 02/02: Patient is seen in ICU he is currently out of Covid isolation. Remains on mechanical ventilation with trach. Tidal volume 450, rate of 22 with a PEEP of 8 FiO2 of 50%. Patient is currently on propofol which will continue to be weaned today with the addition of Ativan. Sim catheter in place with good urine output. Feedings are at goal. Does have occasional cough, mild edema. 02/03: Patient is seen in ICU remains on mechanical ventilation with trach. Tidal volume 450 rate of 22 with a PEEP of 6 FiO2 of 45%. Patient is off of propofol. Discussion for transitioned to CPAP machine for today. Sim catheter in place with good urine output. Feedings are at goal. Patient does have occasional cough continues have mild edema. Patient is able to follow commands bilateral upper extremity strength equal. 02/04: Patient remains in the intensive care unit. He is currently on trach collar at 40% FiO2 with pulse ox of 97%. He is afebrile, heart rate in the 50s to 80s, blood pressure 105/69. Repeat blood work reveals WBC 9.9, hemoglobin 11.1, platelet count 230. Sodium 135, potassium 4.3, chloride 101, CO2 29, BUN 40 creatinine 0.96. Blood sugars are running between 125 and 211. Repeat chest x-ray reveals findings consistent with Covid pneumonia consider ARDS. Patient is now slowly progressing and his goal is to get home by [place]. 02/05: Patient remains in the intensive care unit. He is on trach collar at 40% FiO2 with pulse ox of 87 and 95%. Blood pressure 103/66, heart rate in the 50s and 60s, afebrile. Patient is able to mouth words and cough is better today. He is needing to be suctioned for secretions. He is nothing by mouth and on peg tube feedings at goal. Repeat blood work reveals hemoglobin 11.7, WBC 11.2. Sodium 136, potassium 5, chloride 99, CO2 32, BUN 38 and creatinine 1. Blood sugars are running between 125-197. Repeat chest x-ray consistent with history of pneumonia. Patient may move out of the ICU tomorrow. REVIEW OF SYSTEMS. Constitutional: No fever, no chills, no night sweats. No weight change. Reports weakness, no fatigue or lethargy. No daytime sleepiness. EENT: No headache. No blurred vision or double vision, no loss of vision. No loss of Hearing, no ringing in the ears, no dizziness. No nasal drainage or congestion. No epistaxis. No sore throat. Lungs: No shortness of breath, noted cough, noted sputum production. No wheezing. Cardiovascular: No chest pain, no lower extremity edema. No palpitations. No paroxysmal nocturnal dyspnea. No orthopnea. No lightheadedness or dizziness. No syncopal episodes. Abdominal: no abdominal discomfort. No nausea, vomiting. no diarrhea. No constipation. No bloody or tarry stools. no loss of appetite. Genitourinary: No dysuria, increased frequency, urgency. No urinary retention. Musculoskeletal: No myalgias. No muscle weakness, no gait dysfunction, no frequent falls. No back pain. No neck pain. Integumentary: No wounds, no lesions. No rash or pruritus. No unusual bruising. No change in hair or nails. Neurologic: No aphasia. No facial droop. No change in mentation. No head injury. No headache. No paralysis. No paresthesia. Psychiatric: No depression. No anxiety. No mood swings. Endocrine: No abnormal blood sugars. No weight change. No excessive sweating or thirst. PHYSICAL EXAMINATION Gen: This is a 55-year-old male. He is resting in ICU bed, on trach collar at 40% FiO2, status post trach and PEG. HEENT: Head is atraumatic, normocephalic. Pupils equal, round. Sclerae is anicteric. Tracheostomy intact. NECK: Supple. No JVD. No lymphadenopathy. LUNGS: Crackles bilaterally. No accessory muscle usage. No intercostal retractions. HEART: Regular rate and rhythm. No murmur. ABDOMEN: Soft. Bowel sounds are present. No masses. No tenderness. PEG tube in place. EXTREMITIES: No pedal edema. No calf tenderness. NEUROLOGICAL: Patient is awake, alert and oriented 3, and able to follow commands and answer questions appropriately. ASSESSMENT AND PLAN 1. Acute hypoxic respiratory failure secondary to Covid 19 pneumonia and possible secondary pneumonia, gram-negative and fungal. Patient required intubation 01/14. Patient is status post trach and PEG tube placement 01/[address] Olivares. Patient started on Remdesivir was discontinued by pulmonary, on January 12/2021 started on baricinib 4 mg daily, Baricitinib discontinued on 01/24. Continue dexamethasone, Lovenox, and supplements. 2. Acute respiratory distress syndrome secondary to coronavirus pneumonia. 3. Acute septic shock requiring vasopressors. Patient is status post IV fluid bolus and off vasopressors. 4. History of bilateral pulmonary emboli and DVT in 2016. CTA negative for PE. Not on chronic anticoagulation. 5. Acute transaminitis secondary to Covid 19. 6. Generalized osteoarthritis. 7. Degenerative changes in the cervical spine status post fusion of C5-6. 8. 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 9. Elevated liver function tests, transaminitis. 10. Hyperglycemia secondary to steroids. Patient is on NovoLog scale, Levemir 10 units at bedtime added. 11. Severe hyperkalemia, resolved. 12. GI prophylaxis. Protonix. 13. DVT prophylaxis. Lovenox. 14. Acute agitation on ventilator area superintendent distribution has increased Seroquel to 100 mg twice daily by superintendent distribution. DISCHARGE PLAN TBD Impression and plan of care have been directed as dictated by the signing physician. Shakila Mosqueda nurse practitioner acting as scribe for signing physician. Objective - Vital Signs Vital signs: Vital Signs Temp 98.9 F 02/05/21 08:00 Pulse 68 02/05/21 10:00 Resp 27 H 02/05/21 10:00 BP 100/62 02/05/21 10:00 Pulse Ox 87 L 02/05/21 10:00 Intake & Output 02/04/21 02/05/21 02/05/21 18:59 06:59 18:59 Intake Total 930 783 230 Output Total 1570 1470 350 Balance -640 -687 -120 Weight 97.2 kg 97.2 kg Intake: IV 156 93 Pressure Bags 36 3 Sodium Chloride 0.9% 1, 120 90 000 ml @ 20 mls/hr IV . Q24H [facility] Rx#:[id number] Tube Feeding 584 600 200 Other 190 90 30 Output: Urine 1570 1470 350 Other: Voiding Method Indwelling Catheter Indwelling Catheter Indwelling Catheter ABP, PAP, CO, CI - Last Documented Arterial Blood Pressure 118/93 - Labs CBC & Chem 7: 02/05/21 02:52 02/05/21 02:52 Labs: Abnormal Lab Results - Last 24 Hours (Table) 02/04/21 02/04/21 02/05/21 Range/Units 11:46 17:55 02:52 WBC 11.2 H (3.8-10.6) k/uL RBC 3.88 L (4.30-5.90) m/uL Hgb 11.7 L (13.0-17.5) gm/dL Hct 37.0 L (39.0-53.0) % Neutrophils # 9.4 H (1.3-7.7) k/uL Sodium (137-145) mmol/L Carbon Dioxide (22-30) mmol/L BUN (9-20) mg/dL Glucose (74-99) mg/dL POC Glucose (mg/dL) 125 H 197 H (75-99) mg/dL 02/05/21 02/05/21 Range/Units 02:52 05:42 WBC (3.8-10.6) k/uL RBC (4.30-5.90) m/uL Hgb (13.0-17.5) gm/dL Hct (39.0-53.0) % Neutrophils # (1.3-7.7) k/uL Sodium 136 L (137-145) mmol/L Carbon Dioxide 32 H (22-30) mmol/L BUN 38 H (9-20) mg/dL Glucose 213 H (74-99) mg/dL POC Glucose (mg/dL) 168 H (75-99) mg/dL
--- NOTE | 2021-02-05 12:36 | P.PN ---
Subjective Progress Note Date: 02/05/21 CHIEF COMPLAINT: COVID-19 pneumonia HISTORY OF PRESENT ILLNESS: Patient in the ICU and is on trach collar. Patient is status post trach and PEG tube placement. Patient lying in bed comfortably. Tolerating tube feeds. Tube feeds remain at goal. No residual reported. Afebrile. WBC 11.2 PHYSICAL EXAM: VITAL SIGNS: Reviewed. GENERAL: Well-developed in no acute distress. HEENT: No sclera icterus. Extraocular movements grossly intact. Moist buccal mucosa. Head is atraumatic, normocephalic. Tracheostomy site clean dry and intact ABDOMEN: Soft. Nondistended. Nontender. PEG tube site clean dry and intact NEUROLOGIC: Awake ASSESSMENT: 1. Acute hypoxic respiratory failure secondary to COVID-19 pneumonia status post tracheostomy placement 2. Severe protein calorie malnutrition status post PEG tube placement PLAN: -Continue to monitor tracheostomy and PEG tube sites -Continue ICU management -Continue supportive care Physician Side Boss note has been reviewed by physician. Signing provider agrees with the documented findings, assessment, and plan of care. Objective - Vital Signs Vital signs: Vital Signs Temp 98.9 F 02/05/21 08:00 Pulse 68 02/05/21 10:00 Resp 27 H 02/05/21 10:00 BP 100/62 02/05/21 10:00 Pulse Ox 87 L 02/05/21 10:00 Intake & Output 02/04/21 02/05/21 02/05/21 18:59 06:59 18:59 Intake Total 930 783 230 Output Total 1570 1470 350 Balance -640 -687 -120 Weight 97.2 kg 97.2 kg Intake: IV 156 93 Pressure Bags 36 3 Sodium Chloride 0.9% 1, 120 90 000 ml @ 20 mls/hr IV . Q24H [facility] Rx#:[id number] Tube Feeding 584 600 200 Other 190 90 30 Output: Urine 1570 1470 350 Other: Voiding Method Indwelling Catheter Indwelling Catheter Indwelling Catheter ABP, PAP, CO, CI - Last Documented Arterial Blood Pressure 118/93 - Labs CBC & Chem 7: 02/05/21 02:52 02/05/21 02:52 Labs: Abnormal Lab Results - Last 24 Hours (Table) 02/04/21 02/05/21 02/05/21 Range/Units 17:55 02:52 02:52 WBC 11.2 H (3.8-10.6) k/uL RBC 3.88 L (4.30-5.90) m/uL Hgb 11.7 L (13.0-17.5) gm/dL Hct 37.0 L (39.0-53.0) % Neutrophils # 9.4 H (1.3-7.7) k/uL Sodium 136 L (137-145) mmol/L Carbon Dioxide 32 H (22-30) mmol/L BUN 38 H (9-20) mg/dL Glucose 213 H (74-99) mg/dL POC Glucose (mg/dL) 197 H (75-99) mg/dL 02/05/21 Range/Units 05:42 WBC (3.8-10.6) k/uL RBC (4.30-5.90) m/uL Hgb (13.0-17.5) gm/dL Hct (39.0-53.0) % Neutrophils # (1.3-7.7) k/uL Sodium (137-145) mmol/L Carbon Dioxide (22-30) mmol/L BUN (9-20) mg/dL Glucose (74-99) mg/dL POC Glucose (mg/dL) 168 H (75-99) mg/dL
[2021-02-05 12:46] LABS: Glucose,Whole Blood 187 mg/dL (75-99)
[2021-02-05 17:43] LABS: Glucose,Whole Blood 147 mg/dL (75-99)
[2021-02-05] MEDS: INSULIN DETEMIR (LEVEMIR) 100 UNIT/ML SYR SQ SCH (21:06)
[2021-02-05 23:58] LABS: Glucose,Whole Blood 127 mg/dL (75-99)
[2021-02-06 05:30] LABS: Glucose,Whole Blood 123 mg/dL (75-99)
[2021-02-06] MEDS: INSULIN ASPART (NovoLOG) 100 UNIT/ML VIAL SQ SCH ×3 (05:36→18:45)
[2021-02-06] MEDS: ENOXAPARIN 40 MG/0.4 ML SYRINGE SQ SCH (09:12)
[2021-02-06] MEDS: PANTOPRAZOLE 40 MG/10 ML VIAL IVP SCH (09:12)
[2021-02-06] MEDS: DEXAMETHASONE SOD PHOSPHATE 10 MG/ML 1 ML VIAL IVP SCH (09:12)
[2021-02-06] MEDS: ASCORBIC ACID 500 MG TAB PO SCH (09:12)
[2021-02-06] MEDS: ZINC SULFATE 220 MG CAP PO SCH (09:13)
[2021-02-06] MEDS: QUEtiapine 100 MG TAB PO SCH ×2 (09:13→21:11)
[2021-02-06] MEDS: CHLORHEXIDINE GLUCONATE 15 ML CUP MUCOUS MEM SCH ×2 (09:13→20:50)
[2021-02-06] MEDS: CHOLECALCIFEROL 25 MCG (1000 IU) TABLET PO SCH (09:13)
--- NOTE | 2021-02-06 11:07 | P.PN ---
Subjective Progress Note Date: 02/06/21 Principal diagnosis: Coronavirus associated pneumonia. COVID-19 pneumonia 55-year-old male patient of Dr. Palm, with a past medical history of bilateral pulmonary emboli, and left leg DVT, migraine headaches, hiatal hernia, inguinal hernias, osteoarthritis with previous history of right shoulder arthroscopy, cervical fusion, nonsmoker, who came into the emergency department on 01/11/2021 for evaluation of shortness of breath, fatigue, cough, fever. His symptoms started on Thursday01/11/2021 and became progressive. Patient is not vaccinated against COVID-19. Chest x-ray today shows patchy bilateral airspace disease especially in the mid and lower lungs. COVID-19 PCR was negative, his white count is 6.1, hemoglobin is 16.8, platelet count is 128, lymphocyte count is 0.9, d-dimer is 0.82, coagulation profile was within normal limits, sodium is 131, the rest of electrolytes are within normal limits, troponin was less than 0.012, LFTs were within normal limits, lactic acid was 1.1. CT angiogram of the chest showed suboptimal study without central acute pulmonary embolism, and bilateral multifocal and confluent groundglass opacities right greater than left and greater in the lower lungs consistent with history of COVID-19 infection. Pulse ox was 85%, patient was febrile on presentation with a temp of 101.1F, he was placed on 3 L of supplemental oxygen, he is awake and alert, does not appear to be in any acute distress, he is ambulating, and does have exertional dyspnea but no acute distress. He was started on Decadron 10 mg IV push 1, prophyla ctic Lovenox, and multivitamins The patient is seen today 01/12/2021 in follow-up on the regular medical floor. He is currently sitting up in a chair at the bedside. His oxygen requirements to go up. He is currently on a 15 L nonrebreather mask with O2 saturation 91%. He was on 4 L yesterday. He is having more shortness of breath. 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 D-dimer 0.84. LDH 684. C-reactive protein 7.0. He is on day #2 of Remdesivir. He remains on Decadron, Lovenox, vitamin supplements. 0.9 normal saline at 130 ML's per hour. The patient is seen today 01/13/2021 in follow-up on the regular medical floor. He is currently sitting up in a chair at the bedside. Awake and alert. He did have some issues with worsening shortness of breath on minimal exertion. He is on the AirVo high flow oxygen at 4 L and 90% FiO2 plus a nonrebreather mask to maintain O2 saturations in the high 80s and low 90s. He's been afebrile. Hemodynamically stable. White count 8.8. Hemoglobin 13.9. Lymphocytes 0.9. Sodium 137. Potassium 4.1. Creatinine 0.4. He is continued on Baricitinib, Decadron, Lovenox, vitamin supplements. Progress note dated 01/14/2021. This morning, the patient was on BiPAP, with settings of 14/6 and 100%. He change IPAP of 14-16. The patient's getting saline at 130 mL an hour, and Precedex at 0.4 mcg/kg/h. I did speak to the patient about the possibility of intubation and mechanical ventilation. The patient was also placed on IV heparin, given his prior history of DVT and pulmonary embolism. White count 7.4, hemoglobin 14.4, hematocrit 43.8, platelet count 165,000. D-dimer was 12.04. Sodium 135, potassium 4.7, chlorides 107, CO2 23, anion gap 5, BUN 24, and creatinine 0.82. LDH was 2929. C-reactive protein was 5.2. The patient's chest x-ray shows diffuse bilateral infiltrates. This patient was admitted to the hospital on January 11, and moved to the intensive care unit on January 13 for worsening hypoxemic respiratory failure. Progress note dated 01/15/2021. Yesterday, the patient was intubated and mechanically ventilated, after developing worsening hypoxemic respiratory failure. A central line was placed, as well as an art line. The patient remains on mechanical ventilator. Currently, he's on the volume assist control mode, rate 26, tidal volume 450, FiO2 100%, and PEEP of 15. Arterial blood gases show a PaO2 of 129, pCO2 58, and a pH is 7.24. With that, the rate is increased to 30 breaths per minute, and the FiO2 was reduced down to 80%. The patient remains on propofol, at 50 mcg/kg/m, Nimbex, at 2 mcg/kg/m, and norepinephrine at 0.03 mcg/kg/m. The patient's also getting saline at 130 mL an hour, IV heparin, and vital, at 23 mL an hour, which is goal. White count 9.5, hemoglobin 13.4, hematocrit 42.3, and platelet count 205,000. PTT is 119. Sodium 140, potassium 4.9, chlorides 111, CO2 25, anion gap 4, BUN 20, creatinine 0.88. The patient's albumin was 2.7. AST was 126 with an ALT of 183. The patient's chest x-ray is consistent with d iffuse bilateral infiltrates, consistent with coronavirus associated pneumonia, and acute respiratory distress syndrome. Progress note dated 01/16/2021. 55-year-old male, with coronavirus associated pneumonia. The patient was intubated and mechanically ventilated on January 14 for worsening hypoxemic respiratory failure. He remains on the ventilator. The patient is on the volume assist control mode, rate 30, tidal volume 450, FiO2 80%, PEEP of 15. Arterial blood gases show pO2 of 53, pCO2 43, and a pH is 7.39. Those blood gases were done on 50%, and subsequent currently, he was increased up to 80%. I've reduced him back down to 60%. In addition, the patient's getting saline at 130 mL an hour, which will be reduced down to KVO, heparin, via weightbase protocol, propofol, at 70 mcg/kg/m, Nimbex at 1.25 mcg/kg/m vital 1.2 at 23 mL an hour, which is goal, and norepinephrine, which is been weaned off recently. White count 9.5, hemoglobin 12.4, hematocrit 38.5, platelet count 199,000. PTT is 40.9, d-dimer is 4.98. Electrolytes, for some reason were not drawn. Chest x-ray shows diffuse bilateral infiltrates, consistent with coronavirus associated pneumonia. Progress note dated 01/17/2021. 55-year-old male, with coronavirus pneumonia. The patient was intubated and mechanically ventilated on January 14 for worsening hypoxemic respiratory failure. The patient remains on mechanical ventilator. He is on the volume assist control mode, rate 30, tidal volume 450, FiO2 60%, and PEEP of 15. Blood gases show a PaO2 of 79, CO2 53, and pH 7.35. The patient remains on Nimbex at 2.25 mcg/kg/m, a fall at 70 mcg/kg/m, heparin via weightbase protocol, saline at 20 mL an hour, and vital AF at 14, which is goal. The patient was prolonged for 16 hours yesterday. The patient does have a cuff leak on its endotracheal tube. We'll have anesthesia take a look at it. The 2 may need to be replaced. White count 9.2, he will been 12.6, hematocrit 37.3, and platelet count 340,000. PTT is 48.4. Sodium 135, potassium 4.1, chlorides 104, CO2 27, anion gap 4, BUN 20, with a creatinine 0.73. Albumin is 2.5. Chest x-ray shows diffuse bilateral infiltrates consistent with coronavirus pneumonia. Progress note dated 01/18/2021. 55-year-old male, with coronavirus pneumonia. The patient was placed on the mechanical ventilator on January 14, for worsening hypoxemic respiratory failure. He remains on the ventilator. The patient is on the volume assist control mode, rate 30, tidal volume 450, FiO2 55%, and PEEP 15. Blood gases show pO2 of 88, pCO2 of 44, and a pH is 7.48. These blood gases were done actually on 60%. The patient remains on heparin via weightbase protocol, propofol at 70 mcg/kg/m, Nimbex at 2.25 mcg/kg/m, vital AF at 14 mL an hour which is goal. The patient was proned again for 16 hours. White count 7.7, hemoglobin 12.2, hematocrit 36.6, and platelet count 2 49,000. Sodium 138, potassium 4, chlorides 103, CO2 31, anion gap 4, BUN 20, and creatinine 0.73. Chest x-ray shows diffuse bilateral infiltrates, consistent with acute respiratory distress syndrome. Progress note dated 01/20/2021. 55-year-old male, admitted with a diagnosis of coronavirus associated pneumonia. The patient is again seen in room 254. He remains on the mechanical ventilator. He is on the volume assist control mode, rate 30, tidal volume 450, FiO2 50%, PEEP of 5. Arterial blood gases show a PaO2 of 77, PaCO2 42, and a pH is 7.47. The patient remains on Nimbex at 3 mcg/kg/m, propofol at 50 mcg/kg/m, heparin via weightbase protocol, and vital AF at 14 mL an hour, which is goal. Current labs include a white count of 8, hemoglobin 11.7, hematocrit 34.9, and a platelet count of 292,000. PTT is 44.2. Sodium 137, potassium 4, chlorides 103, CO2 28, anion gap 6, BUN 24, and creatinine 0.73. AST is 118 with an ALT of 243. LDH is 1228. C-reactive protein is 8.7. Chest x-ray continues to show bilateral airspace disease, which is essentially unchanged. Reevaluated today on 01/31/2021, patient remains in the ICU, intubated and mechanically ventilated. He is on assist control rate of 22, volume control +450 FiO2 50% PEEP is at 10. ABG showed a pO2 of 58 pCO2 of 38 pH of 7.46. Patient is still requiring propofol, he could not tolerate switching propofol to Precedex as he became extremely agitated and restless tachypneic and tachycardic, hence he was placed back on propofol at 60 mcg/kg/m. Chest x-ray continues to show bilateral infiltrates. Improved compared to his initial baseline chest x-ray. CBC is relatively unremarkable electrolytes are unremarkable. Renal profile is normal. Patient remains on enteral feeding via PEG tube. Remains on the COVID-19 cocktail, remains on Decadron. Remains on Lovenox 40 mg subcu daily. He is on Dilaudid when necessary. Remains on Protonix, Seroquel was added a few days ago, and I will likely increase the dose. Patient is still on Zyvox and he is on voriconazole. Patient is off cefepime. Reevaluated today on 02/01/2021, patient remains in the ICU, intubated and mechanically ventilated, continues to have tracheostomy in place, and seems to be intact. Patient is awake, maintain on propofol at 40 mcg/kg/m, however I have instructed the nursing staff today to cut down the propofol and hopefully discontinued if possible as long as the patient remains calm and not agitated. We have tried in the past titrating propofol and with dried Precedex on this patient, and nothing seems to help, however I went ahead and increased his dose of Seroquel. Hoping we could get the patient off propofol. Patient is on volume control +450 rate of 22 of 10 FiO2 50%. ABG is marginal with a pO2 of 63 pCO2 of 40 pH of 7.43. WBC count 9.2 hemoglobin 10.4 electrodes are normal renal profile is normal. Chest x-ray continues to show bilateral infiltrates, not much of a change noted. Medications lund, patient remains on Decadron 6 mg IV push twice a day, he is on Lovenox 40 mg subcu daily, lactulose, Zyvox, voriconazole, Seroquel 100 twice a day, Protonix 40 mg IV push daily, he is not requiring any pressors, and he is off cefepime. Reevaluated today on 02/02/2021, patient is basically about the same. Remains intubated and mechanically ventilated. Remains on propofol at 30 mcg/kg/m, not requiring any other sedation medication, patient had poor tolerance to Precedex. Today I recommended a trial of Ativan 1 mg IV push every 4 hours when necessary, hoping we can taper down and possibly discontinue propofol altogether. Patient is hemodynamically stable, not requiring any pressors. Remains on assist control rate of 22 volume control plus of 450 FiO2 50% remains on antibiotics and antifungal. Remains on Protonix for GI prophylaxis. And he is off cefepime. ABG today showed a pO2 of 75 pCO2 of 42 pH of 7.47. WBC count is 9.4 hemoglobin 11.6. Electrolytes and renal profile are normal. Patient remains on the COVID-19 cocktail. Lovenox 40 mg subcu daily. He remain s on Zyvox. Remains on ascorbic acid. And on zinc. Patient is also on vitamin D Reevaluated today on 02/03/2021, patient remains in the ICU, intubated and mechanically ventilated. Finally the patient is off propofol, he is on Ativan when necessary, he is also on Seroquel, and overall I believe the patient is making a significant improvement in his intermittent episodes of agitations, and his requirement for sedation. Today I reviewed his ventilator settings and he is on assist control rate of 22 tidal volume 450 FiO2 50% PEEP of 6. His chest x-ray continues to show some bibasilar infiltrates bilaterally. Minimal improvement compared to his baseline. ABG showed a pO2 of 67 pCO2 43 pH of 7.47 hence I recommended that that the patient goes on a trial of weaning with a pressure support of 10 and CPAP. WBC count is 9.2 hemoglobin is 10.9. Medication list was reviewed, patient is on vitamin C, Peridex, vitamin D, Decadron 6 mg IV push twice a day, Lovenox 40 mg subcu daily, Dilaudid when necessary, Ativan when necessary, Zyvox 600 mg IV to 12 hours, Protonix 40 mg IV push daily Seroquel 100 mg by mouth twice a day voriconazole, and zinc. Progress note dated 02/04/2021. 55-year-old male, seen in room 251. The patient was admitted on January 11. He came in with woodruff virus associated pneumonia. He came to the intensive care unit on January 13, and was intubated on the . The patient underwent tracheostomy and PEG tube placement on January 23. Currently, he sitting at the bedside. He is on pressure support of 10 and CPAP of 5 and 45%. He's been on that for 24 hours. He looks very comfortable. I told respiratory therapist that we could try to transition him to a trach collar. The patient is receiving saline at KVO. He is getting vital AF at 50 mL an hour, which is goal. The patient is on multiple antibiotics including voriconazole and Zyvox, neither of which needs to be continued. Blood gases showed a pO2 of 87, pCO2 of 37, and a pH is 7.52. White count 9.9, hemoglobin 11.1, hematocrit 33.7, platelet count 230,000. Sodium 135, potassium 4.3, chlorides 101, CO2 29, anion gap 5, BUN 40, creatinine 0.96. Chest x-ray shows diffuse bilateral infiltrates consistent with coronavirus pneumonia and/or ARDS. Progress note dated 02/05/2021. 55-year-old male, again seen in room 251. The patient was admitted on January 11. He was admitted with a diagnosis of coronavirus associated pneumonia. He came to the intensive care unit on January 13, and was intubated for respiratory failure on the . The patient underwent tracheostomy and PEG tube placement on January 23. Since yesterday, at 10 AM, he's been on 40% trach collar. He seems to be doing relatively well. He is not receiving any IV fluids. He is getting vital AF at 50 mL an hour, which is goal. If E stable tomorrow, he can move out of the intensive care unit. Currently, white count is 11.2, hemoglobin 11.7, hematocrit 37, and platelet count 318,000. Sodium 136, p otassium 5, chlorides 99, CO2 32, anion gap 5, BUN 38, creatinine 1. Chest x- rays consistent with diffuse bilateral infiltrates, and is essentially unchanged. Progress note dated 02/06/2021. 55-year-old male, again seen in room 251. The patient was admitted to the hospital on January 11. The patient was admitted with a diagnosis of coronavirus associated pneumonia. He came to the intensive care unit on January 13, and was intubated for respiratory failure on the . The patient underwent tracheostomy and PEG tube placement on January 23. For the last 48 hours, the patient has been either on trach collar or T-piece. The patient is not receiving any IV fluids. The patient is a candidate to go to the general medical floor without telemetry. No new labs or x-rays today. Objective - Vital Signs Vital signs: Vital Signs Temp 97.9 F 02/05/21 20:00 Pulse 73 02/06/21 09:00 Resp 27 H 02/06/21 09:00 BP 103/59 02/06/21 09:00 Pulse Ox 90 L 02/06/21 09:00 Intake & Output 02/05/21 02/06/21 02/06/21 18:59 06:59 18:59 Intake Total 690 640 50 Output Total 1000 700 Balance -310 -60 50 Weight 97.2 kg 95.6 kg Intake: Tube Feeding 600 550 50 Other 90 90 Output: Urine 1000 700 Other: Voiding Method Urinal Urinal ABP, PAP, CO, CI - Last Documented Arterial Blood Pressure 118/93 - Exam No acute distress, oriented 3, laying in the bed, on a trach collar. HEENT examination is grossly unremarkable. Neck supple. Full range of motion. No adenopathy thyromegaly or neck vein distention. Midline tracheostomy tube noted in good position. Cardiovascular examination reveals regular rhythm rate. S1-S2 normal. No S3 or S4. No discernible murmur noted. Heart sounds are distant. Heart rate 73 bpm. Lungs reveal guarded bilateral rhonchi. Breath sounds equal bilaterally. No wheezes or crackles. Saturations are between 90 and 94%.. Abdomen soft bowel sounds are heard. No masses or tenderness. PEG tube noted. Extremities are intact. No cyanosis clubbing or edema. Skin is without rash or lesion. Neurologic examination is brief but nonfocal. - Labs CBC & Chem 7: 02/05/21 02:52 02/05/21 02:52 Labs: Abnormal Lab Results - Last 24 Hours (Table) 02/05/21 02/05/21 02/05/21 Range/Units 12:44 17:41 23:56 POC Glucose (mg/dL) 187 H 147 H 127 H (75-99) mg/dL 02/06/21 Range/Units 05:29 POC Glucose (mg/dL) 123 H (75-99) mg/dL Assessment and Plan Assessment: Acute hypoxemic respiratory failure secondary to coronavirus associated pneumonia, with intubation and mechanical ventilation, initiated on January 14, for worsening hypoxemia, and subsequent tracheostomy and PEG tube placement on January 23, 2021. Acute respiratory distress syndrome (ARDS), secondary to coronavirus associated pneumonia. Previous history of bilateral pulmonary emboli, and left leg DVT, 2015, currently on IV heparin empirically. Critical illness polyneuropathy. History of osteoarthritis. No prior history of tobacco use. Acute kidney injury, resolved. Plan: Plan dated 01/14/2021. Currently, the patient's on appropriate medication. I did tell the patient, that he may require intubation and mechanical ventilation. Currently, he looks so good despite being on BiPAP, the patient will try to ride it out a bit longer. Should he fatigue, or should his saturations drop, we will do an elective intubation and mechanical ventilation. Will likely need an art line and a central line. Labs are reviewed. Prognosis is guarded. We will continue to follow make recommendations where appropriate. Plan dated 01/15/2021. Yesterday, the patient developed worsening hypoxemic respiratory failure, and was intubated. The patient remains on vitamin C, vitamin D3, and zinc. In addition, the patient is being sedated with, and paralyzed with Nimbex. The patient is getting Dilaudid when necessary. The patient remains on IV heparin, and Decadron. The patient is also getting BASHIR. Obviously, the patient is very critically ill, and we will continue to follow the patient and make recommendations were appropriate. Prognosis is guarded. Plan dated 01/16/2021. The patient remains on the mechanical ventilator. We have been able to wean off the norepinephrine. Remains on propofol, and Nimbex. He is getting tube feeds at goal. The patient gets Lasix 40 mg IV push. We will attempt to prone the patient for 16 hours. The FiO2 was changed to 60%. We will continue to follow make recommendations where appropriate. Prognosis is guarded. In addition to vitamins, and Decadron, he remains on BASHIR. Plan dated 01/17/2021. The patient is not quite ready to come off the ventilator. He still requiring 6% FiO2, and PEEP of 15. The patient has shown some improvement since he was intubated a couple days ago. He remains on IV heparin, propofol, and paralysis with Nimbex. The patient was proned for 16 hours yesterday. His endotracheal tube may need to be changed. He remains on vital AF. We will continue to follow and make recommendations were appropriate. Prognosis is certainly guard ed. He remains on vitamin C, vitamin D3, zinc, Decadron, and BASHIR. Plan dated 01/18/2021. The patient remains on the mechanical ventilator. He remains on heparin, propofol, Nimbex, and tube feeds. The patient's oxygenation has improved a bit, and once he hits an FiO2 of 50% or less, we will be able to start weaning down the PEEP. Patient remains on vitamin C, vitamin D3, zinc, Decadron, and BASHIR. We will continue to follow make recommendations where appropriate. The patient remains on BASHIR. Plan dated 01/20/2021. The patient was seen by my nurse practitioner along with me yesterday. The patient remains on the mechanical breathing machine. He remains on heparin, propofol, Nimbex, and tube feeds. In addition, the patient is on vitamin C, vitamin D3, zinc, Decadron, and BASHIR. In my opinion, although last couple of days, the patient's chest x-ray has shown some improvement, and his oxygenation has improved. He is currently on 50% with PEEP of 15. We will continue to follow make recommendations were appropriate. Prognosis is guarded. Medications, x-rays, and labs are all reviewed. Plan dated 02/04/2021. The patient had a tracheostomy and PEG tube placement placed on January 23. Currently he is resting comfortably at bedside, on pressure support of 10 and CPAP of 5. He is receiving 45% FiO2. We are going to try to get him onto trach collar today. We'll DC the voriconazole and Zyvox. The patient continues on saline at KVO and tube feeds at goal of 50 mL an hour. Blood gases show pO2 of 87, pCO2 37, and a pH is 7.52. We will continue to follow and make re commendations where appropriate. Prognosis is still guarded. Plan dated 02/05/2021. The patient has been on trach collar since 10:00 yesterday. He is doing very well. The patient is not receiving any IV fluids. The patient remains on vitamin C, vitamin D3, and zinc. In addition, the patient is on Lovenox and Decadron. Additional recommendations and suggestions are forthcoming. Prognosis is guarded. I will cut back on the Decadron to once a day. Plan dated 02/06/2021. The patient remains in the intensive care unit, room 251. The last 48 hours or so, the patient has been on trach collar, or on a Mooney trial. The patient is not receiving any IV fluids. No new labs to report. No new x-rays to report. The patient's medications include vitamin C, vitamin D3, zinc, Decadron, and Lovenox. Additional recommendations and suggestions are forthcoming. Prognosis is guarded. We will continue to follow this patient and make recommendations where appropriate. Hopefully, the patient could be considered for transfer out to the general medical floor. Time with Patient: Greater than 30
[2021-02-06 12:14] LABS: Glucose,Whole Blood 165 mg/dL (75-99)
--- NOTE | 2021-02-06 12:41 | FL ---
COMPARISON: NONE DATE OF EXAM: 02/06/2021 HISTORY: Dysphasia A number of thin and thick substances were ingested under the care of the department of speech pathol ogy. There is no evidence of aspiration or penetration. There is no evidence of obstruction. 1 minute 25 seconds fluoroscopy. No images submitted. IMPRESSION: 1. No evidence of aspiration or penetration.
--- NOTE | 2021-02-06 13:40 | P.PN ---
Subjective Progress Note Date: 02/06/21 CHIEF COMPLAINT: COVID-19 pneumonia HISTORY OF PRESENT ILLNESS: Patient in the ICU and is on trach collar. Patient is status post trach and PEG tube placement. Patient is sitting in bed comfortably. Patient seen by speech therapy and passed a swallow evaluation. We'll be starting a regular diet today. Afebrile. Patient is downgraded out of the ICU to [facility] floor PHYSICAL EXAM: VITAL SIGNS: Reviewed. GENERAL: Well-developed in no acute distress. HEENT: No sclera icterus. Extraocular movements grossly intact. Moist buccal mucosa. Head is atraumatic, normocephalic. Tracheostomy site clean dry and intact ABDOMEN: Soft. Nondistended. Nontender. PEG tube site clean dry and intact NEUROLOGIC: Awake ASSESSMENT: 1. Acute hypoxic respiratory failure secondary to COVID-19 pneumonia status post tracheostomy placement 2. Severe protein calorie malnutrition status post PEG tube placement PLAN: -Start regular diet. Patient passed swallow evaluation -Continue supportive care Physician Manager [employer] note has been reviewed by physician. Signing provider agrees with the documented findings, assessment, and plan of care. Objective - Vital Signs Vital signs: Vital Signs Temp 97.9 F 02/05/21 20:00 Pulse 73 02/06/21 09:00 Resp 27 H 02/06/21 09:00 BP 103/59 02/06/21 09:00 Pulse Ox 90 L 02/06/21 09:00 Intake & Output 02/05/21 02/06/21 02/06/21 18:59 06:59 18:59 Intake Total 690 640 50 Output Total 1000 700 Balance -310 -60 50 Weight 97.2 kg 95.6 kg Intake: Tube Feeding 600 550 50 Other 90 90 Output: Urine 1000 700 Other: Voiding Method Urinal Urinal ABP, PAP, CO, CI - Last Documented Arterial Blood Pressure 118/93 - Labs CBC & Chem 7: 02/05/21 02:52 02/05/21 02:52 Labs: Abnormal Lab Results - Last 24 Hours (Table) 02/05/21 02/05/21 02/06/21 Range/Units 17:41 23:56 05:29 POC Glucose (mg/dL) 147 H 127 H 123 H (75-99) mg/dL 02/06/21 Range/Units 12:13 POC Glucose (mg/dL) 165 H (75-99) mg/dL
--- NOTE | 2021-02-06 15:39 | P.PN ---
Subjective Progress Note Date: 02/06/21 HISTORY OF PRESENT ILLNESS This is a 55-year-old male patient of Dr. 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 Patient states he has not been feeling well since Thursday. He said shortness of breath cough is nonproductive along with fever and chills, exertional dyspnea. He denies having any nausea vomiting or diarrhea. He denies any close contacts to known Covid people. He states his temperature is been up to 102.7 at home. He is not vaccinated. Patient presented to [facility] emergency center and found to be febrile at 101.1, heart rate 90, blood pressure 122/80, pulse ox 85% on room air. CBC revealed platelet count of 128. D-dimer 0.82. Sodium 131 otherwise electrolytes and renal function were normal. Blood sugar 147. Troponin negative. Coronavirus PCR positive. Chest x-ray reveals patchy bilateral airspace disease especially in the mid and lower lungs. Correlate for multifocal pneumonia including Covid 19 pneumonia. CTA of the chest was suboptimal study without central acute pulmonary embolism. Bilateral multifocal and confluent groundglass opacities right greater than left and greater in the lower lungs consistent with known Covid 19 infection. Patient is seen today in the emergency center waiting for bed on the [facility] floor, started on Remdesivir, Lovenox, dexamethasone and vitamin supplements, consult with pulmonary medicine. 01/12: Patient is comfortable, however he requires 40 L of oxygen via airvo sats 88-89%, he feels better today compared to his nonrebreather mask yesterday, patient did not sleep well, patient does not have any cough, however he does have shortness of breath. Patient denies any aspiration, appetite is still marginal, patient has insomnia vitals, blood sugar currently is 243, creatinine of 0.98, d-dimer is 0.84, CRP is elevated, LDH is elevated, venous Doppler, shows chronic DVT, left popliteal, in the posterior tibial veins, without any obstruction of flow. No acute DVT identified CTA, shows suboptimal, without central acute pulmonary emboli, has bilateral multifocal and confluent groundglass opacities, right greater than left, lower lobe, consistent with COVID-19 infection and remdesivir discontinued by pulmonary today and is outside of the window for remdesivir 01/13: Patient is on aerosol 14 L, with nonrebreather mask, 15 L, hypoxemia n oted on 88%, worse with coughing, however his nonrebreather mask is very loose. Nurse is worriedwith the turn of events, and requested an ICU transfer, Dr. Canales has seen the patient, and is stable for floor management at this time, patient is not significant tachypnea, and is not tiring out. There is no hemoptysis, and mucus is productive, patient's doing incentive spirometry, up 2 L. 01/14: Patient remains in the intensive care unit, he was intubated this morning as he was desaturating with BiPAP. He has been afebrile, heart rate 73, blood pressure 93/47, pulse ox 90%. CBC is unremarkable. D-dimer 12.04. Sodium 135, creatinine 0.82. LDH 2929, C-reactive protein 5.2. Sputum culture is in progress. He has had good urine output. Chest x-ray reveals no evident convocation from catheters. Bilateral airspace disease. 01/15: Patient remains in the intensive care intubated and on mechanical ventilation with tidal volume 450, FiO2 80, PEEP of 15. Patient has been started on norepinephrine and remains on propofol, heparin drip, Nimbex. Repeat blood work revealed unremarkable CBC. Creatinine 0.88. Capillary blood glucose running between 195 and 215. AST 126, ALT 183, alkaline phosphatase 109. Sputum culture is in progress. Repeat chest x-ray reveals correlate for pneumonia versus edema, ARDS. Patient is continued on vitamin supplements, heparin drip, dexamethasone and Baricitinib. patient remains in intensive care intubated on mechanical ventilator at FiO2 60 percent PEEP respiratory rate of 30 tidal volume 450. Continues to maintain saturations between 94-95% on the current settings. Vitals otherwise stable labs reviewed today WBC is 9.5 hemoglobin 12.4 d-dimer is elevated at 4.98. ABG obtained today suggest pH of 7.4 pO2 53 bicarb 26 on 50% FiO2. Creatinine stable at 0.78 glucose is maintained between 145-190. LDH 1564 CRP is elevated at 4. Patient's inflammatory markers trending down. Patient's vent settings increased to 80% for inadequate oxygenation. Chest x-ray reviewed showed bilateral infiltrate consistent with coronavirus associated pneumonia. Patient continues intubated on propofol 70 bike but patient examined Nimbex 1.25 g daily per minute. Patient to receive 1 dose of Lasix today. Continue to remain on baricitinib day 2 PAtient remains intubaated since . patient continues too remain on assist control, TV 450 , peep 15 and fio2 of 60 %. patient was proned for 16 hours yesterday. CXR was reviewed, COVID pneumonia but no significant change was noted, Will repeat inflammatory markers tomorrow. Vent managment per graphic editor. Patient contines to remain propofol , nimbex. Continue on lovenox, baricitinib, dexamethasone and vit supplement 01/18 patient continues to remain intubated. Covid pneumonia. Is currently on assist control respiratory rate of 30 tidal volume 450 FiO2 of 55% and PEEP of 15. She is currently on heparin drip, propofol and Nimbex. Patient continues to tolerate prone positioning 16 hours overnight. Continues to receive dexamethasone, vitamin supplement, anticoagulation with heparin, baricitinib. Labs are reviewed patient has a hemoglobin stable at 12.2. This morning pH 7.48 PCO2 44 bicarb 32 creatinine 0.73 AST 100 chest x-ray done this morning suggestive of ARDS and pneumonia 01/19 patient continues to remain intubated currently on assist-control vent with a rate of 30 tidal volume 450 FiO2 50 and PEEP of 15. Continues to remain on propofol and Nimbex. Continue heparin drip for anticoagulation. Remains on Baricitinib , vitamin supplementation and dexamethasone. Labs reviewed hemoglobin stable at 12 PTT 53 blood gas obtained today suggest a pH of 7.45 pCO2 46 pO2 69 bicarb 32 BUN 23 creatinine 0.0.8 glucose 122 AST ED ALT 226. inflammation markers ordered for tomorrow last set was obtained on 01/12 01/20 Intubated. Vitals reviewed patient's afebrile pulse of 68 respiratory rate 30 blood pressure. 94/56 oxygen 91% on 50% FiO2. Patient remains on assist control, tidal volume 450 respiratory rate 30 FiO2 of 50% and PEEP of 15. He is currently on Pneumovax at 3 mics per KG per minute propofol at 50 Micro-K to Coumadin and heparin drip. Patient labs are reviewed hemoglobin is 11.7. Arterial blood gas at 50% FiO2 has a pH of 7.47 pO2 of 77 bicarb of 31 BUN 24 creatinine 0.7 LDH [id number] CRP 8.70. CRP is slightly elevated with improvement in LDH. Continue to monitor patient with the goal with treatment on heparin, as dexamethasone, vitamin supplementation and Baricitinib . Blood sugar are well controlled. 01/21: Patient remains intubated and on mechanical ventilation with tidal volume 400, FiO2 40 and PEEP of 16. Patient is on propofol and fentanyl drips. He is on tube feedings to be increased to 26 ML's per hour and tolerating. She he has had 100 250 ML's of urine output per hour. He has been afebrile, heart rate 70, respiratory rate 30, blood pressure 115/64, pulse ox 93%. Repeat blood work reveals WBC 7.4, hemoglobin 12, platelet count 310. D-dimer 1.23. Sodium 134, BUN 24 and creatinine 0.73. Blood sugars are running between 101 and 164. AST 105, ALT 261, alkaline phosphatase 135. LDH 999. C-reactive protein 13.5. Albumin 2.9. Gallbladder ultrasound reveals nonspecific pattern of liver can be seen with hepatic steatitis or hepatocellular disease including hepatitis. The chest x-ray reveals bilateral patchy airspace disease stable. 01/22: Remains in the intensive care unit intubated and on mechanical ventilation with tidal volume 400, FiO2 40, PEEP of 13. Paralytics for pause this morning and patient had significant drop in his pulse ox. He is currently on propofol, fentanyl and Nimbex. He has been afebrile, heart rate 73, blood pressure 99/63, pulse ox 90%. Repeat blood work reveals hemoglobin 11.6. Creatinine 0.81. Blood sugars are running between 98 and 155. AST 85, ALT 260, alkaline phosphatase 132. LDH 954, C-reactive protein 6.8. Repeat chest x-ray reveals bilateral patchy diffuse airspace disease stable. Patient is continued on Baricitinib, Lovenox 40 mg subcu daily, dexamethasone 6 mg IV push and vitamin supplements 01/23: Remains in the intensive care unit on mechanical ventilation with tidal volume 400, FiO2 40 and PEEP of 10. Patient is scheduled for trach and PEG tube placement today. He is currently on propofol, fentanyl and Nimbex. Patient remains afebrile, heart rate 69, respiratory rate 30, blood pressure 120/76, pulse ox 93%. Repeat blood work reveals creatinine is 0.71. WBC 8.3, hemoglobin 12.9. AST 111, ALT 328, alkaline phosphatase 153. Blood sugars have been running between 92 and 193. Sputum culture is showing Corynebacterium species from 01/21 and Aspergillus from 01/14. Repeat chest x-ray reveals bilateral patchy diffuse airspace disease stable. Patient is continued on Baricitinib, Lovenox 40 mg subcu daily, dexamethasone 6 mg IV push and vitamin supplements 01/24: Patient is status post trach and PEG tube done yesterday by Dr. Olivares. Patient is off Nimbex and he has his eyes open but not following commands. Patient's is planning to come in today to see him. He remains on ventilator with tidal volume 300, FiO2 50 and PEEP of 10. Repeat chest x-ray reveals diffuse bilateral infiltrate stable. Antibiotics have been changed to ce fepime and patient started on IV Voriconazole. Patient is continued on dexamethasone, Lovenox and vitamin supplements. WBC 17.2, hemoglobin 12.3. Sodium 130, BUN 21 creatinine 0.83. Total bilirubin 2, AST 54, ALT 248, alkaline phosphatase 132. Capillary blood glucose running between 80 and 193. 01/25: Patient remains in the intensive care unit on mechanical ventilation with tidal volume 400, FiO2 is been increased to 100 and PEEP of 12. Patient is currently on propofol, and was started on vasopressors yesterday and is status post 2 L of IV fluid. Temperature max 101.3. Pulse 87, respiratory rate 33, blood pressure 120/57, pulse ox 95%. cardiac monitor is a sinus rhythm. Repeat blood work reveals WBC 8.3, hemoglobin 11. Sodium 136, chloride 108. Creatinine is 0.83. Calcium 7.9. Total bilirubin 2.7, AST 64, ALT 171, alkaline phosphatase 127. LDH 1187. C-reactive protein 32.6. Blood sugars are running between 133 and 173. Urine culture is showing gram-negative bacilli. Blood culture from 01/24 showing no growth at 24 hours. Repeat chest x-ray reveals clear to megaly with bilateral confluent mid to lower lung opacities consistent with: 19 infection redemonstrated. No significant change. Patient is currently on cefepime, Zyvox and there, so for worsening bilateral pulmonary infiltrate, pneumonia. 01/26: Patient remains in intensive care unit on mechanical ventilation with tidal volume 450, FiO2 80 and PEEP of 12. He has been afebrile for greater than 24 hours. Heart rate 80, blood pressure 132/70, pulse ox 86%. He does have leaking around the tracheostomy site. Repeat blood work reveals WBC 8, hemoglobin 11.1, platelet count 291. Sodium 135, potassium 5.8, creatinine 1.15. Total bilirubin 1.8, AST 101, ALT 194, alkaline phosphatase 135. LDH 1156. C-reactive protein 35.7. Blood sugars are running between 154 and 183. Patient will be started on Levemir 10 units at bedtime. He is continued on cef epime, Zyvox and voriconazole. 01/27: Patient remains intubated and on mechanical ventilation with tidal volume 400 50, FiO2 60, PEEP of 12. Plan is to try and wean oxygen down today. Tracheostomy tube has been manipulated and repositioned. He is not requiring vasopressors, currently on propofol. Chest x-ray reveals no significant interval change. Patient has had good urine output with BUN of 37 creatinine 1.28. Other lab work reveals WBC 9.8, hemoglobin 10.7. D-dimer 5.45. Total bilirubin 1.4, AST 153, ALT 282, alkaline phosphatase 138, LDH 1073. C-reactive protein 16.3. ProCalcitonin 10.1. 01/28: Remains in the intensive care unit, intubated and on mechanical ventilation with tidal volume 450, FiO2 of 60 and PEEP of 10. Patient is responsive, follows a few simple commands. He is currently on antibiotics in the form of cefepime, Zyvox and voriconazole. Patient is also continued on Decadron and Lovenox. Repeat blood work reveals WBC of 10, hemoglobin 10.5. D- dimer 5.63. C-reactive protein 6.2. LDH 1025. Total bilirubin 1.3, AST 95, ALT 250. Patient is on tube feedings at goal. He has had good urine output. Social work will start process for discharge to select specialty with anticipation of him being ready by the end of the week. 01/29 patient is currently in the ICU on with tracheostomy with tidal volume 450 FiO2 decreased to 55 this morning with PEEP of 10. Patient is responsive get agitated once propofol is discontinued. Patient is getting of diarrheal ordered every few hours to help with pain control. Currently stays on antibiotic in the form of cefepime, Zyvox and voriconazole. Urine output is appropriate in her on 75 200 mL per hour. Continues to remain on Decadron and Lovenox. He's currently off norepinephrine off Precedex is off fentanyl. Chest x-ray reviewed has bilateral interstitial infiltrate not changed. Labs reviewed, WBC 11.1 h emoglobin is 11.4 R blood gas this morning on 60% FiO2 suggest EF pO2 of 65 bicarb 26 blood sugar controlled ranging from 156-197. Ventilator management per pulmonary as reduce the FiO2 to 55 . Repeat blood gas in 24 hours. Patient initiating Seroquel 50 twice a day for agitation. Discussion with the nurse was made to reduce the Seroquel to 25 twice a day if patient appears to be sedated 01/30: Patient remains in intensive care unit, intubated status post tracheostomy and PEG tube placement. He is on tidal volume 450, FiO2 of 50 and PEEP is down to 10. He is able to follow some simple commands. Pulmonary medicine is planning to discontinue propofol and switched to Precedex. He is on tube feedings. Social work is following for possible discharge to [facility] by the end of the week. 01/31: Patient remains in the intensive care unit intubated and on mechanical ventilation status post PEG tube and trach. Tidal volume 450, FiO2 50 and PEEP of 10. Patient is on propofol. He is on PEG tube feedings at goal. Patient is continued on Lovenox, Decadron, supplements. Cefepime has been discontinued and he is continued on Zyvox and 4, his old. Social work is following closely for discharge planning however at this time, there are no facilities that will accept the patient. 02/01: Patient is out of Covid isolation. Patient remains on mechanical ventilation with tidal volume 450, FiO2 50, PEEP of 10. Patient is on propofol which is to be weaned off today. He still has Sim catheter with good urine output. Feedings are at goal. Patient has occasional cough, mild edema. Patient is refusing IV Dilaudid for pain. Bowel movements been soft but no diarrhea. Patient is afebrile, heart rate 68, respiratory rate 24, blood pressure 130/75, pulse ox 92%. 02/02: Patient is seen in ICU he is currently out of Covid isolation. Remains on mechanical ventilation with trach. Tidal volume 450, rate of 22 with a PEEP of 8 FiO2 of 50%. Patient is currently on propofol which will continue to be weaned today with the addition of Ativan. Sim catheter in place with good urine output. Feedings are at goal. Does have occasional cough, mild edema. 02/03: Patient is seen in ICU remains on mechanical ventilation with trach. Tidal volume 450 rate of 22 with a PEEP of 6 FiO2 of 45%. Patient is off of propofol. Discussion for transitioned to CPAP machine for today. Sim catheter in place with good urine output. Feedings are at goal. Patient does have occasional cough continues have mild edema. Patient is able to follow commands bilateral upper extremity strength equal. 02/04: Patient remains in the intensive care unit. He is currently on trach collar at 40% FiO2 with pulse ox of 97%. He is afebrile, heart rate in the 50s to 80s, blood pressure 105/69. Repeat blood work reveals WBC 9.9, hemoglobin 11.1, platelet count 230. Sodium 135, potassium 4.3, chloride 101, CO2 29, BUN 40 creatinine 0.96. Blood sugars are running between 125 and 211. Repeat chest x-ray reveals findings consistent with Covid pneumonia consider ARDS. Patient is now slowly progressing and his goal is to get home by [place]. 02/05: Patient remains in the intensive care unit. He is on trach collar at 40% FiO2 with pulse ox of 87 and 95%. Blood pressure 103/66, heart rate in the 50s and 60s, afebrile. Patient is able to mouth words and cough is better today. He is needing to be suctioned for secretions. He is nothing by mouth and on peg tube feedings at goal. Repeat blood work reveals hemoglobin 11.7, WBC 11.2. Sodium 136, potassium 5, chloride 99, CO2 32, BUN 38 and creatinine 1. Blood sugars are running between 125-197. Repeat chest x-ray consistent with history of pneumonia. Patient may move out of the ICU tomorrow. 02/06: A remains in the intensive care unit. His daughter is at the bedside. He has been downgraded to [facility] with telemetry and waiting for bed. He underwent barium swallow today and found no aspiration or penetration. Speech therapy has recommended regular diet with thin liquids. His secretions are much less and he is coughing less. He has been afebrile, heart rate in the 70s, b lood pressure 103/59, pulse ox 9094% on 40% trach collar. Blood sugars are running between 123 and 165. REVIEW OF SYSTEMS. Constitutional: No fever, no chills, no night sweats. No weight change. Reports weakness, no fatigue or lethargy. No daytime sleepiness. EENT: No headache. No blurred vision or double vision, no loss of vision. No loss of Hearing, no ringing in the ears, no dizziness. No nasal drainage or congestion. No epistaxis. No sore throat. Lungs: No shortness of breath, noted cough, noted sputum production, proving. No wheezing. Cardiovascular: No chest pain, no lower extremity edema. No palpitations. No paroxysmal nocturnal dyspnea. No orthopnea. No lightheadedness or dizziness. No syncopal episodes. Abdominal: no abdominal discomfort. No nausea, vomiting. no diarrhea. No constipation. No bloody or tarry stools. no loss of appetite. Genitourinary: No dysuria, increased frequency, urgency. No urinary retention. Musculoskeletal: No myalgias. No muscle weakness, no gait dysfunction, no frequent falls. No back pain. No neck pain. Integumentary: No wounds, no lesions. No rash or pruritus. No unusual bruising. No change in hair or nails. Neurologic: No aphasia. No facial droop. No change in mentation. No head injury. No headache. No paralysis. No paresthesia. Psychiatric: No depression. No anxiety. No mood swings. Endocrine: No abnormal blood sugars. No weight change. No excessive sweating or thirst. PHYSICAL EXAMINATION Gen: This is a 55-year-old male. He is resting in ICU bed, on trach collar at 40% FiO2, status post trach and PEG. Patient's daughter is at bedside. HEENT: Head is atraumatic, normocephalic. Pupils equal, round. Sclerae is anicteric. Tracheostomy intact. NECK: Supple. No JVD. No lymphadenopathy. LUNGS: Crackles bilaterally. No accessory muscle usage. No intercostal retractions. HEART: Regular rate and rhythm. No murmur. ABDOMEN: Soft. Bowel sounds are present. No masses. No tenderness. PEG tube in place. EXTREMITIES: No pedal edema. No calf tenderness. NEUROLOGICAL: Patient is awake, alert and oriented 3, and able to follow commands and answer questions appropriately. ASSESSMENT AND PLAN 1. Acute hypoxic respiratory failure secondary to Covid 19 pneumonia and possible secondary pneumonia, gram-negative and fungal. Patient required intubation 01/14. Patient is status post trach and PEG tube placement 01/[address] Olivares. Patient started on Remdesivir was discontinued by pulmonary, on January 12/2021 started on baricinib 4 mg daily, Baricitinib discontinued on 01/24. Continue dexamethasone 6 mg IV daily, Lovenox 40 mg subcu daily, and vitamin supplements. 2. Acute respiratory distress syndrome secondary to coronavirus pneumonia. 3. Acute septic shock requiring vasopressors. Patient is status post IV fluid bolus and off vasopressors. 4. History of bilateral pulmonary emboli and DVT in 2015. CTA negative for PE. Not on chronic anticoagulation. 5. Acute transaminitis secondary to Covid 19. 6. Generalized osteoarthritis. 7. Degenerative changes in the cervical spine status post fusion of C5-6. 8. 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 9. Elevated liver function tests, transaminitis. 10. Hyperglycemia secondary to steroids. Patient is on NovoLog scale, Levemir 10 units at bedtime added. 11. Severe hyperkalemia, resolved. 12. GI prophylaxis. Protonix. 13. DVT prophylaxis. Lovenox. 14. Acute agitation on ventilator.Seroquel to 100 mg twice daily by graphic editor. 15. Moderate protein calorie malnutrition requiring PEG tube. Patient's diet advanced to regular with thin liquids by mouth. DISCHARGE PLAN Home with Home Care and DME Impression and plan of care have been directed as dictated by the signing physician. Shakila Mosqueda nurse practitioner acting as scribe for signing physician. Objective - Vital Signs Vital signs: Vital Signs Temp 97.9 F 02/05/21 20:00 Pulse 73 02/06/21 09:00 Resp 27 H 02/06/21 09:00 BP 103/59 02/06/21 09:00 Pulse Ox 90 L 02/06/21 09:00 Intake & Output 02/05/21 02/06/21 02/06/21 18:59 06:59 18:59 Intake Total 690 640 50 Output Total 1000 700 Balance -310 -60 50 Weight 97.2 kg 95.6 kg Intake: Tube Feeding 600 550 50 Other 90 90 Output: Urine 1000 700 Other: Voiding Method Urinal Urinal ABP, PAP, CO, CI - Last Documented Arterial Blood Pressure 118/93 - Labs CBC & Chem 7: 02/05/21 02:52 02/05/21 02:52 Labs: Abnormal Lab Results - Last 24 Hours (Table) 02/05/21 02/05/21 02/05/21 Range/Units 12:44 17:41 23:56 POC Glucose (mg/dL) 187 H 147 H 127 H (75-99) mg/dL 02/06/21 Range/Units 05:29 POC Glucose (mg/dL) 123 H (75-99) mg/dL
[2021-02-06 18:29] LABS: Glucose,Whole Blood 129 mg/dL (75-99)
[2021-02-06] MEDS: INSULIN DETEMIR (LEVEMIR) 100 UNIT/ML SYR SQ SCH (21:11)
[2021-02-07] MEDS: LORazepam 2 MG/ML INJ IV PRN (00:53)
[2021-02-07 00:58] LABS: Glucose,Whole Blood 141 mg/dL (75-99)
[2021-02-07] MEDS: INSULIN ASPART (NovoLOG) 100 UNIT/ML VIAL SQ SCH ×4 (02:07→19:30)
[2021-02-07 05:53] LABS: Glucose,Whole Blood 162 mg/dL (75-99)
[2021-02-07] MEDS: CHLORHEXIDINE GLUCONATE 15 ML CUP MUCOUS MEM SCH ×2 (08:26→21:38)
[2021-02-07] MEDS: ASCORBIC ACID 500 MG TAB PO SCH (08:36)
[2021-02-07] MEDS: CHOLECALCIFEROL 25 MCG (1000 IU) TABLET PO SCH (08:36)
[2021-02-07] MEDS: ZINC SULFATE 220 MG CAP PO SCH (08:36)
[2021-02-07] MEDS: DEXAMETHASONE SOD PHOSPHATE 10 MG/ML 1 ML VIAL IVP SCH (08:37)
[2021-02-07] MEDS: PANTOPRAZOLE 40 MG/10 ML VIAL IVP SCH (08:37)
[2021-02-07] MEDS: ENOXAPARIN 40 MG/0.4 ML SYRINGE SQ SCH (08:37)
[2021-02-07] MEDS: QUEtiapine 100 MG TAB PO SCH ×2 (08:37→21:38)
--- NOTE | 2021-02-07 11:30 | P.PN ---
Subjective Progress Note Date: 02/07/21 HISTORY OF PRESENT ILLNESS This is a 55-year-old male patient of Dr. 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 Patient states he has not been feeling well since Thursday. He said shortness of breath cough is nonproductive along with fever and chills, exertional dyspnea. He denies having any nausea vomiting or diarrhea. He denies any close contacts to known Covid people. He states his temperature is been up to 102.7 at home. He is not vaccinated. Patient presented to [facility] emergency center and found to be febrile at 101.1, heart rate 90, blood pressure 122/80, pulse ox 85% on room air. CBC revealed platelet count of 128. D-dimer 0.82. Sodium 131 otherwise electrolytes and renal function were normal. Blood sugar 147. Troponin negative. Coronavirus PCR positive. Chest x-ray reveals patchy bilateral airspace disease especially in the mid and lower lungs. Correlate for multifocal pneumonia including Covid 19 pneumonia. CTA of the chest was suboptimal study without central acute pulmonary embolism. Bilateral multifocal and confluent groundglass opacities right greater than left and greater in the lower lungs consistent with known Covid 19 infection. Patient is seen today in the emergency center waiting for bed on the [facility] floor, started on Remdesivir, Lovenox, dexamethasone and vitamin supplements, consult with pulmonary medicine. 01/12: Patient is comfortable, however he requires 40 L of oxygen via airvo sats 88-89%, he feels better today compared to his nonrebreather mask yesterday, patient did not sleep well, patient does not have any cough, however he does have shortness of breath. Patient denies any aspiration, appetite is still marginal, patient has insomnia vitals, blood sugar currently is 243, creatinine of 0.98, d-dimer is 0.84, CRP is elevated, LDH is elevated, venous Doppler, shows chronic DVT, left popliteal, in the posterior tibial veins, without any obstruction of flow. No acute DVT identified CTA, shows suboptimal, without central acute pulmonary emboli, has bilateral multifocal and confluent groundglass opacities, right greater than left, lower lobe, consistent with COVID-19 infection and remdesivir discontinued by pulmonary today and is outside of the window for remdesivir 01/13: Patient is on aerosol 14 L, with nonrebreather mask, 15 L, hypoxemia n oted on 88%, worse with coughing, however his nonrebreather mask is very loose. Nurse is worriedwith the turn of events, and requested an ICU transfer, Dr. Canales has seen the patient, and is stable for floor management at this time, patient is not significant tachypnea, and is not tiring out. There is no hemoptysis, and mucus is productive, patient's doing incentive spirometry, up 2 L. 01/14: Patient remains in the intensive care unit, he was intubated this morning as he was desaturating with BiPAP. He has been afebrile, heart rate 73, blood pressure 93/47, pulse ox 90%. CBC is unremarkable. D-dimer 12.04. Sodium 135, creatinine 0.82. LDH 2929, C-reactive protein 5.2. Sputum culture is in progress. He has had good urine output. Chest x-ray reveals no evident convocation from catheters. Bilateral airspace disease. 01/15: Patient remains in the intensive care intubated and on mechanical ventilation with tidal volume 450, FiO2 80, PEEP of 15. Patient has been started on norepinephrine and remains on propofol, heparin drip, Nimbex. Repeat blood work revealed unremarkable CBC. Creatinine 0.88. Capillary blood glucose running between 195 and 215. AST 126, ALT 183, alkaline phosphatase 109. Sputum culture is in progress. Repeat chest x-ray reveals correlate for pneumonia versus edema, ARDS. Patient is continued on vitamin supplements, heparin drip, dexamethasone and Baricitinib. patient remains in intensive care intubated on mechanical ventilator at FiO2 60 percent PEEP respiratory rate of 30 tidal volume 450. Continues to maintain saturations between 94-95% on the current settings. Vitals otherwise stable labs reviewed today WBC is 9.5 hemoglobin 12.4 d-dimer is elevated at 4.98. ABG obtained today suggest pH of 7.4 pO2 53 bicarb 26 on 50% FiO2. Creatinine stable at 0.78 glucose is maintained between 145-190. LDH 1564 CRP is elevated at 4. Patient's inflammatory markers trending down. Patient's vent settings increased to 80% for inadequate oxygenation. Chest x-ray reviewed showed bilateral infiltrate consistent with coronavirus associated pneumonia. Patient continues intubated on propofol 70 bike but patient examined Nimbex 1.25 g daily per minute. Patient to receive 1 dose of Lasix today. Continue to remain on baricitinib day 2 PAtient remains intubaated since . patient continues too remain on assist control, TV 450 , peep 15 and fio2 of 60 %. patient was proned for 16 hours yesterday. CXR was reviewed, COVID pneumonia but no significant change was noted, Will repeat inflammatory markers tomorrow. Vent managment per cargo service agent. Patient contines to remain propofol , nimbex. Continue on lovenox, baricitinib, dexamethasone and vit supplement 01/18 patient continues to remain intubated. Covid pneumonia. Is currently on assist control respiratory rate of 30 tidal volume 450 FiO2 of 55% and PEEP of 15. She is currently on heparin drip, propofol and Nimbex. Patient continues to tolerate prone positioning 16 hours overnight. Continues to receive dexamethasone, vitamin supplement, anticoagulation with heparin, baricitinib. Labs are reviewed patient has a hemoglobin stable at 12.2. This morning pH 7.48 PCO2 44 bicarb 32 creatinine 0.73 AST 100 chest x-ray done this morning suggestive of ARDS and pneumonia 01/19 patient continues to remain intubated currently on assist-control vent with a rate of 30 tidal volume 450 FiO2 50 and PEEP of 15. Continues to remain on propofol and Nimbex. Continue heparin drip for anticoagulation. Remains on Baricitinib , vitamin supplementation and dexamethasone. Labs reviewed hemoglobin stable at 12 PTT 53 blood gas obtained today suggest a pH of 7.45 pCO2 46 pO2 69 bicarb 32 BUN 23 creatinine 0.0.8 glucose 122 AST ED ALT 226. inflammation markers ordered for tomorrow last set was obtained on 01/12 01/20 Intubated. Vitals reviewed patient's afebrile pulse of 68 respiratory rate 30 blood pressure. 94/56 oxygen 91% on 50% FiO2. Patient remains on assist control, tidal volume 450 respiratory rate 30 FiO2 of 50% and PEEP of 15. He is currently on Pneumovax at 3 mics per KG per minute propofol at 50 Micro-K to Coumadin and heparin drip. Patient labs are reviewed hemoglobin is 11.7. Arterial blood gas at 50% FiO2 has a pH of 7.47 pO2 of 77 bicarb of 31 BUN 24 creatinine 0.7 LDH [id number] CRP 8.70. CRP is slightly elevated with improvement in LDH. Continue to monitor patient with the goal with treatment on heparin, as dexamethasone, vitamin supplementation and Baricitinib . Blood sugar are well controlled. 01/21: Patient remains intubated and on mechanical ventilation with tidal volume 400, FiO2 40 and PEEP of 16. Patient is on propofol and fentanyl drips. He is on tube feedings to be increased to 26 ML's per hour and tolerating. She he has had 100 250 ML's of urine output per hour. He has been afebrile, heart rate 70, respiratory rate 30, blood pressure 115/64, pulse ox 93%. Repeat blood work reveals WBC 7.4, hemoglobin 12, platelet count 310. D-dimer 1.23. Sodium 134, BUN 24 and creatinine 0.73. Blood sugars are running between 101 and 164. AST 105, ALT 261, alkaline phosphatase 135. LDH 999. C-reactive protein 13.5. Albumin 2.9. Gallbladder ultrasound reveals nonspecific pattern of liver can be seen with hepatic steatitis or hepatocellular disease including hepatitis. The chest x-ray reveals bilateral patchy airspace disease stable. 01/22: Remains in the intensive care unit intubated and on mechanical ventilation with tidal volume 400, FiO2 40, PEEP of 13. Paralytics for pause this morning and patient had significant drop in his pulse ox. He is currently on propofol, fentanyl and Nimbex. He has been afebrile, heart rate 73, blood pressure 99/63, pulse ox 90%. Repeat blood work reveals hemoglobin 11.6. Creatinine 0.81. Blood sugars are running between 98 and 155. AST 85, ALT 260, alkaline phosphatase 132. LDH 954, C-reactive protein 6.8. Repeat chest x-ray reveals bilateral patchy diffuse airspace disease stable. Patient is continued on Baricitinib, Lovenox 40 mg subcu daily, dexamethasone 6 mg IV push and vitamin supplements 01/23: Remains in the intensive care unit on mechanical ventilation with tidal volume 400, FiO2 40 and PEEP of 10. Patient is scheduled for trach and PEG tube placement today. He is currently on propofol, fentanyl and Nimbex. Patient remains afebrile, heart rate 69, respiratory rate 30, blood pressure 120/76, pulse ox 93%. Repeat blood work reveals creatinine is 0.71. WBC 8.3, hemoglobin 12.9. AST 111, ALT 328, alkaline phosphatase 153. Blood sugars have been running between 92 and 193. Sputum culture is showing Corynebacterium species from 01/21 and Aspergillus from 01/14. Repeat chest x-ray reveals bilateral patchy diffuse airspace disease stable. Patient is continued on Baricitinib, Lovenox 40 mg subcu daily, dexamethasone 6 mg IV push and vitamin supplements 01/24: Patient is status post trach and PEG tube done yesterday by Dr. Olivares. Patient is off Nimbex and he has his eyes open but not following commands. Patient's is planning to come in today to see him. He remains on ventilator with tidal volume 300, FiO2 50 and PEEP of 10. Repeat chest x-ray reveals diffuse bilateral infiltrate stable. Antibiotics have been changed to ce fepime and patient started on IV Voriconazole. Patient is continued on dexamethasone, Lovenox and vitamin supplements. WBC 17.2, hemoglobin 12.3. Sodium 130, BUN 21 creatinine 0.83. Total bilirubin 2, AST 54, ALT 248, alkaline phosphatase 132. Capillary blood glucose running between 80 and 193. 01/25: Patient remains in the intensive care unit on mechanical ventilation with tidal volume 400, FiO2 is been increased to 100 and PEEP of 12. Patient is currently on propofol, and was started on vasopressors yesterday and is status post 2 L of IV fluid. Temperature max 101.3. Pulse 87, respiratory rate 33, blood pressure 120/57, pulse ox 95%. traffic monitor specialist is a sinus rhythm. Repeat blood work reveals WBC 8.3, hemoglobin 11. Sodium 136, chloride 108. Creatinine is 0.83. Calcium 7.9. Total bilirubin 2.7, AST 64, ALT 171, alkaline phosphatase 127. LDH 1187. C-reactive protein 32.6. Blood sugars are running between 133 and 173. Urine culture is showing gram-negative bacilli. Blood culture from 01/24 showing no growth at 24 hours. Repeat chest x-ray reveals clear to megaly with bilateral confluent mid to lower lung opacities consistent with: 19 infection redemonstrated. No significant change. Patient is currently on cefepime, Zyvox and there, so for worsening bilateral pulmonary infiltrate, pneumonia. 01/26: Patient remains in intensive care unit on mechanical ventilation with tidal volume 450, FiO2 80 and PEEP of 12. He has been afebrile for greater than 24 hours. Heart rate 80, blood pressure 132/70, pulse ox 86%. He does have leaking around the tracheostomy site. Repeat blood work reveals WBC 8, hemoglobin 11.1, platelet count 291. Sodium 135, potassium 5.8, creatinine 1.15. Total bilirubin 1.8, AST 101, ALT 194, alkaline phosphatase 135. LDH 1156. C-reactive protein 35.7. Blood sugars are running between 154 and 183. Patient will be started on Levemir 10 units at bedtime. He is continued on cef epime, Zyvox and voriconazole. 01/27: Patient remains intubated and on mechanical ventilation with tidal volume 400 50, FiO2 60, PEEP of 12. Plan is to try and wean oxygen down today. Tracheostomy tube has been manipulated and repositioned. He is not requiring vasopressors, currently on propofol. Chest x-ray reveals no significant interval change. Patient has had good urine output with BUN of 37 creatinine 1.28. Other lab work reveals WBC 9.8, hemoglobin 10.7. D-dimer 5.45. Total bilirubin 1.4, AST 153, ALT 282, alkaline phosphatase 138, LDH 1073. C-reactive protein 16.3. ProCalcitonin 10.1. 01/28: Remains in the intensive care unit, intubated and on mechanical ventilation with tidal volume 450, FiO2 of 60 and PEEP of 10. Patient is responsive, follows a few simple commands. He is currently on antibiotics in the form of cefepime, Zyvox and voriconazole. Patient is also continued on Decadron and Lovenox. Repeat blood work reveals WBC of 10, hemoglobin 10.5. D- dimer 5.63. C-reactive protein 6.2. LDH 1025. Total bilirubin 1.3, AST 95, ALT 250. Patient is on tube feedings at goal. He has had good urine output. Social work will start process for discharge to select specialty with anticipation of him being ready by the end of the week. 01/29 patient is currently in the ICU on with tracheostomy with tidal volume 450 FiO2 decreased to 55 this morning with PEEP of 10. Patient is responsive get agitated once propofol is discontinued. Patient is getting of diarrheal ordered every few hours to help with pain control. Currently stays on antibiotic in the form of cefepime, Zyvox and voriconazole. Urine output is appropriate in her on 75 200 mL per hour. Continues to remain on Decadron and Lovenox. He's currently off norepinephrine off Precedex is off fentanyl. Chest x-ray reviewed has bilateral interstitial infiltrate not changed. Labs reviewed, WBC 11.1 h emoglobin is 11.4 R blood gas this morning on 60% FiO2 suggest EF pO2 of 65 bicarb 26 blood sugar controlled ranging from 156-197. Ventilator management per pulmonary as reduce the FiO2 to 55 . Repeat blood gas in 24 hours. Patient initiating Seroquel 50 twice a day for agitation. Discussion with the nurse was made to reduce the Seroquel to 25 twice a day if patient appears to be sedated 01/30: Patient remains in intensive care unit, intubated status post tracheostomy and PEG tube placement. He is on tidal volume 450, FiO2 of 50 and PEEP is down to 10. He is able to follow some simple commands. Pulmonary medicine is planning to discontinue propofol and switched to Precedex. He is on tube feedings. Social work is following for possible discharge to [facility] by the end of the week. 01/31: Patient remains in the intensive care unit intubated and on mechanical ventilation status post PEG tube and trach. Tidal volume 450, FiO2 50 and PEEP of 10. Patient is on propofol. He is on PEG tube feedings at goal. Patient is continued on Lovenox, Decadron, supplements. Cefepime has been discontinued and he is continued on Zyvox and 4, his old. Social work is following closely for discharge planning however at this time, there are no facilities that will accept the patient. 02/01: Patient is out of Covid isolation. Patient remains on mechanical ventilation with tidal volume 450, FiO2 50, PEEP of 10. Patient is on propofol which is to be weaned off today. He still has Sim catheter with good urine output. Feedings are at goal. Patient has occasional cough, mild edema. Patient is refusing IV Dilaudid for pain. Bowel movements been soft but no diarrhea. Patient is afebrile, heart rate 68, respiratory rate 24, blood pressure 130/75, pulse ox 92%. 02/02: Patient is seen in ICU he is currently out of Covid isolation. Remains on mechanical ventilation with trach. Tidal volume 450, rate of 22 with a PEEP of 8 FiO2 of 50%. Patient is currently on propofol which will continue to be weaned today with the addition of Ativan. Sim catheter in place with good urine output. Feedings are at goal. Does have occasional cough, mild edema. 02/03: Patient is seen in ICU remains on mechanical ventilation with trach. Tidal volume 450 rate of 22 with a PEEP of 6 FiO2 of 45%. Patient is off of propofol. Discussion for transitioned to CPAP machine for today. Sim catheter in place with good urine output. Feedings are at goal. Patient does have occasional cough continues have mild edema. Patient is able to follow commands bilateral upper extremity strength equal. 02/04: Patient remains in the intensive care unit. He is currently on trach collar at 40% FiO2 with pulse ox of 97%. He is afebrile, heart rate in the 50s to 80s, blood pressure 105/69. Repeat blood work reveals WBC 9.9, hemoglobin 11.1, platelet count 230. Sodium 135, potassium 4.3, chloride 101, CO2 29, BUN 40 creatinine 0.96. Blood sugars are running between 125 and 211. Repeat chest x-ray reveals findings consistent with Covid pneumonia consider ARDS. Patient is now slowly progressing and his goal is to get home by [place]. 02/05: Patient remains in the intensive care unit. He is on trach collar at 40% FiO2 with pulse ox of 87 and 95%. Blood pressure 103/66, heart rate in the 50s and 60s, afebrile. Patient is able to mouth words and cough is better today. He is needing to be suctioned for secretions. He is nothing by mouth and on peg tube feedings at goal. Repeat blood work reveals hemoglobin 11.7, WBC 11.2. Sodium 136, potassium 5, chloride 99, CO2 32, BUN 38 and creatinine 1. Blood sugars are running between 125-197. Repeat chest x-ray consistent with history of pneumonia. Patient may move out of the ICU tomorrow. 02/06: A remains in the intensive care unit. His daughter is at the bedside. He has been downgraded to [facility] with telemetry and waiting for bed. He underwent barium swallow today and found no aspiration or penetration. Speech therapy has recommended regular diet with thin liquids. His secretions are much less and he is coughing less. He has been afebrile, heart rate in the 70s, b lood pressure 103/59, pulse ox 9094% on 40% trach collar. Blood sugars are running between 123 and 165. 02/07: Patient is today on the cardiac stepdown unit. He is on trach collar at 80% FiO2 with pulse ox of 91%. He has been afebrile, heart rate 107, blood pressure 101/67. Patient a 25% of lunch and supper yesterday, he is enjoying being able to eat. He remains on PEG tube feedings as well . The patient has been approved for Medicaid and social work will discuss option of ECF with family. We will add in a consult for Dr. Nuñez for inpatient rehab. REVIEW OF SYSTEMS. Constitutional: No fever, no chills, no night sweats. No weight change. Reports weakness, reports fatigue or lethargy. No daytime sleepiness. EENT: No headache. No blurred vision or double vision, no loss of vision. No loss of Hearing, no ringing in the ears, no dizziness. No nasal drainage or congestion. No epistaxis. No sore throat. Lungs: No shortness of breath, noted occasional cough, noted sputum production, proving. No wheezing. Cardiovascular: No chest pain, no lower extremity edema. No palpitations. No paroxysmal nocturnal dyspnea. No orthopnea. No lightheadedness or dizziness. No syncopal episodes. Abdominal: no abdominal discomfort. No nausea, vomiting. no diarrhea. No constipation. No bloody or tarry stools. no loss of appetite. Genitourinary: No dysuria, increased frequency, urgency. No urinary retention. Musculoskeletal: No myalgias. No muscle weakness, no gait dysfunction, no frequent falls. No back pain. No neck pain. Integumentary: No wounds, no lesions. No rash or pruritus. No unusual bruising. No change in hair or nails. Neurologic: No aphasia. No facial droop. No change in mentation. No head injury. No headache. No paralysis. No paresthesia. Psychiatric: No depression. No anxiety. No mood swings. Endocrine: No abnormal blood sugars. No weight change. No excessive sweating or thirst. PHYSICAL EXAMINATION Gen: This is a 55-year-old male. He is resting in a recliner, on trach collar at 40% FiO2, status post trach and PEG. HEENT: Head is atraumatic, normocephalic. Pupils equal, round. Sclerae is anicteric. Tracheostomy intact. NECK: Supple. No JVD. No lymphadenopathy. LUNGS: Crackles bilaterally. No accessory muscle usage. No intercostal retractions. HEART: Regular rate and rhythm. No murmur. ABDOMEN: Soft. Bowel sounds are present. No masses. No tenderness. PEG tube in place. EXTREMITIES: No pedal edema. No calf tenderness. NEUROLOGICAL: Patient is awake, alert and oriented 3, and able to follow commands and answer questions appropriately. ASSESSMENT AND PLAN 1. Acute hypoxic respiratory failure secondary to Covid 19 pneumonia and possible secondary pneumonia, gram-negative and fungal. Patient required intu bation 01/14. Patient is status post trach and PEG tube placement 01/[address] Olivares. Patient started on Remdesivir was discontinued by pulmonary, on January 12/2021 started on baricinib 4 mg daily, Baricitinib discontinued on 01/24. Continue dexamethasone 6 mg IV daily, Lovenox 40 mg subcu daily, and vitamin supplements. consult with Dr. Nuñez for IP rehab. 2. Acute respiratory distress syndrome secondary to coronavirus pneumonia. 3. Acute septic shock requiring vasopressors. Patient is status post IV fluid bolus and off vasopressors. 4. History of bilateral pulmonary emboli and DVT in 2016. CTA negative for PE. Not on chronic anticoagulation. 5. Acute transaminitis secondary to Covid 19. 6. Generalized osteoarthritis. 7. Degenerative changes in the cervical spine status post fusion of C5-6. 8. 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 9. Elevated liver function tests, transaminitis. 10. Hyperglycemia secondary to steroids. Patient is on NovoLog scale, Levemir 10 units at bedtime added. 11. Severe hyperkalemia, resolved. 12. GI prophylaxis. Protonix. 13. DVT prophylaxis. Lovenox. 14. Acute agitation on ventilator.Seroquel to 100 mg twice daily by cargo service agent. 15. Moderate protein calorie malnutrition requiring PEG tube. Patient's diet advanced to regular with thin liquids by mouth, continue PEG tube feedings until oral diet is sufficient. DISCHARGE PLAN Home with Home Care and DME or possible subacute rehab or IP rehab Impression and plan of care have been directed as dictated by the signing physician. Shakila Mosqueda nurse practitioner acting as scribe for signing physician. Objective - Vital Signs Vital signs: Vital Signs Temp 99.1 F 02/07/21 08:33 Pulse 107 H 02/07/21 08:33 Resp 21 02/07/21 08:33 BP 101/67 02/07/21 08:33 Pulse Ox 91 L 02/07/21 08:47 Intake & Output 02/06/21 02/07/21 02/07/21 18:59 06:59 18:59 Intake Total 560 118 Output Total 1000 400 Balance -440 -400 118 Weight 91 kg Intake: Oral 118 Tube Feeding 500 Other 60 Output: Urine 1000 400 Other: Voiding Method Urinal # Voids 1 ABP, PAP, CO, CI - Last Documented Arterial Blood Pressure 118/93 - Labs CBC & Chem 7: 02/05/21 02:52 02/05/21 02:52 Labs: Abnormal Lab Results - Last 24 Hours (Table) 02/06/21 02/06/21 02/07/21 Range/Units 12:13 18:28 00:47 POC Glucose (mg/dL) 165 H 129 H 141 H (75-99) mg/dL 02/07/21 Range/Units 05:50 POC Glucose (mg/dL) 162 H (75-99) mg/dL
--- NOTE | 2021-02-07 11:48 | P.CONS ---
History of Present Illness - Chief Complaint Medical debility - History of Present Illness I had the opportunity to see patient for inpatient rehab consultation with regard to medical debility. Patient admitted to [facility] January 11 with acute respiratory failure related to Covid pneumonia. Workup in including chest CTA and Doppler which demonstrated bilateral PE and DVT. Patient with nausea, emesis, diarrhea. Followed by Dr. Steen for the pneumonia. The patient also required tracheostomy for the respiratory failure and control. Chest serial chest x-rays followed. Speech therapy did assess swallowing or aspiration noted inpatient on regular diet, thin liquid. He prescribed. Previous functional history as elicited from patient: 55-year-old right-handed white male who is lives and 2 floor home. Review of Systems Review of systems: ENT: Denies sneezes or discharge. Eyes: Denies discharge or photophobia. Cardiac: Denies chest pain or palpitation. Pulmonary: At least moderate shortness of breath. Gastrointestinal: Denies nausea, emesis, constipation, diarrhea. Genitourinary: Denies discharge or frequency. Musculoskeletal: Denies muscle or bone aches. Neurologic: Generalized weakness. Endocrine: Denies shakes or sweats. Oncology: Denies cancers. Dermatologic: Denies rash, itching, pruritus. ALLERGY/immunology: Denies sneezes, rashes. Past Medical History Past Medical History: Deep Vein Thrombosis (DVT), Osteoarthritis (OA) Additional Past Medical History / Comment(s): PAULETTE PE, DVT. ASBESTOS EXPOSURE, HIATAL HERNIA, MIGRAINES TRIGGERED BY MSG. KIDNEY STONES, PASSED OWN OWN. 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 [employer] Smoking Status: Never smoker Past Alcohol Use History: None Reported Past Drug Use History: None Reported - Past Family History Father History Unknown: Yes Additional Family Medical History / Comment(s): PT WAS RAISED BY STEP FATHER Mother Family Medical History: Diabetes Mellitus, Hypertension Brother(s) Family Medical History: No Reported History Sister(s) Family Medical History: No Reported History Daughter(s) Family Medical History: Asthma Medications and Allergies Home Medications Medication Instructions Recorded Confirmed Type Betamethasone Dipropionate 1 applic TOPICAL BID 01/11/21 01/11/21 History [Betamethasone Dipropionate 0.05%] Allergies Allergy/AdvReac Type Severity Reaction Status Date / Time monosodium glutamate [MSG] AdvReac MIGRAINES Verified 01/11/21 09:54 Physical Exam Vitals: Vital Signs Temp Pulse Resp BP Pulse Ox 02/07/21 08:47 91 L 02/07/21 08:33 99.1 F 107 H 21 101/67 89 L 02/07/21 04:00 98.8 F 93 20 105/71 90 L 02/07/21 00:00 99 F 102 H 20 90/57 91 L 02/06/21 20:00 99.3 F 96 18 115/73 91 L 02/06/21 19:30 92 L 02/06/21 17:25 100.1 F H 83 18 108/72 86 L 02/06/21 15:50 90 L 02/06/21 14:00 97.9 F 80 15 108/72 90 L Intake and Output 02/06/21 02/07/21 02/07/21 22:59 06:59 14:59 Intake Total 510 118 Output Total 1000 400 325 Balance -490 -400 -207 Intake: Oral 118 Tube Feeding 450 Other 60 Output: Urine 1000 400 325 Other: Voiding Method Urinal Urinal # Voids 1 Weight 91 kg Skin: Good color, texture, turgor. General: Medium build and comfortable appearance. Head: Normocephalic, atraumatic. Eyes: Symmetric. Pupils equal round. Ears: Symmetric. Hearing within normal limits. Mouth: Clear. Neck: Supple. Carotid without bruit. Cardiac: Regular rate and rhythm. Lungs: Clear anteriorly and posteriorly. Abdomen: Soft active nontender. Extremities: Normal tone. Neurological: Mental status: Alert, cooperative, pleasant. Cranial nerves: Symmetric facial tone and trapezius. Motor: Can actively elevate all 4 limbs and legs at best antigravity and arms slightly better. Sensation: Intact throughout. DTRs: Symmetric and equal throughout. Mobility: Requires assistance for bedside transfer to Piper chair. Results CBC & Chem 7: 02/05/21 02:52 02/05/21 02:52 Labs: Abnormal Lab Results - Last 24 Hours (Table) 02/06/21 02/06/21 02/07/21 Range/Units 12:13 18:28 00:47 POC Glucose (mg/dL) 165 H 129 H 141 H (75-99) mg/dL 02/07/21 Range/Units 05:50 POC Glucose (mg/dL) 162 H (75-99) mg/dL Assessment and Plan (1) COVID Current Visit: Yes Status: Acute Code(s): U07.1 - COVID-19 SNOMED Code(s): 233747270 (2) Hypoxia Current Visit: Yes Status: Acute Code(s): R09.02 - HYPOXEMIA SNOMED Code(s): 826544977 (3) Bilateral pulmonary embolism Current Visit: No Status: Acute Onset Date: 03/20/15 Code(s): I26.99 - OTHER PULMONARY EMBOLISM WITHOUT ACUTE COR PULMONALE SNOMED Code(s): 40585237 (4) Deep vein thrombosis of lower extremity Current Visit: No Status: Acute Onset Date: 03/20/15 Code(s): I82.409 - ACUTE EMBOLISM AND THOMBOS UNSP DEEP VN UNSP LOWER EXTREMITY SNOMED Code(s): 669662645 Plan: Comments and plan: At this time speech is ongoing. PT and OT prescribed but may not have been able initiate therapy yet. At this time rehab prognosis guarded. Noted previous inpatient rehab waivers for Covid pneumonia are no longer applied consistently. We'll follow closely with yourself.
[2021-02-07 12:00] LABS: Glucose,Whole Blood 209 mg/dL (75-99)
--- NOTE | 2021-02-07 12:48 | P.PN ---
Subjective Progress Note Date: 02/07/21 Principal diagnosis: COVID-19 pneumonia The patient is seen today 02/07/2021 in follow-up on the selective care unit. He is currently sitting up in a chair at the bedside. Awake and alert in no acute distress. He is on trach collar at 80% FiO2 with O2 saturation 89%. He did pass a swallow evaluation yesterday with no evidence of aspiration or penetration. He has been working with physical therapy. He's been afebrile. Hemodynamically stable. Being evaluated for possible inpatient rehabilitation. He remains on Decadron, Lovenox, vitamin supplements. Objective - Vital Signs Vital signs: Vital Signs Temp 99.1 F 02/07/21 08:33 Pulse 107 H 02/07/21 08:33 Resp 21 02/07/21 08:33 BP 101/67 02/07/21 08:33 Pulse Ox 91 L 02/07/21 08:47 Intake & Output 02/06/21 02/07/21 02/07/21 18:59 06:59 18:59 Intake Total 560 118 Output Total 1000 400 325 Balance -440 -400 -207 Weight 91 kg Intake: Oral 118 Tube Feeding 500 Other 60 Output: Urine 1000 400 325 Other: Voiding Method Urinal Urinal # Voids 1 ABP, PAP, CO, CI - Last Documented Arterial Blood Pressure 118/93 - Exam GENERAL EXAM: Alert, pleasant 55-year-old gentleman, on 80% FiO2 via trach collar, in a chair at the bedside, dyspneic with minimal exertion. HEAD: Normocephalic. EYES: Normal reaction of pupils, equal size. NOSE: Clear with pink turbinates. THROAT: No erythema or exudates. NECK: No masses, no JVD. CHEST: No chest wall deformity. LUNGS: Equal air entry with coarse crackles in the bilateral bases. CVS: S1 and S2 normal with no audible murmur, regular rhythm. ABDOMEN: No hepatosplenomegaly, normal bowel sounds, no guarding or rigidity. SPINE: No scoliosis or deformity SKIN: No rashes CENTRAL NERVOUS SYSTEM: No focal deficits, tone is normal in all 4 extremities. EXTREMITIES: There is no peripheral edema. No clubbing, no cyanosis. Peripheral pulses are intact. - Labs CBC & Chem 7: 02/05/21 02:52 02/05/21 02:52 Labs: Abnormal Lab Results - Last 24 Hours (Table) 02/06/21 02/07/21 02/07/21 Range/Units 18:28 00:47 05:50 POC Glucose (mg/dL) 129 H 141 H 162 H (75-99) mg/dL 02/07/21 Range/Units 11:58 POC Glucose (mg/dL) 209 H (75-99) mg/dL Assessment and Plan Assessment: 1 Acute hypoxic respiratory failure related to COVID-19 pneumonia, onset of symptoms was 5 days prior to presentation. Patient is not vaccinated against COVID-19, Remdesivir started on 01/11/2021 however the patient's oxygen requirements have gone up. Remdesivir we'll be discontinued today 01/12/2021 and the patient will be initiated on Baricitinib. He transferred to the intensive care unit on 01/13/2021. He's had a very extended stay currently at 27 days. He is down to trach collar. He is an 80% FiO2 with O2 saturation 89%. 2 Previous history of bilateral pulmonary emboli and left leg DVT back in 2015, currently not on any anticoagulation on a regular basis. Doppler does reveal a chronic left leg DVT but no acute DVTs bilaterally 3 History of osteoarthritis 4 Nonsmoker Plan: The patient was seen and evaluated Stable and receiving a trach collar 80% FiO2 Treat the FiO2 as tolerated Awaiting possible correction facility versus inpatient rehabilitation We will continue to follow I, the cosigning physician, performed a history & physical examination of the patient. Lungs sounds crackles in the posterior bases. Maintaining O2 saturations in the 90s on 80% trach collar. I discussed the assessment and plan of care with my nurse practitioner, Lakeshia Goldstein. I attest to the above note as dictated by her.
--- NOTE | 2021-02-07 15:29 | P.PN ---
Subjective Progress Note Date: 02/07/21 CHIEF COMPLAINT: COVID-19 pneumonia HISTORY OF PRESENT ILLNESS: Patient was transferred to cardiac floor. He is still requiring trach collar. He had evidence of urinary retention and required to be straight cathed. He is tolerating tube feeds. He is able to eat small amounts of food without difficulty swallowing. He is having bowel movements. Afebrile PHYSICAL EXAM: VITAL SIGNS: Reviewed. GENERAL: Well-developed in no acute distress. HEENT: No sclera icterus. Extraocular movements grossly intact. Moist buccal mucosa. Head is atraumatic, normocephalic. Tracheostomy site clean dry and int act ABDOMEN: Soft. Nondistended. Nontender. PEG tube site clean dry and intact NEUROLOGIC: Awake ASSESSMENT: 1. Acute hypoxic respiratory failure secondary to COVID-19 pneumonia status post tracheostomy placement 2. Severe protein calorie malnutrition status post PEG tube placement PLAN: -Continue regular diet -Continue TPN until oral intake increases -Continue supportive care Physician Scroll Machine Operator note has been reviewed by physician. Signing provider agrees with the documented findings, assessment, and plan of care. Objective - Vital Signs Vital signs: Vital Signs Temp 99.1 F 02/07/21 12:00 Pulse 102 H 02/07/21 12:00 Resp 20 02/07/21 12:00 BP 105/70 02/07/21 12:00 Pulse Ox 92 L 02/07/21 12:00 Intake & Output 02/06/21 02/07/21 02/07/21 18:59 06:59 18:59 Intake Total 560 243 Output Total 1000 400 325 Balance -440 -400 -82 Weight 91 kg Intake: Oral 243 Tube Feeding 500 Other 60 Output: Urine 1000 400 325 Other: Voiding Method Urinal Urinal # Voids 1 ABP, PAP, CO, CI - Last Documented Arterial Blood Pressure 118/93 - Labs CBC & Chem 7: 02/05/21 02:52 02/05/21 02:52 Labs: Abnormal Lab Results - Last 24 Hours (Table) 02/06/21 02/07/21 02/07/21 Range/Units 18:28 00:47 05:50 POC Glucose (mg/dL) 129 H 141 H 162 H (75-99) mg/dL 02/07/21 Range/Units 11:58 POC Glucose (mg/dL) 209 H (75-99) mg/dL
[2021-02-07] MEDS: HYDROmorphone 1 MG/ML 1 ML SYRINGE IVP PRN (17:09)
[2021-02-07 18:24] LABS: Glucose,Whole Blood 146 mg/dL (75-99)
[2021-02-07] MEDS: ACETAMINOPHEN TAB 325 MG TAB PO PRN (21:37)
[2021-02-07] MEDS: INSULIN DETEMIR (LEVEMIR) 100 UNIT/ML SYR SQ SCH (21:38)
[2021-02-08 00:16] LABS: Glucose,Whole Blood 114 mg/dL (75-99)
[2021-02-08] MEDS: INSULIN ASPART (NovoLOG) 100 UNIT/ML VIAL SQ SCH ×5 (00:27→23:19)
[2021-02-08] MEDS: ACETAMINOPHEN TAB 325 MG TAB PO PRN ×2 (03:46→09:23)
[2021-02-08 06:55] LABS: Glucose,Whole Blood 147 mg/dL (75-99)
[2021-02-08 09:17] LABS: Basophils # (A) 0.1 k/uL (0-0.2); Basophils % (A) 0 %; Eosinophils # (A) 0.8 k/uL (0-0.7); Eosinophils % (A) 4 %; HCT 37.7 % (39.0-53.0); Lymphocytes % (A) 5 %; MCH 30.5 pg (25.0-35.0); MCHC 31.8 g/dL (31.0-37.0); MCV 95.9 fL (80.0-100.0); Monocytes # (A) 0.7 k/uL (0-1.0); Monocytes % (A) 4 %; Neutrophils % (A) 86 %; Platelet Count 244 k/uL (150-450); RBC 3.93 m/uL (4.30-5.90); RDW 14.3 % (11.5-15.5); WBC 18.7 k/uL (3.8-10.6)
[2021-02-08] MEDS: ZINC SULFATE 220 MG CAP PO SCH (09:22)
[2021-02-08] MEDS: CHOLECALCIFEROL 25 MCG (1000 IU) TABLET PO SCH (09:22)
[2021-02-08] MEDS: ENOXAPARIN 40 MG/0.4 ML SYRINGE SQ SCH (09:22)
[2021-02-08] MEDS: ASCORBIC ACID 500 MG TAB PO SCH (09:22)
[2021-02-08] MEDS: PANTOPRAZOLE 40 MG/10 ML VIAL IVP SCH (09:22)
[2021-02-08] MEDS: QUEtiapine 100 MG TAB PO SCH (09:22)
[2021-02-08] MEDS: DEXAMETHASONE SOD PHOSPHATE 10 MG/ML 1 ML VIAL IVP SCH (09:22)
[2021-02-08 09:28] LABS: ALT 80 U/L (4-49); AST 39 U/L (17-59); African American GFR (CKD) >90 (>60 ml/min/1.73 sqM); Albumin 3.4 g/dL (3.5-5.0); Alkaline Phosphatase 137 U/L (38-126); Anion Gap 9 mmol/L; Blood Urea Nitrogen 34 mg/dL (9-20); Carbon Dioxide 28 mmol/L (22-30); Chloride 101 mmol/L (98-107); Glucose 151 mg/dL (74-99); Non-African American GFR(CKD) 83 (>60 ml/min/1.73 sqM); Potassium 4.2 mmol/L (3.5-5.1); Sodium 138 mmol/L (137-145); Total Bilirubin 1.2 mg/dL (0.2-1.3); Total Protein 6.4 g/dL (6.3-8.2)
[2021-02-08] MEDS: ARTIFICIAL TEARS-HYPROMELLOSE DROPS 15 ML BTL BOTH EYES SCH (11:00)
[2021-02-08] MEDS: CISATRACURIUM 200 MG in SODIUM CHLORIDE 0.9% 180 ML IV SCH (11:00)
--- NOTE | 2021-02-08 11:29 | P.PN ---
Subjective Progress Note Date: 02/08/21 CHIEF COMPLAINT: COVID-19 pneumonia HISTORY OF PRESENT ILLNESS: Patient currently on cardiac floor. He is on trach collar. He has passed a swallow eval. He has eaten small amount of regular food. Still on the TPN for nutrition support. He is having bowel movements. Denies any nausea or vomiting. No residual reported through tube feeds. Afebrile. WBC is up to 18.7 Hgb is 12 PHYSICAL EXAM: VITAL SIGNS: Reviewed. GENERAL: Well-developed in no acute distress. HEENT: No sclera icterus. Extraocular movements grossly intact. Moist buccal mucosa. Head is atraumatic, normocephalic. Tracheostomy site clean dry and intact ABDOMEN: Soft. Nondistended. Nontender. PEG tube site clean dry and intact. Peg tube at 3cm felicity NEUROLOGIC: Awake ASSESSMENT: 1. Acute hypoxic respiratory failure secondary to COVID-19 pneumonia status post tracheostomy placement 2. Severe protein calorie malnutrition status post PEG tube placement PLAN: -Continue regular diet -Continue TPN until oral intake increases -Continue supportive care -Continue to increase activity Physician Biofuels Technology Development Manager note has been reviewed by physician. Signing provider agrees with the documented findings, assessment, and plan of care. Objective - Vital Signs Vital signs: Vital Signs Temp 102.1 F H 02/08/21 08:00 Pulse 97 02/08/21 08:00 Resp 20 02/08/21 08:00 BP 109/69 02/08/21 08:00 Pulse Ox 96 02/08/21 08:00 Intake & Output 02/07/21 02/08/21 02/08/21 18:59 06:59 18:59 Intake Total 243 510 Output Total 325 200 Balance -82 310 Weight 90.5 kg 90.5 kg Intake: Oral 243 360 Tube Feeding 150 Output: Urine 325 200 Other: Voiding Method Urinal Urinal Urinal # Bowel Movements 1 ABP, PAP, CO, CI - Last Documented Arterial Blood Pressure 118/93 - Labs CBC & Chem 7: 02/08/21 08:50 02/08/21 08:50 Labs: Abnormal Lab Results - Last 24 Hours (Table) 02/07/21 02/07/21 02/08/21 Range/Units 11:58 18:03 00:13 WBC (3.8-10.6) k/uL RBC (4.30-5.90) m/uL Hgb (13.0-17.5) gm/dL Hct (39.0-53.0) % Neutrophils # (1.3-7.7) k/uL Eosinophils # (0-0.7) k/uL BUN (9-20) mg/dL Glucose (74-99) mg/dL POC Glucose (mg/dL) 209 H 146 H 114 H (75-99) mg/dL ALT (4-49) U/L Alkaline Phosphatase (38-126) U/L Albumin (3.5-5.0) g/dL 02/08/21 02/08/21 02/08/21 Range/Units 06:41 08:50 08:50 WBC 18.7 H (3.8-10.6) k/uL RBC 3.93 L (4.30-5.90) m/uL Hgb 12.0 L (13.0-17.5) gm/dL Hct 37.7 L (39.0-53.0) % Neutrophils # 16.0 H (1.3-7.7) k/uL Eosinophils # 0.8 H (0-0.7) k/uL BUN 34 H (9-20) mg/dL Glucose 151 H (74-99) mg/dL POC Glucose (mg/dL) 147 H (75-99) mg/dL ALT 80 H (4-49) U/L Alkaline Phosphatase 137 H (38-126) U/L Albumin 3.4 L (3.5-5.0) g/dL
[2021-02-08 12:07] LABS: Glucose,Whole Blood 199 mg/dL (75-99)
--- NOTE | 2021-02-08 12:16 | P.PN ---
Subjective Progress Note Date: 02/08/21 Principal diagnosis: Coronavirus associated pneumonia. COVID-19 pneumonia 55-year-old male patient of Dr. Palm, with a past medical history of bilateral pulmonary emboli, and left leg DVT, migraine headaches, hiatal hernia, inguinal hernias, osteoarthritis with previous history of right shoulder arthroscopy, cervical fusion, nonsmoker, who came into the emergency department on 01/11/2021 for evaluation of shortness of breath, fatigue, cough, fever. His symptoms started on Thursday01/11/2021 and became progressive. Patient is not vaccinated against COVID-19. Chest x-ray today shows patchy bilateral airspace disease especially in the mid and lower lungs. COVID-19 PCR was negative, his white count is 6.1, hemoglobin is 16.8, platelet count is 128, lymphocyte count is 0.9, d-dimer is 0.82, coagulation profile was within normal limits, sodium is 131, the rest of electrolytes are within normal limits, troponin was less than 0.012, LFTs were within normal limits, lactic acid was 1.1. CT angiogram of the chest showed suboptimal study without central acute pulmonary embolism, and bilateral multifocal and confluent groundglass opacities right greater than left and greater in the lower lungs consistent with history of COVID-19 infection. Pulse ox was 85%, patient was febrile on presentation with a temp of 101.1F, he was placed on 3 L of supplemental oxygen, he is awake and alert, does not appear to be in any acute distress, he is ambulating, and does have exertional dyspnea but no acute distress. He was started on Decadron 10 mg IV push 1, prophyla ctic Lovenox, and multivitamins The patient is seen today 01/12/2021 in follow-up on the regular medical floor. He is currently sitting up in a chair at the bedside. His oxygen requirements to go up. He is currently on a 15 L nonrebreather mask with O2 saturation 91%. He was on 4 L yesterday. He is having more shortness of breath. 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 D-dimer 0.84. LDH 684. C-reactive protein 7.0. He is on day #2 of Remdesivir. He remains on Decadron, Lovenox, vitamin supplements. 0.9 normal saline at 130 ML's per hour. The patient is seen today 01/13/2021 in follow-up on the regular medical floor. He is currently sitting up in a chair at the bedside. Awake and alert. He did have some issues with worsening shortness of breath on minimal exertion. He is on the AirVo high flow oxygen at 4 L and 90% FiO2 plus a nonrebreather mask to maintain O2 saturations in the high 80s and low 90s. He's been afebrile. Hemodynamically stable. White count 8.8. Hemoglobin 13.9. Lymphocytes 0.9. Sodium 137. Potassium 4.1. Creatinine 0.4. He is continued on Baricitinib, Decadron, Lovenox, vitamin supplements. Progress note dated 01/14/2021. This morning, the patient was on BiPAP, with settings of 14/6 and 100%. He change IPAP of 14-16. The patient's getting saline at 130 mL an hour, and Precedex at 0.4 mcg/kg/h. I did speak to the patient about the possibility of intubation and mechanical ventilation. The patient was also placed on IV heparin, given his prior history of DVT and pulmonary embolism. White count 7.4, hemoglobin 14.4, hematocrit 43.8, platelet count 165,000. D-dimer was 12.04. Sodium 135, potassium 4.7, chlorides 107, CO2 23, anion gap 5, BUN 24, and creatinine 0.82. LDH was 2929. C-reactive protein was 5.2. The patient's chest x-ray shows diffuse bilateral infiltrates. This patient was admitted to the hospital on January 11, and moved to the intensive care unit on January 13 for worsening hypoxemic respiratory failure. Progress note dated 01/15/2021. Yesterday, the patient was intubated and mechanically ventilated, after developing worsening hypoxemic respiratory failure. A central line was placed, as well as an art line. The patient remains on mechanical ventilator. Currently, he's on the volume assist control mode, rate 26, tidal volume 450, FiO2 100%, and PEEP of 15. Arterial blood gases show a PaO2 of 129, pCO2 58, and a pH is 7.24. With that, the rate is increased to 30 breaths per minute, and the FiO2 was reduced down to 80%. The patient remains on propofol, at 50 mcg/kg/m, Nimbex, at 2 mcg/kg/m, and norepinephrine at 0.03 mcg/kg/m. The patient's also getting saline at 130 mL an hour, IV heparin, and vital, at 23 mL an hour, which is goal. White count 9.5, hemoglobin 13.4, hematocrit 42.3, and platelet count 205,000. PTT is 119. Sodium 140, potassium 4.9, chlorides 111, CO2 25, anion gap 4, BUN 20, creatinine 0.88. The patient's albumin was 2.7. AST was 126 with an ALT of 183. The patient's chest x-ray is consistent with d iffuse bilateral infiltrates, consistent with coronavirus associated pneumonia, and acute respiratory distress syndrome. Progress note dated 01/16/2021. 55-year-old male, with coronavirus associated pneumonia. The patient was intubated and mechanically ventilated on January 14 for worsening hypoxemic respiratory failure. He remains on the ventilator. The patient is on the volume assist control mode, rate 30, tidal volume 450, FiO2 80%, PEEP of 15. Arterial blood gases show pO2 of 53, pCO2 43, and a pH is 7.39. Those blood gases were done on 50%, and subsequent currently, he was increased up to 80%. I've reduced him back down to 60%. In addition, the patient's getting saline at 130 mL an hour, which will be reduced down to KVO, heparin, via weightbase protocol, propofol, at 70 mcg/kg/m, Nimbex at 1.25 mcg/kg/m vital 1.2 at 23 mL an hour, which is goal, and norepinephrine, which is been weaned off recently. White count 9.5, hemoglobin 12.4, hematocrit 38.5, platelet count 199,000. PTT is 40.9, d-dimer is 4.98. Electrolytes, for some reason were not drawn. Chest x-ray shows diffuse bilateral infiltrates, consistent with coronavirus associated pneumonia. Progress note dated 01/17/2021. 55-year-old male, with coronavirus pneumonia. The patient was intubated and mechanically ventilated on January 14 for worsening hypoxemic respiratory failure. The patient remains on mechanical ventilator. He is on the volume assist control mode, rate 30, tidal volume 450, FiO2 60%, and PEEP of 15. Blood gases show a PaO2 of 79, CO2 53, and pH 7.35. The patient remains on Nimbex at 2.25 mcg/kg/m, a fall at 70 mcg/kg/m, heparin via weightbase protocol, saline at 20 mL an hour, and vital AF at 14, which is goal. The patient was prolonged for 16 hours yesterday. The patient does have a cuff leak on its endotracheal tube. We'll have anesthesia take a look at it. The 2 may need to be replaced. White count 9.2, he will been 12.6, hematocrit 37.3, and platelet count 340,000. PTT is 48.4. Sodium 135, potassium 4.1, chlorides 104, CO2 27, anion gap 4, BUN 20, with a creatinine 0.73. Albumin is 2.5. Chest x-ray shows diffuse bilateral infiltrates consistent with coronavirus pneumonia. Progress note dated 01/18/2021. 55-year-old male, with coronavirus pneumonia. The patient was placed on the mechanical ventilator on January 14, for worsening hypoxemic respiratory failure. He remains on the ventilator. The patient is on the volume assist control mode, rate 30, tidal volume 450, FiO2 55%, and PEEP 15. Blood gases show pO2 of 88, pCO2 of 44, and a pH is 7.48. These blood gases were done actually on 60%. The patient remains on heparin via weightbase protocol, propofol at 70 mcg/kg/m, Nimbex at 2.25 mcg/kg/m, vital AF at 14 mL an hour which is goal. The patient was proned again for 16 hours. White count 7.7, hemoglobin 12.2, hematocrit 36.6, and platelet count 2 49,000. Sodium 138, potassium 4, chlorides 103, CO2 31, anion gap 4, BUN 20, and creatinine 0.73. Chest x-ray shows diffuse bilateral infiltrates, consistent with acute respiratory distress syndrome. Progress note dated 01/20/2021. 55-year-old male, admitted with a diagnosis of coronavirus associated pneumonia. The patient is again seen in room 254. He remains on the mechanical ventilator. He is on the volume assist control mode, rate 30, tidal volume 450, FiO2 50%, PEEP of 5. Arterial blood gases show a PaO2 of 77, PaCO2 42, and a pH is 7.47. The patient remains on Nimbex at 3 mcg/kg/m, propofol at 50 mcg/kg/m, heparin via weightbase protocol, and vital AF at 14 mL an hour, which is goal. Current labs include a white count of 8, hemoglobin 11.7, hematocrit 34.9, and a platelet count of 292,000. PTT is 44.2. Sodium 137, potassium 4, chlorides 103, CO2 28, anion gap 6, BUN 24, and creatinine 0.73. AST is 118 with an ALT of 243. LDH is 1228. C-reactive protein is 8.7. Chest x-ray continues to show bilateral airspace disease, which is essentially unchanged. Reevaluated today on 01/31/2021, patient remains in the ICU, intubated and mechanically ventilated. He is on assist control rate of 22, volume control +450 FiO2 50% PEEP is at 10. ABG showed a pO2 of 58 pCO2 of 38 pH of 7.46. Patient is still requiring propofol, he could not tolerate switching propofol to Precedex as he became extremely agitated and restless tachypneic and tachycardic, hence he was placed back on propofol at 60 mcg/kg/m. Chest x-ray continues to show bilateral infiltrates. Improved compared to his initial baseline chest x-ray. CBC is relatively unremarkable electrolytes are unremarkable. Renal profile is normal. Patient remains on enteral feeding via PEG tube. Remains on the COVID-19 cocktail, remains on Decadron. Remains on Lovenox 40 mg subcu daily. He is on Dilaudid when necessary. Remains on Protonix, Seroquel was added a few days ago, and I will likely increase the dose. Patient is still on Zyvox and he is on voriconazole. Patient is off cefepime. Reevaluated today on 02/01/2021, patient remains in the ICU, intubated and mechanically ventilated, continues to have tracheostomy in place, and seems to be intact. Patient is awake, maintain on propofol at 40 mcg/kg/m, however I have instructed the nursing staff today to cut down the propofol and hopefully discontinued if possible as long as the patient remains calm and not agitated. We have tried in the past titrating propofol and with dried Precedex on this patient, and nothing seems to help, however I went ahead and increased his dose of Seroquel. Hoping we could get the patient off propofol. Patient is on volume control +450 rate of 22 of 10 FiO2 50%. ABG is marginal with a pO2 of 63 pCO2 of 40 pH of 7.43. WBC count 9.2 hemoglobin 10.4 electrodes are normal renal profile is normal. Chest x-ray continues to show bilateral infiltrates, not much of a change noted. Medications lund, patient remains on Decadron 6 mg IV push twice a day, he is on Lovenox 40 mg subcu daily, lactulose, Zyvox, voriconazole, Seroquel 100 twice a day, Protonix 40 mg IV push daily, he is not requiring any pressors, and he is off cefepime. Reevaluated today on 02/02/2021, patient is basically about the same. Remains intubated and mechanically ventilated. Remains on propofol at 30 mcg/kg/m, not requiring any other sedation medication, patient had poor tolerance to Precedex. Today I recommended a trial of Ativan 1 mg IV push every 4 hours when necessary, hoping we can taper down and possibly discontinue propofol altogether. Patient is hemodynamically stable, not requiring any pressors. Remains on assist control rate of 22 volume control plus of 450 FiO2 50% remains on antibiotics and antifungal. Remains on Protonix for GI prophylaxis. And he is off cefepime. ABG today showed a pO2 of 75 pCO2 of 42 pH of 7.47. WBC count is 9.4 hemoglobin 11.6. Electrolytes and renal profile are normal. Patient remains on the COVID-19 cocktail. Lovenox 40 mg subcu daily. He remain s on Zyvox. Remains on ascorbic acid. And on zinc. Patient is also on vitamin D Reevaluated today on 02/03/2021, patient remains in the ICU, intubated and mechanically ventilated. Finally the patient is off propofol, he is on Ativan when necessary, he is also on Seroquel, and overall I believe the patient is making a significant improvement in his intermittent episodes of agitations, and his requirement for sedation. Today I reviewed his ventilator settings and he is on assist control rate of 22 tidal volume 450 FiO2 50% PEEP of 6. His chest x-ray continues to show some bibasilar infiltrates bilaterally. Minimal improvement compared to his baseline. ABG showed a pO2 of 67 pCO2 43 pH of 7.47 hence I recommended that that the patient goes on a trial of weaning with a pressure support of 10 and CPAP. WBC count is 9.2 hemoglobin is 10.9. Medication list was reviewed, patient is on vitamin C, Peridex, vitamin D, Decadron 6 mg IV push twice a day, Lovenox 40 mg subcu daily, Dilaudid when necessary, Ativan when necessary, Zyvox 600 mg IV to 12 hours, Protonix 40 mg IV push daily Seroquel 100 mg by mouth twice a day voriconazole, and zinc. Progress note dated 02/04/2021. 55-year-old male, seen in room 251. The patient was admitted on January 11. He came in with woodruff virus associated pneumonia. He came to the intensive care unit on January 13, and was intubated on the . The patient underwent tracheostomy and PEG tube placement on January 23. Currently, he sitting at the bedside. He is on pressure support of 10 and CPAP of 5 and 45%. He's been on that for 24 hours. He looks very comfortable. I told respiratory therapist that we could try to transition him to a trach collar. The patient is receiving saline at KVO. He is getting vital AF at 50 mL an hour, which is goal. The patient is on multiple antibiotics including voriconazole and Zyvox, neither of which needs to be continued. Blood gases showed a pO2 of 87, pCO2 of 37, and a pH is 7.52. White count 9.9, hemoglobin 11.1, hematocrit 33.7, platelet count 230,000. Sodium 135, potassium 4.3, chlorides 101, CO2 29, anion gap 5, BUN 40, creatinine 0.96. Chest x-ray shows diffuse bilateral infiltrates consistent with coronavirus pneumonia and/or ARDS. Progress note dated 02/05/2021. 55-year-old male, again seen in room 251. The patient was admitted on January 11. He was admitted with a diagnosis of coronavirus associated pneumonia. He came to the intensive care unit on January 13, and was intubated for respiratory failure on the . The patient underwent tracheostomy and PEG tube placement on January 23. Since yesterday, at 10 AM, he's been on 40% trach collar. He seems to be doing relatively well. He is not receiving any IV fluids. He is getting vital AF at 50 mL an hour, which is goal. If E stable tomorrow, he can move out of the intensive care unit. Currently, white count is 11.2, hemoglobin 11.7, hematocrit 37, and platelet count 318,000. Sodium 136, p otassium 5, chlorides 99, CO2 32, anion gap 5, BUN 38, creatinine 1. Chest x- rays consistent with diffuse bilateral infiltrates, and is essentially unchanged. Progress note dated 02/06/2021. 55-year-old male, again seen in room 251. The patient was admitted to the hospital on January 11. The patient was admitted with a diagnosis of coronavirus associated pneumonia. He came to the intensive care unit on January 13, and was intubated for respiratory failure on the . The patient underwent tracheostomy and PEG tube placement on January 23. For the last 48 hours, the patient has been either on trach collar or T-piece. The patient is not receiving any IV fluids. The patient is a candidate to go to the general medical floor without telemetry. No new labs or x-rays today. Progress note dated 02/08/2021. The T5-year-old male, seen in room 355. The patient was admitted back on January 11. He was admitted with a diagnosis of coronavirus associated pneumonia. He came to the intensive care unit on January 13, and was intubated for respiratory failure following day, on January 14. The patient underwent tracheostomy and PEG tube currently, he is resting comfortably. He is on trach collar at 80%. He is getting tube feeds at 50 mL an hour. No additional fluids are running. He looks very comfortable. White count 18.7, hemoglobin 12, hematocrit 37.7, and platelet count 244,000. Sodium potassium normal, chloride normal, CO2 28, anion gap 9, BUN and creatinine were 34 and 1.02. Objective - Vital Signs Vital signs: Vital Signs Temp 102.1 F H 02/08/21 08:00 Pulse 97 02/08/21 08:00 Resp 20 02/08/21 08:00 BP 109/69 02/08/21 08:00 Pulse Ox 96 02/08/21 08:00 Intake & Output 02/07/21 02/08/21 02/08/21 18:59 06:59 18:59 Intake Total 243 510 Output Total 325 200 Balance -82 310 Weight 90.5 kg 90.5 kg Intake: Oral 243 360 Tube Feeding 150 Output: Urine 325 200 Other: Voiding Method Urinal Urinal Urinal # Bowel Movements 1 ABP, PAP, CO, CI - Last Documented Arterial Blood Pressure 118/93 - Exam No acute distress, oriented 3, laying in the bed, on a trach collar. HEENT examination is grossly unremarkable. Neck supple. Full range of motion. No adenopathy thyromegaly or neck vein distention. Midline tracheostomy tube noted in good position. Cardiovascular examination reveals regular rhythm rate. S1-S2 normal. No S3 or S4. No discernible murmur noted. Heart sounds are distant. Heart rate 97 bpm. Lungs reveal guarded bilateral rhonchi. Breath sounds equal bilaterally. No wheezes or crackles. Saturations are between 90 and 96%. Abdomen soft bowel sounds are heard. No masses or tenderness. PEG tube noted. Extremities are intact. No cyanosis clubbing or edema. Skin is without rash or lesion. Neurologic examination is brief but nonfocal. - Labs CBC & Chem 7: 02/08/21 08:50 02/08/21 08:50 Labs: Abnormal Lab Results - Last 24 Hours (Table) 02/07/21 02/08/21 02/08/21 Range/Units 18:03 00:13 06:41 WBC (3.8-10.6) k/uL RBC (4.30-5.90) m/uL Hgb (13.0-17.5) gm/dL Hct (39.0-53.0) % Neutrophils # (1.3-7.7) k/uL Eosinophils # (0-0.7) k/uL BUN (9-20) mg/dL Glucose (74-99) mg/dL POC Glucose (mg/dL) 146 H 114 H 147 H (75-99) mg/dL ALT (4-49) U/L Alkaline Phosphatase (38-126) U/L Albumin (3.5-5.0) g/dL 02/08/21 02/08/21 02/08/21 Range/Units 08:50 08:50 11:59 WBC 18.7 H (3.8-10.6) k/uL RBC 3.93 L (4.30-5.90) m/uL Hgb 12.0 L (13.0-17.5) gm/dL Hct 37.7 L (39.0-53.0) % Neutrophils # 16.0 H (1.3-7.7) k/uL Eosinophils # 0.8 H (0-0.7) k/uL BUN 34 H (9-20) mg/dL Glucose 151 H (74-99) mg/dL POC Glucose (mg/dL) 199 H (75-99) mg/dL ALT 80 H (4-49) U/L Alkaline Phosphatase 137 H (38-126) U/L Albumin 3.4 L (3.5-5.0) g/dL Assessment and Plan Assessment: Acute hypoxemic respiratory failure secondary to coronavirus associated pneum onia, with intubation and mechanical ventilation, initiated on January 14, for worsening hypoxemia, and subsequent tracheostomy and PEG tube placement on January 23, 2021. Acute respiratory distress syndrome (ARDS), secondary to coronavirus associated pneumonia. Previous history of bilateral pulmonary emboli, and left leg DVT, 2016, currently on IV heparin empirically. Critical illness polyneuropathy. History of osteoarthritis. No prior history of tobacco use. Acute kidney injury, resolved. Plan: Plan dated 01/14/2021. Currently, the patient's on appropriate medication. I did tell the patient, that he may require intubation and mechanical ventilation. Currently, he looks so good despite being on BiPAP, the patient will try to ride it out a bit longer. Should he fatigue, or should his saturations drop, we will do an elective intubation and mechanical ventilation. Will likely need an art line and a central line. Labs are reviewed. Prognosis is guarded. We will continue to follow make recommendations where appropriate. Plan dated 01/15/2021. Yesterday, the patient developed worsening hypoxemic respiratory failure, and was intubated. The patient remains on vitamin C, vitamin D3, and zinc. In addition, the patient is being sedated with, and paralyzed with Nimbex. The patient is getting Dilaudid when necessary. The patient remains on IV heparin, and Decadron. The patient is also getting BASHIR. Obviously, the patient is very critically ill, and we will continue to follow the patient and make recommendations were appropriate. Prognosis is guarded. Plan dated 01/16/2021. The patient remains on the mechanical ventilator. We have been able to wean off the norepinephrine. Remains on propofol, and Nimbex. He is getting tube feeds at goal. The patient gets Lasix 40 mg IV push. We will attempt to prone the patient for 16 hours. The FiO2 was changed to 60%. We will continue to follow make recommendations where appropriate. Prognosis is guarded. In addition to vitamins, and Decadron, he remains on BASHIR. Plan dated 01/17/2021. The patient is not quite ready to come off the ventilator. He still requiring 6% FiO2, and PEEP of 15. The patient has shown some improvement since he was intubated a couple days ago. He remains on IV heparin, propofol, and paralysis with Nimbex. The patient was proned for 16 hours yesterday. His endotracheal tube may need to be changed. He remains on vital AF. We will continue to follow and make recommendations were appropriate. Prognosis is certainly guarded. He remains on vitamin C, vitamin D3, zinc, Decadron, and BASHIR. Plan dated 01/18/2021. The patient remains on the mechanical ventilator. He remains on heparin, propofol, Nimbex, and tube feeds. The patient's oxygenation has improved a bit, and once he hits an FiO2 of 50% or less, we will be able to start weaning down the PEEP. Patient remains on vitamin C, vitamin D3, zinc, Decadron, and BASHIR. We will continue to follow make recommendations where appropriate. The patient remains on BASHIR. Plan dated 01/20/2021. The patient was seen by my nurse practitioner along with me yesterday. The archana kelly remains on the mechanical breathing machine. He remains on heparin, propofol, Nimbex, and tube feeds. In addition, the patient is on vitamin C, vitamin D3, zinc, Decadron, and BASHIR. In my opinion, although last couple of days, the patient's chest x-ray has shown some improvement, and his oxygenation has improved. He is currently on 50% with PEEP of 15. We will continue to follow make recommendations were appropriate. Prognosis is guarded. Medications, x-rays, and labs are all reviewed. Plan dated 02/04/2021. The patient had a tracheostomy and PEG tube placement placed on January 23. Currently he is resting comfortably at bedside, on pressure support of 10 and CPAP of 5. He is receiving 45% FiO2. We are going to try to get him onto trach collar today. We'll DC the voriconazole and Zyvox. The patient continues on saline at KVO and tube feeds at goal of 50 mL an hour. Blood gases show pO2 of 87, pCO2 37, and a pH is 7.52. We will continue to follow and make recommend ations where appropriate. Prognosis is still guarded. Plan dated 02/05/2021. The patient has been on trach collar since 10:00 yesterday. He is doing very well. The patient is not receiving any IV fluids. The patient remains on vitamin C, vitamin D3, and zinc. In addition, the patient is on Lovenox and Decadron. Additional recommendations and suggestions are forthcoming. Prognosis is guarded. I will cut back on the Decadron to once a day. Plan dated 02/06/2021. The patient remains in the intensive care unit, room 251. The last 48 hours or so, the patient has been on trach collar, or on a Mooney trial. The patient is not receiving any IV fluids. No new labs to report. No new x-rays to report. The patient's medications include vitamin C, vitamin D3, zinc, Decadron, and Lovenox. Additional recommendations and suggestions are forthcoming. Prognosis is guarded. We will continue to follow this patient and make recommendations where appropriate. Hopefully, the patient could be considered for transfer out to the general medical floor. Plan dated 02/08/2021. The patient is seen in room 355. Previously, he was in the intensive care unit. He's currently on a trach collar 80%. He's not receiving any IV fluids. He is receiving tube feeds. The patient is on vitamin C, vitamin D3, and zinc. The patient also remains on Decadron and Lovenox. Additional recommendations and suggestions are forthcoming. The patient has been weaned off of all antibiotics. We'll continue to follow make recommendations where appropriate. Prognosis is guarded. Time with Patient: Less than 30
--- NOTE | 2021-02-08 15:15 | P.PN ---
Subjective Progress Note Date: 02/08/21 HISTORY OF PRESENT ILLNESS This is a 55-year-old male patient of Dr. 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 Patient states he has not been feeling well since Thursday. He said shortness of breath cough is nonproductive along with fever and chills, exertional dyspnea. He denies having any nausea vomiting or diarrhea. He denies any close contacts to known Covid people. He states his temperature is been up to 102.7 at home. He is not vaccinated. Patient presented to [facility] emergency center and found to be febrile at 101.1, heart rate 90, blood pressure 122/80, pulse ox 85% on room air. CBC revealed platelet count of 128. D-dimer 0.82. Sodium 131 otherwise electrolytes and renal function were normal. Blood sugar 147. Troponin negative. Coronavirus PCR positive. Chest x-ray reveals patchy bilateral airspace disease especially in the mid and lower lungs. Correlate for multifocal pneumonia including Covid 19 pneumonia. CTA of the chest was suboptimal study without central acute pulmonary embolism. Bilateral multifocal and confluent groundglass opacities right greater than left and greater in the lower lungs consistent with known Covid 19 infection. Patient is seen today in the emergency center waiting for bed on the [facility] floor, started on Remdesivir, Lovenox, dexamethasone and vitamin supplements, consult with pulmonary medicine. 01/12: Patient is comfortable, however he requires 40 L of oxygen via airvo sats 88-89%, he feels better today compared to his nonrebreather mask yesterday, patient did not sleep well, patient does not have any cough, however he does have shortness of breath. Patient denies any aspiration, appetite is still marginal, patient has insomnia vitals, blood sugar currently is 243, creatinine of 0.98, d-dimer is 0.84, CRP is elevated, LDH is elevated, venous Doppler, shows chronic DVT, left popliteal, in the posterior tibial veins, without any obstruction of flow. No acute DVT identified CTA, shows suboptimal, without central acute pulmonary emboli, has bilateral multifocal and confluent groundglass opacities, right greater than left, lower lobe, consistent with COVID-19 infection and remdesivir discontinued by pulmonary today and is outside of the window for remdesivir 01/13: Patient is on aerosol 14 L, with nonrebreather mask, 15 L, hypoxemia n oted on 88%, worse with coughing, however his nonrebreather mask is very loose. Nurse is worriedwith the turn of events, and requested an ICU transfer, Dr. Canales has seen the patient, and is stable for floor management at this time, patient is not significant tachypnea, and is not tiring out. There is no hemoptysis, and mucus is productive, patient's doing incentive spirometry, up 2 L. 01/14: Patient remains in the intensive care unit, he was intubated this morning as he was desaturating with BiPAP. He has been afebrile, heart rate 73, blood pressure 93/47, pulse ox 90%. CBC is unremarkable. D-dimer 12.04. Sodium 135, creatinine 0.82. LDH 2929, C-reactive protein 5.2. Sputum culture is in progress. He has had good urine output. Chest x-ray reveals no evident convocation from catheters. Bilateral airspace disease. 01/15: Patient remains in the intensive care intubated and on mechanical ventilation with tidal volume 450, FiO2 80, PEEP of 15. Patient has been started on norepinephrine and remains on propofol, heparin drip, Nimbex. Repeat blood work revealed unremarkable CBC. Creatinine 0.88. Capillary blood glucose running between 195 and 215. AST 126, ALT 183, alkaline phosphatase 109. Sputum culture is in progress. Repeat chest x-ray reveals correlate for pneumonia versus edema, ARDS. Patient is continued on vitamin supplements, heparin drip, dexamethasone and Baricitinib. patient remains in intensive care intubated on mechanical ventilator at FiO2 60 percent PEEP respiratory rate of 30 tidal volume 450. Continues to maintain saturations between 94-95% on the current settings. Vitals otherwise stable labs reviewed today WBC is 9.5 hemoglobin 12.4 d-dimer is elevated at 4.98. ABG obtained today suggest pH of 7.4 pO2 53 bicarb 26 on 50% FiO2. Creatinine stable at 0.78 glucose is maintained between 145-190. LDH 1564 CRP is elevated at 4. Patient's inflammatory markers trending down. Patient's vent settings increased to 80% for inadequate oxygenation. Chest x-ray reviewed showed bilateral infiltrate consistent with coronavirus associated pneumonia. Patient continues intubated on propofol 70 bike but patient examined Nimbex 1.25 g daily per minute. Patient to receive 1 dose of Lasix today. Continue to remain on baricitinib day 2 PAtient remains intubaated since . patient continues too remain on assist control, TV 450 , peep 15 and fio2 of 60 %. patient was proned for 16 hours yesterday. CXR was reviewed, COVID pneumonia but no significant change was noted, Will repeat inflammatory markers tomorrow. Vent managment per game programmer. Patient contines to remain propofol , nimbex. Continue on lovenox, baricitinib, dexamethasone and vit supplement 01/18 patient continues to remain intubated. Covid pneumonia. Is currently on assist control respiratory rate of 30 tidal volume 450 FiO2 of 55% and PEEP of 15. She is currently on heparin drip, propofol and Nimbex. Patient continues to tolerate prone positioning 16 hours overnight. Continues to receive dexamethasone, vitamin supplement, anticoagulation with heparin, baricitinib. Labs are reviewed patient has a hemoglobin stable at 12.2. This morning pH 7.48 PCO2 44 bicarb 32 creatinine 0.73 AST 100 chest x-ray done this morning suggestive of ARDS and pneumonia 01/19 patient continues to remain intubated currently on assist-control vent with a rate of 30 tidal volume 450 FiO2 50 and PEEP of 15. Continues to remain on propofol and Nimbex. Continue heparin drip for anticoagulation. Remains on Baricitinib , vitamin supplementation and dexamethasone. Labs reviewed hemoglobin stable at 12 PTT 53 blood gas obtained today suggest a pH of 7.45 pCO2 46 pO2 69 bicarb 32 BUN 23 creatinine 0.0.8 glucose 122 AST ED ALT 226. inflammation markers ordered for tomorrow last set was obtained on 01/12 01/20 Intubated. Vitals reviewed patient's afebrile pulse of 68 respiratory rate 30 blood pressure. 94/56 oxygen 91% on 50% FiO2. Patient remains on assist control, tidal volume 450 respiratory rate 30 FiO2 of 50% and PEEP of 15. He is currently on Pneumovax at 3 mics per KG per minute propofol at 50 Micro-K to Coumadin and heparin drip. Patient labs are reviewed hemoglobin is 11.7. Arterial blood gas at 50% FiO2 has a pH of 7.47 pO2 of 77 bicarb of 31 BUN 24 creatinine 0.7 LDH [id number] CRP 8.70. CRP is slightly elevated with improvement in LDH. Continue to monitor patient with the goal with treatment on heparin, as dexamethasone, vitamin supplementation and Baricitinib . Blood sugar are well controlled. 01/21: Patient remains intubated and on mechanical ventilation with tidal volume 400, FiO2 40 and PEEP of 16. Patient is on propofol and fentanyl drips. He is on tube feedings to be increased to 26 ML's per hour and tolerating. She he has had 100 250 ML's of urine output per hour. He has been afebrile, heart rate 70, respiratory rate 30, blood pressure 115/64, pulse ox 93%. Repeat blood work reveals WBC 7.4, hemoglobin 12, platelet count 310. D-dimer 1.23. Sodium 134, BUN 24 and creatinine 0.73. Blood sugars are running between 101 and 164. AST 105, ALT 261, alkaline phosphatase 135. LDH 999. C-reactive protein 13.5. Albumin 2.9. Gallbladder ultrasound reveals nonspecific pattern of liver can be seen with hepatic steatitis or hepatocellular disease including hepatitis. The chest x-ray reveals bilateral patchy airspace disease stable. 01/22: Remains in the intensive care unit intubated and on mechanical ventilation with tidal volume 400, FiO2 40, PEEP of 13. Paralytics for pause this morning and patient had significant drop in his pulse ox. He is currently on propofol, fentanyl and Nimbex. He has been afebrile, heart rate 73, blood pressure 99/63, pulse ox 90%. Repeat blood work reveals hemoglobin 11.6. Creatinine 0.81. Blood sugars are running between 98 and 155. AST 85, ALT 260, alkaline phosphatase 132. LDH 954, C-reactive protein 6.8. Repeat chest x-ray reveals bilateral patchy diffuse airspace disease stable. Patient is continued on Baricitinib, Lovenox 40 mg subcu daily, dexamethasone 6 mg IV push and vitamin supplements 01/23: Remains in the intensive care unit on mechanical ventilation with tidal volume 400, FiO2 40 and PEEP of 10. Patient is scheduled for trach and PEG tube placement today. He is currently on propofol, fentanyl and Nimbex. Patient remains afebrile, heart rate 69, respiratory rate 30, blood pressure 120/76, pulse ox 93%. Repeat blood work reveals creatinine is 0.71. WBC 8.3, hemoglobin 12.9. AST 111, ALT 328, alkaline phosphatase 153. Blood sugars have been running between 92 and 193. Sputum culture is showing Corynebacterium species from 01/21 and Aspergillus from 01/14. Repeat chest x-ray reveals bilateral patchy diffuse airspace disease stable. Patient is continued on Baricitinib, Lovenox 40 mg subcu daily, dexamethasone 6 mg IV push and vitamin supplements 01/24: Patient is status post trach and PEG tube done yesterday by Dr. Olivares. Patient is off Nimbex and he has his eyes open but not following commands. Patient's is planning to come in today to see him. He remains on ventilator with tidal volume 300, FiO2 50 and PEEP of 10. Repeat chest x-ray reveals diffuse bilateral infiltrate stable. Antibiotics have been changed to ce fepime and patient started on IV Voriconazole. Patient is continued on dexamethasone, Lovenox and vitamin supplements. WBC 17.2, hemoglobin 12.3. Sodium 130, BUN 21 creatinine 0.83. Total bilirubin 2, AST 54, ALT 248, alkaline phosphatase 132. Capillary blood glucose running between 80 and 193. 01/25: Patient remains in the intensive care unit on mechanical ventilation with tidal volume 400, FiO2 is been increased to 100 and PEEP of 12. Patient is currently on propofol, and was started on vasopressors yesterday and is status post 2 L of IV fluid. Temperature max 101.3. Pulse 87, respiratory rate 33, blood pressure 120/57, pulse ox 95%. compliance clerk is a sinus rhythm. Repeat blood work reveals WBC 8.3, hemoglobin 11. Sodium 136, chloride 108. Creatinine is 0.83. Calcium 7.9. Total bilirubin 2.7, AST 64, ALT 171, alkaline phosphatase 127. LDH 1187. C-reactive protein 32.6. Blood sugars are running between 133 and 173. Urine culture is showing gram-negative bacilli. Blood culture from 01/24 showing no growth at 24 hours. Repeat chest x-ray reveals clear to megaly with bilateral confluent mid to lower lung opacities consistent with: 19 infection redemonstrated. No significant change. Patient is currently on cefepime, Zyvox and there, so for worsening bilateral pulmonary infiltrate, pneumonia. 01/26: Patient remains in intensive care unit on mechanical ventilation with tidal volume 450, FiO2 80 and PEEP of 12. He has been afebrile for greater than 24 hours. Heart rate 80, blood pressure 132/70, pulse ox 86%. He does have leaking around the tracheostomy site. Repeat blood work reveals WBC 8, hemoglobin 11.1, platelet count 291. Sodium 135, potassium 5.8, creatinine 1.15. Total bilirubin 1.8, AST 101, ALT 194, alkaline phosphatase 135. LDH 1156. C-reactive protein 35.7. Blood sugars are running between 154 and 183. Patient will be started on Levemir 10 units at bedtime. He is continued on cef epime, Zyvox and voriconazole. 01/27: Patient remains intubated and on mechanical ventilation with tidal volume 400 50, FiO2 60, PEEP of 12. Plan is to try and wean oxygen down today. Tracheostomy tube has been manipulated and repositioned. He is not requiring vasopressors, currently on propofol. Chest x-ray reveals no significant interval change. Patient has had good urine output with BUN of 37 creatinine 1.28. Other lab work reveals WBC 9.8, hemoglobin 10.7. D-dimer 5.45. Total bilirubin 1.4, AST 153, ALT 282, alkaline phosphatase 138, LDH 1073. C-reactive protein 16.3. ProCalcitonin 10.1. 01/28: Remains in the intensive care unit, intubated and on mechanical ventilation with tidal volume 450, FiO2 of 60 and PEEP of 10. Patient is responsive, follows a few simple commands. He is currently on antibiotics in the form of cefepime, Zyvox and voriconazole. Patient is also continued on Decadron and Lovenox. Repeat blood work reveals WBC of 10, hemoglobin 10.5. D- dimer 5.63. C-reactive protein 6.2. LDH 1025. Total bilirubin 1.3, AST 95, ALT 250. Patient is on tube feedings at goal. He has had good urine output. Social work will start process for discharge to select specialty with anticipation of him being ready by the end of the week. 01/29 patient is currently in the ICU on with tracheostomy with tidal volume 450 FiO2 decreased to 55 this morning with PEEP of 10. Patient is responsive get agitated once propofol is discontinued. Patient is getting of diarrheal ordered every few hours to help with pain control. Currently stays on antibiotic in the form of cefepime, Zyvox and voriconazole. Urine output is appropriate in her on 75 200 mL per hour. Continues to remain on Decadron and Lovenox. He's currently off norepinephrine off Precedex is off fentanyl. Chest x-ray reviewed has bilateral interstitial infiltrate not changed. Labs reviewed, WBC 11.1 h emoglobin is 11.4 R blood gas this morning on 60% FiO2 suggest EF pO2 of 65 bicarb 26 blood sugar controlled ranging from 156-197. Ventilator management per pulmonary as reduce the FiO2 to 55 . Repeat blood gas in 24 hours. Patient initiating Seroquel 50 twice a day for agitation. Discussion with the nurse was made to reduce the Seroquel to 25 twice a day if patient appears to be sedated 01/30: Patient remains in intensive care unit, intubated status post tracheostomy and PEG tube placement. He is on tidal volume 450, FiO2 of 50 and PEEP is down to 10. He is able to follow some simple commands. Pulmonary medicine is planning to discontinue propofol and switched to Precedex. He is on tube feedings. Social work is following for possible discharge to [facility] by the end of the week. 01/31: Patient remains in the intensive care unit intubated and on mechanical ventilation status post PEG tube and trach. Tidal volume 450, FiO2 50 and PEEP of 10. Patient is on propofol. He is on PEG tube feedings at goal. Patient is continued on Lovenox, Decadron, supplements. Cefepime has been discontinued and he is continued on Zyvox and 4, his old. Social work is following closely for discharge planning however at this time, there are no facilities that will accept the patient. 02/01: Patient is out of Covid isolation. Patient remains on mechanical ventilation with tidal volume 450, FiO2 50, PEEP of 10. Patient is on propofol which is to be weaned off today. He still has Sim catheter with good urine output. Feedings are at goal. Patient has occasional cough, mild edema. Patient is refusing IV Dilaudid for pain. Bowel movements been soft but no diarrhea. Patient is afebrile, heart rate 68, respiratory rate 24, blood pressure 130/75, pulse ox 92%. 02/02: Patient is seen in ICU he is currently out of Covid isolation. Remains on mechanical ventilation with trach. Tidal volume 450, rate of 22 with a PEEP of 8 FiO2 of 50%. Patient is currently on propofol which will continue to be weaned today with the addition of Ativan. Sim catheter in place with good urine output. Feedings are at goal. Does have occasional cough, mild edema. 02/03: Patient is seen in ICU remains on mechanical ventilation with trach. Tidal volume 450 rate of 22 with a PEEP of 6 FiO2 of 45%. Patient is off of propofol. Discussion for transitioned to CPAP machine for today. Sim catheter in place with good urine output. Feedings are at goal. Patient does have occasional cough continues have mild edema. Patient is able to follow commands bilateral upper extremity strength equal. 02/04: Patient remains in the intensive care unit. He is currently on trach collar at 40% FiO2 with pulse ox of 97%. He is afebrile, heart rate in the 50s to 80s, blood pressure 105/69. Repeat blood work reveals WBC 9.9, hemoglobin 11.1, platelet count 230. Sodium 135, potassium 4.3, chloride 101, CO2 29, BUN 40 creatinine 0.96. Blood sugars are running between 125 and 211. Repeat chest x-ray reveals findings consistent with Covid pneumonia consider ARDS. Patient is now slowly progressing and his goal is to get home by [place]. 02/05: Patient remains in the intensive care unit. He is on trach collar at 40% FiO2 with pulse ox of 87 and 95%. Blood pressure 103/66, heart rate in the 50s and 60s, afebrile. Patient is able to mouth words and cough is better today. He is needing to be suctioned for secretions. He is nothing by mouth and on peg tube feedings at goal. Repeat blood work reveals hemoglobin 11.7, WBC 11.2. Sodium 136, potassium 5, chloride 99, CO2 32, BUN 38 and creatinine 1. Blood sugars are running between 125-197. Repeat chest x-ray consistent with history of pneumonia. Patient may move out of the ICU tomorrow. 02/06: A remains in the intensive care unit. His daughter is at the bedside. He has been downgraded to [facility] with telemetry and waiting for bed. He underwent barium swallow today and found no aspiration or penetration. Speech therapy has recommended regular diet with thin liquids. His secretions are much less and he is coughing less. He has been afebrile, heart rate in the 70s, b lood pressure 103/59, pulse ox 9094% on 40% trach collar. Blood sugars are running between 123 and 165. 02/07: Patient is today on the cardiac stepdown unit. He is on trach collar at 80% FiO2 with pulse ox of 91%. He has been afebrile, heart rate 107, blood pressure 101/67. Patient a 25% of lunch and supper yesterday, he is enjoying being able to eat. He remains on PEG tube feedings as well . The patient has been approved for Medicaid and social work will discuss option of ECF with family. We will add in a consult for Dr. Nuñez for inpatient rehab. 02/08: Patient has been seen by Dr. Nuñez for possible inpatient rehab with goal of discharge on Thursday. Patient developed a fever 102 this morning at 4 AM, heart rate 101, blood pressure 97/64. Pulse ox is percent on 80% trach collar. Capillary blood glucose running between 114 and 209. We have ordered stat blood culture. Patient is on PEG tube feedings and oral diet. Repeat blood work reveals WBC 18.7, hemoglobin 12, platelet count 244. Electrolytes are normal. BUN 34 creatinine 1.02. Blood sugar 151. REVIEW OF SYSTEMS. Constitutional: Noted fever, no chills, no night sweats. No weight change. Reports weakness, reports fatigue or lethargy. No daytime sleepiness. EENT: No headache. No blurred vision or double vision, no loss of vision. No loss of Hearing, no ringing in the ears, no dizziness. No nasal drainage or congestion. No epistaxis. No sore throat. Lungs: No shortness of breath, noted occasional cough, noted sputum production, proving. No wheezing. Cardiovascular: No chest pain, no lower extremity edema. No palpitations. No paroxysmal nocturnal dyspnea. No orthopnea. No lightheadedness or dizziness. No syncopal episodes. Abdominal: no abdominal discomfort. No nausea, vomiting. no diarrhea. No constipation. No bloody or tarry stools. no loss of appetite. Genitourinary: No dysuria, increased frequency, urgency. No urinary retention. Musculoskeletal: No myalgias. No muscle weakness, no gait dysfunction, no frequent falls. No back pain. No neck pain. Integumentary: No wounds, no lesions. No rash or pruritus. No unusual br uising. No change in hair or nails. Neurologic: No aphasia. No facial droop. No change in mentation. No head injury. No headache. No paralysis. No paresthesia. Psychiatric: No depression. No anxiety. No mood swings. Endocrine: No abnormal blood sugars. No weight change. No excessive sweating or thirst. PHYSICAL EXAMINATION Gen: This is a 55-year-old male. He is resting in bed, on trach collar at 80% FiO2, status post trach and PEG. HEENT: Head is atraumatic, normocephalic. Pupils equal, round. Sclerae is anicteric. Tracheostomy intact. NECK: Supple. No JVD. No lymphadenopathy. LUNGS: Crackles bilaterally. No accessory muscle usage. No intercostal retractions. HEART: Regular rate and rhythm. No murmur. ABDOMEN: Soft. Bowel sounds are present. No masses. No tenderness. PEG tube in place. EXTREMITIES: No pedal edema. No calf tenderness. NEUROLOGICAL: Patient is awake, alert and oriented 3, and able to follow commands and answer questions appropriately. ASSESSMENT AND PLAN 1. Acute hypoxic respiratory failure secondary to Covid 19 pneumonia and possible secondary pneumonia, gram-negative and fungal. Patient required intubation 01/14. Patient is status post trach and PEG tube placement 01/[address] Olivares. Patient started on January 12/2021 on baricinib 4 mg daily, discontinued on 01/24. Continue dexamethasone 6 mg IV daily, Lovenox 40 mg subcu daily, and vitamin supplements. consult with Dr. Nuñez for IP rehab. 2. Acute respiratory distress syndrome secondary to coronavirus pneumonia. 3. Acute septic shock requiring vasopressors. Patient is status post IV fluid bolus and off vasopressors. 4. History of bilateral pulmonary emboli and DVT in 2015. CTA negative for PE. Not on chronic anticoagulation. 5. Acute transaminitis secondary to Covid 19. 6. Generalized osteoarthritis. 7. Degenerative changes in the cervical spine status post fusion of C5-6. 8. 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 9. Elevated liver function tests, transaminitis. 10. Hyperglycemia secondary to steroids. Patient is on NovoLog scale, Levemir 10 units at bedtime added. 11. Severe hyperkalemia, resolved. 12. GI prophylaxis. Protonix. 13. DVT prophylaxis. Lovenox. 14. Acute agitation on ventilator.Seroquel to 100 mg twice daily by game programmer. 15. Moderate protein calorie malnutrition requiring PEG tube. Patient's diet advanced to regular with thin liquids by mouth, continue PEG tube feedings until oral diet is sufficient. DISCHARGE PLAN IP rehab Thursday Impression and plan of care have been directed as dictated by the signing physician. Shakila Mosqueda nurse practitioner acting as scribe for signing physician. Objective - Vital Signs Vital signs: Vital Signs Temp 101.2 F H 02/08/21 04:39 Pulse 101 H 02/08/21 04:00 Resp 19 02/08/21 04:00 BP 97/64 02/08/21 04:00 Pulse Ox 90 L 02/08/21 04:00 Intake & Output 02/07/21 02/08/21 02/08/21 18:59 06:59 18:59 Intake Total 243 510 Output Total 325 200 Balance -82 310 Weight 90.5 kg Intake: Oral 243 360 Tube Feeding 150 Output: Urine 325 200 Other: Voiding Method Urinal Urinal # Bowel Movements 1 ABP, PAP, CO, CI - Last Documented Arterial Blood Pressure 118/93 - Labs CBC & Chem 7: 02/08/21 08:50 02/08/21 08:50 Labs: Abnormal Lab Results - Last 24 Hours (Table) 02/07/21 02/07/21 02/08/21 Range/Units 11:58 18:03 00:13 POC Glucose (mg/dL) 209 H 146 H 114 H (75-99) mg/dL 02/08/21 Range/Units 06:41 POC Glucose (mg/dL) 147 H (75-99) mg/dL
[2021-02-08 17:36] LABS: Glucose,Whole Blood 188 mg/dL (75-99)
[2021-02-08] MEDS: HYDROmorphone 1 MG/ML 1 ML SYRINGE IVP PRN (17:56)
[2021-02-08 23:18] LABS: Glucose,Whole Blood 216 mg/dL (75-99)
[2021-02-08] MEDS: INSULIN DETEMIR (LEVEMIR) 100 UNIT/ML SYR SQ SCH (23:19)
[2021-02-09] MEDS: INSULIN ASPART (NovoLOG) 100 UNIT/ML VIAL SQ SCH ×4 (06:32→23:18)
[2021-02-09 06:36] LABS: Glucose,Whole Blood 159 mg/dL (75-99)
[2021-02-09] MEDS: ACETAMINOPHEN TAB 325 MG TAB PO PRN (09:24)
[2021-02-09] MEDS: CHOLECALCIFEROL 25 MCG (1000 IU) TABLET PO SCH (09:24)
[2021-02-09] MEDS: ZINC SULFATE 220 MG CAP PO SCH (09:24)
[2021-02-09] MEDS: ASCORBIC ACID 500 MG TAB PO SCH (09:24)
[2021-02-09] MEDS: ENOXAPARIN 40 MG/0.4 ML SYRINGE SQ SCH (09:25)
[2021-02-09] MEDS: DEXAMETHASONE SOD PHOSPHATE 10 MG/ML 1 ML VIAL IVP SCH (09:25)
[2021-02-09] MEDS: PANTOPRAZOLE 40 MG/10 ML VIAL IVP SCH (09:25)
[2021-02-09] MEDS: QUEtiapine 100 MG TAB PO SCH ×2 (09:26→20:17)
[2021-02-09 12:06] LABS: Glucose,Whole Blood 162 mg/dL (75-99)
--- NOTE | 2021-02-09 14:38 | P.PN ---
Subjective Progress Note Date: 02/09/21 Principal diagnosis: Coronavirus associated pneumonia. COVID-19 pneumonia 55-year-old male patient of Dr. Palm, with a past medical history of bilateral pulmonary emboli, and left leg DVT, migraine headaches, hiatal hernia, inguinal hernias, osteoarthritis with previous history of right shoulder arthroscopy, cervical fusion, nonsmoker, who came into the emergency department on 01/11/2021 for evaluation of shortness of breath, fatigue, cough, fever. His symptoms started on Thursday01/11/2021 and became progressive. Patient is not vaccinated against COVID-19. Chest x-ray today shows patchy bilateral airspace disease especially in the mid and lower lungs. COVID-19 PCR was negative, his white count is 6.1, hemoglobin is 16.8, platelet count is 128, lymphocyte count is 0.9, d-dimer is 0.82, coagulation profile was within normal limits, sodium is 131, the rest of electrolytes are within normal limits, troponin was less than 0.012, LFTs were within normal limits, lactic acid was 1.1. CT angiogram of the chest showed suboptimal study without central acute pulmonary embolism, and bilateral multifocal and confluent groundglass opacities right greater than left and greater in the lower lungs consistent with history of COVID-19 infection. Pulse ox was 85%, patient was febrile on presentation with a temp of 101.1F, he was placed on 3 L of supplemental oxygen, he is awake and alert, does not appear to be in any acute distress, he is ambulating, and does have exertional dyspnea but no acute distress. He was started on Decadron 10 mg IV push 1, prophyla ctic Lovenox, and multivitamins The patient is seen today 01/12/2021 in follow-up on the regular medical floor. He is currently sitting up in a chair at the bedside. His oxygen requirements to go up. He is currently on a 15 L nonrebreather mask with O2 saturation 91%. He was on 4 L yesterday. He is having more shortness of breath. 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 D-dimer 0.84. LDH 684. C-reactive protein 7.0. He is on day #2 of Remdesivir. He remains on Decadron, Lovenox, vitamin supplements. 0.9 normal saline at 130 ML's per hour. The patient is seen today 01/13/2021 in follow-up on the regular medical floor. He is currently sitting up in a chair at the bedside. Awake and alert. He did have some issues with worsening shortness of breath on minimal exertion. He is on the AirVo high flow oxygen at 4 L and 90% FiO2 plus a nonrebreather mask to maintain O2 saturations in the high 80s and low 90s. He's been afebrile. Hemodynamically stable. White count 8.8. Hemoglobin 13.9. Lymphocytes 0.9. Sodium 137. Potassium 4.1. Creatinine 0.4. He is continued on Baricitinib, Decadron, Lovenox, vitamin supplements. Progress note dated 01/14/2021. This morning, the patient was on BiPAP, with settings of 14/6 and 100%. He change IPAP of 14-16. The patient's getting saline at 130 mL an hour, and Precedex at 0.4 mcg/kg/h. I did speak to the patient about the possibility of intubation and mechanical ventilation. The patient was also placed on IV heparin, given his prior history of DVT and pulmonary embolism. White count 7.4, hemoglobin 14.4, hematocrit 43.8, platelet count 165,000. D-dimer was 12.04. Sodium 135, potassium 4.7, chlorides 107, CO2 23, anion gap 5, BUN 24, and creatinine 0.82. LDH was 2929. C-reactive protein was 5.2. The patient's chest x-ray shows diffuse bilateral infiltrates. This patient was admitted to the hospital on January 11, and moved to the intensive care unit on January 13 for worsening hypoxemic respiratory failure. Progress note dated 01/15/2021. Yesterday, the patient was intubated and mechanically ventilated, after developing worsening hypoxemic respiratory failure. A central line was placed, as well as an art line. The patient remains on mechanical ventilator. Currently, he's on the volume assist control mode, rate 26, tidal volume 450, FiO2 100%, and PEEP of 15. Arterial blood gases show a PaO2 of 129, pCO2 58, and a pH is 7.24. With that, the rate is increased to 30 breaths per minute, and the FiO2 was reduced down to 80%. The patient remains on propofol, at 50 mcg/kg/m, Nimbex, at 2 mcg/kg/m, and norepinephrine at 0.03 mcg/kg/m. The patient's also getting saline at 130 mL an hour, IV heparin, and vital, at 23 mL an hour, which is goal. White count 9.5, hemoglobin 13.4, hematocrit 42.3, and platelet count 205,000. PTT is 119. Sodium 140, potassium 4.9, chlorides 111, CO2 25, anion gap 4, BUN 20, creatinine 0.88. The patient's albumin was 2.7. AST was 126 with an ALT of 183. The patient's chest x-ray is consistent with d iffuse bilateral infiltrates, consistent with coronavirus associated pneumonia, and acute respiratory distress syndrome. Progress note dated 01/16/2021. 55-year-old male, with coronavirus associated pneumonia. The patient was intubated and mechanically ventilated on January 14 for worsening hypoxemic respiratory failure. He remains on the ventilator. The patient is on the volume assist control mode, rate 30, tidal volume 450, FiO2 80%, PEEP of 15. Arterial blood gases show pO2 of 53, pCO2 43, and a pH is 7.39. Those blood gases were done on 50%, and subsequent currently, he was increased up to 80%. I've reduced him back down to 60%. In addition, the patient's getting saline at 130 mL an hour, which will be reduced down to KVO, heparin, via weightbase protocol, propofol, at 70 mcg/kg/m, Nimbex at 1.25 mcg/kg/m vital 1.2 at 23 mL an hour, which is goal, and norepinephrine, which is been weaned off recently. White count 9.5, hemoglobin 12.4, hematocrit 38.5, platelet count 199,000. PTT is 40.9, d-dimer is 4.98. Electrolytes, for some reason were not drawn. Chest x-ray shows diffuse bilateral infiltrates, consistent with coronavirus associated pneumonia. Progress note dated 01/17/2021. 55-year-old male, with coronavirus pneumonia. The patient was intubated and mechanically ventilated on January 14 for worsening hypoxemic respiratory failure. The patient remains on mechanical ventilator. He is on the volume assist control mode, rate 30, tidal volume 450, FiO2 60%, and PEEP of 15. Blood gases show a PaO2 of 79, CO2 53, and pH 7.35. The patient remains on Nimbex at 2.25 mcg/kg/m, a fall at 70 mcg/kg/m, heparin via weightbase protocol, saline at 20 mL an hour, and vital AF at 14, which is goal. The patient was prolonged for 16 hours yesterday. The patient does have a cuff leak on its endotracheal tube. We'll have anesthesia take a look at it. The 2 may need to be replaced. White count 9.2, he will been 12.6, hematocrit 37.3, and platelet count 340,000. PTT is 48.4. Sodium 135, potassium 4.1, chlorides 104, CO2 27, anion gap 4, BUN 20, with a creatinine 0.73. Albumin is 2.5. Chest x-ray shows diffuse bilateral infiltrates consistent with coronavirus pneumonia. Progress note dated 01/18/2021. 55-year-old male, with coronavirus pneumonia. The patient was placed on the mechanical ventilator on January 14, for worsening hypoxemic respiratory failure. He remains on the ventilator. The patient is on the volume assist control mode, rate 30, tidal volume 450, FiO2 55%, and PEEP 15. Blood gases show pO2 of 88, pCO2 of 44, and a pH is 7.48. These blood gases were done actually on 60%. The patient remains on heparin via weightbase protocol, propofol at 70 mcg/kg/m, Nimbex at 2.25 mcg/kg/m, vital AF at 14 mL an hour which is goal. The patient was proned again for 16 hours. White count 7.7, hemoglobin 12.2, hematocrit 36.6, and platelet count 2 49,000. Sodium 138, potassium 4, chlorides 103, CO2 31, anion gap 4, BUN 20, and creatinine 0.73. Chest x-ray shows diffuse bilateral infiltrates, consistent with acute respiratory distress syndrome. Progress note dated 01/20/2021. 55-year-old male, admitted with a diagnosis of coronavirus associated pneumonia. The patient is again seen in room 254. He remains on the mechanical ventilator. He is on the volume assist control mode, rate 30, tidal volume 450, FiO2 50%, PEEP of 5. Arterial blood gases show a PaO2 of 77, PaCO2 42, and a pH is 7.47. The patient remains on Nimbex at 3 mcg/kg/m, propofol at 50 mcg/kg/m, heparin via weightbase protocol, and vital AF at 14 mL an hour, which is goal. Current labs include a white count of 8, hemoglobin 11.7, hematocrit 34.9, and a platelet count of 292,000. PTT is 44.2. Sodium 137, potassium 4, chlorides 103, CO2 28, anion gap 6, BUN 24, and creatinine 0.73. AST is 118 with an ALT of 243. LDH is 1228. C-reactive protein is 8.7. Chest x-ray continues to show bilateral airspace disease, which is essentially unchanged. Reevaluated today on 01/31/2021, patient remains in the ICU, intubated and mechanically ventilated. He is on assist control rate of 22, volume control +450 FiO2 50% PEEP is at 10. ABG showed a pO2 of 58 pCO2 of 38 pH of 7.46. Patient is still requiring propofol, he could not tolerate switching propofol to Precedex as he became extremely agitated and restless tachypneic and tachycardic, hence he was placed back on propofol at 60 mcg/kg/m. Chest x-ray continues to show bilateral infiltrates. Improved compared to his initial baseline chest x-ray. CBC is relatively unremarkable electrolytes are unremarkable. Renal profile is normal. Patient remains on enteral feeding via PEG tube. Remains on the COVID-19 cocktail, remains on Decadron. Remains on Lovenox 40 mg subcu daily. He is on Dilaudid when necessary. Remains on Protonix, Seroquel was added a few days ago, and I will likely increase the dose. Patient is still on Zyvox and he is on voriconazole. Patient is off cefepime. Reevaluated today on 02/01/2021, patient remains in the ICU, intubated and mechanically ventilated, continues to have tracheostomy in place, and seems to be intact. Patient is awake, maintain on propofol at 40 mcg/kg/m, however I have instructed the nursing staff today to cut down the propofol and hopefully discontinued if possible as long as the patient remains calm and not agitated. We have tried in the past titrating propofol and with dried Precedex on this patient, and nothing seems to help, however I went ahead and increased his dose of Seroquel. Hoping we could get the patient off propofol. Patient is on volume control +450 rate of 22 of 10 FiO2 50%. ABG is marginal with a pO2 of 63 pCO2 of 40 pH of 7.43. WBC count 9.2 hemoglobin 10.4 electrodes are normal renal profile is normal. Chest x-ray continues to show bilateral infiltrates, not much of a change noted. Medications lund, patient remains on Decadron 6 mg IV push twice a day, he is on Lovenox 40 mg subcu daily, lactulose, Zyvox, voriconazole, Seroquel 100 twice a day, Protonix 40 mg IV push daily, he is not requiring any pressors, and he is off cefepime. Reevaluated today on 02/02/2021, patient is basically about the same. Remains intubated and mechanically ventilated. Remains on propofol at 30 mcg/kg/m, not requiring any other sedation medication, patient had poor tolerance to Precedex. Today I recommended a trial of Ativan 1 mg IV push every 4 hours when necessary, hoping we can taper down and possibly discontinue propofol altogether. Patient is hemodynamically stable, not requiring any pressors. Remains on assist control rate of 22 volume control plus of 450 FiO2 50% remains on antibiotics and antifungal. Remains on Protonix for GI prophylaxis. And he is off cefepime. ABG today showed a pO2 of 75 pCO2 of 42 pH of 7.47. WBC count is 9.4 hemoglobin 11.6. Electrolytes and renal profile are normal. Patient remains on the COVID-19 cocktail. Lovenox 40 mg subcu daily. He remain s on Zyvox. Remains on ascorbic acid. And on zinc. Patient is also on vitamin D Reevaluated today on 02/03/2021, patient remains in the ICU, intubated and mechanically ventilated. Finally the patient is off propofol, he is on Ativan when necessary, he is also on Seroquel, and overall I believe the patient is making a significant improvement in his intermittent episodes of agitations, and his requirement for sedation. Today I reviewed his ventilator settings and he is on assist control rate of 22 tidal volume 450 FiO2 50% PEEP of 6. His chest x-ray continues to show some bibasilar infiltrates bilaterally. Minimal improvement compared to his baseline. ABG showed a pO2 of 67 pCO2 43 pH of 7.47 hence I recommended that that the patient goes on a trial of weaning with a pressure support of 10 and CPAP. WBC count is 9.2 hemoglobin is 10.9. Medication list was reviewed, patient is on vitamin C, Peridex, vitamin D, Decadron 6 mg IV push twice a day, Lovenox 40 mg subcu daily, Dilaudid when necessary, Ativan when necessary, Zyvox 600 mg IV to 12 hours, Protonix 40 mg IV push daily Seroquel 100 mg by mouth twice a day voriconazole, and zinc. Progress note dated 02/04/2021. 55-year-old male, seen in room 251. The patient was admitted on January 11. He came in with woodruff virus associated pneumonia. He came to the intensive care unit on January 13, and was intubated on the . The patient underwent tracheostomy and PEG tube placement on January 23. Currently, he sitting at the bedside. He is on pressure support of 10 and CPAP of 5 and 45%. He's been on that for 24 hours. He looks very comfortable. I told respiratory therapist that we could try to transition him to a trach collar. The patient is receiving saline at KVO. He is getting vital AF at 50 mL an hour, which is goal. The patient is on multiple antibiotics including voriconazole and Zyvox, neither of which needs to be continued. Blood gases showed a pO2 of 87, pCO2 of 37, and a pH is 7.52. White count 9.9, hemoglobin 11.1, hematocrit 33.7, platelet count 230,000. Sodium 135, potassium 4.3, chlorides 101, CO2 29, anion gap 5, BUN 40, creatinine 0.96. Chest x-ray shows diffuse bilateral infiltrates consistent with coronavirus pneumonia and/or ARDS. Progress note dated 02/05/2021. 55-year-old male, again seen in room 251. The patient was admitted on January 11. He was admitted with a diagnosis of coronavirus associated pneumonia. He came to the intensive care unit on January 13, and was intubated for respiratory failure on the . The patient underwent tracheostomy and PEG tube placement on January 23. Since yesterday, at 10 AM, he's been on 40% trach collar. He seems to be doing relatively well. He is not receiving any IV fluids. He is getting vital AF at 50 mL an hour, which is goal. If E stable tomorrow, he can move out of the intensive care unit. Currently, white count is 11.2, hemoglobin 11.7, hematocrit 37, and platelet count 318,000. Sodium 136, p otassium 5, chlorides 99, CO2 32, anion gap 5, BUN 38, creatinine 1. Chest x- rays consistent with diffuse bilateral infiltrates, and is essentially unchanged. Progress note dated 02/06/2021. 55-year-old male, again seen in room 251. The patient was admitted to the hospital on January 11. The patient was admitted with a diagnosis of coronavirus associated pneumonia. He came to the intensive care unit on January 13, and was intubated for respiratory failure on the . The patient underwent tracheostomy and PEG tube placement on January 23. For the last 48 hours, the patient has been either on trach collar or T-piece. The patient is not receiving any IV fluids. The patient is a candidate to go to the general medical floor without telemetry. No new labs or x-rays today. Progress note dated 02/08/2021. The T5-year-old male, seen in room 355. The patient was admitted back on January 11. He was admitted with a diagnosis of coronavirus associated pneumonia. He came to the intensive care unit on January 13, and was intubated for respiratory failure following day, on January 14. The patient underwent tracheostomy and PEG tube currently, he is resting comfortably. He is on trach collar at 80%. He is getting tube feeds at 50 mL an hour. No additional fluids are running. He looks very comfortable. White count 18.7, hemoglobin 12, hematocrit 37.7, and platelet count 244,000. Sodium potassium normal, chloride normal, CO2 28, anion gap 9, BUN and creatinine were 34 and 1.02. Progress note dated 02/09/2021. 55-year-old male seen in room 355. The patient was admitted way back on January 11. He was admitted with a diagnosis of coronavirus associated pneumo manuel and hypoxemic respiratory failure. The patient came to the intensive care unit on January 13, and was intubated for respiratory failure on 01/14/2021. For failure to wean, the patient received a tracheostomy and PEG tube subsequently. He remains on trach collar at 80%. He's not receiving any IV fluids. He is getting tube feedings, through his PEG tube. No new lab data today to report. No recent chest x-rays to report either. Objective - Vital Signs Vital signs: Vital Signs Temp 98.3 F 02/09/21 11:20 Pulse 81 02/09/21 11:20 Resp 16 02/09/21 11:20 BP 106/60 02/09/21 11:20 Pulse Ox 93 L 02/09/21 11:20 Intake & Output 02/08/21 02/09/21 02/09/21 18:59 06:59 18:59 Intake Total 356 125 365 Output Total 250 700 150 Balance 106 -575 215 Weight 90.5 kg 94.5 kg Intake: Oral 356 240 Tube Feeding 125 125 Output: Urine 250 700 150 Other: Voiding Method Urinal Urinal Urinal ABP, PAP, CO, CI - Last Documented Arterial Blood Pressure 118/93 - Exam No acute distress, oriented 3, sitting at the bedside, on a trach collar. HEENT examination is grossly unremarkable. Neck supple. Full range of motion. No adenopathy thyromegaly or neck vein distention. Midline tracheostomy tube noted in good position. Cardiovascular examination reveals regular rhythm rate. S1-S2 normal. No S3 or S4. No discernible murmur noted. Heart sounds are distant. Heart rate 81 bpm. Lungs reveal guarded bilateral rhonchi. Breath sounds equal bilaterally. No wheezes or crackles. Saturations are between 91-93 %. Abdomen soft bowel sounds are heard. No masses or tenderness. PEG tube noted. Extremities are intact. No cyanosis clubbing or edema. Skin is without rash or lesion. Neurologic examination is brief but nonfocal. - Labs CBC & Chem 7: 02/08/21 08:50 02/08/21 08:50 Labs: Abnormal Lab Results - Last 24 Hours (Table) 02/08/21 02/08/21 02/09/21 Range/Units 17:34 23:15 06:21 POC Glucose (mg/dL) 188 H 216 H 159 H (75-99) mg/dL 02/09/21 Range/Units 12:01 POC Glucose (mg/dL) 162 H (75-99) mg/dL Microbiology - Last 24 Hours (Table) 02/08/21 08:50 Blood Culture - Preliminary Blood No Growth after 24 hours Assessment and Plan Assessment: Acute hypoxemic respiratory failure secondary to coronavirus associated pneumonia, with intubation and mechanical ventilation, initiated on January 14, for worsening hypoxemia, and subsequent tracheostomy and PEG tube placement on January 23, 2021. Acute respiratory distress syndrome (ARDS), secondary to coronavirus associated pneumonia. Previous history of bilateral pulmonary emboli, and left leg DVT, 2016, currently on IV heparin empirically. Critical illness polyneuropathy. History of osteoarthritis. No prior history of tobacco use. Acute kidney injury, resolved. Plan: Plan dated 01/14/2021. Currently, the patient's on appropriate medication. I did tell the patient, that he may require intubation and mechanical ventilation. Currently, he looks so good despite being on BiPAP, the patient will try to ride it out a bit longer. Should he fatigue, or should his saturations drop, we will do an elective intubation and mechanical ventilation. Will likely need an art line and a central line. Labs are reviewed. Prognosis is guarded. We will continue to follow make recommendations where appropriate. Plan dated 01/15/2021. Yesterday, the patient developed worsening hypoxemic respiratory failure, and was intubated. The patient remains on vitamin C, vitamin D3, and zinc. In addition, the patient is being sedated with, and paralyzed with Nimbex. The patient is getting Dilaudid when necessary. The patient remains on IV heparin, and Decadron. The patient is also getting BASHIR. Obviously, the patient is very critically ill, and we will continue to follow the patient and make recommendations were appropriate. Prognosis is guarded. Plan dated 01/16/2021. The patient remains on the mechanical ventilator. We have been able to wean off the norepinephrine. Remains on propofol, and Nimbex. He is getting tube feeds at goal. The patient gets Lasix 40 mg IV push. We will attempt to prone the patient for 16 hours. The FiO2 was changed to 60%. We will continue to follow make recommendations where appropriate. Prognosis is guarded. In addition to vitamins, and Decadron, he remains on BASHIR. Plan dated 01/17/2021. The patient is not quite ready to come off the ventilator. He still requiring 6% FiO2, and PEEP of 15. The patient has shown some improvement since he was intubated a couple days ago. He remains on IV heparin, propofol, and paralysis with Nimbex. The patient was proned for 16 hours yesterday. His endotracheal tube may need to be changed. He remains on vital AF. We will continue to follow and make recommendations were appropriate. Prognosis is certainly guarded. He remains on vitamin C, vitamin D3, zinc, Decadron, and BASHIR. Plan dated 01/18/2021. The patient remains on the mechanical ventilator. He remains on heparin, propofol, Nimbex, and tube feeds. The patient's oxygenation has improved a bit, and once he hits an FiO2 of 50% or less, we will be able to start weaning down the PEEP. Patient remains on vitamin C, vitamin D3, zinc, Decadron, and BASHIR. We will continue to follow make recommendations where appropriate. The patient remains on BASHIR. Plan dated 01/20/2021. The patient was seen by my nurse practitioner along with me yesterday. The patient remains on the mechanical breathing machine. He remains on heparin, propofol, Nimbex, and tube feeds. In addition, the patient is on vitamin C, vitamin D3, zinc, Decadron, and BASHIR. In my opinion, although last couple of days, the patient's chest x-ray has shown some improvement, and his oxygenation has improved. He is currently on 50% with PEEP of 15. We will continue to follow make recommendations were appropriate. Prognosis is guarded. Medications, x-rays, and labs are all reviewed. Plan dated 02/04/2021. The patient had a tracheostomy and PEG tube placement placed on January 23. Currently he is resting comfortably at bedside, on pressure support of 10 and C PAP of 5. He is receiving 45% FiO2. We are going to try to get him onto trach collar today. We'll DC the voriconazole and Zyvox. The patient continues on saline at KVO and tube feeds at goal of 50 mL an hour. Blood gases show pO2 of 87, pCO2 37, and a pH is 7.52. We will continue to follow and make recommendations where appropriate. Prognosis is still guarded. Plan dated 02/05/2021. The patient has been on trach collar since 10:00 yesterday. He is doing very well. The patient is not receiving any IV fluids. The patient remains on vitamin C, vitamin D3, and zinc. In addition, the patient is on Lovenox and Decadron. Additional recommendations and suggestions are forthcoming. Pro gnosis is guarded. I will cut back on the Decadron to once a day. Plan dated 02/06/2021. The patient remains in the intensive care unit, room 251. The last 48 hours or so, the patient has been on trach collar, or on a Mooney trial. The patient is not receiving any IV fluids. No new labs to report. No new x-rays to report. The patient's medications include vitamin C, vitamin D3, zinc, Decadron, and Lovenox. Additional recommendations and suggestions are forthcoming. Prognosis is guarded. We will continue to follow this patient and make recommendations where appropriate. Hopefully, the patient could be considered for transfer out to the general medical floor. Plan dated 02/08/2021. The patient is seen in room 355. Previously, he was in the intensive care unit. He's currently on a trach collar 80%. He's not receiving any IV fluids. He is receiving tube feeds. The patient is on vitamin C, vitamin D3, and zinc. The patient also remains on Decadron and Lovenox. Additional recommendations and suggestions are forthcoming. The patient has been weaned off of all antibioti cs. We'll continue to follow make recommendations where appropriate. Prognosis is guarded. Plan dated 02/09/2021. The patient appears to be doing well. He is on trach collar 80%. He's not receiving any IV fluids. The patient is on vitamin C, vitamin D3, and zinc. He remains also on Decadron and Lovenox. Additional recommendations and suggestions are forthcoming. We will continue to follow make recommendations where appropriate. Prognosis is guarded. We will order a chest x-ray for gabi santoro. Time with Patient: Less than 30
--- NOTE | 2021-02-09 17:09 | P.PN ---
Subjective Progress Note Date: 02/09/21 HISTORY OF PRESENT ILLNESS This is a 55-year-old male patient of Dr. 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 Patient states he has not been feeling well since Thursday. He said shortness of breath cough is nonproductive along with fever and chills, exertional dyspnea. He denies having any nausea vomiting or diarrhea. He denies any close contacts to known Covid people. He states his temperature is been up to 102.7 at home. He is not vaccinated. Patient presented to [facility] emergency center and found to be febrile at 101.1, heart rate 90, blood pressure 122/80, pulse ox 85% on room air. CBC revealed platelet count of 128. D-dimer 0.82. Sodium 131 otherwise electrolytes and renal function were normal. Blood sugar 147. Troponin negative. Coronavirus PCR positive. Chest x-ray reveals patchy bilateral airspace disease especially in the mid and lower lungs. Correlate for multifocal pneumonia including Covid 19 pneumonia. CTA of the chest was suboptimal study without central acute pulmonary embolism. Bilateral multifocal and confluent groundglass opacities right greater than left and greater in the lower lungs consistent with known Covid 19 infection. Patient is seen today in the emergency center waiting for bed on the [facility] floor, started on Remdesivir, Lovenox, dexamethasone and vitamin supplements, consult with pulmonary medicine. 01/12: Patient is comfortable, however he requires 40 L of oxygen via airvo sats 88-89%, he feels better today compared to his nonrebreather mask yesterday, patient did not sleep well, patient does not have any cough, however he does have shortness of breath. Patient denies any aspiration, appetite is still marginal, patient has insomnia vitals, blood sugar currently is 243, creatinine of 0.98, d-dimer is 0.84, CRP is elevated, LDH is elevated, venous Doppler, shows chronic DVT, left popliteal, in the posterior tibial veins, without any obstruction of flow. No acute DVT identified CTA, shows suboptimal, without central acute pulmonary emboli, has bilateral multifocal and confluent groundglass opacities, right greater than left, lower lobe, consistent with COVID-19 infection and remdesivir discontinued by pulmonary today and is outside of the window for remdesivir 01/13: Patient is on aerosol 14 L, with nonrebreather mask, 15 L, hypoxemia n oted on 88%, worse with coughing, however his nonrebreather mask is very loose. Nurse is worriedwith the turn of events, and requested an ICU transfer, Dr. Canales has seen the patient, and is stable for floor management at this time, patient is not significant tachypnea, and is not tiring out. There is no hemoptysis, and mucus is productive, patient's doing incentive spirometry, up 2 L. 01/14: Patient remains in the intensive care unit, he was intubated this morning as he was desaturating with BiPAP. He has been afebrile, heart rate 73, blood pressure 93/47, pulse ox 90%. CBC is unremarkable. D-dimer 12.04. Sodium 135, creatinine 0.82. LDH 2929, C-reactive protein 5.2. Sputum culture is in progress. He has had good urine output. Chest x-ray reveals no evident convocation from catheters. Bilateral airspace disease. 01/15: Patient remains in the intensive care intubated and on mechanical ventilation with tidal volume 450, FiO2 80, PEEP of 15. Patient has been started on norepinephrine and remains on propofol, heparin drip, Nimbex. Repeat blood work revealed unremarkable CBC. Creatinine 0.88. Capillary blood glucose running between 195 and 215. AST 126, ALT 183, alkaline phosphatase 109. Sputum culture is in progress. Repeat chest x-ray reveals correlate for pneumonia versus edema, ARDS. Patient is continued on vitamin supplements, heparin drip, dexamethasone and Baricitinib. patient remains in intensive care intubated on mechanical ventilator at FiO2 60 percent PEEP respiratory rate of 30 tidal volume 450. Continues to maintain saturations between 94-95% on the current settings. Vitals otherwise stable labs reviewed today WBC is 9.5 hemoglobin 12.4 d-dimer is elevated at 4.98. ABG obtained today suggest pH of 7.4 pO2 53 bicarb 26 on 50% FiO2. Creatinine stable at 0.78 glucose is maintained between 145-190. LDH 1564 CRP is elevated at 4. Patient's inflammatory markers trending down. Patient's vent settings increased to 80% for inadequate oxygenation. Chest x-ray reviewed showed bilateral infiltrate consistent with coronavirus associated pneumonia. Patient continues intubated on propofol 70 bike but patient examined Nimbex 1.25 g daily per minute. Patient to receive 1 dose of Lasix today. Continue to remain on baricitinib day 2 PAtient remains intubaated since . patient continues too remain on assist control, TV 450 , peep 15 and fio2 of 60 %. patient was proned for 16 hours yesterday. CXR was reviewed, COVID pneumonia but no significant change was noted, Will repeat inflammatory markers tomorrow. Vent managment per junior linux administrator. Patient contines to remain propofol , nimbex. Continue on lovenox, baricitinib, dexamethasone and vit supplement 01/18 patient continues to remain intubated. Covid pneumonia. Is currently on assist control respiratory rate of 30 tidal volume 450 FiO2 of 55% and PEEP of 15. She is currently on heparin drip, propofol and Nimbex. Patient continues to tolerate prone positioning 16 hours overnight. Continues to receive dexamethasone, vitamin supplement, anticoagulation with heparin, baricitinib. Labs are reviewed patient has a hemoglobin stable at 12.2. This morning pH 7.48 PCO2 44 bicarb 32 creatinine 0.73 AST 100 chest x-ray done this morning suggestive of ARDS and pneumonia 01/19 patient continues to remain intubated currently on assist-control vent with a rate of 30 tidal volume 450 FiO2 50 and PEEP of 15. Continues to remain on propofol and Nimbex. Continue heparin drip for anticoagulation. Remains on Baricitinib , vitamin supplementation and dexamethasone. Labs reviewed hemoglobin stable at 12 PTT 53 blood gas obtained today suggest a pH of 7.45 pCO2 46 pO2 69 bicarb 32 BUN 23 creatinine 0.0.8 glucose 122 AST ED ALT 226. inflammation markers ordered for tomorrow last set was obtained on 01/12 01/20 Intubated. Vitals reviewed patient's afebrile pulse of 68 respiratory rate 30 blood pressure. 94/56 oxygen 91% on 50% FiO2. Patient remains on assist control, tidal volume 450 respiratory rate 30 FiO2 of 50% and PEEP of 15. He is currently on Pneumovax at 3 mics per KG per minute propofol at 50 Micro-K to Coumadin and heparin drip. Patient labs are reviewed hemoglobin is 11.7. Arterial blood gas at 50% FiO2 has a pH of 7.47 pO2 of 77 bicarb of 31 BUN 24 creatinine 0.7 LDH [id number] CRP 8.70. CRP is slightly elevated with improvement in LDH. Continue to monitor patient with the goal with treatment on heparin, as dexamethasone, vitamin supplementation and Baricitinib . Blood sugar are well controlled. 01/21: Patient remains intubated and on mechanical ventilation with tidal volume 400, FiO2 40 and PEEP of 16. Patient is on propofol and fentanyl drips. He is on tube feedings to be increased to 26 ML's per hour and tolerating. She he has had 100 250 ML's of urine output per hour. He has been afebrile, heart rate 70, respiratory rate 30, blood pressure 115/64, pulse ox 93%. Repeat blood work reveals WBC 7.4, hemoglobin 12, platelet count 310. D-dimer 1.23. Sodium 134, BUN 24 and creatinine 0.73. Blood sugars are running between 101 and 164. AST 105, ALT 261, alkaline phosphatase 135. LDH 999. C-reactive protein 13.5. Albumin 2.9. Gallbladder ultrasound reveals nonspecific pattern of liver can be seen with hepatic steatitis or hepatocellular disease including hepatitis. The chest x-ray reveals bilateral patchy airspace disease stable. 01/22: Remains in the intensive care unit intubated and on mechanical ventilation with tidal volume 400, FiO2 40, PEEP of 13. Paralytics for pause this morning and patient had significant drop in his pulse ox. He is currently on propofol, fentanyl and Nimbex. He has been afebrile, heart rate 73, blood pressure 99/63, pulse ox 90%. Repeat blood work reveals hemoglobin 11.6. Creatinine 0.81. Blood sugars are running between 98 and 155. AST 85, ALT 260, alkaline phosphatase 132. LDH 954, C-reactive protein 6.8. Repeat chest x-ray reveals bilateral patchy diffuse airspace disease stable. Patient is continued on Baricitinib, Lovenox 40 mg subcu daily, dexamethasone 6 mg IV push and vitamin supplements 01/23: Remains in the intensive care unit on mechanical ventilation with tidal volume 400, FiO2 40 and PEEP of 10. Patient is scheduled for trach and PEG tube placement today. He is currently on propofol, fentanyl and Nimbex. Patient remains afebrile, heart rate 69, respiratory rate 30, blood pressure 120/76, pulse ox 93%. Repeat blood work reveals creatinine is 0.71. WBC 8.3, hemoglobin 12.9. AST 111, ALT 328, alkaline phosphatase 153. Blood sugars have been running between 92 and 193. Sputum culture is showing Corynebacterium species from 01/21 and Aspergillus from 01/14. Repeat chest x-ray reveals bilateral patchy diffuse airspace disease stable. Patient is continued on Baricitinib, Lovenox 40 mg subcu daily, dexamethasone 6 mg IV push and vitamin supplements 01/24: Patient is status post trach and PEG tube done yesterday by Dr. Olivares. Patient is off Nimbex and he has his eyes open but not following commands. Patient's is planning to come in today to see him. He remains on ventilator with tidal volume 300, FiO2 50 and PEEP of 10. Repeat chest x-ray reveals diffuse bilateral infiltrate stable. Antibiotics have been changed to ce fepime and patient started on IV Voriconazole. Patient is continued on dexamethasone, Lovenox and vitamin supplements. WBC 17.2, hemoglobin 12.3. Sodium 130, BUN 21 creatinine 0.83. Total bilirubin 2, AST 54, ALT 248, alkaline phosphatase 132. Capillary blood glucose running between 80 and 193. 01/25: Patient remains in the intensive care unit on mechanical ventilation with tidal volume 400, FiO2 is been increased to 100 and PEEP of 12. Patient is currently on propofol, and was started on vasopressors yesterday and is status post 2 L of IV fluid. Temperature max 101.3. Pulse 87, respiratory rate 33, blood pressure 120/57, pulse ox 95%. groundwater monitoring technician is a sinus rhythm. Repeat blood work reveals WBC 8.3, hemoglobin 11. Sodium 136, chloride 108. Creatinine is 0.83. Calcium 7.9. Total bilirubin 2.7, AST 64, ALT 171, alkaline phosphatase 127. LDH 1187. C-reactive protein 32.6. Blood sugars are running between 133 and 173. Urine culture is showing gram-negative bacilli. Blood culture from 01/24 showing no growth at 24 hours. Repeat chest x-ray reveals clear to megaly with bilateral confluent mid to lower lung opacities consistent with: 19 infection redemonstrated. No significant change. Patient is currently on cefepime, Zyvox and there, so for worsening bilateral pulmonary infiltrate, pneumonia. 01/26: Patient remains in intensive care unit on mechanical ventilation with tidal volume 450, FiO2 80 and PEEP of 12. He has been afebrile for greater than 24 hours. Heart rate 80, blood pressure 132/70, pulse ox 86%. He does have leaking around the tracheostomy site. Repeat blood work reveals WBC 8, hemoglobin 11.1, platelet count 291. Sodium 135, potassium 5.8, creatinine 1.15. Total bilirubin 1.8, AST 101, ALT 194, alkaline phosphatase 135. LDH 1156. C-reactive protein 35.7. Blood sugars are running between 154 and 183. Patient will be started on Levemir 10 units at bedtime. He is continued on cef epime, Zyvox and voriconazole. 01/27: Patient remains intubated and on mechanical ventilation with tidal volume 400 50, FiO2 60, PEEP of 12. Plan is to try and wean oxygen down today. Tracheostomy tube has been manipulated and repositioned. He is not requiring vasopressors, currently on propofol. Chest x-ray reveals no significant interval change. Patient has had good urine output with BUN of 37 creatinine 1.28. Other lab work reveals WBC 9.8, hemoglobin 10.7. D-dimer 5.45. Total bilirubin 1.4, AST 153, ALT 282, alkaline phosphatase 138, LDH 1073. C-reactive protein 16.3. ProCalcitonin 10.1. 01/28: Remains in the intensive care unit, intubated and on mechanical ventilation with tidal volume 450, FiO2 of 60 and PEEP of 10. Patient is responsive, follows a few simple commands. He is currently on antibiotics in the form of cefepime, Zyvox and voriconazole. Patient is also continued on Decadron and Lovenox. Repeat blood work reveals WBC of 10, hemoglobin 10.5. D- dimer 5.63. C-reactive protein 6.2. LDH 1025. Total bilirubin 1.3, AST 95, ALT 250. Patient is on tube feedings at goal. He has had good urine output. Social work will start process for [facility] with anticipation of him being ready by the end of the week. 01/29 patient is currently in the ICU on with tracheostomy with tidal volume 450 FiO2 decreased to 55 this morning with PEEP of 10. Patient is responsive get agitated once propofol is discontinued. Patient is getting of diarrheal ordered every few hours to help with pain control. Currently stays on antibiotic in the form of cefepime, Zyvox and voriconazole. Urine output is appropriate in her on 75 200 mL per hour. Continues to remain on Decadron and Lovenox. He's currently off norepinephrine off Precedex is off fentanyl. Chest x-ray reviewed has bilateral interstitial infiltrate not changed. Labs reviewed, WBC 11.1 h emoglobin is 11.4 R blood gas this morning on 60% FiO2 suggest EF pO2 of 65 bicarb 26 blood sugar controlled ranging from 156-197. Ventilator management per pulmonary as reduce the FiO2 to 55 . Repeat blood gas in 24 hours. Patient initiating Seroquel 50 twice a day for agitation. Discussion with the nurse was made to reduce the Seroquel to 25 twice a day if patient appears to be sedated 01/30: Patient remains in intensive care unit, intubated status post tracheostomy and PEG tube placement. He is on tidal volume 450, FiO2 of 50 and PEEP is down to 10. He is able to follow some simple commands. Pulmonary medicine is planning to discontinue propofol and switched to Precedex. He is on tube feedings. Social work is following for possible discharge to [facility] by the end of the week. 01/31: Patient remains in the intensive care unit intubated and on mechanical ventilation status post PEG tube and trach. Tidal volume 450, FiO2 50 and PEEP of 10. Patient is on propofol. He is on PEG tube feedings at goal. Patient is continued on Lovenox, Decadron, supplements. Cefepime has been discontinued and he is continued on Zyvox and 4, his old. Social work is following closely for discharge planning however at this time, there are no facilities that will accept the patient. 02/01: Patient is out of Covid isolation. Patient remains on mechanical ventilation with tidal volume 450, FiO2 50, PEEP of 10. Patient is on propofol which is to be weaned off today. He still has Sim catheter with good urine output. Feedings are at goal. Patient has occasional cough, mild edema. Patient is refusing IV Dilaudid for pain. Bowel movements been soft but no diarrhea. Patient is afebrile, heart rate 68, respiratory rate 24, blood pressure 130/75, pulse ox 92%. 02/02: Patient is seen in ICU he is currently out of Covid isolation. Remains on mechanical ventilation with trach. Tidal volume 450, rate of 22 with a PEEP of 8 FiO2 of 50%. Patient is currently on propofol which will continue to be weaned today with the addition of Ativan. Sim catheter in place with good urine output. Feedings are at goal. Does have occasional cough, mild edema. 02/03: Patient is seen in ICU remains on mechanical ventilation with trach. Tidal volume 450 rate of 22 with a PEEP of 6 FiO2 of 45%. Patient is off of propofol. Discussion for transitioned to CPAP machine for today. Sim catheter in place with good urine output. Feedings are at goal. Patient does have occasional cough continues have mild edema. Patient is able to follow commands bilateral upper extremity strength equal. 02/04: Patient remains in the intensive care unit. He is currently on trach collar at 40% FiO2 with pulse ox of 97%. He is afebrile, heart rate in the 50s to 80s, blood pressure 105/69. Repeat blood work reveals WBC 9.9, hemoglobin 11.1, platelet count 230. Sodium 135, potassium 4.3, chloride 101, CO2 29, BUN 40 creatinine 0.96. Blood sugars are running between 125 and 211. Repeat chest x-ray reveals findings consistent with Covid pneumonia consider ARDS. Patient is now slowly progressing and his goal is to get home by [place]. 02/05: Patient remains in the intensive care unit. He is on trach collar at 40% FiO2 with pulse ox of 87 and 95%. Blood pressure 103/66, heart rate in the 50s and 60s, afebrile. Patient is able to mouth words and cough is better today. He is needing to be suctioned for secretions. He is nothing by mouth and on peg tube feedings at goal. Repeat blood work reveals hemoglobin 11.7, WBC 11.2. Sodium 136, potassium 5, chloride 99, CO2 32, BUN 38 and creatinine 1. Blood sugars are running between 125-197. Repeat chest x-ray consistent with history of pneumonia. Patient may move out of the ICU tomorrow. 02/06: A remains in the intensive care unit. His daughter is at the bedside. He has been downgraded to [facility] with telemetry and waiting for bed. He underwent barium swallow today and found no aspiration or penetration. Speech therapy has recommended regular diet with thin liquids. His secretions are much less and he is coughing less. He has been afebrile, heart rate in the 70s, b lood pressure 103/59, pulse ox 9094% on 40% trach collar. Blood sugars are running between 123 and 165. 02/07: Patient is today on the cardiac stepdown unit. He is on trach collar at 80% FiO2 with pulse ox of 91%. He has been afebrile, heart rate 107, blood pressure 101/67. Patient a 25% of lunch and supper yesterday, he is enjoying being able to eat. He remains on PEG tube feedings as well . The patient has been approved for Medicaid and social work will discuss option of ECF with family. We will add in a consult for Dr. Nuñez for inpatient rehab. 02/08: Patient has been seen by Dr. Nuñez for possible inpatient rehab with goal of discharge on Thursday. Patient developed a fever 102 this morning at 4 AM, heart rate 101, blood pressure 97/64. Pulse ox is percent on 80% trach collar. Capillary blood glucose running between 114 and 209. We have ordered stat blood culture. Patient is on PEG tube feedings and oral diet. Repeat blood work reveals WBC 18.7, hemoglobin 12, platelet count 244. Electrolytes are normal. BUN 34 creatinine 1.02. Blood sugar 151. /18: Patient is doing okay, and the medical floor, still on trach at 80%, patient's 18 on his own unsupervised, has rhonchi on breathing, PEG tube infusing VITAL 1.2, at 50 mL an an hour, on top of oral supplementation and sugar, twice a day. Patient is swallowing meds, any difficulty, is at bedside, updated regarding plans for possible inpatient rehab, still needs to be determined. REVIEW OF SYSTEMS. Constitutional: Noted fever, no chills, no night sweats. No weight change. Reports weakness, reports fatigue or lethargy. No daytime sleepiness. EENT: No headache. No blurred vision or double vision, no loss of vision. No loss of Hearing, no ringing in the ears, no dizziness. No nasal drainage or congestion. No epistaxis. No sore throat. Lungs: No shortness of breath, noted occasional cough, noted sputum production, proving. No wheezing. Cardiovascular: No chest pain, no lower extremity edema. No palpitations. No paroxysmal nocturnal dyspnea. No orthopnea. No lightheadedness or dizziness. No syncopal episodes. Abdominal: no abdominal discomfort. No nausea, vomiting. no diarrhea. No constipation. No bloody or tarry stools. no loss of appetite. Genitourinary: No dysuria, increased frequency, urgency. No urinary retention. Musculoskeletal: No myalgias. No muscle weakness, no gait dysfunction, no frequent falls. No back pain. No neck pain. Integumentary: No wounds, no lesions. No rash or pruritus. No unusual bruising. No change in hair or nails. Neurologic: No aphasia. No facial droop. No change in mentation. No head injury. No headache. No paralysis. No paresthesia. Psychiatric: No depression. No anxiety. No mood swings. Endocrine: No abnormal blood sugars. No weight change. No excessive sweating or thirst. PHYSICAL EXAMINATION Gen: This is a 55-year-old male. He is resting in bed, on trach collar at 80% FiO2, status post trach and PEG. HEENT: Head is atraumatic, normocephalic. Pupils equal, round. Sclerae is anicteric. Tracheostomy intact. NECK: Supple. No JVD. No lymphadenopathy. LUNGS: Crackles bilaterally. No accessory muscle usage. No intercostal retra ctions. HEART: Regular rate and rhythm. No murmur. ABDOMEN: Soft. Bowel sounds are present. No masses. No tenderness. PEG tube in place. EXTREMITIES: No pedal edema. No calf tenderness. NEUROLOGICAL: Patient is awake, alert and oriented 3, and able to follow commands and answer questions appropriately. ASSESSMENT AND PLAN 1. Acute hypoxic respiratory failure secondary to Covid 19 pneumonia and possible secondary pneumonia, gram-negative and fungal. Patient required intubation 01/14. Patient is status post trach and PEG tube placement 01/[address] Olivares. Patient started on January 12/2021 on baricinib 4 mg daily, discontinued on 01/24. Continue dexamethasone 6 mg IV daily, Lovenox 40 mg subcu daily, and vitamin supplements. consult with Dr. Nuñez for IP rehab. 2. Acute respiratory distress syndrome secondary to coronavirus pneumonia. 3. Acute septic shock requiring vasopressors. Patient is status post IV fluid bolus and off vasopressors. 4. History of bilateral pulmonary emboli and DVT in 2015. CTA negative for PE. Not on chronic anticoagulation. 5. Acute transaminitis secondary to Covid 19. 6. Generalized osteoarthritis. 7. Degenerative changes in the cervical spine status post fusion of C5-6. 8. 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 9. Elevated liver function tests, transaminitis. 10. Hyperglycemia secondary to steroids. Patient is on NovoLog scale, Levemir 10 units at bedtime added. 11. Severe hyperkalemia, resolved. 12. GI prophylaxis. Protonix. 13. DVT prophylaxis. Lovenox. 14. Acute agitation on ventilator.Seroquel to 100 mg twice daily by junior linux administrator. 15. Moderate protein calorie malnutrition requiring PEG tube. Patient's diet advanced to regular with thin liquids by mouth, continue PEG tube feedings until oral diet is sufficient. DISCHARGE PLAN IP rehab Thursday Vital Signs - 24 hr 02/08/21 02/09/21 02/09/21 20:00 00:00 03:16 Temperature 98.8 F 98.4 F Pulse Rate [ 92 71 Noise Abatement Engineer ] Respiratory 20 20 Rate Blood Pressure 111/60 102/66 [Right Arm] O2 Sat by Pulse 94 L 94 L 92 L Oximetry 02/09/21 02/09/21 02/09/21 04:00 09:10 11:20 Temperature 98.3 F 97.1 F L 98.3 F Pulse Rate [ 72 93 81 Noise Abatement Engineer ] Respiratory 19 18 16 Rate Blood Pressure 109/67 106/69 106/60 [Right Arm] O2 Sat by Pulse 91 L 93 L 93 L Oximetry 02/09/21 15:35 Temperature 98.5 F Pulse Rate [ 75 Noise Abatement Engineer ] Respiratory 16 Rate Blood Pressure 114/72 [Right Arm] O2 Sat by Pulse 97 Oximetry Laboratory Results WBC 18.7 k/uL (3.8-10.6) H 02/08/21 08:50 RBC 3.93 m/uL (4.30-5.90) L 02/08/21 08:50 Hgb 12.0 gm/dL (13.0-17.5) L 02/08/21 08:50 Hct 37.7 % (39.0-53.0) L 02/08/21 08:50 MCV 95.9 fL (80.0-100.0) 02/08/21 08:50 MCH 30.5 pg (25.0-35.0) 02/08/21 08:50 MCHC 31.8 g/dL (31.0-37.0) 02/08/21 08:50 RDW 14.3 % (11.5-15.5) 02/08/21 08:50 Plt Count 244 k/uL (150-450) 02/08/21 08:50 MPV 8.0 02/08/21 08:50 Neutrophils % 86 % 02/08/21 08:50 Neutrophils % (Manual) 58 % 01/31/21 04:05 Band Neuts % (Manual) 13 % 01/31/21 04:05 Lymphocytes % 5 % 02/08/21 08:50 Lymphocytes % (Manual) 9 % 01/31/21 04:05 Monocytes % 4 % 02/08/21 08:50 Monocytes % (Manual) 2 % 01/31/21 04:05 Eosinophils % 4 % 02/08/21 08:50 Eosinophils % (Manual) 8 % 01/31/21 04:05 Basophils % 0 % 02/08/21 08:50 Metamyelocytes % 8 % 01/31/21 04:05 Myelocytes % 2 % 01/31/21 04:05 Neutrophils # 16.0 k/uL (1.3-7.7) H 02/08/21 08:50 Neutrophils # (Manual) 7.60 k/uL (1.3-7.7) 01/31/21 04:05 Lymphocytes # 1.0 k/uL (1.0-4.8) 02/08/21 08:50 Lymphocytes # (Manual) 0.97 k/uL (1.0-4.8) L 01/31/21 04:05 Monocytes # 0.7 k/uL (0-1.0) 02/08/21 08:50 Monocytes # (Manual) 0.22 k/uL (0-1.0) 01/31/21 04:05 Eosinophils # 0.8 k/uL (0-0.7) H 02/08/21 08:50 Eosinophils # (Manual) 0.86 k/uL (0-0.7) H 01/31/21 04:05 Basophils # 0.1 k/uL (0-0.2) 02/08/21 08:50 Metamyelocytes # (Man) 0.86 k/uL (0) H 01/31/21 04:05 Myelocytes # (Manual) 0.22 k/uL (0) H 01/31/21 04:05 Nucleated RBCs 0 /100 WBC (0-0) 01/31/21 04:05 Manual Slide Review Performed 01/31/21 04:05 Toxic Granulation Present 01/31/21 04:05 Hypochromasia Slight 01/30/21 04:42 PT 10.0 sec (9.0-12.0) 01/14/21 03:27 INR 0.9 (<1.2) 01/14/21 03:27 APTT 47.2 sec (22.0-30.0) H 01/21/21 05:10 D-Dimer 5.63 mg/L FEU (<0.60) H 01/28/21 04:55 Sample Site R radial 02/04/21 05:12 ABG pH 7.52 (7.35-7.45) H 02/04/21 05:12 ABG pCO2 37 mmHg (35-45) 02/04/21 05:12 ABG pO2 87 mmHg (83-108) 02/04/21 05:12 ABG HCO3 30 mmol/L (21-25) H 02/04/21 05:12 ABG Total CO2 31 mmol/L (19-24) H 02/04/21 05:12 ABG O2 Saturation 97.6 % (94-97) H 02/04/21 05:12 ABG Base Excess 7.4 mmol/L 02/04/21 05:12 Axel Test Yes 02/04/21 05:12 FiO2 45 % 02/04/21 05:12 Sodium 138 mmol/L (137-145) 02/08/21 08:50 Potassium 4.2 mmol/L (3.5-5.1) 02/08/21 08:50 Chloride 101 mmol/L (98-107) 02/08/21 08:50 Carbon Dioxide 28 mmol/L (22-30) 02/08/21 08:50 Anion Gap 9 mmol/L 02/08/21 08:50 BUN 34 mg/dL (9-20) H 02/08/21 08:50 Creatinine 1.02 mg/dL (0.66-1.25) 02/08/21 08:50 Est GFR (CKD-EPI)AfAm >90 (>60 ml/min/1.73 sqM) 02/08/21 08:50 Est GFR (CKD-EPI)NonAf 83 (>60 ml/min/1.73 sqM) 02/08/21 08:50 Glucose 151 mg/dL (74-99) H 02/08/21 08:50 POC Glucose (mg/dL) 162 mg/dL (75-99) H 02/09/21 12:01 POC Glu Farm Owner Operator ID Luz Elena Raymond 02/09/21 12:01 Plasma Lactic Acid Brandan 1.7 mmol/L (0.7-2.0) 01/24/21 22:24 Calcium 9.0 mg/dL (8.4-10.2) 02/08/21 08:50 Total Bilirubin 1.2 mg/dL (0.2-1.3) 02/08/21 08:50 AST 39 U/L (17-59) 02/08/21 08:50 ALT 80 U/L (4-49) H 02/08/21 08:50 Alkaline Phosphatase 137 U/L (38-126) H 02/08/21 08:50 Lactate Dehydrogenase 1352 U/L (313-618) H 01/29/21 04:09 Troponin I <0.012 ng/mL (0.000-0.034) 01/11/21 10:05 C-Reactive Protein 5.5 mg/dL (<1.0) H 01/29/21 04:09 Total Protein 6.4 g/dL (6.3-8.2) 02/08/21 08:50 Albumin 3.4 g/dL (3.5-5.0) L 02/08/21 08:50 Globulin 2.3 g/dL 01/13/21 07:30 Albumin/Globulin Ratio 1.2 01/13/21 07:30 Triglycerides 173.00 mg/dL (0.00-149.00) H 01/21/21 05:10 Procalcitonin 10.10 ng/mL (0.02-0.09) H 01/27/21 04:15 Coronavirus (PCR) Detected (Not Detectd) A 01/11/21 08:45 Active Medications Generic Name Dose Route Start Last Admin Trade Name Freq PRN Reason Stop Dose Admin Acetaminophen 650 mg 01/16/21 09:26 02/09/21 09:24 Acetaminophen Tab 325 Mg Tab PO 650 mg Q6HR PRN Administration Fever and/ or MILD Pain Acetaminophen/Butalbital/Caffeine 1 each 02/04/21 20:52 02/04/21 21:55 Butalb/Apap/Caff 50-325-40mg Tab PO 1 each Q6HR PRN Administration Headache Ascorbic Acid 1,000 mg 01/11/21 12:30 02/09/21 09:24 Ascorbic Acid 500 Mg Tab PO 1,000 mg DAILY BRADY Administration Cholecalciferol 50 mcg 01/11/21 12:30 02/09/21 09:24 Cholecalciferol 25 Mcg (1000 Iu) Tablet PO 50 mcg DAILY BRADY Administration Dexamethasone Sodium Phosphate 6 mg 02/06/21 09:00 02/09/21 09:25 Dexamethasone Sod Phosphate 10 Mg/Ml 1 Ml Vial IVP 6 mg DAILY BRADY Administration Enoxaparin Sodium 40 mg 01/21/21 09:00 02/09/21 09:25 Enoxaparin 40 Mg/0.4 Ml Syringe SQ 40 mg DAILY BRADY Administration Hydromorphone HCl 1 mg 01/15/21 18:24 02/08/21 17:56 Hydromorphone 1 Mg/Ml 1 Ml Syringe IVP 1 mg Q2H PRN Administration Pain Insulin Aspart 0 unit 01/14/21 00:00 02/09/21 12:41 Insulin Aspart (Novolog) 100 Unit/Ml Vial SQ 2 unit Q6H BRADY Administration Protocol Insulin Detemir 10 unit 01/26/21 21:00 02/08/21 23:19 Insulin Detemir (Levemir) 100 Unit/Ml Syr SQ 10 unit HS BRADY Administration Lorazepam 1 mg 02/02/21 10:23 02/07/21 00:53 Lorazepam 2 Mg/Ml Inj IV 1 mg Q4HR PRN Administration Anxiety Miscellaneous Information 1 each 01/31/21 07:32 Potassium Replacement Protocol 1 Each Misc MISCELLANE DAILY PRN Per Protocol Protocol Naloxone HCl 0.2 mg 01/11/21 10:47 Naloxone 0.4 Mg/Ml 1 Ml Vial IV Q2M PRN Opioid Reversal Pantoprazole Sodium 40 mg 01/19/21 10:30 02/09/21 09:25 Pantoprazole 40 Mg/10 Ml Vial IVP 40 mg DAILY BRADY Administration Quetiapine Fumarate 100 mg 01/31/21 21:00 02/09/21 09:26 Quetiapine 100 Mg Tab PO 100 mg BID BRADY Administration Zinc Sulfate 220 mg 01/11/21 12:30 02/09/21 09:24 Zinc Sulfate 220 Mg Cap PO 220 mg DAILY BRADY Administration Objective - Vital Signs Vital signs: Vital Signs Temp 98.5 F 02/09/21 15:35 Pulse 75 02/09/21 15:35 Resp 16 02/09/21 15:35 BP 114/72 02/09/21 15:35 Pulse Ox 97 02/09/21 15:35 Intake & Output 02/08/21 02/09/21 02/09/21 18:59 06:59 18:59 Intake Total 356 125 365 Output Total 250 700 150 Balance 106 -575 215 Weight 90.5 kg 94.5 kg Intake: Oral 356 240 Tube Feeding 125 125 Output: Urine 250 700 150 Other: Voiding Method Urinal Urinal Urinal # Voids 1 ABP, PAP, CO, CI - Last Documented Arterial Blood Pressure 118/93 - Labs CBC & Chem 7: 02/08/21 08:50 02/08/21 08:50 Labs: Abnormal Lab Results - Last 24 Hours (Table) 02/08/21 02/08/21 02/09/21 Range/Units 17:34 23:15 06:21 POC Glucose (mg/dL) 188 H 216 H 159 H (75-99) mg/dL 02/09/21 Range/Units 12:01 POC Glucose (mg/dL) 162 H (75-99) mg/dL Microbiology - Last 24 Hours (Table) 02/08/21 08:50 Blood Culture - Preliminary Blood No Growth after 24 hours
[2021-02-09 17:58] LABS: Glucose,Whole Blood 208 mg/dL (75-99)
[2021-02-09] MEDS: INSULIN DETEMIR (LEVEMIR) 100 UNIT/ML SYR SQ SCH (20:17)
[2021-02-09] MEDS: HYDROmorphone 1 MG/ML 1 ML SYRINGE IVP PRN (20:17)
[2021-02-09 23:15] LABS: Glucose,Whole Blood 179 mg/dL (75-99)
[2021-02-10 05:43] LABS: Glucose,Whole Blood 132 mg/dL (75-99)
[2021-02-10] MEDS: INSULIN ASPART (NovoLOG) 100 UNIT/ML VIAL SQ SCH ×4 (05:56→23:57)
--- NOTE | 2021-02-10 07:55 | XR ---
EXAMINATION TYPE: XR chest 1V portable DATE OF EXAM: 02/10/2021 COMPARISON: 02/05/2021 HISTORY: Suspected Covid pneumonia TECHNIQUE: Single frontal view of the chest is obtained. FINDINGS: There are diffuse partially consolidative opacities in both lungs which is worsened in the interval the left lung. There is no pneumothorax. There is a tracheostomy tube. There is no change in position of the right s ided PICC line. The osseous structures are intact. IMPRESSION: Diffuse cardiopulmonary process with interval worsening of the left lung. The right lung is stable..
[2021-02-10] MEDS: ENOXAPARIN 40 MG/0.4 ML SYRINGE SQ SCH (09:51)
[2021-02-10] MEDS: QUEtiapine 100 MG TAB PO SCH ×2 (09:51→20:41)
[2021-02-10] MEDS: ACETAMINOPHEN TAB 325 MG TAB PO PRN ×2 (09:51→20:41)
[2021-02-10] MEDS: DEXAMETHASONE SOD PHOSPHATE 10 MG/ML 1 ML VIAL IVP SCH (09:51)
[2021-02-10] MEDS: PANTOPRAZOLE 40 MG/10 ML VIAL IVP SCH (09:52)
[2021-02-10] MEDS: ASCORBIC ACID 500 MG TAB PO SCH (09:52)
[2021-02-10] MEDS: CHOLECALCIFEROL 25 MCG (1000 IU) TABLET PO SCH (09:52)
[2021-02-10] MEDS: ZINC SULFATE 220 MG CAP PO SCH (09:52)
[2021-02-10 12:15] LABS: Glucose,Whole Blood 219 mg/dL (75-99)
--- NOTE | 2021-02-10 14:08 | P.PN ---
Subjective Progress Note Date: 02/09/21 CHIEF COMPLAINT: : Coronavirus pneumonia HISTORY OF PRESENT ILLNESS: The patient is a 55-year-old male diagnosed with coronavirus an acute hypoxia with respiratory failure and past severe calorie protein malnutrition. He has tracheostomy and gastrostomy tube. He is on TPN for nutritional support. He is having bowel movements. ROS: No fevers or chills. No new chest pain. No new neurological event PHYSICAL EXAM: VITAL SIGNS: Reviewed CONSTITUTIONAL: Well developed and in no acute distress. EYES: Conjuctivae without sclera icterus. Extraocular movements grossly intact. HEAD, EARS, NOSE, THROAT: Moist buccal mucosa. Head is atraumatic, normocephalic. No nasal drainage. Tracheostomy intact. RESPIRATORY: Nonlabored respiration. CARDIOVASCULAR: Palpable 2+ radial pulses. ABDOMEN: Gastrostomy tube intact. MUSCULOSKELETAL: No gross deformity of the lower extremities noted. No club elijah. No cyanosis. SKIN: Good skin turgor. Well perfused. NEUROLOGIC: Cranial nerves II through XII grossly intact. No focal or lateralizing signs. PSYCH: Alert. CLINICAL LABS: Reviewed. WBC elevated at 18.7. Hemoglobin 12.0. ASSESSMENT: 1. Acute hypoxic respiratory failure due to coronavirus 2. Severe protein malnutrition status post gastrostomy tube placement. 3. COVID-19 pneumonia 4. Status post tracheostomy PLAN: 1. Diet as tolerated after completion of swallow study 2. Weaning TPN once nutritional support meant by oral needs. Objective - Vital Signs Vital signs: Vital Signs Temp 97.1 F L 02/09/21 09:10 Pulse 93 02/09/21 09:10 Resp 19 02/09/21 09:10 BP 106/69 02/09/21 09:10 Pulse Ox 93 L 02/09/21 09:10 Intake & Output 02/08/21 02/09/21 02/09/21 18:59 06:59 18:59 Intake Total 356 125 125 Output Total 250 700 Balance 106 -575 125 Weight 90.5 kg 94.5 kg Intake: Oral 356 Tube Feeding 125 125 Output: Urine 250 700 Other: Voiding Method Urinal Urinal Urinal ABP, PAP, CO, CI - Last Documented Arterial Blood Pressure 118/93 - Labs CBC & Chem 7: 02/08/21 08:50 02/08/21 08:50 Labs: Abnormal Lab Results - Last 24 Hours (Table) 02/08/21 02/08/21 02/08/21 Range/Units 11:59 17:34 23:15 POC Glucose (mg/dL) 199 H 188 H 216 H (75-99) mg/dL 02/09/21 Range/Units 06:21 POC Glucose (mg/dL) 159 H (75-99) mg/dL Microbiology - Last 24 Hours (Table) 02/08/21 08:50 Blood Culture - Preliminary Blood No Growth after 24 hours Assessment and Plan (1) Acute respiratory disease due to COVID-19 virus Current Visit: Yes Status: Acute Code(s): U07.1 - COVID-19; J06.9 - ACUTE UPPER RESPIRATORY INFECTION, UNSPECIFIED SNOMED Code(s): 276414083 (2) Acute respiratory failure with hypoxia Current Visit: Yes Status: Acute Code(s): J96.01 - ACUTE RESPIRATORY FAILURE WITH HYPOXIA SNOMED Code(s): 24291592 (3) Gastrostomy in place Current Visit: Yes Status: Acute Code(s): Z93.1 - GASTROSTOMY STATUS SNOMED Code(s): 683377307 (4) Tracheostomy in place Current Visit: Yes Status: Acute Code(s): Z93.0 - TRACHEOSTOMY STATUS SNO MED Code(s): 823576560
--- NOTE | 2021-02-10 14:36 | P.PN ---
Subjective Progress Note Date: 02/10/21 Principal diagnosis: Coronavirus associated pneumonia. COVID-19 pneumonia 55-year-old male patient of Dr. Palm, with a past medical history of bilateral pulmonary emboli, and left leg DVT, migraine headaches, hiatal hernia, inguinal hernias, osteoarthritis with previous history of right shoulder arthroscopy, cervical fusion, nonsmoker, who came into the emergency department on 01/11/2021 for evaluation of shortness of breath, fatigue, cough, fever. His symptoms started on Thursday01/11/2021 and became progressive. Patient is not vaccinated against COVID-19. Chest x-ray today shows patchy bilateral airspace disease especially in the mid and lower lungs. COVID-19 PCR was negative, his white count is 6.1, hemoglobin is 16.8, platelet count is 128, lymphocyte count is 0.9, d-dimer is 0.82, coagulation profile was within normal limits, sodium is 131, the rest of electrolytes are within normal limits, troponin was less than 0.012, LFTs were within normal limits, lactic acid was 1.1. CT angiogram of the chest showed suboptimal study without central acute pulmonary embolism, and bilateral multifocal and confluent groundglass opacities right greater than left and greater in the lower lungs consistent with history of COVID-19 infection. Pulse ox was 85%, patient was febrile on presentation with a temp of 101.1F, he was placed on 3 L of supplemental oxygen, he is awake and alert, does not appear to be in any acute distress, he is ambulating, and does have exertional dyspnea but no acute distress. He was started on Decadron 10 mg IV push 1, prophyla ctic Lovenox, and multivitamins The patient is seen today 01/12/2021 in follow-up on the regular medical floor. He is currently sitting up in a chair at the bedside. His oxygen requirements to go up. He is currently on a 15 L nonrebreather mask with O2 saturation 91%. He was on 4 L yesterday. He is having more shortness of breath. 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 D-dimer 0.84. LDH 684. C-reactive protein 7.0. He is on day #2 of Remdesivir. He remains on Decadron, Lovenox, vitamin supplements. 0.9 normal saline at 130 ML's per hour. The patient is seen today 01/13/2021 in follow-up on the regular medical floor. He is currently sitting up in a chair at the bedside. Awake and alert. He did have some issues with worsening shortness of breath on minimal exertion. He is on the AirVo high flow oxygen at 4 L and 90% FiO2 plus a nonrebreather mask to maintain O2 saturations in the high 80s and low 90s. He's been afebrile. Hemodynamically stable. White count 8.8. Hemoglobin 13.9. Lymphocytes 0.9. Sodium 137. Potassium 4.1. Creatinine 0.4. He is continued on Baricitinib, Decadron, Lovenox, vitamin supplements. Progress note dated 01/14/2021. This morning, the patient was on BiPAP, with settings of 14/6 and 100%. He change IPAP of 14-16. The patient's getting saline at 130 mL an hour, and Precedex at 0.4 mcg/kg/h. I did speak to the patient about the possibility of intubation and mechanical ventilation. The patient was also placed on IV heparin, given his prior history of DVT and pulmonary embolism. White count 7.4, hemoglobin 14.4, hematocrit 43.8, platelet count 165,000. D-dimer was 12.04. Sodium 135, potassium 4.7, chlorides 107, CO2 23, anion gap 5, BUN 24, and creatinine 0.82. LDH was 2929. C-reactive protein was 5.2. The patient's chest x-ray shows diffuse bilateral infiltrates. This patient was admitted to the hospital on January 11, and moved to the intensive care unit on January 13 for worsening hypoxemic respiratory failure. Progress note dated 01/15/2021. Yesterday, the patient was intubated and mechanically ventilated, after developing worsening hypoxemic respiratory failure. A central line was placed, as well as an art line. The patient remains on mechanical ventilator. Currently, he's on the volume assist control mode, rate 26, tidal volume 450, FiO2 100%, and PEEP of 15. Arterial blood gases show a PaO2 of 129, pCO2 58, and a pH is 7.24. With that, the rate is increased to 30 breaths per minute, and the FiO2 was reduced down to 80%. The patient remains on propofol, at 50 mcg/kg/m, Nimbex, at 2 mcg/kg/m, and norepinephrine at 0.03 mcg/kg/m. The patient's also getting saline at 130 mL an hour, IV heparin, and vital, at 23 mL an hour, which is goal. White count 9.5, hemoglobin 13.4, hematocrit 42.3, and platelet count 205,000. PTT is 119. Sodium 140, potassium 4.9, chlorides 111, CO2 25, anion gap 4, BUN 20, creatinine 0.88. The patient's albumin was 2.7. AST was 126 with an ALT of 183. The patient's chest x-ray is consistent with d iffuse bilateral infiltrates, consistent with coronavirus associated pneumonia, and acute respiratory distress syndrome. Progress note dated 01/16/2021. 55-year-old male, with coronavirus associated pneumonia. The patient was intubated and mechanically ventilated on January 14 for worsening hypoxemic respiratory failure. He remains on the ventilator. The patient is on the volume assist control mode, rate 30, tidal volume 450, FiO2 80%, PEEP of 15. Arterial blood gases show pO2 of 53, pCO2 43, and a pH is 7.39. Those blood gases were done on 50%, and subsequent currently, he was increased up to 80%. I've reduced him back down to 60%. In addition, the patient's getting saline at 130 mL an hour, which will be reduced down to KVO, heparin, via weightbase protocol, propofol, at 70 mcg/kg/m, Nimbex at 1.25 mcg/kg/m vital 1.2 at 23 mL an hour, which is goal, and norepinephrine, which is been weaned off recently. White count 9.5, hemoglobin 12.4, hematocrit 38.5, platelet count 199,000. PTT is 40.9, d-dimer is 4.98. Electrolytes, for some reason were not drawn. Chest x-ray shows diffuse bilateral infiltrates, consistent with coronavirus associated pneumonia. Progress note dated 01/17/2021. 55-year-old male, with coronavirus pneumonia. The patient was intubated and mechanically ventilated on January 14 for worsening hypoxemic respiratory failure. The patient remains on mechanical ventilator. He is on the volume assist control mode, rate 30, tidal volume 450, FiO2 60%, and PEEP of 15. Blood gases show a PaO2 of 79, CO2 53, and pH 7.35. The patient remains on Nimbex at 2.25 mcg/kg/m, a fall at 70 mcg/kg/m, heparin via weightbase protocol, saline at 20 mL an hour, and vital AF at 14, which is goal. The patient was prolonged for 16 hours yesterday. The patient does have a cuff leak on its endotracheal tube. We'll have anesthesia take a look at it. The 2 may need to be replaced. White count 9.2, he will been 12.6, hematocrit 37.3, and platelet count 340,000. PTT is 48.4. Sodium 135, potassium 4.1, chlorides 104, CO2 27, anion gap 4, BUN 20, with a creatinine 0.73. Albumin is 2.5. Chest x-ray shows diffuse bilateral infiltrates consistent with coronavirus pneumonia. Progress note dated 01/18/2021. 55-year-old male, with coronavirus pneumonia. The patient was placed on the mechanical ventilator on January 14, for worsening hypoxemic respiratory failure. He remains on the ventilator. The patient is on the volume assist control mode, rate 30, tidal volume 450, FiO2 55%, and PEEP 15. Blood gases show pO2 of 88, pCO2 of 44, and a pH is 7.48. These blood gases were done actually on 60%. The patient remains on heparin via weightbase protocol, propofol at 70 mcg/kg/m, Nimbex at 2.25 mcg/kg/m, vital AF at 14 mL an hour which is goal. The patient was proned again for 16 hours. White count 7.7, hemoglobin 12.2, hematocrit 36.6, and platelet count 2 49,000. Sodium 138, potassium 4, chlorides 103, CO2 31, anion gap 4, BUN 20, and creatinine 0.73. Chest x-ray shows diffuse bilateral infiltrates, consistent with acute respiratory distress syndrome. Progress note dated 01/20/2021. 55-year-old male, admitted with a diagnosis of coronavirus associated pneumonia. The patient is again seen in room 254. He remains on the mechanical ventilator. He is on the volume assist control mode, rate 30, tidal volume 450, FiO2 50%, PEEP of 5. Arterial blood gases show a PaO2 of 77, PaCO2 42, and a pH is 7.47. The patient remains on Nimbex at 3 mcg/kg/m, propofol at 50 mcg/kg/m, heparin via weightbase protocol, and vital AF at 14 mL an hour, which is goal. Current labs include a white count of 8, hemoglobin 11.7, hematocrit 34.9, and a platelet count of 292,000. PTT is 44.2. Sodium 137, potassium 4, chlorides 103, CO2 28, anion gap 6, BUN 24, and creatinine 0.73. AST is 118 with an ALT of 243. LDH is 1228. C-reactive protein is 8.7. Chest x-ray continues to show bilateral airspace disease, which is essentially unchanged. Reevaluated today on 01/31/2021, patient remains in the ICU, intubated and mechanically ventilated. He is on assist control rate of 22, volume control +450 FiO2 50% PEEP is at 10. ABG showed a pO2 of 58 pCO2 of 38 pH of 7.46. Patient is still requiring propofol, he could not tolerate switching propofol to Precedex as he became extremely agitated and restless tachypneic and tachycardic, hence he was placed back on propofol at 60 mcg/kg/m. Chest x-ray continues to show bilateral infiltrates. Improved compared to his initial baseline chest x-ray. CBC is relatively unremarkable electrolytes are unremarkable. Renal profile is normal. Patient remains on enteral feeding via PEG tube. Remains on the COVID-19 cocktail, remains on Decadron. Remains on Lovenox 40 mg subcu daily. He is on Dilaudid when necessary. Remains on Protonix, Seroquel was added a few days ago, and I will likely increase the dose. Patient is still on Zyvox and he is on voriconazole. Patient is off cefepime. Reevaluated today on 02/01/2021, patient remains in the ICU, intubated and mechanically ventilated, continues to have tracheostomy in place, and seems to be intact. Patient is awake, maintain on propofol at 40 mcg/kg/m, however I have instructed the nursing staff today to cut down the propofol and hopefully discontinued if possible as long as the patient remains calm and not agitated. We have tried in the past titrating propofol and with dried Precedex on this patient, and nothing seems to help, however I went ahead and increased his dose of Seroquel. Hoping we could get the patient off propofol. Patient is on volume control +450 rate of 22 of 10 FiO2 50%. ABG is marginal with a pO2 of 63 pCO2 of 40 pH of 7.43. WBC count 9.2 hemoglobin 10.4 electrodes are normal renal profile is normal. Chest x-ray continues to show bilateral infiltrates, not much of a change noted. Medications lund, patient remains on Decadron 6 mg IV push twice a day, he is on Lovenox 40 mg subcu daily, lactulose, Zyvox, voriconazole, Seroquel 100 twice a day, Protonix 40 mg IV push daily, he is not requiring any pressors, and he is off cefepime. Reevaluated today on 02/02/2021, patient is basically about the same. Remains intubated and mechanically ventilated. Remains on propofol at 30 mcg/kg/m, not requiring any other sedation medication, patient had poor tolerance to Precedex. Today I recommended a trial of Ativan 1 mg IV push every 4 hours when necessary, hoping we can taper down and possibly discontinue propofol altogether. Patient is hemodynamically stable, not requiring any pressors. Remains on assist control rate of 22 volume control plus of 450 FiO2 50% remains on antibiotics and antifungal. Remains on Protonix for GI prophylaxis. And he is off cefepime. ABG today showed a pO2 of 75 pCO2 of 42 pH of 7.47. WBC count is 9.4 hemoglobin 11.6. Electrolytes and renal profile are normal. Patient remains on the COVID-19 cocktail. Lovenox 40 mg subcu daily. He remain s on Zyvox. Remains on ascorbic acid. And on zinc. Patient is also on vitamin D Reevaluated today on 02/03/2021, patient remains in the ICU, intubated and mechanically ventilated. Finally the patient is off propofol, he is on Ativan when necessary, he is also on Seroquel, and overall I believe the patient is making a significant improvement in his intermittent episodes of agitations, and his requirement for sedation. Today I reviewed his ventilator settings and he is on assist control rate of 22 tidal volume 450 FiO2 50% PEEP of 6. His chest x-ray continues to show some bibasilar infiltrates bilaterally. Minimal improvement compared to his baseline. ABG showed a pO2 of 67 pCO2 43 pH of 7.47 hence I recommended that that the patient goes on a trial of weaning with a pressure support of 10 and CPAP. WBC count is 9.2 hemoglobin is 10.9. Medication list was reviewed, patient is on vitamin C, Peridex, vitamin D, Decadron 6 mg IV push twice a day, Lovenox 40 mg subcu daily, Dilaudid when necessary, Ativan when necessary, Zyvox 600 mg IV to 12 hours, Protonix 40 mg IV push daily Seroquel 100 mg by mouth twice a day voriconazole, and zinc. Progress note dated 02/04/2021. 55-year-old male, seen in room 251. The patient was admitted on January 11. He came in with woodruff virus associated pneumonia. He came to the intensive care unit on January 13, and was intubated on the . The patient underwent tracheostomy and PEG tube placement on January 23. Currently, he sitting at the bedside. He is on pressure support of 10 and CPAP of 5 and 45%. He's been on that for 24 hours. He looks very comfortable. I told respiratory therapist that we could try to transition him to a trach collar. The patient is receiving saline at KVO. He is getting vital AF at 50 mL an hour, which is goal. The patient is on multiple antibiotics including voriconazole and Zyvox, neither of which needs to be continued. Blood gases showed a pO2 of 87, pCO2 of 37, and a pH is 7.52. White count 9.9, hemoglobin 11.1, hematocrit 33.7, platelet count 230,000. Sodium 135, potassium 4.3, chlorides 101, CO2 29, anion gap 5, BUN 40, creatinine 0.96. Chest x-ray shows diffuse bilateral infiltrates consistent with coronavirus pneumonia and/or ARDS. Progress note dated 02/05/2021. 55-year-old male, again seen in room 251. The patient was admitted on January 11. He was admitted with a diagnosis of coronavirus associated pneumonia. He came to the intensive care unit on January 13, and was intubated for respiratory failure on the . The patient underwent tracheostomy and PEG tube placement on January 23. Since yesterday, at 10 AM, he's been on 40% trach collar. He seems to be doing relatively well. He is not receiving any IV fluids. He is getting vital AF at 50 mL an hour, which is goal. If E stable tomorrow, he can move out of the intensive care unit. Currently, white count is 11.2, hemoglobin 11.7, hematocrit 37, and platelet count 318,000. Sodium 136, p otassium 5, chlorides 99, CO2 32, anion gap 5, BUN 38, creatinine 1. Chest x- rays consistent with diffuse bilateral infiltrates, and is essentially unchanged. Progress note dated 02/06/2021. 55-year-old male, again seen in room 251. The patient was admitted to the hospital on January 11. The patient was admitted with a diagnosis of coronavirus associated pneumonia. He came to the intensive care unit on January 13, and was intubated for respiratory failure on the . The patient underwent tracheostomy and PEG tube placement on January 23. For the last 48 hours, the patient has been either on trach collar or T-piece. The patient is not receiving any IV fluids. The patient is a candidate to go to the general medical floor without telemetry. No new labs or x-rays today. Progress note dated 02/08/2021. The T5-year-old male, seen in room 355. The patient was admitted back on January 11. He was admitted with a diagnosis of coronavirus associated pneumonia. He came to the intensive care unit on January 13, and was intubated for respiratory failure following day, on January 14. The patient underwent tracheostomy and PEG tube currently, he is resting comfortably. He is on trach collar at 80%. He is getting tube feeds at 50 mL an hour. No additional fluids are running. He looks very comfortable. White count 18.7, hemoglobin 12, hematocrit 37.7, and platelet count 244,000. Sodium potassium normal, chloride normal, CO2 28, anion gap 9, BUN and creatinine were 34 and 1.02. Progress note dated 02/09/2021. 55-year-old male seen in room 355. The patient was admitted way back on January 11. He was admitted with a diagnosis of coronavirus associated pneumo manuel and hypoxemic respiratory failure. The patient came to the intensive care unit on January 13, and was intubated for respiratory failure on 01/14/2021. For failure to wean, the patient received a tracheostomy and PEG tube subsequently. He remains on trach collar at 80%. He's not receiving any IV fluids. He is getting tube feedings, through his PEG tube. No new lab data today to report. No recent chest x-rays to report either. Progress note dated 02/10/2021. 55-year-old male in the hospital now for 30 days. He is seen in room 355. Currently, he remains on trach I'll alert 80%. He is receiving his tube feeds. No IV fluids. Today, I reduced his Decadron down to 4 mg a day. He's been on Decadron for quite some time. Clinically he is doing about the same. The patient was initially admitted to the intensive care unit on 01/13/2021, and intubated for respiratory failure on 01/14/2021. Subsequent to that, the patient underwent tracheostomy and PEG tube placement on 01/23/2021. There are no new labs on this patient today. Clinically he is doing reasonably well. A chest x-ray done today continues to show diffuse bilateral infiltrates, more left-sided than right-sided, but reasonably stable. Objective - Vital Signs Vital signs: Vital Signs Temp 98.1 F 02/10/21 12:00 Pulse 80 02/10/21 12:00 Resp 20 02/10/21 12:00 BP 101/58 02/10/21 12:00 Pulse Ox 94 L 02/10/21 12:00 Intake & Output 02/09/21 02/10/21 02/10/21 18:59 06:59 18:59 Intake Total 465 Output Total 150 400 450 Balance 315 -400 -450 Intake: Oral 340 Tube Feeding 125 Output: Urine 150 400 450 Other: Voiding Method Urinal Urinal # Voids 1 ABP, PAP, CO, CI - Last Documented Arterial Blood Pressure 118/93 - Exam No acute distress, oriented 3, sitting at the bedside, on a trach collar. Saturations are 94%. HEENT examination is grossly unremarkable. Neck supple. Full range of motion. No adenopathy thyromegaly or neck vein distention. Midline tracheostomy tube noted in good position. Cardiovascular examination reveals regular rhythm rate. S1-S2 normal. No S3 or S4. No discernible murmur noted. Heart sounds are distant. Heart rate 80 bpm. Lungs reveal guarded bilateral rhonchi. Breath sounds equal bilaterally. No wheezes or crackles. Saturations are 94%. Abdomen soft bowel sounds are heard. No masses or tenderness. PEG tube noted. Extremities are intact. No cyanosis clubbing or edema. Skin is without rash or lesion. Neurologic examination is brief but nonfocal. - Labs CBC & Chem 7: 02/08/21 08:50 02/08/21 08:50 Labs: Abnormal Lab Results - Last 24 Hours (Table) 02/09/21 02/09/21 02/10/21 Range/Units 17:57 23:13 05:41 POC Glucose (mg/dL) 208 H 179 H 132 H (75-99) mg/dL 02/10/21 Range/Units 12:03 POC Glucose (mg/dL) 219 H (75-99) mg/dL Microbiology - Last 24 Hours (Table) 02/08/21 08:50 Blood Culture - Preliminary Blood No Growth after 48 hours Assessment and Plan Assessment: Acute hypoxemic respiratory failure secondary to coronavirus associated pneumonia, with intubation and mechanical ventilation, initiated on January 14, for worsening hypoxemia, and subsequent tracheostomy and PEG tube placement on January 23, 2021. Acute respiratory distress syndrome (ARDS), secondary to coronavirus associated pneumonia. Previous history of bilateral pulmonary emboli, and left leg DVT, 2016. Critical illness polyneuropathy. History of osteoarthritis. No prior history of tobacco use. Acute kidney injury, resolved. Plan: Plan dated 01/14/2021. Currently, the patient's on appropriate medication. I did tell the patient, that he may require intubation and mechanical ventilation. Currently, he looks so good despite being on BiPAP, the patient will try to ride it out a bit longer. Should he fatigue, or should his saturations drop, we will do an elective intubation and mechanical ventilation. Will likely need an art line and a central line. Labs are reviewed. Prognosis is guarded. We will continue to follow make recommendations where appropriate. Plan dated 01/15/2021. Yesterday, the patient developed worsening hypoxemic respiratory failure, and was intubated. The patient remains on vitamin C, vitamin D3, and zinc. In addition, the patient is being sedated with, and paralyzed with Nimbex. The patient is getting Dilaudid when necessary. The patient remains on IV heparin, and Decadron. The patient is also getting BASHIR. Obviously, the patient is very critically ill, and we will continue to follow the patient and make recommendations were appropriate. Prognosis is guarded. Plan dated 01/16/2021. The patient remains on the mechanical ventilator. We have been able to wean off the norepinephrine. Remains on propofol, and Nimbex. He is getting tube feeds at goal. The patient gets Lasix 40 mg IV push. We will attempt to prone the patient for 16 hours. The FiO2 was changed to 60%. We will continue to follow make recommendations where appropriate. Prognosis is guarded. In addition to vitamins, and Decadron, he remains on BASHIR. Plan dated 01/17/2021. The patient is not quite ready to come off the ventilator. He still requiring 6% FiO2, and PEEP of 15. The patient has shown some improvement since he was intubated a couple days ago. He remains on IV heparin, propofol, and paralysis with Nimbex. The patient was proned for 16 hours yesterday. His endotracheal tube may need to be changed. He remains on vital AF. We will continue to follow and make recommendations were appropriate. Prognosis is certainly guarded. He remains on vitamin C, vitamin D3, zinc, Decadron, and BASHIR. Plan dated 01/18/2021. The patient remains on the mechanical ventilator. He remains on heparin, propofol, Nimbex, and tube feeds. The patient's oxygenation has improved a bit, and once he hits an FiO2 of 50% or less, we will be able to start weaning down the PEEP. Patient remains on vitamin C, vitamin D3, zinc, Decadron, and BASHIR. We will continue to follow make recommendations where appropriate. The patient remains on BASHIR. Plan dated 01/20/2021. The patient was seen by my nurse practitioner along with me yesterday. The patient remains on the mechanical breathing machine. He remains on heparin, propofol, Nimbex, and tube feeds. In addition, the patient is on vitamin C, vit bee D3, zinc, Decadron, and BASHIR. In my opinion, although last couple of days, the patient's chest x-ray has shown some improvement, and his oxygenation has improved. He is currently on 50% with PEEP of 15. We will continue to follow make recommendations were appropriate. Prognosis is guarded. Medications, x- rays, and labs are all reviewed. Plan dated 02/04/2021. The patient had a tracheostomy and PEG tube placement placed on January 23. Currently he is resting comfortably at bedside, on pressure support of 10 and CPAP of 5. He is receiving 45% FiO2. We are going to try to get him onto trach collar today. We'll DC the voriconazole and Zyvox. The patient continues on saline at KVO and tube feeds at goal of 50 mL an hour. Blood gases show pO2 of 87, pCO2 37, and a pH is 7.52. We will continue to follow and make recommendations where appropriate. Prognosis is still guarded. Plan dated 02/05/2021. The patient has been on trach collar since 10:00 yesterday. He is doing very well. The patient is not receiving any IV fluids. The patient remains on vitamin C, vitamin D3, and zinc. In addition, the patient is on Lovenox and Decadron. Additional recommendations and suggestions are forthcoming. Prognosis is guarded. I will cut back on the Decadron to once a day. Plan dated 02/06/2021. The patient remains in the intensive care unit, room 251. The last 48 hours or so, the patient has been on trach collar, or on a Mooney trial. The patient is not receiving any IV fluids. No new labs to report. No new x-rays to report. The patient's medications include vitamin C, vitamin D3, zinc, Decadron, and Lovenox. Additional recommendations and suggestions are forthcoming. Prognosis is guarded. We will continue to follow this patient and make recommendations wh ere appropriate. Hopefully, the patient could be considered for transfer out to the general medical floor. Plan dated 02/08/2021. The patient is seen in room 355. Previously, he was in the intensive care unit. He's currently on a trach collar 80%. He's not receiving any IV fluids. He is receiving tube feeds. The patient is on vitamin C, vitamin D3, and zinc. The patient also remains on Decadron and Lovenox. Additional recommendations and suggestions are forthcoming. The patient has been weaned off of all antibiotics. We'll continue to follow make recommendations where appropriate. Prognosis is guarded. Plan dated 02/09/2021. The patient appears to be doing well. He is on trach collar 80%. He's not receiving any IV fluids. The patient is on vitamin C, vitamin D3, and zinc. He remains also on Decadron and Lovenox. Additional recommendations and suggestions are forthcoming. We will continue to follow make recommendations where appropriate. Prognosis is guarded. We will order a chest x-ray for tomorrow. Plan dated 02/10/2021. The patient remains on trach collar. His chest x-rays reviewed. No new labs today. His medications are appropriate including vitamin C, vitamin D3, and zinc. He is also getting Lovenox 40 mg subcu daily, and Decadron, which I reduced from 6 mg a day down to 4 mg a day. The patient has been on Decadron for quite a long time, and he can probably be weaned off. We will continue to follow make recommendations where appropriate. Prognosis is guarded. I did speak to the patient's daughter today and gave her an update. Time with Patient: Less than 30
--- NOTE | 2021-02-10 15:19 | P.PN ---
Subjective Progress Note Date: 02/10/21 HISTORY OF PRESENT ILLNESS This is a 55-year-old male patient of Dr. 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 Patient states he has not been feeling well since Thursday. He said shortness of breath cough is nonproductive along with fever and chills, exertional dyspnea. He denies having any nausea vomiting or diarrhea. He denies any close contacts to known Covid people. He states his temperature is been up to 102.7 at home. He is not vaccinated. Patient presented to [facility] emergency center and found to be febrile at 101.1, heart rate 90, blood pressure 122/80, pulse ox 85% on room air. CBC revealed platelet count of 128. D-dimer 0.82. Sodium 131 otherwise electrolytes and renal function were normal. Blood sugar 147. Troponin negative. Coronavirus PCR positive. Chest x-ray reveals patchy bilateral airspace disease especially in the mid and lower lungs. Correlate for multifocal pneumonia including Covid 19 pneumonia. CTA of the chest was suboptimal study without central acute pulmonary embolism. Bilateral multifocal and confluent groundglass opacities right greater than left and greater in the lower lungs consistent with known Covid 19 infection. Patient is seen today in the emergency center waiting for bed on the [facility] floor, started on Remdesivir, Lovenox, dexamethasone and vitamin supplements, consult with pulmonary medicine. 01/12: Patient is comfortable, however he requires 40 L of oxygen via airvo sats 88-89%, he feels better today compared to his nonrebreather mask yesterday, patient did not sleep well, patient does not have any cough, however he does have shortness of breath. Patient denies any aspiration, appetite is still marginal, patient has insomnia vitals, blood sugar currently is 243, creatinine of 0.98, d-dimer is 0.84, CRP is elevated, LDH is elevated, venous Doppler, shows chronic DVT, left popliteal, in the posterior tibial veins, without any obstruction of flow. No acute DVT identified CTA, shows suboptimal, without central acute pulmonary emboli, has bilateral multifocal and confluent groundglass opacities, right greater than left, lower lobe, consistent with COVID-19 infection and remdesivir discontinued by pulmonary today and is outside of the window for remdesivir 01/13: Patient is on aerosol 14 L, with nonrebreather mask, 15 L, hypoxemia n oted on 88%, worse with coughing, however his nonrebreather mask is very loose. Nurse is worriedwith the turn of events, and requested an ICU transfer, Dr. Canales has seen the patient, and is stable for floor management at this time, patient is not significant tachypnea, and is not tiring out. There is no hemoptysis, and mucus is productive, patient's doing incentive spirometry, up 2 L. 01/14: Patient remains in the intensive care unit, he was intubated this morning as he was desaturating with BiPAP. He has been afebrile, heart rate 73, blood pressure 93/47, pulse ox 90%. CBC is unremarkable. D-dimer 12.04. Sodium 135, creatinine 0.82. LDH 2929, C-reactive protein 5.2. Sputum culture is in progress. He has had good urine output. Chest x-ray reveals no evident convocation from catheters. Bilateral airspace disease. 01/15: Patient remains in the intensive care intubated and on mechanical ventilation with tidal volume 450, FiO2 80, PEEP of 15. Patient has been started on norepinephrine and remains on propofol, heparin drip, Nimbex. Repeat blood work revealed unremarkable CBC. Creatinine 0.88. Capillary blood glucose running between 195 and 215. AST 126, ALT 183, alkaline phosphatase 109. Sputum culture is in progress. Repeat chest x-ray reveals correlate for pneumonia versus edema, ARDS. Patient is continued on vitamin supplements, heparin drip, dexamethasone and Baricitinib. patient remains in intensive care intubated on mechanical ventilator at FiO2 60 percent PEEP respiratory rate of 30 tidal volume 450. Continues to maintain saturations between 94-95% on the current settings. Vitals otherwise stable labs reviewed today WBC is 9.5 hemoglobin 12.4 d-dimer is elevated at 4.98. ABG obtained today suggest pH of 7.4 pO2 53 bicarb 26 on 50% FiO2. Creatinine stable at 0.78 glucose is maintained between 145-190. LDH 1564 CRP is elevated at 4. Patient's inflammatory markers trending down. Patient's vent settings increased to 80% for inadequate oxygenation. Chest x-ray reviewed showed bilateral infiltrate consistent with coronavirus associated pneumonia. Patient continues intubated on propofol 70 bike but patient examined Nimbex 1.25 g daily per minute. Patient to receive 1 dose of Lasix today. Continue to remain on baricitinib day 2 PAtient remains intubaated since . patient continues too remain on assist control, TV 450 , peep 15 and fio2 of 60 %. patient was proned for 16 hours yesterday. CXR was reviewed, COVID pneumonia but no significant change was noted, Will repeat inflammatory markers tomorrow. Vent managment per zipper repairer. Patient contines to remain propofol , nimbex. Continue on lovenox, baricitinib, dexamethasone and vit supplement 01/18 patient continues to remain intubated. Covid pneumonia. Is currently on assist control respiratory rate of 30 tidal volume 450 FiO2 of 55% and PEEP of 15. She is currently on heparin drip, propofol and Nimbex. Patient continues to tolerate prone positioning 16 hours overnight. Continues to receive dexamethasone, vitamin supplement, anticoagulation with heparin, baricitinib. Labs are reviewed patient has a hemoglobin stable at 12.2. This morning pH 7.48 PCO2 44 bicarb 32 creatinine 0.73 AST 100 chest x-ray done this morning suggestive of ARDS and pneumonia 01/19 patient continues to remain intubated currently on assist-control vent with a rate of 30 tidal volume 450 FiO2 50 and PEEP of 15. Continues to remain on propofol and Nimbex. Continue heparin drip for anticoagulation. Remains on Baricitinib , vitamin supplementation and dexamethasone. Labs reviewed hemoglobin stable at 12 PTT 53 blood gas obtained today suggest a pH of 7.45 pCO2 46 pO2 69 bicarb 32 BUN 23 creatinine 0.0.8 glucose 122 AST ED ALT 226. inflammation markers ordered for tomorrow last set was obtained on 01/12 01/20 Intubated. Vitals reviewed patient's afebrile pulse of 68 respiratory rate 30 blood pressure. 94/56 oxygen 91% on 50% FiO2. Patient remains on assist control, tidal volume 450 respiratory rate 30 FiO2 of 50% and PEEP of 15. He is currently on Pneumovax at 3 mics per KG per minute propofol at 50 Micro-K to Coumadin and heparin drip. Patient labs are reviewed hemoglobin is 11.7. Arterial blood gas at 50% FiO2 has a pH of 7.47 pO2 of 77 bicarb of 31 BUN 24 creatinine 0.7 LDH [id number] CRP 8.70. CRP is slightly elevated with improvement in LDH. Continue to monitor patient with the goal with treatment on heparin, as dexamethasone, vitamin supplementation and Baricitinib . Blood sugar are well controlled. 01/21: Patient remains intubated and on mechanical ventilation with tidal volume 400, FiO2 40 and PEEP of 16. Patient is on propofol and fentanyl drips. He is on tube feedings to be increased to 26 ML's per hour and tolerating. She he has had 100 250 ML's of urine output per hour. He has been afebrile, heart rate 70, respiratory rate 30, blood pressure 115/64, pulse ox 93%. Repeat blood work reveals WBC 7.4, hemoglobin 12, platelet count 310. D-dimer 1.23. Sodium 134, BUN 24 and creatinine 0.73. Blood sugars are running between 101 and 164. AST 105, ALT 261, alkaline phosphatase 135. LDH 999. C-reactive protein 13.5. Albumin 2.9. Gallbladder ultrasound reveals nonspecific pattern of liver can be seen with hepatic steatitis or hepatocellular disease including hepatitis. The chest x-ray reveals bilateral patchy airspace disease stable. 01/22: Remains in the intensive care unit intubated and on mechanical ventilation with tidal volume 400, FiO2 40, PEEP of 13. Paralytics for pause this morning and patient had significant drop in his pulse ox. He is currently on propofol, fentanyl and Nimbex. He has been afebrile, heart rate 73, blood pressure 99/63, pulse ox 90%. Repeat blood work reveals hemoglobin 11.6. Creatinine 0.81. Blood sugars are running between 98 and 155. AST 85, ALT 260, alkaline phosphatase 132. LDH 954, C-reactive protein 6.8. Repeat chest x-ray reveals bilateral patchy diffuse airspace disease stable. Patient is continued on Baricitinib, Lovenox 40 mg subcu daily, dexamethasone 6 mg IV push and vitamin supplements 01/23: Remains in the intensive care unit on mechanical ventilation with tidal volume 400, FiO2 40 and PEEP of 10. Patient is scheduled for trach and PEG tube placement today. He is currently on propofol, fentanyl and Nimbex. Patient remains afebrile, heart rate 69, respiratory rate 30, blood pressure 120/76, pulse ox 93%. Repeat blood work reveals creatinine is 0.71. WBC 8.3, hemoglobin 12.9. AST 111, ALT 328, alkaline phosphatase 153. Blood sugars have been running between 92 and 193. Sputum culture is showing Corynebacterium species from 01/21 and Aspergillus from 01/14. Repeat chest x-ray reveals bilateral patchy diffuse airspace disease stable. Patient is continued on Baricitinib, Lovenox 40 mg subcu daily, dexamethasone 6 mg IV push and vitamin supplements 01/24: Patient is status post trach and PEG tube done yesterday by Dr. Olivares. Patient is off Nimbex and he has his eyes open but not following commands. Patient's is planning to come in today to see him. He remains on ventilator with tidal volume 300, FiO2 50 and PEEP of 10. Repeat chest x-ray reveals diffuse bilateral infiltrate stable. Antibiotics have been changed to ce fepime and patient started on IV Voriconazole. Patient is continued on dexamethasone, Lovenox and vitamin supplements. WBC 17.2, hemoglobin 12.3. Sodium 130, BUN 21 creatinine 0.83. Total bilirubin 2, AST 54, ALT 248, alkaline phosphatase 132. Capillary blood glucose running between 80 and 193. 01/25: Patient remains in the intensive care unit on mechanical ventilation with tidal volume 400, FiO2 is been increased to 100 and PEEP of 12. Patient is currently on propofol, and was started on vasopressors yesterday and is status post 2 L of IV fluid. Temperature max 101.3. Pulse 87, respiratory rate 33, blood pressure 120/57, pulse ox 95%. gandy dancer is a sinus rhythm. Repeat blood work reveals WBC 8.3, hemoglobin 11. Sodium 136, chloride 108. Creatinine is 0.83. Calcium 7.9. Total bilirubin 2.7, AST 64, ALT 171, alkaline phosphatase 127. LDH 1187. C-reactive protein 32.6. Blood sugars are running between 133 and 173. Urine culture is showing gram-negative bacilli. Blood culture from 01/24 showing no growth at 24 hours. Repeat chest x-ray reveals clear to megaly with bilateral confluent mid to lower lung opacities consistent with: 19 infection redemonstrated. No significant change. Patient is currently on cefepime, Zyvox and there, so for worsening bilateral pulmonary infiltrate, pneumonia. 01/26: Patient remains in intensive care unit on mechanical ventilation with tidal volume 450, FiO2 80 and PEEP of 12. He has been afebrile for greater than 24 hours. Heart rate 80, blood pressure 132/70, pulse ox 86%. He does have leaking around the tracheostomy site. Repeat blood work reveals WBC 8, hemoglobin 11.1, platelet count 291. Sodium 135, potassium 5.8, creatinine 1.15. Total bilirubin 1.8, AST 101, ALT 194, alkaline phosphatase 135. LDH 1156. C-reactive protein 35.7. Blood sugars are running between 154 and 183. Patient will be started on Levemir 10 units at bedtime. He is continued on cef epime, Zyvox and voriconazole. 01/27: Patient remains intubated and on mechanical ventilation with tidal volume 400 50, FiO2 60, PEEP of 12. Plan is to try and wean oxygen down today. Tracheostomy tube has been manipulated and repositioned. He is not requiring vasopressors, currently on propofol. Chest x-ray reveals no significant interval change. Patient has had good urine output with BUN of 37 creatinine 1.28. Other lab work reveals WBC 9.8, hemoglobin 10.7. D-dimer 5.45. Total bilirubin 1.4, AST 153, ALT 282, alkaline phosphatase 138, LDH 1073. C-reactive protein 16.3. ProCalcitonin 10.1. 01/28: Remains in the intensive care unit, intubated and on mechanical ventilation with tidal volume 450, FiO2 of 60 and PEEP of 10. Patient is responsive, follows a few simple commands. He is currently on antibiotics in the form of cefepime, Zyvox and voriconazole. Patient is also continued on Decadron and Lovenox. Repeat blood work reveals WBC of 10, hemoglobin 10.5. D- dimer 5.63. C-reactive protein 6.2. LDH 1025. Total bilirubin 1.3, AST 95, ALT 250. Patient is on tube feedings at goal. He has had good urine output. Social work will start process for discharge to select specialty with anticipation of him being ready by the end of the week. 01/29 patient is currently in the ICU on with tracheostomy with tidal volume 450 FiO2 decreased to 55 this morning with PEEP of 10. Patient is responsive get agitated once propofol is discontinued. Patient is getting of diarrheal ordered every few hours to help with pain control. Currently stays on antibiotic in the form of cefepime, Zyvox and voriconazole. Urine output is appropriate in her on 75 200 mL per hour. Continues to remain on Decadron and Lovenox. He's currently off norepinephrine off Precedex is off fentanyl. Chest x-ray reviewed has bilateral interstitial infiltrate not changed. Labs reviewed, WBC 11.1 h emoglobin is 11.4 R blood gas this morning on 60% FiO2 suggest EF pO2 of 65 bicarb 26 blood sugar controlled ranging from 156-197. Ventilator management per pulmonary as reduce the FiO2 to 55 . Repeat blood gas in 24 hours. Patient initiating Seroquel 50 twice a day for agitation. Discussion with the nurse was made to reduce the Seroquel to 25 twice a day if patient appears to be sedated 01/30: Patient remains in intensive care unit, intubated status post tracheostomy and PEG tube placement. He is on tidal volume 450, FiO2 of 50 and PEEP is down to 10. He is able to follow some simple commands. Pulmonary medicine is planning to discontinue propofol and switched to Precedex. He is on tube feedings. Social work is following for possible discharge to [facility] by the end of the week. 01/31: Patient remains in the intensive care unit intubated and on mechanical ventilation status post PEG tube and trach. Tidal volume 450, FiO2 50 and PEEP of 10. Patient is on propofol. He is on PEG tube feedings at goal. Patient is continued on Lovenox, Decadron, supplements. Cefepime has been discontinued and he is continued on Zyvox and 4, his old. Social work is following closely for discharge planning however at this time, there are no facilities that will accept the patient. 02/01: Patient is out of Covid isolation. Patient remains on mechanical ventilation with tidal volume 450, FiO2 50, PEEP of 10. Patient is on propofol which is to be weaned off today. He still has Sim catheter with good urine output. Feedings are at goal. Patient has occasional cough, mild edema. Patient is refusing IV Dilaudid for pain. Bowel movements been soft but no diarrhea. Patient is afebrile, heart rate 68, respiratory rate 24, blood pressure 130/75, pulse ox 92%. 02/02: Patient is seen in ICU he is currently out of Covid isolation. Remains on mechanical ventilation with trach. Tidal volume 450, rate of 22 with a PEEP of 8 FiO2 of 50%. Patient is currently on propofol which will continue to be weaned today with the addition of Ativan. Sim catheter in place with good urine output. Feedings are at goal. Does have occasional cough, mild edema. 02/03: Patient is seen in ICU remains on mechanical ventilation with trach. Tidal volume 450 rate of 22 with a PEEP of 6 FiO2 of 45%. Patient is off of propofol. Discussion for transitioned to CPAP machine for today. Sim catheter in place with good urine output. Feedings are at goal. Patient does have occasional cough continues have mild edema. Patient is able to follow commands bilateral upper extremity strength equal. 02/04: Patient remains in the intensive care unit. He is currently on trach collar at 40% FiO2 with pulse ox of 97%. He is afebrile, heart rate in the 50s to 80s, blood pressure 105/69. Repeat blood work reveals WBC 9.9, hemoglobin 11.1, platelet count 230. Sodium 135, potassium 4.3, chloride 101, CO2 29, BUN 40 creatinine 0.96. Blood sugars are running between 125 and 211. Repeat chest x-ray reveals findings consistent with Covid pneumonia consider ARDS. Patient is now slowly progressing and his goal is to get home by [place]. 02/05: Patient remains in the intensive care unit. He is on trach collar at 40% FiO2 with pulse ox of 87 and 95%. Blood pressure 103/66, heart rate in the 50s and 60s, afebrile. Patient is able to mouth words and cough is better today. He is needing to be suctioned for secretions. He is nothing by mouth and on peg tube feedings at goal. Repeat blood work reveals hemoglobin 11.7, WBC 11.2. Sodium 136, potassium 5, chloride 99, CO2 32, BUN 38 and creatinine 1. Blood sugars are running between 125-197. Repeat chest x-ray consistent with history of pneumonia. Patient may move out of the ICU tomorrow. 02/06: A remains in the intensive care unit. His daughter is at the bedside. He has been downgraded to [facility] with telemetry and waiting for bed. He underwent barium swallow today and found no aspiration or penetration. Speech therapy has recommended regular diet with thin liquids. His secretions are much less and he is coughing less. He has been afebrile, heart rate in the 70s, b lood pressure 103/59, pulse ox 9094% on 40% trach collar. Blood sugars are running between 123 and 165. 02/07: Patient is today on the cardiac stepdown unit. He is on trach collar at 80% FiO2 with pulse ox of 91%. He has been afebrile, heart rate 107, blood pressure 101/67. Patient a 25% of lunch and supper yesterday, he is enjoying being able to eat. He remains on PEG tube feedings as well . The patient has been approved for Medicaid and social work will discuss option of ECF with family. We will add in a consult for Dr. Nuñez for inpatient rehab. 02/08: Patient has been seen by Dr. Nuñez for possible inpatient rehab with goal of discharge on Thursday. Patient developed a fever 102 this morning at 4 AM, heart rate 101, blood pressure 97/64. Pulse ox is percent on 80% trach collar. Capillary blood glucose running between 114 and 209. We have ordered stat blood culture. Patient is on PEG tube feedings and oral diet. Repeat blood work reveals WBC 18.7, hemoglobin 12, platelet count 244. Electrolytes are normal. BUN 34 creatinine 1.02. Blood sugar 151. /: Patient is doing okay, and the medical floor, still on trach at 80%, patient's 18 on his own unsupervised, has rhonchi on breathing, PEG tube infusing VITAL 1.2, at 50 mL an an hour, on top of oral supplementation and sugar, twice a day. Patient is swallowing meds, any difficulty, is at bedside, updated regarding plans for possible inpatient rehab, still needs to be determined. 02/10: Patient is seen sitting up in bed, trying to expectorate mucus, has a hard time expectorating this time, thick tenacious mucus, requesting to have deep suctioning. is at bedside, no new fever no chills, still on trach 80%, no aspiration, PEG tube infusing at 50 mL an hour as previous, anticipated rehab, on Thursday to be determined whether's inpatient [place] subacute REVIEW OF SYSTEMS. Constitutional: Noted fever, no chills, no night sweats. No weight change. Reports weakness, reports fatigue or lethargy. No daytime sleepiness. EENT: No headache. No blurred vision or double vision, no loss of vision. No loss of Hearing, no ringing in the ears, no dizziness. No nasal drainage or congestion. No epistaxis. No sore throat. Lungs: No shortness of breath, noted occasional cough, noted sputum production, proving. No wheezing. Cardiovascular: No chest pain, no lower extremity edema. No palpitations. No paroxysmal nocturnal dyspnea. No orthopnea. No lightheadedness or dizziness. No syncopal episodes. Abdominal: no abdominal discomfort. No nausea, vomiting. no diarrhea. No constipation. No bloody or tarry stools. no loss of appetite. Genitourinary: No dysuria, increased frequency, urgency. No urinary retention. Musculoskeletal: No myalgias. No muscle weakness, no gait dysfunction, no frequent falls. No back pain. No neck pain. Integumentary: No wounds, no lesions. No rash or pruritus. No unusual bruising. No change in hair or nails. Neurologic: No aphasia. No facial droop. No change in mentation. No head injury. No headache. No paralysis. No paresthesia. Psychiatric: No depression. No anxiety. No mood swings. Endocrine: No abnormal blood sugars. No weight change. No excessive sweating or thirst. PHYSICAL EXAMINATION Gen: This is a 55-year-old male. He is resting in bed, on trach collar at 80% FiO2, status post trach and PEG. HEENT: Head is atraumatic, normocephalic. Pupils equal, round. Sclerae is anicteric. Tracheostomy intact. NECK: Supple. No JVD. No lymphadenopathy. LUNGS: Crackles bilaterally. No accessory muscle usage. No intercostal retractions. HEART: Regular rate and rhythm. No murmur. ABDOMEN: Soft. Bowel sounds are present. No masses. No tenderness. PEG tube in place. EXTREMITIES: No pedal edema. No calf tenderness. NEUROLOGICAL: Patient is awake, alert and oriented 3, and able to follow commands and answer questions appropriately. ASSESSMENT AND PLAN 1. Acute hypoxic respiratory failure secondary to Covid 19 pneumonia and possible secondary pneumonia, gram-negative and fungal. Patient required intubation 01/14. Patient is status post trach and PEG tube placement 01/[address] Olivares. Patient started on January 12/2021 on baricinib 4 mg daily, discontinued on 01/24. Continue dexamethasone 6 mg IV daily, Lovenox 40 mg subcu daily, and vitamin supplements. consult with Dr. Nuñez for IP rehab. 2. Acute respiratory distress syndrome secondary to coronavirus pneumonia. 3. Acute septic shock requiring vasopressors. Patient is status post IV fluid bolus and off vasopressors. 4. History of bilateral pulmonary emboli and DVT in 2016. CTA negative for PE. Not on chronic anticoagulation. 5. Acute transaminitis secondary to Covid 19. 6. Generalized osteoarthritis. 7. Degenerative changes in the cervical spine status post fusion of C5-6. 8. 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 9. Elevated liver function tests, transaminitis. 10. Hyperglycemia secondary to steroids. Patient is on NovoLog scale, Levemir 10 units at bedtime added. 11. Severe hyperkalemia, resolved. 12. GI prophylaxis. Protonix. 13. DVT prophylaxis. Lovenox. 14. Acute agitation on ventilator.Seroquel to 100 mg twice daily by zipper repairer. 15. Moderate protein calorie malnutrition requiring PEG tube. Patient's diet advanced to regular with thin liquids by mouth, continue PEG tube feedings until oral diet is sufficient. DISCHARGE PLAN IP rehab Thursday Current Medications Acetaminophen (Acetaminophen Tab 325 Mg Tab) 650 mg PO Q6HR PRN PRN Reason: Fever and/ or MILD Pain Last Admin: 02/10/21 09:51 Dose: 650 mg Documented by: Acetaminophen/Butalbital/Caffeine (Butalb/Apap/Caff 50-325-40mg Tab) 1 each PO Q6HR PRN PRN Reason: Headache Last Admin: 02/04/21 21:55 Dose: 1 each Documented by: Ascorbic Acid (Ascorbic Acid 500 Mg Tab) 1,000 mg PO DAILY [facility] Last Admin: 02/10/21 09:52 Dose: 1,000 mg Documented by: Cholecalciferol (Cholecalciferol 25 Mcg (1000 Iu) Tablet) 50 mcg PO DAILY [facility] Last Admin: 02/10/21 09:52 Dose: 50 mcg Documented by: Dexamethasone Sodium Phosphate (Dexamethasone Sod Phosphate 10 Mg/Ml 1 Ml Vial) 4 mg IVP DAILY [facility] Enoxaparin Sodium (Enoxaparin 40 Mg/0.4 Ml Syringe) 40 mg SQ DAILY [facility] Last Admin: 02/10/21 09:51 Dose: 40 mg Documented by: Hydromorphone HCl (Hydromorphone 1 Mg/Ml 1 Ml Syringe) 1 mg IVP Q2H PRN PRN Reason: Pain Last Admin: 02/09/21 20:17 Dose: 1 mg Documented by: Insulin Aspart (Insulin Aspart (Novolog) 100 Unit/Ml Vial) 0 unit SQ Q6H [facility]; Protocol Last Admin: 02/10/21 13:00 Dose: 4 unit Documented by: Insulin Detemir (Insulin Detemir (Levemir) 100 Unit/Ml Syr) 10 unit SQ HS [facility] Last Admin: 02/09/21 20:17 Dose: 10 unit Documented by: Lorazepam (Lorazepam 2 Mg/Ml Inj) 1 mg IV Q4HR PRN PRN Reason: Anxiety Last Admin: 02/07/21 00:53 Dose: 1 mg Documented by: Miscellaneous Information (Potassium Replacement Protocol 1 Each Misc) 1 each MISCELLANE DAILY PRN; Protocol PRN Reason: Per Protocol Naloxone HCl (Naloxone 0.4 Mg/Ml 1 Ml Vial) 0.2 mg IV Q2M PRN PRN Reason: Opioid Reversal Pantoprazole Sodium (Pantoprazole 40 Mg/10 Ml Vial) 40 mg IVP DAILY [facility] Last Admin: 02/10/21 09:52 Dose: 40 mg Documented by: Quetiapine Fumarate (Quetiapine 100 Mg Tab) 100 mg PO BID [facility] Last Admin: 02/10/21 09:51 Dose: 100 mg Documented by: Zinc Sulfate (Zinc Sulfate 220 Mg Cap) 220 mg PO DAILY [facility] Last Admin: 02/10/21 09:52 Dose: 220 mg Documented by: Vital Signs Temp 98.1 F 02/10/21 12:00 Pulse 80 02/10/21 12:00 Resp 20 02/10/21 12:00 BP 101/58 02/10/21 12:00 Pulse Ox 94 L 02/10/21 12:00 Intake & Output 02/09/21 02/10/21 02/10/21 18:59 06:59 18:59 Intake Total 465 Output Total 150 400 450 Balance 315 -400 -450 Intake: Oral 340 Tube Feeding 125 Output: Urine 150 400 450 Other: Voiding Method Urinal Urinal # Voids 1 ABP, PAP, CO, CI - Last Documented Arterial Blood Pressure 118/93 Laboratory Results - Last 24 Hours 02/09/21 02/09/21 02/10/21 17:57 23:13 05:41 POC Glucose (mg/dL) 208 H 179 H 132 H POC Glu [employer] Intern ID Elba Rivers 02/10/21 12:03 POC Glucose (mg/dL) 219 H POC Glu Integrated Marketing Intern ID Ivy Mathew Objective - Vital Signs Vital signs: Vital Signs Temp 98.1 F 02/10/21 12:00 Pulse 80 02/10/21 12:00 Resp 20 02/10/21 12:00 BP 101/58 02/10/21 12:00 Pulse Ox 94 L 02/10/21 12:00 Intake & Output 02/09/21 02/10/21 02/10/21 18:59 06:59 18:59 Intake Total 465 Output Total 150 400 450 Balance 315 -400 -450 Intake: Oral 340 Tube Feeding 125 Output: Urine 150 400 450 Other: Voiding Method Urinal Urinal # Voids 1 ABP, PAP, CO, CI - Last Documented Arterial Blood Pressure 118/93 - Labs CBC & Chem 7: 02/08/21 08:50 02/08/21 08:50 Labs: Abnormal Lab Results - Last 24 Hours (Table) 02/09/21 02/09/21 02/10/21 Range/Units 17:57 23:13 05:41 POC Glucose (mg/dL) 208 H 179 H 132 H (75-99) mg/dL 02/10/21 Range/Units 12:03 POC Glucose (mg/dL) 219 H (75-99) mg/dL Microbiology - Last 24 Hours (Table) 02/08/21 08:50 Blood Culture - Preliminary Blood No Growth after 48 hours
--- NOTE | 2021-02-10 16:11 | P.PN ---
Subjective Progress Note Date: 02/10/21 CHIEF COMPLAINT: : Coronavirus pneumonia HISTORY OF PRESENT ILLNESS: The patient is a 55-year-old male diagnosed with coronavirus an acute hypoxia with respiratory failure and past severe calorie protein malnutrition. He has tracheostomy and gastrostomy tube. He is on TPN for nutritional support. He is having bowel movements. He has trach collar. ROS: No fevers or chills. No new chest pain. No new neurological event PHYSICAL EXAM: VITAL SIGNS: Reviewed CONSTITUTIONAL: Well developed and in no acute distress. EYES: Conjuctivae without sclera icterus. Extraocular movements grossly intact. HEAD, EARS, NOSE, THROAT: Moist buccal mucosa. Head is atraumatic, normocephalic. No nasal drainage. Tracheostomy intact as trach collar. RESPIRATORY: Nonlabored respiration. CARDIOVASCULAR: Palpable 2+ radial pulses. ABDOMEN: Gastrostomy tube intact. MUSCULOSKELETAL: No gross deformity of the lower extremities noted. No clubbing. No cyanosis. SKIN: Good skin turgor. Well perfused. NEUROLOGIC: Cranial nerves II through XII grossly intact. No focal or lateralizing signs. PSYCH: Alert. CLINICAL LABS: Reviewed. Blood sugars elevated over 200 ASSESSMENT: 1. Acute hypoxic respiratory failure due to coronavirus 2. Severe protein malnutrition status post gastrostomy tube placement. 3. COVID-19 pneumonia 4. Status post tracheostomy 5. Hyperglycemia PLAN: 1. Adjust TPN for hyperglycemia. 2. Supportive measures for COVID-19 pneumonia Objective - Vital Signs Vital signs: Vital Signs Temp 98.1 F 02/10/21 12:00 Pulse 80 02/10/21 12:00 Resp 20 02/10/21 12:00 BP 101/58 02/10/21 12:00 Pulse Ox 94 L 02/10/21 12:00 Intake & Output 02/09/21 02/10/21 02/10/21 18:59 06:59 18:59 Intake Total 465 Output Total 150 400 450 Balance 315 -400 -450 Intake: Oral 340 Tube Feeding 125 Output: Urine 150 400 450 Other: Voiding Method Urinal Urinal # Voids 1 ABP, PAP, CO, CI - Last Documented Arterial Blood Pressure 118/93 - Labs CBC & Chem 7: 02/08/21 08:50 02/08/21 08:50 Labs: Abnormal Lab Results - Last 24 Hours (Table) 1202/09/21 02/10/21 Range/Units 17:57 23:13 05:41 POC Glucose (mg/dL) 208 H 179 H 132 H (75-99) mg/dL 02/10/21 Range/Units 12:03 POC Glucose (mg/dL) 219 H (75-99) mg/dL Microbiology - Last 24 Hours (Table) 02/08/21 08:50 Blood Culture - Preliminary Blood No Growth after 48 hours Assessment and Plan (1) Acute respiratory disease due to COVID-19 virus Current Visit: Yes Status: Acute Code(s): U07.1 - COVID-19; J06.9 - ACUTE UPPER RESPIRATORY INFECTION, UNSPECIFIED SNOMED Code(s): 306802211 (2) Acute respiratory failure with hypoxia Current Visit: Yes Status: Acute Code(s): J96.01 - ACUTE RESPIRATORY FAILURE WITH HYPOXIA SNOMED Code(s): 50887089 (3) Gastrostomy in place Current Visit: Yes Status: Acute Code(s): Z93.1 - GASTROSTOMY STATUS SNOMED Code(s): 955864627 (4) Tracheostomy in place Current Visit: Yes Status: Acute Code(s): Z93.0 - TRACHEOSTOMY STATUS SNOMED Code(s): 342965938 (5) Hyperglycemia Current Visit: Yes Status: Acute Code(s): R73.9 - HYPERGLYCEMIA, UNSPECIFIED SNOMED Code(s): 18517845 (6) Hyperglycemia due to type 2 diabetes mellitus Current Visit: Yes Status: Acute Code(s): E11.65 - TYPE 2 DIABETES MELLITUS WITH HYPERGLYCEMIA SNOMED Code(s): 387154995366498
[2021-02-10 18:20] LABS: Glucose,Whole Blood 173 mg/dL (75-99)
[2021-02-10] MEDS: INSULIN DETEMIR (LEVEMIR) 100 UNIT/ML SYR SQ SCH (20:42)
[2021-02-10 23:56] LABS: Glucose,Whole Blood 164 mg/dL (75-99)
[2021-02-11 05:45] LABS: Glucose,Whole Blood 161 mg/dL (75-99)
[2021-02-11] MEDS: INSULIN ASPART (NovoLOG) 100 UNIT/ML VIAL SQ SCH ×3 (05:57→17:10)
[2021-02-11] MEDS: CHOLECALCIFEROL 25 MCG (1000 IU) TABLET PO SCH (08:44)
[2021-02-11] MEDS: QUEtiapine 100 MG TAB PO SCH ×2 (08:45→21:25)
[2021-02-11] MEDS: ZINC SULFATE 220 MG CAP PO SCH (08:45)
[2021-02-11] MEDS: ACETAMINOPHEN TAB 325 MG TAB PO PRN (08:45)
[2021-02-11] MEDS: DEXAMETHASONE SOD PHOSPHATE 10 MG/ML 1 ML VIAL IVP SCH (08:45)
[2021-02-11] MEDS: ENOXAPARIN 40 MG/0.4 ML SYRINGE SQ SCH (08:46)
[2021-02-11] MEDS: PANTOPRAZOLE 40 MG/10 ML VIAL IVP SCH (08:46)
[2021-02-11] MEDS: ASCORBIC ACID 500 MG TAB PO SCH (08:47)
[2021-02-11] MEDS ORDERED: FUROSEMIDE 10 MG/ML 4 ML VIAL IV STA (10:33)
[2021-02-11 11:47] VITALS: BMI 29.9
--- NOTE | 2021-02-11 12:34 | P.PN ---
Subjective Progress Note Date: 02/11/21 CHIEF COMPLAINT: COVID-19 pneumonia HISTORY OF PRESENT ILLNESS: Patient currently on cardiac floor. He is on trach collar. Patient reports is tolerating regular diet. He does report increase in oral intake. He has passed a swallow eval. He has eaten small amount of regular food. He is tolerating tube feeds. No residual reported. He is having bowel movements. He did have a fever of 101 this morning. PHYSICAL EXAM: VITAL SIGNS: Reviewed. GENERAL: Well-developed in no acute distress. HEENT: No sclera icterus. Extraocular movements grossly intact. Moist buccal mucosa. Head is atraumatic, normocephalic. Tracheostomy site clean dry and intact ABDOMEN: Soft. Nondistended. Nontender. PEG tube site clean dry and intact. Peg tube at 3cm felicity NEUROLOGIC: Awake ASSESSMENT: 1. Acute hypoxic respiratory failure secondary to COVID-19 pneumonia status post tracheostomy placement 2. Severe protein calorie malnutrition status post PEG tube placement PLAN: -Continue regular diet -There is starting to wean patient's PEG tube feedings today -Continue supportive care -Continue to increase activity Physician Occupational Health Technician note has been reviewed by physician. Signing provider agrees with the documented findings, assessment, and plan of care. Objective - Vital Signs Vital signs: Vital Signs Temp 99.2 F 02/11/21 12:00 Pulse 88 02/11/21 12:00 Resp 16 02/11/21 12:00 BP 104/67 02/11/21 12:00 Pulse Ox 95 02/11/21 08:53 Intake & Output 02/10/21 02/11/21 02/11/21 18:59 06:59 18:59 Intake Total 420 10 Output Total 650 750 200 Balance -650 -330 -190 Weight 94.5 kg Intake: IV 20 10 Invasive Line 8 20 10 Tube Feeding 400 Output: Urine 650 750 200 Other: Voiding Method Urinal Urinal # Voids 1 # Bowel Movements 1 ABP, PAP, CO, CI - Last Documented Arterial Blood Pressure 118/93 - Labs CBC & Chem 7: 02/08/21 08:50 02/08/21 08:50 Labs: Abnormal Lab Results - Last 24 Hours (Table) 02/10/21 02/10/21 02/11/21 Range/Units 18:00 23:53 05:44 POC Glucose (mg/dL) 173 H 164 H 161 H (75-99) mg/dL Microbiology - Last 24 Hours (Table) 02/08/21 08:50 Blood Culture - Preliminary Blood No Growth after 72 hours
--- NOTE | 2021-02-11 13:10 | P.PN ---
Subjective Progress Note Date: 02/11/21 On today's evaluation of 02/11/2021, the patient is on a trach collar and his resting comfortably on the recliner. The patient is currently on a trach collar with an FiO2 of 80%. His pulse ox is currently around 94-95%. He is producing some respiratory secretions which I made recommendations to culture and collect. Meanwhile, the chest x-ray that was done yesterday showed diffuse cardio pulmonary processes with interval worsening of the findings on the left lung, probably development of some further consolidation versus effusion. Based on that, the patient was given additional dose of Lasix. For now, the patient is calm and comfortable. According to him is having full meal and the patient is still on enteral feeding for nutritional support through a PEG tube. I think it's reasonable to stop enteral feeding for now. This will also put the patient had a risk of aspiration. Meanwhile, we'll continue the Decadron 4 mg on a daily basis. The patient on Levemir insulin 10 units at bedtime along with NovoLog status Coverage. The patient is on Lovenox 40 mg subcu for DVT prophylaxis. Objective - Vital Signs Vital signs: Vital Signs Temp 99.2 F 02/11/21 12:00 Pulse 88 02/11/21 12:00 Resp 16 02/11/21 12:00 BP 104/67 02/11/21 12:00 Pulse Ox 95 02/11/21 08:53 Intake & Output 02/10/21 02/11/21 02/11/21 18:59 06:59 18:59 Intake Total 420 10 Output Total 650 750 200 Balance -650 -330 -190 Weight 94.5 kg Intake: IV 20 10 Invasive Line 8 20 10 Tube Feeding 400 Output: Urine 650 750 200 Other: Voiding Method Urinal Urinal # Voids 1 # Bowel Movements 1 ABP, PAP, CO, CI - Last Documented Arterial Blood Pressure 118/93 - Exam No acute distress, oriented 3, sitting at the bedside, on a trach collar. Saturations are 94%. HEENT examination is grossly unremarkable. Neck supple. Full range of motion. No adenopathy thyromegaly or neck vein distention. Midline tracheostomy tube noted in good position. Cardiovascular examination reveals regular rhythm rate. S1-S2 normal. No S3 or S4. No discernible murmur noted. Heart sounds are distant. Heart rate 80 bpm. Lungs reveal guarded bilateral rhonchi. Breath sounds equal bilaterally. No wheezes or crackles. Saturations are 94%. Abdomen soft bowel sounds are heard. No masses or tenderness. PEG tube noted. Extremities are intact. No cyanosis clubbing or edema. Skin is without rash or lesion. Neurologic examination is brief but nonfocal. - Labs CBC & Chem 7: 02/08/21 08:50 02/08/21 08:50 Labs: Abnormal Lab Results - Last 24 Hours (Table) 02/10/21 02/10/21 02/11/21 Range/Units 18:00 23:53 05:44 POC Glucose (mg/dL) 173 H 164 H 161 H (75-99) mg/dL Microbiology - Last 24 Hours (Table) 02/08/21 08:50 Blood Culture - Preliminary Blood No Growth after 72 hours Assessment and Plan Plan: 1 Acute hypoxemic respiratory failure secondary to coronavirus associated pneumonia, with intubation and mechanical ventilation, initiated on January 14, for worsening hypoxemia. Noted the patient was initially on nasal cannula oxy gen supplementation and following that the patient required BiPAP and ultimately the patient to be intubated on 01/14/2021 for respiratory failure secondary to COVID-19 related to pneumonia. Patient is currently on a combination of Decadron and Baricitinib per protocol. The patient is post tracheostomy tube insertion and suggested was inserted on 01/23/2021. The patient was subsequently weaned off the mechanical ventilator and the patient is currently on 8% trach collar. Most recent chest x-ray from 02/20/2021 showed some interval worsening lower lobe consolidation and possibly development of some effusion. Patient is afebrile. No sinus of any respiratory difficulties for now. 2 Acute respiratory distress syndrome (ARDS), secondary to coronavirus associated pneumonia. 3 Previous history of bilateral pulmonary emboli, and left leg DVT, 2016, currently on Lovenox. 4 History of osteoarthritis. 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 This was likely a colonizer. 6 Liver function tests are mildly elevated as the patient has a mild component of transaminitis, rest of the inflammatory markers are essentially improving including LDH, LFTs are improving and the patient will be started on voriconazole and LFTs are being monitored very closely 7. Acute sepsis with hypotension probably related to respiratory infection/pneumonia, recovered 8 acute kidney injury, recovered Plan: Keep the patient on trach collar at 80% and gradually wean it down Obtain sputum Gram stain and culture Check LEVELS Repeat chest x-ray in the morning The patient dose of Lasix 40 mg IV push Discontinued enteral feeding as the patient is meeting his caloric requirements and enteral feeding will put him at high risk of aspiration Continue physical therapy We'll continue to follow
[2021-02-11 13:48] LABS: Glucose,Whole Blood 272 mg/dL (75-99)
--- NOTE | 2021-02-11 14:07 | P.PN ---
Subjective Progress Note Date: 02/11/21 HISTORY OF PRESENT ILLNESS This is a 55-year-old male patient of Dr. Palm with past medical history of bilateral pulmonary emboli and left leg DVT in 2016, osteoarthritis, degenerative changes in the cervical spine status post fusion of C5-6. Patient states he has not been feeling well since Thursday. He said shortness of breath cough is nonproductive along with fever and chills, exertional dyspnea. He denies having any nausea vomiting or diarrhea. He denies any close contacts to known Covid people. He states his temperature is been up to 102.7 at home. He is not vaccinated. Patient presented to [facility] emergency center and found to be febrile at 101.1, heart rate 90, blood pressure 122/80, pulse ox 85% on room air. CBC revealed platelet count of 128. D-dimer 0.82. Sodium 131 otherwise electrolytes and renal function were normal. Blood sugar 147. Troponin negative. Coronavirus PCR positive. Chest x-ray reveals patchy bilateral airspace disease especially in the mid and lower lungs. Correlate for multifocal pneumonia including Covid 19 pneumonia. CTA of the chest was suboptimal study without central acute pulmonary embolism. Bilateral multifocal and confluent groundglass opacities right greater than left and greater in the lower lungs consistent with known Covid 19 infection. Patient is seen today in the emergency center waiting for bed on the [facility] floor, started on Remdesivir, Lovenox, dexamethasone and vitamin supplements, consult with pulmonary medicine. 01/12: Patient is comfortable, however he requires 40 L of oxygen via airvo sats 88-89%, he feels better today compared to his nonrebreather mask yesterday, patient did not sleep well, patient does not have any cough, however he does have shortness of breath. Patient denies any aspiration, appetite is still marginal, patient has insomnia vitals, blood sugar currently is 243, creatinine of 0.98, d-dimer is 0.84, CRP is elevated, LDH is elevated, venous Doppler, shows chronic DVT, left popliteal, in the posterior tibial veins, without any obstruction of flow. No acute DVT identified CTA, shows suboptimal, without central acute pulmonary emboli, has bilateral multifocal and confluent groundglass opacities, right greater than left, lower lobe, consistent with COVID-19 infection and remdesivir discontinued by pulmonary today and is outside of the window for remdesivir 01/13: Patient is on aerosol 14 L, with nonrebreather mask, 15 L, hypoxemia noted on 88%, worse with coughing, however his nonrebreather mask is very loose. Nurse is worriedwith the turn of events, and requested an ICU transfer, Dr. Canales has seen the patient, and is stable for floor management at this time, patient is not significant tachypnea, and is not tiring out. There is no hemoptysis, and mucus is productive, patient's doing incentive spirometry, up 2 L. 01/14: Patient remains in the intensive care unit, he was intubated this morning as he was desaturating with BiPAP. He has been afebrile, heart rate 73, blood pressure 93/47, pulse ox 90%. CBC is unremarkable. D-dimer 12.04. Sodium 135, creatinine 0.82. LDH 2929, C-reactive protein 5.2. Sputum culture is in progress. He has had good urine output. Chest x-ray reveals no evident convocation from catheters. Bilateral airspace disease. 01/15: Patient remains in the intensive care intubated and on mechanical ventilation with tidal volume 450, FiO2 80, PEEP of 15. Patient has been started on norepinephrine and remains on propofol, heparin drip, Nimbex. Repeat blood work revealed unremarkable CBC. Creatinine 0.88. Capillary blood glucose running between 195 and 215. AST 126, ALT 183, alkaline phosphatase 109. Sputum culture is in progress. Repeat chest x-ray reveals correlate for pneumonia versus edema, ARDS. Patient is continued on vitamin supplements, heparin drip, dexamethasone and Baricitinib. patient remains in intensive care intubated on mechanical ventilator at FiO2 60 percent PEEP respiratory rate of 30 tidal volume 450. Continues to maintain saturations between 94-95% on the current settings. Vitals otherwise stable labs reviewed today WBC is 9.5 hemoglobin 12.4 d-dimer is elevated at 4.98. ABG obtained today suggest pH of 7.4 pO2 53 bicarb 26 on 50% FiO2. Creatinine stable at 0.78 glucose is maintained between 145-190. LDH 1564 CRP is elevated at 4. Patient's inflammatory markers trending down. Patient's vent settings increased to 80% for inadequate oxygenation. Chest x-ray reviewed showed bilateral infiltrate consistent with coronavirus associated pneumonia. Patient continues intubated on propofol 70 bike but patient examined Nimbex 1.25 g daily per minute. Patient to receive 1 dose of Lasix today. Continue to remain on baricitinib day 2 PAtient remains intubaated since . patient continues too remain on assist control, TV 450 , peep 15 and fio2 of 60 %. patient was proned for 16 hours yesterday. CXR was reviewed, COVID pneumonia but no significant change was noted, Will repeat inflammatory markers tomorrow. Vent managment per portable trackman. Patient contines to remain propofol , nimbex. Continue on lovenox, baricitinib, dexamethasone and vit supplement 01/18 patient continues to remain intubated. Covid pneumonia. Is currently on assist control respiratory rate of 30 tidal volume 450 FiO2 of 55% and PEEP of 15. She is currently on heparin drip, propofol and Nimbex. Patient continues to tolerate prone positioning 16 hours overnight. Continues to receive dexamethasone, vitamin supplement, anticoagulation with heparin, baricitinib. Labs are reviewed patient has a hemoglobin stable at 12.2. This morning pH 7.48 PCO2 44 bicarb 32 creatinine 0.73 AST 100 chest x-ray done this morning suggestive of ARDS and pneumonia 01/19 patient continues to remain intubated currently on assist-control vent with a rate of 30 tidal volume 450 FiO2 50 and PEEP of 15. Continues to remain on propofol and Nimbex. Continue heparin drip for anticoagulation. Remains on Baricitinib , vitamin supplementation and dexamethasone. Labs reviewed hemoglobin stable at 12 PTT 53 blood gas obtained today suggest a pH of 7.45 pCO2 46 pO2 69 bicarb 32 BUN 23 creatinine 0.0.8 glucose 122 AST ED ALT 226. inflammation markers ordered for tomorrow last set was obtained on 01/12 01/20 Intubated. Vitals reviewed patient's afebrile pulse of 68 respiratory rate 30 blood pressure. 94/56 oxygen 91% on 50% FiO2. Patient remains on assist control, tidal volume 450 respiratory rate 30 FiO2 of 50% and PEEP of 15. He is currently on Pneumovax at 3 mics per KG per minute propofol at 50 Micro-K to Coumadin and heparin drip. Patient labs are reviewed hemoglobin is 11.7. Arterial blood gas at 50% FiO2 has a pH of 7.47 pO2 of 77 bicarb of 31 BUN 24 creatinine 0.7 LDH [id number] CRP 8.70. CRP is slightly elevated with improvement in LDH. Continue to monitor patient with the goal with treatment on heparin, as dexamethasone, vitamin supplementation and Baricitinib . Blood sugar are well controlled. 01/21: Patient remains intubated and on mechanical ventilation with tidal volume 400, FiO2 40 and PEEP of 16. Patient is on propofol and fentanyl drips. He is on tube feedings to be increased to 26 ML's per hour and tolerating. She he has had 100 250 ML's of urine output per hour. He has been afebrile, heart rate 70, respiratory rate 30, blood pressure 115/64, pulse ox 93%. Repeat blood work reveals WBC 7.4, hemoglobin 12, platelet count 310. D-dimer 1.23. Sodium 134, BUN 24 and creatinine 0.73. Blood sugars are running between 101 and 164. AST 105, ALT 261, alkaline phosphatase 135. LDH 999. C-reactive protein 13.5. Albumin 2.9. Gallbladder ultrasound reveals nonspecific pattern of liver can be seen with hepatic steatitis or hepatocellular disease including hepatitis. The chest x-ray reveals bilateral patchy airspace disease stable. 01/22: Remains in the intensive care unit intubated and on mechanical ventilation with tidal volume 400, FiO2 40, PEEP of 13. Paralytics for pause this morning and patient had significant drop in his pulse ox. He is currently on propofol, fentanyl and Nimbex. He has been afebrile, heart rate 73, blood pressure 99/63, pulse ox 90%. Repeat blood work reveals hemoglobin 11.6. Creatinine 0.81. Blood sugars are running between 98 and 155. AST 85, ALT 260, alkaline phosphatase 132. LDH 954, C-reactive protein 6.8. Repeat chest x-ray reveals bilateral patchy diffuse airspace disease stable. Patient is continued on Baricitinib, Lovenox 40 mg subcu daily, dexamethasone 6 mg IV push and vitamin supplements 01/23: Remains in the intensive care unit on mechanical ventilation with tidal volume 400, FiO2 40 and PEEP of 10. Patient is scheduled for trach and PEG tube placement today. He is currently on propofol, fentanyl and Nimbex. Patient remains afebrile, heart rate 69, respiratory rate 30, blood pressure 120/76, pulse ox 93%. Repeat blood work reveals creatinine is 0.71. WBC 8.3, hemoglobin 12.9. AST 111, ALT 328, alkaline phosphatase 153. Blood sugars have been running between 92 and 193. Sputum culture is showing Corynebacterium species from 01/21 and Aspergillus from 01/14. Repeat chest x-ray reveals bilateral patchy diffuse airspace disease stable. Patient is continued on Baricitinib, Lovenox 40 mg subcu daily, dexamethasone 6 mg IV push and vitamin supplements 01/24: Patient is status post trach and PEG tube done yesterday by Dr. Olivares. Patient is off Nimbex and he has his eyes open but not following commands. Patient's is planning to come in today to see him. He remains on ventilator with tidal volume 300, FiO2 50 and PEEP of 10. Repeat chest x-ray reveals diffuse bilateral infiltrate stable. Antibiotics have been changed to ce fepime and patient started on IV Voriconazole. Patient is continued on dexamethasone, Lovenox and vitamin supplements. WBC 17.2, hemoglobin 12.3. Sodium 130, BUN 21 creatinine 0.83. Total bilirubin 2, AST 54, ALT 248, alkaline phosphatase 132. Capillary blood glucose running between 80 and 193. 01/25: Patient remains in the intensive care unit on mechanical ventilation with tidal volume 400, FiO2 is been increased to 100 and PEEP of 12. Patient is currently on propofol, and was started on vasopressors yesterday and is status post 2 L of IV fluid. Temperature max 101.3. Pulse 87, respiratory rate 33, blood pressure 120/57, pulse ox 95%. patient monitor is a sinus rhythm. Repeat blood work reveals WBC 8.3, hemoglobin 11. Sodium 136, chloride 108. Creatinine is 0.83. Calcium 7.9. Total bilirubin 2.7, AST 64, ALT 171, alkaline phosphatase 127. LDH 1187. C-reactive protein 32.6. Blood sugars are running between 133 and 173. Urine culture is showing gram-negative bacilli. Blood culture from 01/24 showing no growth at 24 hours. Repeat chest x-ray reveals clear to megaly with bilateral confluent mid to lower lung opacities consistent with: 19 infection redemonstrated. No significant change. Patient is currently on cefepime, Zyvox and there, so for worsening bilateral pulmonary infiltrate, pneumonia. 01/26: Patient remains in intensive care unit on mechanical ventilation with tidal volume 450, FiO2 80 and PEEP of 12. He has been afebrile for greater than 24 hours. Heart rate 80, blood pressure 132/70, pulse ox 86%. He does have leaking around the tracheostomy site. Repeat blood work reveals WBC 8, hemoglobin 11.1, platelet count 291. Sodium 135, potassium 5.8, creatinine 1.15. Total bilirubin 1.8, AST 101, ALT 194, alkaline phosphatase 135. LDH 1156. C-reactive protein 35.7. Blood sugars are running between 154 and 183. Patient will be started on Levemir 10 units at bedtime. He is continued on cefepime, Zyvox and voriconazole. 01/27: Patient remains intubated and on mechanical ventilation with tidal volume 400 50, FiO2 60, PEEP of 12. Plan is to try and wean oxygen down today. Tracheostomy tube has been manipulated and repositioned. He is not requiring vasopressors, currently on propofol. Chest x-ray reveals no significant interval change. Patient has had good urine output with BUN of 37 creatinine 1.28. Other lab work reveals WBC 9.8, hemoglobin 10.7. D-dimer 5.45. Total bilirubin 1.4, AST 153, ALT 282, alkaline phosphatase 138, LDH 1073. C-reactive protein 16.3. ProCalcitonin 10.1. 01/28: Remains in the intensive care unit, intubated and on mechanical ventilation with tidal volume 450, FiO2 of 60 and PEEP of 10. Patient is responsive, follows a few simple commands. He is currently on antibiotics in the form of cefepime, Zyvox and voriconazole. Patient is also continued on Decadron and Lovenox. Repeat blood work reveals WBC of 10, hemoglobin 10.5. D- dimer 5.63. C-reactive protein 6.2. LDH 1025. Total bilirubin 1.3, AST 95, ALT 250. Patient is on tube feedings at goal. He has had good urine output. Social work will start process for discharge to select specialty with anticipation of him being ready by the end of the week. 01/29 patient is currently in the ICU on with tracheostomy with tidal volume 450 FiO2 decreased to 55 this morning with PEEP of 10. Patient is responsive get agitated once propofol is discontinued. Patient is getting of diarrheal ordered every few hours to help with pain control. Currently stays on antibiotic in the form of cefepime, Zyvox and voriconazole. Urine output is appropriate in her on 75 200 mL per hour. Continues to remain on Decadron and Lovenox. He's currentl y off norepinephrine off Precedex is off fentanyl. Chest x-ray reviewed has bilateral interstitial infiltrate not changed. Labs reviewed, WBC 11.1 hemoglobin is 11.4 R blood gas this morning on 60% FiO2 suggest EF pO2 of 65 bicarb 26 blood sugar controlled ranging from 156-197. Ventilator management per pulmonary as reduce the FiO2 to 55 . Repeat blood gas in 24 hours. Patient initiating Seroquel 50 twice a day for agitation. Discussion with the nurse was made to reduce the Seroquel to 25 twice a day if patient appears to be sedated 01/30: Patient remains in intensive care unit, intubated status post tracheostomy and PEG tube placement. He is on tidal volume 450, FiO2 of 50 and PEEP is down to 10. He is able to follow some simple commands. Pulmonary medicine is planning to discontinue propofol and switched to Precedex. He is on tube feedings. Social work is following for possible discharge to [facility] by the end of the week. 01/31: Patient remains in the intensive care unit intubated and on mechanical ventilation status post PEG tube and trach. Tidal volume 450, FiO2 50 and PEEP of 10. Patient is on propofol. He is on PEG tube feedings at goal. Patient is continued on Lovenox, Decadron, supplements. Cefepime has been discontinued and he is continued on Zyvox and 4, his old. Social work is following closely for discharge planning however at this time, there are no facilities that will accept the patient. 02/01: Patient is out of Covid isolation. Patient remains on mechanical ventilation with tidal volume 450, FiO2 50, PEEP of 10. Patient is on propofol which is to be weaned off today. He still has Sim catheter with good urine output. Feedings are at goal. Patient has occasional cough, mild edema. Patient is refusing IV Dilaudid for pain. Bowel movements been soft but no diarrhea. Patient is afebrile, heart rate 68, respiratory rate 24, blood pressure 130/75, pulse ox 92%. 02/02: Patient is seen in ICU he is currently out of Covid isolation. Remains on mechanical ventilation with trach. Tidal volume 450, rate of 22 with a PEEP of 8 FiO2 of 50%. Patient is currently on propofol which will continue to be weaned today with the addition of Ativan. Sim catheter in place with good urine output. Feedings are at goal. Does have occasional cough, mild edema. 02/03: Patient is seen in ICU remains on mechanical ventilation with trach. Tidal volume 450 rate of 22 with a PEEP of 6 FiO2 of 45%. Patient is off of propofol. Discussion for transitioned to CPAP machine for today. Sim catheter in place with good urine output. Feedings are at goal. Patient does have occasional cough continues have mild edema. Patient is able to follow commands bilateral upper extremity strength equal. 02/04: Patient remains in the intensive care unit. He is currently on trach collar at 40% FiO2 with pulse ox of 97%. He is afebrile, heart rate in the 50s to 80s, blood pressure 105/69. Repeat blood work reveals WBC 9.9, hemoglobin 11.1, platelet count 230. Sodium 135, potassium 4.3, chloride 101, CO2 29, BUN 40 creatinine 0.96. Blood sugars are running between 125 and 211. Repeat chest x-ray reveals findings consistent with Covid pneumonia consider ARDS. Patient is now slowly progressing and his goal is to get home by [place]. 02/05: Patient remains in the intensive care unit. He is on trach collar at 40% FiO2 with pulse ox of 87 and 95%. Blood pressure 103/66, heart rate in the 50s and 60s, afebrile. Patient is able to mouth words and cough is better today. He is needing to be suctioned for secretions. He is nothing by mouth and on peg tube feedings at goal. Repeat blood work reveals hemoglobin 11.7, WBC 11.2. Sodium 136, potassium 5, chloride 99, CO2 32, BUN 38 and creatinine 1. Blood sugars are running between 125-197. Repeat chest x-ray consistent with history of pneumonia. Patient may move out of the ICU tomorrow. 02/06: A remains in the intensive care unit. His daughter is at the bedside. He has been downgraded to [facility] with telemetry and waiting for bed. He underwent barium swallow today and found no aspiration or penetration. Speech therapy has recommended regular diet with thin liquids. His secretions are much less and he is coughing less. He has been afebrile, heart rate in the 70s, blood pressure 103/59, pulse ox 9094% on 40% trach collar. Blood sugars are running between 123 and 165. 02/07: Patient is today on the cardiac stepdown unit. He is on trach collar at 80% FiO2 with pulse ox of 91%. He has been afebrile, heart rate 107, blood pressure 101/67. Patient a 25% of lunch and supper yesterday, he is enjoying being able to eat. He remains on PEG tube feedings as well . The patient has been approved for Medicaid and social work will discuss option of ECF with family. We will add in a consult for Dr. Nuñez for inpatient rehab. 02/08: Patient has been seen by Dr. Nuñez for possible inpatient rehab with goal of discharge on Thursday. Patient developed a fever 102 this morning at 4 AM, heart rate 101, blood pressure 97/64. Pulse ox is percent on 80% trach collar. Capillary blood glucose running between 114 and 209. We have ordered stat blood culture. Patient is on PEG tube feedings and oral diet. Repeat blood work reveals WBC 18.7, hemoglobin 12, platelet count 244. Electrolytes are normal. BUN 34 creatinine 1.02. Blood sugar 151. /18: Patient is doing okay, and the medical floor, still on trach at 80%, patient's 18 on his own unsupervised, has rhonchi on breathing, PEG tube infusing VITAL 1.2, at 50 mL an an hour, on top of oral supplementation and sugar, twice a day. Patient is swallowing meds, any difficulty, is at bedside, updated regarding plans for possible inpatient rehab, still needs to be determined. 02/10: Patient is seen sitting up in bed, trying to expectorate mucus, has a hard time expectorating this time, thick tenacious mucus, requesting to have deep suctioning. is at bedside, no new fever no chills, still on trach 80%, no aspiration, PEG tube infusing at 50 mL an hour as previous, anticipated rehab, on Thursday to be determined whether's inpatient [place] subacute 02/11: Patient is seen today on the cardiac stepdown unit, patient's is at bedside. Patient is complaining of a backache. Patient is state that the discharge plan has changed and they are looking at having the trach removed and also having the PEG tube removed prior to discharge. PEG tube feedings are b eing weaned. REVIEW OF SYSTEMS. Constitutional: Noted fever, no chills, no night sweats. No weight change. Reports weakness, reports fatigue or lethargy. No daytime sleepiness. EENT: No headache. No blurred vision or double vision, no loss of vision. No loss of Hearing, no ringing in the ears, no dizziness. No nasal drainage or congestion. No epistaxis. No sore throat. Lungs: No shortness of breath, noted occasional cough, noted sputum production, proving. No wheezing. Cardiovascular: No chest pain, no lower extremity edema. No palpitations. No paroxysmal nocturnal dyspnea. No orthopnea. No lightheadedness or dizziness. No syncopal episodes. Abdominal: no abdominal discomfort. No nausea, vomiting. no diarrhea. No constipation. No bloody or tarry stools. no loss of appetite. Genitourinary: No dysuria, increased frequency, urgency. No urinary retention. Musculoskeletal: No myalgias. No muscle weakness, no gait dysfunction, no frequent falls. No back pain. No neck pain. Integumentary: No wounds, no lesions. No rash or pruritus. No unusual bruising. No change in hair or nails. Neurologic: No aphasia. No facial droop. No change in mentation. No head injury. No headache. No paralysis. No paresthesia. Psychiatric: No depression. No anxiety. No mood swings. Endocrine: No abnormal blood sugars. No weight change. No excessive sweating or thirst. PHYSICAL EXAMINATION Gen: This is a 55-year-old male. He is resting in bed, on trach collar at 80% FiO2, status post trach and PEG. HEENT: Head is atraumatic, normocephalic. Pupils equal, round. Sclerae is anicteric. Tracheostomy intact. NECK: Supple. No JVD. No lymphadenopathy. LUNGS: Crackles bilaterally. No accessory muscle usage. No intercostal retractions. HEART: Regular rate and rhythm. No murmur. ABDOMEN: Soft. Bowel sounds are present. No masses. No tenderness. PEG tube in place. EXTREMITIES: No pedal edema. No calf tenderness. NEUROLOGICAL: Patient is awake, alert and oriented 3, and able to follow commands and answer questions appropriately. ASSESSMENT AND PLAN 1. Acute hypoxic respiratory failure secondary to Covid 19 pneumonia and possible secondary pneumonia, gram-negative and fungal. Patient required intubation 01/14. Patient is status post trach and PEG tube placement 01/[address] Olivares. Patient started on January 12/2021 on baricinib 4 mg daily, discontinued on 01/24. Continue dexamethasone 6 mg IV daily, Lovenox 40 mg subcu daily, and vitamin supplements. consult with Dr. Nuñez for IP rehab. Patient is now planning to have trach, PEG tubes removed and go home with his family. 2. Acute respiratory distress syndrome secondary to coronavirus pneumonia. 3. Acute septic shock requiring vasopressors. Patient is status post IV fluid bolus and off vasopressors. 4. History of bilateral pulmonary emboli and DVT in 2016. CTA negative for PE. Not on chronic anticoagulation. 5. Acute transaminitis secondary to Covid 19. 6. Generalized osteoarthritis. 7. Degenerative changes in the cervical spine status post fusion of C5-6. 8. 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 9. Elevated liver function tests, transaminitis. 10. Hyperglycemia secondary to steroids. Patient is on NovoLog scale, Levemir 10 units at bedtime added. 11. Severe hyperkalemia, resolved. 12. GI prophylaxis. Protonix. 13. DVT prophylaxis. Lovenox. 14. Acute agitation on ventilator.Seroquel to 100 mg twice daily by portable trackman. 15. Moderate protein calorie malnutrition requiring PEG tube. Patient's diet advanced to regular with thin liquids by mouth, continue PEG tube feedings until oral diet is sufficient. DISCHARGE PLAN HOME WITH HOME CARE Impression and plan of care have been directed as dictated by the signing physician. Shakila Mosqueda nurse practitioner acting as scribe for signing physician. Objective - Vital Signs Vital signs: Vital Signs Temp 98.0 F 02/11/21 03:28 Pulse 88 02/11/21 03:28 Resp 20 02/11/21 03:28 BP 107/74 02/11/21 03:28 Pulse Ox 95 02/11/21 08:53 Intake & Output 02/10/21 02/11/21 02/11/21 18:59 06:59 18:59 Intake Total 420 Output Total 650 750 200 Balance -650 -330 -200 Intake: IV 20 Invasive Line 8 20 Tube Feeding 400 Output: Urine 650 750 200 Other: Voiding Method Urinal # Voids 1 # Bowel Movements 1 ABP, PAP, CO, CI - Last Documented Arterial Blood Pressure 118/93 - Labs CBC & Chem 7: 02/08/21 08:50 02/08/21 08:50 Labs: Abnormal Lab Results - Last 24 Hours (Table) 02/10/21 02/10/21 02/10/21 Range/Units 12:03 18:00 23:53 POC Glucose (mg/dL) 219 H 173 H 164 H (75-99) mg/dL 02/11/21 Range/Units 05:44 POC Glucose (mg/dL) 161 H (75-99) mg/dL Microbiology - Last 24 Hours (Table) 02/08/21 08:50 Blood Culture - Preliminary Blood No Growth after 48 hours
--- NOTE | 2021-02-11 14:39 | P.PN ---
Progress Note - Text Therapy notes viewed and document much improvement functionally from patient. PT reports supervision for bed mobility and minimal assistance for transfers and gait 60 feet with roller walker. Fatigues. OT reports supervision for upper and lower bathing and dressing, toileting and functional mobility and ADL transfers. Comments and plan: At this time patient medically improved and has need of only physical therapy at this time, not occupational therapy. Thus would appear to be too good for inpatient rehab. Continue to follow with yourself though.
[2021-02-11 17:01] LABS: Glucose,Whole Blood 178 mg/dL (75-99)
[2021-02-11] MEDS ORDERED: ALPRAZolam 0.5 MG TAB PO STA (21:21)
[2021-02-11] MEDS: INSULIN DETEMIR (LEVEMIR) 100 UNIT/ML SYR SQ SCH (21:25)
[2021-02-12 00:05] LABS: Glucose,Whole Blood 130 mg/dL (75-99)
[2021-02-12] MEDS: INSULIN ASPART (NovoLOG) 100 UNIT/ML VIAL SQ SCH ×4 (00:06→17:29)
[2021-02-12 06:33] LABS: Glucose,Whole Blood 121 mg/dL (75-99)
[2021-02-12] MEDS: ASCORBIC ACID 500 MG TAB PO SCH (09:15)
[2021-02-12] MEDS: ENOXAPARIN 40 MG/0.4 ML SYRINGE SQ SCH (09:15)
[2021-02-12] MEDS: ZINC SULFATE 220 MG CAP PO SCH (09:15)
[2021-02-12] MEDS: CHOLECALCIFEROL 25 MCG (1000 IU) TABLET PO SCH (09:15)
[2021-02-12] MEDS: QUEtiapine 100 MG TAB PO SCH ×2 (09:15→20:15)
[2021-02-12] MEDS: DEXAMETHASONE SOD PHOSPHATE 10 MG/ML 1 ML VIAL IVP SCH (09:16)
[2021-02-12] MEDS: PANTOPRAZOLE 40 MG/10 ML VIAL IVP SCH (09:16)
--- NOTE | 2021-02-12 09:38 | XR ---
EXAMINATION TYPE: XR chest 1V portable DATE OF EXAM: 02/12/2021 COMPARISON: 02/10/2021 HISTORY: Shortness of breath TECHNIQUE: Single frontal view of the chest is obtained. FINDINGS: Tracheostomy tube and right-sided PICC line. Diffuse bilateral infiltrate with cardiomegal y. Small bilateral pleural effusions. No pneumothorax. Limited inspiration. IMPRESSION: Stable diffuse bilateral infiltrates.
--- NOTE | 2021-02-12 09:42 | P.PN ---
<Karlie Walker - Last Filed: 02/12/21 09:39> Subjective Progress Note Date: 02/12/21 CHIEF COMPLAINT: COVID-19 pneumonia HISTORY OF PRESENT ILLNESS: Patient currently on cardiac floor. He is on trach collar. Patient is tolerating diet. His PEG tube feedings have been discontinued. Patient reports that he is eating at least half of the tray. He denies any nausea or vomiting. He is having bowel movements. Afebrile. Patient evaluated by Dr. Nuñez and is a candidate for inpatient rehab. PHYSICAL EXAM: VITAL SIGNS: Reviewed. GENERAL: Well-developed in no acute distress. HEENT: No sclera icterus. Extraocular movements grossly intact. Moist buccal mucosa. Head is atraumatic, normocephalic. Tracheostomy site clean dry and intact ABDOMEN: Soft. Nondistended. Nontender. PEG tube site clean dry and intact. Peg tube at 3cm felicity NEUROLOGIC: Awake and alert ASSESSMENT: 1. Acute hypoxic respiratory failure secondary to COVID-19 pneumonia status post tracheostomy placement 2. Severe protein calorie malnutrition status post PEG tube placement PLAN: -Continue regular diet -Continue supportive care -Continue to increase activity Physician Senior Climate Advisor note has been reviewed by physician. Signing provider agrees with the documented findings, assessment, and plan of care. Objective - Vital Signs Vital signs: Vital Signs Temp 98.3 F 02/12/21 08:00 Pulse 84 02/12/21 08:00 Resp 16 02/12/21 08:00 BP 107/65 02/12/21 04:00 Pulse Ox 97 02/12/21 08:00 Intake & Output 02/11/21 02/12/21 02/12/21 18:59 06:59 18:59 Intake Total 20 20 118 Output Total 201 250 Balance -181 20 -132 Weight 94.5 kg Intake: IV 20 20 Invasive Line 8 20 20 Oral 118 Output: Urine 200 250 Urine/Stool Mix 1 Other: Voiding Method Urinal Urinal # Voids 1 2 ABP, PAP, CO, CI - Last Documented Arterial Blood Pressure 118/93 - Labs CBC & Chem 7: 02/08/21 08:50 02/08/21 08:50 Labs: Abnormal Lab Results - Last 24 Hours (Table) 02/11/21 02/11/21 02/11/21 Range/Units 11:53 13:45 16:58 POC Glucose (mg/dL) 272 H 178 H (75-99) mg/dL Procalcitonin 0.35 H (0.02-0.09) ng/mL 02/12/21 02/12/21 Range/Units 00:03 06:31 POC Glucose (mg/dL) 130 H 121 H (75-99) mg/dL Procalcitonin (0.02-0.09) ng/mL Microbiology - Last 24 Hours (Table) 02/11/21 14:24 Gram Stain - Preliminary Gastric Aspirate Sputum Culture - Preliminary 02/08/21 08:50 Blood Culture - Preliminary Blood No Growth after 72 hours <Johnathon Calderón - Last Filed: 02/12/21 15:39> Subjective As above. Patient tolerating diet. Tube feeds have been held. On trach collar. Bolster loose and slightly. We'll see on an as-needed basis. Please call if needed. Objective - Vital Signs Vital signs: Vital Signs Temp 98.3 F 02/12/21 08:00 Pulse 95 02/12/21 12:00 Resp 18 02/12/21 12:00 BP 101/66 02/12/21 12:00 Pulse Ox 94 L 02/12/21 12:00 Intake & Output 02/11/21 02/12/21 02/12/21 18:59 06:59 18:59 Intake Total 20 20 138 Output Total 201 500 Balance -181 20 -362 Weight 94.5 kg Intake: IV 20 20 20 Invasive Line 8 20 20 20 Oral 118 Output: Urine 200 500 Urine/Stool Mix 1 Other: Voiding Method Urinal Urinal Urinal # Voids 1 2 ABP, PAP, CO, CI - Last Documented Arterial Blood Pressure 118/93 - Labs CBC & Chem 7: 02/08/21 08:50 02/08/21 08:50 Labs: Abnormal Lab Results - Last 24 Hours (Table) 02/11/21 02/11/21 02/12/21 Range/Units 11:53 16:58 00:03 POC Glucose (mg/dL) 178 H 130 H (75-99) mg/dL Procalcitonin 0.35 H (0.02-0.09) ng/mL 02/12/21 02/12/21 Range/Units 06:31 11:39 POC Glucose (mg/dL) 121 H 134 H (75-99) mg/dL Procalcitonin (0.02-0.09) ng/mL Microbiology - Last 24 Hours (Table) 02/11/21 14:24 Gram Stain - Preliminary Gastric Aspirate Sputum Culture - Preliminary Gram Neg Bacilli 02/08/21 08:50 Blood Culture - Preliminary Blood No Growth after 96 hours Assessment and Plan (1) COVID Current Visit: Yes Status: Acute Code(s): U07.1 - COVID-19 SNOMED Code(s): 660788348
[2021-02-12 11:43] LABS: Glucose,Whole Blood 134 mg/dL (75-99)
[2021-02-12] MEDS: guaiFENesin 600 MG TABLET.ER PO SCH ×2 (12:40→20:16)
--- NOTE | 2021-02-12 14:41 | P.PN ---
Subjective Progress Note Date: 02/12/21 On today's evaluation of 02/11/2021, the patient is on a trach collar and his resting comfortably on the recliner. The patient is currently on a trach collar with an FiO2 of 80%. His pulse ox is currently around 94-95%. He is producing some respiratory secretions which I made recommendations to culture and collect. Meanwhile, the chest x-ray that was done yesterday showed diffuse cardio pulmonary processes with interval worsening of the findings on the left lung, probably development of some further consolidation versus effusion. Based on that, the patient was given additional dose of Lasix. For now, the patient is calm and comfortable. According to him is having full meal and the patient is still on enteral feeding for nutritional support through a PEG tube. I think it's reasonable to stop enteral feeding for now. This will also put the patient had a risk of aspiration. Meanwhile, we'll continue the Decadron 4 mg on a daily basis. The patient on Levemir insulin 10 units at bedtime along with NovoLog status Coverage. The patient is on Lovenox 40 mg subcu for DVT prophylaxis. 02/12/2021, the patient is being seen for a follow-up. The patient is doing well. No significant complaints. The patient is on a trach collar with an FiO2 of 60%. The patient was requiring a month decannulation. I do not think he is ready for decannulation yet. The chest x-ray still showing diffuse bilateral pulmonary infiltrates and this is a consultation with previous COVID 19 infection. The patient also was having significant respiratory secretions. Cultures were sent and is also still pending for now. Noted yesterday, discontinue the TPN and I start the patient on oral intake and the patient seems to be eating well and he is meeting his caloric requirements. He remains on Decadron 4 mg IV creatinine is 24 hours. He remains on Lovenox 40 mg subcu on a daily basis. He has no other complaints otherwise. He remains on IV Protonix. He is taking Seroquel 100 mg by mouth twice a day. No altered mentation. He is weak although on a daily basis his strength is improving. His blood sugar control is good Levemir 10 units along with a NovoLog sized screw coverage. Objective - Vital Signs Vital signs: Vital Signs Temp 98.3 F 02/12/21 08:00 Pulse 95 02/12/21 12:00 Resp 18 02/12/21 12:00 BP 101/66 02/12/21 12:00 Pulse Ox 94 L 02/12/21 12:00 Intake & Output 02/11/21 02/12/21 02/12/21 18:59 06:59 18:59 Intake Total 20 20 138 Output Total 201 500 Balance -181 20 -362 Weight 94.5 kg Intake: IV 20 20 20 Invasive Line 8 20 20 20 Oral 118 Output: Urine 200 500 Urine/Stool Mix 1 Other: Voiding Method Urinal Urinal Urinal # Voids 1 2 ABP, PAP, CO, CI - Last Documented Arterial Blood Pressure 118/93 - Exam No acute distress, oriented 3, sitting at the bedside, on a trach collar. Saturations are 94%. The patient is currently on 60 percent trach collar. HEENT examination is grossly unremarkable. Neck supple. Full range of motion. No adenopathy thyromegaly or neck vein distention. Midline tracheostomy tube noted in good position. Cardiovascular examination reveals regular rhythm rate. S1-S2 normal. No S3 or S4. No discernible murmur noted. Heart sounds are distant. Heart rate 80 bpm. Lungs reveal guarded bilateral rhonchi. Breath sounds equal bilaterally. No wheezes or crackles. Saturations are 94%. Abdomen soft bowel sounds are heard. No masses or tenderness. PEG tube noted. Extremities are intact. No cyanosis clubbing or edema. Skin is without rash or lesion. Neurologic examination is brief but nonfocal. - Labs CBC & Chem 7: 02/08/21 08:50 02/08/21 08:50 Labs: Abnormal Lab Results - Last 24 Hours (Table) 02/11/21 02/11/21 02/12/21 Range/Units 11:53 16:58 00:03 POC Glucose (mg/dL) 178 H 130 H (75-99) mg/dL Procalcitonin 0.35 H (0.02-0.09) ng/mL 02/12/21 02/12/21 Range/Units 06:31 11:39 POC Glucose (mg/dL) 121 H 134 H (75-99) mg/dL Procalcitonin (0.02-0.09) ng/mL Microbiology - Last 24 Hours (Table) 02/08/21 08:50 Blood Culture - Preliminary Blood No Growth after 96 hours 02/11/21 14:24 Gram Stain - Preliminary Gastric Aspirate Sputum Culture - Preliminary Assessment and Plan Plan: 1 Acute hypoxemic respiratory failure secondary to coronavirus associated pneumonia, with intubation and mechanical ventilation, initiated on January 14, for worsening hypoxemia. Noted the patient was initially on nasal cannula oxygen supplementation and following that the patient required BiPAP and ultimately the patient to be intubated on 01/14/2021 for respiratory failure secondary to COVID-19 related to pneumonia. Patient is currently on a combination of Decadron and Baricitinib per protocol. The patient is post tracheostomy tube insertion and suggested was inserted on 01/23/2021. The patient was subsequently weaned off the mechanical ventilator and the patient is currently on 60% trach collar. Most recent chest x-ray from 02/20/2021 showed some interval worsening lower lobe consolidation and possibly development of some effusion. Patient is afebrile. No sinus of any respiratory difficulties for now. I repeated the chest x-ray today on 02/12/2021 and the patient continues to have stable bilateral pulmonary infiltrates. I also obtain sputum for Gram stain and culture and the results are still pending for now. Meanwhile, the patient has been weaned down from 80% trach collar arthritis 60% trach collar, not ready for decannulation. 2 Acute respiratory distress syndrome (ARDS), secondary to coronavirus associated pneumonia. 3 Previous history of bilateral pulmonary emboli, and left leg DVT, 2016, currently on Lovenox. 4 History of osteoarthritis. 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 This was likely a colonizer. 6 Liver function tests are mildly elevated as the patient has a mild component of transaminitis, rest of the inflammatory markers are essentially improving including LDH, LFTs are improving and the patient will be started on vo riconazole and LFTs are being monitored very closely 7. Acute sepsis with hypotension probably related to respiratory infection/pneumonia, recovered 8 acute kidney injury, recovered Plan: Keep the patient on trach collar at 60% trach collar Obtain sputum Gram stain and culture, the results are still pending Though ITS own and was sent and the level is at 0.35 which is essentially low Repeat chest x-ray in the morning was noted and the patient have persistent bilateral pulmonary infiltrates Patient is tolerating oral intake and activity has been discontinued Continue Decadron Continue Levemir insulin Not ready for decannulation this point in time Continue physical therapy We'll continue to follow
--- NOTE | 2021-02-12 14:44 | P.PN ---
Subjective Progress Note Date: 02/12/21 HISTORY OF PRESENT ILLNESS This is a 55-year-old male patient of Dr. Palm with past medical history of bilateral pulmonary emboli and left leg DVT in 2016, osteoarthritis, degenerative changes in the cervical spine status post fusion of C5-6. Patient states he has not been feeling well since Thursday. He said shortness of breath cough is nonproductive along with fever and chills, exertional dyspnea. He denies having any nausea vomiting or diarrhea. He denies any close contacts to known Covid people. He states his temperature is been up to 102.7 at home. He is not vaccinated. Patient presented to [facility] emergency center and found to be febrile at 101.1, heart rate 90, blood pressure 122/80, pulse ox 85% on room air. CBC revealed platelet count of 128. D-dimer 0.82. Sodium 131 otherwise electrolytes and renal function were normal. Blood sugar 147. Troponin negative. Coronavirus PCR positive. Chest x-ray reveals patchy bilateral airspace disease especially in the mid and lower lungs. Correlate for multifocal pneumonia including Covid 19 pneumonia. CTA of the chest was suboptimal study without central acute pulmonary embolism. Bilateral multifocal and confluent groundglass opacities right greater than left and greater in the lower lungs consistent with known Covid 19 infection. Patient is seen today in the emergency center waiting for bed on the [facility] floor, started on Remdesivir, Lovenox, dexamethasone and vitamin supplements, consult with pulmonary medicine. 01/12: Patient is comfortable, however he requires 40 L of oxygen via airvo sats 88-89%, he feels better today compared to his nonrebreather mask yesterday, patient did not sleep well, patient does not have any cough, however he does have shortness of breath. Patient denies any aspiration, appetite is still marginal, patient has insomnia vitals, blood sugar currently is 243, creatinine of 0.98, d-dimer is 0.84, CRP is elevated, LDH is elevated, venous Doppler, shows chronic DVT, left popliteal, in the posterior tibial veins, without any obstruction of flow. No acute DVT identified CTA, shows suboptimal, without central acute pulmonary emboli, has bilateral multifocal and confluent groundglass opacities, right greater than left, lower lobe, consistent with COVID-19 infection and remdesivir discontinued by pulmonary today and is outside of the window for remdesivir 01/13: Patient is on aerosol 14 L, with nonrebreather mask, 15 L, hypoxemia noted on 88%, worse with coughing, however his nonrebreather mask is very loose. Nurse is worriedwith the turn of events, and requested an ICU transfer, Dr. Canales has seen the patient, and is stable for floor management at this time, patient is not significant tachypnea, and is not tiring out. There is no hemoptysis, and mucus is productive, patient's doing incentive spirometry, up 2 L. 01/14: Patient remains in the intensive care unit, he was intubated this morning as he was desaturating with BiPAP. He has been afebrile, heart rate 73, blood pressure 93/47, pulse ox 90%. CBC is unremarkable. D-dimer 12.04. Sodium 135, creatinine 0.82. LDH 2929, C-reactive protein 5.2. Sputum culture is in progress. He has had good urine output. Chest x-ray reveals no evident convocation from catheters. Bilateral airspace disease. 01/15: Patient remains in the intensive care intubated and on mechanical ventilation with tidal volume 450, FiO2 80, PEEP of 15. Patient has been started on norepinephrine and remains on propofol, heparin drip, Nimbex. Repeat blood work revealed unremarkable CBC. Creatinine 0.88. Capillary blood glucose running between 195 and 215. AST 126, ALT 183, alkaline phosphatase 109. Sputum culture is in progress. Repeat chest x-ray reveals correlate for pneumonia versus edema, ARDS. Patient is continued on vitamin supplements, heparin drip, dexamethasone and Baricitinib. patient remains in intensive care intubated on mechanical ventilator at FiO2 60 percent PEEP respiratory rate of 30 tidal volume 450. Continues to maintain saturations between 94-95% on the current settings. Vitals otherwise stable labs reviewed today WBC is 9.5 hemoglobin 12.4 d-dimer is elevated at 4.98. ABG obtained today suggest pH of 7.4 pO2 53 bicarb 26 on 50% FiO2. Creatinine stable at 0.78 glucose is maintained between 145-190. LDH 1564 CRP is elevated at 4. Patient's inflammatory markers trending down. Patient's vent settings increased to 80% for inadequate oxygenation. Chest x-ray reviewed showed bilateral infiltrate consistent with coronavirus associated pneumonia. Patient continues intubated on propofol 70 bike but patient examined Nimbex 1.25 g daily per minute. Patient to receive 1 dose of Lasix today. Continue to remain on baricitinib day 2 PAtient remains intubaated since . patient continues too remain on assist control, TV 450 , peep 15 and fio2 of 60 %. patient was proned for 16 hours yesterday. CXR was reviewed, COVID pneumonia but no significant change was noted, Will repeat inflammatory markers tomorrow. Vent managment per senior hardware engineer. Patient contines to remain propofol , nimbex. Continue on lovenox, baricitinib, dexamethasone and vit supplement 01/18 patient continues to remain intubated. Covid pneumonia. Is currently on assist control respiratory rate of 30 tidal volume 450 FiO2 of 55% and PEEP of 15. She is currently on heparin drip, propofol and Nimbex. Patient continues to tolerate prone positioning 16 hours overnight. Continues to receive dexamethasone, vitamin supplement, anticoagulation with heparin, baricitinib. Labs are reviewed patient has a hemoglobin stable at 12.2. This morning pH 7.48 PCO2 44 bicarb 32 creatinine 0.73 AST 100 chest x-ray done this morning suggestive of ARDS and pneumonia 01/19 patient continues to remain intubated currently on assist-control vent with a rate of 30 tidal volume 450 FiO2 50 and PEEP of 15. Continues to remain on propofol and Nimbex. Continue heparin drip for anticoagulation. Remains on Baricitinib , vitamin supplementation and dexamethasone. Labs reviewed hemoglobin stable at 12 PTT 53 blood gas obtained today suggest a pH of 7.45 pCO2 46 pO2 69 bicarb 32 BUN 23 creatinine 0.0.8 glucose 122 AST ED ALT 226. inflammation markers ordered for tomorrow last set was obtained on 01/12 01/20 Intubated. Vitals reviewed patient's afebrile pulse of 68 respiratory rate 30 blood pressure. 94/56 oxygen 91% on 50% FiO2. Patient remains on assist control, tidal volume 450 respiratory rate 30 FiO2 of 50% and PEEP of 15. He is currently on Pneumovax at 3 mics per KG per minute propofol at 50 Micro-K to Coumadin and heparin drip. Patient labs are reviewed hemoglobin is 11.7. Arterial blood gas at 50% FiO2 has a pH of 7.47 pO2 of 77 bicarb of 31 BUN 24 creatinine 0.7 LDH [id number] CRP 8.70. CRP is slightly elevated with improvement in LDH. Continue to monitor patient with the goal with treatment on heparin, as dexamethasone, vitamin supplementation and Baricitinib . Blood sugar are well controlled. 01/21: Patient remains intubated and on mechanical ventilation with tidal volume 400, FiO2 40 and PEEP of 16. Patient is on propofol and fentanyl drips. He is on tube feedings to be increased to 26 ML's per hour and tolerating. She he has had 100 250 ML's of urine output per hour. He has been afebrile, heart rate 70, respiratory rate 30, blood pressure 115/64, pulse ox 93%. Repeat blood work reveals WBC 7.4, hemoglobin 12, platelet count 310. D-dimer 1.23. Sodium 134, BUN 24 and creatinine 0.73. Blood sugars are running between 101 and 164. AST 105, ALT 261, alkaline phosphatase 135. LDH 999. C-reactive protein 13.5. Albumin 2.9. Gallbladder ultrasound reveals nonspecific pattern of liver can be seen with hepatic steatitis or hepatocellular disease including hepatitis. The chest x-ray reveals bilateral patchy airspace disease stable. 01/22: Remains in the intensive care unit intubated and on mechanical ventilation with tidal volume 400, FiO2 40, PEEP of 13. Paralytics for pause this morning and patient had significant drop in his pulse ox. He is currently on propofol, fentanyl and Nimbex. He has been afebrile, heart rate 73, blood pressure 99/63, pulse ox 90%. Repeat blood work reveals hemoglobin 11.6. Creatinine 0.81. Blood sugars are running between 98 and 155. AST 85, ALT 260, alkaline phosphatase 132. LDH 954, C-reactive protein 6.8. Repeat chest x-ray reveals bilateral patchy diffuse airspace disease stable. Patient is continued on Baricitinib, Lovenox 40 mg subcu daily, dexamethasone 6 mg IV push and vitamin supplements 01/23: Remains in the intensive care unit on mechanical ventilation with tidal volume 400, FiO2 40 and PEEP of 10. Patient is scheduled for trach and PEG tube placement today. He is currently on propofol, fentanyl and Nimbex. Patient remains afebrile, heart rate 69, respiratory rate 30, blood pressure 120/76, pulse ox 93%. Repeat blood work reveals creatinine is 0.71. WBC 8.3, hemoglobin 12.9. AST 111, ALT 328, alkaline phosphatase 153. Blood sugars have been running between 92 and 193. Sputum culture is showing Corynebacterium species from 01/21 and Aspergillus from 01/14. Repeat chest x-ray reveals bilateral patchy diffuse airspace disease stable. Patient is continued on Baricitinib, Lovenox 40 mg subcu daily, dexamethasone 6 mg IV push and vitamin supplements 01/24: Patient is status post trach and PEG tube done yesterday by Dr. Olivares. Patient is off Nimbex and he has his eyes open but not following commands. Patient's is planning to come in today to see him. He remains on ventilator with tidal volume 300, FiO2 50 and PEEP of 10. Repeat chest x-ray reveals diffuse bilateral infiltrate stable. Antibiotics have been changed to ce fepime and patient started on IV Voriconazole. Patient is continued on dexamethasone, Lovenox and vitamin supplements. WBC 17.2, hemoglobin 12.3. Sodium 130, BUN 21 creatinine 0.83. Total bilirubin 2, AST 54, ALT 248, alkaline phosphatase 132. Capillary blood glucose running between 80 and 193. 01/25: Patient remains in the intensive care unit on mechanical ventilation with tidal volume 400, FiO2 is been increased to 100 and PEEP of 12. Patient is currently on propofol, and was started on vasopressors yesterday and is status post 2 L of IV fluid. Temperature max 101.3. Pulse 87, respiratory rate 33, blood pressure 120/57, pulse ox 95%. 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 Repeat blood work reveals WBC 8.3, hemoglobin 11. Sodium 136, chloride 108. Creatinine is 0.83. Calcium 7.9. Total bilirubin 2.7, AST 64, ALT 171, alkaline phosphatase 127. LDH 1187. C-reactive protein 32.6. Blood sugars are running between 133 and 173. Urine culture is showing gram-negative bacilli. Blood culture from 01/24 showing no growth at 24 hours. Repeat chest x-ray reveals clear to megaly with bilateral confluent mid to lower lung opacities consistent with: 19 infection redemonstrated. No significant change. Patient is currently on cefepime, Zyvox and there, so for worsening bilateral pulmonary infiltrate, pneumonia. 01/26: Patient remains in intensive care unit on mechanical ventilation with tidal volume 450, FiO2 80 and PEEP of 12. He has been afebrile for greater than 24 hours. Heart rate 80, blood pressure 132/70, pulse ox 86%. He does have leaking around the tracheostomy site. Repeat blood work reveals WBC 8, hemoglobin 11.1, platelet count 291. Sodium 135, potassium 5.8, creatinine 1.15. Total bilirubin 1.8, AST 101, ALT 194, alkaline phosphatase 135. LDH 1156. C-reactive protein 35.7. Blood sugars are running between 154 and 183. Patient will be started on Levemir 10 units at bedtime. He is continued on cefepime, Zyvox and voriconazole. 01/27: Patient remains intubated and on mechanical ventilation with tidal volume 400 50, FiO2 60, PEEP of 12. Plan is to try and wean oxygen down today. Tracheostomy tube has been manipulated and repositioned. He is not requiring vasopressors, currently on propofol. Chest x-ray reveals no significant interval change. Patient has had good urine output with BUN of 37 creatinine 1.28. Other lab work reveals WBC 9.8, hemoglobin 10.7. D-dimer 5.45. Total bilirubin 1.4, AST 153, ALT 282, alkaline phosphatase 138, LDH 1073. C-reactive protein 16.3. ProCalcitonin 10.1. 01/28: Remains in the intensive care unit, intubated and on mechanical ventilation with tidal volume 450, FiO2 of 60 and PEEP of 10. Patient is responsive, follows a few simple commands. He is currently on antibiotics in the form of cefepime, Zyvox and voriconazole. Patient is also continued on Decadron and Lovenox. Repeat blood work reveals WBC of 10, hemoglobin 10.5. D- dimer 5.63. C-reactive protein 6.2. LDH 1025. Total bilirubin 1.3, AST 95, ALT 250. Patient is on tube feedings at goal. He has had good urine output. Social work will start process for discharge to select specialty with anticipation of him being ready by the end of the week. 01/29 patient is currently in the ICU on with tracheostomy with tidal volume 450 FiO2 decreased to 55 this morning with PEEP of 10. Patient is responsive get agitated once propofol is discontinued. Patient is getting of diarrheal ordered every few hours to help with pain control. Currently stays on antibiotic in the form of cefepime, Zyvox and voriconazole. Urine output is appropriate in her on 75 200 mL per hour. Continues to remain on Decadron and Lovenox. He's currentl y off norepinephrine off Precedex is off fentanyl. Chest x-ray reviewed has bilateral interstitial infiltrate not changed. Labs reviewed, WBC 11.1 hemoglobin is 11.4 R blood gas this morning on 60% FiO2 suggest EF pO2 of 65 bicarb 26 blood sugar controlled ranging from 156-197. Ventilator management per pulmonary as reduce the FiO2 to 55 . Repeat blood gas in 24 hours. Patient initiating Seroquel 50 twice a day for agitation. Discussion with the nurse was made to reduce the Seroquel to 25 twice a day if patient appears to be sedated 01/30: Patient remains in intensive care unit, intubated status post tracheostomy and PEG tube placement. He is on tidal volume 450, FiO2 of 50 and PEEP is down to 10. He is able to follow some simple commands. Pulmonary medicine is planning to discontinue propofol and switched to Precedex. He is on tube feedings. Social work is following for possible discharge to [facility] by the end of the week. 01/31: Patient remains in the intensive care unit intubated and on mechanical ventilation status post PEG tube and trach. Tidal volume 450, FiO2 50 and PEEP of 10. Patient is on propofol. He is on PEG tube feedings at goal. Patient is continued on Lovenox, Decadron, supplements. Cefepime has been discontinued and he is continued on Zyvox and 4, his old. Social work is following closely for discharge planning however at this time, there are no facilities that will accept the patient. 02/01: Patient is out of Covid isolation. Patient remains on mechanical ventilation with tidal volume 450, FiO2 50, PEEP of 10. Patient is on propofol which is to be weaned off today. He still has Sim catheter with good urine output. Feedings are at goal. Patient has occasional cough, mild edema. Patient is refusing IV Dilaudid for pain. Bowel movements been soft but no diarrhea. Patient is afebrile, heart rate 68, respiratory rate 24, blood pressure 130/75, pulse ox 92%. 02/02: Patient is seen in ICU he is currently out of Covid isolation. Remains on mechanical ventilation with trach. Tidal volume 450, rate of 22 with a PEEP of 8 FiO2 of 50%. Patient is currently on propofol which will continue to be weaned today with the addition of Ativan. Sim catheter in place with good urine output. Feedings are at goal. Does have occasional cough, mild edema. 02/03: Patient is seen in ICU remains on mechanical ventilation with trach. Tidal volume 450 rate of 22 with a PEEP of 6 FiO2 of 45%. Patient is off of propofol. Discussion for transitioned to CPAP machine for today. Sim catheter in place with good urine output. Feedings are at goal. Patient does have occasional cough continues have mild edema. Patient is able to follow commands bilateral upper extremity strength equal. 02/04: Patient remains in the intensive care unit. He is currently on trach collar at 40% FiO2 with pulse ox of 97%. He is afebrile, heart rate in the 50s to 80s, blood pressure 105/69. Repeat blood work reveals WBC 9.9, hemoglobin 11.1, platelet count 230. Sodium 135, potassium 4.3, chloride 101, CO2 29, BUN 40 creatinine 0.96. Blood sugars are running between 125 and 211. Repeat chest x-ray reveals findings consistent with Covid pneumonia consider ARDS. Patient is now slowly progressing and his goal is to get home by [place]. 02/05: Patient remains in the intensive care unit. He is on trach collar at 40% FiO2 with pulse ox of 87 and 95%. Blood pressure 103/66, heart rate in the 50s and 60s, afebrile. Patient is able to mouth words and cough is better today. He is needing to be suctioned for secretions. He is nothing by mouth and on peg tube feedings at goal. Repeat blood work reveals hemoglobin 11.7, WBC 11.2. Sodium 136, potassium 5, chloride 99, CO2 32, BUN 38 and creatinine 1. Blood sugars are running between 125-197. Repeat chest x-ray consistent with history of pneumonia. Patient may move out of the ICU tomorrow. 02/06: A remains in the intensive care unit. His daughter is at the bedside. He has been downgraded to [facility] with telemetry and waiting for bed. He underwent barium swallow today and found no aspiration or penetration. Speech therapy has recommended regular diet with thin liquids. His secretions are much less and he is coughing less. He has been afebrile, heart rate in the 70s, blood pressure 103/59, pulse ox 9094% on 40% trach collar. Blood sugars are running between 123 and 165. 02/07: Patient is today on the cardiac stepdown unit. He is on trach collar at 80% FiO2 with pulse ox of 91%. He has been afebrile, heart rate 107, blood pressure 101/67. Patient a 25% of lunch and supper yesterday, he is enjoying being able to eat. He remains on PEG tube feedings as well . The patient has been approved for Medicaid and social work will discuss option of ECF with family. We will add in a consult for Dr. Nuñez for inpatient rehab. 02/08: Patient has been seen by Dr. Nuñez for possible inpatient rehab with goal of discharge on Thursday. Patient developed a fever 102 this morning at 4 AM, heart rate 101, blood pressure 97/64. Pulse ox is percent on 80% trach collar. Capillary blood glucose running between 114 and 209. We have ordered stat blood culture. Patient is on PEG tube feedings and oral diet. Repeat blood work reveals WBC 18.7, hemoglobin 12, platelet count 244. Electrolytes are normal. BUN 34 creatinine 1.02. Blood sugar 151. /18: Patient is doing okay, and the medical floor, still on trach at 80%, patient's 18 on his own unsupervised, has rhonchi on breathing, PEG tube infusing VITAL 1.2, at 50 mL an an hour, on top of oral supplementation and sugar, twice a day. Patient is swallowing meds, any difficulty, is at bedside, updated regarding plans for possible inpatient rehab, still needs to be determined. 02/10: Patient is seen sitting up in bed, trying to expectorate mucus, has a hard time expectorating this time, thick tenacious mucus, requesting to have deep suctioning. is at bedside, no new fever no chills, still on trach 80%, no aspiration, PEG tube infusing at 50 mL an hour as previous, anticipated rehab, on Thursday to be determined whether's inpatient [place] subacute 02/11: Patient is seen today on the cardiac stepdown unit, patient's is at bedside. Patient is complaining of a backache. Patient is state that the discharge plan has changed and they are looking at having the trach removed and also having the PEG tube removed prior to discharge. PEG tube feedings are b eing weaned. 02/12: Patient was denied at [facility] for inpatient rehab as he was doing too well. Patient would also not qualify then for subacute rehab. Patient is not stable at this point to go home due to oxygenation needs. Patient will need to be down to 5 or 6 L in order to go home safely. He is weaned off PEG tube feedings. Has been afebrile, heart rate 95, blood pressure 101/66, pulse ox 94% on trach collar 10 L at 60% FiO2. Plan to wean patient down on oxygen therapy. Removal of PEG tube per general surgery. Repeat chest x-ray reveals stable diffuse bilateral infiltrates. REVIEW OF SYSTEMS. Constitutional: Noted fever, no chills, no night sweats. No weight change. Reports weakness, reports fatigue or lethargy. No daytime sleepiness. EENT: No headache. No blurred vision or double vision, no loss of vision. No loss of Hearing, no ringing in the ears, no dizziness. No nasal drainage or congestion. No epistaxis. No sore throat. Lungs: No shortness of breath, noted occasional cough, noted sputum production, proving. No wheezing. Cardiovascular: No chest pain, no lower extremity edema. No palpitations. No paroxysmal nocturnal dyspnea. No orthopnea. No lightheadedness or dizziness. No syncopal episodes. Abdominal: no abdominal discomfort. No nausea, vomiting. no diarrhea. No constipation. No bloody or tarry stools. no loss of appetite. Genitourinary: No dysuria, increased frequency, urgency. No urinary retention. Musculoskeletal: No myalgias. No muscle weakness, no gait dysfunction, no frequent falls. No back pain. No neck pain. Integumentary: No wounds, no lesions. No rash or pruritus. No unusual bruising. No change in hair or nails. Neurologic: No aphasia. No facial droop. No change in mentation. No head injury. No headache. No paralysis. No paresthesia. Psychiatric: No depression. No anxiety. No mood swings. Endocrine: No abnormal blood sugars. No weight change. PHYSICAL EXAMINATION Gen: This is a 55-year-old male. He is resting in bed, on trach collar at 60% FiO2, status post trach and PEG. HEENT: Head is atraumatic, normocephalic. Pupils equal, round. Sclerae is anicteric. Tracheostomy intact. NECK: Supple. No JVD. No lymphadenopathy. LUNGS: Crackles bilaterally. No accessory muscle usage. No intercostal retractions. HEART: Regular rate and rhythm. No murmur. ABDOMEN: Soft. Bowel sounds are present. No masses. No tenderness. PEG tube in place. EXTREMITIES: No pedal edema. No calf tenderness. NEUROLOGICAL: Patient is awake, alert and oriented 3, and able to follow comman ds and answer questions appropriately. ASSESSMENT AND PLAN 1. Acute hypoxic respiratory failure secondary to Covid 19 pneumonia and possible secondary pneumonia, gram-negative and fungal. Patient required intubation 01/14. Patient is status post trach and PEG tube placement 01/[address] Olivares. Patient started on January 12/2021 on baricinib 4 mg daily, discontinued on 01/24. Continue dexamethasone decreased to 4 mg IV daily, Lovenox 40 mg subcu daily, and vitamin supplements. 2. Acute respiratory distress syndrome secondary to coronavirus pneumonia. 3. Acute septic shock requiring vasopressors. Patient is status post IV fluid bolus and off vasopressors. 4. History of bilateral pulmonary emboli and DVT in 2015. CTA negative for PE. Not on chronic anticoagulation. 5. Acute transaminitis secondary to Covid 19. 6. Generalized osteoarthritis. 7. Degenerative changes in the cervical spine status post fusion of C5-6. 8. 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 9. Elevated liver function tests, transaminitis. 10. Hyperglycemia secondary to steroids. Patient is on NovoLog scale, Levemir 10 units at bedtime added. 11. Severe hyperkalemia, resolved. 12. GI prophylaxis. Protonix. 13. DVT prophylaxis. Lovenox. 14. Acute agitation on ventilator.Seroquel to 100 mg twice daily by senior hardware engineer. 15. Moderate protein calorie malnutrition requiring PEG tube. Patient's diet advanced to regular with thin liquids by mouth, continue PEG tube feedings until oral diet is sufficient. DISCHARGE PLAN HOME WITH HOME CARE once stabilized on oxygen therapy Impression and plan of care have been directed as dictated by the signing physician. Shakila Mosqueda nurse practitioner acting as scribe for signing physician. Objective - Vital Signs Vital signs: Vital Signs Temp 98.3 F 02/12/21 08:00 Pulse 84 02/12/21 08:00 Resp 16 02/12/21 08:00 BP 107/65 02/12/21 04:00 Pulse Ox 97 02/12/21 08:00 Intake & Output 02/11/21 02/12/21 02/12/21 18:59 06:59 18:59 Intake Total 20 20 128 Output Total 201 500 Balance -181 20 -372 Weight 94.5 kg Intake: IV 20 20 10 Invasive Line 8 20 20 10 Oral 118 Output: Urine 200 500 Urine/Stool Mix 1 Other: Voiding Method Urinal Urinal Urinal # Voids 1 2 ABP, PAP, CO, CI - Last Documented Arterial Blood Pressure 118/93 - Labs CBC & Chem 7: 02/08/21 08:50 02/08/21 08:50 Labs: Abnormal Lab Results - Last 24 Hours (Table) 02/11/21 02/11/21 02/11/21 Range/Units 11:53 13:45 16:58 POC Glucose (mg/dL) 272 H 178 H (75-99) mg/dL Procalcitonin 0.35 H (0.02-0.09) ng/mL 02/12/21 02/12/21 Range/Units 00:03 06:31 POC Glucose (mg/dL) 130 H 121 H (75-99) mg/dL Procalcitonin (0.02-0.09) ng/mL Microbiology - Last 24 Hours (Table) 02/11/21 14:24 Gram Stain - Preliminary Gastric Aspirate Sputum Culture - Preliminary 02/08/21 08:50 Blood Culture - Preliminary Blood No Growth after 72 hours
[2021-02-12 16:50] LABS: Glucose,Whole Blood 130 mg/dL (75-99)
[2021-02-12 20:11] LABS: Glucose,Whole Blood 110 mg/dL (75-99)
[2021-02-12] MEDS: INSULIN DETEMIR (LEVEMIR) 100 UNIT/ML SYR SQ SCH (20:15)
[2021-02-12] MEDS: HYDROmorphone 1 MG/ML 1 ML SYRINGE IVP PRN (20:17)
[2021-02-13] MEDS: INSULIN ASPART (NovoLOG) 100 UNIT/ML VIAL SQ SCH ×4 (00:42→17:49)
[2021-02-13 06:18] LABS: Glucose,Whole Blood 107 mg/dL (75-99)
[2021-02-13] MEDS: QUEtiapine 100 MG TAB PO SCH ×2 (08:49→21:45)
[2021-02-13] MEDS: ASCORBIC ACID 500 MG TAB PO SCH (08:49)
[2021-02-13] MEDS: CHOLECALCIFEROL 25 MCG (1000 IU) TABLET PO SCH (08:49)
[2021-02-13] MEDS: ZINC SULFATE 220 MG CAP PO SCH (08:49)
[2021-02-13] MEDS: guaiFENesin 600 MG TABLET.ER PO SCH ×2 (08:49→21:45)
[2021-02-13] MEDS: PANTOPRAZOLE 40 MG/10 ML VIAL IVP SCH (08:49)
[2021-02-13] MEDS: ENOXAPARIN 40 MG/0.4 ML SYRINGE SQ SCH (08:50)
[2021-02-13] MEDS: DEXAMETHASONE SOD PHOSPHATE 10 MG/ML 1 ML VIAL IVP SCH (08:50)
[2021-02-13 11:44] LABS: Glucose,Whole Blood 178 mg/dL (75-99)
[2021-02-13] MEDS ORDERED: HYDROmorphone 1 MG/ML 1 ML SYRINGE IVP PRN (12:42)
--- NOTE | 2021-02-13 13:57 | P.PN ---
Subjective Progress Note Date: 02/13/21 On today's evaluation of 02/11/2021, the patient is on a trach collar and his resting comfortably on the recliner. The patient is currently on a trach collar with an FiO2 of 80%. His pulse ox is currently around 94-95%. He is producing some respiratory secretions which I made recommendations to culture and collect. Meanwhile, the chest x-ray that was done yesterday showed diffuse cardio pulmonary processes with interval worsening of the findings on the left lung, probably development of some further consolidation versus effusion. Based on that, the patient was given additional dose of Lasix. For now, the patient is calm and comfortable. According to him is having full meal and the patient is still on enteral feeding for nutritional support through a PEG tube. I think it's reasonable to stop enteral feeding for now. This will also put the patient had a risk of aspiration. Meanwhile, we'll continue the Decadron 4 mg on a daily basis. The patient on Levemir insulin 10 units at bedtime along with NovoLog status Coverage. The patient is on Lovenox 40 mg subcu for DVT prophylaxis. 02/12/2021, the patient is being seen for a follow-up. The patient is doing well. No significant complaints. The patient is on a trach collar with an FiO2 of 60%. The patient was requiring a month decannulation. I do not think he is ready for decannulation yet. The chest x-ray still showing diffuse bilateral pulmonary infiltrates and this is a consultation with previous COVID 19 infection. The patient also was having significant respiratory secretions. Cultures were sent and is also still pending for now. Noted yesterday, discontinue the TPN and I start the patient on oral intake and the patient seems to be eating well and he is meeting his caloric requirements. He remains on Decadron 4 mg IV creatinine is 24 hours. He remains on Lovenox 40 mg subcu on a daily basis. He has no other complaints otherwise. He remains on IV Protonix. He is taking Seroquel 100 mg by mouth twice a day. No altered mentation. He is weak although on a daily basis his strength is improving. His blood sugar control is good Levemir 10 units along with a NovoLog sized screw coverage. 02/13/2021, the patient is awake and alert and the patient is currently on 50% trach collar. As noted earlier, the patient was having significant amount of secretions through his tracheostomy stoma. The patient was bringing up yellowish to greenish mucus that was also smelling. Based on that, cultures were sent and the results came back positive for pseudomonas aeruginosa. Noted the patient continues to have diffuse bilateral pulmonary infiltrates. Based on all this, and based on his very borderline respiratory status, and which starts patient IV cefepime is a antibiotic coverage for now. He is afebrile. He is hemodynamically stable. Pro-calcitonin level will be rechecked. Meanwhile, the patient is taking oral intake. Activity is not being utilized for now. He is calm and comfortable. He remains on Lovenox 40 mg subcu for DVT prophylaxis. He remains on Levemir insulin 10 units along with ascites care coverage. No other significant events. The patient is getting progressively stronger. He does have a PICC line right upper extremity that may facilitate outpatient antibiotic therapy if decision is to made to send this patient home. The patient is fenestrated #8 tracheostomy tube and is able to talk around the tube. Objective - Vital Signs Vital signs: Vital Signs Temp 98.2 F 02/13/21 08:00 Pulse 77 02/13/21 12:00 Resp 16 02/13/21 12:00 BP 115/75 02/13/21 12:00 Pulse Ox 90 L 02/13/21 12:00 Intake & Output 02/12/21 02/13/21 02/13/21 18:59 06:59 18:59 Intake Total 378 20 138 Output Total 1250 325 Balance -872 -305 138 Intake: IV 20 20 20 Invasive Line 8 20 20 20 Oral 358 118 Output: Urine 1250 325 Other: Voiding Method Urinal Urinal Urinal # Voids 2 ABP, PAP, CO, CI - Last Documented Arterial Blood Pressure 118/93 - Exam No acute distress, oriented 3, sitting at the bedside, on a trach collar. Saturations are 94%. The patient is currently on 50% percent trach collar. The patient a #8 fenestrated Shiley tracheostomy tube HEENT examination is grossly unremarkable. Neck supple. Full range of motion. No adenopathy thyromegaly or neck vein distention. Midline tracheostomy tube noted in good position. Cardiovascular examination reveals regular rhythm rate. S1-S2 normal. No S3 or S4. No discernible murmur noted. Heart sounds are distant. Heart rate 80 bpm. Lungs reveal guarded bilateral rhonchi. Breath sounds equal bilaterally. No wheezes or crackles. Saturations are 94%. Abdomen soft bowel sounds are heard. No masses or tenderness. PEG tube noted. Extremities are intact. No cyanosis clubbing or edema. Skin is without rash or lesion. Neurologic examination is brief but nonfocal. - Labs CBC & Chem 7: 02/08/21 08:50 02/08/21 08:50 Labs: Abnormal Lab Results - Last 24 Hours (Table) 02/12/21 02/12/21 02/13/21 Range/Units 16:36 20:08 06:17 POC Glucose (mg/dL) 130 H 110 H 107 H (75-99) mg/dL 02/13/21 Range/Units 11:34 POC Glucose (mg/dL) 178 H (75-99) mg/dL Microbiology - Last 24 Hours (Table) 02/08/21 08:50 Blood Culture - Preliminary Blood No Growth after 120 hours 02/11/21 14:24 Gram Stain - Final Gastric Aspirate Sputum Culture - Final Pseudomonas aeruginosa Assessment and Plan Plan: 1 Acute hypoxemic respiratory failure secondary to coronavirus associated pneumonia, with intubation and mechanical ventilation, initiated on January 14, for worsening hypoxemia. Noted the patient was initially on nasal cannula oxy gen supplementation and following that the patient required BiPAP and ultimately the patient to be intubated on 01/14/2021 for respiratory failure secondary to COVID-19 related to pneumonia. Patient is currently on a combination of Decadron and Baricitinib per protocol. The patient is post tracheostomy tube insertion and suggested was inserted on 01/23/2021. The patient was subsequently weaned off the mechanical ventilator and the patient is currently on 60% trach collar. Most recent chest x-ray from 02/20/2021 showed some interval worsening lower lobe consolidation and possibly development of some effusion. Patient is afebrile. No sinus of any respiratory difficulties for now. I repeated the chest x-ray today on 02/12/2021 and the patient continues to have stable bilateral pulmonary infiltrates. The patient was having excessive rest or secretions. Based on that, a repeat sputum analysis was done and showed positive pseudomonas aeruginosa. He'll be started on IV cefepime. 2 Acute respiratory distress syndrome (ARDS), secondary to coronavirus associated pneumonia. 3 Previous history of bilateral pulmonary emboli, and left leg DVT, 2016, currently on Lovenox. 4 History of osteoarthritis. 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 This was likely a colonizer. 6 Liver function tests are mildly elevated as the patient has a mild component of transaminitis, rest of the inflammatory markers are essentially improving including LDH, LFTs are improving and the patient will be started on voriconazole and LFTs are being monitored very closely 7. Acute sepsis with hypotension probably related to respiratory infection/pneumonia, recovered 8 acute kidney injury, recovered Plan: Keep the patient on trach collar at 50% trach collar Patient has a #8 fenestrated Shiley tracheostomy tube. Patient has a PICC line in the right upper extremity and would like to start him on IV cefepime Monitor pro-calcitonin level Repeat chest x-ray in the morning was noted and the patient have persistent bilateral pulmonary infiltrates Patient is tolerating oral intake and activity has been discontinued Continue Decadron Continue Levemir insulin Not ready for decannulation this point in time Continue physical therapy We'll continue to follow
--- NOTE | 2021-02-13 14:08 | P.PN ---
Subjective Progress Note Date: 02/13/21 HISTORY OF PRESENT ILLNESS This is a 55-year-old male patient of Dr. Palm with past medical history of bilateral pulmonary emboli and left leg DVT in 2016, osteoarthritis, degenerative changes in the cervical spine status post fusion of C5-6. Patient states he has not been feeling well since Thursday. He said shortness of breath cough is nonproductive along with fever and chills, exertional dyspnea. He denies having any nausea vomiting or diarrhea. He denies any close contacts to known Covid people. He states his temperature is been up to 102.7 at home. He is not vaccinated. Patient presented to [facility] emergency center and found to be febrile at 101.1, heart rate 90, blood pressure 122/80, pulse ox 85% on room air. CBC revealed platelet count of 128. D-dimer 0.82. Sodium 131 otherwise electrolytes and renal function were normal. Blood sugar 147. Troponin negative. Coronavirus PCR positive. Chest x-ray reveals patchy bilateral airspace disease especially in the mid and lower lungs. Correlate for multifocal pneumonia including Covid 19 pneumonia. CTA of the chest was suboptimal study without central acute pulmonary embolism. Bilateral multifocal and confluent groundglass opacities right greater than left and greater in the lower lungs consistent with known Covid 19 infection. Patient is seen today in the emergency center waiting for bed on the [facility] floor, started on Remdesivir, Lovenox, dexamethasone and vitamin supplements, consult with pulmonary medicine. 01/12: Patient is comfortable, however he requires 40 L of oxygen via airvo sats 88-89%, he feels better today compared to his nonrebreather mask yesterday, patient did not sleep well, patient does not have any cough, however he does have shortness of breath. Patient denies any aspiration, appetite is still marginal, patient has insomnia vitals, blood sugar currently is 243, creatinine of 0.98, d-dimer is 0.84, CRP is elevated, LDH is elevated, venous Doppler, shows chronic DVT, left popliteal, in the posterior tibial veins, without any obstruction of flow. No acute DVT identified CTA, shows suboptimal, without central acute pulmonary emboli, has bilateral multifocal and confluent groundglass opacities, right greater than left, lower lobe, consistent with COVID-19 infection and remdesivir discontinued by pulmonary today and is outside of the window for remdesivir 01/13: Patient is on aerosol 14 L, with nonrebreather mask, 15 L, hypoxemia noted on 88%, worse with coughing, however his nonrebreather mask is very loose. Nurse is worriedwith the turn of events, and requested an ICU transfer, Dr. Canales has seen the patient, and is stable for floor management at this time, patient is not significant tachypnea, and is not tiring out. There is no hemoptysis, and mucus is productive, patient's doing incentive spirometry, up 2 L. 01/14: Patient remains in the intensive care unit, he was intubated this morning as he was desaturating with BiPAP. He has been afebrile, heart rate 73, blood pressure 93/47, pulse ox 90%. CBC is unremarkable. D-dimer 12.04. Sodium 135, creatinine 0.82. LDH 2929, C-reactive protein 5.2. Sputum culture is in progress. He has had good urine output. Chest x-ray reveals no evident convocation from catheters. Bilateral airspace disease. 01/15: Patient remains in the intensive care intubated and on mechanical ventilation with tidal volume 450, FiO2 80, PEEP of 15. Patient has been started on norepinephrine and remains on propofol, heparin drip, Nimbex. Repeat blood work revealed unremarkable CBC. Creatinine 0.88. Capillary blood glucose running between 195 and 215. AST 126, ALT 183, alkaline phosphatase 109. Sputum culture is in progress. Repeat chest x-ray reveals correlate for pneumonia versus edema, ARDS. Patient is continued on vitamin supplements, heparin drip, dexamethasone and Baricitinib. patient remains in intensive care intubated on mechanical ventilator at FiO2 60 percent PEEP respiratory rate of 30 tidal volume 450. Continues to maintain saturations between 94-95% on the current settings. Vitals otherwise stable labs reviewed today WBC is 9.5 hemoglobin 12.4 d-dimer is elevated at 4.98. ABG obtained today suggest pH of 7.4 pO2 53 bicarb 26 on 50% FiO2. Creatinine stable at 0.78 glucose is maintained between 145-190. LDH 1564 CRP is elevated at 4. Patient's inflammatory markers trending down. Patient's vent settings increased to 80% for inadequate oxygenation. Chest x-ray reviewed showed bilateral infiltrate consistent with coronavirus associated pneumonia. Patient continues intubated on propofol 70 bike but patient examined Nimbex 1.25 g daily per minute. Patient to receive 1 dose of Lasix today. Continue to remain on baricitinib day 2 PAtient remains intubaated since . patient continues too remain on assist control, TV 450 , peep 15 and fio2 of 60 %. patient was proned for 16 hours yesterday. CXR was reviewed, COVID pneumonia but no significant change was noted, Will repeat inflammatory markers tomorrow. Vent managment per metal container maker . Patient contines to remain propofol , nimbex. Continue on lovenox, baricitinib, dexamethasone and vit supplement 01/18 patient continues to remain intubated. Covid pneumonia. Is currently on assist control respiratory rate of 30 tidal volume 450 FiO2 of 55% and PEEP of 15. She is currently on heparin drip, propofol and Nimbex. Patient continues to tolerate prone positioning 16 hours overnight. Continues to receive dexamethasone, vitamin supplement, anticoagulation with heparin, baricitinib. Labs are reviewed patient has a hemoglobin stable at 12.2. This morning pH 7.48 PCO2 44 bicarb 32 creatinine 0.73 AST 100 chest x-ray done this morning suggestive of ARDS and pneumonia 01/19 patient continues to remain intubated currently on assist-control vent with a rate of 30 tidal volume 450 FiO2 50 and PEEP of 15. Continues to remain on propofol and Nimbex. Continue heparin drip for anticoagulation. Remains on Baricitinib , vitamin supplementation and dexamethasone. Labs reviewed hemoglobin stable at 12 PTT 53 blood gas obtained today suggest a pH of 7.45 pCO2 46 pO2 69 bicarb 32 BUN 23 creatinine 0.0.8 glucose 122 AST ED ALT 226. inflammation markers ordered for tomorrow last set was obtained on 01/12 01/20 Intubated. Vitals reviewed patient's afebrile pulse of 68 respiratory rate 30 blood pressure. 94/56 oxygen 91% on 50% FiO2. Patient remains on assist control, tidal volume 450 respiratory rate 30 FiO2 of 50% and PEEP of 15. He is currently on Pneumovax at 3 mics per KG per minute propofol at 50 Micro-K to Coumadin and heparin drip. Patient labs are reviewed hemoglobin is 11.7. Arterial blood gas at 50% FiO2 has a pH of 7.47 pO2 of 77 bicarb of 31 BUN 24 creatinine 0.7 LDH [id number] CRP 8.70. CRP is slightly elevated with improvement in LDH. Continue to monitor patient with the goal with treatment on heparin, as dexamethasone, vitamin supplementation and Baricitinib . Blood sugar are well controlled. 01/21: Patient remains intubated and on mechanical ventilation with tidal volume 400, FiO2 40 and PEEP of 16. Patient is on propofol and fentanyl drips. He is on tube feedings to be increased to 26 ML's per hour and tolerating. She he has had 100 250 ML's of urine output per hour. He has been afebrile, heart rate 70, respiratory rate 30, blood pressure 115/64, pulse ox 93%. Repeat blood work reveals WBC 7.4, hemoglobin 12, platelet count 310. D-dimer 1.23. Sodium 134, BUN 24 and creatinine 0.73. Blood sugars are running between 101 and 164. AST 105, ALT 261, alkaline phosphatase 135. LDH 999. C-reactive protein 13.5. Albumin 2.9. Gallbladder ultrasound reveals nonspecific pattern of liver can be seen with hepatic steatitis or hepatocellular disease including hepatitis. The chest x-ray reveals bilateral patchy airspace disease stable. 01/22: Remains in the intensive care unit intubated and on mechanical ventilation with tidal volume 400, FiO2 40, PEEP of 13. Paralytics for pause this morning and patient had significant drop in his pulse ox. He is currently on propofol, fentanyl and Nimbex. He has been afebrile, heart rate 73, blood pressure 99/63, pulse ox 90%. Repeat blood work reveals hemoglobin 11.6. Creat inine 0.81. Blood sugars are running between 98 and 155. AST 85, ALT 260, alkaline phosphatase 132. LDH 954, C-reactive protein 6.8. Repeat chest x-ray reveals bilateral patchy diffuse airspace disease stable. Patient is continued on Baricitinib, Lovenox 40 mg subcu daily, dexamethasone 6 mg IV push and vitamin supplements 01/23: Remains in the intensive care unit on mechanical ventilation with tidal volume 400, FiO2 40 and PEEP of 10. Patient is scheduled for trach and PEG tube placement today. He is currently on propofol, fentanyl and Nimbex. Patient remains afebrile, heart rate 69, respiratory rate 30, blood pressure 120/76, pulse ox 93%. Repeat blood work reveals creatinine is 0.71. WBC 8.3, hemoglobin 12.9. AST 111, ALT 328, alkaline phosphatase 153. Blood sugars have been running between 92 and 193. Sputum culture is showing Corynebacterium species from 01/21 and Aspergillus from 01/14. Repeat chest x-ray reveals bilateral patchy diffuse airspace disease stable. Patient is continued on Baricitinib, Lovenox 40 mg subcu daily, dexamethasone 6 mg IV push and vitamin supplements 01/24: Patient is status post trach and PEG tube done yesterday by Dr. Olivares. Patient is off Nimbex and he has his eyes open but not following commands. Patient's is planning to come in today to see him. He remains on ventilator with tidal volume 300, FiO2 50 and PEEP of 10. Repeat chest x-ray reveals diffuse bilateral infiltrate stable. Antibiotics have been changed to c efepime and patient started on IV Voriconazole. Patient is continued on dexamethasone, Lovenox and vitamin supplements. WBC 17.2, hemoglobin 12.3. Sodium 130, BUN 21 creatinine 0.83. Total bilirubin 2, AST 54, ALT 248, alkaline phosphatase 132. Capillary blood glucose running between 80 and 193. 01/25: Patient remains in the intensive care unit on mechanical ventilation with tidal volume 400, FiO2 is been increased to 100 and PEEP of 12. Patient is currently on propofol, and was started on vasopressors yesterday and is status post 2 L of IV fluid. Temperature max 101.3. Pulse 87, respiratory rate 33, blood pressure 120/57, pulse ox 95%. campus monitor is a sinus rhythm. Repeat blood work reveals WBC 8.3, hemoglobin 11. Sodium 136, chloride 108. Creatinine is 0.83. Calcium 7.9. Total bilirubin 2.7, AST 64, ALT 171, alkaline phosphatase 127. LDH 1187. C-reactive protein 32.6. Blood sugars are running between 133 and 173. Urine culture is showing gram-negative bacilli. Blood culture from 01/24 showing no growth at 24 hours. Repeat chest x-ray reveals clear to megaly with bilateral confluent mid to lower lung opacities consistent with: 19 infection redemonstrated. No significant change. Patient is currently on cefepime, Zyvox and there, so for worsening bilateral pulmonary infiltrate, pneumonia. 01/26: Patient remains in intensive care unit on mechanical ventilation with tidal volume 450, FiO2 80 and PEEP of 12. He has been afebrile for greater than 24 hours. Heart rate 80, blood pressure 132/70, pulse ox 86%. He does have leaking around the tracheostomy site. Repeat blood work reveals WBC 8, hemoglobin 11.1, platelet count 291. Sodium 135, potassium 5.8, creatinine 1.15. Total bilirubin 1.8, AST 101, ALT 194, alkaline phosphatase 135. LDH 1156. C-reactive protein 35.7. Blood sugars are running between 154 and 183. Patient will be started on Levemir 10 units at bedtime. He is continued on cefepime, Zyvox and voriconazole. 01/27: Patient remains intubated and on mechanical ventilation with tidal volume 400 50, FiO2 60, PEEP of 12. Plan is to try and wean oxygen down today. Tracheostomy tube has been manipulated and repositioned. He is not requiring vasopressors, currently on propofol. Chest x-ray reveals no significant interval change. Patient has had good urine output with BUN of 37 creatinine 1.28. Other lab work reveals WBC 9.8, hemoglobin 10.7. D-dimer 5.45. Total bilirubin 1.4, AST 153, ALT 282, alkaline phosphatase 138, LDH 1073. C-reactive protein 16.3. ProCalcitonin 10.1. 01/28: Remains in the intensive care unit, intubated and on mechanical ventilation with tidal volume 450, FiO2 of 60 and PEEP of 10. Patient is responsive, follows a few simple commands. He is currently on antibiotics in the form of cefepime, Zyvox and voriconazole. Patient is also continued on Decadron and Lovenox. Repeat blood work reveals WBC of 10, hemoglobin 10.5. D- dimer 5.63. C-reactive protein 6.2. LDH 1025. Total bilirubin 1.3, AST 95, ALT 250. Patient is on tube feedings at goal. He has had good urine output. Social work will start process for discharge to select specialty with anticipation of him being ready by the end of the week. 01/29 patient is currently in the ICU on with tracheostomy with tidal volume 450 FiO2 decreased to 55 this morning with PEEP of 10. Patient is responsive get agitated once propofol is discontinued. Patient is getting of diarrheal ordered every few hours to help with pain control. Currently stays on antibiotic in the form of cefepime, Zyvox and voriconazole. Urine output is appropriate in her on 75 200 mL per hour. Continues to remain on Decadron and Lovenox. He's current ly off norepinephrine off Precedex is off fentanyl. Chest x-ray reviewed has bilateral interstitial infiltrate not changed. Labs reviewed, WBC 11.1 hemoglobin is 11.4 R blood gas this morning on 60% FiO2 suggest EF pO2 of 65 bicarb 26 blood sugar controlled ranging from 156-197. Ventilator management per pulmonary as reduce the FiO2 to 55 . Repeat blood gas in 24 hours. Patient initiating Seroquel 50 twice a day for agitation. Discussion with the nurse was made to reduce the Seroquel to 25 twice a day if patient appears to be sedated 01/30: Patient remains in intensive care unit, intubated status post tracheostomy and PEG tube placement. He is on tidal volume 450, FiO2 of 50 and PEEP is down to 10. He is able to follow some simple commands. Pulmonary medicine is planning to discontinue propofol and switched to Precedex. He is on tube feedings. Social work is following for possible discharge to [facility] by the end of the week. 01/31: Patient remains in the intensive care unit intubated and on mechanical ventilation status post PEG tube and trach. Tidal volume 450, FiO2 50 and PEEP of 10. Patient is on propofol. He is on PEG tube feedings at goal. Patient is continued on Lovenox, Decadron, supplements. Cefepime has been discontinued and he is continued on Zyvox and 4, his old. Social work is following closely for discharge planning however at this time, there are no facilities that will accept the patient. 02/01: Patient is out of Covid isolation. Patient remains on mechanical ventilation with tidal volume 450, FiO2 50, PEEP of 10. Patient is on propofol which is to be weaned off today. He still has Sim catheter with good urine output. Feedings are at goal. Patient has occasional cough, mild edema. Patient is refusing IV Dilaudid for pain. Bowel movements been soft but no diarrhea. Patient is afebrile, heart rate 68, respiratory rate 24, blood pressure 130/75, pulse ox 92%. 02/02: Patient is seen in ICU he is currently out of Covid isolation. Remains on mechanical ventilation with trach. Tidal volume 450, rate of 22 with a PEEP of 8 FiO2 of 50%. Patient is currently on propofol which will continue to be weaned today with the addition of Ativan. Sim catheter in place with good urine output. Feedings are at goal. Does have occasional cough, mild edema. 02/03: Patient is seen in ICU remains on mechanical ventilation with trach. Tidal volume 450 rate of 22 with a PEEP of 6 FiO2 of 45%. Patient is off of pro pofol. Discussion for transitioned to CPAP machine for today. Sim catheter in place with good urine output. Feedings are at goal. Patient does have occasional cough continues have mild edema. Patient is able to follow commands bilateral upper extremity strength equal. 02/04: Patient remains in the intensive care unit. He is currently on trach collar at 40% FiO2 with pulse ox of 97%. He is afebrile, heart rate in the 50s to 80s, blood pressure 105/69. Repeat blood work reveals WBC 9.9, hemoglobin 11.1, platelet count 230. Sodium 135, potassium 4.3, chloride 101, CO2 29, BUN 40 creatinine 0.96. Blood sugars are running between 125 and 211. Repeat chest x-ray reveals findings consistent with Covid pneumonia consider ARDS. Patient is now slowly progressing and his goal is to get home by [place]. 02/05: Patient remains in the intensive care unit. He is on trach collar at 40% FiO2 with pulse ox of 87 and 95%. Blood pressure 103/66, heart rate in the 50s and 60s, afebrile. Patient is able to mouth words and cough is better today. He is needing to be suctioned for secretions. He is nothing by mouth and on peg tube feedings at goal. Repeat blood work reveals hemoglobin 11.7, WBC 11.2. Sodium 136, potassium 5, chloride 99, CO2 32, BUN 38 and creatinine 1. Blood hayes gars are running between 125-197. Repeat chest x-ray consistent with history of pneumonia. Patient may move out of the ICU tomorrow. 02/06: A remains in the intensive care unit. His daughter is at the bedside. He has been downgraded to [facility] with telemetry and waiting for bed. He underwent barium swallow today and found no aspiration or penetration. Speech therapy has recommended regular diet with thin liquids. His secretions are much less and he is coughing less. He has been afebrile, heart rate in the 70s, blood pressure 103/59, pulse ox 9094% on 40% trach collar. Blood sugars are running between 123 and 165. 02/07: Patient is today on the cardiac stepdown unit. He is on trach collar at 80% FiO2 with pulse ox of 91%. He has been afebrile, heart rate 107, blood pressure 101/67. Patient a 25% of lunch and supper yesterday, he is enjoying being able to eat. He remains on PEG tube feedings as well . The patient has been approved for Medicaid and social work will discuss option of ECF with family. We will add in a consult for Dr. Nuñez for inpatient rehab. 02/08: Patient has been seen by Dr. Nuñez for possible inpatient rehab with goal of discharge on Thursday. Patient developed a fever 102 this morning at 4 AM, heart rate 101, blood pressure 97/64. Pulse ox is percent on 80% trach collar. Capillary blood glucose running between 114 and 209. We have ordered stat blood culture. Patient is on PEG tube feedings and oral diet. Repeat blood work reveals WBC 18.7, hemoglobin 12, platelet count 244. Electrolytes are normal. BUN 34 creatinine 1.02. Blood sugar 151. /: Patient is doing okay, and the medical floor, still on trach at 80%, patient's 18 on his own unsupervised, has rhonchi on breathing, PEG tube infusing VITAL 1.2, at 50 mL an an hour, on top of oral supplementation and sugar, twice a day. Patient is swallowing meds, any difficulty, is at bedside, updated regarding plans for possible inpatient rehab, still needs to be determined. 02/10: Patient is seen sitting up in bed, trying to expectorate mucus, has a hard time expectorating this time, thick tenacious mucus, requesting to have deep suctioning. is at bedside, no new fever no chills, still on trach 80%, no aspiration, PEG tube infusing at 50 mL an hour as previous, anticipated rehab, on Thursday to be determined whether's inpatient [place] subacute 02/11: Patient is seen today on the cardiac stepdown unit, patient's is at bedside. Patient is complaining of a backache. Patient is state that the discharge plan has changed and they are looking at having the trach removed and also having the PEG tube removed prior to discharge. PEG tube feedings are being weaned. 02/12: Patient was denied at [facility] for inpatient rehab as he was doing too well. Patient would also not qualify then for subacute rehab. Patient is not stable at this point to go home due to oxygenation needs. Patient will need to be down to 5 or 6 L in order to go home safely. He is weaned off PEG tube feedings. Has been afebrile, heart rate 95, blood pressure 101/66, pulse ox 94% on trach collar 10 L at 60% FiO2. Plan to wean patient down on oxygen therapy. Removal of PEG tube per general surgery. Repeat chest x-ray reveals stable diffuse bilateral infiltrates. 02/13: Patient is at 10 L trach collar O2 supplementation, Pseudomonas growing on sputum culture, for which the perfume has been started, no oral candidal changes, still has mucus production, no fever no chills, discussed with clinical social worker, insurance company might not be able to provide home therapy, and they're also trying to set up tracheostomy supplies, O2 devices, the earliest possibly for discharge, should his oxygen supplementation improve, would be February 16, however discharge planning, there is significant is for discharge secondary to supplies, most likely would be early next week REVIEW OF SYSTEMS. Constitutional: Noted fever, no chills, no night sweats. No weight change. Reports weakness, reports fatigue or lethargy. No daytime sleepiness. EENT: No headache. No blurred vision or double vision, no loss of vision. No loss of Hearing, no ringing in the ears, no dizziness. No nasal drainage or congestion. No epistaxis. No sore throat. Lungs: No shortness of breath, noted occasional cough, noted sputum production, proving. No wheezing. Cardiovascular: No chest pain, no lower extremity edema. No palpitations. No paroxysmal nocturnal dyspnea. No orthopnea. No lightheadedness or dizziness. No syncopal episodes. Abdominal: no abdominal discomfort. No nausea, vomiting. no diarrhea. No constipation. No bloody or tarry stools. no loss of appetite. Genitourinary: No dysuria, increased frequency, urgency. No urinary retention. Musculoskeletal: No myalgias. No muscle weakness, no gait dysfunction, no frequent falls. No back pain. No neck pain. Integumentary: No wounds, no lesions. No rash or pruritus. No unusual bruising. No change in hair or nails. Neurologic: No aphasia. No facial droop. No change in mentation. No head injury. No headache. No paralysis. No paresthesia. Psychiatric: No depression. No anxiety. No mood swings. Endocrine: No abnormal blood sugars. No weight change. PHYSICAL EXAMINATION Gen: This is a 55-year-old male. He is resting in bed, on trach collar at 60% FiO2, status post trach and PEG. HEENT: Head is atraumatic, normocephalic. Pupils equal, round. Sclerae is anicteric. Tracheostomy intact. NECK: Supple. No JVD. No lymphadenopathy. LUNGS: Crackles bilaterally. No accessory muscle usage. No intercostal retractions. HEART: Regular rate and rhythm. No murmur. ABDOMEN: Soft. Bowel sounds are present. No masses. No tenderness. PEG tube in place. EXTREMITIES: No pedal edema. No calf tenderness. NEUROLOGICAL: Patient is awake, alert and oriented 3, and able to follow comm ands and answer questions appropriately. ASSESSMENT AND PLAN 1. Acute hypoxic respiratory failure secondary to Covid 19 pneumonia and possible secondary pneumonia, gram-negative and fungal. Patient required intubation 01/14. Patient is status post trach and PEG tube placement 01/[address] Olivares. Patient started on January 12/2021 on baricinib 4 mg daily, discontinued on 01/24. Continue dexamethasone decreased to 4 mg IV daily, Lovenox 40 mg subcu daily, and vitamin supplements. 2. Acute respiratory distress syndrome secondary to coronavirus pneumonia. 3. Acute septic shock requiring vasopressors. Patient is status post IV fluid bolus and off vasopressors. 4. History of bilateral pulmonary emboli and DVT in 2015. CTA negative for PE. Not on chronic anticoagulation. 5. Acute transaminitis secondary to Covid 19. 6. Generalized osteoarthritis. 7. Degenerative changes in the cervical spine status post fusion of C5-6. 8. 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 9. Elevated liver function tests, transaminitis. 10. Hyperglycemia secondary to steroids. Patient is on NovoLog scale, Levemir 10 units at bedtime added. 11. Severe hyperkalemia, resolved. 12. GI prophylaxis. Protonix. 13. DVT prophylaxis. Lovenox. 14. Acute agitation on ventilator.Seroquel to 100 mg twice daily by metal container maker. 15. Moderate protein calorie malnutrition requiring PEG tube. Patient's diet advanced to regular with thin liquids by mouth, continue PEG tube feedings until oral diet is sufficient. DISCHARGE PLAN HOME WITH HOME CARE once stabilized on oxygen trach supplies, significant discharge burden as the patient might even have coverage for home therapy, clinical social worker is coordinating treatments. Current Medications Acetaminophen (Acetaminophen Tab 325 Mg Tab) 650 mg PO Q6HR PRN PRN Reason: Fever and/ or MILD Pain Last Admin: 02/11/21 08:45 Dose: 650 mg Documented by: Acetaminophen/Butalbital/Caffeine (Butalb/Apap/Caff 50-325-40mg Tab) 1 each PO Q6HR PRN PRN Reason: Headache Last Admin: 02/04/21 21:55 Dose: 1 each Documented by: Ascorbic Acid (Ascorbic Acid 500 Mg Tab) 1,000 mg PO DAILY [facility] Last Admin: 02/13/21 08:49 Dose: 1,000 mg Documented by: Cholecalciferol (Cholecalciferol 25 Mcg (1000 Iu) Tablet) 50 mcg PO DAILY [facility] Last Admin: 02/13/21 08:49 Dose: 50 mcg Documented by: Dexamethasone Sodium Phosphate (Dexamethasone Sod Phosphate 10 Mg/Ml 1 Ml Vial) 4 mg IVP DAILY [facility] Last Admin: 02/13/21 08:50 Dose: 4 mg Documented by: Enoxaparin Sodium (Enoxaparin 40 Mg/0.4 Ml Syringe) 40 mg SQ DAILY [facility] Last Admin: 02/13/21 08:50 Dose: 40 mg Documented by: Guaifenesin (Guaifenesin 600 Mg Tablet.Er) 1,200 mg PO Q12HR [facility] Last Admin: 02/13/21 08:49 Dose: 1,200 mg Documented by: Hydromorphone HCl (Hydromorphone 1 Mg/Ml 1 Ml Syringe) 1 mg IVP Q4HR PRN PRN Reason: Pain Cefepime HCl 2 gm/ Sodium (Chloride) 100 mls @ 25 mls/hr IVPB Q8HR [facility] Insulin Aspart (Insulin Aspart (Novolog) 100 Unit/Ml Vial) 0 unit SQ Q6H [facility]; Protocol Last Admin: 02/13/21 12:04 Dose: 2 unit Documented by: Insulin Detemir (Insulin Detemir (Levemir) 100 Unit/Ml Syr) [address] [facility] Last Admin: 02/12/21 20:15 Dose: 10 unit Documented by: Miscellaneous Information (Potassium Replacement Protocol 1 Each Misc) 1 each MISCELLANE DAILY PRN; Protocol PRN Reason: Per Protocol Naloxone HCl (Naloxone 0.4 Mg/Ml 1 Ml Vial) 0.2 mg IV Q2M PRN PRN Reason: Opioid Reversal Pantoprazole Sodium (Pantoprazole 40 Mg/10 Ml Vial) 40 mg IVP DAILY [facility] Last Admin: 02/13/21 08:49 Dose: 40 mg Documented by: Quetiapine Fumarate (Quetiapine 100 Mg Tab) 100 mg PO BID [facility] Last Admin: 02/13/21 08:49 Dose: 100 mg Documented by: Zinc Sulfate (Zinc Sulfate 220 Mg Cap) 220 mg PO DAILY [facility] Last Admin: 02/13/21 08:49 Dose: 220 mg Documented by: Vital Signs Temp 98.2 F 02/13/21 08:00 Pulse 77 02/13/21 12:00 Resp 16 02/13/21 12:00 BP 115/75 02/13/21 12:00 Pulse Ox 90 L 02/13/21 12:00 Intake & Output 02/12/21 02/13/21 02/13/21 18:59 06:59 18:59 Intake Total 378 20 138 Output Total 1250 325 Balance -872 -305 138 Intake: IV 20 20 20 Invasive Line 8 20 20 20 Oral 358 [id number] Output: Urine 1250 325 Other: Voiding Method Urinal Urinal Urinal # Voids 2 ABP, PAP, CO, CI - Last Documented Arterial Blood Pressure 118/93 Laboratory Results - Last 24 Hours 02/12/21 02/12/21 02/13/21 16:36 20:08 06:17 POC Glucose (mg/dL) 130 H 110 H 107 H POC Glu Vp Construction ID Luz Elena Raymond Alicya Swinson, Alicya 02/13/21 11:34 POC Glucose (mg/dL) 178 H POC Glu Vp Construction ID Luz Elena Raymond Objective - Vital Signs Vital signs: Vital Signs Temp 98.2 F 02/13/21 08:00 Pulse 77 02/13/21 12:00 Resp 16 02/13/21 12:00 BP 115/75 02/13/21 12:00 Pulse Ox 90 L 02/13/21 12:00 Intake & Output 02/12/21 02/13/21 02/13/21 18:59 06:59 18:59 Intake Total 378 20 138 Output Total 1250 325 Balance -872 -305 138 Intake: IV 20 20 20 Invasive Line 8 20 20 20 Oral 358 118 Output: Urine 1250 325 Other: Voiding Method Urinal Urinal Urinal # Voids 2 ABP, PAP, CO, CI - Last Documented Arterial Blood Pressure 118/93 - Labs CBC & Chem 7: 02/08/21 08:50 02/08/21 08:50 Labs: Abnormal Lab Results - Last 24 Hours (Table) 02/12/21 02/12/21 02/13/21 Range/Units 16:36 20:08 06:17 POC Glucose (mg/dL) 130 H 110 H 107 H (75-99) mg/dL 02/13/21 Range/Units 11:34 POC Glucose (mg/dL) 178 H (75-99) mg/dL Microbiology - Last 24 Hours (Table) 02/08/21 08:50 Blood Culture - Preliminary Blood No Growth after 120 hours 02/11/21 14:24 Gram Stain - Final Gastric Aspirate Sputum Culture - Final Pseudomonas aeruginosa
[2021-02-13 16:56] LABS: Glucose,Whole Blood 134 mg/dL (75-99)
[2021-02-13] MEDS: CEFEPIME 2 GM in SODIUM CHLORIDE 0.9% 100 ML IVPB SCH (17:52)
[2021-02-13 20:05] LABS: Glucose,Whole Blood 128 mg/dL (75-99)
[2021-02-13] MEDS: INSULIN DETEMIR (LEVEMIR) 100 UNIT/ML SYR SQ SCH (21:45)
[2021-02-14] MEDS: INSULIN ASPART (NovoLOG) 100 UNIT/ML VIAL SQ SCH ×4 (00:21→17:10)
[2021-02-14] MEDS: CEFEPIME 2 GM in SODIUM CHLORIDE 0.9% 100 ML IVPB SCH ×3 (00:22→17:11)
[2021-02-14 06:05] LABS: Glucose,Whole Blood 117 mg/dL (75-99)
[2021-02-14] MEDS: DEXAMETHASONE SOD PHOSPHATE 10 MG/ML 1 ML VIAL IVP SCH (09:26)
[2021-02-14] MEDS: ENOXAPARIN 40 MG/0.4 ML SYRINGE SQ SCH (09:27)
[2021-02-14] MEDS: QUEtiapine 100 MG TAB PO SCH ×2 (09:27→21:02)
[2021-02-14] MEDS: ZINC SULFATE 220 MG CAP PO SCH (09:27)
[2021-02-14] MEDS: guaiFENesin 600 MG TABLET.ER PO SCH ×2 (09:27→21:02)
[2021-02-14] MEDS: ASCORBIC ACID 500 MG TAB PO SCH (09:27)
[2021-02-14] MEDS: PANTOPRAZOLE 40 MG/10 ML VIAL IVP SCH (09:27)
[2021-02-14] MEDS: CHOLECALCIFEROL 25 MCG (1000 IU) TABLET PO SCH (09:28)
--- NOTE | 2021-02-14 11:05 | P.PN ---
Subjective Progress Note Date: 02/14/21 Principal diagnosis: COVID-19 pneumonia The patient is seen today 02/14/2021 in follow-up on the selective care unit. He is currently sitting up in bed. Awake and alert in no acute distress. Oriented 3. He is on 35% trach collar maintaining O2 saturations in the 90s. His last being culture was positive for pseudomonas aeruginosa. He remains on cefepime. Blood sugar 117. Recent coronavirus by PCR not detected. He is continued on Decadron, Lovenox, vitamin supplements. He is in good spirits and hoping to go home soon. Objective - Vital Signs Vital signs: Vital Signs Temp 99.1 F 02/14/21 04:00 Pulse 129 H 02/14/21 08:00 Resp 16 02/14/21 08:00 BP 106/80 02/14/21 08:00 Pulse Ox 98 02/14/21 08:00 Intake & Output 02/13/21 02/14/21 02/14/21 18:59 06:59 18:59 Intake Total 585 118 Output Total 400 500 Balance 185 -382 Intake: IV 20 Invasive Line 8 20 Intake, IV Titration 100 Amount Cefepime 2 gm In Sodium 100 Chloride 0.9% 100 ml @ 25 mls/hr IVPB Q8HR [facility] Rx# :[id number] Oral 465 118 Output: Urine 400 500 Other: Voiding Method Urinal Urinal Urinal # Voids 1 ABP, PAP, CO, CI - Last Documented Arterial Blood Pressure 118/93 - Exam GENERAL EXAM: Alert, pleasant 55-year-old gentleman, on 35% FiO2 via trach collar, comfortable in no acute distress. HEAD: Normocephalic. EYES: Normal reaction of pupils, equal size. NOSE: Clear with pink turbinates. THROAT: No erythema or exudates. NECK: Tracheostomy tube secured in place. No masses, no JVD. CHEST: No chest wall deformity. LUNGS: Equal air entry with fine crackles in the bilateral bases. CVS: S1 and S2 normal with no audible murmur, regular rhythm. ABDOMEN: No hepatosplenomegaly, normal bowel sounds, no guarding or rigidity. SPINE: No scoliosis or deformity SKIN: No rashes CENTRAL NERVOUS SYSTEM: No focal deficits, tone is normal in all 4 extremities. EXTREMITIES: There is no peripheral edema. No clubbing, no cyanosis. Peripheral pulses are intact. - Labs CBC & Chem 7: 02/08/21 08:50 02/08/21 08:50 Labs: Abnormal Lab Results - Last 24 Hours (Table) 02/13/21 02/13/21 02/13/21 Range/Units 11:34 16:54 20:03 POC Glucose (mg/dL) 178 H 134 H 128 H (75-99) mg/dL 02/14/21 Range/Units 06:03 POC Glucose (mg/dL) 117 H (75-99) mg/dL Microbiology - Last 24 Hours (Table) 02/08/21 08:50 Blood Culture - Preliminary Blood No Growth after 120 hours 02/11/21 14:24 Gram Stain - Final Gastric Aspirate Sputum Culture - Final Pseudomonas aeruginosa Assessment and Plan Assessment: 1 Acute hypoxemic respiratory failure secondary to coronavirus associated pneumonia, with intubation and mechanical ventilation, initiated on January 14, for worsening hypoxemia. Noted the patient was initially on nasal cannula oxygen supplementation and following that the patient required BiPAP and ultimately the patient to be intubated on 01/14/2021 for respiratory failure secondary to COVID-19 related to pneumonia. Patient is currently on a combination of Decadron and Baricitinib per protocol. The patient is post tracheostomy tube insertion and suggested was inserted on 01/23/2021. The patient was subsequently weaned off the mechanical ventilator and the patient is currently on 60% trach collar. Most recent chest x-ray from 02/20/2021 showed some interval worsening lower lobe consolidation and possibly development of some effusion. Patient is afebrile. No sinus of any respiratory difficulties for now. Chest x-ray on 02/12/2021 continues to have stable bilateral pulmonary infiltrates. The patient was having excessive secretions. Based on that, a repeat sputum analysis was done and showed positive pseudomonas aeruginosa. On IV cefepime. 2 Acute respiratory distress syndrome (ARDS), secondary to coronavirus associated pneumonia. 3 Previous history of bilateral pulmonary emboli, and left leg DVT, 2016, currently on Lovenox. 4 History of osteoarthritis. 5 Aspergillus fumigatus and corynobacterium in the sputum, treated. This was likely a colonizer. He also developed a pseudomonal infection. Currently on cefepime. 6 Liver function tests are mildly elevated as the patient has a mild component of transaminitis, rest of the inflammatory markers are essentially improving including LDH, LFTs are improving and the patient will be started on voriconazole and LFTs are being monitored very closely 7 Acute sepsis with hypotension probably related to respiratory infection/pneumonia, recovered 8 Acute kidney injury, recovered Plan: The patient was seen and evaluated Stable and receiving a trach collar 35% FiO2 We'll plan to switch to oral antibiotics prior to discharge Possibly decannulate the patient prior to discharge We will continue to follow I, the cosigning physician, performed a history & physical examination of the patient. Lungs sounds with crackles in the posterior bases. Maintaining O2 saturations in the 90s on 35% trach collar. I discussed the assessment and plan of care with my nurse practitioner, Lakeshia Goldstein. I attest to the above note as dictated by her.
[2021-02-14 12:23] LABS: Glucose,Whole Blood 156 mg/dL (75-99)
[2021-02-14] MEDS: ACETAMINOPHEN TAB 325 MG TAB PO PRN (12:24)
--- NOTE | 2021-02-14 12:41 | P.PN ---
Subjective Progress Note Date: 02/14/21 HISTORY OF PRESENT ILLNESS This is a 55-year-old male patient of Dr. Palm with past medical history of bilateral pulmonary emboli and left leg DVT in 2016, osteoarthritis, degenerative changes in the cervical spine status post fusion of C5-6. Patient states he has not been feeling well since Thursday. He said shortness of breath cough is nonproductive along with fever and chills, exertional dyspnea. He denies having any nausea vomiting or diarrhea. He denies any close contacts to known Covid people. He states his temperature is been up to 102.7 at home. He is not vaccinated. Patient presented to [facility] emergency center and found to be febrile at 101.1, heart rate 90, blood pressure 122/80, pulse ox 85% on room air. CBC revealed platelet count of 128. D-dimer 0.82. Sodium 131 otherwise electrolytes and renal function were normal. Blood sugar 147. Troponin negative. Coronavirus PCR positive. Chest x-ray reveals patchy bilateral airspace disease especially in the mid and lower lungs. Correlate for multifocal pneumonia including Covid 19 pneumonia. CTA of the chest was suboptimal study without central acute pulmonary embolism. Bilateral multifocal and confluent groundglass opacities right greater than left and greater in the lower lungs consistent with known Covid 19 infection. Patient is seen today in the emergency center waiting for bed on the [facility] floor, started on Remdesivir, Lovenox, dexamethasone and vitamin supplements, consult with pulmonary medicine. 01/12: Patient is comfortable, however he requires 40 L of oxygen via airvo sats 88-89%, he feels better today compared to his nonrebreather mask yesterday, patient did not sleep well, patient does not have any cough, however he does have shortness of breath. Patient denies any aspiration, appetite is still marginal, patient has insomnia vitals, blood sugar currently is 243, creatinine of 0.98, d-dimer is 0.84, CRP is elevated, LDH is elevated, venous Doppler, shows chronic DVT, left popliteal, in the posterior tibial veins, without any obstruction of flow. No acute DVT identified CTA, shows suboptimal, without central acute pulmonary emboli, has bilateral multifocal and confluent groundglass opacities, right greater than left, lower lobe, consistent with COVID-19 infection and remdesivir discontinued by pulmonary today and is outside of the window for remdesivir 01/13: Patient is on aerosol 14 L, with nonrebreather mask, 15 L, hypoxemia noted on 88%, worse with coughing, however his nonrebreather mask is very loose. Nurse is worriedwith the turn of events, and requested an ICU transfer, Dr. Canales has seen the patient, and is stable for floor management at this time, patient is not significant tachypnea, and is not tiring out. There is no hemoptysis, and mucus is productive, patient's doing incentive spirometry, up 2 L. 01/14: Patient remains in the intensive care unit, he was intubated this morning as he was desaturating with BiPAP. He has been afebrile, heart rate 73, blood pressure 93/47, pulse ox 90%. CBC is unremarkable. D-dimer 12.04. Sodium 135, creatinine 0.82. LDH 2929, C-reactive protein 5.2. Sputum culture is in progress. He has had good urine output. Chest x-ray reveals no evident convocation from catheters. Bilateral airspace disease. 01/15: Patient remains in the intensive care intubated and on mechanical ventilation with tidal volume 450, FiO2 80, PEEP of 15. Patient has been started on norepinephrine and remains on propofol, heparin drip, Nimbex. Repeat blood work revealed unremarkable CBC. Creatinine 0.88. Capillary blood glucose running between 195 and 215. AST 126, ALT 183, alkaline phosphatase 109. Sputum culture is in progress. Repeat chest x-ray reveals correlate for pneumonia versus edema, ARDS. Patient is continued on vitamin supplements, heparin drip, dexamethasone and Baricitinib. patient remains in intensive care intubated on mechanical ventilator at FiO2 60 percent PEEP respiratory rate of 30 tidal volume 450. Continues to maintain saturations between 94-95% on the current settings. Vitals otherwise stable labs reviewed today WBC is 9.5 hemoglobin 12.4 d-dimer is elevated at 4.98. ABG obtained today suggest pH of 7.4 pO2 53 bicarb 26 on 50% FiO2. Creatinine stable at 0.78 glucose is maintained between 145-190. LDH 1564 CRP is elevated at 4. Patient's inflammatory markers trending down. Patient's vent settings increased to 80% for inadequate oxygenation. Chest x-ray reviewed showed bilateral infiltrate consistent with coronavirus associated pneumonia. Patient continues intubated on propofol 70 bike but patient examined Nimbex 1.25 g daily per minute. Patient to receive 1 dose of Lasix today. Continue to remain on baricitinib day 2 PAtient remains intubaated since . patient continues too remain on assist control, TV 450 , peep 15 and fio2 of 60 %. patient was proned for 16 hours yesterday. CXR was reviewed, COVID pneumonia but no significant change was noted, Will repeat inflammatory markers tomorrow. Vent managment per chief meter reader . Patient contines to remain propofol , nimbex. Continue on lovenox, baricitinib, dexamethasone and vit supplement 01/18 patient continues to remain intubated. Covid pneumonia. Is currently on assist control respiratory rate of 30 tidal volume 450 FiO2 of 55% and PEEP of 15. She is currently on heparin drip, propofol and Nimbex. Patient continues to tolerate prone positioning 16 hours overnight. Continues to receive dexamethasone, vitamin supplement, anticoagulation with heparin, baricitinib. Labs are reviewed patient has a hemoglobin stable at 12.2. This morning pH 7.48 PCO2 44 bicarb 32 creatinine 0.73 AST 100 chest x-ray done this morning suggestive of ARDS and pneumonia 01/19 patient continues to remain intubated currently on assist-control vent with a rate of 30 tidal volume 450 FiO2 50 and PEEP of 15. Continues to remain on propofol and Nimbex. Continue heparin drip for anticoagulation. Remains on Baricitinib , vitamin supplementation and dexamethasone. Labs reviewed hemoglobin stable at 12 PTT 53 blood gas obtained today suggest a pH of 7.45 pCO2 46 pO2 69 bicarb 32 BUN 23 creatinine 0.0.8 glucose 122 AST ED ALT 226. inflammation markers ordered for tomorrow last set was obtained on 01/12 01/20 Intubated. Vitals reviewed patient's afebrile pulse of 68 respiratory rate 30 blood pressure. 94/56 oxygen 91% on 50% FiO2. Patient remains on assist control, tidal volume 450 respiratory rate 30 FiO2 of 50% and PEEP of 15. He is currently on Pneumovax at 3 mics per KG per minute propofol at 50 Micro-K to Coumadin and heparin drip. Patient labs are reviewed hemoglobin is 11.7. Arterial blood gas at 50% FiO2 has a pH of 7.47 pO2 of 77 bicarb of 31 BUN 24 creatinine 0.7 LDH [id number] CRP 8.70. CRP is slightly elevated with improvement in LDH. Continue to monitor patient with the goal with treatment on heparin, as dexamethasone, vitamin supplementation and Baricitinib . Blood sugar are well controlled. 01/21: Patient remains intubated and on mechanical ventilation with tidal volume 400, FiO2 40 and PEEP of 16. Patient is on propofol and fentanyl drips. He is on tube feedings to be increased to 26 ML's per hour and tolerating. She he has had 100 250 ML's of urine output per hour. He has been afebrile, heart rate 70, respiratory rate 30, blood pressure 115/64, pulse ox 93%. Repeat blood work reveals WBC 7.4, hemoglobin 12, platelet count 310. D-dimer 1.23. Sodium 134, BUN 24 and creatinine 0.73. Blood sugars are running between 101 and 164. AST 105, ALT 261, alkaline phosphatase 135. LDH 999. C-reactive protein 13.5. Albumin 2.9. Gallbladder ultrasound reveals nonspecific pattern of liver can be seen with hepatic steatitis or hepatocellular disease including hepatitis. The chest x-ray reveals bilateral patchy airspace disease stable. 01/22: Remains in the intensive care unit intubated and on mechanical ventilation with tidal volume 400, FiO2 40, PEEP of 13. Paralytics for pause this morning and patient had significant drop in his pulse ox. He is currently on propofol, fentanyl and Nimbex. He has been afebrile, heart rate 73, blood pressure 99/63, pulse ox 90%. Repeat blood work reveals hemoglobin 11.6. Creat inine 0.81. Blood sugars are running between 98 and 155. AST 85, ALT 260, alkaline phosphatase 132. LDH 954, C-reactive protein 6.8. Repeat chest x-ray reveals bilateral patchy diffuse airspace disease stable. Patient is continued on Baricitinib, Lovenox 40 mg subcu daily, dexamethasone 6 mg IV push and vitamin supplements 01/23: Remains in the intensive care unit on mechanical ventilation with tidal volume 400, FiO2 40 and PEEP of 10. Patient is scheduled for trach and PEG tube placement today. He is currently on propofol, fentanyl and Nimbex. Patient remains afebrile, heart rate 69, respiratory rate 30, blood pressure 120/76, pulse ox 93%. Repeat blood work reveals creatinine is 0.71. WBC 8.3, hemoglobin 12.9. AST 111, ALT 328, alkaline phosphatase 153. Blood sugars have been running between 92 and 193. Sputum culture is showing Corynebacterium species from 01/21 and Aspergillus from 01/14. Repeat chest x-ray reveals bilateral patchy diffuse airspace disease stable. Patient is continued on Baricitinib, Lovenox 40 mg subcu daily, dexamethasone 6 mg IV push and vitamin supplements 01/24: Patient is status post trach and PEG tube done yesterday by Dr. Olivares. Patient is off Nimbex and he has his eyes open but not following commands. Patient's is planning to come in today to see him. He remains on ventilator with tidal volume 300, FiO2 50 and PEEP of 10. Repeat chest x-ray reveals diffuse bilateral infiltrate stable. Antibiotics have been changed to c efepime and patient started on IV Voriconazole. Patient is continued on dexamethasone, Lovenox and vitamin supplements. WBC 17.2, hemoglobin 12.3. Sodium 130, BUN 21 creatinine 0.83. Total bilirubin 2, AST 54, ALT 248, alkaline phosphatase 132. Capillary blood glucose running between 80 and 193. 01/25: Patient remains in the intensive care unit on mechanical ventilation with tidal volume 400, FiO2 is been increased to 100 and PEEP of 12. Patient is currently on propofol, and was started on vasopressors yesterday and is status post 2 L of IV fluid. Temperature max 101.3. Pulse 87, respiratory rate 33, blood pressure 120/57, pulse ox 95%. monitoring and evaluation advisor is a sinus rhythm. Repeat blood work reveals WBC 8.3, hemoglobin 11. Sodium 136, chloride 108. Creatinine is 0.83. Calcium 7.9. Total bilirubin 2.7, AST 64, ALT 171, alkaline phosphatase 127. LDH 1187. C-reactive protein 32.6. Blood sugars are running between 133 and 173. Urine culture is showing gram-negative bacilli. Blood culture from 01/24 showing no growth at 24 hours. Repeat chest x-ray reveals clear to megaly with bilateral confluent mid to lower lung opacities consistent with: 19 infection redemonstrated. No significant change. Patient is currently on cefepime, Zyvox and there, so for worsening bilateral pulmonary infiltrate, pneumonia. 01/26: Patient remains in intensive care unit on mechanical ventilation with tidal volume 450, FiO2 80 and PEEP of 12. He has been afebrile for greater than 24 hours. Heart rate 80, blood pressure 132/70, pulse ox 86%. He does have leaking around the tracheostomy site. Repeat blood work reveals WBC 8, hemoglobin 11.1, platelet count 291. Sodium 135, potassium 5.8, creatinine 1.15. Total bilirubin 1.8, AST 101, ALT 194, alkaline phosphatase 135. LDH 1156. C-reactive protein 35.7. Blood sugars are running between 154 and 183. Patient will be started on Levemir 10 units at bedtime. He is continued on cefepime, Zyvox and voriconazole. 01/27: Patient remains intubated and on mechanical ventilation with tidal volume 400 50, FiO2 60, PEEP of 12. Plan is to try and wean oxygen down today. Tracheostomy tube has been manipulated and repositioned. He is not requiring vasopressors, currently on propofol. Chest x-ray reveals no significant interval change. Patient has had good urine output with BUN of 37 creatinine 1.28. Other lab work reveals WBC 9.8, hemoglobin 10.7. D-dimer 5.45. Total bilirubin 1.4, AST 153, ALT 282, alkaline phosphatase 138, LDH 1073. C-reactive protein 16.3. ProCalcitonin 10.1. 01/28: Remains in the intensive care unit, intubated and on mechanical ventilation with tidal volume 450, FiO2 of 60 and PEEP of 10. Patient is responsive, follows a few simple commands. He is currently on antibiotics in the form of cefepime, Zyvox and voriconazole. Patient is also continued on Decadron and Lovenox. Repeat blood work reveals WBC of 10, hemoglobin 10.5. D- dimer 5.63. C-reactive protein 6.2. LDH 1025. Total bilirubin 1.3, AST 95, ALT 250. Patient is on tube feedings at goal. He has had good urine output. Social work will start process for discharge to select specialty with anticipation of him being ready by the end of the week. 01/29 patient is currently in the ICU on with tracheostomy with tidal volume 450 FiO2 decreased to 55 this morning with PEEP of 10. Patient is responsive get agitated once propofol is discontinued. Patient is getting of diarrheal ordered every few hours to help with pain control. Currently stays on antibiotic in the form of cefepime, Zyvox and voriconazole. Urine output is appropriate in her on 75 200 mL per hour. Continues to remain on Decadron and Lovenox. He's current ly off norepinephrine off Precedex is off fentanyl. Chest x-ray reviewed has bilateral interstitial infiltrate not changed. Labs reviewed, WBC 11.1 hemoglobin is 11.4 R blood gas this morning on 60% FiO2 suggest EF pO2 of 65 bicarb 26 blood sugar controlled ranging from 156-197. Ventilator management per pulmonary as reduce the FiO2 to 55 . Repeat blood gas in 24 hours. Patient initiating Seroquel 50 twice a day for agitation. Discussion with the nurse was made to reduce the Seroquel to 25 twice a day if patient appears to be sedated 01/30: Patient remains in intensive care unit, intubated status post tracheostomy and PEG tube placement. He is on tidal volume 450, FiO2 of 50 and PEEP is down to 10. He is able to follow some simple commands. Pulmonary medicine is planning to discontinue propofol and switched to Precedex. He is on tube feedings. Social work is following for possible discharge to [facility] by the end of the week. 01/31: Patient remains in the intensive care unit intubated and on mechanical ventilation status post PEG tube and trach. Tidal volume 450, FiO2 50 and PEEP of 10. Patient is on propofol. He is on PEG tube feedings at goal. Patient is continued on Lovenox, Decadron, supplements. Cefepime has been discontinued and he is continued on Zyvox and 4, his old. Social work is following closely for discharge planning however at this time, there are no facilities that will accept the patient. 02/01: Patient is out of Covid isolation. Patient remains on mechanical ventilation with tidal volume 450, FiO2 50, PEEP of 10. Patient is on propofol which is to be weaned off today. He still has Sim catheter with good urine output. Feedings are at goal. Patient has occasional cough, mild edema. Patient is refusing IV Dilaudid for pain. Bowel movements been soft but no diarrhea. Patient is afebrile, heart rate 68, respiratory rate 24, blood pressure 130/75, pulse ox 92%. 02/02: Patient is seen in ICU he is currently out of Covid isolation. Remains on mechanical ventilation with trach. Tidal volume 450, rate of 22 with a PEEP of 8 FiO2 of 50%. Patient is currently on propofol which will continue to be weaned today with the addition of Ativan. Sim catheter in place with good urine output. Feedings are at goal. Does have occasional cough, mild edema. 02/03: Patient is seen in ICU remains on mechanical ventilation with trach. Tidal volume 450 rate of 22 with a PEEP of 6 FiO2 of 45%. Patient is off of pro pofol. Discussion for transitioned to CPAP machine for today. Sim catheter in place with good urine output. Feedings are at goal. Patient does have occasional cough continues have mild edema. Patient is able to follow commands bilateral upper extremity strength equal. 02/04: Patient remains in the intensive care unit. He is currently on trach collar at 40% FiO2 with pulse ox of 97%. He is afebrile, heart rate in the 50s to 80s, blood pressure 105/69. Repeat blood work reveals WBC 9.9, hemoglobin 11.1, platelet count 230. Sodium 135, potassium 4.3, chloride 101, CO2 29, BUN 40 creatinine 0.96. Blood sugars are running between 125 and 211. Repeat chest x-ray reveals findings consistent with Covid pneumonia consider ARDS. Patient is now slowly progressing and his goal is to get home by [place]. 02/05: Patient remains in the intensive care unit. He is on trach collar at 40% FiO2 with pulse ox of 87 and 95%. Blood pressure 103/66, heart rate in the 50s and 60s, afebrile. Patient is able to mouth words and cough is better today. He is needing to be suctioned for secretions. He is nothing by mouth and on peg tube feedings at goal. Repeat blood work reveals hemoglobin 11.7, WBC 11.2. Sodium 136, potassium 5, chloride 99, CO2 32, BUN 38 and creatinine 1. Blood hayes gars are running between 125-197. Repeat chest x-ray consistent with history of pneumonia. Patient may move out of the ICU tomorrow. 02/06: A remains in the intensive care unit. His daughter is at the bedside. He has been downgraded to [facility] with telemetry and waiting for bed. He underwent barium swallow today and found no aspiration or penetration. Speech therapy has recommended regular diet with thin liquids. His secretions are much less and he is coughing less. He has been afebrile, heart rate in the 70s, blood pressure 103/59, pulse ox 9094% on 40% trach collar. Blood sugars are running between 123 and 165. 02/07: Patient is today on the cardiac stepdown unit. He is on trach collar at 80% FiO2 with pulse ox of 91%. He has been afebrile, heart rate 107, blood pressure 101/67. Patient a 25% of lunch and supper yesterday, he is enjoying being able to eat. He remains on PEG tube feedings as well . The patient has been approved for Medicaid and social work will discuss option of ECF with family. We will add in a consult for Dr. Nuñez for inpatient rehab. 02/08: Patient has been seen by Dr. Nuñez for possible inpatient rehab with goal of discharge on Thursday. Patient developed a fever 102 this morning at 4 AM, heart rate 101, blood pressure 97/64. Pulse ox is percent on 80% trach collar. Capillary blood glucose running between 114 and 209. We have ordered stat blood culture. Patient is on PEG tube feedings and oral diet. Repeat blood work reveals WBC 18.7, hemoglobin 12, platelet count 244. Electrolytes are normal. BUN 34 creatinine 1.02. Blood sugar 151. /: Patient is doing okay, and the medical floor, still on trach at 80%, patient's 18 on his own unsupervised, has rhonchi on breathing, PEG tube infusing VITAL 1.2, at 50 mL an an hour, on top of oral supplementation and sugar, twice a day. Patient is swallowing meds, any difficulty, is at bedside, updated regarding plans for possible inpatient rehab, still needs to be determined. 02/10: Patient is seen sitting up in bed, trying to expectorate mucus, has a hard time expectorating this time, thick tenacious mucus, requesting to have deep suctioning. is at bedside, no new fever no chills, still on trach 80%, no aspiration, PEG tube infusing at 50 mL an hour as previous, anticipated rehab, on Thursday to be determined whether's inpatient [place] subacute 02/11: Patient is seen today on the cardiac stepdown unit, patient's is at bedside. Patient is complaining of a backache. Patient is state that the discharge plan has changed and they are looking at having the trach removed and also having the PEG tube removed prior to discharge. PEG tube feedings are being weaned. 02/12: Patient was denied at [facility] for inpatient rehab as he was doing too well. Patient would also not qualify then for subacute rehab. Patient is not stable at this point to go home due to oxygenation needs. Patient will need to be down to 5 or 6 L in order to go home safely. He is weaned off PEG tube feedings. Has been afebrile, heart rate 95, blood pressure 101/66, pulse ox 94% on trach collar 10 L at 60% FiO2. Plan to wean patient down on oxygen therapy. Removal of PEG tube per general surgery. Repeat chest x-ray reveals stable diffuse bilateral infiltrates. 02/13: Patient is at 10 L trach collar O2 supplementation, Pseudomonas growing on sputum culture, for which thecefepime has been started, no oral candidal changes, still has mucus production, no fever no chills, discussed with hospice social worker, insurance company might not be able to provide home therapy, and they're also trying to set up tracheostomy supplies, O2 devices, the earliest possibly for discharge, should his oxygen supplementation improve, would be February 16, however discharge planning, there is significant is for discharge secondary trach supplies, most likely would be early next week 02/14 patient is at bedside with the , eating lunch any difficulty, she sputum is still yellow tinged, T-max of 99 2, 10 L of trach mask FiO2 60%, vitals stable, episodic high rate of 120s, only when coughing, and expectorating. Patient does not have a diarrhea, no chest pain, ambulating without assistance to the bathroom no lightheadedness no dizziness. REVIEW OF SYSTEMS. Constitutional: Noted fever, no chills, no night sweats. No weight change. Reports weakness, reports fatigue or lethargy. No daytime sleepiness. EENT: No headache. No blurred vision or double vision, no loss of vision. No loss of Hearing, no ringing in the ears, no dizziness. No nasal drainage or congestion. No epistaxis. No sore throat. Lungs: No shortness of breath, noted occasional cough, noted sputum production, proving. No wheezing. Cardiovascular: No chest pain, no lower extremity edema. No palpitations. No paroxysmal nocturnal dyspnea. No orthopnea. No lightheadedness or dizziness. No syncopal episodes. Abdominal: no abdominal discomfort. No nausea, vomiting. no diarrhea. No constipation. No bloody or tarry stools. no loss of appetite. Genitourinary: No dysuria, increased frequency, urgency. No urinary retention. Musculoskeletal: No myalgias. No muscle weakness, no gait dysfunction, no frequent falls. No back pain. No neck pain. Integumentary: No wounds, no lesions. No rash or pruritus. No unusual bruising. No change in hair or nails. Neurologic: No aphasia. No facial droop. No change in mentation. No head injury. No headache. No paralysis. No paresthesia. Psychiatric: No depression. No anxiety. No mood swings. Endocrine: No abnormal blood sugars. No weight change. PHYSICAL EXAMINATION Gen: This is a 55-year-old male. He is resting in bed, on trach collar at 60% FiO2, status post trach and PEG. HEENT: Head is atraumatic, normocephalic. Pupils equal, round. Sclerae is anicteric. Tracheostomy intact. NECK: Supple. No JVD. No lymphadenopathy. LUNGS: Crackles bilaterally. No accessory muscle usage. No intercostal retrac tions. HEART: Regular rate and rhythm. No murmur. ABDOMEN: Soft. Bowel sounds are present. No masses. No tenderness. PEG tube in place. EXTREMITIES: No pedal edema. No calf tenderness. NEUROLOGICAL: Patient is awake, alert and oriented 3, and able to follow commands and answer questions appropriately. ASSESSMENT AND PLAN 1. Acute hypoxic respiratory failure secondary to Covid 19 pneumonia and possible secondary pneumonia, gram-negative and fungal. Patient required intubation 01/14. Patient is status post trach and PEG tube placement 01/[address] Olivares. Patient started on January 12/2021 on baricinib 4 mg daily, discontinued on 01/24. Continue dexamethasone decreased to 4 mg IV daily, Lovenox 40 mg subcu daily, and vitamin supplements. Trach collar with high flow O2 2. Acute respiratory distress syndrome secondary to coronavirus pneumonia. 3. Acute septic shock requiring vasopressors. Patient is status post IV fluid bolus and off vasopressors. 4. History of bilateral pulmonary emboli and DVT in 2015. CTA negative for PE. Not on chronic anticoagulation. 5. Acute transaminitis secondary to Covid 19. 6. Generalized osteoarthritis. 7. Degenerative changes in the cervical spine status post fusion of C5-6. 8. 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 9. Elevated liver function tests, transaminitis. 10. Hyperglycemia secondary to steroids. Patient is on NovoLog scale, Levemir 10 units at bedtime added. 11. Severe hyperkalemia, resolved. 12. GI prophylaxis. Protonix. 13. DVT prophylaxis. Lovenox. 14. Acute agitation on ventilator.Seroquel to 100 mg twice daily by chief meter reader. 15. Moderate protein calorie malnutrition requiring PEG tube. Patient's diet advanced to regular with thin liquids by mouth, continue PEG tube feedings until oral diet is sufficient. DISCHARGE PLAN HOME WITH HOME CARE once stabilized on oxygen trach supplies, significant discharge burden as the patient might even have coverage for home therapy, soc ial worker is coordinating treatments. Current Medications Acetaminophen (Acetaminophen Tab 325 Mg Tab) 650 mg PO Q6HR PRN PRN Reason: Fever and/ or MILD Pain Last Admin: 02/14/21 12:24 Dose: 650 mg Documented by: Acetaminophen/Butalbital/Caffeine (Butalb/Apap/Caff 50-325-40mg Tab) 1 each PO Q6HR PRN PRN Reason: Headache Last Admin: 02/04/21 21:55 Dose: 1 each Documented by: Ascorbic Acid (Ascorbic Acid 500 Mg Tab) 1,000 mg PO DAILY [facility] Last Admin: 02/14/21 09:27 Dose: 1,000 mg Documented by: Cholecalciferol (Cholecalciferol 25 Mcg (1000 Iu) Tablet) 50 mcg PO DAILY [facility] Last Admin: 02/14/21 09:28 Dose: 50 mcg Documented by: Dexamethasone Sodium Phosphate (Dexamethasone Sod Phosphate 10 Mg/Ml 1 Ml Vial) 4 mg IVP DAILY [facility] Last Admin: 02/14/21 09:26 Dose: 4 mg Documented by: Enoxaparin Sodium (Enoxaparin 40 Mg/0.4 Ml Syringe) 40 mg SQ DAILY [facility] Last Admin: 02/14/21 09:27 Dose: 40 mg Documented by: Guaifenesin (Guaifenesin 600 Mg Tablet.Er) 1,200 mg PO Q12HR [facility] Last Admin: 02/14/21 09:27 Dose: 1,200 mg Documented by: Hydromorphone HCl (Hydromorphone 1 Mg/Ml 1 Ml Syringe) 1 mg IVP Q4HR PRN PRN Reason: Pain Cefepime HCl 2 gm/ Sodium (Chloride) 100 mls @ 25 mls/hr IVPB Q8HR [facility] Last Admin: 02/14/21 09:27 Dose: 25 mls/hr Documented by: Insulin Aspart (Insulin Aspart (Novolog) 100 Unit/Ml Vial) 0 unit SQ Q6H [facility]; Protocol Last Admin: 02/14/21 12:20 Dose: Not Given Documented by: Insulin Detemir (Insulin Detemir (Levemir) 100 Unit/Ml Syr) 10 unit SQ HS [facility] Last Admin: 02/13/21 21:45 Dose: 10 unit Documented by: Miscellaneous Information (Potassium Replacement Protocol 1 Each Misc) 1 each MISCELLANE DAILY PRN; Protocol PRN Reason: Per Protocol Naloxone HCl (Naloxone 0.4 Mg/Ml 1 Ml Vial) 0.2 mg IV Q2M PRN PRN Reason: Opioid Reversal Pantoprazole Sodium (Pantoprazole 40 Mg/10 Ml Vial) 40 mg IVP DAILY [facility] Last Admin: 02/14/21 09:27 Dose: 40 mg Documented by: Quetiapine Fumarate (Quetiapine 100 Mg Tab) 100 mg PO BID [facility] Last Admin: 02/14/21 09:27 Dose: 100 mg Documented by: Zinc Sulfate (Zinc Sulfate 220 Mg Cap) 220 mg PO DAILY [facility] Last Admin: 02/14/21 09:27 Dose: 220 mg Documented by: Vital Signs Temp 97.9 F 02/14/21 08:00 Pulse 91 02/14/21 12:00 Resp 18 02/14/21 12:00 BP 100/69 02/14/21 12:00 Pulse Ox 91 L 02/14/21 12:00 Intake & Output 02/13/21 02/14/21 02/14/21 18:59 06:59 18:59 Intake Total 585 118 Output Total 400 500 Balance 185 -382 Intake: IV 20 Invasive Line 8 20 Intake, IV Titration 100 Amount Cefepime 2 gm In Sodium 100 Chloride 0.9% 100 ml @ 25 mls/hr IVPB Q8HR [facility] Rx# :[id number] Oral 465 118 Output: Urine 400 500 Other: Voiding Method Urinal Urinal Urinal # Voids 1 ABP, PAP, CO, CI - Last Documented Arterial Blood Pressure 118/93 Laboratory Results - Last 24 Hours 02/13/21 02/13/21 02/14/21 16:54 20:03 06:03 POC Glucose (mg/dL) 134 H 128 H 117 H POC Glu [facility] ID Ellen Cooley, Natalie Gomez 02/14/21 12:12 POC Glucose (mg/dL) 156 H POC Glu [facility] ID Shira Hill Objective - Vital Signs Vital signs: Vital Signs Temp 99.1 F 02/14/21 04:00 Pulse 91 02/14/21 12:00 Resp 18 02/14/21 12:00 BP 100/69 02/14/21 12:00 Pulse Ox 91 L 02/14/21 12:00 Intake & Output 02/13/21 02/14/21 02/14/21 18:59 06:59 18:59 Intake Total 585 118 Output Total 400 500 Balance 185 -382 Intake: IV 20 Invasive Line 8 20 Intake, IV Titration 100 Amount Cefepime 2 gm In Sodium 100 Chloride 0.9% 100 ml @ 25 mls/hr IVPB Q8HR [facility] Rx# :[id number] Oral 465 118 Output: Urine 400 500 Other: Voiding Method Urinal Urinal Urinal # Voids 1 ABP, PAP, CO, CI - Last Documented Arterial Blood Pressure 118/93 - Labs CBC & Chem 7: 02/08/21 08:50 02/08/21 08:50 Labs: Abnormal Lab Results - Last 24 Hours (Table) 02/13/21 02/13/21 02/14/21 Range/Units 16:54 20:03 06:03 POC Glucose (mg/dL) 134 H 128 H 117 H (75-99) mg/dL 02/14/21 Range/Units 12:12 POC Glucose (mg/dL) 156 H (75-99) mg/dL Microbiology - Last 24 Hours (Table) 02/08/21 08:50 Blood Culture - Final Blood No Growth after 144 hours 02/11/21 14:24 Gram Stain - Final Gastric Aspirate Sputum Culture - Final Pseudomonas aeruginosa
[2021-02-14 16:59] LABS: Glucose,Whole Blood 211 mg/dL (75-99)
[2021-02-14] MEDS: INSULIN DETEMIR (LEVEMIR) 100 UNIT/ML SYR SQ SCH (21:02)
[2021-02-14 21:05] LABS: Glucose,Whole Blood 93 mg/dL (75-99)
[2021-02-15] MEDS: CEFEPIME 2 GM in SODIUM CHLORIDE 0.9% 100 ML IVPB SCH ×2 (00:35→10:11)
[2021-02-15] MEDS: INSULIN ASPART (NovoLOG) 100 UNIT/ML VIAL SQ SCH ×3 (00:36→12:45)
[2021-02-15 07:09] LABS: Glucose,Whole Blood 93 mg/dL (75-99)
[2021-02-15] MEDS: DEXAMETHASONE SOD PHOSPHATE 10 MG/ML 1 ML VIAL IVP SCH (10:10)
[2021-02-15] MEDS: PANTOPRAZOLE 40 MG/10 ML VIAL IVP SCH (10:11)
[2021-02-15] MEDS: ASCORBIC ACID 500 MG TAB PO SCH (10:11)
[2021-02-15] MEDS: ZINC SULFATE 220 MG CAP PO SCH (10:12)
[2021-02-15] MEDS: ENOXAPARIN 40 MG/0.4 ML SYRINGE SQ SCH (10:12)
[2021-02-15] MEDS: guaiFENesin 600 MG TABLET.ER PO SCH (10:12)
[2021-02-15] MEDS: CHOLECALCIFEROL 25 MCG (1000 IU) TABLET PO SCH (10:12)
[2021-02-15] MEDS: QUEtiapine 100 MG TAB PO SCH (10:14)
[2021-02-15 11:49] LABS: Glucose,Whole Blood 116 mg/dL (75-99)
--- NOTE | 2021-02-15 12:09 | P.PN ---
Subjective Progress Note Date: 02/15/21 Principal diagnosis: COVID-19 pneumonia The patient is seen today 02/14/2021 in follow-up on the selective care unit. He is currently sitting up in bed. Awake and alert in no acute distress. Oriented 3. He is on 35% trach collar maintaining O2 saturations in the 90s. His last being culture was positive for pseudomonas aeruginosa. He remains on cefepime. Blood sugar 117. Recent coronavirus by PCR not detected. He is continued on Decadron, Lovenox, vitamin supplements. He is in good spirits and hoping to go home soon. The patient is seen today 02/15/2021 in follow-up on the selective care unit. He remains awake and alert in no acute distress. Resting comfortably in bed. He has been up ambulating with assistance. He is weak but improved. He continues with some bronchial secretions.tracheostomy tube secured in place. He is continued on the trach collar. Down to 5 L. He is continued on cefepime, Decadron, Lovenox, vitamin supplements. Objective - Vital Signs Vital signs: Vital Signs Temp 98.1 F 02/15/21 08:00 Pulse 65 02/15/21 08:00 Resp 18 02/15/21 08:00 BP 100/63 02/15/21 08:00 Pulse Ox 92 L 02/15/21 08:00 Intake & Output 02/14/21 02/15/21 02/15/21 18:59 06:59 18:59 Intake Total 354 580 118 Output Total 500 600 Balance -146 580 -482 Weight 94.5 kg Intake: Intake, IV Titration 100 Amount Cefepime 2 gm In Sodium 100 Chloride 0.9% 100 ml @ 25 mls/hr IVPB Q8HR [facility] Rx# :[id number] Oral 354 480 118 Output: Urine 500 600 Other: Voiding Method Urinal Urinal ABP, PAP, CO, CI - Last Documented Arterial Blood Pressure 118/93 - Exam GENERAL EXAM: Alert, pleasant 55-year-old gentleman, on 28% FiO2 via trach collar, comfortable in no acute distress. HEAD: Normocephalic. EYES: Normal reaction of pupils, equal size. NOSE: Clear with pink turbinates. THROAT: No erythema or exudates. NECK: Tracheostomy tube secured in place. No masses, no JVD. CHEST: No chest wall deformity. LUNGS: Equal air entry with fine crackles in the bilateral bases. CVS: S1 and S2 normal with no audible murmur, regular rhythm. ABDOMEN: No hepatosplenomegaly, normal bowel sounds, no guarding or rigidity. SPINE: No scoliosis or deformity SKIN: No rashes CENTRAL NERVOUS SYSTEM: No focal deficits, tone is normal in all 4 extremities. EXTREMITIES: There is no peripheral edema. No clubbing, no cyanosis. Peripheral pulses are intact. - Labs CBC & Chem 7: 02/08/21 08:50 02/08/21 08:50 Labs: Abnormal Lab Results - Last 24 Hours (Table) 02/14/21 02/14/21 02/15/21 Range/Units 12:12 16:58 11:48 POC Glucose (mg/dL) 156 H 211 H 116 H (75-99) mg/dL Microbiology - Last 24 Hours (Table) 02/08/21 08:50 Blood Culture - Final Blood No Growth after 144 hours Assessment and Plan Assessment: 1 Acute hypoxemic respiratory failure secondary to coronavirus associated pneumonia, with intubation and mechanical ventilation, initiated on January 14, for worsening hypoxemia. Noted the patient was initially on nasal cannula oxygen supplementation and following that the patient required BiPAP and ultimately the patient to be intubated on 01/14/2021 for respiratory failure secondary to COVID-19 related to pneumonia. Patient is currently on a combination of Decadron and Baricitinib per protocol. The patient is post tracheostomy tube insertion and suggested was inserted on 01/23/2021. The patient was subsequently weaned off the mechanical ventilator and the patient is currently on 28% trach collar. Patient is afebrile. No signs of any respiratory difficulties for now. Chest x-ray on 02/12/2021 continues to have stable bilateral pulmonary infiltrates. The patient was having excessive secretions. Based on that, a repeat sputum analysis was done and showed positive pseudomonas aeruginosa. On IV cefepime. 2 Acute respiratory distress syndrome (ARDS), secondary to coronavirus associated pneumonia. 3 Previous history of bilateral pulmonary emboli, and left leg DVT, 2016, currently on Lovenox. 4 History of osteoarthritis. 5 Aspergillus fumigatus and corynobacterium in the sputum, treated. This was likely a colonizer. He also developed a pseudomonal infection. Currently on cefepime. 6 Liver function tests are mildly elevated as the patient has a mild component of transaminitis, rest of the inflammatory markers are essentially improving including LDH, LFTs are improving 7 Acute sepsis with hypotension probably related to respiratory infection/pneumonia, recovered 8 Acute kidney injury, recovered Plan: The patient was seen and evaluated Stable and on a trach collar 28% FiO2 We'll discontinue cefepime Will plan for Cipro 500 mg by mouth twice a day 10 days Will plan for Lovenox or Eliquis 2.5 twice a day 14 days Possibly home today with tracheostomy education and supplies Follow-up in our office in 1-2 weeks' I, the cosigning physician, performed a history & physical examination of the patient. Lungs sounds with crackles in the posterior bases. Maintaining O2 saturations in the 90s on 28% trach collar. I discussed the assessment and plan of care with my nurse practitioner, Lakeshia Goldstein. I attest to the above note as dictated by her.
[2021-02-15 12:49] VITALS: BP 105/68; PULSE 75; RESP 16; TEMP 98.7
--- NOTE | 2021-02-15 14:53 | P.DS ---
Providers Date of admission: 01/11/21 11:43 Attending physician: Coy Gilliland Consults: 01/11/21 10:48 Consult Physician Urgent Consulting Provider: Muna Canales Consult Reason/Comments: hypoxia, covid Do you want consulting provider notified?: Yes 01/23/21 08:13 Consult Physician Routine Consulting Provider: Arnold Olivares Consult Reason/Comments: Trach and peg Do you want consulting provider notified?: Yes 02/07/21 10:55 Consult Physician Routine Consulting Provider: Vince Nuñez Consult Reason/Comments: IP rehab Do you want consulting provider notified?: Yes Primary care physician: [facility] Course: HISTORY OF PRESENT ILLNESS This is a 55-year-old male patient of Dr. Palm with past medical history of bilateral pulmonary emboli and left leg DVT in 2016, osteoarthritis, degenerative changes in the cervical spine status post fusion of C5-6. Patient states he has not been feeling well since Thursday. He said shortness of breath cough is nonproductive along with fever and chills, exertional dyspnea. He denies having any nausea vomiting or diarrhea. He denies any close contacts to known Covid people. He states his temperature is been up to 102.7 at home. He is not vaccinated. Patient presented to [facility] emergency center and found to be febrile at 101.1, heart rate 90, blood pressure 122/80, pulse ox 85% on room air. CBC revealed platelet count of 128. D-dimer 0.82. Sodium 131 otherwise electrolytes and renal function were normal. Blood sugar 147. Troponin negative. Coronavirus PCR positive. Chest x-ray reveals patchy bilateral airspace disease especially in the mid and lower lungs. Correlate for multifocal pneumonia including Covid 19 pneumonia. CTA of the chest was suboptimal study without central acute pulmonary embolism. Bilateral multifocal and confluent groundglass opacities right greater than left and greater in the lower lungs consistent with known Covid 19 infection. Patient is seen today in the emergency center waiting for bed on the MedSurg floor, started on Remdesivir, Lovenox, dexamethasone and vitamin supplements, consult with pulmonary medicine. 01/12: Patient is comfortable, however he requires 40 L of oxygen via airvo sats 88-89%, he feels better today compared to his nonrebreather mask yesterday, patient did not sleep well, patient does not have any cough, however he does have shortness of breath. Patient denies any aspiration, appetite is still marginal, patient has insomnia vitals, blood sugar currently is 243, creatinine of 0.98, d-dimer is 0.84, CRP is elevated, LDH is elevated, venous Doppler, shows chronic DVT, left popliteal, in the posterior tibial veins, without any obstruction of flow. No acute DVT identified CTA, shows suboptimal, without central acute pulmonary emboli, has bilateral multifocal and confluent groundglass opacities, right greater than left, lower lobe, consistent with COVID-19 infection and remdesivir discontinued by pulmonary today and is outside of the window for remdesivir 01/13: Patient is on aerosol 14 L, with nonrebreather mask, 15 L, hypoxemia noted on 88%, worse with coughing, however his nonrebreather mask is very loose. Nurse is worriedwith the turn of events, and requested an ICU transfer, Dr. Canales has seen the patient, and is stable for floor management at this time, patient is not significant tachypnea, and is not tiring out. There is no hemoptysis, and mucus is productive, patient's doing incentive spirometry, up 2 L. 01/14: Patient remains in the intensive care unit, he was intubated this morning as he was desaturating with BiPAP. He has been afebrile, heart rate 73, blood pressure 93/47, pulse ox 90%. CBC is unremarkable. D-dimer 12.04. Sodium 135, creatinine 0.82. LDH 2929, C-reactive protein 5.2. Sputum culture is in progress. He has had good urine output. Chest x-ray reveals no evident convocation from catheters. Bilateral airspace disease. 01/15: Patient remains in the intensive care intubated and on mechanical ventilation with tidal volume 450, FiO2 80, PEEP of 15. Patient has been started on norepinephrine and remains on propofol, heparin drip, Nimbex. Repeat blood work revealed unremarkable CBC. Creatinine 0.88. Capillary blood glucose running between 195 and 215. AST 126, ALT 183, alkaline phosphatase 109. Sputum culture is in progress. Repeat chest x-ray reveals correlate for pneumonia versus edema, ARDS. Patient is continued on vitamin supplements, heparin drip, dexamethasone and Baricitinib. patient remains in intensive care intubated on mechanical ventilator at FiO2 60 percent PEEP respiratory rate of 30 tidal volume 450. Continues to maintain saturations between 94-95% on the current settings. Vitals otherwise stable labs reviewed today WBC is 9.5 hemoglobin 12.4 d-dimer is elevated at 4.98. ABG obtained today suggest pH of 7.4 pO2 53 bicarb 26 on 50% FiO2. Creatinine stable at 0.78 glucose is maintained between 145-190. LDH 1564 CRP is elevated at 4. Patient's inflammatory markers trending down. Patient's vent settings increased to 80% for inadequate oxygenation. Chest x-ray reviewed showed bilateral infiltrate consistent with coronavirus associated pneumonia. Patient continues intubated on propofol 70 bike but patient examined Nimbex 1.25 g daily per minute. Patient to receive 1 dose of Lasix today. Continue to remain on baricitinib day 2 PAtient remains intubaated since . patient continues too remain on assist control, TV 450 , peep 15 and fio2 of 60 %. patient was proned for 16 hours yesterday. CXR was reviewed, COVID pneumonia but no significant change was noted, Will repeat inflammatory markers tomorrow. Vent managment per [place]. Patient contines to remain propofol , nimbex. Continue on lovenox, baricitinib, dexamethasone and vit supplement 01/18 patient continues to remain intubated. Covid pneumonia. Is currently on assist control respiratory rate of 30 tidal volume 450 FiO2 of 55% and PEEP of 15. She is currently on heparin drip, propofol and Nimbex. Patient continues to tolerate prone positioning 16 hours overnight. Continues to receive dexamethasone, vitamin supplement, anticoagulation with heparin, baricitinib. Labs are reviewed patient has a hemoglobin stable at 12.2. This morning pH 7.48 PCO2 44 bicarb 32 creatinine 0.73 AST 100 chest x-ray done this morning sugges tive of ARDS and pneumonia 01/19 patient continues to remain intubated currently on assist-control vent with a rate of 30 tidal volume 450 FiO2 50 and PEEP of 15. Continues to remain on propofol and Nimbex. Continue heparin drip for anticoagulation. Remains on Baricitinib , vitamin supplementation and dexamethasone. Labs reviewed hemoglobin stable at 12 PTT 53 blood gas obtained today suggest a pH of 7.45 pCO2 46 pO2 69 bicarb 32 BUN 23 creatinine 0.0.8 glucose 122 AST ED ALT 226. inflammation markers ordered for tomorrow last set was obtained on 01/12 01/20 Intubated. Vitals reviewed patient's afebrile pulse of 68 respiratory rate 30 blood pressure. 94/56 oxygen 91% on 50% FiO2. Patient remains on assist control, tidal volume 450 respiratory rate 30 FiO2 of 50% and PEEP of 15. He is currently on Pneumovax at 3 mics per KG per minute propofol at 50 Micro-K to Coumadin and heparin drip. Patient labs are reviewed hemoglobin is 11.7. Arterial blood gas at 50% FiO2 has a pH of 7.47 pO2 of 77 bicarb of 31 BUN 24 creatinine 0.7 LDH [id number] CRP 8.70. CRP is slightly elevated with improvement in LDH. Continue to monitor patient with the goal with treatment on heparin, as dexamethasone, vitamin supplementation and Baricitinib . Blood sugar are well controlled. 01/21: Patient remains intubated and on mechanical ventilation with tidal volume 400, FiO2 40 and PEEP of 16. Patient is on propofol and fentanyl drips. He is on tube feedings to be increased to 26 ML's per hour and tolerating. She he has had 100 250 ML's of urine output per hour. He has been afebrile, heart rate 70, respiratory rate 30, blood pressure 115/64, pulse ox 93%. Repeat blood work reveals WBC 7.4, hemoglobin 12, platelet count 310. D-dimer 1.23. Sodium 134, BUN 24 and creatinine 0.73. Blood sugars are running between 101 and 164. AST 105, ALT 261, alkaline phosphatase 135. LDH 999. C-reactive protein 13.5. Albumin 2.9. Gallbladder ultrasound reveals nonspecific pattern of liver can be seen with hepatic steatitis or hepatocellular disease including hepatitis. The chest x-ray reveals bilateral patchy airspace disease stable. 01/22: Remains in the intensive care unit intubated and on mechanical ventilation with tidal volume 400, FiO2 40, PEEP of 13. Paralytics for pause this morning and patient had significant drop in his pulse ox. He is currently on propofol, fentanyl and Nimbex. He has been afebrile, heart rate 73, blood pressure 99/63, pulse ox 90%. Repeat blood work reveals hemoglobin 11.6. Creatinine 0.81. Blood sugars are running between 98 and 155. AST 85, ALT 260, alkaline phosphatase 132. LDH 954, C-reactive protein 6.8. Repeat chest x-ray reveals bilateral patchy diffuse airspace disease stable. Patient is continued on Baricitinib, Lovenox 40 mg subcu daily, dexamethasone 6 mg IV push and vitamin supplements 01/23: Remains in the intensive care unit on mechanical ventilation with tidal volume 400, FiO2 40 and PEEP of 10. Patient is scheduled for trach and PEG tube placement today. He is currently on propofol, fentanyl and Nimbex. Patient remains afebrile, heart rate 69, respiratory rate 30, blood pressure 120/76, pulse ox 93%. Repeat blood work reveals creatinine is 0.71. WBC 8.3, hemoglobin 12.9. AST 111, ALT 328, alkaline phosphatase 153. Blood sugars have been running between 92 and 193. Sputum culture is showing Corynebacterium species from 01/21 and Aspergillus from 01/14. Repeat chest x-ray reveals bilateral patchy diffuse airspace disease stable. Patient is continued on Baricitinib, Lovenox 40 mg subcu daily, dexamethasone 6 mg IV push and vitamin supplements 01/24: Patient is status post trach and PEG tube done yesterday by Dr. Olivares. Patient is off Nimbex and he has his eyes open but not following commands. Patient's is planning to come in today to see him. He remains on ventilator with tidal volume 300, FiO2 50 and PEEP of 10. Repeat chest x-ray reveals diffuse bilateral infiltrate stable. Antibiotics have been changed to cefepime and patient started on IV Voriconazole. Patient is continued on dexamethasone, Lovenox and vitamin supplements. WBC 17.2, hemoglobin 12.3. Sodium 130, BUN 21 creatinine 0.83. Total bilirubin 2, AST 54, ALT 248, alkaline phosphatase 132. Capillary blood glucose running between 80 and 193. 01/25: Patient remains in the intensive care unit on mechanical ventilation with tidal volume 400, FiO2 is been increased to 100 and PEEP of 12. Patient is currently on propofol, and was started on vasopressors yesterday and is status post 2 L of IV fluid. Temperature max 101.3. Pulse 87, respiratory rate 33, blood pressure 120/57, pulse ox 95%. monitoring tech is a sinus rhythm. Repeat blood work reveals WBC 8.3, hemoglobin 11. Sodium 136, chloride 108. Creatinine is 0.83. Calcium 7.9. Total bilirubin 2.7, AST 64, ALT 171, alkaline phosphatase 127. LDH 1187. C-reactive protein 32.6. Blood sugars are running between 133 and 173. Urine culture is showing gram-negative bacilli. Blood culture from 01/24 showing no growth at 24 hours. Repeat chest x-ray reveals clear to megaly with bilateral confluent mid to lower lung opacities consistent with: 19 infection redemonstrated. No significant change. Patient is currently on cefepime, Zyvox and there, so for worsening bilateral pulmonary infiltrate, pneumonia. 01/26: Patient remains in intensive care unit on mechanical ventilation with tidal volume 450, FiO2 80 and PEEP of 12. He has been afebrile for greater than 24 hours. Heart rate 80, blood pressure 132/70, pulse ox 86%. He does have leaking around the tracheostomy site. Repeat blood work reveals WBC 8, hemoglobin 11.1, platelet count 291. Sodium 135, potassium 5.8, creatinine 1.15. Total bilirubin 1.8, AST 101, ALT 194, alkaline phosphatase 135. LDH 1156. C-reactive protein 35.7. Blood sugars are running between 154 and 183. Patient will be started on Levemir 10 units at bedtime. He is continued on cefepime, Zyvox and voriconazole. 01/27: Patient remains intubated and on mechanical ventilation with tidal volume 400 50, FiO2 60, PEEP of 12. Plan is to try and wean oxygen down today. Tracheostomy tube has been manipulated and repositioned. He is not requiring vasopressors, currently on propofol. Chest x-ray reveals no significant interval change. Patient has had good urine output with BUN of 37 creatinine 1.28. Other lab work reveals WBC 9.8, hemoglobin 10.7. D-dimer 5.45. Total bilirubin 1.4, AST 153, ALT 282, alkaline phosphatase 138, LDH 1073. C-reactive protein 16.3. ProCalcitonin 10.1. 01/28: Remains in the intensive care unit, intubated and on mechanical ventilation with tidal volume 450, FiO2 of 60 and PEEP of 10. Patient is responsive, follows a few simple commands. He is currently on antibiotics in the form of cefepime, Zyvox and voriconazole. Patient is also continued on Decadron and Lovenox. Repeat blood work reveals WBC of 10, hemoglobin 10.5. D- dimer 5.63. C-reactive protein 6.2. LDH 1025. Total bilirubin 1.3, AST 95, ALT 250. Patient is on tube feedings at goal. He has had good urine output. Social work will start process for discharge to select specialty with an ticipation of him being ready by the end of the week. 01/29 patient is currently in the ICU on with tracheostomy with tidal volume 450 FiO2 decreased to 55 this morning with PEEP of 10. Patient is responsive get agitated once propofol is discontinued. Patient is getting of diarrheal ordered every few hours to help with pain control. Currently stays on antibiotic in the form of cefepime, Zyvox and voriconazole. Urine output is appropriate in her on 75 200 mL per hour. Continues to remain on Decadron and Lovenox. He's currently off norepinephrine off Precedex is off fentanyl. Chest x-ray reviewed has bilateral interstitial infiltrate not changed. Labs reviewed, WBC 11.1 hemoglobin is 11.4 R blood gas this morning on 60% FiO2 suggest EF pO2 of 65 bicarb 26 blood sugar controlled ranging from 156-197. Ventilator management per pulmonary as reduce the FiO2 to 55 . Repeat blood gas in 24 hours. Patient initiating Seroquel 50 twice a day for agitation. Discussion with the nurse was made to reduce the Seroquel to 25 twice a day if patient appears to be sedated 01/30: Patient remains in intensive care unit, intubated status post tracheostomy and PEG tube placement. He is on tidal volume 450, FiO2 of 50 and PEEP is down to 10. He is able to follow some simple commands. Pulmonary medicine is planning to discontinue propofol and switched to Precedex. He is on tube feedings. Social work is following for possible discharge to [facility] by the end of the week. 01/31: Patient remains in the intensive care unit intubated and on mechanical ventilation status post PEG tube and trach. Tidal volume 450, FiO2 50 and PEEP of 10. Patient is on propofol. He is on PEG tube feedings at goal. Patient is continued on Lovenox, Decadron, supplements. Cefepime has been discontinued and he is continued on Zyvox and 4, his old. Social work is following closely for discharge planning however at this time, there are no facilities that will accept the patient. 02/01: Patient is out of Covid isolation. Patient remains on mechanical ventilation with tidal volume 450, FiO2 50, PEEP of 10. Patient is on propofol which is to be weaned off today. He still has Sim catheter with good urine output. Feedings are at goal. Patient has occasional cough, mild edema. Patient is refusing IV Dilaudid for pain. Bowel movements been soft but no diarrhea. Patient is afebrile, heart rate 68, respiratory rate 24, blood pressure 130/75, pulse ox 92%. 02/02: Patient is seen in ICU he is currently out of Covid isolation. Remains on mechanical ventilation with trach. Tidal volume 450, rate of 22 with a PEEP of 8 FiO2 of 50%. Patient is currently on propofol which will continue to be weaned today with the addition of Ativan. Sim catheter in place with good u rine output. Feedings are at goal. Does have occasional cough, mild edema. 02/03: Patient is seen in ICU remains on mechanical ventilation with trach. Tidal volume 450 rate of 22 with a PEEP of 6 FiO2 of 45%. Patient is off of propofol. Discussion for transitioned to CPAP machine for today. Sim catheter in place with good urine output. Feedings are at goal. Patient does have occasional cough continues have mild edema. Patient is able to follow commands bilateral upper extremity strength equal. 02/04: Patient remains in the intensive care unit. He is currently on trach collar at 40% FiO2 with pulse ox of 97%. He is afebrile, heart rate in the 50s to 80s, blood pressure 105/69. Repeat blood work reveals WBC 9.9, hemoglobin 11.1, platelet count 230. Sodium 135, potassium 4.3, chloride 101, CO2 29, BUN 40 creatinine 0.96. Blood sugars are running between 125 and 211. Repeat chest x-ray reveals findings consistent with Covid pneumonia consider ARDS. Patient is now slowly progressing and his goal is to get home by [place]. 02/05: Patient remains in the intensive care unit. He is on trach collar at 40% FiO2 with pulse ox of 87 and 95%. Blood pressure 103/66, heart rate in the 50s and 60s, afebrile. Patient is able to mouth words and cough is better today. He is needing to be suctioned for secretions. He is nothing by mouth and on peg tube feedings at goal. Repeat blood work reveals hemoglobin 11.7, WBC 11.2. Sodium 136, potassium 5, chloride 99, CO2 32, BUN 38 and creatinine 1. Blood sugars are running between 125-197. Repeat chest x-ray consistent with history of pneumonia. Patient may move out of the ICU tomorrow. 02/06: A remains in the intensive care unit. His daughter is at the bedside. He has been downgraded to [facility] with telemetry and waiting for bed. He underwent barium swallow today and found no aspiration or penetration. Speech therapy has recommended regular diet with thin liquids. His secretions are much less and he is coughing less. He has been afebrile, heart rate in the 70s, blood pressure 103/59, pulse ox 9094% on 40% trach collar. Blood sugars are running between 123 and 165. 02/07: Patient is today on the cardiac stepdown unit. He is on trach collar at 80% FiO2 with pulse ox of 91%. He has been afebrile, heart rate 107, blood pressure 101/67. Patient a 25% of lunch and supper yesterday, he is enjoying being able to eat. He remains on PEG tube feedings as well . The patient has been approved for Medicaid and social work will discuss option of ECF with family. We will add in a consult for Dr. Nuñez for inpatient rehab. 02/08: Patient has been seen by Dr. Nuñez for possible inpatient rehab with goal of discharge on Thursday. Patient developed a fever 102 this morning at 4 AM, heart rate 101, blood pressure 97/64. Pulse ox is percent on 80% trach collar. Capillary blood glucose running between 114 and 209. We have ordered stat blood culture. Patient is on PEG tube feedings and oral diet. Repeat blood work reveals WBC 18.7, hemoglobin 12, platelet count 244. Electrolytes are normal. BUN 34 creatinine 1.02. Blood sugar 151. /18: Patient is doing okay, and the medical floor, still on trach at 80%, patient's 18 on his own unsupervised, has rhonchi on breathing, PEG tube infusing VITAL 1.2, at 50 mL an an hour, on top of oral supplementation and sugar, twice a day. Patient is swallowing meds, any difficulty, is at bedside, updated regarding plans for possible inpatient rehab, still needs to be determined. 02/10: Patient is seen sitting up in bed, trying to expectorate mucus, has a hard time expectorating this time, thick tenacious mucus, requesting to have deep suctioning. is at bedside, no new fever no chills, still on trach 80%, no aspiration, PEG tube infusing at 50 mL an hour as previous, anticipated rehab, on Thursday to be determined whether's inpatient [place] subacute 02/11: Patient is seen today on the cardiac stepdown unit, patient's is at bedside. Patient is complaining of a backache. Patient is state that the discharge plan has changed and they are looking at having the trach removed and also having the PEG tube removed prior to discharge. PEG tube feedings are being weaned. 02/12: Patient was denied at [facility] for inpatient rehab as he was doing too well. Patient would also not qualify then for subacute rehab. Patient is not stable at this point to go home due to oxygenation needs. Patient will need to be down to 5 or 6 L in order to go home safely. He is weaned off PEG tube feedings. Has been afebrile, heart rate 95, blood pressure 101/66, pulse ox 94% on trach collar 10 L at 60% FiO2. Plan to wean patient down on oxygen therapy. Removal of PEG tube per general surgery. Repeat chest x-ray reveals stable diffuse bilateral infiltrates. 02/13: Patient is at 10 L trach collar O2 supplementation, Pseudomonas growing on sputum culture, for which thecefepime has been started, no oral candidal changes, still has mucus production, no fever no chills, discussed with social contact worker, insurance company might not be able to provide home therapy, and they're also trying to set up tracheostomy supplies, O2 devices, the earliest possibly for discharge, should his oxygen supplementation improve, would be February 16, however discharge planning, there is significant is for discharge secondary t [place] supplies, most likely would be early next week 02/14 patient is at bedside with the , eating lunch any difficulty, she sputum is still yellow tinged, T-max of 99 2, 10 L of trach mask FiO2 60%, vitals stable, episodic high rate of 120s, only when coughing, and expectorating. Patient does not have a diarrhea, no chest pain, ambulating without assistance to the bathroom no lightheadedness no dizziness. 02/15: Patient is doing significantly better, 5 L on trach mask, patient is going to be receiving trach teaching, including family members. Home O2, at 5 L, ciprofloxacin 500 twice a day for Pseudomonas pneumonia, 10 more days, e;iquis 2.5 mg twice a day for 14 days, continue zinc, has completed dexamethasone, trach care, pulmonary to see, 1 week, Dr. Cho to see, for trach management and possibly discontinuing the next 3 weeks. Pulmonary to formalize final recommendations for trach removal, on his scheduled visit discharge home today, with supplies and home therapy REVIEW OF SYSTEMS. Constitutional: Noted fever, no chills, no night sweats. No weight change. Reports weakness, reports fatigue or lethargy. No daytime sleepiness. EENT: No headache. No blurred vision or double vision, no loss of vision. No loss of Hearing, no ringing in the ears, no dizziness. No nasal drainage or congestion. No epistaxis. No sore throat. Lungs: No shortness of breath, noted occasional cough, noted sputum production, proving. No wheezing. Cardiovascular: No chest pain, no lower extremity edema. No palpitations. No paroxysmal nocturnal dyspnea. No orthopnea. No lightheadedness or dizziness. No syncopal episodes. Abdominal: no abdominal discomfort. No nausea, vomiting. no diarrhea. No constipation. No bloody or tarry stools. no loss of appetite. Genitourinary: No dysuria, increased frequency, urgency. No urinary retention. Musculoskeletal: No myalgias. No muscle weakness, no gait dysfunction, no frequent falls. No back pain. No neck pain. Integumentary: No wounds, no lesions. No rash or pruritus. No unusual bruising. No change in hair or nails. Neurologic: No aphasia. No facial droop. No change in mentation. No head injury. No headache. No paralysis. No paresthesia. Psychiatric: No depression. No anxiety. No mood swings. Endocrine: No abnormal blood sugars. No weight change. PHYSICAL EXAMINATION Gen: This is a 55-year-old male. He is resting in bed, on trach collar at 60% FiO2, status post trach and PEG. HEENT: Head is atraumatic, normocephalic. Pupils equal, round. Sclerae is anicteric. Tracheostomy intact. NECK: Supple. No JVD. No lymphadenopathy. LUNGS: Crackles bilaterally. No accessory muscle usage. No intercostal retractions. HEART: Regular rate and rhythm. No murmur. ABDOMEN: Soft. Bowel sounds are present. No masses. No tenderness. PEG tube in place. EXTREMITIES: No pedal edema. No calf tenderness. NEUROLOGICAL: Patient is awake, alert and oriented 3, and able to follow commands and answer questions appropriately. ASSESSMENT AND PLAN 1. Acute hypoxic respiratory failure secondary to Covid 19 pneumonia and possible secondary pneumonia, gram-negative and fungal. Patient required intu bation 01/14. Patient is status post trach and PEG tube placement 01/[address] Olivares. Patient started on January 12/2021 on baricinib 4 mg daily, discontinued on 01/24. Continue dexamethasone decreased to 4 mg IV daily, Lovenox 40 mg subcu daily, and vitamin supplements. Trach collar with high flow O2 2. Acute respiratory distress syndrome secondary to coronavirus pneumonia. 3. Acute septic shock requiring vasopressors. Patient is status post IV fluid bolus and off vasopressors. 4. History of bilateral pulmonary emboli and DVT in 2015. CTA negative for PE. Not on chronic anticoagulation. 5. Acute transaminitis secondary to Covid 19. 6. Generalized osteoarthritis. 7. Degenerative changes in the cervical spine status post fusion of C5-6. 8. 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 9. Elevated liver function tests, transaminitis. 10. Hyperglycemia secondary to steroids. Patient is on NovoLog scale, Levemir 10 units at bedtime added. 11. Severe hyperkalemia, resolved. 12. GI prophylaxis. Protonix. 13. DVT prophylaxis. Lovenox. 14. Acute agitation on ventilator.Seroquel to 100 mg twice daily by mustanger. 15. Moderate protein calorie malnutrition requiring PEG tube. Patient's diet advanced to regular with thin liquids by mouth, continue PEG tube feedings until oral diet is sufficient. Patient Condition at Discharge: Stable Plan - Discharge Summary Discharge Rx Participant: No New Discharge Prescriptions: New Ciprofloxacin HCl [Cipro] 500 mg PO BID #20 tab Zinc Sulfate [Orazinc] 220 mg PO DAILY #30 cap QUEtiapine [SEROquel] 100 mg PO BID #60 tab Apixaban [Eliquis] 2.5 mg PO BID #30 tab guaiFENesin [Mucinex] 1,200 mg PO Q12HR #60 tablet Acetaminophen Tab [Tylenol] 650 mg PO Q6HR PRN tab PRN Reason: Fever and/ or MILD Pain Ascorbic Acid [Vitamin C] 1,000 mg PO DAILY #30 tab Cholecalciferol [Vitamin D3 (25 Mcg = 1000 Iu)] 50 mcg PO DAILY #60 tablet Continue Betamethasone Dipropionate [Betamethasone Dipropionate 0.05%] 1 applic TOPICAL BID Discharge Medication List Betamethasone Dipropionate [Betamethasone Dipropionate 0.05%] 1 applic TOPICAL BID 01/11/21 [History] Acetaminophen Tab [Tylenol] 650 mg PO Q6HR PRN tab 02/15/21 [Rx] Apixaban [Eliquis] 2.5 mg PO BID #30 tab 02/15/21 [Rx] Ascorbic Acid [Vitamin C] 1,000 mg PO DAILY #30 tab 02/15/21 [Rx] Cholecalciferol [Vitamin D3 (25 Mcg = 1000 Iu)] 50 mcg PO DAILY #60 tablet 02/15/21 [Rx] Ciprofloxacin HCl [Cipro] 500 mg PO BID #20 tab 02/15/21 [Rx] QUEtiapine [SEROquel] 100 mg PO BID #60 tab 02/15/21 [Rx] Zinc Sulfate [Orazinc] 220 mg PO DAILY #30 cap 02/15/21 [Rx] guaiFENesin [Mucinex] 1,200 mg PO Q12HR #60 tablet 02/15/21 [Rx] Follow up Appointment(s)/Referral(s): Muna Canales MD [STAFF PHYSICIAN] - 1 Week [facility], [NON-STAFF] - Alfonso Palm DO [Primary Care Provider] - 1 Week Arnold Olivares MD [STAFF PHYSICIAN] - 4 Weeks (for removal of peg) Discharge Disposition: HOME SELF-CARE
[2021-02-15 16:48] LABS: Glucose,Whole Blood 193 mg/dL (75-99)
[2021-02-15] MEDS ORDERED: CIPROFLOXACIN HCL 500 MG TAB PO SCH (21:00)
--- NOTE | 2021-02-21 13:30 | P.OP ---
Date of Procedure: 01/23/21 Preoperative Diagnosis: respiratory failure Malnutrition Postoperative Diagnosis: respiratory failure Malnutrition Procedure(s) Performed: tracheostomy tube PEG tube Anesthesia: MANDY Surgeon: Arnold Olivares Estimated Blood Loss (ml): 5 Pathology: none sent Condition: stable Disposition: PACU Description of Procedure: The patient's placed on the bed in the supine position. The patient received general anesthesia. The neck was prepped and draped in usual sterile fashion. A standard transverse skin incision was made approximately 2 cm above the sternal notch. Using electrocautery the subcutaneous tissues were divided. The platysma was divided. A Wheatlander retractor was placed in the wound. Next the strap muscles were divided in the midline. Another weatlander retractor was placed the wound. The pretracheal fat was then divided with left cautery. The trachea was exposed. At this point the SENIOR MAINTENANCE MACHINIST advance the and the tracheal tube into the right mainstem bronchus. The balloon was inflated. A tracheotomy was then performed between the second and third tracheal rings. The perivascular tissues a gracilis the trachea. The endotracheal tube was brought back under direct vision. And then the #8 Portex tracheostomy tube was placed into the trachea. End-tidal CO2 was confirmed. The patient had been connected to the ventilator. The patient was ventilated satisfactory. The skin incision site was then closed with 3-0 nylon after the retractors were withdrawn. An umbilical tie was used to secure the tracheostomy tube. Next the gastroscope placed oropharynx passed in the esophagus and stomach. There is no evidence of any outlet obstruction. Stomach was insufflated with air. The light reflux seen the anterior abdominal wall. The abdomen was prepped and draped usual fashion. The skin was incised. And the needles placed and stomach under direct visualization. The needle was snared. And the wires placed through the needle and the wire was snared and brought the oropharynx. The PEG tube was placed over top the wire brought down to the stomach. The PEG tube was secured. At the 3 cm felicity. The one-piece bolster was used. Patient tolerated procedure well.
== END 2021-02-15 17:55 | disposition home or self-care (01) | DRG 4 ==
LOC: EC 08:05 → 4SSUR 11:43 → 2SICU 01-13 13:35 → 3SCARD 02-06 16:56
PROVIDERS: ADMIT Internal Medicine Geriatric Medicine; ATTEND Internal Medicine Geriatric Medicine
PROC: XW033E5 Introduction of Remdesivir Anti-infective into Peripheral Vein, Percutaneous Approach, New Technology Group 5 (ICD-10-PCS; 2021-01-11)
PROC: XW0DXM6 Introduction of Baricitinib into Mouth and Pharynx, External Approach, New Technology Group 6 (ICD-10-PCS; 2021-01-12)
PROC: 5A0945A Assistance with Respiratory Ventilation, 24-96 Consecutive Hours, High Flow/Velocity Cannula (ICD-10-PCS; 2021-01-12)
PROC: 5A1955Z Respiratory Ventilation, Greater than 96 Consecutive Hours (ICD-10-PCS; 2021-01-14)
PROC: 4A133J1 Monitoring of Arterial Pulse, Peripheral, Percutaneous Approach (ICD-10-PCS; 2021-01-14)
PROC: 4A133B1 Monitoring of Arterial Pressure, Peripheral, Percutaneous Approach (ICD-10-PCS; 2021-01-14)
PROC: 03HY32Z Insertion of Monitoring Device into Upper Artery, Percutaneous Approach (ICD-10-PCS; 2021-01-14)
PROC: 02HV33Z Insertion of Infusion Device into Superior Vena Cava, Percutaneous Approach (ICD-10-PCS; 2021-01-14)
PROC: 0BH17EZ Insertion of Endotracheal Airway into Trachea, Via Natural or Artificial Opening (ICD-10-PCS; 2021-01-14)
PROC: 3E043XZ Introduction of Vasopressor into Central Vein, Percutaneous Approach (ICD-10-PCS; 2021-01-14)
PROC: 0D9670Z Drainage of Stomach with Drainage Device, Via Natural or Artificial Opening (ICD-10-PCS; 2021-01-14)
PROC: 0B113F4 Bypass Trachea to Cutaneous with Tracheostomy Device, Percutaneous Approach (ICD-10-PCS; principal; 2021-01-23 13:17)
PROC: 0DH63UZ Insertion of Feeding Device into Stomach, Percutaneous Approach (ICD-10-PCS; principal; 2021-01-23 13:17)
PROC: 3E0G76Z Introduction of Nutritional Substance into Upper GI, Via Natural or Artificial Opening (ICD-10-PCS; principal; 2021-01-23 13:17)
PROC: 4A133J1 Monitoring of Arterial Pulse, Peripheral, Percutaneous Approach (ICD-10-PCS; 2021-01-25)
PROC: 4A133B1 Monitoring of Arterial Pressure, Peripheral, Percutaneous Approach (ICD-10-PCS; 2021-01-25)
PROC: 03HY32Z Insertion of Monitoring Device into Upper Artery, Percutaneous Approach (ICD-10-PCS; 2021-01-25)
PROC: 02HV33Z Insertion of Infusion Device into Superior Vena Cava, Percutaneous Approach (ICD-10-PCS; 2021-01-29)
PROC: 02HV33Z Insertion of Infusion Device into Superior Vena Cava, Percutaneous Approach (ICD-10-PCS; 2021-01-30)
DX: U07.1 COVID-19 (principal); A41.9 Sepsis, unspecified organism; E43 Unspecified severe protein-calorie malnutrition; I26.99 Other pulmonary embolism without acute cor pulmonale; J12.82 Pneumonia due to coronavirus disease 2019; J15.1 Pneumonia due to Pseudomonas; J80 Acute respiratory distress syndrome; R65.21 Severe sepsis with septic shock; B37.1 Pulmonary candidiasis; G62.81 Critical illness polyneuropathy; I82.432 Acute embolism and thrombosis of left popliteal vein; I82.502 Chronic embolism and thrombosis of unspecified deep veins of left lower extremity; B44.9 Aspergillosis, unspecified; N17.9 Acute kidney failure, unspecified; T85.638A Leakage of other specified internal prosthetic devices, implants and grafts, initial encounter; E11.65 Type 2 diabetes mellitus with hyperglycemia; T38.0X5A Adverse effect of glucocorticoids and synthetic analogues, initial encounter; Z68.29 Body mass index [BMI] 29.0-29.9, adult; E87.5 Hyperkalemia; G47.00 Insomnia, unspecified; M15.9 Polyosteoarthritis, unspecified; M50.30 Other cervical disc degeneration, unspecified cervical region; Z98.1 Arthrodesis status; Z53.20 Procedure and treatment not carried out because of patient's decision for unspecified reasons; Z20.822 Contact with and (suspected) exposure to COVID-19; Z53.09 Procedure and treatment not carried out because of other contraindication; Z77.090 Contact with and (suspected) exposure to asbestos; R45.1 Restlessness and agitation; R74.01 Elevation of levels of liver transaminase levels; L40.0 Psoriasis vulgaris; G43.909 Migraine, unspecified, not intractable, without status migrainosus; Z90.89 Acquired absence of other organs; Z98.890 Other specified postprocedural states; Z78.9 Other specified health status; Z79.01 Long term (current) use of anticoagulants; Z79.899 Other long term (current) drug therapy; Z80.8 Family history of malignant neoplasm of other organs or systems; Z82.49 Family history of ischemic heart disease and other diseases of the circulatory system; Z82.5 Family history of asthma and other chronic lower respiratory diseases; Z83.3 Family history of diabetes mellitus; Z86.711 Personal history of pulmonary embolism; Z87.442 Personal history of urinary calculi; Z91.02 Food additives allergy status
CPT/HCPCS: 36415; 36573; 36600; 43246; 71045; 71046; 71275; 74230; 76705; 80048; 80053; 82805; 83605; 83615; 84132; 84145; 84478; 84484; 85025; 85027; 85379; 85610; 85730; 86140; 87040; 87070; 87077; 87086; 87186; 87205; 87635; 93005; 93970; 94002; 94003; 94660; 94760; 96374; 99285

== ENCOUNTER → 2021-04-29 | Outpatient (CLI) | payer OTHER ==
--- NOTE | 2021-04-30 07:51 | ECHOF ---
Referral Reason:I30.9 pericarditis MEASUREMENTS -------- HEIGHT: 182.9 cm WEIGHT: 97.5 kg BP: RVIDd: 3.0 cm (< 3.3) IVSd: 1.2 cm (0.6 - 1.1) LVIDd: 4.8 cm (3.9 - 5.3) LVPWd: 1.0 cm (0.6 - 1.1) IVSs: 1.4 cm LVIDs: 3.2 cm LVPWs: 1.2 cm LA Diam: 3.6 cm (2.7 - 3.8) Ao Diam: 3.6 cm (2.0 - 3.7) AV Cusp: 2.5 cm (1.5 - 2.6) LA Diam: 4.0 cm (2.7 - 3.8) MV EXCURSION: 12.842 mm (> 18.000) MV EF SLOPE: 72 mm/s (70 - 150) EPSS: 0.5 cm MV E Amari: 0.31 m/s MV DecT: 386 ms MV A Amari: 0.57 m/s MV E/A Ratio: 0.54 RAP: 5.00 mmHg RVSP: 16.77 mmHg FINDINGS -------- Sinus rhythm. This was a technically good study. LV size, wall thickness and systolic function are normal, with an EF greater than 55%. The left nilam tricular size is normal. The right ventricle is normal in size. The left atrial size is normal. The right atrial size is normal. The aortic valve is trileaflet, and appears structurally normal. No aortic stenosis or regurgitation. Mild mitral regurgitation is present. Mild tricuspid regurgitation present. Right ventricular systolic pressure is normal at < 35 mmHg. There is no pulmonic regurgitation present. Echo free space represents a pericardial fat pad. CONCLUSIONS -------- 1. LV size, wall thickness and systolic function are normal, with an EF greater than 55%. 2. The left ventricular size is normal. 3. The right ventricle is normal in size. 4. The left atrial size is normal. 5. The right atrial size is normal. 6. The aortic valve is trileaflet, and appears structurally normal. No aortic stenosis or regurgitati on. 7. Mild mitral regurgitation is present. 8. Mild tricuspid regurgitation present. 9. Echo free space represents a pericardial fat pad. MEDICAL RECEPTIONIST MEDICAL ASSISTANT: Yady Iqbal RDCS
== END | disposition home or self-care (01) ==
LOC: RADECHMAIN 13:12
PROVIDERS: ATTEND Family Medicine
DX: I08.1 Rheumatic disorders of both mitral and tricuspid valves (principal)
CPT/HCPCS: 93306

== ENCOUNTER 2023-02-21 07:21 | Emergency (ER) | payer OTHER ==
[2023-02-21] MEDS ORDERED: DEXAMETHASONE SOD PHOSPHATE 10 MG/ML 1 ML VIAL IVP STA (07:38)
[2023-02-21] MEDS ORDERED: RACEPINEPHRINE 2.25% NEB 0.5 ML NEBU INHALATION STA ×2 (07:39→11:08)
--- NOTE | 2023-02-21 07:47 | ED ---
General Adult HPI - General Chief complaint: Shortness of Breath Stated complaint: PRITI Time Seen by Provider: 02/21/23 07:29 Source: patient, RN notes reviewed Mode of arrival: ambulatory Limitations: no limitations - History of Present Illness Initial comments: 57-year-old male with past medical history significant for tracheotomy and Covid in 2020 presents to the emergency department with a chief complaint of difficulty in breathing. Patient reports that he has been had progressive shortness of breath since April 2022. He reports he did have a tracheostomy while during an extended hospital stay secondary to Covid. He reports having 2 surgeries performed at [facility] in order to remove scar tissue from his tracheotomy site. He reports increased work of breathing over the last couple of days. Denies any known recent sick contacts. Denies any fevers or chills, sore throat or drooling. - Related Data Home Medications Medication Instructions Recorded Confirmed Betamethasone Dipropionate 1 applic TOPICAL BID 01/11/21 01/11/21 [Betamethasone Dipropionate 0.05%] Previous Rx's Medication Instructions Recorded Acetaminophen Tab [Tylenol] 650 mg PO Q6HR PRN tab 02/15/21 Apixaban [Eliquis] 2.5 mg PO BID #30 tab 02/15/21 Ascorbic Acid [Vitamin C] 1,000 mg PO DAILY #30 tab 02/15/21 Cholecalciferol [Vitamin D3 (25 50 mcg PO DAILY #60 tablet 02/15/21 Mcg = 1000 Iu)] Ciprofloxacin HCl [Cipro] 500 mg PO BID #20 tab 02/15/21 QUEtiapine [SEROquel] 100 mg PO BID #60 tab 02/15/21 Zinc Sulfate [Orazinc] 220 mg PO DAILY #30 cap 02/15/21 guaiFENesin [Mucinex] 1,200 mg PO Q12HR #60 tablet 02/15/21 Allergies Allergy/AdvReac Type Severity Reaction Status Date / Time monosodium glutamate [MSG] AdvReac MIGRAINES Verified 02/21/23 07:25 Review of Systems ROS Statement: Those systems with pertinent positive or pertinent negative responses have been documented in the HPI. ROS Other: All systems not noted in ROS Statement are negative. Past Medical History Past Medical History: Deep Vein Thrombosis (DVT), Osteoarthritis (OA) Additional Past Medical History / Comment(s): PAULETTE PE, DVT. ASBESTOS EXPOSURE, HIATAL HERNIA, MIGRAINES TRIGGERED BY MSG. KIDNEY STONES, PASSED OWN OWN. Plaque psoriasis History of Any Multi-Drug Resistant Organisms: None Reported Past Surgical History: Back Surgery, Orthopedic Surgery, Tonsillectomy Additional Past Surgical History / Comment(s): FUSION C5-C6, CYST REMOVED RT AXILLA AGE 8, Right Rotator cuff surgery Past Anesthesia/Blood Transfusion Reactions: No Reported Reaction Past Psychological History: No Psychological Hx Reported Smoking Status: Never smoker Past Alcohol Use History: None Reported Past Drug Use History: None Reported - Past Family History Father History Unknown: Yes Additional Family Medical History / Comment(s): PT WAS RAISED BY STEP FATHER Mother Family Medical History: Diabetes Mellitus, Hypertension Brother(s) Family Medical History: No Reported History Sister(s) Family Medical History: No Reported History Daughter(s) Family Medical History: Asthma General Exam - General Exam Comments Initial Comments: General: Alert, in no acute distress Head: atraumatic normocephalic. Eyes PERRL, EOMI intact, mucous membranes moist Respiratory: Stridor at rest, able to speak in 6-8 word sentences Cardiovascular: Heart rate regular rate and rhythm Abdominal: Soft without guarding or rebound Extremities: Normal inspection with full range of motion and normal capillary refill Neuroogic: alert and oriented 3, CN II-XII intact, able to ambulate with steady gait Skin: warm dry and intact with normal color Limitations: no limitations Course Vital Signs 02/21/23 02/21/23 02/21/23 07:23 08:00 08:09 Temperature 97.8 F Pulse Rate 89 77 77 Respiratory 28 H 28 H 18 Rate Blood Pressure 162/97 124/86 O2 Sat by Pulse 97 96 Oximetry 02/21/23 02/21/23 08:19 11:43 Temperature 98.2 F Pulse Rate 69 85 Respiratory 18 22 Rate Blood Pressure 129/96 O2 Sat by Pulse 94 L Oximetry - Reevaluation(s) Reevaluation #1: 02/21/23 08:45 Patient reevaluated. Patient reports symptomatic improvement status post medications. Aware awaiting imaging results. Oxygen saturation on room air remains to be 98%. Reevaluation #2: 02/21/23 10:39 case is discussed with [facility] who agrees with ER to ER transfer caase discussed with Dr. Hernandez who recommends trasnferring the patient for evaluation 11:04 Attempted call to ER for transfer. Per transfer center, [facility], unable to reach ER and to wait 15 minutes to call back Reevaluation #3: 02/21/23 11:[address] Stanley who recommends keeping the patient NPO Reevaluation #4: 02/21/23 11:15 Case is discussed with Dr. Zambrano ED attending who agrees and accepts the patient for ER to ER transfer EKG Findings - EKG Comments: EKG Findings:: I interpreted the following: EKG performed at 07:43 75 bpm normal sinus rhythm SC interval 172, QRS duration 100, QT/QTc 358/388 Medical Decision Making - Medical Decision Making Was pt. sent in by a medical professional or institution (, PA, ASSISTANT STORE LEADER, urgent care, hospital, or penitentiary...) When possible be specific @ -[No] Did you speak to anyone other than the patient for history (EMS, parent, family, police, friend...)? What history was obtained from this source @ -[No] Did you review nursing and triage notes (agree or disagree)? Why? @ -[I reviewed and agree with nursing and triage notes] Were old charts reviewed (outside hosp., previous admission, EMS record, old EKG, old radiological studies, urgent care reports/EKG's, penitentiary records)? Report findings @ -[No old charts were reviewed] Differential Diagnosis (chest pain, altered mental status, abdominal pain women, abdominal pain men, vaginal bleeding, weakness, fever, dyspnea, syncope, headache, dizziness, GI bleed, back pain, seizure, CVA, palpatations, mental health, musculoskeletal)? @ -[not applicable] EKG interpreted by me (3pts min.). @ -[As above] X-rays interpreted by me (1pt min.). @ Chest x-ray does not reveal any focal consolidation or cardiomegaly CT interpreted by me (1pt min.). @ -[None done] U/S interpreted by me (1pt. min.). @ -Soft tissue ultrasound reveals post tracheotomy changes What testing was considered but not performed or refused? (CT, X-rays, U/S, labs)? Why? @ -[None] What meds were considered but not given or refused? Why? @ -[None] Did you discuss the management of the patient with other professionals (professionals i.e. Dr., PA, ASSISTANT STORE LEADER, lab, RT, psych nurse, social worker school, process excellence manager, teacher, loan servicing officer, returned case inspector)? Give summary @ -Case discussed with Dr. Zambrano ED attending, [facility] who agrees and a ccepts the patient for ER to ER transfer - Case discussed with Dr. Alanis who agrees and accepts the patient and recommended to the patient and feel Was smoking cessation discussed for >3mins.? @ -[No] Was critical care preformed (if so, how long)? @ -[No] Were there social determinants of health that impacted care today? How? (Homelessness, low income, unemployed, alcoholism, drug addiction, transport ation, low edu. Level, literacy, decrease access to med. care, longterm, rehab)? @ -[No] Was there de-escalation of care discussed even if they declined (Discuss DNR or withdrawal of care, Hospice)? DNR status @ -[No] What co-morbidities impacted this encounter? (DM, HTN, Smoking, COPD, CAD, Cancer, CVA, ARF, Chemo, Hep., AIDS, mental health diagnosis, sleep apnea, morbid obesity)? @ -[None] Was patient admitted / discharged? Hospital course, mention meds given and route, prescriptions, significant lab abnormalities, going to OR and other pertinent info. @ -[place] [facility] [place] This is a pleasant 57-year-old male who presents the emergency department with shortness of breath. Patient has stridor at rest. Oxygen saturation maintained 99% on room air. He was provided Decadron and 2 doses of racemic epinephrine. Patient had laboratory studies wh ich were unremarkable. Ultrasound reveals tracheotomy changes with record scar tissue around the site. Case is discussed with assistance and [facility] who agrees to accept the patient for ER to ER transfer. Patient will be transferred to [facility] in stable condition. Case is discussed with, Dr. Arana ED attending who agrees with plan of care Undiagnosed new problem with uncertain prognosis? @ -[No] Drug Therapy requiring intensive monitoring for toxicity (Heparin, Nitro, Insulin, Cardizem)? @ -[No] Were any procedures done? @ -[No] Diagnosis/symptom? @ Stridor - tracheosomy complication Acute, or Chronic, or Acute on Chronic? @ -Acute Uncomplicated (without systemic symptoms) or Complicated (systemic symptoms)? @ Uncomplicated Side effects of treatment? @ -[No] Exacerbation, Progression, or Severe Exacerbation? @ -[No] Poses a threat to life or bodily function? How? (Chest pain, [place], [place], pneumonia, PE, COPD, DKA, ARF, appy, cholecystitis, CVA, Diverticulitis, Homicidal, Suicidal, threat to staff... and all critical care pts) @ -Yes, Airway compromise - Lab Data Result diagrams: 02/21/23 07:58 02/21/23 07:58 Lab Results 02/21/23 02/21/23 02/21/23 Range/Units 07:58 07:58 07:58 WBC 4.5 (3.8-10.6) k/uL RBC 5.06 (4.30-5.90) m/uL Hgb 15.3 (13.0-17.5) gm/dL Hct 45.9 (39.0-53.0) % MCV 90.8 (80.0-100.0) fL MCH 30.2 (25.0-35.0) pg MCHC 33.2 (31.0-37.0) g/dL RDW 13.3 (11.5-15.5) % Plt Count 238 (150-450) k/uL MPV 7.8 Neutrophils % 51 % Lymphocytes % 31 % Monocytes % 8 % Eosinophils % 5 % Basophils % 1 % Neutrophils # 2.3 (1.3-7.7) k/uL Lymphocytes # 1.4 (1.0-4.8) k/uL Monocytes # 0.3 (0-1.0) k/uL Eosinophils # 0.2 (0-0.7) k/uL Basophils # 0.1 (0-0.2) k/uL Sodium 141 (137-145) mmol/L Potassium 4.9 (3.5-5.1) mmol/L Chloride 106 (98-107) mmol/L Carbon Dioxide 27 (22-30) mmol/L Anion Gap 8 mmol/L BUN 24 H (9-20) mg/dL Creatinine 1.26 H (0.66-1.25) mg/dL Est GFR (CKD-EPI)AfAm 73 (>60 ml/min/1.73 sqM) Est GFR (CKD-EPI)NonAf 63 (>60 ml/min/1.73 sqM) Glucose 117 H (74-99) mg/dL Calcium 9.6 (8.4-10.2) mg/dL Total Bilirubin 0.4 (0.2-1.3) mg/dL AST 26 (17-59) U/L ALT 42 (4-49) U/L Alkaline Phosphatase 64 (38-126) U/L Total Protein 6.1 L (6.3-8.2) g/dL Albumin 3.9 (3.5-5.0) g/dL Influenza Type A (PCR) Not Detected (Not Detectd) Influenza Type B (PCR) Not Detected (Not Detectd) RSV (PCR) Not Detected (Not Detectd) SARS-CoV-2 (PCR) Not Detected (Not Detectd) Disposition Clinical Impression: Dyspnea, Stridor Disposition: OTHER INSTITUTION NOT DEFINED Is patient prescribed a controlled substance at d/c from ED?: No Referrals: Alfonso Palm DO [Primary Care Provider] - 1-2 days Time of Disposition: 10:30 - Out of Hospital Transfer - Req. Specs Out of Hospital Transfer - Requested Specifics: [place] [place]
[2023-02-21 08:09] LABS: Basophils # (A) 0.1 k/uL (0-0.2); Basophils % (A) 1 %; Eosinophils # (A) 0.2 k/uL (0-0.7); Eosinophils % (A) 5 %; HCT 45.9 % (39.0-53.0); HGB 15.3 gm/dL (13.0-17.5); Lymphocytes # (A) 1.4 k/uL (1.0-4.8); Lymphocytes % (A) 31 %; MCH 30.2 pg (25.0-35.0); MCHC 33.2 g/dL (31.0-37.0); MCV 90.8 fL (80.0-100.0); Mean Platelet Volume 7.8; Monocytes # (A) 0.3 k/uL (0-1.0); Monocytes % (A) 8 %; Neutrophils # (A) 2.3 k/uL (1.3-7.7); Neutrophils % (A) 51 %; Platelet Count 238 k/uL (150-450); RBC 5.06 m/uL (4.30-5.90); RDW 13.3 % (11.5-15.5); WBC 4.5 k/uL (3.8-10.6)
[2023-02-21 08:19] LABS: ALT 42 U/L (4-49); AST 26 U/L (17-59); African American GFR (CKD) 73 (>60 ml/min/1.73 sqM); Albumin 3.9 g/dL (3.5-5.0); Alkaline Phosphatase 64 U/L (38-126); Anion Gap 8 mmol/L; Blood Urea Nitrogen 24 mg/dL (9-20); Calcium 9.6 mg/dL (8.4-10.2); Carbon Dioxide 27 mmol/L (22-30); Chloride 106 mmol/L (98-107); Glucose 117 mg/dL (74-99); Non-African American GFR(CKD) 63 (>60 ml/min/1.73 sqM); Potassium 4.9 mmol/L (3.5-5.1); Sodium 141 mmol/L (137-145); Total Bilirubin 0.4 mg/dL (0.2-1.3); Total Protein 6.1 g/dL (6.3-8.2)
--- NOTE | 2023-02-21 08:31 | XR ---
EXAMINATION TYPE: XR chest 2V DATE OF EXAM: 02/21/2023 8:08 AM CLINICAL INDICATION:Male, 57 years old with history of SOB; [facility] COMPARISON: None TECHNIQUE: XR chest 2V. Frontal PA and lateral views of the chest. FINDINGS: Lines/Tubes: EKG leads overlie the chest. No indwelling lines are seen. Heart/mediastinum: Heart size upper normal. Mediastinal silhouette is unremarkable. Nora appear sta ble. Pulmonary vascularity: Not increased, Lungs/Pleura: There is no evidence of pleural effusion, focal consolidation, or pneumothorax. Simila r appearing mild interstitial densities likely chronic changes. Musculoskeletal: No acute osseous abnormality demonstrated in the limits of the exam. Mild degenerat nico changes of the spine and shoulders. ACDF changes in the lower cervical spine. Other findings: None. IMPRESSION: No acute findings, or significant interval change.
--- NOTE | 2023-02-21 09:23 | CT ---
EXAMINATION TYPE: CT soft tissue neck wo con CT DLP: 456.4 mGycm, Automated exposure control for dose reduction was used. DATE OF EXAM: 02/21/2023 8:27 AM COMPARISON: Chest x-ray performed same day and 08/20/2021. CLINICAL INDICATION:Male, 57 years old with history of SOB; [facility], pt. has hx. of scar tissues in his t hroat from a trach, SOB TECHNIQUE: Noncontrast CT of the neck was performed. Axial sections with coronal and sagittal reform ats were obtained. Contrast used: mL of , Oral contrast used: none. FINDINGS: CT examination of the neck is limited without IV contrast. Brain, orbits, sinuses: Visualized portions are grossly unremarkable. Spaces of the neck: Review of pharyngeal mucosal space shows at the level of the epiglottis there are small radiodensities suggesting soft tissue calcifications along the posterolateral hypopharynx bila terally, with slight asymmetric soft tissue density noted on the left. Parapharyngeal fat planes are preserved. Musculoskeletal: No acute osseous pathology. Status post ACDF C5-C6 with disc space prosthesis and ne ar complete interbody fusion. Mild degenerative changes of the cervical spine, with [id number] endplate osteophytes anterior more than posterior at C4-C5 and C6-C7. Mild canal stenosis and mild t o moderate bilateral neural foraminal stenosis C4-C5. Overall straightening of the normal cervical lo rdosis. Lymph nodes: Multiple nonenlarged lymph nodes are seen along both anterior chains of the neck. Vascular structures: No significant atherosclerotic calcifications. Airway: Epiglottis appears within normal limits. Vocal cords appear somewhat mildly thickened versus physiologic appearance. Below the larynx there is some soft tissue indentation along the anterior mid line neck with underlying radiodensities along the anterior aspect of the trachea suggestive of calci fications/post tracheostomy changes. At and just below this level, there is amorphous soft tissue den sity around the anterior aspect of the trachea with moderate narrowing of the anterior trachea in thi s region, refer axial image 23 series 201. The visualized trachea inferior to this appears patent wit h minimal scattered mucous secretions. Included upper chest: Few nonenlarged and borderline prominent mediastinal lymph nodes. Lung apices s how bandlike and strandy opacities on the right more than left, favored to be chronic scarring. Soft tissues/Thyroid: Thyroid and remainder of the soft tissues are unremarkable. Other: none. IMPRESSION 1. Limited unenhanced study. 2. Soft tissue calcifications with mild asymmetric soft tissue density on the left at the posterior lateral aspect of the hypopharynx. 3. Vocal cords appear mildly thickened versus physiologic appearance. 4. Below the larynx there is some soft tissue indentation along the anterior midline neck with under lying radiodensities along the anterior aspect of the trachea suggestive of calcifications/post trach eostomy changes. At and just below this level, there is amorphous soft tissue density around the ante rior aspect of the trachea with moderate narrowing of the anterior trachea in this region. 5. The above could be correlated with direct visual inspection as clinically warranted.
[2023-02-21 11:55] VITALS: BP 129/96; PULSE 85; RESP 22; TEMP 98.2
== END 2023-02-21 12:17 | disposition other institution (70) ==
LOC: EC 07:21
DX: R06.00 Dyspnea, unspecified (principal); R06.1 Stridor; Z88.8 Allergy status to other drugs, medicaments and biological substances; Z20.822 Contact with and (suspected) exposure to COVID-19
CPT/HCPCS: 36415; 94640; 93005; 80053; 85025; 87636; 71046; 70490; 99285; 96374; J1100